=== PATIENT | female | born 1995 | race Caucasian/White ===

== ENCOUNTER 2017-08-23 18:34 | Emergency (ER) | payer MEDICAID ==
[~2017-08-23] VITALS: Ht 165.1 cm; Wt 97.5 kg
[2017-08-23 19:15] LABS: URINE BILIRUBIN - DIPSTICK NEGATIVE (NEG); URINE BLOOD 3+ (NEG)
[2017-08-23 19:43] LABS: HEMOGLOBIN 14.1 g/dL (12.2-16.2)
[2017-08-23 19:44] LABS: LYMPH # 2.6 K/mm3 (0.7-4.5)
--- NOTE | 2017-08-23 20:05 | RADIOLOGY REPORT PS360 ---
CT HEAD W/O CONTRAST INDICATION: Generalized facial tingling, headache Routine axial images for brain followed by additional post-processing axial bone window images. Axial CT scanning from the base of the skull through the vertex to evaluate the brain was performed. Subsequent post processing 2-D CT bone windows were submitted to PACS and are useful to evaluate calvarium, visualize portions of paranasal sinuses, mastoids and base of skull. Multiaxial scans are obtained from the base of the skull to the vertex and performed without contrast. The base of the skull appeared normal except for mild to moderate inflammatory changes of the ethmoid sinuses. The ventricular system was normal. There was no ischemic infarct or bleed and there were no extra-axial fluid collections. The bony calvarium appeared intact. IMPRESSION: Negative noncontrast CT scan of the brain except for mild and likely acute ethmoid sinus disease
--- NOTE | 2017-08-23 20:49 | Emergency Room Report ---
History of Present Illness Time Seen by 2003 Presenting Problem in Triage Pt arrived:Walked Presenting Problem:NUMBNESS/ TINGLING TO BOTH HANDS AND LIPS, BEGAN 153 TODAY, A/O SPEECH CLEAR, AMBULATORY WITHOUT ASSIST Onset of symptoms date/time:/ or onset unknown for:MEDICAL HX UNKNOWN Treatment Prior to Arrival: OPHTHALMIC ASST Provided by: Sepsis Risk Assessment: Temp: 98.4 B/P: 117/69 MAP: 105 Pulse: 58 Resp: 20 Recent fever? N Clinical Suspician of Infection? N Mental Status: 1 - Regular (Normal Baseline) Sepsis Risk:Low Sepsis Risk Have you (or family members/close friends) recently traveled outside the [place]? N If Yes, where/when: Have you had exposure to infectious disease within the past month? N TB? Other? Specify: Source patient, RN notes reviewed, old records Exam Limitations no limitations Comment episode of tingling to perioral and upper ext with some discoloration to fingertips but no neuro sx and no speech or visual sx and at baseline now- Cardiac Chest Pain Chest pain indicative of cardiac No Timing/Duration this evening Severity moderate ALLERGIES Coded Allergies: Penicillins (12/24/16) topiramate (From TOPAMAX) (12/24/16) Home Medications Active Scripts Prednisone (Prednisone 20MG) 20 MG PO BID #10 TAB Prov: 12/24/16 BENZONATATE (Benzonatate) 100 MG PO TID #15 CAP Prov: 12/24/16 Reported Medications Albuterol Sulfate (Ventolin Hfa) 0.09 MG IH Q4HP PRN BREATHING #18 History Medical History General CAD? No Angina: No [place]: No Hypertension? No Hyperlipidemia? No CHF? No DVT? No PE? No COPD? No Asthma? Yes Anemia? No GERD? No Gastric ulcers? No GI Bleed? No Hernia? No Thyroid Problems? No Hypothyroidism? No CVA? No Seizures? No Diabetes? No Renal Insuffiency? No End Stage Renal Disease? No UTI? Yes Stones? No BPH? No GB Disease: No Nephritic Syndrome? No Asplenia? No Hepatitis? No Sickle Cell Disease? No Arthritis? No Migraines? No Cataracts? No Glaucoma? No MRSA? No HIV? No TB? No Anxiety? Yes Depression? No Cancer? No More? 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 Respiratory denies cough, denies shortness of breath, denies wheezing Cardiovascular denies chest pain, denies palpitations, denies syncope Gastrointestinal denies abdominal pain, denies diarrhea, denies vomiting Genitourinary denies: dysuria, frequency, hesitancy, hematuria. Musculoskeletal denies back pain, denies joint pain, denies joint swelling, denies neck pain Skin denies rash Psychiatric/Neurological see HPI, denies headache, denies seizure, tingling Physical Exam Vital Signs Vital Signs Date Time Temp Pulse Resp B/P Pulse O2 O2 Flow FiO2 Ox Delivery Rate 08/23 2015 98.4 58 20 117/69 99 08/23 1838 98.1 76 18 140/88 99 - WBC >12,000 or <4,000 or 10% bands? 2 or more SIRS Criteria Met? B/P:117/69 MAP:105 Creatinine >2.0? UA output<0.5ml/kg/hr for 2 hrs? Platelet count >100,000? Lactate >2.0mmol/1? INR >1.2 or PTT > than 60 sec? Evidence of Organ Dysfunction? Provider documented clinical suspician of infection? N Sepsis Criteria Count: 0 Sepsis Risk: Low Sepsis Risk General Appearance no apparent distress Eye Exam - bilateral eye PERRL, bilateral eye EOMI Ear, Nose, Throat normal ENT inspection Neck supple Respiratory Status No: respiratory distress. Lung Sounds bilateral: lungs clear. 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 No Results/Orders Laboratory Tests 08/23/17 1855: Sodium 140, Potassium 3.9, Chloride 105, Carbon Dioxide 26, BUN 8, Creatinine 0.8, Estimated Creat Clear 171, Estimated GFR (MDRD) 91, Glucose 85, Calcium 9.3 , Total Bilirubin 0.2, AST 12 L, ALT 31, Alkaline Phosphatase 86, Total Protein 8.7 H, Albumin 4.3, Globulin 4.4 H, Albumin/Globulin Ratio 1.0 L, WBC 11.6 H , RBC 4.95, Hgb 14.1, Hct 45.6, MCV 92.1, RDW 13.3, Plt Count 301, MPV 7.6, Gran % 65.7, Gran # 7.6, Lymphocytes % 24.0, Monocytes % 4.7, Eosinophils % 5.2, Basophils % 0.5, Lymphocytes # 2.6, Monocytes # 0.5, Eosinophils # 0.6 H, Basophils # 0.1, PUBS MCHC 31.0 L, MCH 28.5, Urine Color YELLOW, Urine Appearance SL CLOUDY, Urine pH 7.0, Ur Specific [place] 1.020, Urine Protein NEGATIVE, Urine Ketones NEGATIVE, Urine Blood 3+ H, Urine Nitrate NEGATIVE, Urine Bilirubin NEGATIVE, Urine Urobilinogen 0.2, Ur Leukocyte Esterase 2+ H, Urine RBC 50-100, Urine WBC 20-50, Ur Squamous Epith Cells 10-20, Amorphous Sediment 3+, Urine Bacteria 2+, Urine Glucose NEGATIVE Orders Procedure Date/time Status DIET-NOTHING BY MOUTH 08/[address] HEAD REQ 08/23 1932 Complete CBC WITH AUTO DIFF 08/23 1932 Complete CHEM 12 PROFILE 08/23 1932 Complete CULTURE, URINE 08/23 1855 Active URINALYSIS/COMPLETE 08/23 1849 Complete URINE 08/23 1849 Complete Departure Departure Time of Disposition 2046 Disposition DC Home or Self Care(routine) Clinical Impression Primary Impression: Perioral numbness Secondary Impressions: UTI (urinary tract infection) Qualifiers: Urinary tract infection type: acute cystitis Hematuria presence: without hematuria Qualified Code: N30.00 - Acute cystitis without hematuria Condition STABLE Referrals JUAN MANUEL ROB (Family) Patient Instructions DI for Numbness/tingling Additional Instructions use meds and see pcp for follow up and urine culture Discharge Counseling Counseled pt/family regarding diagnosis, test results, medications/RX, follow up needs Prescriptions Current Visit Scripts Ciprofloxacin HCl (Cipro 500MG TAB) 500 MG PO BID #14 TAB ED Critical Care Critical Care No at [id number]
[2017-08-23 21:01] VITALS: BP 120/68
--- OUTSIDE RECORDS SUMMARY | 2017-09-01 10:10 | External Medical Summary Rpt | CCD ---
Author Author , SJ Organization SJ Address Unknown Phone [email or web address] Care Team Providers Care Communication Analyst Name Role Phone [employer] Unavailable Unavailable INC, [employer] AHMED ADN, AHMED ADN Unavailable Unavailable AHMED ADN, AHMED ADN Unavailable Unavailable [facility] Unavailable [facility]available [facility], [facility] ALLRAN JR KASSANDRA, ALLRAN Unavailable Unavailable JR KASSANDRA ENGLISH AMBULETT & Unavailable Unavailable AMBULANC, ENGL[facility] ENGLISH AMBULETT & Unavailable Unavailable AMBULANC, [facility] LUIS FERNANDO LES, LUIS FERNANDO Unavailable Unavailable LES LUIS FERNANDO LES, LUIS FERNANDO Unavailable Unavailable LES [facility] Unavailable Unavailable [place], [facility] Unavailable Unavailable MEDICAL GROUP, [facility] BEINEKE, BEINEKE Unavailable Unavailable BEINEKE NANI, BEINEKE Unavailable Unavailable NANI CURRAN AURORA, CURRAN Unavailable Unavailable AURORA BESSON, MANE A, Unavailable Unavailable BESSON, MANE A [employer] Unavailable Unavailable INC., [employer] LEZAMA, LEZAMA Unavailable Unavailable LEZAMA LASHON, LEZAMA LASHON Unavailable Unavailable [facility] Unavailable Unavailable [facility], [facility] PHYSICIAN Unavailable Unavailable PRACTICE [facility], [facility] [employer] Unavailable Unavailable CORBIN JAM, CORBIN JAM Unavailable Unavailable [facility]-VISE, Unavailable Unavailable [facility] SARAH, Unavailable Unavailable [facility] SARAH BUTROS MARISEL, BUTROS Unavailable Unavailable MARISEL [facility], Unavailable Unavailable [facility] PIERCE MARIANA, PIERCE Unavailable Unavailable MARIANA PIERCE MARIANA, PIERCE Unavailable Unavailable MARIANA [facility] Unavailable Unavailable [facility], [facility] Unavailable Unavailable [facility]OC, [facility] ANNE ALDEN, ANNE Unavailable Unavailable ALDEN CHATTHA SHANNON, CHATTHA Unavailable Unavailable SHANNON [facility] Unavailable Unavailable [facility] WAI BARNETT, WAI Unavailable Unavailable ANIBAL BARNETT, CARRENO Unavailable Unavailable ANIBAL [facility], Unavailable Unavailable [facility] RODAS, RODAS Unavailable Unavailable HERNANDO, HERNANDO Unavailable Unavailable RICHARDSON SERA, Unavailable Unavailable RICHARDSON SERA [facility] Unavailable Unavailable SPECIAL, [facility] FLOMENHOFT MANUEL, Unavailable Unavailable FLOMENHOFT MANUEL FLOMENHOFT MANUEL, Unavailable Unavailable [facility]OMENHO[facility] MANUEL MAGANA SET, MAGANA SET Unavailable Unavailable FLAVIO, FLAVIO Unavailable Unavailable FLAVIO JANA, FLAVIO Unavailable Unavailable JANA FLAVIO JANA, FLAVIO Unavailable Unavailable JANA NONA, NONA Unavailable Unavailable NONA, NONA Unavailable Unavailable GRAEBE, ZEINAB S, Unavailable Unavailable GRAEBE, ZEINAB S GREISNER III, Unavailable Unavailable GREISNER III RUSSEL RHO, RUSSEL Unavailable Unavailable RHO RUSSEL RHO, RUSSEL Unavailable Unavailable RHO HAGENSCHNEIDER LASHON, Unavailable Unavailable HAGENSCHNEIDER LASHON HAGENSCHNEIDER LASHON, Unavailable Unavailable HAGENSCHNEIDER LASHON HAJIBRAHIM DHAVAL, Unavailable Unavailable HAJIBRAHIM DHAVAL ZEPEDA CLEVELAND, Unavailable Unavailable ZEPEDA CLEVELAND ZEPEDA C[place]AND, Unavailable Unavailable ZEPEDA [facility] ROJAS JOSE, ROJAS Unavailable Unavailable JOSE OKEEFE JOSE, OKEEFE Unavailable Unavailable JOSE [facility] Unavailable Unavailable INC, [facility] CHAWLA FERMÍN, CHAWLA Unavailable Unavailable FERMÍN CHAWLA, ZEINAB S, Unavailable Unavailable CHAWLA, ZEINAB S SIENA, DOUGLAS, SIENA, Unavailable Unavailable DOUGLAS HOWARD JANA, HOWARD JANA Unavailable Unavailable HOWARD JANA, HOWARD JANA Unavailable Unavailable HOUSMAN SOY, HOUSMAN Unavailable Unavailable SOY HOUSMAN SOY, HOUSMAN Unavailable Unavailable SOY BHAVIN CEC, BHAVIN Unavailable Unavailable CEC KABA SATYA, KABA SATYA Unavailable Unavailable KABA SATYA, KABA SATYA Unavailable Unavailable ASTRID NAN, ASTRID Unavailable Unavailable NAN ASTRID NAN, ASTRID Unavailable Unavailable NAN [facility] Unavailable [facility]available [facility], [facility] MCINTYRE, MCINTYRE Unavailable Unavailable [facility] Unavailable Unavailable GROUP PS, [facility] Unavailable Unavailable [facility], [facility], Unavailable Unavailable [facility] Unavailable Unavailable HOLDING, [facility] Unavailable Unavailable [facility]INGS, [facility] Unavailable Unavailable HOLDINGS[facility] Unavailable Unavailable HOLDINGS, [facility], Unavailable Unavailable [facility] ADLER TONYA, ADLER Unavailable Unavailable TONYA ADLER TONYA, ADLER Unavailable Unavailable TONYA [facility] Unavailable Unavailable COGOVT, [facility] Unavailable Unavailable COGOVT, [facility] SIENNA ANT, SIENNA ANT Unavailable Unavailable SIENNA ANT, SIENNA ANT Unavailable Unavailable ROSAMARIA DREAD, ROSAMARIA Unavailable Unavailable DREAD ROSAMARIA DREAD, ROSAMARIA Unavailable Unavailable DREAD ROSAMARIA, KRAIG, Unavailable Unavailable ROSAMARIA, KRAIG DREW GRE, Unavailable Unavailable DREW GRE DREW GRE, Unavailable Unavailable DREW GRE INGE CHAD, Unavailable Unavailable INGE CHAD INGE CHAD, Unavailable Unavailable INGE CHAD INGE, CHAD B, Unavailable Unavailable INGE, CHAD B MAUL PRANAV, MAUL PRANAV Unavailable Unavailable [facility] Unavailable Unavailable ASSOCIAT, [facility] MOODY LOPEZ JR Unavailable Unavailable F, JOHN RODRIGUEZ, MOODY F [facility] Unavailable Unavailable CARE [facility], [facility], TELE RN [facility] Unavailable Unavailable [facility] TELE RN [facility] MAYBERRY DARRION, MAYBERRY DARRION Unavailable Unavailable MAYBERRY DARRION, MAYBERRY DARRION Unavailable Unavailable [facility], Unavailable Unavailable [facility] HERBERTH EDW, HERBERTH Unavailable Unavailable EDW HERBERTH EDW, HERBERTH Unavailable Unavailable EDW MD STEPHEN CORTEZ, DIEGO, Unavailable Unavailable MD [facility], Unavailable Unavailable [facility] Unavailable Unavailable AMBULANCE SE, [facility] Unavailable Unavailable AMBULANCE SE, [facility] Unavailable Unavailable URGENT TREAT, [facility], Unavailable Unavailable PLLC, [facility] SCHULTE CHR, SCHULTE CHR Unavailable Unavailable SCHULTE CHR, [facility] Unavailable [facility]available [facility] Unavailable Unavailable LAB[facility] PICKJACIIMER RADAMES, Unavailable Unavailable [facility]ICK[facility]ACIIMER [facility], [facility] PRAKASH MUH, PRAKASH Unavailable Unavailable MUH TEE JAIN, Unavailable Unavailable TEE JAIN JR. JAM, Unavailable Unavailable JR. LOTUS RICHARDS RUSSELL Unavailable Unavailable YESSENIA JEAN, YESSENIA Unavailable Unavailable MIRANDA ENGEL NANI, ENGEL Unavailable Unavailable NANI NILDA MIRANDA, NILDA MIRANDA Unavailable Unavailable SOKAN BAB, SOKAN BAB Unavailable Unavailable [facility], Unavailable Unavailable [facility] Unavailable Unavailable EQUIPME, [facility] Unavailable Unavailable EMERGENCY PHYS, [facility] SPIREK ANI, SPIREK Unavailable Unavailable ANI SPIREK ANI, SPIREK Unavailable Unavailable ANI SPIREK, [place] J, Unavailable Unavailable SPIREK, [facility] Unavailable Unavailable [facility], [facility] EVI MAR, EVI Unavailable Unavailable [facility] Unavailable Unavailable [facility], [facility] BROOKS DIOGENES, BROOKS Unavailable Unavailable DIOGENES SWINEY PAT, SWINEY Unavailable Unavailable PAT SWINEY PAT, SWINEY Unavailable Unavailable PAT TANOUS, JR EDW, Unavailable Unavailable TANOUS, JR EDW TANOUS, JR EDW, Unavailable Unavailable TANOUS, JR EDW ELADIO, ELADIO Unavailable Unavailable MONTILLA MOL, MONTILLA MOL Unavailable Unavailable [facility] Unavailable Unavailable LLC, [facility] MARYANN ALICIA, MARYANN Unavailable Unavailable ALICIA MARYANN ALICIA, MARYANN Unavailable Unavailable [facility], Unavailable Unavailable [facility] Unavailable [facility] VILLAFLOR OSI, Unavailable Unavailable VILLAFLOR OSI VILLAFLOR OSI, Unavailable Unavailable VILLAFLOR OSI VORKPOR EMIGDIO, VORKPOR Unavailable Unavailable EMIGDIO VORKPOR EMIGDIO, VORKPOR Unavailable Unavailable EMIGDIO [facility] Unavailable Unavailable #[id number], [id number] # Unavailable [facility]available [id number], [facility] # [id number] [facility] Unavailable Unavailable DEPT KIERA, [facility] DEPT K[facility] Un[facility], [facility] YONGBANG ALB, Unavailable Unavailable [facility] YOUNG VIRGINIE, YOUNG VIRGINIE Unavailable Unavailable YOUNG JR VIRGINIE, YOUNG Unavailable Unavailable JR VIRGINIE YOUNG JR VIRGINIE, YOUNG Unavailable Unavailable JR VIRGINIE YOUNG, DINAH R, Unavailable Unavailable YOUNG, DINAH R [facility], Unavailable Unavailable [facility] RADHA MAT, RADHA MAT Unavailable Unavailable VALERIE GARCIA, Unavailable Unavailable VALERIE GARCIA Purpose Continuity of Care Document - 02-19-2007 through 2016 Problems Code Diagnosis DOS Provider Status R21 RASH AND 08-01-2017 [facility] NONSPECIFIC ASSOC OF SKIN ERUPTION [id number] ADVERS EFF 08-01-2017 [facility] OTH RX MEDS [facility] BIO ASSOC OF SUBSTANCES INIT ENC [id number] ANAPHYLACTI 08-01-2017 [facility] & C SHOCK [facility] UNSPECIFIED ASSOC OF INITIAL ENCOUNTER J029 ACUTE 06-27-2017 [facility] UNSPECIFIED J4521 MILD 06-27-2017 [facility] INTERMITTEN [facility]INIC T ASTHMA WITH ACUTE EXACERBATIO N R198 OTH SPEC SX 06-13-2017 [facility] IN[facility] THE [place] DIGESTV SYS & ABD H79650 ENCOUNTER 06-07-2017 [facility] JET MAN EXAM DISTRICT GENERAL RTN HLTH DEPT W/O KIERA ABNORMAL FIND Z113 ENCOUNTER 06-07-2017 [facility] SCREEN DISTRICT INFECTIONS HLTH DEPT SEXL MODE KIERA TRANSMISSN Z1239 ENCOUNTER 06-07-2017 [facility] OTHER DISTRICT SCREENING HLTH DEPT MALIG KIERA NEOPLASM BREAST Z3042 ENCOUNTER 06-07-2017 [facility] SURVEILLANC DISTRICT E HLTH DEPT INJECTABLE KIERA CONTRACEPTI VE Z3189 ENCOUNTER 06-07-2017 [facility] FOR OTHER DISTRICT PROCREATIVE HLTH DEPT MANAGEMENT KIERA Z3202 ENCOUNTER 06-07-2017 [facility] FOR DISTRICT HLTH DEPT TEST RESULT KIERA NEGATIVE R5383 OTHER 06-06-2017 [facility] [place] Z0000 ENCOUNTER 06-06-2017 [facility] GEN ADULT [facility] MED EXAM [place] W/O ABNORMAL FIND K5900 CONSTIPATIO 05-16-2017 [facility] [place] [facility] UNSPECIFIED R109 UNSPECIFIED 05-16-2017 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 M4606 SPINAL 02-07-2017 NONA ENTHESOPATH Y LUMBAR REGION M545 LOW BACK 02-07-2017 NONA PAIN K19003 MUSCLE 02-07-2017 NONA SPASM OF BACK M9903 SEGMENTAL & 02-07-2017 NONA SOMATIC DYSFUNCTION OF LUMBAR REGION M9904 SEGMENTAL & 02-07-2017 NONA SOMATIC DYSFUNCTION OF SACRAL REGION R1110 VOMITING 02-07-2017 [facility]O [facility] UNSPECIFIED URBAN COGOVT R410 DISORIENTAT 02-07-2017 [facility] [place]TE ION URBAN UNSPECIFIED COGOVT R4182 ALTERED 02-07-2017 [facility] STATUS ASSOC UNSPECIFIED R51 HEADACHE 02-07-2017 [facility]UN[facility]ETTE URBAN COGOVT R569 UNSPECIFIED 02-07-2017 [facility] CONVULSIONS [place] [id number] STRAIN 02-07-2017 NONA MUSCLE FASCIA & TENDON LOW BACK INITIAL Z833 FAMILY 02-07-2017 [facility] HISTORY OF HEALTH DIABETES [place] MELLITUS Z880 ALLERGY 02-07-2017 [facility] STATUS TO HEALTH PENICILLIN [place] Z888 ALLERGY 02-07-2017 [facility] STATUS OT HEALTH RX MEDS & [place] BIOLOG SUBSTANC STS J101 FLU D/T OTH 01-17-2017 [facility] ID FLU CLINIC VIRUS OTH RESP MANIFESTATI ONS R05 COUGH 01-17-2017 [facility] J209 ACUTE 12-24-2016 [facility] UNSPECIFIED INC J40 BRONCHITIS 12-24-2016 [facility] NOT PHYSICIANS, SPECIFIED PLLC ACUTE OR CHRONIC Z7689 PERSONS 12-15-2016 [facility] CIRCUMSTANC ES J020 STREPTOCOCC 12-10-2016 [facility] AL [facility]INIC PHARYNGITIS O69838 PAIN IN 10-23-2016 [facility] RIGHT N EMERGENCY SHOULDER PHYS T34974 PAIN IN 10-23-2016 [facility] [place] RIGHT ELBOW RADIOLOGY Y03125 PAIN IN 10-23-2016 [facility] [place] RIGHT KNEE RADIOLOGY R0781 PLEURODYNIA 10-23-2016 [facility]0789 OTHER CHEST 10-23-2016 [facility] [place] PAIN RADIOLOGY D24794L ABRASION OF 10-23-2016 [facility] RIGHT N EMERGENCY ELBOW PHYS INITIAL ENCOUNTER V32729F ABRASION 10-23-2016 [facility] RIGHT KNEE N EMERGENCY INITIAL PHYS ENCOUNTER L80887 OTHER LONG 10-23-[address] [place] [facility] CURRENT HOSPITAL DRUG THERAPY L299 PRURITUS 07-01-2016 [facility] UNSPECIFIED CLINIC L309 DERMATITIS 06-30-2016 [facility] UNSPECIFIED N EMERGENCY PHYS Z886 ALLERGY 06-30-2016 [facility] STATUS TO [facility]ITY ANALGESIC HOSPITAL AGENT STATUS L509 URTICARIA 06-28-2016 [facility] UNSPECIFIED N EMERGENCY PHYS Z881 ALLERGY 06-28-2016 [facility] STATUS TO COMMUNITY OTHER HOSPITAL ANTIBIOTIC AGENTS STATUS Z6854 BODY MASS 06-08-2016 [facility] INDEX BMI DISTRICT PED >/EQUAL HLTH DEPT 95TH% FOR KIERA AGE R040 EPISTAXIS 06-07-2016 [facility] [id number] CONTUSION 06-07-2016 [facility] OF NOSE N EMERGENCY INITIAL PHYS ENCOUNTER Z9049 ACQUIRED 06-07-2016 [facility] ABSENCE OTH COMMUNITY SPEC PARTS HOSPITAL DIGESTIVE TRACT K200 EOSINOPHILI 05-12-2016 [facility] C DIGESTIVE ESOPHAGITIS CARE CENTER R112 NAUSEA WITH 05-12-2016 [facility] DIGESTIVE UNSPECIFIED CARE CENTER B372 CANDIDIASIS 05-06-2016 [facility] OF SKIN ELIZABETH AND NAIL HOLDINGS E538 DEFICIENCY 05-06-2016 [facility] OF OTHER [facility]IZ[facility] SPECIFIED B HOLDINGS GROUP VITAMINS M546 PAIN IN 05-06-2016 [facility] THORACIC [facility] SPINE HOLDINGS N62 HYPERTROPHY 05-06-2016 [facility] OF BREAST [facility]IZ[facility] HOLDINGS R12 HEARTBURN 05-06-2016 [facility] ELIZABETH HOLDINGS K219 GASTRO-ESOP 04-28-2016 [facility] REFLUX ANESTHESIA DISEASE GROUP PS WITHOUT ESOPHAGITIS A0839 OTHER VIRAL 01-15-2016 [facility] ENTERITIS [facility] URGENT TREAT J4530 MILD 01-15-2016 [facility] ASTHMA URGENT UNCOMPLICAT TREAT ED W30850 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[facility] 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 KIERA J028 ACUTE 11-24-2015 [facility] PHARYNGITIS [facility] DUE TO URGENT OTHER SPEC TREAT ORGANISMS J4522 MILD 11-24-2015 [facility] T ASTHMA URGENT WITH STATUS TREAT ASTHMATICUS R062 WHEEZING 11-24-2015 [facility] URGENT TREAT R102 PELVIC AND 10-17-2015 VORKPOR EMIGDIO PERINEAL PAIN D529 FOLATE 09-10-2015 [facility] DEFICIENCY DISTRICT ANEMIA HLTH DEPT UNSPECIFIED KIERA Z23 ENCOUNTER 09-10-2015 [facility] FOR DISTRICT IMMUNIZATIO HLTH DEPT N KIERA R1310 DYSPHAGIA 09-05-2015 EAR, NOSE UNSPECIFIED AND THROAT SPECIAL R1313 DYSPHAGIA 09-01-2015 [facility] PHARYNGEAL [facility] PHASE URGENT TREAT 5589 OTH&UNSPEC 06-14-2015 [facility] BEAL NONINFECTIO US GASTROENTER ITIS&COLITI S 31343 NAUSEA WITH 06-14-2015 [facility] [place] VOMITING RADIOLOGY 98182 ABDOMINAL 06-14-2015 [facility] BEAL PAIN RIGHT LOWER QUADRANT V2549 SURVEILLANC 06-10-2015 [facility] E OTH PREV DISTRICT PRSC [facility] DEPT CONTRACEPT KIERA METHOD V2689 OTHER 06-10-2015 [facility] SPECIFIED DISTRICT PROCREATIVE [facility] DEPT MANAGEMENT KIREA 61658 ASTHMA, 05-08-2015 [facility]PECIFIED [facility] , INC UNSPECIFIED STATUS 71092 UNSPECIFIED 05-08-2015 [facility] SITE OF PHYSICIANS, ANKLE PLLC SPRAIN AND STRAIN 2299 BENIGN 05-06-2015 [place] NEOPLASM OF [facility] HOSPITAL UNSPECIFIED SITE 5990 URINARY 05-06-2015 [facility] PAT TRACT INFECTION SITE NOT SPECIFIED 6202 OTHER AND 05-06-2015 [facility] PAT UNSPECIFIED OVARIAN CYST 46486 ABDOMINAL 05-06-2015 [facility] PAIN, COMMUNITY UNSPECIFIED HOSPITAL SITE 7919 OTHER 05-06-2015 [facility] NONSPECIFIC COMMUNITY FINDING HOSPITAL EXAMINATION OF URINE V140 PERSONAL 05-06-2015 [facility] HISTORY OF COMMUNITY ALLERGY TO HOSPITAL PENICILLIN V1582 PERS HX 05-06-2015 [facility] TOBACCO USE COMMUNITY PRESENTING HOSPITAL HAZARDS HEALTH 73246 PAIN IN 02-22-2015 [facility] [place] JOINT RADIOLOGY PELVIC REGION AND THIGH 86113 CHEST PAIN 02-22-2015 [facility] UNSPECIFIED [facility] AMBULANCE SE 8470 NECK SPRAIN 02-22-2015 [facility] EDW AND STRAIN 8472 LUMBAR 02-22-2015 [facility] EDW SPRAIN AND STRAIN 9221 CONTUSION 02-22-2015 [facility] EDW OF CHEST WALL 9222 CONTUSION 02-22-2015 [facility] EDW OF ABDOMINAL WALL 83735 INJURY OF 02-22-2015 [facility] [place] FACE AND RADIOLOGY NECK OTHER AND UNSPECIFIED 57678 OTHER 02-22-2015 [facility] [place] INJURY OF RADIOLOGY OTHER SITES OF TRUNK 3688 OTHER 02-03-2015 [facility] SPECIFIED MEDICAL VISUAL IMAGING ASS DISTURBANCE S 7231 CERVICALGIA 02-03-2015 [facility] 6259 UNSPEC 12-19-2014 [facility] [place] SYMPTOM RADIOLOGY ASSOC W/FEMALE GENITAL ORGANS 93091 ABDOMINAL 12-19-2014 [place] TENDERNESS [facility] RIGHT LOWER HOSPITAL QUADRANT V1329 PERSONAL HX 12-19-2014 [facility]&OBST ETRIC D/O 7804 DIZZINESS 12-11-2014 [facility] AND CLINIC GIDDINESS 53915 ACUTE 12-03-2014 IN[facility] SEROUS CHAD OTITIS MEDIA 4770 ALLERGIC 12-03-2014 INGE RHINITIS CHAD DUE TO POLLEN 4778 ALLERGIC 12-03-2014 INGE RHINITIS CHAD DUE TO OTHER ALLERGEN 07769 EXTRINSIC 12-03-2014 INGE ASTHMA, CHAD WITH EXACERBATIO N 0088 INTESTINAL 11-01-2014 HOUSMAN SOY INFECTION DUE TO OTHER ORGANISM NEC 76632 DIARRHEA 11-01-2014 [facility] SOY 5362 PERSISTENT 10-31-2014 KABA SATYA VOMITING 80839 SHORTNESS 10-27-2014 [place] [facility] MEDICAL IMAGING ASS 77284 ASTHMA 10-24-2014 [facility] UNSPECIFIED CLINIC WITH EXACERBATIO N 56722 UNSPECIFIED 10-23-2014 [facility]ULT SLEEP PRIMARY DISTURBANCE CARE CLI 63541 INSOMNIA 10-23-2014 [facility]ULT UNSPECIFIED PRIMARY CARE CLI 3829 UNSPECIFIED 10-15-2014 [facility] OTITIS [facility] MEDIA HOLDINGS 462 ACUTE 10-15-2014 [facility] PHARYNGITIS [facility] HOLDINGS 76274 GENERALIZED 10-15-2014 [facility] PAIN [facility]IZ[facility] HOLDINGS 0549 HERPES 10-10-[address] [facility] OF WITHOUT [place] [facility] MENTION OF COMPLICATIO N 0340 STREPTOCOCC 10-09-2014 [facility] AL SORE CLINIC THROAT 73805 UNSPECIFIED 09-30-2014 [facility] INFECTIVE CLINIC OTITIS EXTERNA 7862 COUGH 09-30-2014 [facility] 4779 ALLERGIC 08-22-2014 [facility] RHINITIS PRIMARY CAUSE CARE CLI UNSPECIFIED 7245 UNSPECIFIED 08-22-2014 [facility] ADULT BACKACHE PRIMARY CARE CLI 7177 CHONDROMALA 08-14-2014 [facility] ORTHOPAEDIC P[facility]LLA S SPORT 50809 PAIN IN 08-10-2014 [facility] JOINT, [place] AUSTEN 56697 PAIN IN 07-30-2014 [place] JO[facility], MEDICAL SHOULDER IMAGING ASS REGION 8409 SPRAIN&STRA 07-30-2014 FLAVIO JANA IN UNSPEC SITE SHOULDER&UP PER ARM E9288 OTHER 07-30-2014 FLAVIO JANA ACCIDENT 28783 SPRAIN AND 07-12-2014 [facility] STRAIN OF DELTOID OF ANKLE 20558 UNSPECIFIED 06-11-2014 LUIS FERNANDO LES TINNITUS 59405 SUBJECTIVE 06-11-2014 [facility] TINNITUS PHYSICIAN PRACTICE L 3899 UNSPECIFIED 06-11-2014 [facility] HEARING PHYSICIAN LOSS PRACTICE L 91247 UNSPECIFIED 06-06-2014 [place] VAGINITIS CLINIC AND VULVOVAGINI TIS 7821 RASH AND 06-06-2014 [place] OTHER CLINIC NONSPECIFIC SKIN ERUPTION 58878 UNSPECIFIED 05-31-2014 [place] OTALGIA CLINIC 41450 PAIN IN 05-31-2014 [place] JOINT, CLINIC ANKLE AND FOOT 22062 OTHER 02-25-2014 INGE CHRONIC CHAD ALLERGIC CONJUNCTIVI TIS 00082 EXTRINSIC 02-25-2014 INGE ASTHMA, CHAD UNSPECIFIED 7840 HEADACHE 02-13-2014 [facility] [place] 4659 ACUTE URIS 02-01-2014 ASTRID NAN OF UNSPECIFIED SITE V202 ROUTINE 01-14-2014 [facility] OR [place] CHILD HEALTH CHECK 76545 WHEEZING 12-20-2013 [facility] ANIBAL V0481 NEED 12-06-2013 [facility] PROPHYLACT [place] C VACCINATION &INOCULATIO N FLU 21597 UNSPECIFIED 11-08-2013 [facility] ACUTE [place] NONSUPPURAT MORENITA OTITIS MEDIA 4772 ALLERGIC 11-05-2013 [facility] RHINITIS CHAD DUE TO ANIMAL HAIR AND DANDER V727 DIAGNOSTIC 11-05-2013 IN[facility] SKIN AND CHAD SENSITIZATI ON TESTS 7295 PAIN IN 10-30-2013 [facility], SOFT TELE RN TISSUES OF [place] [facility] [facility] 7823 EDEMA 10-30-2013 [facility], TELE RN [place] [facility] 7881 DYSURIA 10-30-2013 [facility] [place] 9599 INJURY 10-30-2013 HAGENSCHNEI OTHER AND CARLOS LASHON UNSPECIFIED UNSPECIFIED SITE 31468 ACUT 10-11-2013 INGE SUPPRATV CHAD OTITIS MEDIA W/O SPONT RUP EARDRUM V720 EXAMINATION 10-11-2013 D[facility] OF EYES GRE AND VISION 89666 DISORDERS 10-09-2013 ASTRID NAN OF SOFT TISSUE UNSPECIFIED 4739 UNSPECIFIED 09-20-2013 [facility] SINUSITIS CHAD 47156 EXTRINSIC 09-20-2013 [facility] ASTHMA WITH CHAD STATUS ASTHMATICUS 41719 OBESITY, 09-07-2013 [facility] 20852 CHRONIC 09-07-2013 JR TANIA CHOLECYSTIT EDW IS 5758 OTHER 09-07-2013 SIENNA ANT SPECIFIED DISORDER OF GALLBLADDER 5759 UNSPECIFIED 09-04-2013 [facility] GALLBLADDER V7284 UNSPECIFIED 09-04-2013 [facility] VE EXAMINATION 88705 ABDOMINAL 08-08-2013 RUSSEL RHO PAIN RIGHT UPPER QUADRANT 41494 VOMITING 07-28-2013 [facility], ALONE TELE RN [facility] HOS 486 PNEUMONIA, 06-20-2013 [facility] ORGANISM CARLOS LASHON UNSPECIFIED 4660 ACUTE 06-18-2013 PIERCE MARIANA BRONCHITIS 2150 OTH HANK 04-10-2013 ADLER TONYA NEOPLSM CNCTV&OTH SFT TISS HEAD FCE&NCK 07200 NEOPLASMS 04-10-2013 HOWARD JANA UNSPECIFIED NATURE OTH SPECIFIED SITES 72929 ESOPHAGEAL 04-10-2013 [facility] 7856 ENLARGEMENT 04-10-2013 [facility] NODES V7263 PRE-PROCEDU 04-02-2013 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, WEIGHT GAIN TELE RN [facility] HOS 7842 SWELLING 02-28-2013 [facility], MASS OR [facility] LUMP IN [facility] HEAD AND HOS NECK V770 SCREENING 02-28-2013 [facility], FOR THYROID TELE RN DISORDER [facility] HOS V771 SCREENING 02-28-2013 [facility], FOR TELE RN DIABETES [facility] MELLITUS HOS 6119 UNSPECIFIED 12-07-2012 MARYANN ALICIA BREAST DISORDER 6262 EXCESSIVE 12-07-2012 MARYANN ALICIA OR FREQUENT MENSTRUATIO N 22409 OTHER 12-07-2012 MARYANN ALICIA MALAISE AND FATIGUE 55365 HEAD 11-08-2012 ENGLISH INJURY, AMBULETT & UNSPECIFIED AMBULANC 7291 UNSPECIFIED 11-01-2012 [facility]MED ADN MYALGIA AND MYOSITIS 28623 ABDOMINAL 11-01-2012 [facility] PAIN OTHER SPECIFIED SITE 49940 EOSINOPHILI 09-19-2012 [facility]UEL ESOPHAGITIS 2883 EOSINOPHILI 08-28-2012 [facility] HOSPI 5368 DYSPEPSIA&O 08-28-2012 [facility] DISORDERS FUNCTION STOMACH 5379 UNSPECIFIED 08-28-2012 [facility] HOSPI AND DUODENUM 5699 UNSPECIFIED 08-28-2012 [facility] INTEST[facility] 88515 NAUSEA 08-28-2012 [facility] 12025 ABDOMINAL 08-28-2012 [place] [facility], LEFT SERVICES LOWER QUADRANT 56353 ABDOMINAL 08-28-2012 [place] [facility] GENERALIZED V643 PROCEDURE 08-27-2012 [facility], NOT CARRIED TELE RN OUT FOR [facility] TELL[facility] OTHER HOS REASONS 35487 SWELLING OF 08-25-2012 [facility], LIMB TELE RN [facility] [place] HOS E8809 ACCIDENTAL 08-25-2012[facility] FALL ON OR RADIOLOGY FROM OTHER ASSOCIAT STAIRS OR STEPS E8889 UNSPECIFIED 08-25-2012 [facility] AD[facility] FALL 4610 ACUTE 08-01-2012 [facility] MAXILLARY SINUSITIS 59573 OPEN WOUND 03-07-2012 [facility] TE[facility] LIP WITHOUT HOSPITAL MENTION COMPLICATIO N E8490 PLACE OF 03-07-2012 [facility] OCCURRENCE, HOSPITAL HOME E8888 OTHER FALL 03-07-2012 [facility] 6200 FOLLICULAR 12-27-2011 [facility] [place] OVARY 3814 NONSUPPRATV 12-10-2011 JEFE DARRION OTITIS MEDIA NOT SPEC ACUT/CHRON V7231 ROUTINE 11-29-2011 PATHOLOGY & GYNECOLOGIC CYTOLOGY AL LAB EXAMINATION 4619 ACUTE 11-25-2011 JEFE DARRION SINUSITIS, UNSPECIFIED 80989 URINARY 11-25-2011 [facility] DARR[facility] FREQUENCY 6260 ABSENCE OF 10-13-2011 [facility] [employer] [facility] [employer] 29650 PAIN IN 10-01-2011 [place] JOINT, RADIOLOGY UPPER ARM ASSOCIAT 71255 CONTUSION 10-01-2011 [facility] OF [facility] 9593 INJURY 10-01-2011 [facility] OTHER&UNSPE RADIOLOGY CIFIED ASSOCIAT [facility] 6252 MITTELSCHME 09-19-2011 [facility] OSI 10408 PAIN IN 06-16-2011 [place] [facility], HAND RADIOLOGY ASSOCIAT 7937 NONSPC ABN 06-16-2011 [facility] [place] FINDNG RAD RADIOLOGY & OTH EXM ASSOCIAT [place] L SYS 05462 CLOS 06-16-2011 [facility] [place] [facility] MID/PROXIMA L PHALANX/PHA LANG HAND 70570 SPRAIN AND 06-16-2011 [facility] STRAIN OF HOSPITAL UNSPECIFIED SITE OF HAND 21776 CONTUSION 06-16-2011 [facility] 9594 INJURY 06-16-2011 [place] [place] OTHER AND RADIOLOGY UNSPECIFIED ASSOCIAT HAND EXCEPT FINGER E9270 OVEREXERTIO 06-16-2011 [facility] N FROM HOSPITAL SUDDEN STRENUOUS MOVEMENT 6253 DYSMENORRHE 10-21-2010 [facility] ANI A 4658 ACUTE URIS 10-13-2010 [facility] [place] OF OTHER MULTIPLE SITES 4871 INFLUENZA 10-13-2010 [facility] WITH OTHER HOSPITAL RESPIRATORY MANIFESTATI ONS 25768 OTHER 10-13-2010 [place] 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 E8496 PLACE OF 04-13-2010 [facility] PUBLIC BUILDING E9175 STRIKE 04-13-2010 [facility] K ACC OTH OBJ SPORTS W/FALL 2564 POLYCYSTIC 02-05-2010 [facility] GUPTA 5950 ACUTE 02-03-2010 [facility] 6268 OTH D/O 12-10-2009 [facility] MENSTRUATIO MEDICAL N&OTH ABN CLINIC BLEED FE GNT TRACT 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 32408 NYSTAGMUS 06-24-2009 CHILDRENS W/DEFIC VISION SMOOTH ANDLEARNING PURSUIT MOVEMENTS 9063 LATE EFFECT 05-26-2009 [facility] OF HOSPITAL CONTUSION 87079 CONTUSION 05-25-2009 [facility] OF [facility] E8499 UNSPECIFIED 05-25-[address] HOSPITAL OCCURRENCE E8859 FALL FROM 05-25-2009 [facility] OTHER HOSPITAL SLIPPING TRIPPING OR STUMBLING 05872 VISUAL 04-01-2009 [facility] 76965 MIGRAINE 04-17-2008 [facility] W/[facility] W/O INTRACT W/O STAT MIGRNOSUS 23637 EFFUSION OF 03-30-2008 [facility] ANKLE AND RADIOLOGY FOOT JOINT ASSOCIATES PSC 7812 ABNORMALITY 03-30-2008 [facility] OF [facility] 845 SPRAINS AND 03-30-2008 [facility] STRAINS OF HOSPITAL ANKLE AND FOOT 9160 HIP THI 03-30-2008 [facility] ABRASION/FR ICION BURN W/O INF 9170 ABRASION/FR 03-30-2008 [facility] ICTION [facility] FOOT&TOE W/O MENTION INF 11300 CONTUSION 03-30-2008 [facility] OF [facility] V642 SURG/OTH 03-30-2008 [facility] PROC NOT HOSPITAL CARRIED OUT BECAUSE PTS DECN 460 ACUTE 12-22-2007 [facility] ITIS INTERNAL MED 4780 HYPERTROPHY 12-18-2007 INGE, OF NASAL CHAD B TURBINATES 9953 ALLERGY 12-08-2007 [facility] UNSPECIFIED VALLEY NOT INTERNAL ELSEWHERE MED CLASSIFIED 5184 UNSPECIFIED 02-22-2007 [facility] EDEMA OF PEDIA LUNG 5839 NEPHRITIS&N 02-22-2007 [place] [facility] NOT AC/CHRN PEDIA W/UNS PATHAL LES Allergies, Adverse Reactions, Alerts Clinical Alert Notifications Alert Asthma: no influenza vaccine in the last 365 days Medications Na ND Rx Da Fi Fi Am Da Di Ph RX Ph St me C No te ll ll ou ys ag ar # ys at rm s nt no ma ic us Or Da si cy ia de te s n re d TR 50 09 10 30 30 00 KE Ac AZ 11 -1 -0 .0 00 NT ti OD 10 0- 6- 00 01 UC ve ON 43 20 20 03 [place] E 30 17 17 49 50 1 15 CV S MG PH AR TA MA BL CY ET LL C, DB A CV S PH AR MA CY #3 01 6 AC 61 09 10 50 10 00 KE Ac YC 44 -1 -0 .0 00 NT ti LO 20 1- 6- 00 01 UC ve 11 20 20 05 [place] R 20 17 17 84 40 1 70 CV 0 S MG PH AR TA MA BL CY ET LL C, DB A CV S PH AR MA CY #3 01 6 BE 67 08 09 21 7 00 KE Ac NZ 87 -2 -2 .0 00 NT ti ON 70 9- 2- 00 01 UC ve AT 10 20 20 05 [place] AT 60 17 17 51 E 5 88 CV 20 S 0 PH MG AR MA CA CY PS UL LL E C, DB A CV S PH AR MA CY #3 01 6 CE 68 08 09 14 7 00 KE Ac PH 18 -2 -2 .0 00 NT ti AL 00 9- 2- 00 01 UC ve EX 12 20 20 05 [place] IN 20 17 17 51 2 84 CV 50 S 0 PH MG AR MA CA CY PS UL LL E C, DB A CV S PH AR MA CY #3 01 6 VE 00 08 09 18 17 00 KE Ac NT 17 -3 -2 .0 00 NT ti OL 30 0- 2- 00 01 UC ve IN 68 20 20 05 [place] 22 17 17 06 HF 0 53 CV A S 90 PH AR MC MA G CY IN NAILS LL LE C, R DB A CV S PH AR MA CY #3 01 6 TR 50 08 09 30 30 00 KE Ac AZ 11 -1 -0 .0 00 NT ti OD 10 1- 8- 00 01 UC ve ON 43 20 20 03 [place] E 30 17 17 49 50 1 15 CV S MG PH AR TA MA BL CY ET LL C, DB A CV S PH AR MA CY #3 01 6 ME 00 08 09 21 6 00 KE Ac TH 60 -0 -0 .0 00 NT ti YL 34 7- 1- 00 01 UC ve NC 59 20 20 04 [place] ED 31 17 17 88 NI 5 23 CV SO S LO PH NE AR 4 MA CY MG LL DO C, SE PK DB A CV S PH AR MA CY #3 01 6 AZ 59 08 09 6. 5 00 KE Ac IT 76 -0 -0 00 00 NT ti HR 23 7- 1- 0 01 UC ve OM 06 20 20 04 [place] YC 00 17 17 88 IN 1 22 CV S 25 PH 0 AR MG MA CY TA BL LL ET C, DB A CV S PH AR MA CY #3 01 6 BU 00 06 07 30 30 00 KE Ac NC 37 -2 -2 .0 00 NT ti OP 83 6- 8- 00 01 UC ve IO 41 20 20 03 [place] N 20 17 17 92 HC 1 56 CV L S SR PH AR 15 MA 0 CY MG LL TA C, BL ET DB A CV S PH AR MA CY #3 01 6 SY 00 06 07 10 30 00 KE Ac MB 18 -2 -2 .1 00 NT ti IC 60 6- 8- 99 01 UC ve OR 37 20 20 03 KY T 02 17 17 92 16 0 58 CV 0- S 4. PH 5 AR MC MA G CY IN NAILS LL LE C, R DB A CV S PH AR MA CY #3 01 6 CI 13 06 07 30 30 00 KE Ac TA 66 -2 -2 .0 00 NT ti LO 80 6- 8- 00 01 UC ve NC 01 20 20 03 [place] AM 00 17 17 92 5 59 CV HB S R PH 20 AR MA MG CY TA LL BL C, ET DB A CV S PH AR MA CY #3 01 6 VE 00 06 07 18 30 00 KE Ac NT 17 -1 -0 .0 00 NT ti OL 30 2- 7- 00 01 UC ve IN 68 20 20 03 [place] 22 17 17 60 HF 0 12 CV A S 90 PH AR MC MA G CY IN NAILS LL LE C, R DB A CV S PH AR MA CY #3 01 6 TR 50 06 06 30 30 00 KE Ac AZ 11 -0 -3 .0 00 NT ti OD 10 7- 0- 00 01 UC ve ON 43 20 20 03 [place] E 30 17 17 49 50 1 15 CV S MG PH AR TA MA BL CY ET LL C, DB A CV S PH AR MA CY #3 01 6 NC 00 05 06 60 30 00 KE Ac OP 11 -2 -1 .0 00 NT ti RA 51 2- 6- 00 01 UC ve NO 66 20 20 03 [place] LO 00 17 17 07 L 3 86 CV 20 S PH MG AR MA TA CY BL ET LL C, DB A CV S PH AR MA CY #3 01 6 CI 13 05 06 30 30 00 KE Ac TA 66 -2 -1 .0 00 NT ti LO 80 2- 6- 00 01 UC ve NC 01 20 20 03 [place] AM 00 17 17 07 5 85 CV HB S R PH 20 AR MA MG CY TA LL BL C, ET DB A CV S PH AR MA CY #3 01 6 AZ 59 05 06 6. 5 00 KE Ac IT 76 -2 -1 00 00 NT ti HR 23 2- 6- 0 01 UC ve OM 06 20 20 03 [place] YC 00 17 17 07 IN 1 84 CV S 25 PH 0 AR MG MA CY TA BL LL ET C, DB A CV S PH AR MA CY #3 01 6 AL 00 05 06 37 30 00 KE Ac BU 37 -1 -0 5. 00 NT ti TE 88 4- 9- 00 01 UC ve RO 27 20 20 0 00 [place] L 05 17 17 83 MARIE 2 84 CV L S 2. PH 5 AR MG MA /3 CY ML LL C, SO LN DB A CV S PH AR MA CY #3 01 6 VE 00 04 05 18 28 00 KE Ac NT 17 -2 -2 .0 00 NT ti OL 30 9- 6- 00 00 UC ve IN 68 20 20 99 [place] 22 17 17 47 HF 0 81 CV A S 90 PH AR MC MA G CY IN NAILS LL LE C, R DB A CV S PH AR MA CY #3 01 6 AC 31 04 05 20 10 00 KE Ac YC 72 -1 -1 .0 00 NT ti LO 20 7- 2- 00 01 UC ve 77 20 20 02 KY R 70 17 17 18 40 1 25 CV 0 S MG PH AR TA MA BL CY ET LL C, DB A CV S PH AR MA CY #3 01 6 GE 24 03 04 5. 7 00 KE Ac NT 20 -3 -2 00 00 NT ti AM 80 1- 8- 0 01 UC ve IC 58 20 20 01 [place] IN 06 17 17 78 0 52 CV 0. S 3% PH AR EY MA E CY DR OP LL S C, DB A CV S PH AR MA CY #3 01 6 TR 50 03 04 30 30 00 KE Ac AZ 11 -3 -2 .0 00 NT ti OD 10 0- 8- 00 01 UC ve ON 43 20 20 01 [place] E 30 17 17 74 50 1 86 CV S MG PH AR TA MA BL CY ET LL C, DB A CV S PH AR MA CY #3 01 6 CI 13 03 04 30 30 00 KE Ac TA 66 -3 -2 .0 00 NT ti LO 80 0- 8- 00 01 UC ve NC 01 20 20 01 [place] AM 00 17 17 74 5 84 CV HB S R PH 20 AR MA MG CY TA LL BL C, ET DB A CV S PH AR MA CY #3 01 6 VE 00 03 04 18 29 00 KE Ac NT 17 -1 -1 .0 00 NT ti OL 30 9- 4- 00 00 UC ve IN 68 20 20 99 [place] 22 17 17 47 HF 0 81 CV A S 90 PH AR MC MA G CY IN NAILS LL LE C, R DB A CV S PH AR MA CY #3 01 6 CY 00 03 04 20 10 00 KE Ac CL 37 -1 -0 .0 00 NT ti OB 80 4- 7- 00 01 UC ve EN 75 20 20 01 KY ZA 11 17 17 27 NC 0 45 CV IN S E PH 10 AR MA MG CY TA LL BL C, ET DB A CV S PH AR MA CY #3 01 6 NA 65 03 04 28 14 00 KE Ac NC 16 -1 -0 .0 00 NT ti OX 20 4- 7- 00 01 UC ve EN 19 20 20 01 [place] 05 17 17 27 50 0 44 CV 0 S MG PH AR TA MA BL CY ET LL C, DB A CV S PH AR MA CY #3 01 6 BE 67 02 03 30 10 00 KE Ac NZ 87 -2 -2 .0 00 NT ti ON 70 8- 4- 00 01 UC ve AT 10 20 20 00 [place] AT 60 17 17 87 E 5 22 CV 20 S 0 PH MG AR MA CA CY PS UL LL E C, DB A CV S PH AR MA CY #3 01 6 AL 00 02 03 37 30 00 KE Ac BU 37 -2 -2 5. 00 NT ti TE 88 7- 4- 00 01 UC ve RO 27 20 20 0 00 KY L 05 17 17 83 MARIE 2 84 CV L S 2. PH 5 AR MG MA /3 CY ML LL C, SO LN DB A CV S PH AR MA CY #3 01 6 OS 47 02 03 10 5 00 KE Ac EL 78 -2 -2 .0 00 NT ti TA 10 7- 4- 00 01 UC ve NM 47 20 20 00 [place] 01 17 17 83 R 3 83 CV PH S OS PH AR 75 MA CY MG LL CA C, PS UL DB E A CV S PH AR MA CY #3 01 6 NC 00 02 03 10 5 00 KE Ac ED 14 -0 -0 .0 00 NT ti NI 39 4- 3- 00 01 UC ve SO 73 20 20 00 [place] NE 80 17 17 20 5 60 CV 20 S PH MG AR MA TA CY BL ET LL C, DB A CV S PH AR MA CY #3 01 6 BE 67 02 03 15 5 00 KE Ac NZ 87 -0 -0 .0 00 NT ti ON 70 4- 3 00 01 UC ve AT 10 20 20 00 KY AT 50 17 17 20 E 5 59 CV 10 S 0 PH MG AR MA CA CY PS UL LL E C, DB A CV S PH AR MA CY #3 01 6 AZ 59 02 03 6. 5 00 KE Ac IT 76 -0 -0 00 00 NT ti HR 23 4- 3- 0 01 UC ve OM 06 20 20 00 [place] YC 00 17 17 20 IN 1 58 CV S 25 PH 0 AR MG MA CY TA BL LL ET C, DB A CV S PH AR MA CY #3 01 6 AC 61 01 02 25 5 00 KE Ac YC 44 -3 -2 .0 00 NT ti LO 20 1- 4- 00 01 UC ve 11 20 20 00 KY R 10 17 17 07 20 1 52 CV 0 S MG PH AR CA MA PS CY UL E LL C, DB A CV S PH AR MA CY #3 01 6 CE 68 01 02 20 10 00 KE Ac PH 18 -2 -1 .0 00 NT ti AL 00 0- 7- 00 00 UC ve EX 12 20 20 99 [place] IN 20 17 17 81 2 13 CV 50 S 0 PH MG AR MA CA CY PS UL LL E C, DB A CV S PH AR MA CY #3 01 6 VE 00 01 02 18 30 00 KE Ac NT 17 -1 -0 .0 00 NT ti OL 30 0- 3- 00 00 UC ve IN 68 20 20 99 [place] 22 17 17 47 HF 0 81 CV A S 90 PH AR MC MA G CY IN NAILS LL LE C, R DB A CV S PH AR MA CY #3 01 6 LI 60 06 06 0 60 1 SO 37 MO Ac ND 43 -1 -1 .0 PE 59 OR ti AN 20 0- 0- 00 RS 19 E ve E 83 20 20 NA 1% 46 11 11 FA TH 0 NM AN SH LY L AM PO DR O UG MA 51 04 04 0 59 1 SO 37 WH Ac LA 67 -1 -1 .0 PE 09 EE ti TH 25 3- 3- 00 RS 00 LE ve IO 27 20 20 R N 70 11 11 FA KR 0. 4 NM IS 5% LY TI E LO DR L TI UG ON AZ 00 04 04 0 6. 5 WA 70 WH Ac IT 78 -0 -0 00 L- 73 EE ti HR 11 4- 4- 0 MA 37 LE ve OM 49 20 20 RT 3 R YC 66 11 11 KR IN 8 PH IS AR TI 25 MA E 0 CY L MG # TA 10 BL 04 ET 93 LI 60 01 01 0 60 7 WA 70 WH Ac ND 43 -0 -0 .0 L- 61 EE ti AN 20 3- 3- 00 MA 17 LE ve E 83 20 20 RT 7 R 1% 46 11 11 KR 0 PH IS SH AR TI AM MA E PO CY L O # 10 04 93 CE 68 11 11 0 28 7 WA 70 LO Ac PH 18 -2 -2 .0 L- 56 RE ti AL 00 4- 4- 00 MA 38 NZ ve EX 12 20 20 RT 8 O IN 20 10 10 VIC 1 PH SE 50 AR T 0 MA MG CY # CA PS 10 UL 04 E 93 NA 53 11 11 0 30 15 WA 70 WH Ac NC 74 -1 -1 .0 L- 55 EE ti OX 60 5- 5- 00 MA 03 LE ve EN 18 20 20 RT 9 R 90 10 10 KR 37 1 PH IS 5 AR TI MG MA E CY L TA # BL ET 10 04 93 PE 00 11 11 1 59 2 SO 35 YO Ac RM 47 -0 -1 .0 PE 68 UN ti ET 25 8- 3- 00 RS 56 G ve HR 24 20 20 JR IN 26 10 10 FA 7 NM CH 1% LY ES TE LO DR R TI UG R ON PE 00 11 11 1 59 2 SO 35 YO Ac RM 47 -0 -0 .0 PE 68 UN ti ET 25 8- 8- 00 RS 56 G ve HR 24 20 20 JR IN 26 10 10 FA 7 NM CH 1% LY ES TE LO DR R TI UG R ON 00 03 05 4 84 84 WA 70 LE Ac 43 -1 -2 .0 L- 34 WE ti 00 8- 1- 00 MA 44 LL ve 53 20 20 RT 6 EN 01 10 10 4 PH JR AR MA TH CY OM # L 10 04 93 AZ 00 01 02 00 6. 5 WA 70 WH Ac IT 78 -2 -1 00 L- 20 EE ti HR 11 5- 1- 0 MA 19 LE ve OM 49 20 20 RT 5 R YC 66 10 10 KR IN 8 PH IS AR TI 25 MA E 0 CY L MG #4 TA 93 BL ET 66 01 02 00 20 10 WA 70 WH Ac 99 -2 -1 .0 L- 20 EE ti 20 5- 1- 00 MA 19 LE ve 23 20 20 RT 6 R 56 10 10 KR 0 PH IS AR TI MA E CY L #4 93 CI 00 03 04 00 7. 7 SO 30 JU Ac NC 06 -3 -0 50 PE 97 DY ti OD 58 0- 9- 0 RS 96 ve EX 53 20 20 NA 30 09 09 FA TA OT 2 NM LI IC LY E E MARIE DR SP UG EN SI ON 59 03 04 00 20 10 SO 30 JU Ac 76 -3 -0 .0 PE 97 DY ti 22 0- 9- 00 RS 95 ve 18 20 20 NA 00 09 09 FA TA 1 NM LI LY E E DR KEN NC 60 03 03 00 12 5 SO 30 HU Ac OM 43 -1 -2 0. PE 86 NT ti ET 20 7- 6- 00 RS 30 ER ve NAILS 60 20 20 0 ZI 41 09 09 FA NA NE 6 NM NC -D LY Y M C SY RU UG P TA 00 03 03 00 10 5 SO 30 HU Ac NM 00 -1 -2 .0 PE 86 NT ti FL 40 7- 6- 00 RS 44 ER ve U 80 20 20 75 08 09 09 FA NA 5 NM NC MG LY Y C CA DR PS UG UL E 60 01 01 00 12 3 SO 30 HU Ac 25 -1 -3 0. PE 32 NT ti 80 3- 0- 00 RS 84 ER ve 23 20 20 0 91 09 09 FA NA 6 NM NC LY Y C DR UG NC 50 01 01 00 60 30 SO 30 HU Ac OP 11 -1 -3 .0 PE 32 NT ti RA 10 3- 0- 00 RS 85 ER ve NO 46 20 20 LO 70 09 09 FA NA L 1 NM NC 10 LY Y C MG DR UG TA BL ET AB 59 01 01 00 45 30 SO 30 HU Ac IL 14 -1 -3 .0 PE 32 NT ti IF 80 3- 0- 00 RS 87 ER ve Y 00 20 20 5 71 09 09 FA NA MG 3 NM NC LY Y TA C BL DR ET UG 17 06 06 00 15 15 SO 28 No Ac 31 -0 -1 .0 PE 58 t ti 45 5- 2- 00 RS 89 Av ve 85 20 20 ai 10 08 08 FA la 2 NM bl LY e DR UG AB 59 06 06 00 15 30 SO 28 No Ac IL 14 -0 -1 .0 PE 58 t ti IF 80 5- 2- 00 RS 88 Av ve Y 00 20 20 ai 5 71 08 08 FA la MG 3 NM bl LY e TA BL ET UG 63 01 03 00 20 10 SO 27 No Ac 30 -2 -2 .0 PE 41 t ti 40 8- 6- 00 RS 14 Av ve 75 20 20 ai 12 08 08 FA la 0 NM bl LY e DR UG 00 03 00 30 30 SO 27 No Ac 09 -2 -2 .0 PE 41 t ti 51 8- 6- 00 RS 15 Av ve 29 20 20 ai 00 08 08 FA la 6 NM bl LY e DR UG NA 00 01 03 00 17 30 SO 27 No Ac SO 08 -2 -2 .0 PE 41 t ti NE 51 8- 6- 00 RS 12 Av ve X 28 20 20 ai 50 80 08 08 FA la 1 NM bl MC LY e G NA DR SA UG L SP RA Y 17 01 03 00 30 30 SO 27 No Ac 31 -2 -2 .0 PE 34 t ti 45 1- 5- 00 RS 51 Av ve 85 20 20 ai 10 08 08 FA la 2 NM bl LY e DR UG AB 59 01 03 00 45 30 SO 27 No Ac IL 14 -2 -2 .0 PE 34 t ti IF 80 1- 5- 00 RS 53 Av ve Y 00 20 20 ai 5 71 08 08 FA la MG 3 NM bl LY e TA BL DR ET UG NC 50 01 03 00 60 30 SO 27 No Ac OP 11 -1 -2 .0 PE 33 t ti RA 10 8- 5- 00 RS 47 Av ve NO 46 20 20 ai LO 70 08 08 FA la L 1 NM bl [address] UG TA BL ET Immunization Name Date Rout CVX Reac Dose Comm Prov Is Faci e tion ent ider Refu lity Give sed n IIV3 11-21 141 HAMI No HAMI 6-20 [place] VACC 14 [place] INE SPLI T VIRU [place] S 0.5 ML DOSA GE IM USE Results Labs Lab Lab Date Result Refere Interp Status Commen Order Detail nces retati t Range on Urinalysis dipstick W Reflex Microscopic panel in Urine (08-23-2017 18:55) Amorpho 3+ NONE complet us 017 ed sedimen 18:55 t [Presen ce] in Urine sedimen t by Light microsc opy Bacteri 2+ O complet a 017 ed [Presen 18:55 ce] in Urine sedimen t by Light microsc opy Erythro 50-100 0 complet cytes 017 ed [Presen 18:55 ce] in Urine sedimen t by Light microsc opy Epithel 10-20 0#/hp complet ial 017 f - ed cells.s 18:55 5#/hp quamous f [Presen ce] in Urine sedimen t by Microsc opy high power field Leukocy 20-50 O complet anshu 017 wbc/hpf ed [#/volu 18:55 me] in Urine Urinalysis dipstick W Reflex Microscopic panel in Urine (08-23-2017 18:55) Appeara SL CLEAR complet nce of 017 CLOUDY ed Urine 18:55 Bilirub NEGATIV NEG complet in 017 E ed [Presen 18:55 ce] in Urine by Test strip Erythro 3+ NEG Abnorma complet cytes 017 l ed [Presen 18:55 ce] in Urine Color YELLOW YELLOW complet of 017 ed Urine 18:55 Ketones NEGATIV NEG complet 017 E ed [Presen 18:55 ce] in Urine by Automat ed test strip Mucus 2+ NEG Abnorma complet [Presen 017 l ed ce] in 18:55 Urine sedimen t by Light microsc opy Nitrite NEGATIV NEG complet 017 E ed [Presen 18:55 ce] in Urine by Test strip Urobili 0.2 NEG complet nogen 017 ed [Presen 18:55 ce] in Urine by Test strip CHLAMYDIA AND GONORRHEA TESTING (06-07-2017 13:00) Chlamyd NEGATIV complet ia 017 E ed trachom 13:00 atis rRNA [Presen ce] in Unspeci fied specime n by Probe & target amplifi cation method Neisser NEGATIV complet ia 017 E ed gonorrh 13:00 oeae rRNA [Presen ce] in Unspeci fied specime n by Probe & target amplifi cation method CHLAMYDIA AND GONORRHEA TESTING (06-07-2017 13:00) COLLECT CARYN complet OR 017 [place] ed 13:00 , RN ETHNICI WHITE, complet TY 017 NON-HIS ed 13:00 PANIC KIT complet EXPIRAT 017 017 ed ION 13:00 DATE SYMPTOM NO complet S 017 ed 13:00 REASON REVISIT complet FOR 017 /ANNUAL ed REQUEST 13:00 FAMILY PLANNIN G VISIT SPECIME URINE complet N 017 ed SOURCE 13:00 PREGNAN NO complet T 017 ed 13:00 CHART [id number] complet NUMBER 017 35 ed 13:00 Chlamyd Pending complet ia 017 ed trachom 13:00 atis rRNA [Presen ce] in Unspeci fied specime n by Probe & target amplifi cation method Neisser Pending complet ia 017 ed gonorrh 13:00 oeae rRNA [Presen ce] in Unspeci fied specime n by Probe & target amplifi cation method Comp Metab 1998 Pnl SerPl (02-08-2017 05:19) Sodium 138 132-146 complet Bld-sCn 017 mmol/L ed c 05:19 Creat 0.70 0.60-1. complet Bld-mCn 017 mg/dL 30 ed c 05:19 BUN 11 9-23 complet Bld-mCn 017 mg/dL ed c 05:19 Anion 7.0 3.0-11. complet Gap3 017 mmol/L 0 ed SerPl-s 05:19 Cnc BUN/Cre 15.7 7.0-25. complet at 017 0 ed SerPl 05:19 Albumin 1.4 1.5-2.5 complet /Glob 017 g/dL ed SerPl 05:19 Globuli 3.0 complet n Ur 017 gm/dL ed Elph-mC 05:19 nc GFR/BSA 107 >60 complet .pred 017 mL/min/ ed SerPl 05:19 1.73 MDRD-Ar VRat Bilirub 0.3 0.3-1.2 complet 017 mg/dL ed SerPl-m 05:19 Cnc ALP 70 U/L 25-100 complet SerPl-c 017 ed Cnc 05:19 AST 17 U/L 0-33 complet SerPl-c 017 ed Cnc 05:19 ALT 13 U/L 7-40 complet SerPl w 017 ed 05:19 P-5'-P- cCnc Albumin 4.30 3.20-4. complet 017 g/dL 80 ed SerPl-m 05:19 Cnc Prot 7.3 5.7-8.2 complet SerPl-m 017 g/dL ed Cnc 05:19 Calcium 9.5 8.7-10. complet 017 mg/dL 4 ed XXX-sCn 05:19 c CO2 23.0 20.0-31 complet SerPl-s 017 mmol/L .0 ed Cnc 05:19 Chlorid 108 99-109 complet e 017 mmol/L ed SerPl-s 05:19 Cnc Potassi 03-21-2 4.1 3.5-5.5 complet um 017 mmol/L ed Bld-sCn 05:19 c Glucose -21-2 160 70-100 complet 017 mg/dL ed Bld-mCn 05:19 c CBC W Diff pnl,unspecified Bld (02-08-2017 05:19) Imm 03-21-2 0.02 0.00-0. complet Granulo 017 10*3/mm 03 ed cytes # 05:19 3 Bld Basophi 03-21-2 0.01 0.00-0. complet ls # 017 10*3/mm 20 ed Bld 05:19 3 Auto Eosinop 03-21-2 0.00 0.10-0. complet hil # 017 10*3/mm 30 ed Bld 05:19 3 Auto Monocyt -21-2 0.43 0.00-1. complet es # 017 10*3/mm 00 ed Bld 05:19 3 Auto Lymphoc -21-2 1.19 0.60-4. complet ytes # 017 10*3/mm 80 ed Bld 05:19 3 Auto Neutrop -21-2 7.52 1.50-8. complet hils # 017 10*3/mm 30 ed Bld 05:19 3 Auto Imm 03-21-2 0.2 % 0.0-0.6 complet Granulo 017 ed cytes 05:19 NFr Bld Basophi -21-2 0.1 % 0.0-1.0 complet ls NFr 017 ed Bld 05:19 Auto Eosinop 03-21-2 0.0 % 0.0-3.0 complet hil NFr 017 ed Bld 05:19 Auto Monocyt 03-21-2 4.7 % 0.0-12. complet es NFr 017 0 ed Bld 05:19 Auto Lymphoc 03-21-2 13.0 % 24.0-44 complet ytes 017 .0 ed NFr Bld 05:19 Auto Neutrop 03-21-2 82.0 % 41.0-71 complet hils 017 .0 ed NFr Bld 05:19 Auto Platele 03-21-2 299 150-450 complet t # Bld 017 10*3/mm ed Auto 05:19 3 PMV Bld 03-21-2 9.2 fL 6.0-12. complet Auto 017 0 ed 05:19 RDW RBC 02-08-2 47.3 fl 37.0-54 complet Auto 017 .0 ed 05:19 RDW RBC -21-2 15.1 % 11.3-14 complet 017 .5 ed Auto-Rt 05:19 o MCHC 02-08-2 31.5 32.0-36 complet RBC 017 g/dL .0 ed Auto-mC 05:19 nc MCH RBC 02-08-2 26.9 pg 27.0-31 complet Qn 017 .0 ed Auto 05:19 MCV RBC 02-08-2 85.2 fL 80.0-99 complet Auto 017 .0 ed 05:19 Hct VFr 02-08-2 36.8 % 34.5-44 complet Bld 017 .0 ed Auto 05:19 Hgb 02-08-2 11.6 11.5-15 complet Bld-mCn 017 g/dL .5 ed c 05:19 RBC # 02-08-2 4.32 3.89-5. complet Bld 017 10*6/mm 14 ed Auto 05:19 3 WBC 02-08-2 9.17 4.50-13 complet nRBC 017 10*3/mm .50 ed cor # 05:19 3 Bld COHgb Bld-mCnc (02-07-2017 17:36) COHgb 20-2 15.3 % 0-1.5 complet MFr 017 ed BldA 17:36 Treponema pallidum IgG Ab [Presence] in Serum by Immunoassay (12-16-2016 16:00) Trepone NON-SHERON complet ma 017 CTIVE ed pallidu 16:00 m IgG Ab [Presen ce] in Serum by Immunoa ssay CHLAMYDIA AND GONORRHEA TESTING (12-16-2016 16:00) Chlamyd NEGATIV complet ia 017 E ed trachom 16:00 atis rRNA [Presen ce] in Unspeci fied specime n by Probe & target amplifi cation method Neisser NEGATIV complet ia 017 E ed gonorrh 16:00 oeae rRNA [Presen ce] in Unspeci fied specime n by Probe & target amplifi cation method CHLAMYDIA AND GONORRHEA TESTING (12-16-2016 16:00) COLLECT S.JOSE complet OR 017 , 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 inspector 16:00 ETHNICI WHITE, complet TY 017 NON-HIS ed 16:00 PANIC KIT complet EXPIRAT 017 ed ION 16:00 DATE SYMPTOM NO complet S 017 ed 16:00 REASON VOLUNTE complet FOR 017 ER/MEDI ed REQUEST 16:00 SUE PROBLEM SPECIME URINE complet N 017 ed SOURCE 16:00 PREGNAN NO complet T 017 ed 16:00 CHART N/A complet NUMBER 017 ed 16:00 Chlamyd Pending complet ia 017 ed trachom 16:00 atis rRNA [Presen ce] in Unspeci fied specime n by Probe & target amplifi cation method Neisser Pending complet ia 017 ed gonorrh 16:00 oeae rRNA [Presen ce] in Unspeci fied specime n by Probe & target amplifi cation method Treponema pallidum IgG Ab [Presence] in Serum by Immunoassay (12-16-2016 16:00) COLLECT S.JOSE complet OR 017 , 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 inspector 16:00 ETHNICI WHITE complet TY 017 NON-HIS ed 16:00 PANIC PURPOSE ROUTINE complet OF 017 ed EXAM 16:00 SPECIME BLOOD complet N 017 ed SOURCE 16:00 CHART N/A complet NUMBER 017 ed 16:00 Trepone Pending complet ma 017 ed pallidu 16:00 m IgG Ab [Presen ce] in Serum by Immunoa ssay CHLAMYDIA AND GONORRHEA TESTING (06-09-2016 10:30) [place] NEGATIV complet ia 016 E ed trachom 10:30 atis rRNA [Presen ce] in Unspeci fied specime n by Probe & target amplifi cation method Neisser NEGATIV complet ia 016 E ed gonorrh 10:30 oeae rRNA [Presen ce] in Unspeci fied specime n by Probe & target amplifi cation method CHLAMYDIA AND GONORRHEA TESTING (06-09-2016 10:30) COLLECT PT/J complet OR 016 WEINER ed 10:30 FIELD REP ETHNICI 06-09-2 WHITE, complet TY 016 NON-HIS ed 10:30 PANIC KIT -20-2 12-21-19 complet EXPIRAT 016 17 ed ION 10:30 DATE SYMPTOM NO complet S 016 ed 10:30 REASON REVISIT complet FOR 016 /ANNUAL ed REQUEST 10:30 FAMILY PLANNIN G VISIT SPECIME URINE complet N 016 ed SOURCE 10:30 PREGNAN NO complet T 016 ed 10:30 CHART NA complet NUMBER 016 ed 10:30 Chlamyd Pending complet ia 016 ed trachom 10:30 atis rRNA [Presen ce] in Unspeci fied specime n by Probe & target amplifi cation method Neisser Pending complet ia 016 ed gonorrh 10:30 oeae rRNA [Presen ce] in Unspeci fied specime n by Probe & target amplifi cation method CHLAMYDIA AND GONORRHEA TESTING (06-10-2015 14:35) [place] NEGATIV complet ia 015 E ed trachom 14:35 atis rRNA [Presen ce] in Unspeci fied specime n by Probe & target amplifi cation method Neisser NEGATIV complet ia 015 E ed gonorrh 14:35 oeae rRNA [Presen ce] in Unspeci fied specime n by Probe & target amplifi cation method CHLAMYDIA AND GONORRHEA TESTING (06-10-2015 14:35) COLLECT PT/M. complet OR 015 MILLS ed 14:35 FIELD REP ETHNICI 06-10-2 WHITE, complet TY 015 NON-HIS ed 14:35 PANIC KIT --2 complet EXPIRAT 015 5 ed ION 14:35 DATE SYMPTOM NO complet S 015 ed 14:35 REASON INITIAL complet FOR 015 FAMILY ed REQUEST 14:35 PLANNIN G VISIT SPECIME URINE complet N 015 ed SOURCE 14:35 PREGNAN 06-10- NO complet T 015 ed 14:35 CHART NA complet NUMBER 015 ed 14:35 Chlamyd Pending complet ia 015 ed trachom 14:35 atis rRNA [Presen ce] in Unspeci fied specime n by Probe & target amplifi cation method Neisser Pending complet ia 015 ed gonorrh 14:35 oeae rRNA [Presen ce] in Unspeci fied specime n by Probe & target amplifi cation method Procedures Procedure DOS Code Location Performer Comment IAADIADOO 55602 VELIA BARCENAS [facility] [place] [address] TENRIISM TENRIISM ABDOMINAL 7 HEALTH HEALTH REAL [facility] TIME W/IMAGE DOCUMENTA TION IADNA 07022 [facility] HL[facility] DEPT GONORRHOE KIERA KIERA AE AMPLIFIED PROBE TQ INJECTION J1050 [facility] MED[facility]XYPR HLTH DEPT HLTH DEPT OGESTERON KIERA KIERA E ACETATE 1 MG IADNA 12239 [facility] CHLAM[facility]DIA [facility] DEPT TRACHOMAT KIERA KIERA IS AMPLIFIED PROBE TQ URINE 87909 [facility] TEST HLTH DEPT HLTH DEPT VISUAL KIERA KIERA COLOR CMPRSN METHS CYANOCOBA 85131 [facility] TENRIISM [address] HEALTH VITAMIN [facility] B-12 HEMOGLOBI 73312 TENRIISM TENRIISM [address] HEALTH GLYCOSYLA [facility] DOROTHY A1C GENERAL [address] [place] [address] HEALTH HEALTH PANEL [facility] LIPID 41546 TENRIISM TENRIISM PANEL [address] [place] [address] CULTURE 02549 [facility] BACTERIAL 7 [facility] HOLDINGS HOLDINGS QUANTTATI VE COLONY COUNT URINE RADEX 94071 [facility] ABDOMEN [address] [place] [address] ANTEROPOS TERIOR VIEW INJECTION J1050 [facility] MED[facility]XYPR HLTH DEPT HLTH DEPT OGESTERON KIERA KIERA E ACETATE 1 MG INITIAL 90507 TENRIISM ADRIEL SEGOVIA 7 HEALTH ON MEDICAL CARE/DAY GROUP 70 MINUTES CHIROPRAC 87866 NONA NONA TIC 7 MANIPULAT [place] SPINAL 1-2 REGIONS AMB A0427 BRUNO BRUNO SERVICE 7 FAYETTE FAYETTE ALS [facility]ERGENCY [place] [address] [facility] [place] HEAD/BRAI 7 RADIOLOGY N W/O ASSOC CONTRAST MATERIAL GROUND A0425 BRUNO BRUNO MILEAGE 7 FAYETTE FAYETTE PER URBAN URBAN STATUTE COGOVT COGOVT MILE APPL 68899 NONA NONA MODALITY 7 1/> AREAS ULTRASOUN D EA 15 MIN [facility] G0378 TENRIISM T[facility]RIISM [facility] 7 [facility] HEALTH ON [facility] SERVICE PER HOUR APPL 77415 NONA NONA MODALITY 7 1/> AREAS ELEC STIMJ UNATTENDE D APPL 10721 NONA NONA MODALITY 7 1/> AREAS ELEC STIMJ UNATTENDE D APPL 32832 NONA NONA MODALITY 7 1/> AREAS ULTRASOUN D EA 15 MIN CHIROPRAC 77205 NONA NONA TIC 7 [place]IP[place]AT [place] SPINAL 1-2 REGIONS CHIROPRAC 44123 NONA NONA TIC 7 MANIPULAT [place] SPINAL 1-2 REGIONS APPL 37455 NONA NONA MODALITY 7 1/> AREAS ULTRASOUN D EA 15 MIN APPL 93241 NONA NONA MODALITY 7 1/> AREAS ELEC STIMJ UNATTENDE D IAADIADOO 56819 VELIA BARNETT [address] [place] [address] MIMI LE STREPTOCO 7 [facility] CCUS INC INC GROUP A IAADI 34708 MIMI LE INFLUENZA 7 [facility] B VIRUS INC INC IAADI 48616 MIMI LE INFFLUENZ 7 [facility] A A VIRUS INC INC RADIOLOGI 07710 [facility] C EXAM 7 MEDICAL CHEST 2 IMAGING VIEWS ASS FRONTAL&L ATERAL CUL BACT 74887 MIMI LE XCPT 7 [facility]OS[facility]OS[facility] URINE INC INC BLOOD/STO OL AEROBIC ISOL IADNA 38423 VANNESSACO VANNESSACO CHLAMYDIA 7 [facility] DISTRICT [facility] DEPT [facility] DEPT TRACHOMAT KIERA KIERA IS AMPLIFIED PROBE TQ INJECTION J1050 [facility] MED[facility]XYPR [facility] DEPT [facility] DEPT OGESTERON KIERA KIERA E ACETATE 1 MG IADNA 94823 BANDAR PORTILLO NEISSERIA 7 [facility] DEPT [facility] DEPT GONORRHOE KIERA KIERA AE AMPLIFIED PROBE TQ ANTIBODY 69332 VANNESSANY VANNESSACO TREPONEMA 7 [facility] PALLIDUM [facility] DEPT [facility] DEPT KIERA KIERA IAADIADOO 16110 VELIA LEZAMA 7 [facility] CCUS GROUP A RADIOLOGI 12037 [facility] C [address] [place] [address] ON KNEE 3 VIEWS RADEX 72519 [facility] RIBS [address] [place] [address] L 2 VIEWS RADEX 63070 [facility] ELBOW [address] [place] [address] MINIMUM 3 VIEWS INJECTION J1050 [facility] 6 [facility] MEDROXYPR [facility] DEPT [facility] DEPT OGESTERON KIREA KIERA E ACETATE 1 MG INJECTION J1050 [facility] 6 [facility] MEDROXYPR [facility] DEPT [facility] DEPT OGESTERON KIERA KIERA E ACETATE 1 MG CONTRACEP A4267 VANNESSANY VANNESSACO TIVE 6 [facility] SUPPLY [facility] DEPT [facility] DEPT CONDOM KIERA KIERA MALE EACH THERAPEUT 33801 VELIA SCHMITZ- IC [facility] PROPHYLAC TIC/DX INJECTION SUBQ/IM INJECTION J1100 VELIA ZARAGOZALER- 6 [facility] DEXAMETHO SONE SODIUM PHOSPHATE 1 MG THER 63679 [facility] PROPH/DX 6 [facility] HOSPITAL PUSH SINGLE/1S T SBST/DRUG THERAPEUT 46469 [facility] IC [address] [place] [address] IV PUSH EACH NEW DRUG INJ J2930 [facility] METHYLPRD [address] [place] [address] SODIUM SUCCNAT TO 125 MG IADNA 49071 [facility] 6 [facility] HLTH DEPT HLTH DEPT GONORRHOE KIERA KIERA AE AMPLIFIED PROBE TQ CONTRACEP A4267 [facility] TIVE 6 [facility] SUPPLY HL DEPT HLTH DEPT CONDOM KIERA KIERA MALE EACH IADNA 74085 [facility] CHLAMYDIA 6 [facility] DEPT TH DEPT TRACHOMAT KIERA KIERA IS AMPLIFIED PROBE TQ INJECTION J[address] [facility] PER 15 MG RADEX 97084 [facility] NASAL [address] [place] [address] COMPLETE MINIMUM 3 VIEWS THERAPEUT 64991 [facility] IC [address] [place] [address] TIC/DX INJECTION SUBQ/IM BLOOD 36885 [facility] COUNT [address] [place] [address] AUTO&AUTO DIFRNTL WBC COLLECTIO 34199 [facility] N VENOUS [address] [place] [address] VENIPUNCT URE COMPREHEN 24321 [facility] SIVE [address] [place] [address] PANEL IAADIADOO 47596 [facility]N [facility] CCUS GROUP A CYANOCOBA 07690 [facility] ALFREDO 6 [facility] ELIZ[facility] VITAMIN HOLDINGS [place] B-12 [place] [address] [facility] F[facility] FOLIC 6 [facility] ELIZAB[facility] ACID HOLDINGS HOLDINGS SERUM BASIC 90452 [facility] METABOLIC 6 [facility] ELIZABETH PANEL HOLDINGS HOLDINGS CALCIUM TOTAL ANES 46899 [facility] N[facility] JEAN [facility]PPER GI 6 ANESTHESI ENDOSCOPY A GROUP PROXIMAL PS TO DUODENUM INJECTION J1050 [facility] 6 [facility] MEDROXYPR TH DEPT HLTH DEPT OGESTERON KIERA KIERA E ACETATE 1 MG HPYLORI 27308 [facility] BREATH 6 [facility] ELIZ[facility] ANAL HOLDINGS HOLDINGS UREASE ACT NON-RADAC T ISTOPE GENERAL 38543 [facility] HEALTH 6 [facility] EL[facility] [place] [address] [facility] AMYLASE 6 [facility] [address] [facility] FREE 6 ELIZABETH ELIZABETH THYROXINE HOLDINGS HOLDINGS URINE 70817 VELIA VELIA 6 CLINIC CLINIC TEST [place] [address] [facility] FOLIC 6 [facility] ELIZABETH [place] [address] LAB F[facility] LIPASE 6 [facility] ELIZ[facility] HOLDINGS HOLDINGS CYANOCOBA 25478 [facility] ALFREDO 6 [facility] ELIZABETH VITAMIN HOLDINGS HOLDINGS B-12 IAADIADOO 29347 HATTIE RESENDIZ 5 [facility] STREPT[facility] URGENT CCUS TREAT GROUP A CONTRACEP A4267 [facility] TIVE 5 [facility] DISTRICT SUPPLY HLTH DEPT HLTH DEPT CONDOM KIERA KIERA MALE EACH INJECTION J1050 [facility] 5 [facility] DISTRICT MEDROXYPR [facility] DEPT TH DEPT OGESTERON KIERA KIERA E ACETATE 1 MG LARYNGOSC 34332 EAR, NOSE SHASHY OPY 5 AND MIRANDA FLEXIBLE THROAT DIAGNOSTI SPECIAL C IAADIADOO 89884 HATTIE RESENDIZ 5 [facility] [place] [address] [facility] [place] CORBIN JAM ABDOMEN & 5 RADIOLOGY PELVIS W/O CONTRAST MATERIAL URINE 52770 [facility] TEST TH DEPT HLTH DEPT VISUAL KIERA KIERA COLOR CMPRSN METHS CONTRACEP A4267 [facility] TIVE 5 [facility] SUPPLY HLTH DEPT HLTH DEPT CONDOM KIERA KIERA MALE EACH INJECTION J1050 [facility] MEDROXYPR HLTH DEPT HLTH DEPT OGESTERON KIERA KIERA E ACETATE 1 MG IADNA 93169 [facility] CHLAM[facility]DIA [facility] HLTH DEPT HLTH DEPT TRACHOMAT KIERA KIERA IS AMPLIFIED PROBE TQ IADNA 56490 [facility] NEISS[facility]IA [facility] HLTH DEPT HLTH DEPT GONORRHOE KIERA KIERA AE AMPLIFIED PROBE TQ RADEX 06171 MIMI MIMI ANKLE 5 [facility] COMPLETE INC INC MINIMUM 3 VIEWS CRTCHS E0114 [facility]VANCED ADVANCED UNDARM 5 TECHNOLOG TECHNOLOG OTH THAN IES INC IES INC WOOD PAIR PAD TIP&HNDGR IP THER 44846 KASI VILLASEÑOR PROPH/DX 5 [facility] PUSH SINGLE/1S T SBST/DRUG INJECTION J2405 KASI [place] 5 [facility] ON HCL PER 1 [place] [address] KASI [place] AMYLASE [address] [place] [address] INJECTION J1885 KASI [place] [address] [place] [address] KETOROLAC [facility] TROMETHAM INE PER 15 MG CULTURE 85687 KASI VILLASEÑOR BACTERIAL [address] [place] [address] QUANTTATI VE COLONY COUNT URINE URINE 61803 KASI VILLASEÑOR [address] [place] [address] [place] [address] [facility] [place] GAUTAM ABDOMEN & 5 RADIOLOGY PELVIS W/O CONTRAST MATERIAL COLLECTIO 23840 KASI VILLASEÑOR N VENOUS [address] [place] [address] VENIPUNCT URE THERAPEUT 30866 KASI VILLASEÑOR IC [address] [place] [address] IV PUSH EACH NEW DRUG URNLS DIP 88296 KASI VILLASEÑOR [address] [place] [address] [facility] HOSPITAL LET REAGENT AUTO MICROSCOP Y COMPREHEN 30764 KASI VILLASEÑOR SIVE [address] [place] [address] HOSPITAL PANEL BLOOD 33993 KASI [place] COUNT [address] [place] [address] AUTO&AUTO DIFRNTL WBC CT ANGIO 10443 [facility] [place] CRYSTAL ABD&PLVIS 5 RADIOLOGY JOSE CNTRST MTRL W/WO CNTRST IMG RADIOLOGI 50109 [facility] [place] CRY[place] C 5 RADIOLOGY JOSE EXAMINATI ON PELVIS 1/[address] LUMBAR 06799 [facility] [place] GAUTAM SPINE 5 RADIOLOGY W/O CONTRAST MATERIAL AMB A0427 HATTIE KUHN SERVICE [address] [place] [address] AMBULANCE AMBULANCE EMERGENCY SE [place] [address] [facility] [place] HAJIBRAHI ANGIOGRAP 5 RADIOLOGY M DHAVAL HY CHEST W/[place] [address] [facility] [place] CORBIN JAM CERVICAL 5 RADIOLOGY SPINE W/O CONTRAST MATERIAL RADIOLOGI 43995 [place] [place] ROJAS C 5 RADIOLOGY JOSE EXAMINATI ON CHEST SINGLE VIEW FRONTAL GROUND A0425 HATTIE KUHN [address] PER AM[place]ULANCE [place] [address] MATILDE GALLEGOINEKE HEAD/BRAI 5 MEDICAL NANI N W/[place] [address] MATILDE BEINEKE CERVICAL 5 MEDICAL NANI SPINE [place] [address] [facility] TRANSVAGI [address] [place] [address] [place] [address] [facility] [facility] LIPASE [address] [place] [address] [place] [address] [facility] AMYL[facility] [address] [place] [address] URINE 66942 [facility] [address] [place] [address] [place] [address] [facility] ABDOMEN & [address] [place] [address] PELVIS [facility] W/O CONTRAST MATERIAL BLOOD 58742 [facility] COUNT [address] [place] [address] AUTO&AUTO DIFRNTL WBC COMPREHEN 54889 [facility] SIVE [address] [place] [address] PANEL URNLS DIP 14476 [place] [facility] [address] [place] [address] [facility] HOSPITAL LET REAGENT AUTO MICROSCOP Y COLLECTIO 45328 [facility] [facility] N VENOUS [address] [place] [address] VENIPUNCT URE PRESSURIZ 61887 INGE INGE ED/NONPRE 5 CHAD BONILLA SSURIZED INHALATIO N TREATMENT BRNCDILAT 65755 INGE INGE RSPSE 5 CHAD BONILLA SPMTRY PRE&POST- BRNCDILAT ADMN NITRIC 98936 INGE INGE OXIDE 5 CHAD BONILLA GAS DETERMINA TION PREPJ& 94334 INGE INGE ALLERGEN 4 CHAD CHAD IMMUNOTHE RAPY 1/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 ANTIGEN INITIAL 07134 RACHEL RAMOS OBSERVATI 4 SOY SOY ON CARE/DAY 50 MINUTES RADIOLOGI 07761 MIMI MIMI Alex EXAM 4 [facility]OS[facility] CHEST 2 INC INC VIEWS FRONTAL&L ATERAL BILIRUBIN 89112 [facility] TOTAL 4 [facility] EL[facility] HOLDINGS HOLDINGS CALCIUM 59810 [facility] TOTAL 4 [facility] EL[facility] HOLDINGS HOLDINGS TRANSFERA 10639 [facility] F[facility] SE 4 ELIZABETH ELIZABETH ASPARTATE [place] [address] [facility] F[facility] UREA 4 [facility]ABETH ELIZABETH NITROGEN HOLDINGS [place] [address] LAB F[facility] PHOSPHATA 4 ELIZABETH ELIZABETH SE HOLDINGS HOLDINGS ALKALINE POTASSIUM 83197 [facility] SERUM 4 ELIZABETH ELIZABETH PLASMA/WH HOLDINGS HOLDINGS OLE BLOOD CHLORIDE 73755 [facility] BLD 4 [facility] EL[facility] HOLDINGS HOLDINGS CREATININ 65939 [facility] E BLOOD 4 [facility] ELIZAB[facility] HOLDINGS HOLDINGS ALBUMIN 04016 [facility] SERUM 4 ELIZABETH ELIZABETH PLASMA/WH HOLDINGS HOLDINGS OLE BLOOD GLUCOSE 23912 [facility] QUANTITAT 4 ELIZABETH ELIZABETH MORENITA BLOOD HOLDINGS HOLDINGS XCPT REAGENT STRIP PROTEIN 10017 [facility] XCPT 4 ELIZABETH ELIZABETH REFRACTOM HOLDINGS HOLDINGS ETRY SERUM PLASMA/WH L BLD SODIUM 74488 [facility] SERUM 4 ELIZABETH ELIZABETH PLASMA OR HOLDINGS HOLDINGS WHOLE BLOOD BLOOD 03140 [facility] COUNT 4 ELIZABETH ELIZABETH COMPLETE HOLDINGS HOLDINGS AUTO&AUTO DIFRNTL WBC COLLECTIO 66708 VELIA Jiménez VENOUS 4 CLINIC BLOOD VENIPUNCT URE IAADIADOO 93338 MEANS BUTROS 4 ADULT MARISEL STREPT[facility] PRIMARY CCUS CARE CLI GROUP A INJECTION J1040 INTEGRITY RICHARDS, 4 JR. JAM METHYLPRE ORTHOPAED DNISOLONE ICS SPORT ACETATE 80 MG ARTHROCEN 15630 INTEGRITY RICHARDS, WHIT 4 JR. JAM ASPIR&/IN ORTHOPAED J MAJOR ICS SPORT JT/BURSA W/O US MRI ANY 43681 [facility] [place] ROJAS JT LOWER 4 RADIOLOGY JOSE EXTREM W/O CONTRAST MATRL RADEX 00611 MATILDE BEINEKE SHOULDER 4 MEDICAL NANI COMPLETE IMAGING MINIMUM 2 ASS VIEWS SLINGS A4565 [facility] INC. BREG INC. 4 DEMO&/KERWIN 98455 VELIA SCHMITZ- L OF PT 4 [facility] UTILIZ AERSL GEN/NEB/I NHLR/IP THERAPEUT 58818 VELIA SCHMITZ- IC 4 [facility] PROPHYLAC TIC/DX INJECTION SUBQ/IM INJECTION J1030 VELIA SCHMITZ- 4 [facility] METHYLPRE DNISOLONE ACETATE 40 MG ALBUTEROL J7609 VELIA SCHMITZ- INHAL CP 4 [facility] PROD THRU DME UNIT DOSE 1 MG IPRATROPI J7644 VELIA SCHMITZ- UM 4 [facility] BROMIDE INHAL NON-CP U DOSE PER MG INJECTION J0696 VELIA SCHMITZ- 4 [facility] CEFTRIAXO NE SODIUM PER 250 MG PRESSURIZ 73010 VELIA SCHMITZ- ED/NONPRE 4 [facility] SSURIZED INHALATIO N TREATMENT MANUAL 06828 SCHULTE CHR SCHULTE CHR THERAPY 4 TQS 1/> REGIONS EACH 15 MINUTES THERAPEUT 15883 SCHULTE CHR SCHULTE CHR IC PX 1/> 4 AREAS EACH 15 MIN EXERCISES THERAPEUT 08881 SCHULTE CHR SCHULTE CHR IC PX 1/> 4 AREAS EACH 15 MIN EXERCISES MANUAL 04475 SCHULTE CHR SCHULTE CHR THERAPY 4 TQS 1/> REGIONS EACH 15 MINUTES MANUAL 45863 SCHULTE CHR SCHULTE CHR THERAPY 4 TQS 1/> REGIONS EACH 15 MINUTES THERAPEUT 31738 SCHULTE CHR SCHULTE CHR IC PX 1/> 4 AREAS EACH 15 MIN EXERCISES THERAPEUT 35246 SCHULTE CHR SCHULTE CHR IC PX 1/> 4 AREAS EACH 15 MIN EXERCISES MANUAL 33595 SCHULTE CHR SCHULTE CHR THERAPY 4 TQS 1/> REGIONS EACH 15 MINUTES MANUAL 76251 SCHULTE CHR SCHULTE CHR THERAPY 4 TQS 1/> REGIONS EACH 15 MINUTES THERAPEUT 49456 SCHULTE CHR SCHULTE CHR IC PX 1/> 4 AREAS EACH 15 MIN EXERCISES MANUAL 48779 SCHULTE CHR SCHULTE CHR THERAPY 4 TQS 1/> REGIONS EACH 15 MINUTES THERAPEUT 75492 SCHULTE CHR SCHULTE CHR IC PX 1/> 4 AREAS EACH 15 MIN EXERCISES PHYSICAL 82543 SCHULTE CHR SCHULTE CHR THERAPY 4 EVALUATIO N RADIOLOGI 32993 MOOKIE VARGASA C 4 SHANNON SHANNON EXAMINATI ON KNEE 1/2 VIEWS RADEX 95814 SAMA SAMA ANKLE 4 SHANNON SHANNON COMPLETE MINIMUM 3 VIEWS ANKLE L1902 [employer] [facility] ORTH 4 BRACING BR[employer]ING ANK[employer] INC. INC. GAUNT/SIM PREFAB OFF-THE-S HELF COMPRE 29770 [facility] MAGANA SET AUDIOMETR 4 PHYSICIAN Y PRACTICE THRESHOLD L EVAL SP RECOGNIJ TYMPANOME 15105 [facility] MAGANA SET TRY 4 PHYSICIAN PRACTICE L CUL BACT 96655 [facility] b-datum, [facility], XCPT 4 TELE RN TELE RN URINE HATTIE HATTIE BLOOD/STO [place] [address] [facility], [facility], SHIGA-LIK 4 TELE RN TELE RN E TOXIN HATTIE HATTIE CO HOS CO HOS CUL BACT 47526 [facility] INC, STOOL 4 TELE RN TELE RN AEROBIC HATTIE HATTIE ISOL CO HOS CO HOS SALMONELL A&SHIGELL CUL BACT 17981 [facility] INC, STOOL 4 TELE RN TELE RN AEROBIC HATTIE HATTIE ADDL CO HOS CO HOS PATHOGENS &ID EA SMR PRIM 57725 [facility] INC, SRC CPLX 4 TELE RN TELE RN SPEC HATTIE HATTIE STAIN CO HOS CO HOS OVA&MARVA ITS BLOOD 66241 [facility] INC, OCCULT 4 TELE RN TELE RN PEROXIDAS HATTIE HATTIE E ACTV CO HOS CO HOS QUAL FECES [address] [facility] b-datum, [facility] b-datum, COUNT 4 TELE RN TELE RN COMPLETE HATTIE HATTIE AUTO&AUTO CO HOS CO HOS DIFRNTL WBC COMPREHEN 77434 [facility] b-datum, [employer], SIVE 4 TELE RN TELE RN METABOLIC HATTIE HATTIE PANEL CO HOS CO HOS LEUKOCYTE 87135 [facility], [employer] (formerly [employer]), ASSMT 4 TELE RN TELE RN FECAL HATTIE HATTIE QUAL/SEMI CO HOS CO HOS QUANTITAT MORENITA OVA&MARVA [address]7728 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 b-datum, [employer] (formerly [employer]), PROPH/DX 4 TELE RN TELE RN NJX IV HATTIE HATTIE PUSH CO HOS CO HOS SINGLE/1S T SBST/DRUG RADIOLOGI 04547 WAI CARRENO C EXAM 4 ANIBAL ANIBAL CHEST 2 VIEWS FRONTAL&L ATERAL BASIC 54267 [facility] b-datum, [employer], METABOLIC 4 TELE RN TELE RN PANEL HATTIE HATTIE CALCIUM CO HOS CO HOS TOTAL PRESSURIZ 16989 [facility] b-datum, [employer] (formerly [employer]), ED/NONPRE 4 TELE RN TELE RN SSURIZED HATTEI HATTIE INHALAT[place] [address] [facility] b-datum, [employer], INFUSION 4 TELE RN TELE RN THERAPY/P HATTIE HATTIE ROPHYLAXI CO HOS CO HOS S /DX 1ST TO [address] [facility] b-datum, [employer] (formerly [employer]), COUNT 4 TELE RN TELE RN COMPLETE HATTIE HATTIE AUTO&AUTO CO HOS CO HOS DIFRNTL WBC IIV3 97099 [facility] VACCINE 4 [place] SPLIT VIRUS 0.5 ML DOSAGE IM USE PROF SVCS 93555 INGE INGE ALLG 4 CHAD CHAD IMMNTX X W/PRV ALLGIC XTRCS NJXS PREPJ& 94661 INGE INGE ALLERGEN 4 CHAD CHAD IMMUNOTHE RAPY 1/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 ANTIGEN SPMTRY 53040 INGE INGE W/VC 3 CHAD CHAD EXPIRATOR Y RADHA W/WO MXML VOL VNTJ INTRACUTA 44976 INGE INGE NEOUS 3 CHAD CHAD TESTS W/ALLERGE KIERA EXTRACTS PERCUTANE 63367 INGE INGE OUS TESTS 3 CHAD CHAD W/ALLERGE KIERA EXTRACTS URNLS DIP 19078 [facility] 3 [place] STICK/TAB LET RGNT AUTO W/O MICROSCOP Y RADEX 57165 [facility] [employer], [facility] [employer], ANKLE 3 TELE RN TELE RN COMPLETE HATTIE HATTIE MINIMUM 3 CO HOS CO HOS VIEWS RADEX 80124 [employer], [employer], FOOT 3 TELE RN TELE RN COMPLETE HATTIE HATTIE MINIMUM 3 CO HOS CO HOS VIEWS OPHTH 28474 [facility] MEDICAL 3 GRE GRE XM&EVAL COMPRE NEW PT 1/> VST SPMTRY 06032 INGE INGE W/VC 3 CHAD CHAD EXPIRATOR Y RADHA W/WO MXML VOL VNTJ DETERMINA 05708 [facility] TION 3 GRE GRE REFRACTIV E STATE RADEX 59463 [employer], [employer], FOOT 3 TELE RN TELE RN COMPLETE HATTIE HATTIE MINIMUM 3 CO HOS CO HOS VIEWS SPACR A4627 MT MED MT MED BAG/RESRV 3 EQUIPMENT EQUIPMENT OR W/WO INC INC MASK W/METRD DOSE INHAL BRNCDILAT 40893 INGE INGE RSPSE 3 CHAD CHAD SPMTRY PRE&POST- BRNCDILAT ADMN ANES 81936 SIENNA ANT SIENNA ANT INTRAPERI 3 TONEAL UPPER ABDOMEN W/LAPS NOS PRESSURIZ 06717 KASI VILLASEÑOR ED/NONPRE 3 [facility] INHALATIO N TREATMENT LEVEL III 38688 TANOUS, TANOUS, SURG 3 JR EDW JR EDW PATHOLOGY GROSS&JANA ROSCOPIC EXAM LAPAROSCO 54093 MAKAYLA BENAVIDES JR PY SURG 3 KASSANDRA KASSANDRA CHOLECYST ECTOMY URINE 90338 [facility] [facility] 3 [facility] VISUAL COLOR CMPRSN METHS COLLECTIO 90516 KASI VILLASEÑOR N VENOUS 3 [facility] VENIP[facility] URE BLOOD 63106 KASI VILLASEÑOR COUNT 3 [facility] AUTO&AUTO DIFRNTL WBC COMPREHEN 24387 KASI VILLASEÑOR SIVE 3 [facility] PANEL HEPATOBIL 99729 RUSSEL RUSSEL SYST 3 RHO RHO IMAG INC GB [place] [address] [employer], [employer], AMYLASE 3 TELE RN TELE RN HATTIE HATTIE CO HOS CO HOS BLOOD 26597 [employer], [employer], COUNT 3 TELE RN TELE RN COMPLETE HATTIE HATTIE AUTO&AUTO CO HOS CO HOS DIFRNTL WBC COMPREHEN 45318 [employer], [employer], SIVE 3 TELE RN TELE RN METABOLIC H[place]IE [place] [address] [facility] INC, [employer], ABDOMINAL 3 TELE RN TELE RN REAL HATTIE HATTIE TIME CO HOS CO HOS W/IMAGE LIMITED ADMN SET A7003 YOUR YOUR SM VOL 3 PHARMACY PHARMACY [facility] PNEUMAT NEBULIZR DISPBL NEBULIZER E0570 DANGELO DANGELO WITH 3 HOME HOME COMPRESSO MEDICAL MEDICAL R EQUIPME EQUIPME RADIOLOGI 64634 NELLIE BALLARD C EXAM 3 EIDER LASHON JET LASHON CHEST 2 VIEWS FRONTAL&L ATERAL RADIOLOGI 33609 NELLIE BALLARD C EXAM 3 EIDER LASHON EIDER LASHON CHEST 2 VIEWS FRONTAL&L ATERAL URINE 49490 [facility] 3 Y Y TEST [facility] VISUAL COLOR CMPRSN METHS BX/EXC 74402 [facility] LYMPH 3 Y Y NODE OPEN [facility] DEEP CERVICAL NODE INJECTION J3010 [facility] FENTANYL 3 Y Y CITRATE [facility] 0.1 MG INFUSION J7030 [facility] NORMAL 3 Y Y SALINE [facility] SOLUTION 1000 CC EXC TUMOR 70910 ADLER ADLER SOFT 3 TONYA TONYA TISS NECK/THOR AX SUBFASCIA L <5CM INJECTION J1100 [facility] 3 Y Y DEXAMETHO [facility] SONE SODIUM PHOSPHATE 1 MG RINGERS J7120 [facility] LACTATE 3 Y Y INFUSION [facility] UP TO 1000 CC INJECTION J2405 [facility] 1 MG ANES 73319 HOWARD JANA HOWARD JANA INTEG 3 MUSC & NRV HEAD NECK&POST ERIOR TRUNK INJECTION J2250 [facility] 3 Y Y [facility]OLAM [facility] [facility] HCL PER 1 [place] [address] MONTILLA MOL MONTILLA MOL SURG 3 PATHOLOGY GROSS&JANA ROSCOPIC EXAM BLOOD 60296 [employer] (formerly [employer]), [employer], COUNT 3 TELE RN TELE RN COMPLETE HATTIE KUHN AUTO&AUTO CO HOS CO HOS DIFRNTL WBC GONADOTRO 82072 [employer] (formerly [employer]), [employer], PIN 3 TELE RN TELE RN CHORIONIC HATTIE KUHN CO HOS CO HOS QUALITATI VE THYROID 16549 [employer] (formerly [employer]), [employer], HORM 3 TELE RN TELE RN UPTK/THYR HATTIE KUHN OID CO HOS CO HOS HORMONE BINDING RATIO BLOOD 47039 [employer], COUNT 3 TELE RN TELE RN COMPLETE HATTIE REILLYS AUTO&AUTO CO HOS CO HOS DIFRNTL WBC HEMOGLOBI 62467 [employer] (formerly [employer]), [employer], N 3 TELE RN TELE RN GLYCOSYLA HATTIE KUHN DOROTHY A1[place] [address] [employer] (formerly [employer]), [employer], THYROID 3 TELE RN TELE RN STIMULATI HATTIE KUHN NG CO HOS CO HOS HORMONE TSH COMPREHEN 29493 [employer] (formerly [employer]), [employer], SIVE 3 TELE RN TELE RN METABOLIC HATTIE HATTIE [place] [address] [employer] (formerly [employer]), [employer], INSULIN 3 TELE RN TELE RN TOTAL [place] [address] [employer] (formerly [employer]), [employer], FREE 3 TELE RN TELE RN THYROXINE [place] [address] [employer] (formerly [employer]), [employer], THYROXINE 3 TELE RN TELE RN TOTAL HATTIE HATTIE CO HOS CO HOS [place] SOFT 39687 HAGENSCHN HAGENSCHN TISSUE 3 EIDER LASHON EIDER LASHON HEAD & [place] [address] [employer] (formerly [employer]), [employer] (formerly [employer]), EXTREMITY 3 TELE RN TELE RN NON-VASC [facility]IE [facility] [place] [address] [facility] CERVICAL 2 ANIBAL SPINE W/O RADIOLOGY CONTRAST ASSOCIAT MATERIAL AMBULANCE A0429 [facility]GLISH ENGLISH SERVICE 2 AMBULETT AMBULETT BLS & & EMERGENCY AMBULANC AMBULANC TRANSPORT GROUND A0425 ENGL[place] ENGLISH MILEAGE 2 AMBULETT AMBULETT PER & & STATUTE AMBULANC AMBULANC MILE EGD 55369 [facility] TRANSORAL 2 Y Y BIOPSY [facility] SINGLE/MU LTIPLE RINGERS J7120 [facility] LACTATE 2 Y Y INFUSION [facility] UP TO 1000 CC COLONOSCO 67836 [facility] PY 2 Y Y W/BIOPSY [facility] SINGLE/MU LTIPLE INJECTION J3010 [facility] FENTANYL 2 Y Y CITRATE [facility] 0.1 MG ANES 72922 [place] [facility] 2 MEDICAL ALB INTESTINE SERVICES ENDOSCOPY DISTAL DUODENUM INJECTION J2250 [facility] 2 Y Y MIDAZOLAM [facility] HCL PER 1 [place] [address] [facility] SURG 2 Y Y PATHOLOGY [facility] GROSS&JANA ROSCOPIC EXAM CUL BACT 77161 [facility] PIPPA 2 Y Y ANAERC [facility] ISOL XCPT UR BLOOD/[place] [address] [employer] (formerly [employer]), [employer] (formerly [employer]), MULT STEP 2 TELE RN TELE RN METHOD HATTIE HATTIE NOS E[place] [address] [facility], CLOSTRIDI 2 TELE RN TELE RN UM HATTIE HATTIE DIFFICILE CO HOS CO HOS TOXIN FAT/LIPID 66826 [facility], S FECES 2 TELE RN TELE RN QUALITATI HATTIE HATTIE VE CO HOS CO HOS RADEX 62929 [facility], FOOT 2 TELE RN TELE RN COMPLETE HATTIE HATTIE MINIMUM 3 CO HOS CO HOS VIEWS IMMUNOASS 39974 [facility] AY 2 Y Y ANALYTE [facility] QUAL/SEMI QUAL MULTIPLE STEP COMPREHEN 30060 [facility] SIVE 2 Y Y METABOLIC [facility] [place] [address] [facility] THYROID 2 Y Y [facility] [place] [address] [facility] GAMMAGLOB 2 Y Y [facility] IGD IGG IGM EACH C-REACTIV 30568 [facility] E PROTEIN 2 Y Y [facility] BLOOD 25963 [facility] COUNT 2 Y Y [facility] AUTOMATED SIMPLE 16783 HATTIE BROOKS REPAIR 2 CO DIOGENES F/E/E/N/L HOSPITAL /M 2.5CM/< SIMPLE 99863 [facility] b-datum, [facility], REPAIR 2 TELE RN TELE RN F/E/E/N/L HATTIE HATTIE /M CO HOS CO HOS 2.5CM/< GONADOTRO 42834 [facility] b-datum, [facility], PIN 2 TELE RN TELE RN CHORIONIC HATTIE HATTIE CO HOS CO HOS QUALITATI VE THERAPEUT 23019 [facility] b-datum, [facility], IC 2 TELE RN TELE RN PROPHYLAC HATTIE HATTIE TIC/DX CO HOS CO HOS INJECTION SUBQ/IM INJECTION J2001 [facility] b-datum, [facility], 2 TELE RN TELE RN LIDOCAINE HATTIE HATTIE HCL CO HOS CO HOS INTRAVENO US INFUS 10 MG INJECTION J1885 [facility], [facility] INC, 2 TELE RN TELE RN KETOROLAC HATTIE HATTIE CO HOS CO HOS TROMETHAM INE [address] [place] [address] [facility] INC, MHC INC, CERVICAL 2 TELE RN TELE RN SPINE W/O HATTIE KUHN CONTRAST CO HOS CO HOS MATERIAL RADEX 22078 [facility] INC, [employer], SPINE 2 TELE RN TELE RN LUMBOSACR HATTIE KUHN AL 2/3 CO HOS CO HOS VIEWS RADEX 98990 [facility] INC, [employer], SPINE 2 TELE RN TELE RN THORACIC HATTIE KUHN 2 [place] [address] MD DIEGO CORTEZ MD TRANSVAGI 2 STEPHEN STEPHEN NAL HEPATOBIL 16378 [facility] [place] SYST 2 [facility] IMAG [facility] HOSPITAL GB W/PHARMA INTERVENJ BASIC 12524 [facility] METABOLIC 2 [facility] [address] [place] [facility] MAT ABDOMEN & 2 RADIOLOGY PELVIS W/O CONTRAST MATERIAL URINE 52120 [facility] [place] 2 [facility] VISUAL COLOR CMPRSN METHS THER 93785 [facility] PROPH[facility]DX 2 [facility] NJX IV [facility] PUSH SINGLE/1S T SBST/DRUG BLOOD 19237 [facility] 2 [facility] AUTO&AUTO DIFRNTL WBC COLLECTIO 78814 [facility] N VENOUS 2 [facility] VENIPUNCT URE URNLS DIP [address] STICK/TAB [facility] HOSPITAL LET REAGENT AUTO MICROSCOP Y CYTP C/V 45360 PATHOLOGY PICKLESIM AUTO THIN 2 & ER JR RADAMES LYR CYTOLOGY PREPJ SCR LAB MNL RESCR PHYS URINLS 87174 JEFE MAYBERRY DARRION DIP 2 STICK/TAB LET REAGNT NON-AUTO MICRSCPY URINLS 36595 JEFE MAYBERRY DARRION DIP 2 STICK/TAB LET REAGNT NON-AUTO MICRSCPY IAADIADOO 34843 JEFE MAYBERRY DARRION 1 STREPTOCO CCUS GROUP A COLLECTIO 46955 JEFE MAYBERRY DARRION N VENOUS 1 BLOOD VENIPUNCT URE GENERAL 85887 [facility] HEALTH 1 AMERIC [place] [address] [facility] THYROXINE 1 AMERIC AMERIC TOTAL HOLDINGS HOLDING THYROID 47989 [facility] HORM 1 AMERIC AMERIC UPTK/THYR HOLDINGS HOLDING OID HORMONE BINDING RATIO RADEX 87198 HATTIE KUHN ELBOW 1 CO CO COMPLETE [facility] MINIMUM 3 [place] [address] MD DIEGO CORTEZ MD TRANSVAGI 1 STEPHEN STEPHEN NAL THER 80444 [facility] PROPH/DX 1 Y Y NJX IV HOSPITAL HOSPITAL PUSH SINGLE/1S T SBST/DRUG BLOOD 24902 [facility] COUNT 1 Y Y COMPLETE [facility] AUTO&AUTO DIFRNTL WBC RINGERS J7120 [facility] LACTATE 1 Y Y INFUSION [facility] UP TO [address] [place] [address] [facility] LIPASE 1 Y Y [facility] DUP-SCAN 36642 [place] [facility] ART[facility] RADHA 1 MEDICAL [place] ABDL/PEL/ SERV SCROT&/RP FOUNDATIO R ORGN COM INJECTION J2405 [facility] 1 [facility] MG HOSPITAL 88889 [facility] DISCHARGE 1 OSI OSI DAY MANAGEMEN T > 30 MIN INFUSION J7030 [facility] NORMAL 1 Y Y SALINE [facility] SOLUTION 1000 CC THERAPEUT 53895 [facility] IC 1 Y Y INJECTION [facility] IV PUSH EACH NEW DRUG US PELVIC 64393 [facility] 1 [facility] NONOBSTET RADIOLOGY FERMÍN ASSOCIAT REAL-TIME IMAGE COMPLETE INJECTION J2270 [facility] MORPHINE 1 Y Y SULFATE [facility] HOSPITAL UP TO 10 MG COMPREHEN 76289 [facility] SIVE 1 Y Y METABOLIC [facility] [place] [address] [facility] INFUSION 1 Y Y HYDRATION [facility] EACH ADDITIONA L HOUR URNLS DIP 46200 [facility] 1 Y Y STICK/TAB [facility] HOSPITAL LET RGNT AUTO W/O MICROSCOP Y URINE 37371 HATTIE KUHN 1 CO CO TEST HOSPITAL HOSPITAL VISUAL COLOR CMPRSN METHS SBSQ 91087 [facility] 1 DREAD DREAD CARE/DAY 25 MINUTES INITIAL 02304 [facility] 1 OSI OSI CARE/DAY 70 MINUTES INJECTION J2550 HATTIE KUHN 1 CO CO [facility] INE HCL UP TO 50 MG BLOOD 70946 HATTIE KUHN COUNT 1 CO CO COMPLETE HOSPITAL HOSPITAL AUTO&AUTO DIFRNTL WBC BASIC 70723 HATTIE KUHN METABOLIC 1 CO CO PANEL HOSPITAL HOSPITAL CALCIUM TOTAL URNLS DIP 33268 HATTIE HATTIE 1 CO CO STICK/TAB HOSPITAL H[place]PITAL [place] [address] HATTIE KUHN INFUSION 1 CO CO THERAPY/P [facility] S /DX 1ST TO 1 HR HOSPITAL G0378 HATTIE KUHN OBSERVATI 1 CO CO ON HOSPITAL HOSPITAL SERVICE PER HOUR COLLECTIO 93728 [facility] VENOUS 1 [facility] BLOOD [facility] HOSPITAL VENIPUNCT URE URNLS DIP 31925 [place] 1 [facility] STICK/TAB HOSPITAL HOSPITAL LET REAGENT AUTO MICROSCOP Y COMPREHEN 49590 [place] SIVE 1 [facility] PANEL URINE 85088 [place] 1 [facility] TEST [facility] HOSPITAL VISUAL COLOR CMPRSN METHS BLOOD 85785 [place] COUNT 1 [facility] COMPLETE [facility] AUTO&AUTO DIFRNTL WBC THER 75322 [place] PROPH/DX 1 [facility] NJX IV HOSPITAL HOSPITAL PUSH SINGLE/1S T SBST/[place] [address] [place] ABDOMEN & 1 [facility] PELVIS [facility] HOSPITAL W/CONTRAS T MATERIAL APPLICATI 84256 HATTIE BLANK ON FINGER 1 CO [facility] STATIC RADEX 81246 [facility] HAND 1 FERMÍN MINIMUM 3 RADIOLOGY VIEWS ASSOCIAT IAADIADOO 52322 REJI MAYBERRY DARRION 1 MEDICAL STREPTOCO CLINIC CCUS GROUP A SMR PRIM [phone] 35109 HATTIE KUHN SRC 0 CO CO GRAM/GIEM [facility] SA STAIN BCT FUNGI/DARELL L PRESSURIZ 52890 HATTIE KUHN ED/NONPRE 0 CO CO SSURIZED [facility] INHALATIO N TREATMENT CUL BACT 28543 HATTIE KUHN XCPT 0 CO CO URINE [facility] BLOOD/STO OL [facility]OSP[facility] 48006 [facility] DISCHARGE 0 DREAD DREAD DAY MANAGEMEN T 30 MIN/< INITIAL 08295 [facility] 0 DREAD DREAD CARE/DAY 50 MINUTES BLOOD 40402 HATTIE KUHN COUNT 0 CO CO SMEAR [facility] MCRSCP W/MNL DIFRNTL WBC COUNT PRESSURIZ 43054 HATTIE KUHN ED/NONPRE 0 CO CO SSURIZED [facility] INHALATIO N TREATMENT COLLECTIO 13869 HATTIE KUHN N VENOUS 0 CO CO BLOOD [facility] G0378 HATTIE KUHN OBSERVATI 0 CO CO ON HOSPITAL HOSPITAL SERVICE PER HOUR ELECTROLY 99668 HATTIE KUHN TE PANEL 0 CO CO [facility] URNLS DIP 10552 HATTIE KUHN 0 CO CO STICK/TAB [facility] LET REAGENT AUTO MICROSCOP Y US PELVIC 83797 [facility] 0 FERMÍN NONOBSTET RADIOLOGY FERMÍN ASSOCIAT REAL-TIME IMAGE COMPLETE URS DIP 54639 HATTIE KUHN 0 CO CO STICK/TAB [facility] LET REAGENT AUTO MICROSCOP Y PRESSURIZ 47134 HATTIE KUHN ED/NONPRE 0 CO CO SSURIZED [facility] HOSPITAL INHALATIO N TREATMENT COLLECTIO 71692 HATTIE KUHN N VENOUS 0 CO CO BLOOD [facility] [place] [address] HATTIE KUHN STREPTOCO 0 CO CO CCUS [facility] [place] [place] [address] HATTIE KUHN INFUSION 0 CO CO THERAPY/P [facility] ROPHYLAXI S /DX 1ST TO 1 HR BLOOD 65334 HATTIE KUHN COUNT 0 CO CO SMEAR [facility] MCRSCP W/MNL DIFRNTL WBC COUNT CUL BACT 87935 HATTIE KUHN XCPT 0 CO CO URINE [facility] BLOOD/STO OL AEROBIC ISOL ANTIBODY 94231 HATTIE KUHN INFLUENZA 0 CO CO VIRUS [facility] BASIC 49219 HATTIE KUHN METABOLIC 0 CO CO [facility] CALCIUM TOTAL RADIOLOGI 06401 [facility] EXAM 0 FERMÍN CHEST 2 RADIOLOGY VIEWS ASSOCIAT FRONTAL&L ATERAL GONADOTRO 13904 HATTIE KUHN PIN 0 CO CO CHORIONIC [facility] QUALITATI VE RADEX 86893 HATTIE KUHN HAND 0 CO CO MINIMUM 3 [facility] VIEWS [facility] PELVIS 19443 [place] [facility], 0 RADIOLOGY VALERIE D W/[place] [address] [place] [facility], ABDOMEN 0 RADIOLOGY VALERIE D W/CONTRAS T MATERIAL BASIC 25174 [facility] [place] METABOLIC 0 [facility] CALCIUM TOTAL URINLS 67886 MIKEY GUAJARDO 0 MEDICAL DINAH R STICK/TAB CLINIC LET REAGNT NON-AUTO MICRSCPY BLOOD 13609 [place] COUNT 0 [facility] AUTO&AUTO DIFRNTL WBC COLLECTIO 91449 [facility] N VENOUS 0 [facility] [place] [address] [facility] PROLACTIN 0 [facility] GLUCOSE 64482 [facility] QUANTITAT 0 [facility] MORENITA BLOOD XCPT REAGENT STRIP DEHYDROEP 05261 [facility] IANDROSTE 0 [facility] [address] [facility] INSULIN 0 [facility] [place] [address] [facility] THYROID 0 [facility] STIMULATI NG [place]ORM[place] TSH URINLS 08378 [facility], DIP 0 MEDICAL DINAH R STICK/TAB CLINIC LET REAGNT NON-AUTO MICRSCPY CULTURE 96262 [facility] BACTERIAL 0 AMERIC AMERIC HOLDING HOLDING QUANTTATI VE COLONY COUNT URINE URINLS 42348 REJI ALBARADO, DIP 0 MEDICAL DINAH R STICK/TAB CLINIC LET REAGNT NON-AUTO MICRSCPY URINE 40128 REJI ALBARADO, 0 MEDICAL DINAH R TEST CLINIC VISUAL COLOR CMPRSN METHS THERAPEUT 24701 [facility], IC PX 1/> 9 VISION ZEINAB S AREAS ANDLEARNI EACH 15 NG MIN EXERCISES ORTHOPTIC 86537 [facility], 9 VISION ZEINAB S &/PLEOPTI ANDLEARNI C NG TRAINING W/[place] [address] [facility], 1/> AREAS 9 VISION ZEINAB S EACH 15 ANDLEARNI [place] [address] [facility], 1/> AREAS 9 VISION ZEINAB S EACH 15 ANDLEARNI MIN NG NEUROMUSC REEDUCA ORTHOPTIC 28365 [facility], 9 VISION ZEINAB S &/PLEOPTI ANDLEARNI C NG TRAINING W/MEDICAL DIRECTJ THERAPEUT 24630 [facility], IC PX 1/> 9 VISION ZEINAB S AREAS ANDLEARNI EACH 15 NG MIN EXERCISES THERAPEUT 21477 [facility], IC PX 1/> 9 VISION ZEINAB S AREAS ANDLEARNI EACH 15 NG MIN EXERCISES ORTHOPTIC 78172 [facility], 9 VISION ZEINAB S &/PLEOPTI ANDLEARNI C NG TRAINING W/[place] [address] [facility], 1/> AREAS 9 VISION ZEINAB S EACH 15 [place] [address] JOLIE GUTHRIE 9 ZEINAB S REAL RADIOLOGY TIME W/IMAGE ASSOCIATE DOCUMENTA S PSC TION URNLS DIP 28092 HATTIE KUHN 9 CO CO STICK/TAB [facility] HOSPITAL LET REAGENT AUTO MICROSCOP Y RADIOLOGI 28600 Alex GUTHRIE 9 ZEINAB S EXAMINATI RADIOLOGY ON PELVIS 1/2 ASSOCIATE VIEWS S PSC RADEX HIP 23055 [place] [facility], 9 ZEINAB S UNILATERA RADIOLOGY L COMPLETE ASSOCIATE MINIMUM 2 S PSC VIEWS RADEX 83242 [place] [facility], SHOULDER 9 ZEINAB S COMPLETE RADIOLOGY MINIMUM 2 VIEWS ASSOCIATE S PSC CULTURE 62373 HATTIE VICKOLAS BACTERIAL 9 [facility] QUANTTATI VE COLONY COUNT URINE RADEX 77710 [place] [facility], ELBOW 9 ZEINAB S COMPLETE RADIOLOGY MINIMUM 3 VIEWS ASSOCIATE S PSC THERAPEUT 66312 [facility], IC PX 1/> 9 VISION ZEINAB S AREAS ANDLEARNI EACH 15 [place] [address] [facility], 1/> AREAS 9 VISION ZEINAB S EACH 15 ANDLEARNI MIN NG NEUROMUSC REEDUCA ORTHOPTIC 78441 [facility], 9 VISION ZEINAB S &/PLEOPTI ANDLEARNI C NG TRAINING W/MEDICAL DIRECTJ ORTHOPTIC 49347 [facility], 9 VISION ZEINAB S &/PLEOPTI ANDLEARNI C NG TRAINING W/[place] [address] [facility], 1/> AREAS 9 VISION ZEINAB S EACH 15 ANDLEARNI MIN NG NEUROMUSC REEDUCA THERAPEUT 31680 [facility], IC PX 1/> 9 VISION ZEINAB S AREAS ANDLEARNI EACH 15 NG MIN EXERCISES THERAPEUT 26397 [facility], IC PX 1/> 9 VISION ZEINAB S AREAS ANDLEARNI EACH 15 [place] [address] [facility], 1/> AREAS 9 VISION ZEINAB S EACH 15 ANDLEARNI MIN NG NEUROMUSC REEDUCA ORTHOPTIC 88872 [facility], 9 VISION ZEINAB S &/PLEOPTI ANDLEARNI C NG TRAINING W/MEDICAL DIRECTJ SENSORMOT 93132 [facility] [place], [place] XM 9 VISION ZEINAB S W/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 ANDLEARNI HILDA NG OCULAR DEVIJ W/I&R SPX FITTING 60903 FAMILY EZKEIEL, SPECTACLE 9 EYECARE ZEINAB S S XCPT ASSOCIATE APHAKIA S MONOFOCAL OPHTH 86629 FAMILY FALCON MEDICAL 9 [facility] ZEINAB S XM&EVAL ASSOCIATE COMPRE S NEW PT 1/> VST FRAMES V2020 FAMILY FALCNO PURCHASES 9 [facility] ZEINAB S ASSOCIATE S 1 VISN V2103 FAMILY FALCON, PLANO 9 [facility] ZEINAB S TO+/-4.00 ASSOCIATE D SPHER S 0.12-2.00 D CYL EA DETERMINA 46060 [facility] TION 9 [facility] ZEINAB S [place] [address] HATTIE KUHN STREPTOCO 9 CO [facility] A CUL BACT 36004 HATTIE KUHN XCPT 9 [facility] URINE [facility] BLOOD/STO OL AEROBIC ISOL ANTIBODY 00316 HATTIE KUHN INFLUENZA 9 [facility] CUL BACT 57988 HATTIE KUHN XCPT 9 [facility] URINE [facility] BLOOD/[place] [address] HATTIE KUHN STREPTOCO 9 [facility] [place] [address] HATTIE KUHN STREPTOCO 9 [facility] CUL BACT 83224 HATTIE KUHN XCPT 9 [facility] URINE [facility] BLOOD/STO OL AEROBIC ISOL THER 74037 HATTIE KUHN PROPH/DX 8 CO [facility] SUBQ/IM RADIOLOGI 88873 Alex GUTHRIE EXAMINATI RADIOLOGY ON FOOT 2 VIEWS ASSOCIATE S [facility] RADIOLOGI 84244 Alex GUTHRIE EXAMINATI RADIOLOGY ON ANKLE 2 VIEWS ASSOCIATE S [facility] RADEX 02302 HATTIE KUHN ANKLE 8 [facility] MINIMUM 3 VIEWS RADIOLOGI 00651 HATTIE Johnson 8 CO [facility] ON KNEE 3 VIEWS RADIOLOGI 14967 Alex GUTHRIE S EXAMINATI RADIOLOGY ON KNEE 1/2 VIEWS ASSOCIATE S PSC RADEX 76457 HATTIE REILLYS FOOT 8 CO CO COMPLETE [facility] HOSPITAL MINIMUM 3 VIEWS DEMO&/KERWIN 65920 INGE ALCAZAR, L OF PT 8 CHAD B CHAD B UTILIZ AERSL GEN/NEB/I NHLR/IP INTRACUTA 19235 INGE ALCAZAR, NEOUS 8 CHAD B CHAD B TESTS W/ALLERGE KIERA EXTRACTS PERCUTANE 95897 INGE ALCAZAR, OUS TESTS 8 CHAD B CHAD B W/ALLERGE KIERA EXTRACTS BRNCDILAT 25486 INGE ALCAZAR, RSPSE 8 CHAD B CHAD B SPMTRY PRE&POST- BRNCDILAT [facility] 94792 [facility] DISCHARGE 7 Y [facility] PEDIA T 30 MIN/< SBSQ 12584 [facility] 7 Y OF [facility] CARE/DAY [place] 25 PEDIA MINUTES SBSQ 24404 [facility] 7 Y OF [facility] CARE/DAY [place] 25 PEDIA MINUTES INITIAL 29532 [facility] 7 Y OF CARE/DAY [place] 70 PEDIA MINUTES ECG 63792 [facility] ROUTINE 7 Y OF ECG [place] W/LEAST PEDIA 12 LDS W/I&R Encounters Encounter Start End Date Code Location Performer Type Date OFFICE 97345 [facility] 7 7 ASTHMA III T NEW 45 ASSOC OF MINUTES TH OFFICE 42885 [facility]ANON OUTPATIEN 7 7 CLINIC SE T VISIT 15 MINUTES [facility] TENRIISM - 7 7 HEALTH OUTPATIEN [place] T PERIODIC 18362 [facility] 7 7 [facility] E MED EST HLTH DEPT HLTH DEPT PATIENT KIERA KIERA 18-40 YRS [facility] T[facility]RIISM - 7 7 [facility] [place] [facility] 7 [facility] T OFFICE 02461 [facility] 7 7 [facility] T VISIT [facility] DEPT [facility] DEPT 10 KIERA KIERA MINUTES OFFICE 52557 TENRIISM [facility] 7 7 HEALTH T NEW 60 MEDICAL MINUTES [facility] TENRIISM - 7 7 [facility] 7 EMERGENCY VISIT PHYS PSC HIGH SEVERITY& THREAT FUNCJ OFFICE 01912 [facility] 7 7 T NEW 20 MINUTES OFFICE 28071 KASI VILLAGOMEZ [facility] 7 7 PHYSICIAN T VISIT PRACTICE 15 L MINUTES OFFICE 52382 VELIA BARNETT [facility] 7 7 CLINIC SE T VISIT 15 MINUTES EMERGENCY 30183 CLEMENT MUNIZ 7 7 PHYSICIAN DEPARTMEN S, PLL T VISIT HIGH/URGE NT SEVERITY EMERGENCY 60919 [facility] 7 7 MEM H[facility] DEPARTMEN INC T VISIT LOW/MODER SEVERITY [facility]OSPITAL [facility] - 7 7 [facility] T OFFICE 76618 [facility] 7 7 [facility] T VISIT [facility] DEPT [facility] DEPT 10 KIERA KIERA MINUTES OFFICE 45090 [facility]ELIA [facility] 7 7 CLINIC T VISIT 15 MINUTES [facility] 74572 [facility] 6 [facility] T VISIT MODERATE SEVERITY EMERGENCY 69395 [facility] 6 6 DARRIN PAT DEPARTMEN EMERGENCY T VISIT PHYS HIGH/URGE NT SEVERITY [facility]OSPITAL [place] - 6 6 [facility] T OFFICE 83490 [facility] 6 6 [facility] T VISIT 5 HLTH DEPT TH DEPT MINUTES KIERA KIERA OFFICE 83990 [facility] 6 [facility] T VISIT HLTH DEPT TH DEPT 10 KIERA KIERA MINUTES OFFICE 50289 VELIA SCHMITZ- OUTPATIEN 6 6 CLINIC SE SARAH T VISIT 15 MINUTES EMERGENCY 89824 [place] 6 6 [facility] T VISIT LOW/MODER SEVERITY [facility] 6 [facility] T EMERGENCY 11318 [facility] 6 6 [facility] EMERGENCY T VISIT PHYS MODERATE SEVERITY EMERGENCY 15311 [facility] 6 6 [facility] EMERGENCY T VISIT PHYS HIGH/URGE NT SEVERITY EMERGENCY 35856 [facility] T VISIT MODERATE [facility]VERITY [facility] 6 [facility] T PERIODIC 18460 [facility] 6 6 [facility] E MED EST [facility] DEPT [facility] DEPT PATIENT KIERA KIERA 18-39 YRS EMERGENCY 27760 [facility] 6 6 [facility] EMERGENC[facility] T VISIT PHYS HIGH/URGE NT SEVERITY EMERGENCY 91359 [facility] 6 6 [facility] T VISIT MODERATE [facility]VERITY [facility] 6 [facility] 6 [facility] T OFFICE 52779 [facility] DEL[facility] 6 6 DIGESTIVE [facility] T VISIT CARE 25 CENTER MINUTES OFFICE 73179 VELIA SCHMITZ- OUTPATIEN 6 6 [facility]IN[facility] T VISIT 25 MINUTES OFFICE 96853 [facility] T VISIT TH DEPT HLTH DEPT 10 KIERA KIERA MINUTES OFFICE 08005 VELIA OATES OUTPATIEN 6 6 CLINIC T VISIT 15 MINUTES OFFICE 35218 BLACK DELCID OUTPATIEN 6 6 [facility] T NEW 45 CARE MINUTES CENTER OFFICE 13805 VEILA BARNETT OUTPATIEN 6 6 [facility]IN[facility] T VISIT 15 MINUTES OFFICE 15805 HATTIE RESENDIZ OUTPATIEN 6 6 [facility] T VISIT URGENT 25 TREAT MINUTES OFFICE 29703 [facility] 6 [facility] T VISIT TH DEPT [facility] DEPT 10 KIERA KIERA MINUTES OFFICE 42295 HATTIE RESENDIZ OUTPATIEN 6 6 [facility] T VISIT URGENT 25 TREAT MINUTES EMERGENCY 50422 [facility]ORKPOR [facility]ORKPOR 5 5 [facility] DEPARTMEN T VISIT HIGH/URGE NT SEVERITY OFFICE 67781 HATTIE RESENDIZ OUTPATIEN 5 5 [facility] T VISIT URGENT 25 TREAT MINUTES OFFICE 30661 [facility] 5 [facility] T VISIT TH DEPT [facility] DEPT 10 KIERA KIERA MINUTES OFFICE 23597 EAR, NOSE SHASHY CONSULTAT 5 5 AND MIRANDA ION THROAT NEW/ESTAB SPECIAL PATIENT 60 MIN OFFICE 03281 HATTIE RESENDIZ OUTPATIEN 5 5 [facility] T VISIT URGENT 25 TREAT MINUTES EMERGENCY 53452 [facility]POR VORKPOR 5 5 [facility] DEPART[facility] T VISIT HIGH/URGE NT SEVERITY INITIAL 02040 [facility] 5 5 [facility] E TH DEPT [facility] DEPT MEDICINE KIERA KIERA NEW PT AGE 18-39YRS EMERGENCY 71180 CLEMENT HERNADEZ 5 5 [facility]PART[facility] T VISIT MODERATE SEVERITY EMERGENCY 14243 MIMI 5 5 [facility] T VISIT LOW/MODER SEVERITY [facility]OSPITAL [facility] - 5 5 [facility] 34515 [place] 5 5 [facility] T VISIT HIGH/URGE NT SEVERITY HOSPITAL [place] - 5 5 [facility] T EMERGENCY 01815 HERBERTH KEVIN DEPT 5 5 EDW EDW VISIT HIGH SEVERITY& THREAT [facility] T OFFICE 05204 VELIABHAVIK SCHMITZ- [facility] 5 5 [facility] T VISIT 15 MINUTES OFFICE 93564 VELIA SCHMITZ- [facility] 5 5 [facility] T VISIT 15 MINUTES EMERGENCY 04636 [place] 5 5 [facility] T VISIT HIGH/URGE NT SEVERITY [facility] T OFFICE 52774 INGE INGE [facility] 5 5 CHAD CHAD T VISIT 25 MINUTES OFFICE 95146 VELIA OATES [facility] 4 4 CLINIC T VISIT 15 MINUTES EMERGENCY 33129 SESAR HERNADEZ DEPT 4 4 VISIT HIGH SEVERITY& THREAT FUN OFFICE 11120 MEANS BUTROS OUTPATIEN 4 4 ADULT MARISEL T VISIT PRIMARY 15 CARE CLI MINUTES HOSPITAL MIMI - 4 4 [facility] 93661 [facility] 4 CLINIC T VISIT 15 MINUTES OFFICE 63497 MEANS BUTROS OUTPATIEN 4 4 ADULT MARISEL T VISIT PRIMARY 15 CARE CLI MINUTES OFFICE 67946 [facility] 4 CLINIC T VISIT 15 MINUTES HOSPITAL MIMI - 4 4 [facility] T EMERGENCY 97535 DEANGELO ESQUIVELEY 4 4 [facility] T VISIT MODERATE SEVERITY OFFICE 93649 MEANS BUTROS OUTPATIEN 4 4 ADULT MARISEL T VISIT PRIMARY 15 CARE CLI MINUTES EMERGENCY 46028 MIMI 4 4 [facility] T VISIT LOW/MODER SEVERITY OFFICE 65814 VELIA SCHMITZ- OUTPATIEN 4 4 [facility] T VISIT 15 MINUTES OFFICE 58356 VELIA SCHMITZ- OUTPATIEN 4 4 [facility] T VISIT 15 MINUTES OFFICE 92686 MEANS BUTROS OUTPATIEN 4 4 ADULT MARISEL T VISIT PRIMARY 15 CARE CLI MINUTES OFFICE 15066 INTEGR[facility] RICHARDS, OUTPATIEN 4 4 JR. GAUTAM T VISIT ORTHOPAED 15 ICS SPORT MINUTES [facility]OSP[facility] - 4 4 [facility] OUTPATIEN AUSTEN T EMERGENCY 97439 FLAVIO FLAVIO 4 4 JANA JANA DEPARTMEN T VISIT MODERATE SEVERITY OFFICE 39945 INTEGRITY CHATTHA OUTPATIEN 4 4 SHANNON T VISIT ORTHOPAED 15 ICS SPORT MINUTES OFFICE 62084 VELIA SCHMITZ- OUTPATIEN 4 4 [facility] T VISIT 15 MINUTES OFFICE 31390 CHATTHA CHATTHA OUTPATIEN 4 4 SHANNON SHANNON T NEW 30 MINUTES OFFICE 40765 LUIS FERNANDO LUIS FERNANDO CONSULTAT 4 4 LES LES ION NEW/ESTAB PATIENT 40 MIN OFFICE 08284 VELIA RICHARDSON OUTPATIEN 4 4 CLINIC SERA T VISIT 25 MINUTES OFFICE 70302 VEILA SCHMITZ- OUTPATIEN 4 4 [facility] T VISIT 15 MINUTES OFFICE 76405 [facility] ZEPEDA OUTPATIEN 4 4 [facility] T VISIT 15 MINUTES OFFICE 27551 [facility] [facility] OUTPATIEN 4 4 [facility] T VISIT [address] [facility] - 4 4 TELE RN OUTPATIEN HATTIE T [facility] HOS [facility], - 4 4 TELE RN OUTPATIEN HATTIE T CO HOS OFFICE 18604 ZEPEDA ZEPEDA OUTPATIEN 4 4 [place] T VISIT 10 MINUTES OFFICE 03425 INGE INGE OUTPATIEN 4 4 CHAD CHAD T VISIT 25 MINUTES OFFICE 98740 [facility] OUTPATI[facility] 4 4 [place] T VISIT 15 MINUTES OFFICE 74754 ASTRID RESENDIZ OUTPATIEN 4 4 KAREN JONES T VISIT 15 MINUTES PERIODIC 65385 [facility] PREVENTIV 4 4 [place] E MED EST PATIENT 12-YRS EMERGENCY [address]21 [facility], 4 4 TELE RN DEPARTMEN HATTIE T VISIT CO HOS HIGH/URGE NT SEVERITY [facility], - 4 4 TELE RN OUTPATIEN HATTIE T CO HOS OFFICE 89328 [facility] OUTPATI[facility] 4 4 [place] T VISIT 10 MINUTES OFFICE 85059 [place] Z[facility] OUTPATIEN 3 3 [place] T VISIT 15 MINUTES OFFICE 09499 INGE INGE OUTPATIEN 3 3 CHAD CHAD T VISIT 25 MINUTES OFFICE 90958 [facility] OUTPATIEN 3 3 [place] T VISIT [address] [facility], - 3 3 TELE RN OUTPATIEN HATTIE T CO HOS OFFICE 01786 INGE INGE OUTPATIEN 3 3 CHAD CHAD T VISIT [address] [facility], - 3 3 TELE RN OUTPATIEN [facility]ATTIE T CO HOS OFFICE 35125 [facility] 3 3 KAREN JONES T VISIT 15 MINUTES OFFICE 92758 INGE ALCAZAR CONSULTAT 3 3 CHAD HUGO NEW/ESTAB PATIENT 80 MIN [facility] [place] - 3 3 [facility] T OFFICE 58862 [facility] 3 3 [place] T VISIT 15 MINUTES [facility] [place] - 3 3 [facility] T OFFICE 33051 ALLRAN JR ALLRAN JR CONSULTAT 3 3 KASSANDRA HUGO NEW/ESTAB PATIENT 40 MIN OFFICE 32355 [facility] 3 3 [place] T VISIT [address] [facility] - 3 3 TELE [facility] OFF[facility] 86352 [facility] 3 3 KAREN JONES T VISIT 15 MINUTES EMERGENCY 63962 KARI PIERCE 3 3 [facility] T VISIT HIGH/URGE NT SEVERITY [facility], - 3 3 TELE RN INPATIENT [facility] HOS HOSPITAL UN[facility]ERSIT - 3 3 [facility], - 3 3 TELE RN OUTPATIEN HATTIE CO HOS OFFICE 90892 AHMED ADN AHMED ADN OUTPATIEN 3 3 T VISIT 15 MINUTES OFFICE 49259 VITOR ADLER OUTPATIEN 3 3 TONYA TONYA T NEW 30 MINUTES OFFICE 98610 VELIA SCHMITZ- OUTPATIEN 3 3 [facility] T VISIT [address] [facility], - 3 3 TELE RN OUTPATIEN HATTIE T CO HOS OFFICE 51513 VELIA SCHMITZ- OUTPATIEN 3 3 [facility] T NEW 30 MINUTES OFFICE 42791 MARYANN MARYANN OUTPATIEN 3 3 ALICIAAlfreda KINCAIDZ T VISIT 40 MINUTES OFFICE 73908 AHMED ADN AHMED ADN OUTPATIEN 2 2 T VISIT 15 MINUTES OFFICE 01944 [facility] OUTPATIEN 2 2 T MANUEL T MANUEL T VISIT 25 MINUTES HOSPITAL UNIVERSIT - 2 2 Y OUTPATIEN HOSPITAL T [facility], - 2 2 TELE RN OUTPATIEN HATTIE T CO HOS EMERGENCY 65959 [facility], 2 2 TELE RN DEPARTMEN HATTIE T VISIT CO HOS LOW/MODER SEVERITY OFFICE 14348 AHMED ADN AHMED ADN OUTPATIEN 2 2 T VISIT 15 MINUTES OFFICE 04989 [facility], OUTPATIEN 2 2 TELE RN T VISIT 5 HATTIE MINUTES [facility] H[facility], - 2 2 TELE RN OUTPATIEN HATTIE T CO HOS OFFICE 59369 AHMED ADN AHMED ADN OUTPATIEN 2 2 T NEW 60 MINUTES OFFICE 49199 [facility] CONSULTAT 2 2 T MANUEL T MANUEL ION NEW/ESTAB PATIENT 40 MIN [facility]OSPITAL [facility] - 2 2 [facility] 26860 [facility], 2 2 TELE RN DEPARTMEN HATTIE T VISIT CO HOS LIMITED/M INOR PROB EMERGENCY 01245 [facility], 2 2 TELE RN DEPARTMEN HATTIE T VISIT CO HOS MODERATE SEVERITY [facility], - 2 2 TELE RN OUTPATIEN HATTIE T CO HOS OFFICE 26300 MD DIEGO CORTEZ MD OUTPATIEN 2 2 STEPHEN STEPHEN T VISIT 15 MINUTES OFFICE 14352 SARY OKEEFE CONSULTAT 2 2 JOSE JOSE ION NEW/ESTAB PATIENT 60 MIN [facility] [place] - 2 2 [facility] T OFFICE 16503 PER ALBARADO JR OUTPATIEN 2 2 VIRGINIE VIRGINIE T VISIT 15 MINUTES [facility] [place] - 2 2 [facility] T EMERGENCY 88304 SESAR HERNADEZ DEPT 2 2 VISIT HIGH SEVERITY& THREAT [facility] EMERGENCY 89519 GORGEON 2 2 [facility] T VISIT HIGH/URGE NT SEVERITY OFFICE 27447 PER ALBARADO JR OUTPATIEN 2 2 VIRGINIE VIRGINIE T VISIT 15 MINUTES OFFICE 37879 MD DIEGO CORTEZ MD OUTPATINANCI 2 2 STEPHEN STEPHEN T VISIT 15 MINUTES OFFICE 37568 JEFE MAYBERRY DARRION OUTPATIEN 2 2 T VISIT 15 MINUTES OFFICE 67196 JEFE MAYBERRY DARRION OUTPATIEN 2 2 T VISIT 25 MINUTES OFFICE 11572 JEFE MAYBERRY DARRION OUTPATIEN 2 2 T VISIT 15 MINUTES OFFICE 20692 JEFE MAYBERRY DARRION OUTPATIEN 1 1 T VISIT 15 MINUTES OFFICE 39200 JEFE MAYBERRY DARRION OUTPATIEN 1 1 T VISIT 15 MINUTES HOSPITAL HATTIE - 1 1 [facility] T EMERGENCY 55773 HATTIE 1 1 [facility] T VISIT LIMITED/M INOR PROB EMERGENCY 54655 HATTIE 1 1 [facility] T VISIT LOW/MODER SEVERITY OFFICE 30776 MD DIEGO CORTEZ MD OUTPATIEN 1 1 STEPHEN MITCHELL T NEW 30 MINUTES EMERGENCY 85929 HIEN STEVE 1 1 MEDICAL [facility] SERV T VISIT FOUNDATIO HIGH/URGE NT SEVERITY EMERGENCY 92782 UNIVERSIT DEPT 1 1 Y VISIT HOSPITAL HIGH SEVERITY& THREAT [facility] - 1 1 Y [facility] HOSPITAL T EMERGENCY 42450 HATTIE 1 1 [facility] T VISIT HIGH/URGE NT SEVERITY HOSPITAL HATTIE - 1 1 [facility] T EMERGENCY 50930 [place] 1 1 [facility] T VISIT HIGH/URGE NT SEVERITY [facility] [place] - 1 1 [facility] T OFFICE 19013 REJI MAYBERRY DARRION OUTPATIEN 1 1 MEDICAL T VISIT CLINIC 25 MINUTES HOSPITAL [facility]ATTIE - 1 1 [facility] EMERGENCY 19615 HATTIE 1 1 [facility] T VISIT LOW/MODER SEVERITY OFFICE 48540 REJI MAIER OUTPATIEN 1 1 MEDICAL T VISIT CLINIC 25 MINUTES OFFICE 24702 SPIREK SPIRSANTOS OUTPATIEN 0 0 ANI ANI T VISIT 15 MINUTES EMERGENCY 50343 HATTIE DEPT 0 0 CO VISIT HOSPITAL HIGH SEVERITY& THREAT [facility] HATTIE - 0 0 [facility] T OFFICE 26794 REJI ALBARADO VIRGINIE OUTPATIEN 0 0 MEDICAL T VISIT CLINIC 15 MINUTES EMERGENCY 32567 HATTIE 0 0 [facility] T VISIT MODERATE SEVERITY HOSPITAL HATTIE - 0 0 [facility] [place] - 0 0 [facility] T OFFICE 79565 REJI ALBARADO OUTPATIEN 0 0 MEDICAL DINAH R T VISIT CLINIC 25 MINUTES OFFICE 27085 SPIREK, SPIREK, OUTPATIEN 0 0 MONROE J MONROE J T NEW 30 MINUTES OFFICE 04724 REJI ALBARADO OUTPATIEN 0 0 MEDICAL DINAH R T VISIT CLINIC 25 MINUTES PERIODIC 70664 REJI ALBARADO, PREVENTIV 0 0 MEDICAL DINAH R E MED EST CLINIC PATIENT 12-17YRS OFFICE 74859 [place] GONZALO OUTPATINANCI 9 9 RICKEY GILLIAM A T VISIT INTERNAL 15 MED MINUTES HOSPITAL HATTIE Gong 9 9 CO [facility] T EMERGENCY 87286 HATTIE 9 9 [facility] T VISIT LOW/MODER SEVERITY EMERGENCY 05971 HATTIE JAIN 9 9 CO , [facility] T VISIT MODERATE SEVERITY HOSPITAL HATTIE Gong 9 9 CO [facility] T OFFICE 67281 [place] GONZALO OUTPATINANCI 9 9 RICKEY Da Silva T VISIT INTERNAL 15 MED MINUTES HOSPITAL HATTIE Gong 9 9 CO [facility] T OFFICE 79398 [place] JOHN OUTPATIEN 9 9 [facility], T VISIT INTERNAL MOODY F 15 MED MINUTES OFFICE 08004 [place] SIENA OUTPATINANCI 9 9 [place] [facility] T VISIT INTERNAL 10 MED MINUTES HOSPITAL HATTIE Gong 9 9 CO [facility] HATTIE Gong 9 9 CO [facility] T EMERGENCY 52231 HATTIE 8 8 [facility] T VISIT LIMITED/M INOR PROB HOSPITAL HATTIE - 8 8 [facility] T EMERGENCY 92837 HATTIE 8 8 [facility] T VISIT LIMITED/M INOR PROB HOSPITAL HATTIE - 8 8 [facility] T EMERGENCY 60100 HATTIE BLANK, 8 8 CO [facility] T VISIT LOW/MODER SEVERITY OFFICE 77700 KRYS UMAÑA 8 8 [facility] VISIT INTERNAL 10 MED MINUTES OFFICE 49831 INGE ALCAZAR, CONSULTAT 8 8 CHAD B CHAD B ION NEW/ESTAB PATIENT 40 MIN OFFICE 97447 KRYS UMAÑA 8 8 [place] [facility] VISIT INTERNAL 15 MED MINUTES
--- OUTSIDE RECORDS SUMMARY | 2017-09-01 10:10 | External Medical Summary Rpt | CCD ---
Author Author , SJ Organization SJ Address Unknown Phone .[facility] Care Team Providers Care Vice President Risk Management Name Role Phone [employer] Unavailable Unavailable INC, [employer] AHMED ADN, AHMED ADN Unavailable Unavailable AHMED ADN, AHMED ADN Unavailable Unavailable [facility] Unavailable [facility]available [facility] ALLRAN JR KASSANDRA, ALLRAN Unavailable Unavailable JR KASSANDRA LA[facility] AM[facility]LETT & Unavailable Unavailable AMBULANC, LA[facility] AM[facility]LE[facility] & AMBULANC LAO AMBULETT & Unavailable Unavailable AMBULANC, [facility] AMBULANC LUIS FERNANDO LES, LUIS FERNANDO Unavailable Unavailable LES LUIS FERNANDO LES, LUIS FERNANDO Unavailable Unavailable LES [facility] Unavailable Unavailable [place], [facility] Unavailable Unavailable MEDICAL GROUP, [facility] BEINEKE, BEINEKE Unavailable Unavailable BEINEKE NANI, BEINEKE Unavailable Unavailable NANI CURRAN AURORA, CURRAN Unavailable Unavailable AURORA BESSON, MANE A, Unavailable Unavailable BESSON, MANE A [employer] Unavailable Unavailable INC., [employer] LEZAMA, LEZAMA Unavailable Unavailable LEZAMA LASHON, LEZAMA LASHON Unavailable Unavailable [facility] Unavailable Unavailable [facility], [facility] PHYSICIAN Unavailable Unavailable PRACTICE L, [facility] [employer] Unavailable Unavailable CORBIN JAM, CORBIN JAM Unavailable Unavailable SCH[facility]-VISE, Unavailable Unavailable [facility] SCHMITZ-VISE SARAH, Unavailable Unavailable [facility] SARAH BUTROS MARISEL, BUTROS Unavailable Unavailable MARISEL [facility], Unavailable Unavailable [facility] PIERCE MARIANA, PIERCE Unavailable Unavailable MARIANA PIERCE MARIANA, PIERCE Unavailable Unavailable MARIANA [facility] Unavailable Unavailable [facility], [facility] Unavailable Unavailable [facility]OC, [facility] ANNE ALDEN, ANNE Unavailable Unavailable ALDEN CHATTHA SHANNON, CHATTHA Unavailable Unavailable [facility]ANN[facility] Unavailable Unavailable [facility], [facility] WAI BARNETT, AWI Unavailable Unavailable ANIBAL BARNETT, CARRENO Unavailable Unavailable [...] [facility] MCINTYRE, MCINTYRE Unavailable Unavailable [facility] Unavailable Unavailable GROUP PS, [facility] Unavailable Unavailable [facility], [facility], Unavailable [facility]available [facility] Unavailable Unavailable HOLD[facility], [facility] Unavailable Unavailable [facility], [facility] Unavailable Unavailable [facility], [facility] Unavailable Unavailable [facility]INGS, [facility], Unavailable Unavailable [facility] ADLER TONYA, ADLER Unavailable Unavailable TONYA [...] B MAUL PRANAV, MAUL PRANAV Unavailable Unavailable [facility] Unavailable Unavailable ASSOCIAT, [facility] MOODY LOPEZ JR Unavailable Unavailable F, JOHN RODRIGUEZ, MOODY F [facility] Unavailable Unavailable [facility]ARE [facility], [facility], MANAGER ROUTE [place] Unavailable Unavailable CO [facility], [facility] MANA[facility] R[facility]TE [place] [facility] MAYBERRY DARRION, MAYBERRY DARRION Unavailable Unavailable MAYBERRY DARRION, MAYBERRY DARRION Unavailable Unavailable [facility], Unavailable Unavailable [facility] HERBERTH EDW, HERBERTH Unavailable Unavailable EDW HERBERTH EDW, HERBERTH Unavailable Unavailable EDW MD STEPHEN CORTEZ, DIEGO, Unavailable Unavailable MD [facility], Unavailable Unavailable [facility] Unavailable Unavailable AMBULANCE SE, [facility] Unavailable Unavailable AMBULANCE SE, [facility] Unavailable Unavailable URGENT TREAT, [facility], Unavailable Unavailable PLLC, [facility] SCHULTE CHR, SCHULTE CHR Unavailable Unavailable SCHUL[facility] CH[facility], [facility] Unavailable Unavailable [facility] Unavailable Unavailable LAB, [facility] PICKJACIIMER RADAMES, Unavailable Unavailable [facility], [facility] PRAKASH MUH, PRAKASH Unavailable Unavailable MUH TEE JAIN, Unavailable Unavailable TEE JAIN JR. JAM, Unavailable Unavailable JR. LOTUS RICHARDS RUSSELL Unavailable Unavailable YESSENIA JEAN, YESSENIA Unavailable Unavailable MIRANDA ENGEL NANI, ENGEL Unavailable Unavailable NANI NILDA MIRANDA, NILDA MIRANDA Unavailable Unavailable SOKAN BAB, SOKAN BAB Unavailable Unavailable [facility], Unavailable Unavailable [facility] Unavailable Unavailable EQUIPME, [facility] Unavailable Unavailable EMERGENCY PHYS, [facility] SPIREK ANI, SPIREK Unavailable Unavailable ANI SPIREK ANI, SPIREK Unavailable Unavailable ANI SPIREK, MONROE J, Unavailable Unavailable SPIREK, [facility] J [facility] Unavailable Unavailable [facility], [facility] EVI MAR, EVI Unavailable Unavailable [facility] Unavailable Unavailable [facility], [facility] BROOKS DIOGENES, BROOKS Unavailable Unavailable DIOGENES SWINEY PAT, SWINEY Unavailable Unavailable PAT SWINEY PAT, SWINEY Unavailable Unavailable PAT TANOUS, JR EDW, Unavailable Unavailable TANOUS, JR EDW TANOUS, JR EDW, Unavailable Unavailable TANOUS, JR EDW ELADIO, ELADIO Unavailable Unavailable MONTILLA MOL, MONTILLA MOL Unavailable Unavailable [facility] Unavailable Unavailable LLC, [facility] MARYANN ALICIA, MARYANN Unavailable Unavailable ALICIA MARYANN ALICIA, MARYANN Unavailable Unavailable [facility], Unavailable Unavailable [facility] Unavailable [facility] [place] [facility], [facility] VILLAFLOR OSI, Unavailable Unavailable VILLAFLOR OSI VILLAFLOR OSI, Unavailable Unavailable VILLAFLOR OSI VORKPOR EMIGDIO, VORKPOR Unavailable Unavailable EMIGDIO VORKPOR EMIGDIO, VORKPOR Unavailable Unavailable EMIGDIO [facility] Unavailable Unavailable #[id number], [id number] # Unavailable Unavailable [id number], [facility] # [id number] [facility] Unavailable [facility]available DEPT KIERA, [facility] DE[facility], [facility] YONGBANG ALB, Unavailable Unavailable [...] OTHER [facility] NONSPECIFIC ASSOC OF SKIN ERUPTION [id number] ADVERS EFF 08-01-2017 [facility] MED[facility] BIO ASSOC OF SUBSTANCES INIT ENC [id number] ANAPHYLACTI 08-01-2017 [facility] C SHOCK AST[facility] UNSPECIFIED ASSOC OF INITIAL ENCOUNTER J029 ACUTE 06-27-2017 [facility] PHARYNGITIS CLINIC UNSPECIFIED J4521 MILD 06-27-2017 [facility] INTERMITTEN CLINIC T ASTHMA WITH ACUTE EXACERBATIO N R198 OTH SPEC SX 06-13-2017 [facility] INVLV THE [place] DIGESTV SYS & ABD B67586 ENCOUNTER 06-07-2017 [facility] SOIL EXPERT EXAM DISTRICT GENERAL RTN HLTH DEPT W/O [...] TEST RESULT KIERA NEGATIVE R5383 OTHER 06-06-2017 [facility] FATIGUE [facility] [place] Z0000 ENCOUNTER 06-06-2017 [facility] GEN ADULT HEALTH MED EXAM [place] W/O ABNORMAL FIND K5900 CONSTIPATIO 05-16-2017 [facility] [place] RADIOLOGY UNSPECIFIED R109 UNSPECIFIED 05-16-2017 [facility] R197 DIARRHEA 05-16-2017 [facility] [place] UNSPECIFIED RADIOLOGY R8290 UNSPECIFIED 05-16-2017 LAB [facility] ABNORMAL ELIZABETH FINDINGS IN HOLDINGS URINE B4179OO TOX EFF 02-08-2017 [facility]B [facility] UNS SOURCE GROUP ACC INITIAL ENC H89856 MIGRAINE 02-07-2017 [facility] UNS NOT EMERGENCY INTRACT W/O PHYS PSC STATUS MIGRAINOSUS K74460 UNSPECIFIED 02-07-2017 [facility] ASTHMA HEALTH UNCOMPLICAT [place] ED K589 IRRITABLE 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 [place] WITHOUT DIARRHEA M4606 SPINAL 02-07-2017 NONA ENTHESOPATH Y LUMBAR REGION M545 LOW BACK 02-07-2017 NONA PAIN C49180 MUSCLE 02-07-2017 NONA SPASM OF BACK M9903 SEGMENTAL & 02-07-2017 NONA SOMATIC DYSFUNCTION OF LUMBAR REGION M9904 SEGMENTAL & 02-07-2017 NONA SOMATIC DYSFUNCTION OF SACRAL REGION R1110 VOMITING 02-07-2017 BRUNO FAYETTE UNSPECIFIED URBAN COGOVT R410 DISORIENTAT 02-07-2017 BRUNO F[place]ETTE ION URBAN UNSPECIFIED COGOVT R4182 ALTERED 02-07-2017 [facility] STATUS ASSOC UNSPECIFIED R51 HEADACHE 02-07-2017 BRUNO FAYETTE URBAN COGOVT R569 UNSPECIFIED 02-07-2017 [facility] CONVULSIONS [place] [id number] STRAIN 02-07-2017 NONA MUSCLE FASCIA & TENDON LOW BACK INITIAL Z833 FAMILY 02-07-2017 [facility] HISTORY OF HEALTH DIABETES [place] MELLITUS Z880 ALLERGY 02-07-2017 [facility] STATUS TO HEALTH PENICILLIN [place] Z888 ALLERGY 02-07-2017 [facility] STATUS OT HEALTH RX MEDS & [place] BIOLOG SUBSTANC STS J101 FLU D/T OTH 01-17-2017 [facility] ID FLU CLINIC VIRUS OTH RESP MANIFESTATI ONS R05 COUGH 01-17-2017 [facility] J209 ACUTE 12-24-2016 [facility] BRONCHITIS [facility] UNSPECIFIED INC J40 BRONCHITIS 12-24-2016 [facility] NOT PHYSICIANS, SPECIFIED PLLC ACUTE OR CHRONIC Z7689 PERSONS 12-15-2016 [facility]TER [facility] DEPT OTH KIERA CIRCUMSTANC ES J020 STREPTOCOCC 12-10-2016 [facility] AL CLINIC PHARYNGITIS U62339 PAIN IN 10-23-2016 [facility] RIGHT N EMERGENCY SHOULDER PHYS Z06967 PAIN IN 10-23-2016 [facility] [place] RIGHT ELBOW RADIOLOGY Y42881 PAIN IN 10-23-2016 [facility] [place] RIGHT KNEE RADIOLOGY R0781 PLEURODYNIA 10-23-2016 [facility]0789 OTHER CHEST 10-23-2016 [facility] [place] PAIN RADIOLOGY V19984H ABRASION OF 10-23-2016 [facility] RIGHT N EMERGENCY ELBOW PHYS INITIAL ENCOUNTER [id number] ABRASION 10-23-2016 [facility] RIGHT KNEE N EMERGENCY INITIAL PHYS ENCOUNTER E83337 OTHER LONG 10-23-2016 [place] CURRENT HOSPITAL DRUG THERAPY L299 PRURITUS 07-01-2016 [...] AGE R040 EPISTAXIS 06-07-2016 [facility] [place] RADIOLOGY E9375EF CONTUSION 06-07-2016 [facility] NOSE N EMERGENCY [...] LAB [facility]ANT[facility]ETH HOLDINGS K219 GASTRO-ESOP 04-28-2016 [facility] REFLUX ANESTHESIA DISEASE GROUP PS WITHOUT ESOPHAGITIS A0839 OTHER VIRAL 01-15-2016 [facility] ENTERITIS [facility] URGENT TREAT J4530 MILD 01-15-2016 [facility] ASTHMA URGENT UNCOMPLICAT TREAT ED 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 KIERA J028 ACUTE 11-24-2015 [facility] PHARYNGITIS [facility] DUE TO URGENT OTHER SPEC TREAT ORGANISMS J4522 MILD 11-24-2015 [facility] T ASTHMA URGENT WITH STATUS TREAT ASTHMATICUS R062 WHEEZING 11-24-2015 [facility] URGENT TREAT R102 PELVIC AND 10-17-2015 VORKPOR EMIGDIO PERINEAL PAIN D529 FOLATE 09-10-2015 [facility] DEFICIENCY DISTRICT ANEMIA HLTH DEPT UNSPECIFIED KIERA Z23 ENCOUNTER 09-10-2015 [facility] FOR DISTRICT IMMUNIZATIO HLTH DEPT N KIERA R1310 DYSPHAGIA 09-05-2015 EAR, NOSE UNSPECIFIED AND THROAT SPECIAL R1313 DYSPHAGIA 09-01-2015 [facility] PHARYNGEAL [facility] PHASE URGENT TREAT 5589 OTH&UNSPEC 06-14-2015 RANI BEAL NONINFECTIO US GASTROENTER ITIS&COLITI S 75863 NAUSEA WITH 06-14-2015 [facility] [place] VOMITING RADIOLOGY 27792 ABDOMINAL 06-14-2015 RANI BEAL PAIN RIGHT LOWER QUADRANT V2549 SURVEILLANC 06-10-2015 [facility] E OTH PREV DISTRICT PRSC [facility] DEPT CONTRACEPT KIERA METHOD V2689 OTHER 06-10-2015 [facility] SPECIFIED DISTRICT PROCREATIVE [facility] DEPT MANAGEMENT KIERA 71275 ASTHMA, 05-08-2015 [facility] UNSPECIFIED [facility] HOS[facility] , INC UNSPECIFIED STATUS 28562 UNSPECIFIED 05-08-2015 [facility] SITE OF PHYSICIANS, ANKLE PLLC SPRAIN AND STRAIN 2299 BENIGN 05-06-2015 [place] NEOPLASM OF [facility] HOSPITAL UNSPECIFIED SITE 5990 URINARY 05-06-2015 SWINEY PAT TRACT INFECTION SITE NOT SPECIFIED 6202 OTHER AND 05-06-2015 SW[facility] PAT UNSPECIFIED OVARIAN CYST 27580 ABDOMINAL 05-06-2015 [place] PAIN, COMMUNITY UNSPECIFIED HOSPITAL SITE 7919 OTHER 05-06-2015 [place] NONSPECIFIC COMMUNITY FINDING HOSPITAL EXAMINATION OF URINE V140 PERSONAL 05-06-2015 [place] HISTORY OF COMMUNITY ALLERGY TO HOSPITAL PENICILLIN V1582 PERS HX 05-06-2015 [place] TOBACCO USE COMMUNITY PRESENTING HOSPITAL HAZARDS HEALTH 58634 PAIN IN 02-22-2015 [facility] [place] JOINT RADIOLOGY PELVIC REGION AND THIGH 37222 CHEST PAIN 02-22-2015 [place] UNSPECIFIED [facility] AMBULANCE SE 8470 NECK SPRAIN 02-22-2015 [facility] EDW AND STRAIN 8472 LUMBAR 02-22-2015 [facility] EDW SPRAIN AND STRAIN 9221 CONTUSION 02-22-2015 [facility] EDW OF CHEST WALL 9222 CONTUSION 02-22-2015 [facility] EDW OF ABDOMINAL WALL 26590 INJURY OF 02-22-2015 [facility] [place] FACE AND RADIOLOGY NECK OTHER AND UNSPECIFIED 18385 OTHER 02-22-2015 [facility] [place] INJURY OF RADIOLOGY OTHER SITES OF TRUNK 3688 OTHER 02-03-2015 [place] SPECIFIED MEDICAL VISUAL IMAGING ASS DISTURBANCE S 7231 CERVICALGIA 02-03-2015 [facility] 6259 UNSPEC 12-19-2014 [facility] [place] SYMPTOM RADIOLOGY ASSOC W/FEMALE GENITAL ORGANS 12130 ABDOMINAL 12-19-2014 [place] TENDERNESS [facility] RIGHT LOWER HOSPITAL QUADRANT V1329 PERSONAL HX 12-19-2014 [facility] SYSTEM&OBST ETRIC D/O 7804 DIZZINESS 12-11-2014 [facility] AND CLINIC GIDDINESS 40448 ACUTE 12-03-2014 IN[facility] SEROUS CHAD OTITIS MEDIA 4770 ALLERGIC 12-03-2014 IN[facility] RHINITIS CHAD DUE TO POLLEN 4778 ALLERGIC 12-03-2014 INGE RHINITIS CHAD DUE TO OTHER ALLERGEN 97102 EXTRINSIC 12-03-2014 INGE ASTHMA, CHAD WITH EXACERBATIO N 0088 INTESTINAL 11-01-2014 HOUSM[facility] SOY INFECTION DUE TO OTHER ORGANISM NEC 73221 DIARRHEA 11-01-2014 [facility] SOY 5362 PERSISTENT 10-31-2014 KABA SATYA VOMITING 95549 SHORTNESS 10-27-2014 [place] [facility] MEDICAL IMAGING ASS 75151 ASTHMA 10-24-2014 [facility] UNSPECIFIED CLINIC WITH EXACERBATIO N 86505 UNSPECIFIED 10-23-2014 [facility] SLEEP PRIMARY DISTURBANCE CARE CLI 64744 INSOMNIA 10-23-2014 [facility] ADULT UNSPECIFIED PRIMARY CARE CLI 3829 UNSPECIFIED 10-15-2014 [facility] OTITIS ELIZABETH MEDIA HOLDINGS 462 ACUTE 10-15-2014 [facility] PHARYNGITIS [facility] HOLDINGS 79251 GENERALIZED 10-15-2014 [facility] PAIN ELIZ[facility] HOLDINGS 0549 HERPES 10-10-2014 [facility] WITHOUT [place] [facility] MENTION OF COMPLICATIO N 0340 STREPTOCOCC 10-09-2014 [facility] AL SORE CLINIC THROAT 23488 UNSPECIFIED 09-30-2014 [facility] INFECTIVE CLINIC OTITIS EXTERNA 7862 COUGH 09-30-2014 [facility] 4779 ALLERGIC 08-22-2014 [facility] RHINITIS PRIMARY CAUSE CARE CLI UNSPECIFIED 7245 UNSPECIFIED 08-22-2014 [facility]ULT BACKACHE PRIMARY CARE CLI 7177 CHONDROMALA 08-14-2014 [facility] S SPORT 57527 PAIN IN 08-10-2014 [facility] JOINT, [place] AUSTEN 72182 PAIN IN 07-30-2014 [place] JOINT, MEDICAL SHOULDER IMAGING ASS REGION 8409 SPRAIN&STRA 07-30-2014 FLAVIO JANA IN UNSPEC SITE SHOULDER&UP PER ARM E9288 OTHER 07-30-2014 FLAVIO JANA ACCIDENT 34272 SPRAIN AND 07-12-2014 SCHULTE CHR STRAIN OF DELTOID OF ANKLE 61067 UNSPECIFIED 06-11-2014 LUIS FERNANDO LES TINNITUS 11168 SUBJECTIVE 06-11-2014 [place] TINNITUS PHYSICIAN PRACTICE L 3899 UNSPECIFIED 06-11-2014 [place] HEARING PHYSICIAN LOSS PRACTICE L 55683 UNSPECIFIED 06-06-2014 [place] VAGINITIS CLINIC AND VULVOVAGINI TIS 7821 RASH AND 06-06-2014 [place] OTHER CLINIC NONSPECIFIC SKIN ERUPTION 51936 UNSPECIFIED 05-31-2014 [facility] OTALGIA CLINIC 85558 PAIN IN 05-31-2014 [place] JOINT, CLINIC ANKLE AND FOOT 50251 OTHER 02-25-2014 INGE CHRONIC CHAD ALLERGIC CONJUNCTIVI TIS 27201 EXTRINSIC 02-25-2014 INGE ASTHMA, CHAD UNSPECIFIED 7840 HEADACHE 02-13-2014 [place] 4659 ACUTE URIS 02-01-2014 ASTRID NAN OF UNSPECIFIED SITE V202 ROUTINE 01-14-2014 [place] CHILD HEALTH CHECK 08634 WHEEZING 12-20-2013 [place] ANIBAL V0481 NEED 12-06-2013 [place] PROPHYLACT [place] C VACCINATION &INOCULATIO N FLU 10522 UNSPECIFIED 11-08-2013 [place] ACUTE [place] NONSUPPURAT MORENITA OTITIS MEDIA 4772 ALLERGIC 11-05-2013 [facility] RHINITIS CHAD DUE TO ANIMAL HAIR AND DANDER V727 DIAGNOSTIC 11-05-2013 IN[facility] SKIN AND CHAD SENSITIZATI ON TESTS 7295 PAIN IN 10-30-2013 [facility], SOFT MANAGER ROUTE TISSUES OF [place] [facility]OS 7823 EDEMA 10-30-2013 [facility], MANAGER ROUTE [place] HOS 7881 DYSURIA 10-30-2013 [place] 9599 INJURY 10-30-2013 HAGENSCHNEI OTHER AND CARLOS LASHON UNSPECIFIED UNSPECIFIED SITE 96887 ACUT 10-11-2013 INGE SUPPRATV CHAD OTITIS MEDIA W/O SPONT RUP EARDRUM V720 EXAMINATION 10-11-2013 DRE[facility] OF EYES GRE AND VISION 75340 DISORDERS 10-09-2013 ASTRID NAN OF SOFT TISSUE UNSPECIFIED 4739 UNSPECIFIED 09-20-2013 [facility] SINUSITIS CHAD 26974 EXTRINSIC 09-20-2013 IN[facility] ASTHMA WITH CHAD STATUS ASTHMATICUS 00847 OBESITY, 09-07-2013 [facility] 32745 CHRONIC 09-07-2013 JR TANIA CHOLECYSTIT EDW IS 5758 OTHER 09-07-2013 [facility] ANT SPECIFIED DISORDER OF GALLBLADDER 5759 UNSPECIFIED 09-04-2013 [place] DISORDER [facility] GALLBLADDER V7284 UNSPECIFIED 09-04-2013 [facility] VE EXAMINATION 19694 ABDOMINAL 08-08-2013 RUSSEL RHO PAIN RIGHT UPPER QUADRANT 84941 VOMITING 07-28-2013 [facility], ALONE MANAGER ROUTE [facility] HOS 486 PNEUMONIA, 06-20-2013 [facility] ORGANISM CARLOS LASHON UNSPECIFIED 4660 ACUTE 06-18-2013 PIERCE MARIANA BRONCHITIS 2150 OTH HANK 04-10-2013 ADLER TONYA NEOPLSM CNCTV&OTH SFT TISS HEAD FCE&NCK 51608 NEOPLASMS 04-10-2013 HOW[facility] JANA UNSPECIFIED NATURE OTH SPECIFIED SITES 78830 ESOPHAGEAL 04-10-2013 [facility] 7856 ENLARGEMENT 04-10-2013 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 7822 LOCALIZED 03-13-2013 [place] [facility] SWELLING MASS OR LUMP 7831 ABNORMAL 02-28-2013 [facility], WEIGHT GAIN MANAGER ROUTE [facility] HOS 7842 SWELLING 02-28-2013 [facility], MASS OR [facility] LUMP IN [facility] HEAD AND HOS NECK V770 SCREENING 02-28-2013 [facility], FOR THYROID MANAGER ROUTE DISORDER [facility] HOS V771 SCREENING 02-28-2013 [facility], FOR MANAGER ROUTE DIABETES [facility] MELLITUS HOS 6119 UNSPECIFIED 12-07-2012 MARYANN ALICIA BREAST DISORDER 6262 EXCESSIVE 12-07-2012 MARYANN ALICIA OR FREQUENT MENSTRUATIO N 38659 OTHER 12-07-2012 MARYANN ALICIA MALAISE AND FATIGUE 66742 HEAD 11-08-2012 LAO INJURY, AMBULETT & UNSPECIFIED AMBULANC 7291 UNSPECIFIED 11-01-2012 AHMED ADN MYALGIA AND MYOSITIS 38035 ABDOMINAL 11-01-2012 AHMED ADN PAIN OTHER SPECIFIED SITE 17909 EOSINOPHILI 09-19-2012 [facility] C MANUEL ESOPHAGITIS 2883 EOSINOPHILI 08-28-2012 [facility] HOSPI 5368 DYSPEPSIA&O 08-28-2012 [facility] DISORDERS FUNCTION STOMACH 5379 UNSPECIFIED 08-28-2012 [facility] AND DUODENUM 5699 UNSPECIFIED 08-28-2012 [facility] INTESTINE 47182 NAUSEA 08-28-2012 [facility] 99767 ABDOMINAL 08-28-2012 [place] [facility], LEFT SERVICES LOWER QUADRANT 65922 ABDOMINAL 08-28-2012 [place] [facility], HOSPITAL GENERALIZED V643 PROCEDURE 08-27-2012 [facility], NOT CARRIED MANAGER ROUTE OUT FOR [place] TELLO OTHER HOS REASONS 70641 SWELLING OF 08-25-2012 [facility], LIMB MANAGER ROUTE [place] HOS E8809 ACCIDENTAL 08-25-[facility] F[facility] OR RADIOLOGY FROM OTHER ASSOCIAT STAIRS OR STEPS E8889 UNSPECIFIED 08-25-2012 AHMED ADN FALL 4610 ACUTE 08-01-2012 [facility] MAXILLARY SINUSITIS 24002 OPEN WOUND 03-07-2012 [place] TELLO LIP WITHOUT HOSPITAL MENTION COMPLICATIO N E8490 PLACE OF 03-07-2012 [place] TELLO OCCURRENCE, HOSPITAL HOME E8888 OTHER FALL 03-07-2012 [place] [facility] 6200 FOLLICULAR 12-27-2011 YOUNG JR CYST OF [place] OVARY 3814 NONSUPPRATV 12-10-2011 JEFE DARRION OTITIS MEDIA NOT SPEC ACUT/CHRON V7231 ROUTINE 11-29-2011 PATHOLOGY & GYNECOLOGIC CYTOLOGY AL LAB EXAMINATION 4619 ACUTE 11-25-2011 JEFE DARRION SINUSITIS, UNSPECIFIED 44065 URINARY 11-25-2011 MAYBERRY DARRION FREQUENCY 6260 ABSENCE OF 10-13-2011 LAB AFNTA MENSTRUATIO AMERIC [facility] [employer] 10619 PAIN IN 10-01-2011 [place] JOINT, RADIOLOGY UPPER ARM ASSOCIAT 88927 CONTUSION 10-01-2011 [facility] OF [facility] 9593 INJURY 10-01-2011 [place] OTHER&UNSPE RADIOLOGY CIFIED ASSOCIAT [facility] [facility] 6252 MITTELSCHME 09-19-2011 [facility] R[facility] OSI 53737 PAIN IN 06-16-2011 [place] JO[facility], HAND RADIOLOGY ASSOCIAT 7937 NONSPC ABN 06-16-2011 [place] FINDNG RAD RADIOLOGY & OTH EXM ASSOCIAT MUSCUL[place]ELT L SYS 76459 CLOS 06-16-2011 [facility] MID/PROXIMA L PHALANX/PHA LANG HAND 36911 SPRAIN AND 06-16-2011 [facility] TELLO STRAIN OF HOSPITAL UNSPECIFIED SITE OF HAND 07545 CONTUSION 06-16-2011 [facility] 9594 INJURY 06-16-2011 [place] OTHER AND RADIOLOGY UNSPECIFIED ASSOCIAT HAND EXCEPT FINGER E9270 OVEREXERTIO 06-16-2011 [facility] TELLO N FROM HOSPITAL SUDDEN STRENUOUS MOVEMENT 6253 DYSMENORRHE 10-21-2010 [facility] ANI A 4658 ACUTE URIS 10-13-2010 ROSAMARIA [place] OF OTHER MULTIPLE SITES 4871 INFLUENZA 10-13-2010 [facility] TELLO WITH OTHER HOSPITAL RESPIRATORY MANIFESTATI ONS 63080 OTHER 10-13-2010 [place] ASCITES RADIOLOGY ASSOCIAT E8496 PLACE OF 04-13-2010 [facility] PUBLIC [facility] E9175 STRIKE 04-13-2010 [facility] K ACC OTH OBJ SPORTS W/FALL 2564 POLYCYSTIC 02-05-2010 [facility] GUPTA 5950 ACUTE 02-03-2010 [facility] 6268 OTH D/O 12-10-2009 [facility]&OTH ABN CLINIC BLEED FE GNT TRACT 93802 UNSPECIFIED 06-24-2009 [facility] BINOC[facility] VISION ANDLEARNING DISORDER 77805 NYSTAGMUS 06-24-2009 [facility] W/DEFIC VISION SMOOTH ANDLEARNING PURSUIT MOVEMENTS 9063 LATE EFFECT 05-26-2009 [facility] TELLO OF HOSPITAL CONTUSION 31906 CONTUSION 05-25-2009 [facility] TELLO OF [facility] E8499 UNSPECIFIED 05-25-[address] HOSP[facility] OCCURRENCE E8859 FALL FROM 05-25-2009 [facility] TELLO OTHER HOSPITAL SLIPPING TRIPPING OR STUMBLING 89474 VISUAL 04-01-2009 [facility] 01143 MIGRAINE 04-17-2008 [facility] TELLO W/O [facility] W/O INTRACT W/O STAT MIGRNOSUS 50874 EFFUSION OF 03-30-2008 [place] ANKLE AND RADIOLOGY FOOT JOINT ASSOCIATES PSC 7812 ABNORMALITY 03-30-2008 H[facility] TELLO OF [facility] 845 SPRAINS AND 03-30-2008 [facility] TELLO STRAINS OF HOSPITAL ANKLE AND FOOT 9160 HIP THI 03-30-2008 [facility] TELLO [facility] ABRASION/FR ICION BURN W/O INF 9170 ABRASION/FR 03-30-2008 [facility] TELLO ICTION [facility] FOOT&TOE W/O MENTION INF 30708 CONTUSION 03-30-2008 [facility] V642 SURG/OTH 03-30-2008 [facility] TELLO PROC NOT HOSPITAL CARRIED OUT BECAUSE PTS DECN 460 ACUTE 12-22-2007 [facility]OP[facility]ARYNG [facility] ITIS INTERNAL MED 4780 HYPERTROPHY 12-18-2007 INGE, OF NASAL CHAD B TURBINATES 9953 ALLERGY 12-08-2007 [facility] UNSPECIFIED VALLEY NOT INTERNAL ELSEWHERE MED CLASSIFIED 5184 UNSPECIFIED 02-22-2007 [facility] EDEMA OF PEDIA LUNG 5839 NEPHRITIS&N 02-22-2007 [facility] NOT AC/CHRN PEDIA W/UNS PATHAL LES Allergies, [...] 34 7- 1- 00 01 UC ve [place] 59 20 20 04 [place] ED 31 [...] 06 07 30 30 00 KE Ac IL 37 -2 -2 .0 00 NT ti [...] 80 6- 8- 00 01 UC ve IL 01 20 20 03 [place] AM 00 [...] PH AR MA CY #3 01 6 IL 00 05 06 60 30 00 KE [...] 80 2- 6- 00 01 UC ve IL 01 20 20 03 [place] AM 00 [...] 80 0- 8- 00 01 UC ve IL 01 20 20 01 [place] AM 00 [...] 01 KY ZA 11 17 17 27 IL 0 45 CV IN S E PH 10 AR MA MG CY TA LL BL C, ET DB A CV S PH AR MA CY #3 01 6 NA 65 03 04 28 14 00 KE Ac IL 16 -1 -0 .0 00 NT ti [...] 10 7- 4- 00 01 UC ve AR 47 20 20 00 [place] 01 17 17 83 R 3 83 CV PH S OS PH AR 75 MA CY MG LL CA C, PS UL DB E A CV S PH AR MA CY #3 01 6 IL 00 02 03 10 5 00 KE [...] 1% 46 11 11 FA TH 0 AR AN SH LY L AM PO DR O UG MA 51 04 04 0 59 1 SO 37 WH Ac LA 67 -1 -1 .0 PE 09 EE ti TH 25 3- 3- 00 RS 00 LE ve IO 27 20 20 R N 70 11 11 FA KR 0. 4 AR IS 5% LY TI E LO DR [...] 0 30 15 WA 70 WH Ac IL 74 -1 -1 .0 L- 55 EE [...] JR IN 26 10 10 FA 7 AR CH 1% LY ES TE LO DR R TI UG R ON PE 00 11 11 1 59 2 SO 35 YO Ac RM 47 -0 -0 .0 PE 68 UN ti ET 25 8- 8- 00 RS 56 G ve HR 24 20 20 JR IN 26 10 10 FA 7 AR CH 1% LY ES TE LO DR [...] 00 7. 7 SO 30 JU Ac IL 06 -3 -0 50 PE 97 DY ti OD 58 0- 9- 0 RS 96 ve EX 53 20 20 NA 30 09 09 FA TA OT 2 AR LI IC LY E E MARIE DR SP UG EN SI ON 59 03 04 00 20 10 SO 30 JU Ac 76 -3 -0 .0 PE 97 DY ti 22 0- 9- 00 RS 95 ve 18 20 20 NA 00 09 09 FA TA 1 AR LI LY E E DR KEN IL 60 03 03 00 12 5 SO 30 HU Ac OM 43 -1 -2 0. PE 86 NT ti ET 20 7- 6- 00 RS 30 ER ve NAILS 60 20 20 0 ZI 41 09 09 FA NA NE 6 AR NC -D LY Y M C SY RU UG P TA 00 03 03 00 10 5 SO 30 HU Ac AR 00 -1 -2 .0 PE 86 NT ti FL 40 7- 6- 00 RS 44 ER ve U 80 20 20 75 08 09 09 FA NA 5 AR NC MG LY Y C CA DR PS UG UL E 60 01 01 00 12 3 SO 30 HU Ac 25 -1 -3 0. PE 32 NT ti 80 3- 0- 00 RS 84 ER ve 23 20 20 0 91 09 09 FA NA 6 AR NC LY Y C DR UG IL 50 01 01 00 60 30 SO 30 HU Ac OP 11 -1 -3 .0 PE 32 NT ti RA 10 3- 0- 00 RS 85 ER ve NO 46 20 20 LO 70 09 09 FA NA L 1 AR NC 10 LY Y C MG DR UG TA BL ET AB 59 01 01 00 45 30 SO 30 HU Ac IL 14 -1 -3 .0 PE 32 NT ti IF 80 3- 0- 00 RS 87 ER ve Y 00 20 20 5 71 09 09 FA NA MG 3 AR NC LY Y TA C BL DR ET UG 17 06 06 00 15 15 SO 28 No Ac 31 -0 -1 .0 PE 58 t ti 45 5- 2- 00 RS 89 Av ve 85 20 20 ai 10 08 08 FA la 2 AR bl LY e DR UG AB 59 06 06 00 15 30 SO 28 No Ac IL 14 -0 -1 .0 PE 58 t ti IF 80 5- 2- 00 RS 88 Av ve Y 00 20 20 ai 5 71 08 08 FA la MG 3 AR bl LY e TA BL ET UG 63 01 03 00 20 10 SO 27 No Ac 30 -2 -2 .0 PE 41 t ti 40 8- 6- 00 RS 14 Av ve 75 20 20 ai 12 08 08 FA la 0 AR bl LY e DR UG 00 03 00 30 30 SO 27 No Ac 09 -2 -2 .0 PE 41 t ti 51 8- 6- 00 RS 15 Av ve 29 20 20 ai 00 08 08 FA la 6 AR bl LY e DR UG NA 00 01 03 00 17 30 SO 27 No Ac SO 08 -2 -2 .0 PE 41 t ti NE 51 8- 6- 00 RS 12 Av ve X 28 20 20 ai 50 80 08 08 FA la 1 AR bl MC LY e G NA DR SA UG L SP RA Y 17 01 03 00 30 30 SO 27 No Ac 31 -2 -2 .0 PE 34 t ti 45 1- 5- 00 RS 51 Av ve 85 20 20 ai 10 08 08 FA la 2 AR bl LY e DR UG AB 59 01 03 00 45 30 SO 27 No Ac IL 14 -2 -2 .0 PE 34 t ti IF 80 1- 5- 00 RS 53 Av ve Y 00 20 20 ai 5 71 08 08 FA la MG 3 AR bl LY e TA BL DR ET UG [place] 50 01 03 00 60 30 SO 27 No Ac OP 11 -1 -2 .0 PE 33 t ti RA 10 8- 5- 00 RS 47 Av ve NO 46 20 20 ai LO 70 08 08 FA la L 1 AR bl [address] UG TA BL ET Immunization Name Date Rout CVX Reac Dose Comm Prov Is Faci e tion ent ider Refu lity Give sed n IIV3 11-21 141 HAMI No HAMI 6-20 LTON LTON VACC 14 [place] INE SPLI T VIRU [place] S 0.5 [...] (06-07-2017 13:00) COLLECT CARYN complet OR 017 BROSELEY ed 13:00 , RN ETHNICI WHITE, complet TY 017 NON-HIS ed 13:00 PANIC KIT complet EXPIRAT 017 017 ed ION 13:00 DATE SYMPTOM NO complet S 017 ed 13:00 REASON REVISIT complet FOR 017 /ANNUAL ed REQUEST 13:00 FAMILY PLANNIN G VISIT SPECIME URINE complet N 017 ed SOURCE 13:00 PREGNAN NO complet T 017 ed 13:00 CHART [id number] complet NUMBER 017 35 ed 13:00 Chlamyd [...] 16:00) COLLECT S.JOSE complet OR 017 , embedded software test engineer 16:00 ETHNICI WHITE, complet TY 017 NON-HIS [...] 16:00) COLLECT S.JOSE complet OR 017 , embedded software test engineer 16:00 ETHNICI WHITE complet TY 017 NON-HIS [...] PT/J complet OR 016 WEINER ed 10:30 BOARD CERTIFIED FAMILY PHYSICIAN ETHNICI 06-09-2 WHITE, complet TY 016 NON-HIS [...] PT/M. complet OR 015 MILLS ed 14:35 BOARD CERTIFIED FAMILY PHYSICIAN ETHNICI 06-10-2 WHITE, complet TY 015 NON-HIS [...] Procedure DOS Code Location Performer Comment IAADIADOO 62790 VELIA BARCENAS [address] [place] [address] ANABAPTISM ANABAPTISM ABDOMINAL 7 HEALTH HEALTH REAL [facility] TIME W/IMAGE DOCUMENTA TION IADNA 35117 [facility] DEPT HLTH DEPT GONORRHOE KIERA KIERA AE AMPLIFIED PROBE TQ INJECTION J1050 [facility] MEDROXYPR HLTH DEPT HLTH DEPT OGESTERON KIERA KIERA E ACETATE 1 MG IADNA 55305 [facility] CHLAMYDIA [facility] DEPT HLTH DEPT TRACHOMAT KIERA KIERA IS AMPLIFIED PROBE TQ URINE 12161 [facility] TEST HLTH DEPT HLTH DEPT VISUAL KIERA KIERA COLOR CMPRSN METHS CYANOCOBA 57256 ANABAPTISM ANABAPTISM [address] HEALTH VITAMIN [facility] B-12 HEMOGLOBI 08538 ANABAPTISM ANABAPTISM [address] HEALTH GLYCOSYLA [facility] DOROTHY A1C GENERAL [address] [place] [address] HEALTH HEALTH PANEL [facility] LIPID 59377 ANABAPTISM ANABAPTISM PANEL [address] [place] [address] CULTURE 85742 [facility] BACTERIAL 7 ELIZABETH ELIZABETH HOLDINGS HOLDINGS QUANTTATI VE COLONY COUNT URINE RADEX 50199 [facility]EN [address] [place] [address] ANTEROPOS TERIOR VIEW INJECTION J1050 [facility] MED[facility]XYPR HLTH DEPT HLTH DEPT OGESTERON KIERA KIERA E ACETATE 1 MG INITIAL 87336 ANABAPTISM ADRIEL SEGOVIA 7 HEALTH ON MEDICAL CARE/DAY GROUP 70 MINUTES CHIROPRAC 10638 NONA NONA TIC 7 MANIPULAT [place] SPINAL 1-2 REGIONS AMB A0427 BRUN[facility] BRUNO SERVICE 7 FAYETTE FAYETTE ALS URBAN URBAN EMERGENCY [place] [address] CENTRAL BROSELEY HEAD/BRAI 7 RADIOLOGY N W/O ASSOC CONTRAST MATERIAL GROUND A0425 BRUNO BRUNO MILEAGE 7 FAYETTE FAYETTE PER URBAN URBAN STATUTE COGOVT COGOVT MILE APPL 20910 NONA NONA MODALITY 7 1/> AREAS ULTRASOUN D EA 15 MIN [facility] G0378 ANABAPTISM [facility] HE[facility] ON [facility] SERVICE PER HOUR APPL 89752 NONA NONA MODALITY 7 1/> AREAS ELEC STIMJ UNATTENDE D APPL 98063 NONA NONA MODALITY 7 1/> AREAS ELEC STIMJ UNATTENDE D APPL 21670 NONA NONA MODALITY 7 1/> AREAS ULTRASOUN D EA 15 MIN CHIROPRAC 10999 NONA NONA TIC 7 MANIP[place]AT [place] SPINAL 1-2 REGIONS CHIROPRAC 87847 NONA NONA TIC 7 MANIPULAT [place] SPINAL 1-2 REGIONS APPL 19450 NONA NONA MODALITY 7 1/> AREAS ULTRASOUN D EA 15 MIN APPL 59175 NONA NONA MODALITY 7 1/> AREAS ELEC STIMJ UNATTENDE D IAADIADOO 30609 VELIA BARNETT [address] [place] [address] MIMI LE STREPTOCO 7 [facility] CCUS INC INC GROUP A IAADI 48836 MIMI LE INFLUENZA 7 [facility] B VIRUS INC INC IAADI 74050 MIMI LE INFFLUENZ 7 [facility] A A VIRUS INC INC RADIOLOGI 21974 [facility] C EXAM 7 MEDICAL CHEST 2 IMAGING VIEWS ASS FRONTAL&L ATERAL CUL BACT 58728 MIMI LE XCPT 7 [facility] URINE INC INC BLOOD/STO OL AEROBIC ISOL IADNA 16040 VANNESSACO VANNESSACO CHLAMYDIA 7 [facility] DEPT [facility] DEPT TRACHOMAT KIERA KIERA IS AMPLIFIED PROBE TQ INJECTION J1050 [facility] MEDROXYPR [facility] DEPT [facility] DEPT OGESTERON KIERA KIERA E ACETATE 1 MG IADNA 06163 BANDAR PORTILLO NEISSERIA 7 [facility] DEPT [facility] DEPT GONORRHOE KIERA KIERA AE AMPLIFIED PROBE TQ ANTIBODY 25899 VANNESSAWI VANNESSACO TREPONEMA 7 [facility] PALLIDUM [facility] DEPT [facility] DEPT KIERA KIERA IAADIADOO 00259 VELIA LEZAMA 7 [facility] CCUS GROUP A RADIOLOGI 01277 [facility] C [address] [place] [address] ON KNEE 3 VIEWS RADEX 79534 [facility] RIBS [address] [place] [address] L 2 VIEWS RADEX 39517 [facility] ELBOW [address] [place] [address] MINIMUM 3 VIEWS INJECTION J1050 [facility]O [facility] 6 [facility] MEDROXYPR [facility] DEPT [facility] DEPT OGESTERON KIERA KIERA E ACETATE 1 MG INJECTION J1050 [facility] 6 [facility] MEDROXYPR [facility] DEPT [facility] DEPT OGESTERON KIERA KIERA E ACETATE 1 MG CONTRACEP A4267 VANNESSAWI VANNESSACO TIVE 6 [facility] SUPPLY [facility] DEPT [facility] DEPT CONDOM KIERA KIERA MALE EACH THERAPEUT 04876 VELIA SCHMITZ- IC 6 [facility] PROPHYLAC TIC/DX INJECTION SUBQ/IM INJECTION J1100 VELIA ZARAGOZALER- 6 [facility] DEXAMETHO SONE SODIUM PHOSPHATE 1 MG THER 87593 [facility] PROPH/DX 6 [facility] H[facility]PITAL PUSH SINGLE/1S T SBST/DRUG THERAPEUT 66217 [facility] IC [address] [place] [address] IV PUSH EACH NEW DRUG INJ J2930 [facility] METHYLPRD [address] [place] [address] SODIUM SUCCNAT TO 125 MG IADNA 05871 [facility] 6 [facility] HLTH DEPT HLTH DEPT GONORRHOE KIERA KIERA AE AMPLIFIED PROBE TQ CONTRACEP A4267 [facility] TIVE 6 [facility] SUPPLY HL DEPT HLTH DEPT CONDOM KIERA KIERA MALE EACH IADNA 47623 [facility] CHLAMYDIA 6 [facility] DEPT TH DEPT TRACHOMAT KIERA KIERA IS AMPLIFIED PROBE TQ INJECTION J[address] [facility] IN[facility] PER 15 MG RADEX 95976 [facility] NASAL [address] [place] [address] COMPLETE MINIMUM 3 VIEWS THERAPEUT 51033 [facility] IC [address] [place] [address] TIC/DX INJECTION SUBQ/IM BLOOD 81689 [facility] COUNT [address] [place] [address] AUTO&AUTO DIFRNTL WBC COLLECTIO 09168 [facility] N VENOUS [address] [place] [address] VENIPUNCT URE COMPREHEN 53975 [facility] SIVE [address] [place] [address] PANEL IAADIADOO 25453 [facility]N [facility] CCUS GROUP A CYANOCOBA 97468 [facility] ALFREDO 6 ELIZABETH ELIZABETH VITAMIN HOLDINGS [place] B-[address] [place] [address] [facility] F[facility] FOLIC 6 ELIZABETH ELIZABETH ACID HOLDINGS HOLDINGS SERUM BASIC 10634 [facility] METABOLIC 6 ELIZABETH ELIZABETH PANEL HOLDINGS HOLDINGS CALCIUM TOTAL ANES 13240 [facility] [place] [place] JEAN UPPER GI 6 ANESTHESI ENDOSCOPY A GROUP PROXIMAL PS TO DUODENUM INJECTION J1050 [facility] 6 [facility] MEDROXYPR TH DEPT HLTH DEPT OGESTERON KIERA KIERA E ACETATE 1 MG HPYLORI 40869 [facility] BREATH 6 ELIZABETH ELIZABETH ANAL HOLDINGS HOLDINGS UREASE ACT NON-RADAC T ISTOPE GENERAL 22384 [facility] HEALTH 6 ELIZABETH ELIZABETH [place] [address] [facility] AMYLASE 6 ELIZABETH [place] [address] [facility] FREE 6 ELIZABETH ELIZABETH THYROXINE HOLDINGS HOLDINGS URINE 47361 VELIA VELIA 6 CLINIC CLINIC TEST V[place] [address] [facility] FOLIC 6 ELIZABETH ELIZABETH [place] [address] [facility] F[facility] LIPASE 6 ELIZABETH ELIZABETH HOLDINGS HOLDINGS CYANOCOBA 27886 [facility] ALFREDO 6 ELIZABETH ELIZABETH VITAMIN HOLDINGS HOLDINGS B-12 IAADIADOO 20761 HATT[facility] RESENDIZ 5 [facility] ST[facility] URGENT CCUS TREAT GROUP A CONTRACEP A4267 [facility] TIVE 5 [facility] DISTRICT SUPPLY HLTH DEPT HLTH DEPT CONDOM KIERA KIERA MALE EACH INJECTION J1050 [facility] 5 [facility] DISTRICT MEDROXYPR [facility] DEPT TH DEPT OGESTERON KIERA KIERA E ACETATE 1 MG LARYNGOSC 45671 EAR, NOSE SHASHY OPY 5 AND MIRANDA FLEXIBLE THROAT DIAGNOSTI SPECIAL C IAADIADOO 57099 [facility] RESENDIZ [facility] [place] [address] [facility] [place] CORBIN JAM ABDOMEN & 5 RADIOLOGY PELVIS W/O CONTRAST MATERIAL URINE 48140 [facility] TEST TH DEPT HLTH DEPT VISUAL KIERA KIERA COLOR CMPRSN METHS CONTRACEP A4267 [facility] TIVE 5 [facility] DISTRICT SUPPLY HLTH DEPT HLTH DEPT CONDOM KIERA KIERA MALE EACH INJECTION J1050 [facility] MEDROXYPR HLTH DEPT HLTH DEPT OGESTERON KIERA KIERA E ACETATE 1 MG IADNA 60880 [facility] CHLAM[facility]DIA 5 [facility] HLTH DEPT HLTH DEPT TRACHOMAT KIERA KIERA IS AMPLIFIED PROBE TQ IADNA 03003 [facility] NEISS[facility]IA [facility] HLTH DEPT HLTH DEPT GONORRHOE KIERA KIERA AE AMPLIFIED PROBE TQ RADEX 94074 MIMI MIMI ANKLE 5 [facility] COMPLETE INC INC MINIMUM 3 VIEWS CRTCHS E0114 [facility]VANCED ADVANCED UNDARM 5 TECHNOLOG TECHNOLOG OTH THAN IES INC IES INC WOOD PAIR PAD TIP&HNDGR IP THER 54164 KASI VILLASEÑOR PROPH/[facility] PUSH SINGLE/1S T SBST/DRUG INJECTION J2405 [facility] [place] 5 [facility] HCL PER 1 [place] [address] [facility] [place] AMYLASE [address] [place] [address] INJECTION J1885 [facility] [place] [address] [place] [address] KETOROLAC [facility] TROMETHAM INE PER 15 MG CULTURE 69323 KASI VILLASEÑOR BACTERIAL [address] [place] [address] QUANTTATI VE COLONY COUNT URINE URINE 45708 KASI VILLASEÑOR [address] [place] [address] [place] [address] [facility] [place] GAUTAM ABDOMEN & 5 RADIOLOGY PELVIS W/O CONTRAST MATERIAL COLLECTIO 51094 KASI VILLASEÑOR N VENOUS [address] [place] [address] VENIPUNCT URE THERAPEUT 25533 KASI VILLASEÑOR IC [address] [place] [address] IV PUSH EACH NEW DRUG URNLS DIP 35799 KASI VILLASEÑOR [address] [place] [address] [facility] HOSPITAL LET REAGENT AUTO MICROSCOP Y COMPREHEN 79943 KASI VILLASEÑOR SIVE [address] [place] [address] HOSPITAL PANEL BLOOD 39731 [facility] [place] COUNT [address] [place] [address] AUTO&AUTO DIFRNTL WBC CT ANGIO 43305 [facility] [place] CRYSTAL ABD&PLVIS 5 RADIOLOGY JOSE CNTRST MTRL W/WO CNTRST IMG RADIOLOGI 37389 [facility] [place] CRYSTAL C 5 RADIOLOGY JOSE EXAMINATI ON PELVIS 1/[address] LUMBAR 60408 [facility] [place] GAUTAM SPINE 5 RADIOLOGY W/O CONTRAST MATERIAL AMB A0427 [facility] KUHN SERVICE [address] [place] [address] AMBULANCE AMBULANCE EMERGENCY SE [place] [address] [place] HAJIBRAHI ANGIOGRAP 5 RADIOLOGY M DHAVAL HY CHEST W/[place] [address] [facility] [place] CORBIN JAM CERVICAL 5 RADIOLOGY SPINE W/O CONTRAST MATERIAL RADIOLOGI 36924 [facility] [place] ROJAS C 5 RADIOLOGY JOSE EXAMINATI ON CHEST SINGLE VIEW FRONTAL GROUND A0425 [facility] KUHN [address] PER AM[place]ULANCE [place] [address] MATILDE GALLEGOINEKE HEAD/BRAI 5 MEDICAL NANI N W/[place] [address] MATILDE BEINEKE CERVICAL 5 MEDICAL NANI SPINE [place] [address] [facility] TRANSVAGI [address] [place] [address] [place] [address] [facility] [facility] LIPASE [address] [place] [address] [place] [address] [facility] AMYL[facility] [address] [place] [address] URINE 13377 [facility] [address] [place] [address] [place] [address] [facility] ABDOMEN & [address] [place] [address] PELVIS [facility] W/O CONTRAST MATERIAL BLOOD 73315 [facility] COUNT [address] [place] [address] AUTO&AUTO DIFRNTL WBC COMPREHEN 10286 [facility] SIVE [address] [place] [address] PANEL URNLS DIP 23679 [place] [facility] [address] [place] [address] [facility] HOSPITAL LET REAGENT AUTO MICROSCOP Y COLLECTIO 13952 [facility] N VENOUS [address] [place] [address] VENIPUNCT URE PRESSURIZ 60320 INGE INGE ED/NONPRE 5 CHAD BONILLA SSURIZED INHALATIO N TREATMENT BRNCDILAT 54300 INGE INGE RSPSE 5 CHAD BONILLA SPMTRY PRE&POST- BRNCDILAT ADMN NITRIC 00863 INGE INGE OXIDE 5 CHAD BONILLA GAS DETERMINA TION PREPJ& 32631 INGE INGE ALLERGEN 4 CHAD CHAD IMMUNOTHE RAPY 1/CONTROLLED ATMOSPHERIC FURNACE BRAZER ANTIGEN INITIAL 51058 RACHEL RAMOS OBSERVATI 4 SOY SOY ON CARE/DAY 50 MINUTES RADIOLOGI 99675 MIMI MIMI Alex EXAM 4 [facility] CHEST 2 INC INC VIEWS FRONTAL&L ATERAL BILIRUBIN 90194 [facility] TOTAL 4 ELIZABETH ELIZABETH HOLDINGS HOLDINGS CALCIUM 20261 [facility] TOTAL 4 ELIZABETH ELIZABETH HOLDINGS HOLDINGS TRANSFERA 88187 [facility] SE 4 ELIZABETH ELIZABETH ASPARTATE [place] [address] [facility] F[facility] UREA 4 ELIZABETH ELIZABETH NITROGEN HOLDINGS [place] [address] LAB F[facility] PHOSPHATA 4 ELIZABETH ELIZABETH SE HOLDINGS HOLDINGS ALKALINE POTASSIUM 09960 [facility] SERUM 4 ELIZABETH ELIZABETH PLASMA/WH HOLDINGS HOLDINGS OLE BLOOD CHLORIDE 53617 [facility] BLD 4 ELIZABETH ELIZABETH HOLDINGS HOLDINGS CREATININ 69722 [facility] E BLOOD 4 ELIZABETH ELIZABETH HOLDINGS HOLDINGS ALBUMIN 94814 [facility] SERUM 4 ELIZABETH ELIZABETH PLASMA/WH HOLDINGS HOLDINGS OLE BLOOD GLUCOSE 64601 [facility] QUANTITAT 4 ELIZABETH ELIZABETH MORENITA BLOOD HOLDINGS HOLDINGS XCPT REAGENT STRIP PROTEIN 91515 [facility] XCPT 4 ELIZABETH ELIZABETH REFRACTOM HOLDINGS HOLDINGS ETRY SERUM PLASMA/WH L BLD SODIUM 29300 [facility] SERUM 4 ELIZABETH ELIZABETH PLASMA OR HOLDINGS HOLDINGS WHOLE BLOOD BLOOD 29439 [facility] COUNT 4 ELIZABETH ELIZABETH COMPLETE HOLDINGS HOLDINGS AUTO&AUTO DIFRNTL WBC COLLECTIO 23573 VELIA Jiménez VENOUS 4 CLINIC BLOOD VENIPUNCT URE IAADIADOO 51683 MEANS BUTROS 4 ADULT MARISEL STREPT[facility] PRIMARY CCUS CARE CLI GROUP A INJECTION J1040 INTEGRITY RICHARDS, 4 JR. JAM METHYLPRE ORTHOPAED DNISOLONE ICS SPORT ACETATE 80 MG ARTHROCEN 63328 INTEGRITY RICHRADS, WHIT 4 JR. JAM ASPIR&/IN ORTHOPAED J MAJOR ICS SPORT JT/BURSA W/[place] ANY [address] [facility] [place] ROJAS JT LOWER 4 RADIOLOGY JOSE EXTREM W/O CONTRAST MATRL RADEX 95819 MATILDE BEINEKE SHOULDER 4 MEDICAL NANI COMPLETE IMAGING MINIMUM 2 ASS VIEWS SLINGS A4565 BREG INC. BREG INC. 4 DEMO&/KERWIN 40308 VELIA SCHMITZ- L OF PT 4 [facility] UTILIZ AERSL GEN/NEB/I NHLR/IP THERAPEUT 67503 VELAI SCHMITZ- IC 4 [facility] PROPHYLAC [...] CEFTRIAXO NE SODIUM PER 250 MG PRESSURIZ 71728 VELIA SCHMITZ- ED/NONPRE 4 [facility] SSURIZED INHALATIO N TREATMENT MANUAL 71684 SCHULTE CHR SCHULTE CHR THERAPY 4 TQS 1/> REGIONS EACH 15 MINUTES THERAPEUT 11734 SCHULTE CHR SCHULTE CHR IC PX 1/> 4 AREAS EACH 15 MIN EXERCISES THERAPEUT 81488 SCHULTE CHR SCHULTE CHR IC PX 1/> 4 AREAS EACH 15 MIN EXERCISES MANUAL 83217 SCHULTE CHR SCHULTE CHR THERAPY 4 TQS 1/> REGIONS EACH 15 MINUTES MANUAL 78943 SCHULTE CHR SCHULTE CHR THERAPY 4 TQS 1/> REGIONS EACH 15 MINUTES THERAPEUT 58453 SCHULTE CHR SCHULTE CHR IC PX 1/> 4 AREAS EACH 15 MIN EXERCISES THERAPEUT 95655 SCHULTE CHR SCHULTE CHR IC PX 1/> 4 AREAS EACH 15 MIN EXERCISES MANUAL 32225 SCHULTE CHR SCHULTE CHR THERAPY 4 TQS 1/> REGIONS EACH 15 MINUTES MANUAL 39078 SCHULTE CHR SCHULTE CHR THERAPY 4 TQS 1/> REGIONS EACH 15 MINUTES THERAPEUT 27323 SCHULTE CHR SCHULTE CHR IC PX 1/> 4 AREAS EACH 15 MIN EXERCISES MANUAL 00980 SCHULTE CHR SCHULTE CHR THERAPY 4 TQS 1/> REGIONS EACH 15 MINUTES THERAPEUT 10369 SCHULTE CHR SCHULTE CHR IC PX 1/> 4 AREAS EACH 15 MIN EXERCISES PHYSICAL 71232 SCHULTE CHR SCHULTE CHR THERAPY 4 EVALUATIO N RADIOLOGI 02033 MOOKIE VARGASA C 4 SHANNON SHANNON EXAMINATI ON KNEE 1/2 VIEWS RADEX 76987 SAMA SAMA ANKLE 4 SHANNON SHANNON COMPLETE MINIMUM 3 VIEWS ANKLE L1902 [employer] 4 [employer] GAUNT/SIM PREFAB OFF-THE-S HELF COMPRE 31027 [facility] SET AUDIOMETR 4 PHYSICIAN Y PRACTICE THRESHOLD L EVAL SP RECOGNIJ TYMPANOME 43710 [facility] SET TRY 4 PHYSICIAN PRACTICE L CUL BACT 85298 [facility] [employer], [facility], XCPT 4 MANAGER ROUTE MANAGER ROUTE URINE HATTIE HATTIE BLOOD/STO [place] [address] [facility], [facility], SHIGA-LIK 4 MANAGER ROUTE MANAGER ROUTE E TOXIN HATTIE HATTIE CO HOS CO HOS CUL BACT 32517 [facility], [facility], STOOL 4 MANAGER ROUTE MANAGER ROUTE AEROBIC HATTIE HATTIE ISOL CO HOS CO HOS SALMONELL A&SHIGELL CUL BACT 69299 [facility], [facility], STOOL 4 MANAGER ROUTE MANAGER ROUTE AEROBIC HATTIE HATTIE ADDL CO HOS CO HOS PATHOGENS &ID EA SMR PRIM 31832 [facility], [facility], SRC CPLX 4 MANAGER ROUTE MANAGER ROUTE SPEC HATTIE HATTIE STAIN CO HOS CO HOS OVA&MARVA ITS BLOOD 70601 [facility], [facility], OCCULT 4 MANAGER ROUTE MANAGER ROUTE PEROXIDAS HATTIE HATTIE E ACTV CO HOS CO HOS QUAL FECES 1 DETER BLOOD 23059 [facility] [employer], [facility] [employer], COUNT 4 MANAGER ROUTE MANAGER ROUTE COMPLETE HATTIE HATTIE AUTO&AUTO CO HOS CO HOS DIFRNTL WBC COMPREHEN 76157 [facility] [employer], [employer], SIVE 4 MANAGER ROUTE MANAGER ROUTE METABOLIC HATTIE HATTIE PANEL CO HOS CO HOS LEUKOCYTE 12911 [facility], [employer], ASSMT 4 MANAGER ROUTE MANAGER ROUTE FECAL HATTIE HATTIE QUAL/SEMI CO HOS CO HOS QUANTITAT MORENITA OVA&MARVA 68576 [facility] [employer], [employer], ITES 4 MANAGER ROUTE MANAGER ROUTE DIRECT HATTIE HATTIE SMEARS CO HOS CO HOS CONCENTRA TION & ID [id number] [facility] 4 [place] STREPT[facility] CCUS GROUP A SPMTRY 87565 INGE INGE W/VC 4 CHAD BONILLA EXPIRATOR Y RADHA W/WO MXML VOL VNTJ IAADIADOO 15623 [facility] 4 NAN NAN STREPTOCO CCUS GROUP A PREPJ& 50929 INGE INGE ALLERGEN 4 CHAD BONILLA IMMUNOTHE RAPY 1/CONTROLLED ATMOSPHERIC FURNACE BRAZER ANTIGEN THER 43981 [facility] [employer], [employer], PROPH/DX 4 MANAGER ROUTE MANAGER ROUTE NJX IV HATTIE HATTIE PUSH CO HOS CO HOS SINGLE/1S T SBST/DRUG RADIOLOGI 09159 [facility]ENO C EXAM 4 ANIBAL ANIBAL CHEST 2 VIEWS FRONTAL&L ATERAL BASIC 67135 [facility] [employer], [employer], METABOLIC 4 MANAGER ROUTE MANAGER ROUTE PANEL HATTIE HATTIE CALCIUM CO HOS CO HOS TOTAL PRESSURIZ 15104 [facility] [employer], [employer], ED/NONPRE 4 MANAGER ROUTE MANAGER ROUTE SSURIZED HATTIE HATTIE INHALAT[place] [address] [facility] [employer], [employer], INFUSION 4 MANAGER ROUTE MANAGER ROUTE THERAPY/P HATTIE HATTIE ROPHYLAXI CO HOS CO HOS S /DX 1ST TO 1 HR BLOOD 43756 [facility] [employer], [employer], COUNT 4 MANAGER ROUTE MANAGER ROUTE COMPLETE HATTIE HATTIE AUTO&AUTO CO HOS CO HOS DIFRNTL WBC IIV3 75498 [facility] VACCINE 4 [place] SPLIT VIRUS 0.5 ML DOSAGE IM USE PROF SVCS 41941 INGE INGE ALLG 4 CHAD CHAD IMMNTX X W/PRV ALLGIC XTRCS NJXS PREPJ& 18010 INGE INGE ALLERGEN 4 CHAD CHAD IMMUNOTHE RAPY 1/CONTROLLED ATMOSPHERIC FURNACE BRAZER ANTIGEN SPMTRY 89228 INGE INGE W/VC 3 CHAD CHAD EXPIRATOR Y RADHA W/WO MXML VOL VNTJ INTRACUTA 77587 INGE INGE NEOUS 3 CHAD CHAD TESTS W/ALLERGE KIERA EXTRACTS PERCUTANE 09920 INGE INGE OUS TESTS 3 CHAD CHAD W/ALLERGE KIERA EXTRACTS URNLS DIP 38191 [facility] 3 [place] STICK/TAB LET RGNT AUTO W/O MICROSCOP Y RADEX 70124 [employer] INC, [employer] INC, ANKLE 3 MANAGER ROUTE MANAGER ROUTE COMPLETE HATTIE HATTIE MINIMUM 3 CO HOS CO HOS VIEWS RADEX 50771 [employer], [employer], FOOT 3 MANAGER ROUTE MANAGER ROUTE COMPLETE HATTIE HATTIE MINIMUM 3 CO HOS CO HOS VIEWS OPHTH 11850 [facility] MEDICAL 3 GRE GRE XM&EVAL COMPRE NEW PT 1/> VST SPMTRY 27602 INGE INGE W/VC 3 CHAD CHAD EXPIRATOR Y RADHA W/WO MXML VOL VNTJ DETERMINA 67434 [facility] TION 3 GRE GRE REFRACTIV E STATE RADEX 16819 [employer], [employer], FOOT 3 MANAGER ROUTE MANAGER ROUTE COMPLETE HATTIE HATTIE MINIMUM 3 CO HOS CO HOS VIEWS SPACR A4627 MT MED MT MED BAG/RESRV 3 EQUIPMENT EQUIPMENT OR W/WO INC INC MASK W/METRD DOSE INHAL BRNCDILAT 19461 INGE INGE RSPSE 3 CHAD CHAD SPMTRY PRE&POST- BRNCDILAT ADMN ANES 29493 SIENNA ANT SIENNA ANT INTRAPERI 3 TONEAL UPPER ABDOMEN W/LAPS NOS PRESSURIZ 22361 KASI VILLASEÑOR ED/NONPRE 3 [facility] INHALATIO N TREATMENT LEVEL III 99506 TANOUS, TANOUS, SURG 3 JR EDW JR EDW PATHOLOGY GROSS&JANA ROSCOPIC EXAM LAPAROSCO 62530 MAKAYLA BENAVIDES JR PY SURG 3 KASSANDRA KASSANDRA CHOLECYST ECTOMY URINE 41177 MARIANNEURBON MARIANNEURBON 3 [facility] VISUAL COLOR CMPRSN METHS COLLECTIO 48261 KASI VILLASEÑOR N VENOUS 3 [facility] VENIPUNCT URE BLOOD 90582 KASI VILLASEÑOR COUNT 3 [facility] AUTO&AUTO DIFRNTL WBC COMPREHEN 91261 KASI VILLASEÑOR SIVE 3 [facility] PANEL HEPATOBIL 71723 RUSSEL RUSSEL SYST 3 RHO RHO IMAG INC GB W/[place] [address] [employer], AMYLASE 3 MANAGER ROUTE MANAGER ROUTE HATTIE HATTIE [facility] CO HOS BLOOD 64425 [employer], COUNT 3 MANAGER ROUTE MANAGER ROUTE COMPLETE HATTIE HATTIE AUTO&AUTO CO HOS CO HOS DIFRNTL WBC COMPREHEN 59406 [employer], [employer], SIVE 3 MANAGER ROUTE MANAGER ROUTE METABOLIC [place]ATT[place] [address] [facility], [employer], ABDOMINAL 3 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 ROUTE 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 ROUTE REAL HATTIE HATTIE TIME CO HOS CO HOS W/IMAGE LIMITED ADMN SET A7003 YOUR YOUR SM VOL 3 PHARMACY PHARMACY [facility] PNEUMAT NEBULIZR DISPBL NEBULIZER E0570 DANGELO DANGELO WITH 3 HOME HOME COMPRESSO MEDICAL MEDICAL R EQUIPME EQUIPME RADIOLOGI 25267 NELLIE BALLARD C EXAM 3 EIDER LASHON JET LASHON CHEST 2 VIEWS FRONTAL&L ATERAL RADIOLOGI 32008 NELLIE BALLARD C EXAM 3 EIDER LASHON EIDER LASHON CHEST 2 VIEWS FRONTAL&L ATERAL URINE 27694 [facility] 3 Y Y TEST [facility] VISUAL COLOR CMPRSN METHS BX/EXC 56181 [facility] LYMPH 3 Y Y NODE OPEN [facility] DEEP CERVICAL NODE INJECTION J3010 [facility] FENTANYL 3 Y Y CITRATE [facility] HOSPITAL 0.1 MG INFUSION J7030 [facility] NORMAL 3 Y Y SALINE [facility] SOLUTION 1000 CC EXC TUMOR 59034 ADLER ADLER SOFT 3 TONYA TONYA TISS NECK/THOR AX SUBFASCIA L <5CM INJECTION J1100 [facility] 3 Y Y DEXAMETHO [facility] SONE SODIUM PHOSPHATE 1 MG RINGERS J7120 [facility] LACTATE 3 Y Y INFUSION [facility] UP TO 1000 CC INJECTION J2405 [facility] 3 [facility] PER 1 MG ANES 99427 HOWARD JANA HOWARD JANA INTEG 3 MUSC & NRV HEAD NECK&POST ERIOR TRUNK INJECTION J2250 [facility] 3 Y Y MIDAZOLAM [facility] HCL PER 1 [place] [address] MONTILLA MOL MONTILLA MOL SURG 3 PATHOLOGY GROSS&JANA ROSCOPIC EXAM BLOOD 60196 [employer], [employer], COUNT 3 MANAGER ROUTE MANAGER ROUTE COMPLETE HATTIE KUHN AUTO&AUTO CO HOS CO HOS DIFRNTL WBC GONADOTRO 89628 [employer], [employer], PIN 3 MANAGER ROUTE MANAGER ROUTE CHORIONIC HATTIE KUHN CO HOS CO HOS QUALITATI VE THYROID 04250 [employer], [employer], HORM 3 MANAGER ROUTE MANAGER ROUTE UPTK/THYR HATTIE KUHN OID CO HOS CO HOS HORMONE BINDING RATIO BLOOD 35223 [employer] INC, COUNT 3 MANAGER ROUTE MANAGER ROUTE COMPLETE HATTIE REILLYS AUTO&AUTO CO HOS CO HOS DIFRNTL WBC HEMOGLOBI 48008 [employer], [employer], N 3 MANAGER ROUTE MANAGER ROUTE GLYCOSYLA HATTIE KUHN DOROTHY A1[place] [address] [employer], [employer], THYROID 3 MANAGER ROUTE MANAGER ROUTE STIMULATI HATTIE KUHN NG CO HOS CO HOS HORMONE TSH COMPREHEN 83908 [employer], [employer], SIVE 3 MANAGER ROUTE MANAGER ROUTE METABOLIC HATTIE HATT[place] [address] [employer], [employer], INSULIN 3 MANAGER ROUTE MANAGER ROUTE TOTAL [place] [address] [employer], [employer], FREE 3 MANAGER ROUTE MANAGER ROUTE THYROXINE [place]ATT[place] [address] [employer], [employer], THYROXINE 3 MANAGER ROUTE MANAGER ROUTE TOTAL HATTIE HATTIE CO HOS CO HOS US SOFT 06330 HAGENSCHN HAGENSCHN TISSUE 3 EIDER LASHON E[facility]ER LASHON HEAD & [place] [address] [employer], [employer], EXTREMITY 3 MANAGER ROUTE MANAGER ROUTE NON-VASC HATTIE HATTIE [place] [address] [facility] CERVICAL 2 ANIBAL SPINE W/O RADIOLOGY CONTRAST ASSOCIAT MATERIAL AMBULANCE A0429 [facility] SERVICE 2 AMBULETT AMBULETT BLS & & EMERGENCY AMBULANC AMBULANC TRANSPORT GROUND A0425 [facility] MILEAGE 2 AMBULETT AMBULETT PER & & STATUTE AMBULANC AMBULANC MILE EGD 77387 [facility] TRANSORAL 2 Y Y BIOPSY [facility] SINGLE/MU LTIPLE RINGERS J7120 [facility] LACTATE 2 Y Y INFUSION [facility] UP TO 1000 CC COLONOSCO 17648 [facility] PY 2 Y Y W/BIOPSY [facility] SINGLE/MU LTIPLE INJECTION J3010 [facility] FENTANYL 2 Y Y CITRATE [facility] 0.1 MG ANES 86027 [place] [facility] 2 MEDICAL ALB INTESTINE SERVICES ENDOSCOPY DISTAL DUODENUM INJECTION J2250 [facility] 2 Y Y MIDAZOLAM [facility] HCL PER 1 [place] [address] [facility] SURG 2 Y Y PATHOLOGY [facility] GROSS&JANA ROSCOPIC EXAM CUL BACT 99663 [facility] PPIPA 2 Y Y ANAERC [facility] ISOL XCPT UR BLOOD/[place] [address] [employer], MULT STEP 2 MANAGER ROUTE MANAGER ROUTE METHOD HATTIE HATTIE NOS [place] [address] [facility], CLOSTRIDI 2 MANAGER ROUTE MANAGER ROUTE UM HATTIE HATTIE DIFFICILE CO HOS CO HOS TOXIN FAT/LIPID 50404 [facility], [facility], S FECES 2 MANAGER ROUTE MANAGER ROUTE QUALITATI HATTIE HATTIE VE CO HOS CO HOS RADEX 67312 [facility], [facility], FOOT 2 MANAGER ROUTE MANAGER ROUTE COMPLETE HATTIE HATTIE MINIMUM 3 CO HOS CO HOS VIEWS IMMUNOASS 86103 [facility] AY 2 Y Y ANALYTE [facility] QUAL/SEMI QUAL MULTIPLE STEP COMPREHEN 83771 [facility] SIVE 2 Y Y METABOLIC [facility] [address] [facility] THYROID 2 Y [facility] [place] [place] [address] [facility] GAMMAGLOB 2 Y Y IN [facility] IGD IGG IGM EACH C-REACTIV 20347 [facility] E PROTEIN 2 Y Y [facility] BLOOD 04706 [facility] COUNT 2 Y Y [facility] AUTOMATED SIMPLE 79538 HATTIE BROOKS REPAIR 2 CO DIOGENES F/E/E/N/L HOSPITAL /M 2.5CM/< SIMPLE 44493 [facility], [facility], REPAIR 2 MANAGER ROUTE MANAGER ROUTE F/E/E/N/L HATTIE HATTIE /M CO HOS CO HOS 2.5CM/< GONADOTRO 59316 [facility], [facility], PIN 2 MANAGER ROUTE MANAGER ROUTE CHORIONIC HATTIE HATTIE CO HOS CO HOS QUALITATI VE THERAPEUT 48829 [facility] [employer], [facility], IC 2 MANAGER ROUTE MANAGER ROUTE PROPHYLAC HATTIE HATTIE TIC/DX CO HOS CO HOS INJECTION SUBQ/IM INJECTION J2001 [facility] [employer], [facility], 2 MANAGER ROUTE MANAGER ROUTE LIDOCAINE HATTIE HATTIE HCL CO HOS CO HOS INTRAVENO US INFUS 10 MG INJECTION J1885 [facility], [facility] INC, 2 MANAGER ROUTE MANAGER ROUTE KETOROLAC HATTIE HATTIE CO HOS CO HOS TROMETHAM INE [place] [address] [place] [address] [facility], [employer], CERVICAL 2 MANAGER ROUTE MANAGER ROUTE SPINE W/O HATTIE KUHN CONTRAST CO HOS CO HOS MATERIAL RADEX 88091 [facility], [employer], SPINE 2 MANAGER ROUTE MANAGER ROUTE LUMBOSACR HATTIE KUHN AL 2/3 CO HOS CO HOS VIEWS RADEX 05707 [facility], [employer], SPINE 2 MANAGER ROUTE MANAGER ROUTE THORACIC HATTIE KUHN 2 [place] [address] MD DIEGO CORTEZ MD TRANSVAGI 2 STEPHEN STEPHEN NAL HEPATOBIL 03611 [facility] [place] SYST 2 [facility] IMAG [facility] GB W/PHARMA INTERVENJ BASIC 95888 [facility] METABOLIC 2 [facility] [place] [address] [place] [facility] MAT ABDOMEN & 2 RADIOLOGY PELVIS W/O CONTRAST MATERIAL URINE 90243 [facility]ASI [place]FF[place] 2 [facility] VISUAL COLOR CMPRSN METHS THER 07483 [facility] PROPH/DX 2 [facility] NJX IV [facility] HOSPITAL PUSH SINGLE/1S T SBST/DRUG BLOOD 46381 [facility] 2 [facility] AUTO&AUTO DIFRNTL WBC COLLECTIO 48982 [facility] N VENOUS 2 [facility] VENIPUNCT URE URNLS DIP [address] STICK/TAB [facility] HOSPITAL LET REAGENT AUTO MICROSCOP Y CYTP C/V 48917 PATHOLOGY PICKLESIM AUTO THIN 2 & ER JR RADAMES LYR CYTOLOGY PREPJ SCR LAB MNL RESCR PHYS URINLS 19446 JEFE MAYBERRY DARRION DIP 2 STICK/TAB LET REAGNT NON-AUTO MICRSCPY URINLS 90048 JEFE MAYBERRY DARRION DIP 2 STICK/TAB LET REAGNT NON-AUTO MICRSCPY IAADIADOO 28038 JEFE MAYBERRY DARRION 1 STREPTOCO CCUS GROUP A COLLECTIO 16233 JEFE MAYBERRY DARRION N VENOUS 1 BLOOD VENIPUNCT URE GENERAL 62975 [facility] 1 AMERIC [place] [address] [facility] THYROXINE 1 AMERIC AMERIC TOTAL HOLDINGS HOLDING THYROID 06975 [facility] HORM 1 AMERIC AMERIC UPTK/THYR HOLDINGS HOLDING OID HORMONE BINDING RATIO RADEX 61983 HATTIE KUHN ELBOW 1 CO CO COMPLETE [facility] MINIMUM 3 [place] [address] MD DIEGO CORTEZ MD TRANSVAGI 1 STEPHEN STEPHEN NAL THER 83794 [facility] PROPH/DX 1 Y Y NJX IV HOSPITAL HOSPITAL PUSH SINGLE/1S T SBST/DRUG BLOOD 12657 [facility] COUNT 1 Y Y COMPLETE [facility] AUTO&AUTO DIFRNTL WBC RINGERS J7120 [facility] LACTATE 1 Y Y INFUSION [facility] UP TO [address] [place] [address] [facility] LIPASE 1 Y Y [facility] DUP-SCAN 94095 [place] AN[place] ART[place] RADHA 1 MEDICAL [place] ABDL/PEL/ SERV SCROT&/RP FOUNDATIO R ORGN COM INJECTION J2405 [facility] 1 [facility] PER [address] [facility] 1 OSI OSI DAY MANAGEMEN T > 30 MIN INFUSION J7030 [facility] NORMAL 1 Y Y SALINE [facility] SOLUTION 1000 CC THERAPEUT 71989 [facility] IC 1 Y Y INJECTION [facility] IV PUSH EACH NEW DRUG US PELVIC 88763 [facility] 1 [facility] NONOBSTET RADIOLOGY FERMÍN ASSOCIAT REAL-TIME IMAGE COMPLETE INJECTION J2270 [facility] MORPHINE 1 Y Y SULFATE [facility] HOSPITAL UP TO 10 MG COMPREHEN 54567 [facility] SIVE 1 Y Y METABOLIC [facility] [place] [address] [facility] INFUSION 1 Y Y HYDRATION [facility] EACH ADDITIONA L HOUR URNLS DIP 31574 [facility] 1 Y Y STICK/TAB [facility] HOSPITAL LET RGNT AUTO W/O MICROSCOP Y URINE 84631 HATTIE KUHN 1 CO CO TEST HOSPITAL HOSPITAL VISUAL COLOR CMPRSN METHS SBSQ 98269 [facility] 1 DREAD DREAD CARE/DAY 25 MINUTES INITIAL 46754 [facility] 1 OSI OSI CARE/DAY 70 MINUTES INJECTION J2550 HATTIE KUHN 1 CO CO [facility] INE HCL UP TO 50 MG BLOOD 86023 HATTIE KUHN COUNT 1 CO CO COMPLETE HOSPITAL HOSPITAL AUTO&AUTO DIFRNTL WBC BASIC 73648 HATTIE KUHN METABOLIC 1 CO CO PANEL HOSPITAL HOSPITAL CALCIUM TOTAL URNLS DIP 63832 HATTIE HATTIE 1 CO CO STICK/TAB HOSPITAL HOSPITAL [place] [address] HATTIE KUHN INFUSION 1 CO CO THERAPY/P HOSPITAL [facility] S /DX 1ST TO 1 HR HOSPITAL G0378 HATTIE KUHN OBSERVATI 1 CO CO ON HOSPITAL HOSPITAL SERVICE PER HOUR COLLECTIO 08873 [facility] N VENOUS 1 [facility] BLOOD [facility] HOSPITAL VENIPUNCT URE URNLS DIP 71870 [facility] 1 [facility] STICK/TAB HOSPITAL HOSPITAL LET REAGENT AUTO MICROSCOP Y COMPREHEN 00428 [facility] SIVE 1 [facility] HOSPITAL PANEL URINE 04863 [facility] 1 [facility] TEST [facility] HOSPITAL VISUAL COLOR CMPRSN METHS BLOOD 79529 [place] COUNT 1 [facility] COMPLETE [facility] HOSPITAL AUTO&AUTO DIFRNTL WBC THER 34706 [facility] PROPH/DX 1 [facility] NJX IV HOSPITAL HOSPITAL PUSH SINGLE/1S T SBST/[place] [address] [facility] ABDOMEN & 1 [facility] PELVIS [facility] HOSPITAL W/CONTRAS T MATERIAL APPLICATI 96866 HATTIE BLANK ON FINGER 1 CO [facility] STATIC RADEX 09073 [facility] HAND 1 FERMÍN MINIMUM 3 RADIOLOGY VIEWS ASSOCIAT IAADIADOO 43184 REJI MAYBERRY DARRION 1 MEDICAL STREPTOCO CLINIC CCUS GROUP A SMR PRIM [phone] 20895 HATTIE KUHN SRC 0 CO CO GRAM/GIEM [facility] SA STAIN BCT FUNGI/DARELL L PRESSURIZ 77521 HATTIE KUHN ED/NONPRE 0 CO CO SSURIZED [facility] INHALATIO N TREATMENT CUL BACT 27333 HATTIE KUHN XCPT 0 CO CO URINE [facility] BLOOD/STO OL AEROBIC ISOL HOSPITAL 63236 [facility] DISCHARGE 0 DREAD DREAD DAY MANAGEMEN T 30 MIN/< INITIAL 87755 [facility] 0 DREAD DREAD CARE/DAY 50 MINUTES BLOOD 14417 HATTIE KUHN COUNT 0 CO CO SMEAR [facility] MCRSCP W/MNL DIFRNTL WBC COUNT PRESSURIZ 46288 HATTIE KUHN ED/NONPRE 0 CO CO SSURIZED [facility] INHALATIO N TREATMENT COLLECTIO 35637 HATTIE KUHN N VENOUS 0 CO CO [facility]LOOD [facility]8 HATTIE KUHN OBSERVATI 0 CO CO ON HOSPITAL HOSPITAL SERVICE PER HOUR ELECTROLY 59228 HATTIE KUHN TE PANEL 0 CO CO [facility] URNLS DIP 82400 HATTIE KUHN 0 CO CO STICK/TAB [facility] LET REAGENT AUTO MICROSCOP Y US PELVIC 67573 [facility] 0 FERMÍN NONOBSTET RADIOLOGY FERMÍN ASSOCIAT REAL-TIME IMAGE COMPLETE URS DIP 31469 HATTIE KUHN 0 CO CO STICK/TAB [facility] LET REAGENT AUTO MICROSCOP Y PRESSURIZ 17432 HATTIE KUHN ED/NONPRE 0 CO CO SSURIZED [facility] HOSPITAL INHALATIO N TREATMENT COLLECTIO 91703 HATTIE KUHN N VENOUS 0 CO CO BLOOD [facility] [place] [address] HATTIE KUHN STREPTOCO 0 CO CO CCUS [facility] [address] HATTIE KUHN INFUSION 0 CO CO THERAPY/P [facility] ROPHYLAXI S /DX 1ST TO 1 HR BLOOD 98564 HATTIE KUHN COUNT 0 CO CO SMEAR [facility] MCRSCP W/MNL DIFRNTL WBC COUNT CUL BACT 09001 HATTIE KUHN XCPT 0 CO CO URINE [facility] BLOOD/STO OL AEROBIC ISOL ANTIBODY 40578 HATTIE KUHN INFLUENZA 0 CO CO VIRUS [facility] BASIC 06825 HATTIE KUHN METABOLIC 0 CO CO [facility] CALCIUM TOTAL RADIOLOGI 22373 [facility] EXAM 0 FERMÍN CHEST 2 RADIOLOGY VIEWS ASSOCIAT FRONTAL&L ATERAL GONADOTRO 37356 HATTIE KUHN PIN 0 CO CO CHORIONIC [facility] QUALITATI VE RADEX 74919 HATTIE KUHN HAND 0 CO CO MINIMUM 3 [facility] VIEWS [place] PELVIS 13152 [place] [facility], 0 RADIOLOGY VALERIE D W/[place] [address] [place] [facility], ABDOMEN 0 RADIOLOGY VALERIE D W/CONTRAS T MATERIAL BASIC 76126 [facility] METABOLIC 0 [facility] CALCIUM TOTAL URINLS 11725 MIKEY GUAJARDO 0 MEDICAL DINAH R STICK/TAB CLINIC LET REAGNT NON-AUTO MICRSCPY BLOOD 04463 [place] COUNT 0 [facility] AUTO&AUTO DIFRNTL WBC COLLECTIO 89447 [facility] N VENOUS 0 [facility] [place] [address] [facility] PROLACTIN 0 [facility] GLUCOSE 63805 [facility] QUANTITAT 0 [facility] MORENITA BLOOD XCPT REAGENT STRIP DEHYDROEP 19379 [facility] IANDROSTE 0 [facility] [address] [facility] INSULIN 0 [facility] [place] [address] [facility] THYROID 0 [facility] STIMULATI NG HORMONE TSH URINLS 31821 [facility], DIP 0 MEDICAL DINAH R STICK/TAB CLINIC LET REAGNT NON-AUTO MICRSCPY CULTURE 12450 [facility] BACTERIAL 0 AMERIC AMERIC HOLDING HOLDING QUANTTATI VE COLONY COUNT URINE URINLS 18996 REJI ALBARADO, DIP 0 MEDICAL DINAH R STICK/TAB CLINIC LET REAGNT NON-AUTO MICRSCPY URINE 97460 REJI ALBARADO, 0 MEDICAL DINAH R TEST CLINIC VISUAL COLOR CMPRSN METHS THERAPEUT 93311 [facility], IC PX 1/> 9 VISION ZEINAB S AREAS ANDLEARNI EACH 15 NG MIN EXERCISES ORTHOPTIC 14588 [facility], 9 VISION ZEINAB S &/PLEOPTI ANDLEARNI C NG TRAINING W/[place] [address] [facility], 1/> AREAS 9 VISION ZEINAB S EACH 15 ANDLEARNI [place] [address] [facility], 1/> AREAS 9 VISION ZEINAB S EACH 15 ANDLEARNI MIN NG NEUROMUSC REEDUCA ORTHOPTIC 87402 [facility], 9 VISION ZEINAB S &/PLEOPTI ANDLEARNI C NG TRAINING W/MEDICAL DIRECTJ THERAPEUT 77299 [facility], IC PX 1/> 9 VISION ZEINAB S AREAS ANDLEARNI EACH 15 NG MIN EXERCISES THERAPEUT 05034 [facility], IC PX 1/> 9 VISION ZEINAB S AREAS ANDLEARNI EACH 15 NG MIN EXERCISES ORTHOPTIC 19348 [facility], 9 VISION ZEINAB S &/PLEOPTI ANDLEARNI C NG TRAINING W/[place] [address] [facility]DR[facility] [place], 1/> AREAS 9 VISION ZEINAB S EACH 15 [place]LEAR[place] [address] JOLIE GUTHRIE 9 ZEINAB S REAL RADIOLOGY TIME W/IMAGE ASSOCIATE DOCUMENTA S PSC TION URNLS DIP 43338 HATTIE KUHN 9 CO CO STICK/TAB [facility] LET REAGENT AUTO MICROSCOP Y RADIOLOGI 57719 Alex GUTHRIE 9 ZEINAB S EXAMINATI RADIOLOGY ON PELVIS 1/2 ASSOCIATE VIEWS S PSC RADEX HIP 96377 [place], 9 ZEINAB S UNILATERA RADIOLOGY L COMPLETE ASSOCIATE MINIMUM 2 S PSC VIEWS RADEX 22967 [place], SHOULDER 9 ZEINAB S COMPLETE RADIOLOGY MINIMUM 2 VIEWS ASSOCIATE S PSC CULTURE 97156 HATTIE VICKOLAS BACTERIAL 9 [facility] QUANTTATI VE COLONY COUNT URINE RADEX 16977 [place], ELBOW 9 ZEINAB S COMPLETE RADIOLOGY MINIMUM 3 VIEWS ASSOCIATE S PSC THERAPEUT 69391 [place], IC PX 1/> 9 VISION ZEINAB S AREAS ANDLEARNI EACH [place] [address] [facility]DRENS [place], 1/> AREAS 9 VISION ZEINAB S EACH 15 ANDLEARNI MIN NG NEUROMUSC REEDUCA ORTHOPTIC 80827 [facility]DR[facility] [place], 9 VISION ZEINAB S &/PLEOPTI ANDLEARNI C NG TRAINING W/MEDICAL DIRECTJ ORTHOPTIC 06086 [facility]DR[facility] [place], 9 VISION ZEINAB S &/PLEOPTI ANDLEARNI C NG TRAINING W/[place] [address] [facility]ILDRENS [place], 1/> AREAS 9 VISION ZEINAB S EACH 15 ANDLEARNI MIN NG NEUROMUSC REEDUCA THERAPEUT 52436 [place]DR[place], IC PX 1/> 9 VISION ZEINAB S AREAS ANDLEARNI EACH 15 NG MIN EXERCISES THERAPEUT 25434 [place], IC PX 1/> 9 VISION ZEINAB S AREAS ANDLEARNI EACH 15 [place] [address] CHILDRENS [place], 1/> AREAS 9 VISION ZEINAB S EACH 15 ANDLEARNI MIN NG NEUROMUSC REEDUCA ORTHOPTIC 02647 [facility] [place], 9 VISION ZEINAB S &/PLEOPTI ANDLEARNI C NG TRAINING W/MEDICAL DIRECTJ SENSORMOT 79266 [place], [place] XM 9 VISION ZEINAB S W/CONTROLLED ATMOSPHERIC FURNACE BRAZER ANDLEARNI HILDA NG OCULAR DEVIJ W/I&R SPX FITTING 50566 FAMILY EZEKIEL, SPECTACLE 9 EYECARE ZEINAB S S XCPT ASSOCIATE APHAKIA S MONOFOCAL OPHTH 01582 FAMILY FALCON MEDICAL 9 EYECARE ZEINAB S XM&EVAL ASSOCIATE COMPRE S NEW PT 1/> VST FRAMES V2020 FAMILY FALCON PURCHASES 9 EYECARE ZEINAB S ASSOCIATE S 1 VISN V2103 FAMILY FALCON, PLANO 9 EYECARE ZEINAB S TO+/-4.00 ASSOCIATE D SPHER S 0.12-2.00 D CYL EA DETERMINA 33834 FAMILY FALCON TION 9 EYECARE ZEINAB S [place] [address] HATTIE KUHN STREPTOCO 9 CO [facility] A CUL BACT 03244 HATTIE KUHN XCPT 9 [facility] URINE [facility] BLOOD/STO OL AEROBIC ISOL ANTIBODY 67283 HATTIE KUHN INFLUENZA 9 [facility] CUL BACT 54759 HATTIE KUHN XCPT 9 [facility] URINE [facility] BLOOD/[place] [address] HATTIE KUHN STREPTOCO 9 [facility] [place] [address] HATTIE KUHN STREPTOCO 9 [facility] CUL BACT 73493 HATTIE KUHN XCPT 9 [facility] URINE [facility] BLOOD/STO OL AEROBIC ISOL THER 85393 HATTIE KUHN PROPH/DX 8 CO [facility] SUBQ/IM RADIOLOGI 29764 Alex GUTHRIE EXAMINATI RADIOLOGY ON FOOT 2 VIEWS ASSOCIATE S PSYCHIATRIC RADIOLOGI 95315 Alex GUTHRIE EXAMINATI RADIOLOGY ON ANKLE 2 VIEWS ASSOCIATE S PSYCHIATRIC RADEX 60256 HATTIE KUHN ANKLE 8 CO [facility] MINIMUM 3 VIEWS RADIOLOGI 79150 HATTIE Johnson 8 CO [facility] ON KNEE 3 VIEWS RADIOLOGI 22035 Alex GUTHRIE S EXAMINATI RADIOLOGY ON KNEE 1/2 VIEWS ASSOCIATE S PSC RADEX 50728 HATTIE REILLYS FOOT 8 CO CO COMPLETE [facility] MINIMUM 3 VIEWS DEMO&/KERWIN 18784 INGE ALCAZAR, L OF PT 8 CHAD B CHAD B UTILIZ AERSL GEN/NEB/I NHLR/IP INTRACUTA 62852 INGE ALCAZAR, NEOUS 8 CHAD B CHAD B TESTS W/ALLERGE KIERA EXTRACTS PERCUTANE 68581 INGE ALCAZAR, OUS TESTS 8 CHAD B CHAD B W/ALLERGE KIERA EXTRACTS BRNCDILAT 04599 INGE ALCAZAR, RSPSE 8 CHAD B CHAD B SPMTRY PRE&POST- BRNCDILAT [facility] 10492 [facility] DISCHARGE 7 Y OF [facility] MANAGEMEN PEDIA T 30 MIN/< SBSQ 42936 [facility] 7 Y OF [facility] CARE/DAY [place] 25 PEDIA MINUTES SBSQ 99223 [facility] 7 Y OF [facility] CARE/DAY [place] 25 PEDIA MINUTES INITIAL 47879 [facility] 7 Y OF CARE/DAY [place] 70 PEDIA MINUTES ECG 66467 [facility] ROUTINE 7 Y OF ECG [place] W/LEAST PEDIA 12 LDS W/I&R Encounters Encounter Start End Date Code Location Performer Type Date OFFICE 78455 [facility] 7 7 ASTHMA III T NEW 45 ASSOC OF MINUTES TH OFFICE 72921 VELIA SCHMITZ-SHANON OUTPATIEN 7 7 CLINIC SE T VISIT 15 MINUTES [facility] ANABAPTISM - 7 7 HEALTH OUTPATIEN [place] T PERIODIC 35666 [facility] 7 7 [facility] E MED EST HLTH DEPT HLTH DEPT PATIENT KIERA KIERA 18-39 YRS [facility] ANABAPTISM [facility] 7 7 [facility] [place] [facility] 7 7 [facility] T OFFICE 67528 [facility] 7 7 [facility] T VISIT [facility] DEPT [facility] DEPT 10 KIERA KIERA MINUTES OFFICE 11828 ANABAPTISM [facility] 7 7 HEALTH T NEW 60 MEDICAL MINUTES [facility] A[facility] - 7 7 [facility] 07404 [facility] 7 7 EMERGENCY VISIT PHYS PSC HIGH SEVERITY& THREAT FUNCJ OFFICE 00188 NONA NONA [facility] 7 7 T NEW 20 MINUTES OFFICE 77159 KASI VILLAGOMEZ [facility] 7 7 PHYSICIAN T VISIT PRACTICE 15 L MINUTES OFFICE 02988 VELIA BARNETT [facility] 7 7 CLINIC SE T VISIT 15 MINUTES EMERGENCY 34145 CLEMENT MUNIZ 7 7 PHYSICIAN DEPARTMEN S, PLL T VISIT HIGH/URGE NT SEVERITY EMERGENCY 51658 MIMI 7 7 [facility] DEPARTMEN INC T VISIT LOW/MODER SEVERITY HOSPITAL [facility]I - 7 7 [facility] 64788 [facility] T VISIT [facility] DEPT [facility] DEPT 10 KIERA KIERA MINUTES OFFICE 61836 VELIA LEZAMA [facility] 7 7 CLINIC T VISIT 15 MINUTES [facility]ENC[facility] 63991 [facility] 6 [facility] T VISIT MODERATE SEVERITY EMERGENCY 25179 [facility] 6 6 DARRIN PAT DEPARTMEN EMERGENCY T VISIT PHYS HIGH/URGE NT SEVERITY [facility]OS[facility] [place] - 6 6 [facility] OFF[facility] 14417 [facility] 6 6 [facility] T VISIT 5 HLTH DEPT TH DEPT MINUTES KIERA KIERA OFFICE 11018 [facility] 6 6 [facility] T VISIT HLTH DEPT TH DEPT 10 KIERA KIERA MINUTES OFFICE 31340 VELIA SCHMITZ- OUTPATIEN 6 6 CLINIC SE SARAH T VISIT 15 MINUTES EMERGENCY 10853 [place] 6 6 [facility] T VISIT LOW/MODER SEVERITY [facility] 6 [facility] T EMERGENCY 67544 [facility] 6 6 DARRIN [facility] EMERGENCY T VISIT PHYS MODERATE SEVERITY EMERGENCY 61258 [facility] [address] [facility] EMERGENCY T VISIT PHYS HIGH/URGE NT SEVERITY EMERGENCY 96280 [facility] 6 [facility] T VISIT MODERATE SEVERITY [facility] 6 [facility] T PERIODIC 93289 [facility] 6 6 [facility] E MED EST [facility] DEPT [facility] DEPT PATIENT KIERA KIERA 18-39 YRS EMERGENCY 32648 [facility] 6 6 DARRIN [facility] EMERGENC[facility] T VISIT PHYS HIGH/URGE NT SEVERITY EMERGENCY 94968 [place] 6 6 [facility] T VISIT MODERATE SEVERITY [facility] 6 [facility] T [facility] 6 [facility] T OFFICE 68947 BLACK DELCID [facility] 6 6 DIGESTIVE CEC T VISIT CARE 25 CENTER MINUTES OFFICE 32052 VELIA SCHMITZ- OUTPATIEN 6 6 CLINIC SE SARAH T VISIT 25 MINUTES OFFICE 44979 [facility] 6 6 [facility] T VISIT TH DEPT HLTH DEPT 10 KIERA KIERA MINUTES OFFICE 86070 VELIA OATES OUTPATIEN 6 6 CLINIC T VISIT 15 MINUTES OFFICE 50219 BLACK DELCID OUTPATIEN 6 6 DIGESTIVE CEC T NEW 45 CARE MINUTES CENTER OFFICE 51214 VELIA BARNETT OUTPATIEN 6 6 CLINIC SE SARAH T VISIT 15 MINUTES OFFICE 50128 HATTIE RESENDIZ OUTPATIEN 6 6 [facility] T VISIT URGENT 25 TREAT MINUTES OFFICE 72661 [facility] 6 6 [facility] T VISIT TH DEPT [facility] DEPT 10 KIERA KIERA MINUTES OFFICE 52853 HATTIE RESENDIZ OUTPATIEN 6 6 [facility] T VISIT URGENT 25 TREAT MINUTES EMERGENCY 60120 VORKPOR VORKPOR 5 5 [facility] DEPARTMEN T VISIT HIGH/URGE NT SEVERITY OFFICE 88837 HATTIE RESENDIZ OUTPATIEN 5 5 [facility] T VISIT URGENT 25 TREAT MINUTES OFFICE 62139 [facility] 5 5 [facility] T VISIT TH DEPT [facility] DEPT 10 KIERA KIERA MINUTES OFFICE 58504 EAR, NOSE SHASHY CONSULTAT 5 5 AND MIRANDA ION THROAT NEW/ESTAB SPECIAL PATIENT 60 MIN OFFICE 95933 HATTIE RESENDIZ OUTPATIEN 5 5 [facility] T VISIT URGENT 25 TREAT MINUTES EMERGENCY 03306 [facility] VORKPOR 5 5 [facility] DEPARTMEN T VISIT HIGH/URGE NT SEVERITY INITIAL 71964 [facility] 5 5 [facility] E TH DEPT [facility] DEPT MEDICINE KIERA KIERA NEW PT AGE 18-39YRS EMERGENCY 70651 CLEMENT HERNADEZ 5 5 PHYSICIAN DEPARTMEN S, PLLC T VISIT MODERATE SEVERITY EMERGENCY 62330 [facility]I 5 5 [facility] DEPARTMEN INC T VISIT LOW/MODER SEVERITY HOSPITAL MIMI - 5 5 [facility] 09861 [place] 5 5 [facility] T VISIT HIGH/URGE NT SEVERITY [facility] [place] - 5 5 [facility] T EMERGENCY 22924 HERBERTH KEVIN DEPT 5 5 EDW EDW VISIT HIGH SEVERITY& THREAT [facility] 5 5 [facility] T OFFICE 19077 VELIABHAVIK SCHMITZ- [facility] 5 5 CLINIC SE SARAH T VISIT 15 MINUTES OFFICE 47861 VELIA SCHMITZ- [facility] 5 5 CLINIC SE SARAH T VISIT 15 MINUTES EMERGENCY 50750 [place] 5 5 [facility] T VISIT HIGH/URGE NT SEVERITY [facility] - 5 5 [facility] OFFICE 63325 INGE INGE [facility] 5 5 CHAD CHAD T VISIT 25 MINUTES OFFICE 12719 VELIA OATES [facility] 4 4 CLINIC T VISIT 15 MINUTES EMERGENCY 46376 SESAR HERNADEZ DEPT 4 4 VISIT HIGH SEVERITY& THREAT FUN OFFICE 58964 MEANS BUTROS OUTPATIEN 4 4 ADULT MARISEL T VISIT PRIMARY 15 CARE CLI MINUTES HOSPITAL MIMI - 4 4 [facility] OFF[facility] 93847 VELIA OATES [facility] 4 4 CLINIC T VISIT 15 MINUTES OFFICE 94493 MEANS BUTROS OUTPATIEN 4 4 ADULT MARISEL T VISIT PRIMARY 15 CARE CLI MINUTES OFFICE 79922 [facility]ELIA [facility]ATES [facility] 4 4 CLINIC T VISIT 15 MINUTES HOSPITAL MIMI - 4 4 [facility] OUTPATIEN INC T EMERGENCY 84114 DEANGELO ESQUIVELEY 4 4 [facility] T VISIT MODERATE SEVERITY OFFICE 40829 MEANS BUTROS OUTPATIEN 4 4 ADULT MARISEL T VISIT PRIMARY 15 CARE CLI MINUTES EMERGENCY 01230 MIMI 4 4 [facility] DEPARTMEN INC T VISIT LOW/MODER SEVERITY OFFICE 41966 VELIA SCHMITZ- OUTPATIEN 4 4 CLINIC [facility] SARAH T VISIT 15 MINUTES OFFICE 43976 VELIA SCHMITZ- OUTPATIEN 4 4 CLINIC SE SARAH T VISIT 15 MINUTES OFFICE 86684 MEANS BUTROS OUTPATIEN 4 4 ADULT MARISEL T VISIT PRIMARY 15 CARE CLI MINUTES OFFICE 25700 INTEGRITY RICHARDS, OUTPATIEN 4 4 JR. GAUTAM T VISIT ORTHOPAED 15 ICS SPORT MINUTES HOSPITAL [facility] - 4 4 [facility] OUTPATIEN AUSTEN T EMERGENCY 63897 FLAVIO FLAVIO 4 4 JANA JANA DEPARTMEN T VISIT MODERATE SEVERITY OFFICE 61954 INTEGRITY CHATTHA OUTPATIEN 4 4 SHANNON T VISIT ORTHOPAED 15 ICS SPORT MINUTES OFFICE 13938 VELIA SCHMITZ- OUTPATIEN 4 4 CLINIC SE SARAH T VISIT 15 MINUTES OFFICE 14777 CHATTHA CHATTHA OUTPATIEN 4 4 SHANNON SHANONN T NEW 30 MINUTES OFFICE 98981 LUIS FERNANDO LUIS FERNANDO CONSULTAT 4 4 LES LES ION NEW/ESTAB PATIENT 40 MIN OFFICE 92168 VELIA RICHARDSON OUTPATIEN 4 4 CLINIC SERA T VISIT 25 MINUTES OFFICE 33241 VELIA SCHMITZ- OUTPATIEN 4 4 CLINIC SE SARAH T VISIT 15 MINUTES OFFICE 64218 [place] [facility]EP[facility] OUTPATIEN 4 4 [place] T VISIT 15 MINUTES OFFICE 89882 [place] [facility] OUTPATIEN 4 4 [place] T VISIT 15 MINUTES HOSPITAL [facility] - 4 4 [address] OUTPATIEN HATTIE T CO HOS HOSPITAL [facility], - 4 4 [address] OUTPATIEN HATTIE T CO HOS OFFICE 02609 ZEPED[facility] ZEPEDA OUTPATIEN 4 4 [place] T VISIT 10 MINUTES OFFICE 47469 INEG INGE OUTPATIEN 4 4 CHAD CHAD T VISIT 25 MINUTES OFFICE 40195 [facility] 4 4 [place] T VISIT 15 MINUTES OFFICE 41759 ASTRID RESENDIZ OUTPATIEN 4 4 KAREN JONES T VISIT 15 MINUTES PERIODIC 18327 [facility] 4 4 [place] E MED EST PATIENT 12-YRS EMERGENCY 28743 [facility], 4 [address] DEPARTMEN HATTIE T VISIT CO HOS HIGH/URGE NT SEVERITY HOSPITAL [facility], - 4 4 MA[address] OUTPATIEN HATTIE T CO HOS OFFICE 31994 [facility] 4 4 [place] T VISIT 10 MINUTES OFFICE 70656 [place] [facility]EP[facility] OUTPATIEN 3 3 [place] T VISIT 15 MINUTES OFFICE 81949 INGE INGE OUTPATIEN 3 3 CHAD CHAD T VISIT 25 MINUTES OFFICE 81917 [facility] 3 3 [place] T VISIT 15 MINUTES HOSPITAL [facility], - 3 3 MA[address] OUTPATIEN HATTIE T CO HOS OFFICE 46957 INGE INGE OUTPATIEN 3 3 CHAD CHAD T VISIT 15 MINUTES HOSPITAL [facility], - 3 3 [address] OUTPATIEN HATTIE T CO HOS OFFICE 38273 [facility] 3 3 KAREN JONES T VISIT 15 MINUTES OFFICE 91017 INGE ALCAZAR CONSULTAT 3 3 CHAD HUGO NEW/ESTAB PATIENT 80 MIN HOSPITAL [place] - 3 3 [facility] T OFFICE 94980 [facility] 3 3 [place] T [facility]IT 15 MINUTES HOSPITAL [place] - 3 3 [facility] T OFFICE 79577 ALLRAN JR ALLRAN JR CONSULTAT 3 3 KASSANDRA HUGO NEW/ESTAB PATIENT 40 MIN OFFICE 57399 [facility] 3 3 [place] T VISIT 15 MINUTES HOSPITAL [facility] - 3 3 [address] HATTIE T CO HOS OFFICE 68823 [facility] 3 3 KAREN JONES T VISIT 15 MINUTES EMERGENCY 07501 KARI PIERCE 3 3 MARIANA MARIANA [facility] T VISIT HIGH/URGE NT SEVERITY HOSPITAL [facility], - 3 3 [address] INPATIENT [facility] HOS HOSPITAL [facility] - 3 3 [facility], - 3 3 [address] OUTPATIEN HATTIE CO HOS OFFICE 79024 AHMED ADN AHMED ADN OUTPATIEN 3 3 T VISIT 15 MINUTES OFFICE 78659 VITOR ADLER OUTPATIEN 3 3 TONYA TONYA T NEW 30 MINUTES OFFICE 87049 VELIA SCHMITZ- OUTPATIEN 3 3 CLINIC [facility] SARAH T VISIT 15 MINUTES HOSPITAL [facility], - 3 3 [address] OUTPATIEN HATTIE T CO HOS OFFICE 66783 VELIA SCHMITZ- OUTPATIEN 3 3 CLINIC SE SARAH T NEW 30 MINUTES OFFICE 17344 MARYANN MARYANN OUTPATIEN 3 3 ALICIAAlfreda KINCAIDZ T VISIT 40 MINUTES OFFICE 81360 AHMED ADN AHMED ADN OUTPATIEN 2 2 T VISIT 15 MINUTES OFFICE 58799 [facility] OUTPATIEN 2 2 T MANUEL T MANUEL T VISIT 25 MINUTES HOSPITAL UNIVERSIT - 2 2 Y OUTPATIEN HOSPITAL T HOSPITAL [facility], - 2 2 [address] R[address]TE OUTPATIEN HATTIE T CO HOS EMERGENCY 36406 [facility], 2 [address] DEPARTMEN HATTIE T VISIT CO HOS LOW/MODER SEVERITY OFFICE 31032 AHMED ADN AHMED ADN OUTPATIEN 2 2 T VISIT 15 MINUTES OFFICE 65915 [facility], OUTPATIEN 2 2 [address] T VISIT 5 HATTIE MINUTES CO HOS HOSPITAL [facility], - 2 2 MA[address] OUTPATIEN HATTIE T CO HOS OFFICE 75641 AHMED ADN AHMED ADN OUTPATIEN 2 2 T NEW 60 MINUTES OFFICE 22785 FL[facility]ENHOF FLOMEN[facility]OF CONSULTAT 2 2 T MANUEL T MANUEL ION NEW/ESTAB PATIENT 40 MIN HOSPITAL [facility]ERS[facility] - 2 2 [facility] T EMERGENCY 24162 [facility], 2 [address] DEPARTMEN HATTIE T VISIT CO HOS LIMITED/M INOR PROB EMERGENCY 28852 [facility], 2 2 [address] DEPARTMEN HATTIE T VISIT CO HOS MODERATE SEVERITY HOSPITAL [facility], - 2 2 [facility] OUTPATIEN HATTIE T CO HOS OFFICE 60421 MD DIEGO CORTEZ MD OUTPATIEN 2 2 STEPHEN STEPHEN T VISIT 15 MINUTES OFFICE 46701 SARY OKEEFE CONSULTAT 2 2 JOSE JOSE ION NEW/ESTAB PATIENT 60 MIN HOSPITAL [place] [facility] 2 2 [facility] OFFICE 97584 PER ALBARADO JR OUTPATIEN 2 2 VIRGINIE VIRGINIE T VISIT 15 MINUTES HOSPITAL [place] - 2 2 [facility] T EMERGENCY 58149 SESAR HERNADEZ DEPT 2 2 VISIT HIGH SEVERITY& THREAT FUNCJ EMERGENCY 24784 GORGEON 2 2 [facility] T VISIT HIGH/URGE NT SEVERITY OFFICE 00582 PER ALBARADO JR OUTPATIEN 2 2 VIRGINIE VIRGINIE T VISIT 15 MINUTES OFFICE 09808 MD DIEGO CORTEZ MD OUTPATINANCI 2 2 STEPHEN STEPHEN T VISIT 15 MINUTES OFFICE 96011 JEFE MAYBERRY DARRION OUTPATIEN 2 2 T VISIT 15 MINUTES OFFICE 44673 JEFE MAYBERRY DARRION OUTPATIEN 2 2 T VISIT 25 MINUTES OFFICE 64302 JEFE MAYBERRY DARRION OUTPATIEN 2 2 T VISIT 15 MINUTES OFFICE 14311 JEFE MAYBERRY DARRION OUTPATIEN 1 1 T VISIT 15 MINUTES OFFICE 37190 JEFE MAYBERRY DARRION OUTPATIEN 1 1 T VISIT 15 MINUTES HOSPITAL HATTIE - 1 1 [facility] T EMERGENCY 11587 HATTIE 1 1 [facility] T VISIT LIMITED/M INOR PROB EMERGENCY 18180 HATTIE 1 1 [facility] T VISIT LOW/MODER SEVERITY OFFICE 48959 MD DIEGO CORTEZ MD OUTPATIEN 1 1 STEPHEN MITCHELL T NEW 30 MINUTES EMERGENCY 50737 HIEN STEVE 1 1 [facility] T VISIT FOUNDATIO HIGH/URGE NT SEVERITY EMERGENCY 95778 UNIVERSIT DEPT 1 1 Y VISIT HOSPITAL HIGH SEVERITY& THREAT [facility] UNIVERSIT - 1 1 Y [facility] T EMERGENCY 11986 HATTIE 1 1 CO [facility] T VISIT HIGH/URGE NT SEVERITY HOSPITAL HATTIE - 1 1 [facility] T EMERGENCY 68016 [place] 1 1 [facility] T VISIT HIGH/URGE NT SEVERITY [facility]OSPITAL [place] - 1 1 [facility] OFFICE 41267 REJI MAYBERRY DARRION OUTPATIEN 1 1 MEDICAL T VISIT CLINIC 25 MINUTES HOSPITAL HATTIE - 1 1 [facility] EMERGENCY 59954 HATTIE 1 1 [facility] T VISIT LOW/MODER SEVERITY OFFICE 43499 REJI MAIER OUTPATIEN 1 1 MEDICAL T VISIT CLINIC 25 MINUTES OFFICE 41608 SPIREK SPIRSANTOS OUTPATIEN 0 0 ANI ANI T VISIT 15 MINUTES EMERGENCY 32164 HATTIE DEPT 0 0 CO VISIT HOSPITAL HIGH SEVERITY& THREAT [facility] HATTIE - 0 0 [facility] T OFFICE 12963 REJI ALBARADO VIRGINIE OUTPATIEN 0 0 MEDICAL T VISIT CLINIC 15 MINUTES EMERGENCY 32877 HATTIE 0 0 CO [facility] T VISIT MODERATE SEVERITY HOSPITAL HATTIE - 0 0 [facility]PITAL [place] - 0 0 [facility] T OFFICE 88693 REJI ALBARADO OUTPATIEN 0 0 MEDICAL DINAH R T VISIT CLINIC 25 MINUTES OFFICE 07826 SPIREK, SPIREK, OUTPATIEN 0 0 MONROE J MONROE J T NEW 30 MINUTES OFFICE 96426 REJI ALBARADO OUTPATIEN 0 0 MEDICAL DINAH R T VISIT CLINIC 25 MINUTES PERIODIC 01032 REJI ALBARADO, PREVENTIV 0 0 MEDICAL DINAH R E MED EST CLINIC PATIENT 12-17YRS OFFICE 07383 [place] GONZALO OUTPATINANCI 9 9 RICKEY GILLIAM A T VISIT INTERNAL 15 MED MINUTES HOSPITAL HATTIE Gong 9 9 CO [facility] T EMERGENCY 85466 HATTIE 9 9 CO [facility] T VISIT LOW/MODER SEVERITY EMERGENCY 30463 HATTIE JAIN 9 9 CO , [facility] T VISIT MODERATE SEVERITY HOSPITAL HATTIE Gong 9 9 CO [facility] T OFFICE 32694 [place] GONZALO OUTPATINANCI 9 9 RICKEY Da Silva T VISIT INTERNAL 15 MED MINUTES HOSPITAL HATTIE Gong 9 9 CO [facility] T OFFICE 24073 [place] JOHN OUTPATIEN 9 9 [facility], T VISIT INTERNAL MOODY F 15 MED MINUTES OFFICE 03327 [place] SIENA OUTPATINANCI 9 9 [place] [facility] T VISIT INTERNAL 10 MED MINUTES HOSPITAL HATTIE Gong 9 9 CO [facility] HATTIE Gong 9 9 CO [facility] T EMERGENCY 17875 HATTIE 8 8 CO [facility] T VISIT LIMITED/M INOR PROB HOSPITAL HATTIE - 8 8 CO [facility] T EMERGENCY 58174 HATTIE 8 8 CO [facility] T VISIT LIMITED/M INOR PROB HOSPITAL HATTIE - 8 8 [facility] T EMERGENCY 11921 HATTIE BLANK, 8 8 CO [facility] T VISIT LOW/MODER SEVERITY OFFICE 97772 KRYS UMAÑA 8 8 [facility] VISIT INTERNAL 10 MED MINUTES OFFICE 60532 INGE ALCAZAR, CONSULTAT 8 8 CHAD B CHAD B ION NEW/ESTAB PATIENT 40 MIN OFFICE 03228 KRYS UMAÑA 8 8 [place] [facility] VISIT INTERNAL 15 MED MINUTES
--- OUTSIDE RECORDS SUMMARY | 2017-09-01 10:22 | External Medical Summary Rpt | CCD ---
Author Author , SJ Hunter SJ Address Unknown Phone [email or web address] Care Team Providers Care Nurse Chemical Dependency Name Role Phone [employer] Unavailable Unavailable INC, [employer] AHMED ADN, AHMED ADN Unavailable Unavailable AHMED ADN, AHMED ADN Unavailable Unavailable [facility]available [facility]available [facility] ALLRAN JR KASSANDRA, ALLRAN Unavailable Unavailable JR KASSANDRA BANGLADESHI AMBULETT & Unavailable Unavailable AMBULANC, BANGLADESHI AMBULETT & AMBULANC BANGLADESHI AMBULETT & Unavailable Unavailable AMBULANC, BANGLADESHI AMBULETT & AMBULANC LUIS FERNANDO LES, LUIS FERNANDO Unavailable Unavailable LES LUIS FERNANDO LES, LUIS FERNANDO Unavailable Unavailable LES [facility] Unavailable Unavailable [place], [facility] Unavailable Unavailable [facility], [facility] BEINEKE NANI, BEINEKE Unavailable Unavailable NANI CURRAN AURORA, CURRAN Unavailable Unavailable AURORA BESSON, MANE A, Unavailable Unavailable BESSON, MANE A [employer] Unavailable Unavailable INC., [employer] LEZAMA, LEZAMA Unavailable Unavailable LEZAMA LASHON, LEZAMA LASHON Unavailable Unavailable [facility] Unavailable Unavailable HOSPITAL, [facility] Unavailable Unavailable PRACTICE L, [facility] [employer] Unavailable Unavailable CORBIN JAM, CORBIN JAM Unavailable Unavailable [facility], Unavailable Unavailable [facility] SARAH, Unavailable Unavailable [facility] SARAH BUTROS MARISEL, BUTROS Unavailable Unavailable MARISEL [facility], Unavailable Unavailable [facility] PIERCE MARIANA, PIERCE Unavailable Unavailable MARIANA PIERCE MARIANA, PIERCE Unavailable Unavailable MARIANA [facility] Unavailable Unavailable [facility], [facility] Unavailable Unavailable [facility]OC, [facility] ANNE ALDEN, ANNE Unavailable Unavailable ALDEN CHATTHA SHANNON, CHATTHA Unavailable Unavailable SHANNON [facility] Unavailable Unavailable [place] ANIBAL, CARRENO Unavailable Unavailable ANIBAL CARRENO ANIBAL, CARRENO Unavailable Unavailable ANIBAL [facility], [...] [facility] MCINTYRE, MCINTYRE Unavailable Unavailable [facility] Unavailable Unavailable GROUP PS, [facility] Unavailable Unavailable [facility], [facility], Unavailable Unavailable [facility] Unavailable Unavailable HOLDING, [facility] Unavailable Unavailable [facility]INGS, [facility] Unavailable Unavailable [facility], [facility] Unavailable Unavailable HOLDINGS, [facility] [employer] [facility], Unavailable Unavailable [facility] [employer] [facility] ADLER TONYA, ADLER Unavailable Unavailable TONYA [...] B MAUL PRANAV, MAUL PRANAV Unavailable Unavailable [facility] Unavailable Unavailable ASSOCIAT, [facility] MOODY LOPEZ JR Unavailable Unavailable F, JOHN RODRIGUEZ, MOODY F [facility] Unavailable Unavailable [facility], [facility], PRIMARY CARE NURSE PRACTITIONER [place] Unavailable Unavailable [facility], [facility] NURSE PRACTITION[facility] MAYBERRY DARRION, MAYBERRY DARRION Unavailable Unavailable MAYBERRY DARRION, MAYBERRY DARRION Unavailable Unavailable [facility], Unavailable Unavailable [facility] HERBERTH EDW, HERBERTH Unavailable Unavailable EDW HERBERTH EDW, HERBERTH Unavailable Unavailable EDW MD STEPHEN CORTEZ, DIEGO, Unavailable Unavailable MD MITCHELL ROBERTS [place], Unavailable Unavailable [facility] Unavailable Unavailable AMBULANCE SE, [facility] Unavailable Unavailable AMBULANCE SE, [facility] Unavailable Unavailable URGENT TREAT, [facility], Unavailable Unavailable PLLC, [facility] SCHULTE CHR, SCHULTE CHR Unavailable Unavailable SCHUL[facility] CH[facility], [facility] Unavailable [facility]available [facility] Unavailable Unavailable LAB, [facility] PICKLESIMER JR RADAMES, Unavailable Unavailable PICKLESIMER JR RADAMES [facility], [facility] PRAKASH MUH, PRAKASH Unavailable Unavailable MUH TEE JAIN, Unavailable Unavailable TEE JAIN JR. JAM, Unavailable Unavailable JR. LOTUS RICHARDS RUSSELL Unavailable Unavailable SCALF, SCALF Unavailable Unavailable SCALF FERMÍN, SCALF FERMÍN Unavailable Unavailable SHASHY MIRANDA, SHASHY Unavailable Unavailable MIRANDA ENGEL NANI, ENGEL Unavailable Unavailable NANI NILDA MIRANDA, NILDA MIRANDA Unavailable Unavailable SOKAN BAB, SOKAN BAB Unavailable Unavailable [facility], Unavailable Unavailable [facility] Unavailable Unavailable EQUIPME, [facility] Unavailable Unavailable EMERGENCY PHYS, [facility] SPIREK ANI, SPIREK Unavailable Unavailable ANI SPIREK ANI, SPIREK Unavailable Unavailable ANI SPIREK, MONROE J, Unavailable Unavailable SPIREK, MONROE J [facility] Unavailable Unavailable [facility], [facility] EVI MAR, EVI Unavailable Unavailable MAR [facility] Un[facility] Unavailable [facility], [facility] BROOKS DIOGENES, BROOKS Unavailable Unavailable DIOGENES SWINEY PAT, SWINEY Unavailable Unavailable PAT SWINEY PAT, SWINEY Unavailable Unavailable PAT TANOUS, JR EDW, Unavailable Unavailable TANOUS, JR EDW TANOUS, JR EDW, Unavailable Unavailable TANOUS, JR EDW ELADIO, ELADIO Unavailable Unavailable MONTILLA MOL, MONTILLA MOL Unavailable Unavailable [facility] Un[facility] Unavailable LLC, [facility] MARYANN ALICIA, MARYANN Unavailable Unavailable ALICIA MARYANN ALICIA, MARYANN Unavailable Unavailable [facility], Unavailable Unavailable [facility] VILLAFLOR OSI, Unavailable Unavailable VILLAFLOR OSI VILLAFLOR OSI, Unavailable Unavailable VILLAFLOR OSI VORKPOR EMIGDIO, VORKPOR Unavailable Unavailable EMIGDIO VORKPOR EMIGDIO, VORKPOR Unavailable Unavailable EMIGDIO [facility] Unavailable Unavailable #[id number], [id number] # Unavailable Unavailable [id number], [facility] # [id number] [facility] Unavailable [facility]available DEPT KIERA, [facility] DE[facility] KIER[facility] Unavailable Unavailable DEPT KIERA, [facility] DE[facility] KIERA YONGBANG ALB, Unavailable Unavailable [facility] YOUNG VIRGINIE, YOUNG VIRGINIE Unavailable Unavailable YOUNG JR VIRGINIE, YOUNG Unavailable Unavailable JR VIRGINIE YOUNG JR VIRGINIE, YOUNG Unavailable Unavailable JR VIRGINIE YOUNG, DINAH R, Unavailable Unavailable YOUNG, DINAH R [facility], Unavailable [facility]available [facility] RADHA, RADHA Unavailable Unavailable RADHA MAT, RADHA MAT Unavailable Unavailable VALERIE GARCIA, Unavailable Unavailable VALERIE GARCIA Purpose Continuity of Care Document - 02-19-2007 through 2016 Problems Code Diagnosis DOS Provider Status R21 RASH AND 08-01-2017 [facility] NONSPECIFIC ASSOC OF TH SKIN ERUPTION [id number] ADVERS EFF 08-01-2017 [facility] OTH RX MEDS [facility] BIO ASSOC OF SUBSTANCES INIT ENC [id number] ANAPHYLACTI 08-01-2017 [facility] C SHOCK AST[facility] UNSPECIFIED ASSOC OF TH INITIAL ENCOUNTER J029 ACUTE 06-27-2017 [facility]IS [facility] UNSPECIFIED J4521 MILD 06-27-2017 [facility] INTERMITTEN CLINIC T ASTHMA WITH ACUTE EXACERBATIO N R198 OTH SPEC SX 06-13-2017 [facility] IN[facility] THE [place] DIGESTV SYS & ABD [id number] ENCOUNTER 06-07-2017 [facility] NUT FEEDER EXAM DISTRICT GENERAL RTN HLTH DEPT W/O [...] TEST RESULT KIERA NEGATIVE R5383 OTHER 06-06-2017 [facility]UE [facility] [place] Z0000 ENCOUNTER 06-06-2017 [facility] GEN ADULT [facility] MED EXAM [place] W/O ABNORMAL FIND K5900 CONSTIPATIO 05-16-2017 [facility] [place] [facility] UNSPECIFIED R109 UNSPECIFIED 05-16-2017 [facility] R197 DIARRHEA 05-16-2017 [facility] [place] UNSPECIFIED RADIOLOGY R8290 UNSPECIFIED 05-16-2017 [facility] ABNORMAL ELIZABETH FINDINGS IN HOLDINGS URINE [id number] TOX EFF 02-08-2017 [facility]B [facility] UNS SOURCE GROUP ACC INITIAL ENC R49281 MIGRAINE 02-07-2017 [facility] UNS NOT EMERGENCY INTRACT W/O PHYS PSC STATUS MIGRAINOSUS V66021 UNSPECIFIED 02-07-2017 [facility] ASTHMA HEALTH UNCOMPLICAT [place] ED 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 M4606 SPINAL 02-07-2017 NONA ENTHESOPATH Y LUMBAR REGION M545 LOW BACK 02-07-2017 NONA PAIN R47773 MUSCLE 02-07-2017 NONA SPASM OF BACK M9903 SEGMENTAL & 02-07-2017 NONA SOMATIC DYSFUNCTION OF LUMBAR REGION M9904 SEGMENTAL & 02-07-2017 NONA SOMATIC DYSFUNCTION OF SACRAL REGION R1110 VOMITING 02-07-2017 [facility]UNO [place]ETTE UNSPECIFIED URBAN COGOVT R410 DISORIENTAT 02-07-2017 [facility] [place] ION URBAN UNSPECIFIED COGOVT R4182 ALTERED 02-07-2017 [facility] STATUS ASSOC UNSPECIFIED R51 HEADACHE 02-07-2017 BRUNO [place] URBAN COGOVT R569 UNSPECIFIED 02-07-2017 [facility] CONVULSIONS [place] [id number] STRAIN 02-07-2017 NONA MUSCLE FASCIA & TENDON LOW BACK INITIAL Z833 FAMILY 02-07-2017 [facility] HISTORY OF HEALTH DIABETES [place] MELLITUS Z880 ALLERGY 02-07-2017 [facility] STATUS TO HEALTH PENICILLIN [place] Z888 ALLERGY 02-07-2017 [facility] STATUS OT HEALTH RX MEDS & [place] BIOLOG SUBSTANC STS J101 FLU D/T OTH 01-17-2017 [facility] ID FLU CLINIC VIRUS OTH RESP MANIFESTATI ONS R05 COUGH 01-17-2017 [facility] J209 ACUTE 12-24-2016 [facility]ON[facility]IS [facility] UNSPECIFIED INC J40 BRONCHITIS 12-24-2016 [facility], SPECIFIED PLLC ACUTE OR CHRONIC Z7689 PERSONS 12-15-2016 [facility] ENCOUNTER [facility] SR[facility] TH DEPT OTH KIERA CIRCUMSTANC ES J020 STREPTOCOCC 12-10-2016 [facility] AL [facility]INIC PHARYNGITIS S10352 PAIN IN 10-23-2016 [facility] RIGHT N EMERGENCY SHOULDER PHYS S75922 PAIN IN 10-23-2016 [facility] [place] RIGHT ELBOW RADIOLOGY N82711 PAIN IN 10-23-2016 [facility] [place] RIGHT KNEE RADIOLOGY R0781 PLEURODYNIA 10-23-2016 [facility] N EMERGENCY PHYS R0789 OTHER CHEST 10-23-2016 [facility] [place] PAIN RADIOLOGY W63271S ABRASION OF 10-23-2016 [facility] RIGHT N EMERGENCY ELBOW PHYS INITIAL ENCOUNTER E85939T ABRASION 10-23-2016 [facility] RIGHT KNEE N EMERGENCY INITIAL PHYS ENCOUNTER J95465 OTHER LONG 10-23-2016 [facility] DRUG THERAPY L299 PRURITUS 07-01-2016 [...] AGE R040 EPISTAXIS 06-07-2016 [facility] [place] [facility] R5020BZ CONTUSION 06-07-2016 [facility] NOSE N EMERGENCY [...] [facility] HOLDINGS N62 HYPERTROPHY 05-06-2016 LAB [facility] OF BREAST [facility] HOLDINGS R12 HEARTBURN 05-06-2016 [facility] HOLDINGS K219 GASTRO-ESOP 04-28-2016 [facility] REFLUX ANESTHESIA DISEASE GROUP PS WITHOUT ESOPHAGITIS A0839 OTHER VIRAL 01-15-2016 [facility] ENTERITIS [facility] URGENT TREAT J4530 MILD 01-15-2016 [facility] ASTHMA URGENT UNCOMPLICAT TREAT ED 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 KIERA J028 ACUTE 11-24-2015 [facility] PHARYNGITIS [facility] DUE TO URGENT OTHER SPEC TREAT ORGANISMS J4522 MILD 11-24-2015 [facility] T ASTHMA URGENT WITH STATUS TREAT ASTHMATICUS R062 WHEEZING 11-24-2015 [facility] URGENT TREAT R102 PELVIC AND 10-17-2015 VORKPOR EMIGDIO PERINEAL PAIN D529 FOLATE 09-10-2015 [facility] DEFICIENCY DISTRICT ANEMIA HLTH DEPT UNSPECIFIED KIERA Z23 ENCOUNTER 09-10-2015 [facility] FOR DISTRICT IMMUNIZATIO HLTH DEPT N KIERA R1310 DYSPHAGIA 09-05-2015 EAR, NOSE UNSPECIFIED AND THROAT SPECIAL R1313 DYSPHAGIA 09-01-2015 [facility] PHASE URGENT TREAT 5589 OTH&UNSPEC 06-14-2015 [facility] [facility] NONINFECTIO US GASTROENTER ITIS&COLITI S 16477 NAUSEA WITH 06-14-2015 [facility] [place] VOMITING RADIOLOGY 52129 ABDOMINAL 06-14-2015 RANI BEAL PAIN RIGHT LOWER QUADRANT V2549 SURVEILLANC 06-10-2015 [facility] E OTH PREV [facility] DE[facility] CONTRACEPT KIERA METHOD V2689 OTHER 06-10-2015 [facility] SPECIFIED DISTRICT PROCREATIVE [facility] DEPT MANAGEMENT KIERA 10613 ASTHMA, 05-08-2015 [facility] UNSPECIFIED [facility] UNSPECIFIED STATUS 34499 UNSPECIFIED 05-08-2015 [facility] SITE OF PHYSICIANS, ANKLE PLLC SPRAIN AND STRAIN 2299 BENIGN 05-06-2015 [facility] NEOPLASM OF [facility] UNSPECIFIED SITE 5990 URINARY 05-06-2015 SWINEY PAT TRACT INFECTION SITE NOT SPECIFIED 6202 OTHER AND 05-06-2015 SWINE[facility] PAT UNSPECIFIED OVARIAN CYST 51258 ABDOMINAL 05-06-2015 [facility] PAIN, [facility] SITE 7919 OTHER 05-06-2015 [facility] NONSPECIFIC [facility] FINDING [facility] EXAMINATION OF URINE V140 PERSONAL 05-06-2015 [place] HISTORY OF COMMUNITY ALLERGY TO HOSPITAL PENICILLIN V1582 PERS HX 05-06-2015 [place] TOBACCO USE [facility] PRESENTING [facility] HAZARDS HEALTH 04122 PAIN IN 02-22-2015 [facility] [place] JOINT RADIOLOGY PELVIC REGION AND THIGH 70058 CHEST PAIN 02-22-2015 [facility] UNSPECIFIED [facility] AMBULANCE SE 8470 NECK SPRAIN 02-22-2015 [facility] EDW AND STRAIN 8472 LUMBAR 02-22-2015 [facility] EDW SPRAIN AND STRAIN 9221 CONTUSION 02-22-2015 [facility] EDW OF CHEST WALL 9222 CONTUSION 02-22-2015 [facility] EDW OF ABDOMINAL WALL 50914 INJURY OF 02-22-2015 [facility] [place] FACE AND RADIOLOGY NECK OTHER AND UNSPECIFIED 92498 OTHER 02-22-2015 [facility] [place] INJURY OF RADIOLOGY OTHER SITES OF TRUNK 3688 OTHER 02-03-2015 [place] SPECIFIED MEDICAL VISUAL IMAGING ASS DISTURBANCE S 7231 CERVICALGIA 02-03-2015 [facility] 6259 UNSPEC 12-19-2014 [facility] [place] SYMPTOM RADIOLOGY ASSOC W/FEMALE GENITAL ORGANS 26553 ABDOMINAL 12-19-2014 [place] TENDERNESS [facility] RIGHT LOWER [facility]OSPITAL QUADRANT V1329 PERSONAL HX 12-19-2014 [facility]&OBST ETRIC D/O 7804 DIZZINESS 12-11-2014 [facility] AND CLINIC GIDDINESS 92156 ACUTE 12-03-2014 IN[facility] SEROUS CHAD OTITIS MEDIA 4770 ALLERGIC 12-03-2014 IN[facility] RHINITIS CHAD DUE TO POLLEN 4778 ALLERGIC 12-03-2014 INGE RHINITIS CHAD DUE TO OTHER ALLERGEN 23253 EXTRINSIC 12-03-2014 INGE ASTHMA, CHAD WITH EXACERBATIO N 0088 INTESTINAL 11-01-2014 RACHEL OLIVIER INFECTION DUE TO OTHER ORGANISM NEC 94267 DIARRHEA 11-01-2014 RACHEL SOY 5362 PERSISTENT 10-31-2014 KABA SATYA VOMITING 43551 SHORTNESS 10-27-2014 [place] [facility] 56154 ASTHMA 10-24-2014 [facility] UNSPECIFIED CLINIC WITH EXACERBATIO N 39445 UNSPECIFIED 10-23-2014 [facility] SLEEP PRIMARY DISTURBANCE CARE CLI 38281 INSOMNIA 10-23-2014 [facility]ULT UNSPECIFIED PRIMARY CARE CLI 3829 UNSPECIFIED 10-15-2014 [facility] OTITIS [facility] MEDIA HOLDINGS 462 ACUTE 10-15-2014 [facility] PHARYNGITIS [facility]INGS 08297 GENERALIZED 10-15-2014 [facility] PAIN [facility] HOLDINGS 0549 HERPES 10-10-2014 [facility] MENTION OF COMPLICATIO N 0340 STREPTOCOCC 10-09-2014 [facility] AL SORE CLINIC THROAT 91237 UNSPECIFIED 09-30-2014 [facility] INFECTIVE CLINIC OTITIS EXTERNA 7862 COUGH 09-30-2014 [facility] 4779 ALLERGIC 08-22-2014 [facility] RHINITIS PRIMARY CAUSE CARE CLI UNSPECIFIED 7245 UNSPECIFIED 08-22-2014 [facility]ULT BACKACHE PRIMARY CARE CLI 7177 CHONDROMALA 08-14-2014 [facility] S SPORT 31312 PAIN IN 08-10-2014 [facility] JOINT, [place] AUSTEN 71406 PAIN IN 07-30-2014 [place] JOINT, MEDICAL SHOULDER IMAGING ASS REGION 8409 SPRAIN&STRA 07-30-2014 FLAVIO JANA IN UNSPEC SITE SHOULDER&UP PER ARM E9288 OTHER 07-30-2014 FLAVIO JANA ACCIDENT 66290 SPRAIN AND 07-12-2014 SCHULTE CHR STRAIN OF DELTOID OF ANKLE 06800 UNSPECIFIED 06-11-2014 LUIS FERNANDO LES TINNITUS 80734 SUBJECTIVE 06-11-2014 [place] TINNITUS [facility]ICIAN PRACTICE L 3899 UNSPECIFIED 06-11-2014 [place] HEARING PHYSICIAN LOSS PRACTICE L 46428 UNSPECIFIED 06-06-2014 [facility] VAGINITIS CLINIC AND VULVOVAGINI TIS 7821 RASH AND 06-06-2014 [facility] OTHER CLINIC NONSPECIFIC SKIN ERUPTION 60997 UNSPECIFIED 05-31-2014 [facility] OTALGIA CLINIC 21494 PAIN IN 05-31-2014 [facility] JOINT, CLINIC ANKLE AND FOOT 09967 OTHER 02-25-2014 INGE CHRONIC CHAD ALLERGIC CONJUNCTIVI TIS 15399 EXTRINSIC 02-25-2014 INGE ASTHMA, CHAD UNSPECIFIED 7840 HEADACHE 02-13-2014 [facility] [place] 4659 ACUTE URIS 02-01-2014 ASTRID JONES OF UNSPECIFIED SITE V202 ROUTINE 01-14-2014 [facility] INFANT OR [place] CHILD HEALTH CHECK 80985 WHEEZING 12-20-2013 [facility] ANIBAL V0481 NEED 12-06-2013 [facility] PROPHYLACT [place] C VACCINATION &INOCULATIO N FLU 07375 UNSPECIFIED 11-08-2013 [facility] ACUTE [place] NONSUPPURAT MORENITA OTITIS MEDIA 4772 ALLERGIC 11-05-2013 [facility] RHINITIS CHAD DUE TO ANIMAL HAIR AND DANDER V727 DIAGNOSTIC 11-05-2013 IN[facility] SKIN AND CHAD SENSITIZATI ON TESTS 7295 PAIN IN 10-30-2013 [facility], SOFT PRIMARY CARE NURSE PRACTITIONER TISSUES OF [place] LIMB [facility]OS 7823 EDEMA 10-30-2013 [facility], PRIMARY CARE NURSE PRACTITIONER [place] [facility] 7881 DYSURIA 10-30-2013 [facility] [place] 9599 INJURY 10-30-2013 HAGENSCHNEI OTHER AND CARLOS LASHON UNSPECIFIED UNSPECIFIED SITE 88508 ACUT 10-11-2013 INGE SUPPRATV CHAD OTITIS MEDIA W/O SPONT RUP EARDRUM V720 EXAMINATION 10-11-2013 DREW OF EYES GRE AND VISION 20313 DISORDERS 10-09-2013 ASTRID NAN OF SOFT TISSUE UNSPECIFIED 4739 UNSPECIFIED 09-20-2013 [facility] SINUSITIS CHAD 38343 EXTRINSIC 09-20-2013 IN[facility] ASTHMA WITH CHAD STATUS ASTHMATICUS 16207 OBESITY, 09-07-2013 [facility] UNSPECIFIED [facility] 64116 CHRONIC 09-07-2013 JR TANIA CHOLECYSTIT EDW IS 5758 OTHER 09-07-2013 SIENNA ANT SPECIFIED DISORDER OF GALLBLADDER 5759 UNSPECIFIED 09-04-2013 [facility] [facility]ORDER [facility] GALLBLADDER V7284 UNSPECIFIED 09-04-2013 [facility] PRE-OPERATI HOSPITAL VE EXAMINATION 56655 ABDOMINAL 08-08-2013 RUSSEL RHO PAIN RIGHT UPPER QUADRANT 32862 VOMITING 07-28-2013 [facility], ALONE PRIMARY CARE NURSE PRACTITIONER [place] [facility] 486 PNEUMONIA, 06-20-2013 HAGENSCHNEI ORGANISM CARLOS LASHON UNSPECIFIED 4660 ACUTE 06-18-2013 PIERCE MARIANA BRONCHITIS 2150 OTH HANK 04-10-2013 ADLER TONYA NEOPLSM CNCTV&OTH SFT TISS HEAD FCE&NCK 78675 NEOPLASMS 04-10-2013 HOWARD JANA UNSPECIFIED NATURE OTH SPECIFIED SITES 65909 ESOPHAGEAL 04-10-2013 [facility] 7856 ENLARGEMENT 04-10-2013 [facility] NODES V7263 PRE-PROCEDU 04-02-2013 [facility], RAL PRIMARY CARE NURSE PRACTITIONER LABORATORY [place] EXAMINATION HOS 2893 LYMPHADENIT 03-26-2013 VITOR TONYA IS UNSPECIFIED EXCEPT MESENTERIC 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 7822 LOCALIZED 03-13-2013 [facility] SWELLING MASS OR LUMP 7831 ABNORMAL 02-28-2013 [facility], WEIGHT GAIN PRIMARY CARE NURSE PRACTITIONER [place] [facility] 7842 SWELLING 02-28-2013 [facility], MASS OR [facility] LUMP IN [place] HEAD AND HOS NECK V770 SCREENING 02-28-2013 [facility], FOR THYROID PRIMARY CARE NURSE PRACTITIONER DISORDER [facility] HOS V771 SCREENING 02-28-2013 [facility], FOR PRIMARY CARE NURSE PRACTITIONER DIABETES [facility] MELLITUS HOS 6119 UNSPECIFIED 12-07-2012 MARYANN ALICIA BREAST DISORDER 6262 EXCESSIVE 12-07-2012 MARYANN ALICIA OR FREQUENT MENSTRUATIO N 27955 OTHER 12-07-2012 MARYANN ALICIA MALAISE AND FATIGUE 55096 HEAD 11-08-2012 BANGLADESHI INJURY, AMBULETT & UNSPECIFIED AMBULANC 7291 UNSPECIFIED 11-01-2012 AHMED ADN MYALGIA AND MYOSITIS 65128 ABDOMINAL 11-01-2012 AHMED ADN PAIN OTHER SPECIFIED SITE 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 [facility] C MANUEL ESOPHAGITIS 2883 EOSINOPHILI 08-28-2012 [facility] 5368 DYSPEPSIA&O 08-28-2012 [facility] DISORDERS FUNCTION STOMACH 5379 UNSPECIFIED 08-28-2012 [facility] STOMACH HOSPI AND DUODENUM 5699 UNSPECIFIED 08-28-2012 [facility] INTESTINE 12527 NAUSEA 08-28-2012 [facility] 47207 ABDOMINAL 08-28-2012 [place] [facility], LEFT SERVICES LOWER QUADRANT 57397 ABDOMINAL 08-28-2012 [place] PA[facility], HOSPITAL GENERALIZED V643 PROCEDURE 08-27-2012 [facility], NOT CARRIED PRIMARY CARE NURSE PRACTITIONER OUT FOR [place] TELLO OTHER HOS REASONS 78661 SWELLING OF 08-25-2012 [facility], LIMB PRIMARY CARE NURSE PRACTITIONER [place] [facility]ER [facility]OS E8809 ACCIDENTAL 08-25-[facility] OR [facility] FROM OTHER ASSOCIAT STAIRS OR STEPS E8889 UNSPECIFIED 08-25-2012 AHMED ADN FALL 4610 ACUTE 08-01-2012 [facility] SINUS[facility] 65798 OPEN WOUND 03-07-2012 [place] TELLO LIP WITHOUT HOSPITAL MENTION COMPLICATIO N E8490 PLACE OF 03-07-2012 [place] TELL[facility] OCCURRENCE, HOSPITAL HOME E8888 OTHER FALL 03-07-2012 [facility] 6200 FOLLICULAR 12-27-2011 PER JR CYST OF [place] OVARY 3814 NONSUPPRATV 12-10-2011 JEFE DARRION OTITIS MEDIA NOT SPEC ACUT/CHRON V7231 ROUTINE 11-29-2011 PATHOLOGY & GYNECOLOGIC CYTOLOGY AL LAB EXAMINATION 4619 ACUTE 11-25-2011 JEFE DARRION SINUSITIS, UNSPECIFIED 83012 URINARY 11-25-2011 [facility] DARRION FREQUENCY 6260 ABSENCE OF 10-13-2011 [facility] 18354 PAIN IN 10-01-2011 [facility] JOINT, RADIOLOGY UPPER ARM ASSOCIAT 77157 CONTUSION 10-01-2011 [facility] TELLO OF [facility] 9593 INJURY 10-01-2011 [facility] OTHER&UNSPE RADIOLOGY CIFIED ASSOCIAT [facility]RI [address] 6252 MITTELSCHME 09-19-2011 [facility] OSI 69834 PAIN IN 06-16-2011 [facility] JOINT, HAND RADIOLOGY ASSOCIAT 7937 NONSPC ABN 06-16-2011 [facility] FINDNG RAD RADIOLOGY & OTH EXM ASSOCIAT [place] S[place] 25382 CLOS 06-16-2011 [facility] FRACTURE HOSPITAL MID/PROXIMA L PHALANX/PHA LANG HAND 29788 SPRAIN AND 06-16-2011 [facility] STRAIN OF HOSPITAL UNSPECIFIED SITE OF HAND 34216 CONTUSION 06-16-2011 [facility] OF HAND HOSPITAL 9594 INJURY 06-16-2011 [facility] OTHER AND RADIOLOGY UNSPECIFIED ASSOCIAT HAND EXCEPT FINGER E9270 OVEREXERTIO 06-16-2011 [facility] TE[facility] N FROM HOSPITAL SUDDEN STRENUOUS MOVEMENT 6253 DYSMENORRHE 10-21-2010 [facility] ANI A 4658 ACUTE URIS 10-13-2010 [facility] [place] OF OTHER MULTIPLE SITES 4871 INFLUENZA 10-13-2010 [facility] WITH OTHER HOSPITAL RESPIRATORY MANIFESTATI ONS 23796 OTHER 10-13-2010 [facility] ASCITES RADIOLOGY ASSOCIAT E8496 PLACE OF 04-13-2010 [facility] OCCURRENCE [facility]OSPITAL PUBLIC BUILDING E9175 STRIKE 04-13-2010 [facility] AGN/STR HOSPITAL K ACC OTH OBJ SPORTS W/FALL 2564 POLYCYSTIC 02-05-2010 [facility] GUPT[facility] 5950 ACUTE 02-03-2010 [facility] 6268 OTH D/O 12-10-2009 [facility]OTH ABN CLINIC BLEED FE GNT TRACT 29166 UNSPECIFIED 06-24-2009 [facility] BINOCULAR VISION VISION ANDLEARNING DISORDER 25625 NYSTAGMUS 06-24-2009 [facility] W/DEFIC VISION SMOOTH ANDLEARNING PURSUIT MOVEMENTS 9063 LATE EFFECT 05-26-2009 [facility] TE[facility] OF HOSPITAL CONTUSION 03791 CONTUSION 05-25-2009 [facility] TELLO OF [facility] E8499 UNSPECIFIED 05-25-[address] HOSP[facility] OCCURRENCE E8859 FALL FROM 05-25-2009 [facility] TELLO OTHER HOSPITAL SLIPPING TRIPPING OR STUMBLING 41195 VISUAL 04-01-2009 [facility] 78933 MIGRAINE 04-17-2008 HATTIE TELLO W/O [facility] W/O INTRACT W/O STAT MIGRNOSUS 35125 EFFUSION OF 03-30-2008 [facility] PSC 7812 ABNORMALITY 03-30-2008 HATTIE TELLO OF [facility] 845 SPRAINS AND 03-30-2008 HATT[facility] TELLO STRAINS OF HOSPITAL ANKLE AND FOOT 9160 HIP THI 03-30-2008 [facility] TELLO [facility] ABRASION/FR ICION BURN W/O INF 9170 ABRASION/FR 03-30-2008 [facility] ICTION [facility] FOOT&TOE W/O MENTION INF 75071 CONTUSION 03-30-2008 [facility] TELL[facility] OF [facility] V642 SURG/OTH 03-30-2008 HATTIE TELLO PROC NOT HOSPITAL CARRIED OUT BECAUSE PTS DECN 460 ACUTE 12-22-2007 [facility] IT[facility] INTERNAL MED 4780 HYPERTROPHY 12-18-2007 IN[facility], OF NASAL CHAD B TURBINATES 9953 ALLERGY 12-08-2007 [facility] UNSPECIFIED [facility] NOT INTERNAL ELSEWHERE MED CLASSIFIED 5184 UNSPECIFIED 02-22-2007 [facility] EDEMA OF PEDIA LUNG 5839 NEPHRITIS&N 02-22-2007 [facility] NOT AC/CHRN PED[facility] W/UNS PATHAL LES Medications Na ND Rx Da Fi Fi Am Da Di Ph RX Ph St me C No te ll ll ou ys ag ar # ys at rm s nt no ma ic us Or Da si cy ia de te s n re d AC 61 09 10 50 10 00 [...] MA CY #3 01 6 TR 50 09 10 30 30 00 [...] 34 7- 1- 00 01 UC ve [place] 59 20 20 04 [place] ED 31 [...] 06 07 30 30 00 KE Ac KY 37 -2 -2 .0 00 NT ti [...] 80 6- 8- 00 01 UC ve [place] 01 20 20 03 [place] AM 00 [...] 80 2- 6- 00 01 UC ve [place] 01 20 20 03 [place] AM 00 17 17 07 5 85 CV HB S R PH 20 AR MA MG CY TA LL BL C, ET DB A CV S PH AR MA CY #3 01 6 [place] 00 05 06 60 30 00 KE [...] 80 0- 8- 00 01 UC ve [place] 01 20 20 01 [place] AM 00 [...] 03 04 28 14 00 KE Ac KY 16 -1 -0 .0 00 NT ti [...] 01 KY ZA 11 17 17 27 [place] 0 45 CV IN S E PH [...] 10 7- 4- 00 01 UC ve IL 47 20 20 00 KY 01 17 [...] .0 00 NT ti ON 70 4- 3- 00 01 UC ve AT 10 20 20 00 KY AT 50 17 17 20 E 5 59 CV 10 S 0 PH MG AR MA CA CY PS UL LL E C, DB A CV S PH AR MA CY #3 01 6 [place] 00 02 03 10 5 00 KE [...] 1% 46 11 11 FA TH 0 IL AN SH LY L AM PO DR O UG MA 51 04 04 0 59 1 SO 37 WH Ac LA 67 -1 -1 .0 PE 09 EE ti TH 25 3- 3- 00 RS 00 LE ve IO 27 20 20 R N 70 11 11 FA KR 0. 4 IL IS 5% LY TI E LO DR [...] 0 30 15 WA 70 WH Ac KY 74 -1 -1 .0 L- 55 EE [...] JR IN 26 10 10 FA 7 IL CH 1% LY ES TE LO DR R TI UG R ON PE 00 11 11 1 59 2 SO 35 YO Ac RM 47 -0 -0 .0 PE 68 UN ti ET 25 8- 8- 00 RS 56 G ve HR 24 20 20 JR IN 26 10 10 FA 7 IL CH 1% LY ES TE LO DR [...] TI MA E CY L #4 93 59 03 04 00 20 10 SO 30 JU Ac 76 -3 -0 .0 PE 97 DY ti 22 0- 9- 00 RS 95 ve 18 20 20 NA 00 09 09 FA TA 1 IL LI LY E E DR UG CI 00 03 04 00 7. 7 SO 30 JU Ac KY 06 -3 -0 50 PE 97 DY ti OD 58 0- 9- 0 RS 96 ve EX 53 20 20 NA 30 09 09 FA TA OT 2 IL LI IC LY E E MARIE SP UG EN SI ON [place] 60 03 03 00 12 5 SO 30 HU Ac OM 43 -1 -2 0. PE 86 NT ti ET 20 7- 6- 00 RS 30 ER ve NAILS 60 20 20 0 ZI 41 09 09 FA NA NE 6 IL NC -D LY Y M C SY DR TRAN UG P TA 00 03 03 00 10 5 SO 30 HU Ac IL 00 -1 -2 .0 PE 86 NT ti FL 40 7- 6- 00 RS 44 ER ve U 80 20 20 75 08 09 09 FA NA 5 IL NC MG LY Y C CA DR PS UG UL E 60 01 01 00 12 3 SO 30 HU Ac 25 -1 -3 0. PE 32 NT ti 80 3- 0- 00 RS 84 ER ve 23 20 20 0 91 09 09 FA NA 6 IL NC LY Y C DR UG [place] 50 01 01 00 60 30 SO 30 HU Ac OP 11 -1 -3 .0 PE 32 NT ti RA 10 3- 0- 00 RS 85 ER ve NO 46 20 20 LO 70 09 09 FA NA L 1 IL NC 10 LY Y C MG DR UG TA BL ET AB 59 01 01 00 45 30 SO 30 HU Ac IL 14 -1 -3 .0 PE 32 NT ti IF 80 3- 0- 00 RS 87 ER ve Y 00 20 20 5 71 09 09 FA NA MG 3 IL NC LY Y TA C BL ET UG 17 06 06 00 15 15 SO 28 No Ac 31 -0 -1 .0 PE 58 t ti 45 5- 2- 00 RS 89 Av ve 85 20 20 ai 10 08 08 FA la 2 IL bl LY e DR ROGERS AB 59 06 06 00 15 30 SO 28 No Ac IL 14 -0 -1 .0 PE 58 t ti IF 80 5- 2- 00 RS 88 Av ve Y 00 20 20 ai 5 71 08 08 FA la MG 3 IL bl LY e TA BL ET UG 00 01 03 00 30 30 SO 27 No Ac 09 -2 -2 .0 PE 41 t ti 51 8- 6- 00 RS 15 Av ve 29 20 20 ai 00 08 08 FA la 6 IL bl LY e DR UG NA 00 01 03 00 17 30 SO 27 No Ac SO 08 -2 -2 .0 PE 41 t ti NE 51 8- 6- 00 RS 12 Av ve X 28 20 20 ai 50 80 08 08 FA la 1 IL bl MC LY e G NA DR TUCKER UG L SP RA Y 63 01 03 00 20 10 SO 27 No Ac 30 -2 -2 .0 PE 41 t ti 40 8- 6- 00 RS 14 Av ve 75 20 20 ai 12 08 08 FA la 0 IL bl LY e UG 17 03 00 30 30 SO 27 No Ac 31 -2 -2 .0 PE 34 t ti 45 1- 5- 00 RS 51 Av ve 85 20 20 ai 10 08 08 FA la 2 IL bl LY e DR ROGERS AB 59 01 03 00 45 30 SO 27 No Ac IL 14 -2 -2 .0 PE 34 t ti IF 80 1- 5- 00 RS 53 Av ve Y 00 20 20 ai 5 71 08 08 FA la MG 3 IL bl LY e TA BL DR ET UG [place] 50 01 03 00 60 30 SO 27 No Ac OP 11 -1 -2 .0 PE 33 t ti RA 10 8- 5- 00 RS 47 Av ve NO 46 20 20 ai LO 70 08 08 FA la L 1 IL bl [address] UG TA BL ET Immunization Name Date Rout CVX Reac Dose Comm Prov Is Faci e tion ent ider Refu lity Give sed n IIV3 - 141 HAMI No HAMI 6-20 [place] VACC 14 [place] INE SPLI T VIRU [place] S 0.5 ML DOSA GE IM USE Procedures Procedure DOS Code Location Performer Comment IAADIADOO 73687 VELIA BARNETT [address] [place] [address] EVANGELICAL EVANGELICAL ABDOMINAL 7 [facility] TIME W/IMAGE DOCUMENTA TION IADNA 02563 [facility]AM[facility] 7 [facility] TRACHOMAT KIERA KIERA IS AMPLIFIED PROBE TQ IADNA 80358 [facility] NEISSERIA [address] [facility] DE[facility] GONORRHOE KIERA KIERA AE AMPLIFIED PROBE TQ INJECTION J1050 [facility] DE[facility] OGESTERON KIERA KIERA E ACETATE 1 MG URINE 83928 [facility] DE[facility] VISUAL KIERA KIERA COLOR CMPRSN METHS GENERAL [address] [place] [address] [facility]ALTH [facility] PANEL [facility] HEMOGLOBI 03133 EVANGELICAL EVANGELICAL N 7 [facility] GLYCOSYLA [facility] DOROTHY A1C LIPID 39788 [facility] [address] [facility] CYANOCOBA 48658 EVANGELICAL EVANGELICAL ALFREDO 7 HEALTH HEALTH VITAMIN [facility] B-12 RADEX 96681 [facility] [place] SCALF ABDOMEN 1 7 RADIOLOGY ANTEROPOS TERIOR VIEW CULTURE 18255 [facility] BACTERIAL 7 ELIZABETH ELIZABETH HOLDINGS HOLDINGS QUANTTATI VE COLONY COUNT URINE INJECTION J1050 [facility] MEDROXYPR HLTH DEPT HLTH DEPT OGESTERON KIERA KIERA E ACETATE 1 MG CHIROPRAC 59770 NONA NONA TIC 7 [place] SPINAL 1-2 REGIONS INITIAL 94297 [facility] 7 HEALTH ON MEDICAL CARE/DAY GROUP 70 MINUTES HOSPITAL [id number] [facility] BEHAVIORAL [facility] SERVICES 7 [facility] ON [facility] SERVICE PER HOUR APPL 08151 NONA NONA MODALITY 7 1/> AREAS ELEC STIMJ UNATTENDE D APPL 93566 NONA NONA MODALITY 7 1/> AREAS ULTRASOUN [place] [address] [place] [address] [facility] HEAD/BRAI 7 RADIOLOGY N W/O ASSOC CONTRAST MATERIAL AMB A0427 [facility] SERVICE 7 FAY[facility] FAYET[facility] ALS URBAN URBAN EMERGENCY COGOVT COGOVT TRANSPORT LEVEL 1 GROUND A0425 [facility] MILEAGE 7 FAYETTE FAYETTE PER URBAN URBAN STATUTE COGOVT COGOVT MILE APPL 72618 NONA NONA MODALITY 7 1/> AREAS ULTRASOUN D EA 15 MIN APPL 77081 NONA NONA MODALITY 7 1/> AREAS ELEC STIMJ UNATTENDE D CHIROPRAC 19915 NONA NONA TIC 7 [place]IP[place]AT [place] SPINAL 1-2 REGIONS CHIROPRAC 66319 NONA NONA TIC 7 [place]AT [place] SPINAL 1-2 REGIONS APPL 03166 NONA NONA MODALITY 7 1/> AREAS ULTRASOUN D EA 15 MIN APPL 86195 NONA NONA MODALITY 7 1/> AREAS ELEC STIMJ UNATTENDE D IAADIADOO 74127 VELIA BARNETT [address] [place] [address] MIMI LE STREPTOCO 7 [facility] CCUS INC INC GROUP A RADIOLOGI 26626 MIMI MIMI C EXAM 7 [facility] CHEST 2 INC INC VIEWS FRONTAL&L ATERAL CUL BACT 51188 MIMI LE XCPT 7 [facility] URINE INC INC BLOOD/STO OL AEROBIC ISOL IAADI 32476 MIMI LE INFLUENZA 7 [facility] B VIRUS INC INC IAADI 57798 MIMI LE INFFLUENZ 7 [facility] A VIRUS INC INC IADNA 00380 [facility] [address] [facility] DE[facility] TRACHOMAT KIERA KIERA IS AMPLIFIED PROBE TQ ANTIBODY 78024 [facility] TREPONEMA 7 [facility] DE[facility] KIERA KIERA IADNA 36491 [facility] NEISSERIA [address] [facility] DEPT GONORRHOE KIERA KIERA AE AMPLIFIED PROBE TQ INJECTION J1050 [facility] 7 [facility] MED[facility]XYPR [facility] DEPT OGESTERON KIERA KIERA E ACETATE 1 MG IAADIADOO 48722 VELIA LEZAMA 7 CLINIC STREPTOCO CCUS GROUP A RADIOLOGI 07225 [place] [place] C 6 RADIOLOGY RADIOLOGY EXAMINATI ON KNEE 3 VIEWS RADEX 24807 [facility] RIBS 6 DARRIN PAT UNILATERA EMERGENCY L 2 VIEWS PHYS RADEX 27991 [facility] [place] RADHA ELBOW 6 RADIOLOGY COMPLETE MINIMUM 3 VIEWS INJECTION J1050 [facility] 6 [facility] MED[facility]XYPR [facility] DEPT OGESTERON KIERA KIERA E ACETATE 1 MG CONTRACEP A4267 [facility] TIVE 6 [facility] SU[facility]Y [facility] DEPT CONDOM KIERA KIERA MALE EACH INJECTION J1050 [facility] 6 [facility] DEPT OGESTERON KIERA KIERA E ACETATE 1 MG THERAPEUT 49450 VELIA BARNETT IC 6 [facility] PROPHYLAC TIC/DX INJECTION SUBQ/IM INJECTION J1100 VELIA BARNETT 6 [facility] DEXAMETHO SONE SODIUM PHOSPHATE 1 MG INJ J2930 KASI VILLASEÑOR METHYLPRD 6 [facility] SODIUM SUCCNAT TO 125 MG THERAPEUT 53154 KASI VILLASEÑOR IC [address] [place] [address] INJECTION [facility] HOSPITAL IV PUSH EACH NEW DRUG THER 47751 KASI VILLASEÑOR PROPH/DX [address] [place] [address] HOSPITAL PUSH SINGLE/1S T SBST/DRUG CONTRACEP A4267 [facility] TIVE 6 [facility] SUPPLY [facility] CONDOM KIERA KIERA MALE EACH IADNA 14099 [facility] CHLAMYDIA [address] [facility] DEPT TRACHOMAT KIERA KIERA IS AMPLIFIED PROBE TQ IADNA 18400 [facility] NEISSERIA [address] [place] [address] [facility]PT [facility] DEPT GONORRHOE KIERA KIERA AE AMPLIFIED PROBE TQ INJECTION J1885 [facility] [address] [place] [address] [facility] TR[facility] INE PER 15 MG RADEX 54786 [facility] [place] SCALF FERMÍN NASAL 6 RADIOLOGY BONES COMPLETE MINIMUM 3 VIEWS THERAPEUT 77586 KASI VILLASEÑOR IC [address] [place] [address] [facility] TIC/DX INJECTION SUBQ/IM BLOOD 61473 KASI VILLASEÑOR COUNT [address] [place] [address] AUTO&AUTO DIFRNTL WBC COLLECTIO 92113 KASI VILLASEÑOR N VENOUS [address] [place] [address] VENIPUNCT URE COMPREHEN 12027 KASI VLILASEÑOR SIVE [address] [place] [address] [place] [address] [facility] FOLIC 6 ELIZABETH ELIZABETH ACID HOLDINGS HOLDINGS SERUM BASIC 63772 [facility] METABOLIC 6 ELIZABETH ELIZABETH PANEL HOLDINGS HOLDINGS CALCIUM TOTAL IAADIADOO 42211 VELIA VELIA [address] [place] [address] STREPTOCO CCUS GROUP A CYANOCOBA 12341 [facility] ALFREDO 6 ELIZABETH ELIZABETH VITAMIN HOLDINGS HOLDINGS B-12 ANES 27282 MATILDE JEAN UPPER GI 6 ANESTHESI ENDOSCOPY A GROUP PROXIMAL PS TO DUODENUM INJECTION J1050 [facility] [address] [place] [address] MEDROXYPR HLTH DEPT HLTH DEPT OGESTERON IKERA KIERA E ACETATE 1 MG GENERAL 93757 [facility] HEALTH 6 ELIZABETH ELIZABETH [place] [address] LAB F[facility] FOLIC 6 ELIZABETH ELIZABETH [place] [address] [facility] FREE 6 ELIZABETH ELIZABETH [place] [address] LAB F[facility] AMYLASE 6 ELIZABETH ELIZABETH HOLDINGS HOLDINGS URINE 56324 VELIA VELIA 6 CLINIC CLINIC TEST VISUAL COLOR CMPRSN METHS CYANOCOBA 01217 [facility] ALFREDO 6 ELIZABETH ELIZABETH VITAMIN HOLDINGS HOLDINGS B-12 [place] [address] LAB F[facility] LIPASE 6 ELIZABETH ELIZABETH HOLDINGS HOLDINGS HPYLORI 94797 [facility] BREATH 6 ELIZABETH ELIZABETH ANAL HOLDINGS HOLDINGS UREASE ACT NON-RADAC T ISTOPE IAADIADOO 85867 HATTIE RESENDIZ [address] [place] [address] STREPTOCO URGENT CCUS TREAT GROUP A CONTRACEP A4267 [facility] T[facility] 5 [facility] SU[facility]PLY [facility] DEPT CONDOM KIERA KIERA MALE EACH INJECTION J1050 [facility] [address] [place] [address] [facility] DEPT OGESTERON KIERA KIERA E ACETATE 1 MG LARYNGOSC 65110 EAR, NOSE SHASHY OPY 5 AND MIRANDA FLEXIBLE THROAT DIAGNOSTI SPECIAL C IAADIADOO [address] [place] [address] [facility] [place] CORBIN JAM ABDOMEN & 5 RADIOLOGY PELVIS W/O CONTRAST MATERIAL CONTRACEP A4267 [facility] TIVE 5 [facility] SUPPLY HLTH DEPT HLTH DEPT CONDOM KIERA KIERA MALE EACH INJECTION J1050 [facility] 5 [facility] MEDROXYPR HLTH DEPT HLTH DEPT OGESTERON KIREA KIERA E ACETATE 1 MG IADNA 37536 [facility] CHLAMYDIA 5 [facility] HLTH DEPT HLTH DEPT TRACHOMAT KIERA KIERA IS AMPLIFIED PROBE TQ URINE 94978 [facility] 5 [facility] TEST TH DEPT TH DEPT VISUAL KIERA KIERA COLOR CMPRSN METHS IADNA 59898 [facility] [place] [address] [facility] DEPT TH DEPT GONORRHOE KIERA KIERA AE AMPLIFIED PROBE TQ CRTCHS E0114 [facility]ED ADVANCED UNDARM 5 TECHNOLOG TECHNOLOG OTH THAN IES INC IES INC WOOD PAIR PAD TIP&HNDGR IP RADEX 57560 MIMI LE ANKLE 5 [facility] COMPLETE INC INC MINIMUM 3 VIEWS THER 59989 [facility] PROPH/DX 5 [facility] PUSH SINGLE/1S T SBST/DRUG THERAPEUT 60232 [facility] IC 5 [facility] [place] [address] [facility] [place] CORBIN JAM ABDOMEN & 5 RADIOLOGY PELVIS W/O CONTRAST MATERIAL URNLS DIP 85728 [facility] 5 [facility] HOSPITAL LET REAGENT AUTO MICROSCOP Y BLOOD 49813 [facility] COUNT 5 [facility] AUTO&AUTO DIFRNTL WBC CULTURE 97947 [facility] BACTERIAL [address] [place] [address] QUANTTATI VE COLONY COUNT URINE COLLECTIO 54345 [facility] [place] N VENOUS [address] [place] [address] [place] [address] [place] AMYLASE [address] [place] [address] INJECTION J1885 [facility] [address] [place] [address] KETOROLAC [facility] HOSPITAL TROMETHAM INE PER 15 MG INJECTION J2405 [place] [address] [place] [address] ONDANSETR [facility] HOSPITAL ON HCL PER 1 MG COMPREHEN 96287 [place] SIVE [address] [place] [address] [facility] PANEL URINE 17400 [facility] 5 [facility] VISUAL COLOR CMPRSN METHS RADIOLOGI 42226 [facility] [place] ROJAS C 5 RADIOLOGY JOSE EXAMINATI ON CHEST SINGLE VIEW FRONTAL AMB A0427 HATTIE GARCIA 5 [facility] ALS AMBULANCE AMBULANCE EMERGENCY SE SE TRANSPORT LEVEL 1 RADIOLOGI 39553 [facility] [place] ROJAS C 5 RADIOLOGY JOSE EXAMINATI ON PELVIS 1/[address] LUMBAR 11724 [facility] [place] CORBIN JAM SPINE 5 RADIOLOGY W/O CONTRAST MATERIAL CT ANGIO 84426 [facility] [place] RO[place]AS ABD&PLVIS 5 RADIOLOGY JOSE [facility] MTRL W/WO [facility] IMG GROUND A0425 HATTIE KUHN MILEAGE [address] [place] [address] PER AMBULANCE [place] [address] [facility] [place] HAJIBRAHI ANGIOGRAP 5 RADIOLOGY M DHAVAL HY CHEST W/CONTRAS T/[place] [address] [facility] [place] CORBIN JAM CERVICAL 5 RADIOLOGY SPINE [place] [address] [facility] CERVICAL 5 MEDICAL NANI SPINE W/[place] [address] [place] [facility] HEAD/BRAI 5 MEDICAL NANI N W/[place] [address] [facility] [place] RUSSEL TRANSVAGI 5 [place] [address] [place] LIPASE [address] [place] [address] [place] [address] [facility] & [address] [place] [address] W/O CONTRAST MATERIAL URNLS DIP 26626 [place] [address] [place] [address] [facility] HOSPITAL LET REAGENT AUTO MICROSCOP Y BLOOD 21079 [place] COUNT [address] [place] [address] AUTO&AUTO DIFRNTL WBC COMPREHEN 09449 [place] SIVE [address] [place] [address] PANEL URINE 17768 [place] [address] [place] [address] [place] [address] [place] AMYLASE [address] [place] [address] COLLECTIO 75838 [place] N VENOUS [address] [place] [address] VENIPUNCT URE NITRIC 18892 INGE INGE OXIDE 5 CHAD CHAD GAS DETERMINA TION BRNCDILAT 98382 INGE INGE RSPSE 5 CHAD BONILLA SPMTRY PRE&POST- BRNCDILAT ADMN PRESSURIZ 62526 INGE INGE ED/NONPRE 5 CHAD BON[place] SSURIZED INHALATIO N TREATMENT PREPJ& 85876 INGE INGE ALLERGEN 4 CHAD BONILLA IMMUNOTHE RAPY 1/DIRECTOR OF ANCILLARY SERVICES ANTIGEN INITIAL 03252 RACHEL RAMOS OBSERVATI 4 SOY SOY ON CARE/DAY 50 MINUTES RADIOLOGI 07205 MIMI LE C EXAM 4 [facility] CHEST 2 INC INC VIEWS FRONTAL&L ATERAL BLOOD 60151 [facility] COUNT 4 ELIZABETH ELIZABETH COMPLETE HOLDINGS HOLDINGS AUTO&AUTO DIFRNTL WBC ALBUMIN 32496 [facility] SERUM 4 ELIZABETH ELIZABETH PLASMA/WH HOLDINGS HOLDINGS OLE BLOOD GLUCOSE 14905 [facility] QUANTITAT 4 ELIZABETH ELIZABETH MORENITA BLOOD HOLDINGS HOLDINGS XCPT REAGENT STRIP PROTEIN 85926 LAB [facility] XCPT 4 ELIZABETH ELIZABETH REFRACTOM HOLDINGS HOLDINGS ETRY SERUM PLASMA/WH L BLD SODIUM 68872 LAB [facility] SERUM 4 ELIZABETH ELIZABETH PLASMA OR HOLDINGS HOLDINGS WHOLE BLOOD CHLORIDE 77052 [facility] BLD 4 ELIZABETH ELIZABETH HOLDINGS HOLDINGS CREATININ 92420 [facility] E BLOOD 4 ELIZABETH [place] [address] LAB [facility] LAB [facility] PHOSPHATA 4 ELIZABETH ELIZABETH SE HOLDINGS HOLDINGS ALKALINE POTASSIUM 57377 LAB [facility] SERUM 4 [facility] PLASMA/WH HOLDINGS HOLDINGS OLE BLOOD COLLECTIO 25950 VELIA LEZAMA LASHON N VENOUS 4 CLINIC BLOOD VENIPUNCT URE BILIRUBIN 79791 LAB [facility] TOTAL 4 ELIZABETH ELIZABETH HOLDINGS HOLDINGS CALCIUM 54111 LAB FANAT LAB FANT[facility] TOTAL 4 ELIZABETH ELIZABETH HOLDINGS HOLDINGS TRANSFERA 52468 LAB F[facility] SE 4 ELIZABETH ELIZABETH ASPARTATE [place] [address] LAB F[facility] UREA 4 ELIZABETH ELIZABETH NITROGEN HOLDINGS HOLDINGS QUANTITAT M[place]ENITA IAADIADOO 63232 MEANS BUTROS 4 ADULT MARISEL STREPT[facility]O PRIMARY CCUS CARE CLI GROUP A INJECTION J1040 [facility]TEGR[facility] RICHAR[facility], 4 JR. JAM METHYLPRE ORTHOPAED DNISOLONE ICS SPORT ACETATE 80 MG ARTHROCEN 72718 INTEGRITY RICHARDS, TESIS 4 JR. JAM ASPIR&/IN ORTHOPAED J MAJOR ICS SPORT JT/BURSA W/O [place] ANY [address] [facility] [place] ROJAS JT LOWER 4 RADIOLOGY JOSE EXTREM W/O CONTRAST MATRL SLINGS A4565 BREG INC. BREG INC. 4 RADEX 27481 [facility] SHOULDER 4 MEDICAL NANI COMPLETE IMAGING MINIMUM 2 ASS VIEWS INJECTION J1030 VELIA SCHMITZ- 4 [facility] METHYLPRE DNISOLONE ACETATE 40 MG INJECTION J0696 VELIA SCHMITZ- 4 [facility] CEFTRIAXO NE SODIUM PER 250 MG ALBUTEROL J7609 VELIA SCHMITZ- INHAL CP 4 [facility] PROD THRU DME UNIT DOSE 1 MG IPRATROPI J7644 VELIA SCHMITZ- UM 4 [facility] BROMIDE INHAL NON-CP U DOSE PER MG PRESSURIZ 69457 VELIA SCHMITZ- ED/NONPRE 4 [facility] SSURIZED INHALATIO N TREATMENT THERAPEUT 21182 VELIA SCHMITZ- IC 4 [facility] PROPHYLAC TIC/DX INJECTION SUBQ/IM DEMO&/KERWIN 17200 VELIA SCHMITZ- L OF PT 4 [facility] UTILIZ AERSL GEN/NEB/I NHLR/IP THERAPEUT 42393 SCHULTE CHR SCHULTE CHR IC PX 1/> 4 AREAS EACH 15 MIN EXERCISES MANUAL 83024 SCHULTE CHR SCHULTE CHR THERAPY 4 TQS 1/> REGIONS EACH 15 MINUTES MANUAL 34555 SCHULTE CHR SCHULTE CHR THERAPY 4 TQS 1/> REGIONS EACH 15 MINUTES THERAPEUT 47986 SCHULTE CHR SCHULTE CHR IC PX 1/> 4 AREAS EACH 15 MIN EXERCISES THERAPEUT 85336 SCHULTE CHR SCHULTE CHR IC PX 1/> 4 AREAS EACH 15 MIN EXERCISES MANUAL 58812 SCHULTE CHR SCHULTE CHR THERAPY 4 TQS 1/> REGIONS EACH 15 MINUTES MANUAL 74069 SCHULTE CHR SCHULTE CHR THERAPY 4 TQS 1/> REGIONS EACH 15 MINUTES THERAPEUT 71267 SCHULTE CHR SCHULTE CHR IC PX 1/> 4 AREAS EACH 15 MIN EXERCISES THERAPEUT 74885 SCHULTE CHR SCHULTE CHR IC PX 1/> 4 AREAS EACH 15 MIN EXERCISES MANUAL 49396 SCHULTE CHR SCHULTE CHR THERAPY 4 TQS 1/> REGIONS EACH 15 MINUTES MANUAL 92723 SCHULTE CHR SCHULTE CHR THERAPY 4 TQS 1/> REGIONS EACH 15 MINUTES THERAPEUT 49221 SCHULTE CHR SCHULTE CHR IC PX 1/> 4 AREAS EACH 15 MIN EXERCISES PHYSICAL 23042 SCHULTE CHR SCHULTE CHR THERAPY 4 EVALUATIO N RADEX 17142 CHATTHA CHATTHA ANKLE 4 SHANNON SHANNON COMPLETE MINIMUM 3 VIEWS ANKLE L1902 [facility] ORTH 4 [employer]ACING [employer]. INC. GAUNT/SIM PREFAB OFF-THE-S HELF RADIOLOGI 75785 CHATTHA KALTHA C 4 SHANNON SHANNON EXAMINATI ON KNEE 1/2 VIEWS COMPRE 79895 [facility] SET AUDIOMETR 4 PHYSICIAN Y PRACTICE THRESHOLD L EVAL SP RECOGNIJ TYMPANOME 06395 [facility] SET TRY 4 PHYSICIAN PRACTICE L CUL BACT 05726 [employer], XCPT 4 PRIMARY CARE NURSE PRACTITIONER PRIMARY CARE NURSE PRACTITIONER URINE HATTIE KUHN BLOOD/STO [place] [address] [employer], [employer], SHIGA-LIK 4 PRIMARY CARE NURSE PRACTITIONER PRIMARY CARE NURSE PRACTITIONER E TOXIN HATTIE HATTIE CO HOS CO HOS OVA&MARVA 36200 [employer], [employer], ITES 4 PRIMARY CARE NURSE PRACTITIONER PRIMARY CARE NURSE PRACTITIONER DIRECT HATTIE KUHN SMEARS CO HOS CO HOS CONCENTRA TION & ID BLOOD 16385 [facility], [facility], COUNT 4 PRIMARY CARE NURSE PRACTITIONER PRIMARY CARE NURSE PRACTITIONER COMPLETE HATTIE HATTIE AUTO&AUTO CO HOS CO HOS DIFRNTL WBC BLOOD [address] [facility], [facility], OCCULT 4 PRIMARY CARE NURSE PRACTITIONER PRIMARY CARE NURSE PRACTITIONER PEROXIDAS HATTIE HATTIE E ACTV CO HOS CO HOS QUAL FECES 1 DETER LEUKOCYTE [address] [facility], [facility], ASSMT 4 PRIMARY CARE NURSE PRACTITIONER PRIMARY CARE NURSE PRACTITIONER FECAL HATTIE HATTIE QUAL/SEMI CO HOS CO HOS QUANTITAT MORENITA CUL BACT 73895 [facility], [facility], STOOL 4 PRIMARY CARE NURSE PRACTITIONER PRIMARY CARE NURSE PRACTITIONER AEROBIC HATTIE HATTIE ISOL CO HOS CO HOS SALMONELL A&SHIGELL CUL BACT [address] [facility], [facility], STOOL 4 PRIMARY CARE NURSE PRACTITIONER PRIMARY CARE NURSE PRACTITIONER AEROBIC HATTIE HATTIE ADDL CO HOS CO HOS PATHOGENS &ID EA SMR PRIM 95123 [facility], [facility], SRC CPLX 4 PRIMARY CARE NURSE PRACTITIONER PRIMARY CARE NURSE PRACTITIONER SPEC HATTIE HATTIE STAIN CO HOS CO HOS OVA&MARVA ITS COMPREHEN 09411 [facility], [facility], SIVE 4 PRIMARY CARE NURSE PRACTITIONER PRIMARY CARE NURSE PRACTITIONER METABOLIC HATTIE HATTIE PANEL CO HOS CO HOS IAADIADOO [address] [facility] 4 [place] [facility] [employer] A SPMTRY 61820 INGE INGE W/VC 4 CHAD CHAD EXPIRATOR Y RADHA W/WO MXML VOL VNTJ IAADIADOO 61846 ASTRID RESENDIZ 4 NAN NAN [facility] [employer] A PREPJ& 11287 INGE INGE ALLERGEN 4 CHAD CHAD IMMUNOTHE RAPY 1/DIRECTOR OF ANCILLARY SERVICES ANTIGEN BASIC 95156 [facility], [employer], METABOLIC 4 PRIMARY CARE NURSE PRACTITIONER PRIMARY CARE NURSE PRACTITIONER PANEL HATTIE HATTIE CALCIUM CO HOS CO HOS TOTAL BLOOD 04800 [facility], [employer], COUNT 4 PRIMARY CARE NURSE PRACTITIONER PRIMARY CARE NURSE PRACTITIONER COMPLETE HATTIE HATTIE AUTO&AUTO CO HOS CO HOS DIFRNTL WBC RADIOLOGI 05850 [facility], [facility], C EXAM 4 PRIMARY CARE NURSE PRACTITIONER PRIMARY CARE NURSE PRACTITIONER CHEST 2 HATTIE HATTIE VIEWS CO HOS CO HOS FRONTAL&L ATERAL THER 99451 [facility], [facility], PROPH/DX 4 PRIMARY CARE NURSE PRACTITIONER PRIMARY CARE NURSE PRACTITIONER NJX IV HATTIE HATTIE PUSH CO HOS CO HOS SINGLE/1S T SBST/DRUG PRESSURIZ 62694 [facility] [employer], ED/NONPRE 4 PRIMARY CARE NURSE PRACTITIONER PRIMARY CARE NURSE PRACTITIONER SSURIZED HATTIE KUHN [place]HAL[place] [address] [facility] [employer], INFUSION 4 PRIMARY CARE NURSE PRACTITIONER PRIMARY CARE NURSE PRACTITIONER THERAPY/P HATTIE KUHN ROPHYLAXI CO HOS CO HOS S /DX 1ST TO [address] [facility] VACCINE 4 [place] SPLIT VIRUS 0.5 ML DOSAGE IM USE PROF SVCS 58839 INGE INGE ALLG 4 CHAD CHAD IMMNTX X W/PRV ALLGIC XTRCS NJXS PREPJ& 92518 INGE INGE ALLERGEN 4 CHAD CHAD IMMUNOTHE RAPY 1/DIRECTOR OF ANCILLARY SERVICES ANTIGEN PERCUTANE 50166 INGE INGE OUS TESTS 3 CHAD CHAD W/ALLERGE KIERA EXTRACTS INTRACUTA 83901 INGE INGE NEOUS 3 CHAD CHAD TESTS W/ALLERGE KIERA EXTRACTS SPMTRY 55723 INGE INGE W/VC 3 CHAD CHAD EXPIRATOR Y RADHA W/WO MXML VOL VNTJ RADEX 16230 NETTACHJessy NOGUEIRAENSCHN ANKLE 3 EIDER L[facility]ON [facility] COMPLETE MINIMUM 3 VIEWS RADEX 35241 HAGENSCHJessy NOGUEIRAENSCHN FOOT 3 E[place] [place] E[facility] COMPLETE MINIMUM [address] D[address] [facility] 3 [place] STICK/TAB LET RGNT AUTO W/O MICROSCOP Y DETERMINA 99469 DREW RUSSELL TION 3 GRE GRE REFRACTIV E STATE SPMTRY 73131 INGE INGE W/VC 3 CHAD CHAD EXPIRATOR Y RADHA W/WO MXML VOL VNTJ OPHTH 49582 DREW RUSSELL MEDICAL 3 GRE GRE XM&EVAL COMPRE NEW PT 1/> VST RADEX 30888 [facility], FOOT 3 PRIMARY CARE NURSE PRACTITIONER PRIMARY CARE NURSE PRACTITIONER COMPLETE HATTIE KUHN MINIMUM 3 CO HOS CO HOS VIEWS BRNCDILAT 30249 INGE INGE RSPSE 3 CHAD BONILLA SPMTRY PRE&POST- BRNCDILAT ADMN SPACR A4627 MT MED MT MED BAG/RESRV 3 EQUIPMENT EQUIPMENT OR W/WO INC INC MASK W/METRD DOSE INHAL URINE 64308 [facility] 3 [facility] VISUAL COLOR CMPRSN METHS LEVEL III 63433 TANOUS, TANOUS, SURG 3 JR EDW JR EDW PATHOLOGY GROSS&JANA ROSCOPIC EXAM ANES 99869 SIENNA ANT SIENNA ANT INTRAPERI 3 TONEAL UPPER ABDOMEN W/LAPS NOS PRESSURIZ 28227 [facility] ED/NONPRE 3 [facility] INHALATIO N TREATMENT LAPAROSCO 43950 MAKAYLA JR MAKAYLA JR PY SURG 3 KASSANDRA KASSANDRA CHOLECYST ECTOMY BLOOD 72689 [facility] 3 [facility] AUTO&AUTO DIFRNTL WBC COLLECTIO 84724 [facility] [place] N VENOUS 3 [facility] VENIPUNCT URE COMPREHEN 02571 [facility] SIVE 3 [facility] PANEL HEPATOBIL 49744 RUSSEL RUSSEL SYST 3 RHO RHO IMAG INC GB W/[place] [address] [facility] [employer] [employer], AMYLASE 3 PRIMARY CARE NURSE PRACTITIONER PRIMARY CARE NURSE PRACTITIONER HATTIE HATTIE CO HOS CO HOS COMPREHEN 25272 [facility] [employer] [employer], SIVE 3 PRIMARY CARE NURSE PRACTITIONER PRIMARY CARE NURSE PRACTITIONER METABOLIC HATTIE HATTIE PANEL CO HOS CO HOS BLOOD 21570 [facility] [employer] [employer], COUNT 3 PRIMARY CARE NURSE PRACTITIONER PRIMARY CARE NURSE PRACTITIONER COMPLETE HATTIE HATTIE AUTO&[place] [address] CHAW[facility] CHAWLA ABDOMINAL 3 FERMÍN FERMÍN REAL TIME W/IMAGE LIMITED ADMN SET A7003 YOUR YOUR SM VOL 3 PHARMACY [facility] PNEUMAT NEBULIZR DISPBL NEBULIZER E0570 DANGELO PIERSON WITH 3 HOME HOME COMPRESSO MEDICAL MEDICAL R EQUIPME EQUIPME RADIOLOGI 75850 NELLIE BALLARD C EXAM 3 EIGARCES CHEST 2 VIEWS FRONTAL&L ATERAL RADIOLOGI 06956 NELLIE BALLARD C EXAM 3 EIDER LASHON OATES CHEST 2 VIEWS FRONTAL&L ATERAL INJECTION J1100 [facility] 3 Y Y DEXAMETHO [facility]ALTH SYSTEM SONE SODIUM PHOSPHATE 1 MG RINGERS J7120 [facility] LACTATE 3 Y Y INFUSION [facility] UP TO 1000 CC EXC TUMOR 02473 ADLER ADLER SOFT 3 TONYA TONYA TISS NECK/THOR AX SUBFASCIA L <5CM ANES 84500 HOWARD JANA HOWARD JANA INTEG 3 MUSC & NRV HEAD NECK&POST ERIOR TRUNK BX/EXC 56550 [facility] LYMPH 3 Y Y NODE [facility] DEEP CERVICAL NODE INJECTION J2250 [facility] 3 Y Y [facility] HCL PER 1 MG INJECTION J2405 [facility] 3 [facility] ON [place]CL PER 1 [place] [address] MONTILLA MOL MONTILLA MOL SURG 3 PATHOLOGY GROSS&JANA ROSCOPIC EXAM URINE 10444 [facility] 3 Y Y TEST HEALTH SYSTEM VISUAL COLOR CMPRSN METHS INJECTION J3010 [facility] FENTANYL 3 Y Y [facility] 0.1 MG INFUSION J7030 [facility] NORMAL 3 Y Y SALINE [facility] SOLUTION 1000 CC BLOOD 93199 [facility], [facility], COUNT 3 PRIMARY CARE NURSE PRACTITIONER PRIMARY CARE NURSE PRACTITIONER COMPLETE HATTIE KUHN AUTO&AUTO CO HOS CO HOS DIFRNTL WBC GONADOTRO 28243 [facility], PIN 3 PRIMARY CARE NURSE PRACTITIONER PRIMARY CARE NURSE PRACTITIONER CHORIONIC HATTIE KUHN CO HOS CO HOS QUALITATI VE THYROID 26974 [facility], [facility], HORM 3 PRIMARY CARE NURSE PRACTITIONER PRIMARY CARE NURSE PRACTITIONER UPTK/THYR HATTIE KUHN OID CO HOS CO HOS HORMONE BINDING RATIO HEMOGLOBI 58311 [facility], [facility], N 3 PRIMARY CARE NURSE PRACTITIONER PRIMARY CARE NURSE PRACTITIONER GLYCOSYLA HATTIE KUHN DOROTHY A1C CO HOS CO HOS BLOOD 00748 [facility], [facility], COUNT 3 PRIMARY CARE NURSE PRACTITIONER PRIMARY CARE NURSE PRACTITIONER COMPLETE HATTIE HATTIE AUTO&AUTO [place] [address] [facility] [employer], THYROXINE 3 PRIMARY CARE NURSE PRACTITIONER PRIMARY CARE NURSE PRACTITIONER TOTAL HATTIE HATTIE CO HOS CO HOS US SOFT 73923 HAGENSCHN HAGENSCHN TISSUE 3 EIGARCES HEAD & [place] [address] [facility], EXTREMITY 3 PRIMARY CARE NURSE PRACTITIONER PRIMARY CARE NURSE PRACTITIONER NON-VASC HTATIE HATTIE CO HOS [place] [address] [employer], THYROID 3 PRIMARY CARE NURSE PRACTITIONER PRIMARY CARE NURSE PRACTITIONER STIMULATI HATTIE HATTIE NG [place] [address] [facility], INSULIN 3 PRIMARY CARE NURSE PRACTITIONER PRIMARY CARE NURSE PRACTITIONER TOTAL [place] [address] [facility] [employer], FREE 3 PRIMARY CARE NURSE PRACTITIONER PRIMARY CARE NURSE PRACTITIONER THYROXINE HATTIE HATTIE CO HOS CO HOS COMPREHEN 59051 [facility], [facility], SIVE 3 PRIMARY CARE NURSE PRACTITIONER PRIMARY CARE NURSE PRACTITIONER METABOLIC HATTIE [place] [address] [facility] CERVICAL 2 ANIBAL SPINE W/O RADIOLOGY CONTRAST ASSOCIAT MATERIAL GROUND A0425 BANGLADESHI BANGLADESHI MILEAGE 2 AMBULETT AMBULETT PER & & STATUTE AMBULANC AMBULANC MILE AMBULANCE A0429 BANGLADESHI BANGLADESHI SERVICE 2 AMBULETT AMBULETT BLS & & EMERGENCY AMBULANC AMBULANC TRANSPORT COLONOSCO 27735 [facility] PY 2 Y Y W/[facility] SINGLE/MU LTIPLE EGD 53288 [facility] TRANSORAL 2 Y Y [facility] SINGLE/MU LTIPLE CUL BACT 99374 [facility] PIPPA 2 [facility] ISOL XCPT UR BLOOD/STO OL INJECTION J2250 [facility] 2 Y Y [facility] HCL PER 1 MG RINGERS J7120 [facility] LACTATE 2 Y Y INFUSION HEALTH SYSTEM UP TO [address] [place] [address] [facility] SURG 2 Y Y PATHOLOGY HEALTH SYSTEM GROSS&JANA ROSCOPIC EXAM INJECTION J3010 [facility] FENTANYL 2 Y Y [facility] 0.1 MG ANES 51711 [place] [facility] 2 MEDICAL [facility] INTESTINE SERVICES [place] [address] [facility], [facility], MULT STEP 2 PRIMARY CARE NURSE PRACTITIONER PRIMARY CARE NURSE PRACTITIONER METHOD HATTIE KUHN NOS EACH CO HOS CO HOS ORGANISM FAT/LIPID 60965 [facility], [facility], S FECES 2 PRIMARY CARE NURSE PRACTITIONER PRIMARY CARE NURSE PRACTITIONER QUALITATI HATTIE [place] [address] [facility], [facility], CLOSTRIDI 2 PRIMARY CARE NURSE PRACTITIONER PRIMARY CARE NURSE PRACTITIONER UM HATTIE HATTIE DIFFICILE CO HOS CO HOS TOXIN RADEX 92358 [facility] FOOT 2 EIDER LASHON COMPLETE RADIOLOGY MINIMUM 3 ASSOCIAT VIEWS C-REACTIV 46086 [facility] E PROTEIN 2 Y Y HEALTH SYSTEM IMMUNOASS 34759 [facility] AY 2 Y Y [facility] QUAL/SEMI QUAL MULTIPLE STEP BLOOD 89279 [facility] COUNT 2 Y Y [place] [address] [facility] GAMMAGLOB 2 Y Y [facility] [place] [address] [facility] THYROID 2 Y [facility] HORMONE TSH COMPREHEN 07404 [facility] SIVE 2 Y Y [facility] PANEL SIMPLE 08672 HATTIE BROOKS REPAIR 2 CO DIOGENES F/E/E/N/L HOSPITAL /M 2.5CM/< SIMPLE 88056 [facility], [facility], REPAIR 2 PRIMARY CARE NURSE PRACTITIONER PRIMARY CARE NURSE PRACTITIONER F/E/E/N/L HATTIE HATTIE /M CO HOS CO HOS 2.5CM/< GONADOTRO 54563 [facility], [facility], PIN 2 PRIMARY CARE NURSE PRACTITIONER PRIMARY CARE NURSE PRACTITIONER CHORIONIC HATTIE HATTIE CO HOS CO HOS QUALITATI VE RADEX 56132 [facility] SPINE 2 EIDER LASHON THORACIC RADIOLOGY 2 VIEWS ASSOCIAT INJECTION J2001 [facility], [facility], 2 PRIMARY CARE NURSE PRACTITIONER PRIMARY CARE NURSE PRACTITIONER LIDOCAINE HATTIE HATTIE HCL CO HOS CO HOS INTRAV[place] [address] [place] [address] [facility] CERVICAL 2 ANIBAL SPINE W/O RADIOLOGY CONTRAST ASSOCIAT MATERIAL RADEX 35432 [facility] SPINE 2 EIDER LASHON LUMBOSACR RADIOLOGY AL 2/3 ASSOCIAT VIEWS THERAPEUT 36325 [facility], [facility], IC 2 PRIMARY CARE NURSE PRACTITIONER PRIMARY CARE NURSE PRACTITIONER PROPHYLAC HATTIE HATTIE TIC/DX CO HOS CO HOS INJECTION SUBQ/IM INJECTION J[address] [facility] 2 PRIMARY CARE NURSE PRACTITIONER PRIMARY CARE NURSE PRACTITIONER KETOROLAC HATTIE HATTIE CO HOS CO HOS TROMETHAM INE [place] 15 [place] [address] MD DIEGO CORTEZ MD TRANSVAGI 2 STEPHEN STEPHEN NAL HEPATOBIL 30192 [facility] SYST 2 [facility] GB W/PHARMA INTERVENJ BASIC 11675 [facility] METABOLIC 2 [facility] CALCIUM TOTAL COLLECTIO 17382 [facility] N VENOUS 2 [facility] VENIPUNCT URE URINE 55499 [facility] 2 [facility] VISUAL COLOR CMPRSN METHS URNLS DIP [address] STICK/TAB [facility] LET REAGENT AUTO MICROSCOP Y THER 60607 [facility] PROPH/DX 2 [facility] NJX IV [facility] PUSH SINGLE/1S T SBST/[place] [address] [facility] [place] RADHA MAT ABDOMEN & 2 RADIOLOGY PELVIS W/O CONTRAST MATERIAL BLOOD 82611 [facility] 2 [facility] AUTO&AUTO DIFRNTL WBC CYTP C/V 45085 PATHOLOGY PICKLESIM AUTO THIN 2 & ER JR RADAMES LYR CYTOLOGY PREPJ SCR LAB MNL RESCR PHYS URINLS 64183 JEFE MAYBERRY DARRION DIP 2 STICK/TAB LET REAGNT NON-AUTO MICRSCPY URINLS 70949 JEFE MAYBERRY DARRION DIP 2 STICK/TAB LET REAGNT NON-AUTO MICRSCPY IAADIADOO 23531 JFEE MAYBERRY DARRION 1 STREPTOCO CCUS GROUP A THYROID 11-23-201 14280 [facility] HORM 1 AMERIC AMERIC UPTK/THYR HOLDINGS HOLDING [place] [address] [facility] THYROXINE 1 AMERIC AMERIC TOTAL HOLDINGS HOLDING GENERAL 42920 [facility] HEALTH 1 AMERIC AMERIC PANEL HOLDINGS HOLDING COLLECTIO 20909 JEFE MAYBERRY DARRION N VENOUS 1 BLOOD VENIPUNCT URE RADEX 96833 HATTIE KUHN ELBOW 1 CO CO [facility]TE [facility] MINIMUM 3 [place] [address] MD DIEGO CORTEZ MD TRANSVAGI 1 STEPHEN STEPHEN NAL RINGERS J7120 [facility] LACTATE 1 Y Y INFUSION HEALTH SYSTEM UP TO [address] [place] [address] [facility] LIPASE 1 Y Y HEALTH SYSTEM US PELVIC 15300 [facility] [address] [facility] NONOBSTET RADIOLOGY FERMÍN ASSOCIAT REAL-TIME IMAGE COMPLETE INJECTION J2270 [facility] MORPHINE 1 Y Y SULFATE [facility] UP TO 10 MG THER 39408 [facility] PROPH/DX 1 Y Y NJX IV HEALTH SYSTEM PUSH SINGLE/1S T SBST/DRUG THERAPEUT 41782 [facility] IC 1 Y Y INJECTION HEALTH SYSTEM IV PUSH EACH NEW DRUG [facility] 25547 [facility] DISCHARGE 1 OSI OSI DAY MANAGEMEN T > 30 MIN BLOOD 11558 [facility] COUNT 1 Y Y COMPLETE HEALTH SYSTEM AUTO&AUTO DIFRNTL WBC INFUSION J7030 [facility] NORMAL 1 Y Y SALINE [facility] SOLUTION 1000 CC INJECTION J2405 [facility] 1 [facility] PER 1 MG COMPREHEN 97777 [facility] SIVE 1 Y Y METABOLIC HEALTH SYSTEM PANEL URNLS DIP 50487 [facility] 1 Y Y STICK/TAB HEALTH SYSTEM LET RG[place] [address] [facility] INFUSION 1 Y Y HYDRATION HEALTH SYSTEM EACH ADDITIONA L HOUR DUP-SCAN 99331 [place] ART[facility] RADHA 1 MEDICAL [place] ABDL/PEL/ SERV SCROT&/RP FOUNDATIO R ORGN COM URINE 61646 HATTIE KUHN 1 CO CO TEST [facility] HOSPITAL VISUAL COLOR CMPRSN METHS SBSQ 22612 [facility] 1 DREAD DREAD CARE/DAY 25 MINUTES INITIAL 46214 [facility] 1 OSI OSI CARE/DAY 70 MINUTES URNLS DIP 24360 HATTIE KUHN 1 CO CO STICK/TAB HOSPITAL HOSPITAL [place] [address] HATTIE KUHN INFUSION 1 CO CO THERAPY/P HOSPITAL HOSPITAL ROPHYLAXI S /DX 1ST TO 1 HR BLOOD 86808 HATTIE KUHN COUNT 1 CO CO COMPLETE [facility] AUTO&AUTO DIFRNTL WBC BASIC 57300 HATTIE KUHN METABOLIC 1 CO [facility] G[facility]8 HATTIE KUHN OBSERVATI 1 CO [facility] ON [facility]OSPITAL HOSPITAL SERVICE PER HOUR INJECTION J2550 HATTIE KUHN 1 [facility] INE HCL UP TO 50 MG COMPREHEN 46564 [facility] SIVE 1 [facility] PANEL URINE 40860 [facility] 1 [facility] VISUAL COLOR CMPRSN METHS COLLECTIO 36404 [facility] N VENOUS 1 [facility] VENIPUNCT URE BLOOD 93431 [facility] COUNT 1 [facility] AUTO&[place] [address] [facility] ABDOMEN & 1 [facility] PELVIS [facility] W/CONTRAS T MATERIAL THER 68048 [facility] PROPH/DX 1 [facility] NJX IV [facility] PUSH SINGLE/1S T SBST/DRUG URNLS DIP 55772 [facility] 1 [facility] STICK/TAB [facility] HOSP[facility] LET REAGENT AUTO MICROSCOP Y RADEX 01562 [facility] HAND 1 FERMÍN MINIMUM 3 RADIOLOGY VIEWS ASSOCIAT APPLICATI 27140 HATTIE BLANK ON FINGER 1 CO [facility] STATIC IAADIADOO 28830 REJI MAYBERRY DARRION 1 [facility]ICAL [facility]IN[facility] CCUS GROUP A SMR PRIM 09046 HATTIE KUHN SRC 0 CO CO GRAM/GIEM HEALTH SYSTEM SA STAIN BCT FUNGI/DARELL L CUL BACT 89160 HATTIE KUHN XCPT 0 CO CO URINE [facility] BLOOD/STO OL AEROBIC ISOL PRESSURIZ 49280 HATTIE KUHN ED/NONPRE 0 CO CO SSURIZED [facility]OSPITAL INHALATIO N TREATMENT HOSPITAL 44280 [facility] DISCHARGE 0 DREAD DREAD DAY MANAGEMEN T 30 MIN/< ELECTROLY 84791 HATTIE KUHN TE PANEL 0 CO [facility] URNLS DIP 62626 HATTIE KUHN 0 CO CO STICK/TAB [facility] HOSPITAL LET REAGENT AUTO MICROSCOP Y US PELVIC 48680 HATTIE KUHN 0 CO CO NONOBSTET HEALTH SYSTEM FERMÍN REAL-TIME IMAGE COMPLETE PRESSURIZ 12488 HATTIE KUHN ED/NONPRE 0 CO CO SSURIZED HEALTH SYSTEM INHALATIO N TREATMENT BLOOD 96084 HATTIE KUHN COUNT 0 CO CO SMEAR [facility] W/MNL DIFRNTL WBC COUNT INITIAL 62084 [facility] 0 DREAD DREAD CARE/DAY 50 MINUTES COLLECTIO 35069 HATTIE KUHN N VENOUS 0 CO CO BLOOD HEALTH SYSTEM VENIPUNCT [facility] G0378 HATTIE KUHN OBSERVATI 0 CO CO ON HOSPITAL HOSPITAL SERVICE PER HOUR COLLECTIO 74434 HATTIE Jiménez VENOUS 0 CO CO [facility]LOOD [facility] BASIC 74764 HATTIE KUHN METABOLIC 0 CO CO PANEL [facility]ALTH SYSTEM CALCIUM TOTAL GONADOTRO 77688 HATTIE KUHN PIN 0 CO CO CHORIONIC HEALTH SYSTEM QUALITATI VE BLOOD 00174 HATTIE KUHN COUNT 0 [facility]ITAL MCRSCP W/MNL DIFRNTL WBC COUNT CUL BACT 16422 HATTIE HATTIE XCPT 0 CO CO URINE HEALTH SYSTEM BLOOD/STO OL AEROBIC ISOL ANTIBODY 39047 HATTIE KUHN INFLUENZA 0 CO CO VIRUS HEALTH SYSTEM RADIOLOGI 39968 HATTIE KUHN C EXAM 0 CO CO CHEST 2 HEALTH SYSTEM VIEWS FRONTAL&[place] [address] HATTIE KUHN INFUSION 0 CO CO THERAPY/P HEALTH SYSTEM ROPHYLAXI S /DX 1ST TO 1 [place] [address] HATTIE KUHN STREPTOCO 0 CO CO CCUS HEALTH SYSTEM GROUP A URNLS DIP 64280 HATTIE KUHN 0 CO CO STICK/TAB HEALTH SYSTEM LET REAGENT AUTO MICROSCOP Y PRESSURIZ 72617 HATTIE KUHN ED/NONPRE 0 CO CO SSURIZED HEALTH SYSTEM INHALATIO N TREATMENT RADEX 84822 HATTIE KUHN HAND 0 CO CO MINIMUM 3 [facility] VIEWS CT PELVIS 00981 [facility] [place] RADHA, 0 RADIOLOGY VALERIE D W/CONTRAS T MATERIAL BLOOD 45482 [facility] COUNT 0 [facility] AUTO&[place] [address] [facility] RAD[facility], ABDOMEN 0 RADIOLOGY VALERIE D W/CONTRAS T MATERIAL BASIC 47380 [facility] METABOLIC 0 [facility] CALCIUM TOTAL URINLS 84129 [facility] YOU[facility], DIP 0 MEDICAL DINAH R STICK/TAB CLINIC LET REAGNT NON-AUTO MICRSCPY COLLECTIO 99346 [facility] N VENOUS 0 [facility] [place] [address] [facility] THYROID 0 [facility] [place] [address] [facility] INSULIN 0 [facility] [place] [address] [facility] PROLACTIN 0 [facility] GLUCOSE 68251 [facility] QUANTITAT 0 [facility] MORENITA BLOOD XCPT REAGENT STRIP DEHYDROEP 72016 [facility] IANDROSTE 0 [facility] JEWEL-SULF ATE CULTURE 35190 [facility] BACTERIAL 0 AMERIC [employer] HOLDING HOLDING QUANTTATI VE COLONY COUNT URINE URINLS 48823 [facility] YOUNG, DIP 0 MEDICAL DINAH R STICK/TAB CLINIC LET REAGNT NON-AUTO MICRSCPY URINLS 23718 [facility] YOUNG, DIP 0 MEDICAL DINAH R STICK/TAB CLINIC LET REAGNT NON-AUTO MICRSCPY URINE 12189 [facility] YOUNG, 0 MEDICAL DINAH R TEST CLINIC VISUAL COLOR CMPRSN METHS ORTHOPTIC 13041 [facility], 9 VISION ZEINAB S &/PLEOPTI ANDLEARNI C NG TRAINING W/[place] [address] [facility], 1/> AREAS 9 VISION ZEINAB S EACH 15 ANDLEARNI MIN NG NEUROMUSC REEDUCA THERAPEUT 94410 [facility], IC PX 1/> 9 VISION ZEINAB S AREAS ANDLEARNI EACH 15 NG MIN EXERCISES THERAPEUT 59827 [facility], IC PX 1/> 9 VISION ZEINAB S AREAS ANDLEARNI EACH 15 [place] [address] [facility], 1/> AREAS 9 VISION ZEINAB S EACH 15 ANDLEARNI MIN NG NEUROMUSC REEDUCA ORTHOPTIC 00852 [facility], 9 VISION ZEINAB S &/PLEOPTI ANDLEARNI C NG TRAINING W/MEDICAL DIRECTJ ORTHOPTIC 07697 [facility], 9 VISION ZEINAB S &/PLEOPTI ANDLEARNI C NG TRAINING W/MEDICAL DIRECTJ THERAPEUT 39802 [facility], IC PX 1/> 9 VISION ZEINAB S AREAS ANDLEARNI EACH 15 [place] [address] [facility], 1/> AREAS 9 VISION ZEINAB S EACH 15 [place] [address] [place], ABDOMINAL 9 ZEINAB S REAL RADIOLOGY TIME W/IMAGE ASSOCIATE DOCUMENTA S PSC TION URNLS DIP 62538 HATTIE VICKOLAS 9 CO CO STICK/TAB [facility] LET REAGENT AUTO MICROSCOP Y RADEX 94647 [facility] [place], ELBOW 9 ZEINAB S COMPLETE RADIOLOGY MINIMUM 3 VIEWS ASSOCIATE S PSC CULTURE 32487 HATTIE KUHN BACTERIAL 9 CO [facility] QUANTTATI VE COLONY COUNT URINE RADIOLOGI 11507 [facility] C 9 ZEINAB S EXAMINATI RADIOLOGY ON PELVIS 1/2 ASSOCIATE VIEWS S PSC RADEX 04663 [facility], SHOULDER 9 ZEINAB S COMPLETE RADIOLOGY MINIMUM 2 VIEWS ASSOCIATE S PSC RADEX HIP 46277 [facility] [place], Tonya ZEINAB S UNILATERA RADIOLOGY L COMPLETE ASSOCIATE MINIMUM 2 S PSC VIEWS THERAPEUT 02363 [facility] [place], IC PX 1/> 9 VISION ZEINAB S AREAS ANDLEARNI EACH 15 [place] [address] [facility]ILDRENS [facility]RAE[facility], 1/> AREAS 9 VISION ZEINAB S EACH 15 ANDLEARNI MIN NG NEUROMUSC REEDUCA ORTHOPTIC 37867 [facility], 9 VISION ZEINAB S &/PLEOPTI ANDLEARNI C NG TRAINING W/MEDICAL DIRECTJ ORTHOPTIC 22315 [facility], 9 VISION ZEINAB S &/PLEOPTI ANDLEARNI C NG TRAINING W/[place] [address] [facility]DR[facility]RA[facility], 1/> AREAS 9 VISION ZEINAB S EACH 15 ANDLEARNI MIN NG NEUROMUSC REEDUCA THERAPEUT 17847 [facility] [place], IC PX 1/> 9 VISION ZEINAB S AREAS ANDLEARNI EACH 15 NG MIN EXERCISES THERAPEUT 33445 [facility] [place], IC PX 1/> 9 VISION ZEINAB S AREAS ANDLEARNI EACH 15 [place] [address] [facility]ILDRENS [facility]RAE[facility], 1/> AREAS 9 VISION ZEINAB S EACH 15 ANDLEARNI MIN NG NEUROMUSC REEDUCA ORTHOPTIC 01769 [facility], 9 VISION ZEINAB S &/PLEOPTI ANDLEARNI C NG TRAINING W/MEDICAL DIRECTJ SENSORMOT 74759 [place], [place] XM 9 VISION ZEINAB S W/DIRECTOR OF ANCILLARY SERVICES ANDLEARNI HILDA NG OCULAR DEVIJ W/I&R SPX FITTING 54961 [facility] SPECTACLE 9 [facility] ZEINAB [place] S XCPT ASSOCIATE APHAKIA S MONOFOCAL DETERMINA 02945 FAMILY F[facility]CON TION 9 [facility] ZEINAB S REFRACTIV ASSOCIATE E STATE S OPHTH 47571 FAMILY F[facility]CON, MEDICAL 9 [facility] ZEINAB S XM&EVAL ASSOCIATE COMPRE S NEW PT 1/> VST FRAMES V2020 [facility] PURCHASES 9 [facility] ZEINAB S ASSOCIATE S 1 VISN V2103 [facility] PLANO 9 [facility] ZEINAB S TO+/-4.00 ASSOCIATE D SPHER S 0.12-2.00 D CYL EA CUL BACT 20126 HATTIE KUHN XCPT 9 CO CO URINE [facility] BLOOD/STO OL AEROBIC ISOL ANTIBODY 71655 HATTIE KUHN INFLUENZA 9 CO CO VIRUS [facility] [place] [address] HATTIE KUHN STREPTOCO 9 CO CO [facility] GROUP A CUL BACT 94700 HATTIE KUHN XCPT 9 CO CO URINE [facility] BLOOD/[place] [address] HATTIE KUHN STREPTOCO 9 CO [facility] [place] [address] HATTIE KUHN STREPTOCO 9 CO CO [facility] GROUP A CUL BACT 16922 HATTIE KUHN XCPT 9 CO CO URINE [facility] BLOOD/STO OL AEROBIC ISOL THER 42948 HATTIE KUHN PROPH/DX 8 CO CO [facility] SUBQ/IM RADEX 46356 HATTIE KUHN FOOT 8 CO CO COMPLETE [facility] MINIMUM 3 VIEWS RADEX 05345 HATTIE KUHN ANKLE 8 CO CO COMPLETE [facility] MINIMUM 3 VIEWS RADIOLOGI 67669 HATTIE KUHN C 8 CO CO [facility] ON KNEE 3 VIEWS RADIOLOGI 17799 AMBERSONAlex IVEY 8 ZEINAB S EXAMINATI RADIOLOGY ON KNEE 1/2 VIEWS ASSOCIATE S [facility] RADIOLOGI 02689 AMBERSONAlex IVEY 8 ZEINAB S EXAMINATI RADIOLOGY ON FOOT 2 VIEWS ASSOCIATE S [facility] RADIOLOGI 54834 AMBERSONAlex IVEY 8 ZEINAB S EXAMINATI RADIOLOGY ON ANKLE 2 VIEWS ASSOCIATE S [facility] DEMO&/KERWIN 82187 INGE ALCAZAR, L OF PT 8 CHAD B CHAD B UTILIZ AERSL GEN/NEB/I NHLR/IP INTRACUTA 45129 INGE, INGE, NEOUS 8 CHAD B CHAD B TESTS W/ALLERGE KIERA EXTRACTS PERCUTANE 59767 INGEINGE PICHARDO, OUS TESTS 8 CHAD B CHAD B W/ALLERGE KIERA EXTRACTS BRNCDILAT 16873 INGE ALCAZAR, RSPSE 8 CHAD B CHAD B [facility] 26101 [facility] DISCHARGE 7 Y OF [facility] DAY [place] MANAGEMEN PEDIA T 30 MIN/< SBSQ 17366 [facility] 7 [facility] [place] 25 PEDIA MINUTES SBSQ 88193 [facility] 7 Y OF [facility] CARE/DAY [place] 25 PEDIA MINUTES ECG 81122 [facility] ROUTINE 7 Y OF ECG [place] W/LEAST PEDIA 12 LDS W/I&R INITIAL 06468 [facility] 7 Y OF CARE/DAY [place] 70 PEDIA MINUTES Encounters Encounter Start End Date Code Location Performer Type Date OFFICE 65638 [facility] 7 7 ASTHMA III T NEW 45 ASSOC OF MINUTES TH OFFICE 43711 VELIA SCHMITZ- OUTPATIEN 7 7 CLINIC SE T VISIT 15 MINUTES [facility] EVANGELICAL - 7 7 HEALTH OUTPATIEN [place] T PERIODIC 03020 [facility] 7 7 [facility] E MED EST [facility] DE[facility] PATIENT KIERA KIERA 18-39 YRS [facility] 7 7 [facility] 7 7 [facility] T OFFICE 30207 [facility] 7 7 [facility] T VISIT [facility] 10 KIERA KIERA MINUTES OFFICE 91538 [facility] 7 7 HEALTH T NEW 60 MEDICAL MINUTES [facility] 88684 [facility] 7 EMERGENCY VISIT PHYS PSC HIGH SEVERITY& THREAT [facility] - 7 7 [facility] OFFICE 65268 NONA NONA [facility] 7 7 T NEW 20 MINUTES OFFICE 62114 KASI VILLAGOMEZ [facility] 7 7 PHYSICIAN T VISIT PRACTICE 15 L MINUTES OFFICE 67937 VELIA BARNETT [facility] 7 7 CLINIC SE T VISIT 15 MINUTES HOSPITAL [facility] - 7 7 [facility] OUTPATIEN INC T EMERGENCY 14330 [facility] 7 7 [facility] DEPARTMEN INC T VISIT LOW/MODER SEVERITY EMERGENCY 70095 CLEMENT MUNIZ 7 7 PHYSICIAN DEPARTMEN S, [facility] T VISIT HIGH/URGE NT SEVERITY OFFICE 32733 [facility] 7 7 [facility] T [facility] 10 KIERA KIERA MINUTES OFFICE 44496 VELIA LEZAMA [facility] 7 7 CLINIC T VISIT 15 MINUTES EMERGENCY 14954 [facility] 6 6 DARRIN PAT DEPARTMEN EMERGENCY T VISIT PHYS HIGH/URGE NT SEVERITY [facility] 6 6 [facility] T EMERGENCY 46666 [place] 6 6 [facility] T VISIT MODERATE SEVERITY OFFICE 09367 [facility] 6 [facility] T VISIT 5 HLTH DEPT HLTH DEPT MINUTES KIERA KIERA OFFICE 34165 [facility] 6 [facility] T VISIT HL[facility] DEPT HLTH DEPT 10 KIERA KIERA MINUTES OFFICE 77768 VELAI BARNETT [facility] 6 6 [facility] T VISIT 15 MINUTES EMERGENCY 37356 [place] 6 6 [facility] T VISIT LOW/MODER SEVERITY [facility]OSPITAL [place] - 6 6 [facility] T EMERGENCY 70703 [facility] 6 6 [facility] EMERGENC[facility] T VISIT PHYS MODERATE SEVERITY EMERGENCY 13953 [facility] 6 6 [facility] EMERGENCY T VISIT PHYS HIGH/URGE NT SEVERITY EMERGENCY 17598 [place] 6 6 [facility] T VISIT MODERATE SEVERITY [facility]OSP[facility] [place] - 6 6 [facility] T PERIODIC 09019 [facility] 6 6 [facility] E MED EST TH DEPT TH DEPT PATIENT KIERA KIERA 18-39 YRS HOSPITAL [place] - 6 6 [facility] T EMERGENCY 36711 [place] 6 6 [facility] T VISIT MODERATE SEVERITY EMERGENCY 15778 [facility] 6 6 [facility] T VISIT PHYS HIGH/URGE NT SEVERITY [facility]OS[facility] [place] - 6 6 [facility] T OFFICE 63540 BLACK DELCID [facility] 6 6 DIGESTIVE CEC T VISIT CARE 25 CENTER MINUTES OFFICE 54304 VELIA SCHMITZ- OUTPATIEN 6 6 CLINIC SE SARAH T VISIT 25 MINUTES OFFICE 00491 [facility] 6 [facility] T [facility]ISIT HLTH [facility] DE[facility] 10 KIERA KIERA MINUTES OFFICE 88388 VELIA OATES OUTPATIEN 6 6 CLINIC T VISIT 15 MINUTES OFFICE 22586 BL[facility]CID OUTPATIEN 6 6 [facility] T NEW 45 CARE MINUTES CENTER OFFICE 46722 VELIA SCHMITZ-SHANON OUTPATIEN 6 6 [facility]INIC [facility] T VISIT 15 MINUTES OFFICE 26446 HATTIE RESENDIZ OUTPATIEN 6 6 [facility] T VISIT URGENT 25 TREAT MINUTES OFFICE 72132 [facility] 6 [facility]ISIT HL DEPT [facility] 10 KIERA KIERA MINUTES OFFICE 98455 HATTIE RESENDIZ OUTPATIEN 6 6 [facility] T VISIT URGENT 25 TREAT MINUTES EMERGENCY 59495 VORKPOR VORKPOR 5 5 EMIGDIO BEAL DEPARTMEN T VISIT HIGH/URGE NT SEVERITY OFFICE 16918 HATTIE HUNTER OUTPATIEN 5 5 [facility] T VISIT URGENT 25 TREAT MINUTES OFFICE 73538 [facility] 5 5 [facility] T VISIT HLTH DEPT [facility] DEPT 10 KIERA KIERA MINUTES OFFICE 51448 EAR, NOSE SHASHY CONSULTAT 5 5 AND MIRANDA ION THROAT NEW/ESTAB SPECIAL PATIENT 60 MIN OFFICE 99410 HATTIE RESENDIZ OUTPATIEN 5 5 [facility] T VISIT URGENT 25 TREAT MINUTES EMERGENCY 64446 VORKPOR VORKPOR 5 5 EMIGDIO BEAL DEPARTMEN T VISIT HIGH/URGE NT SEVERITY INITIAL 72320 [facility] 5 5 [facility] TH [facility]PT [facility] DEPT MEDICINE KIERA KIERA NEW PT AGE 18-39YRS [facility] MIMI - 5 5 [facility] 63616 MIMI 5 5 [facility] T VISIT LOW/MODER SEVERITY EMERGENCY 97783 CLEMENT HERNADEZ 5 5 [facility] T VISIT MODERATE SEVERITY [facility] 5 5 [facility] T EMERGENCY 77403 [facility] 5 5 [facility] T VISIT HIGH/URGE NT SEVERITY EMERGENCY 53632 [facility] 5 5 EDW EDW VISIT HIGH SEVERITY& THREAT [facility] 5 5 [facility] T OFFICE 17284 VELIA SCHMITZ-SHANON [facility] 5 5 CLINIC [facility] T VISIT 15 MINUTES EMERGENCY 97144 KASI 5 5 [facility] T VISIT HIGH/URGE NT SEVERITY OFFICE 25178 VELIA SCHMITZ-SHANON OUTPATI 5 5 CLINIC [facility] T VISIT 15 MINUTES [facility] 5 5 [facility] T OFFICE 55490 INGE ALCAZAR [facility] 5 5 CHAD CHAD T VISIT 25 MINUTES EMERGENCY 62867 SESAR HERNADEZ DEPT 4 4 VISIT HIGH SEVERITY& THREAT [facility] OFFICE 43428 VELIA OATES [facility] 4 4 CLINIC T VISIT 15 MINUTES OFFICE 85352 MEANS BUTROS OUTPATIEN 4 4 ADULT MARISEL T VISIT PRIMARY 15 CARE CLI MINUTES HOSPITAL MIMI - 4 4 [facility] T OFFICE 56743 VELIA OATES OUTPATIEN 4 4 CLINIC T VISIT 15 MINUTES OFFICE 04909 MEANS BUTROS OUTPATIEN 4 4 ADULT MARISEL T VISIT PRIMARY 15 CARE CLI MINUTES OFFICE 66046 VELIA OATES OUTPATIEN 4 4 CLINIC T VISIT 15 MINUTES OFFICE 43322 MEANS BUTROS OUTPATIEN 4 4 ADULT MARISEL T VISIT PRIMARY 15 CARE CLI MINUTES EMERGENCY 41130 MIMI 4 4 [facility] DEPARTMEN INC T VISIT LOW/MODER SEVERITY HOSPITAL MIM[facility] - 4 4 [facility] OUTPATIEN INC T EMERGENCY 63636 DEANGELO MUNIZ 4 4 [facility] T VISIT MODERATE SEVERITY OFFICE 70632 VELIA SCHMITZ-SHANON OUTPATIEN 4 4 [facility] T VISIT 15 MINUTES OFFICE 48928 VELIA SCHMITZ-SHANON OUTPATIEN 4 4 CLINIC [facility] T VISIT 15 MINUTES OFFICE 98423 MEANS BUTROS OUTPATIEN 4 4 ADULT MARISEL T VISIT PRIMARY 15 CARE CLI MINUTES OFFICE 16328 INTEGRITY RICHARDS, OUTPATIEN 4 4 JR. LOTUS T VISIT ORTHOPAED 15 ICS SPORT MINUTES [facility] 4 4 [facility] OUTPATIEN AUSTEN T EMERGENCY 73882 FLAVIO MUNIZ 4 4 JANA JANA DEPARTMEN T VISIT MODERATE SEVERITY OFFICE 35890 INTEGRITY CHATFREDIA OUTPATIEN 4 4 SHANNON T VISIT ORTHOPAED 15 ICS SPORT MINUTES OFFICE 02556 VELIA SCHMITZ- OUTPATIEN 4 4 [facility] T VISIT 15 MINUTES OFFICE 94034 CHATKELBY DAMICO OUTPATIEN 4 4 SHANNON SHANNON T NEW 30 MINUTES OFFICE 43489 LUIS FERNANDO LUIS FERNANDO CONSULTAT 4 4 LES LES ION NEW/ESTAB PATIENT 40 MIN OFFICE 49329 VELIA RICHARDSON OUTPATIEN 4 4 CLINIC SERA T VISIT 25 MINUTES OFFICE 87364 VELIA SCHMITZ- OUTPATIEN 4 4 CLINIC SE SMITH T VISIT [address]ES [address] [facility] 4 4 [facility] T VISIT [address]ES [address] [facility] 4 4 [place] T VISIT 15 MINUTES [facility]OSPITAL [facility] - 4 4 PRIMARY CARE NURSE PRACTITIONER OUTPATIEN HATTIE T CO HOS [facility] - 4 4 PRIMARY CARE NURSE PRACTITIONER OUTPATIEN HATTIE T [facility]OS OFFICE 70664 [facility] OUT[facility] 4 4 [place] T VISIT 10 MINUTES OFFICE 02647 INGE ALCAZAR OUTPATIEN 4 4 CHAD CHAD T VISIT [address] [facility] 4 4 [place] T VISIT 15 MINUTES OFFICE 26710 ASTRID RESENDIZ OUTPATIEN 4 4 KAREN JONES T VISIT [address] [facility] PREVENTIV 4 4 [place] E MED EST PATIENT 12-17YRS EMERGENCY 36971 [facility], 4 4 PRIMARY CARE NURSE PRACTITIONER DEPARTMEN HATTIE T VISIT CO HOS HIGH/URGE NT SEVERITY [facility]OSPITAL [facility] - 4 4 PRIMARY CARE NURSE PRACTITIONER OUTPATIEN HATTIE T [facility] OFFICE 44571 [facility] 4 4 [place] T VISIT [address] [address] [facility] OUT[facility] 3 3 [place] T VISIT 15 MINUTES OFFICE 49319 INGE BANKSHBURN OUTPATIEN 3 3 CHAD BONILLA T VISIT [address]ES [address] [facility] 3 3 [place] T VISIT 15 MINUTES HOSPITAL [facility] - 3 3 PRIMARY CARE NURSE PRACTITIONER OUTPATIEN HATTIE T CO HOS OFFICE 59338 INGE INGE OUTPATIEN 3 3 CHAD BONILLA T VISIT 15 MINUTES OFFICE 97450 ASTRID RESENDIZ [facility] 3 3 KAREN JONES T VISIT 15 MINUTES HOSPITAL [facility] - 3 3 PRIMARY CARE NURSE PRACTITIONER [facility]ATTIE T CO HOS OFFICE 35984 INGE INGE CONSULTAT 3 3 CHAD BONILLA ION NEW/ESTAB PATIENT 80 MIN HOSPITAL [place] - 3 3 [facility] T OFFICE 12235 [facility] 3 3 [place] T V[facility]IT 15 MINUTES [facility] - 3 3 [facility] T OFFICE 95231 ALLRAN JR ALLRAN JR CONSULTAT 3 3 KASSANDRA HUGO NEW/ESTAB PATIENT 40 MIN OFFICE 39853 [facility] 3 3 [place] T VISIT 15 MINUTES HOSPITAL [facility] - 3 3 PRIMARY CARE NURSE PRACTITIONER [facility] HATTIE T CO HOS OFFICE 15607 ASTRID RESENDIZ [facility] 3 3 KAREN JONES T VISIT 15 MINUTES HOSPITAL [facility] - 3 3 PRIMARY CARE NURSE PRACTITIONER INPATIENT HATTIE CO HOS EMERGENCY 91440 KARI PIERCE 3 3 MARIANA PEÑA [facility] T VISIT HIGH/URGE NT [facility] UNIVERSIT - 3 3 Y [facility] - 3 3 PRIMARY CARE NURSE PRACTITIONER OUTPATIEN HATTIE T CO HOS OFFICE 74531 AHMED ADN AHMED ADN OUTPATIEN 3 3 T VISIT 15 MINUTES OFFICE 39275 VITOR ADLER OUTPATIEN 3 3 TONYA TONYA T NEW 30 MINUTES OFFICE 51218 VELIA BARNETT OUTPATIEN 3 3 [facility] T VISIT 15 MINUTES HOSPITAL [facility], - 3 3 PRIMARY CARE NURSE PRACTITIONER OUTPATIEN HATTIE T CO HOS OFFICE 77753 VELIA SCHMITZ- OUTPATIEN 3 3 [facility]IN[facility] T NEW 30 MINUTES OFFICE 86309 MARYANN MARYANN OUTPATIEN 3 3 ALICIA ALICIA T VISIT 40 MINUTES OFFICE 52708 AHMED ADN AHMED ADN OUTPATIEN 2 2 T VISIT 15 MINUTES OFFICE 96610 [facility] OUTPATI[facility] 2 2 T MANUEL T MANUEL T VISIT 25 MINUTES HOSPITAL UNIVERSIT - 2 2 Y [facility], - 2 2 PRIMARY CARE NURSE PRACTITIONER OUTPATIEN HATTIE T CO HOS OFFICE 64043 [facility], OUTPATIEN 2 2 PRIMARY CARE NURSE PRACTITIONER T VISIT 5 HATTIE MINUTES CO HOS OFFICE 08233 AHMED ADN AHMED ADN OUTPATIEN 2 2 T VISIT 15 MINUTES EMERGENCY 01856 [facility], 2 2 PRIMARY CARE NURSE PRACTITIONER DEPARTMEN HATTIE T VISIT CO HOS LOW/MODER SEVERITY [facility]ITAL [facility] - 2 2 PRIMARY CARE NURSE PRACTITIONER OUTPATIEN HATTIE T CO HOS OFFICE 81337 AHMED ADN AHMED ADN OUTPATIEN 2 2 T NEW 60 MINUTES OFFICE 63301 [facility] CONSULTAT 2 2 T MANUEL T MANUEL ION NEW/ESTAB PATIENT 40 MIN HOSPITAL [facility] - 2 [facility] 88914 [facility], 2 2 PRIMARY CARE NURSE PRACTITIONER DEPARTMEN HATTIE T VISIT CO HOS MODERATE SEVERITY HOSPITAL [facility], - 2 2 PRIMARY CARE NURSE PRACTITIONER OUTPATIEN HATTIE T CO HOS EMERGENCY 67867 [facility], 2 2 PRIMARY CARE NURSE PRACTITIONER DEPARTMEN HATTIE T VISIT CO HOS LIMITED/M INOR PROB OFFICE 72043 MD DIEGO CORTEZ MD OUTPATINANCI 2 2 STEPHEN MITCHELL T VISIT 15 MINUTES OFFICE 23877 SARY OKEEFE CONSULTAT 2 2 JOSE GARCIA ION NEW/ESTAB PATIENT 60 MIN [facility] 2 2 [facility] T OFFICE 13860 PER JR PER RODRIGUEZ OUTPATIEN 2 2 VIRGINIE VIRGINIE T VISIT 15 MINUTES [facility]ERGENCY 85211 [facility] 2 2 [facility] T VISIT HIGH/URGE NT SEVERITY OFFICE 13430 PER JR PER RODRIGUEZ OUTPATIEN 2 2 VIRGINIE VIRGINIE T VISIT 15 MINUTES EMERGENCY 62229 SESAR HERNADEZ DEPT 2 2 VISIT HIGH SEVERITY& THREAT [facility] - 2 2 [facility] T OFFICE 41195 MD DIEGO CORTEZ MD OUTPATINANCI 2 2 STEPHEN MITCHELL T VISIT 15 MINUTES OFFICE 92838 JEFE MAYBERRY DARRION OUTPATIEN 2 2 T VISIT 15 MINUTES OFFICE 80245 MAYBERRY DARRION MAYBERRY DARRION OUTPATIEN 2 2 T VISIT 25 MINUTES OFFICE 90396 JEFE MAYBERRY [facility]ARRION OUTPATIEN 2 2 T VISIT 15 MINUTES OFFICE 34113 JEFE MAYBERRY DARRION OUTPATIEN 1 1 T VISIT 15 MINUTES OFFICE 06311 MAYBERRY DARRION MAYBERRY DARRION OUTPATIEN 1 1 T VISIT 15 MINUTES EMERGENCY 00182 HATTIE 1 1 [facility] T VISIT LIMITED/M INOR PROB EMERGENCY 46801 HATTIE 1 1 [facility] T VISIT LOW/MODER SEVERITY HOSPITAL HATTIE - 1 1 [facility] T OFFICE 37181 MD DIEGO CORTEZ MD OUTPATIEN 1 1 STEPHEN MITCHELL T NEW 30 MINUTES EMERGENCY 14960 HIEN EVI 1 1 [facility] SERV T VISIT FOUNDATIO HIGH/URGE NT SEVERITY HOSPITAL UNIVERSIT - 1 1 Y [facility] HOSPITAL T EMERGENCY 12224 UNIVERSIT DEPT 1 1 Y VISIT HOSPITAL HIGH SEVERITY& THREAT FUNCJ EMERGENCY 43534 HATTIE 1 1 [facility] T VISIT HIGH/URGE NT SEVERITY HOSPITAL HATTIE - 1 1 [facility] 1 1 [facility] T EMERGENCY 41870 [facility] 1 1 [facility] T VISIT HIGH/URGE NT SEVERITY OFFICE 72996 REJI MAYBERRY DARRION OUTPATIEN 1 1 MEDICAL T VISIT CLINIC 25 MINUTES EMERGENCY 33069 HATTIE 1 1 [facility] T VISIT LOW/MODER SEVERITY HOSPITAL HATTIE - 1 1 [facility] T OFFICE 17789 REJI MAYBERRY DARRION OUTPATIEN 1 1 MEDICAL T VISIT CLINIC 25 MINUTES OFFICE 83127 SPIREK SPIREK OUTPATIEN 0 0 ANI ANI T VISIT 15 MINUTES HOSPITAL HATTIE - 0 0 [facility] T EMERGENCY 03770 HATTIE DEPT 0 0 CO VISIT HOSPITAL HIGH SEVERITY& THREAT FUNCJ OFFICE 21236 REJI ALBARADO CHE OUTPATIEN 0 0 MEDICAL T VISIT CLINIC 15 MINUTES HOSPITAL HATTIE - 0 0 [facility] T EMERGENCY 93915 HATTIE 0 0 [facility] T VISIT MODERATE SEVERITY [facility]OSPITAL [place] - 0 0 [facility] T OFFICE 22395 REJI ALBARADO OUTPATIEN 0 0 MEDICAL DINAH R T VISIT CLINIC 25 MINUTES OFFICE 80721 SPIREKMIRYAM OUTPATIEN 0 0 MONROE J MONROE J T NEW 30 MINUTES OFFICE 01904 REJI ALBARADO OUTPATIEN 0 0 MEDICAL IDNAH R T VISIT CLINIC 25 MINUTES PERIODIC 21969 REJI ALBARADO, PREVENTIV 0 0 MEDICAL DINAH R E MED EST CLINIC PATIENT 12-17YRS OFFICE 08884 [facility] GONZALO OUTPATIEN 9 9 ZAMORA MANE A T VISIT INTERNAL 15 MED MINUTES HOSPITAL HATTIE Gong 9 9 [facility] EMERGENC[facility] 57884 HATTIE JAIN 9 9 [facility] SE[facility] H[facility] HATTIE Castaneda 9 [facility] EMERGENCY 93343 HATTIE 9 9 [facility] T VISIT LOW/MODER SEVERITY OFFICE 37561 [facility] GONZALO OUTPATIEN 9 9 ZAMORA MANE A T VISIT INTERNAL 15 MED MINUTES OFFICE 07727 [facility] 9 [facility] T VISIT INTERNAL MOODY F 15 MED MINUTES HOSPITAL HATTIE Gong 9 9 CO [facility] T OFFICE 32814 [facility] SIENA OUTPATIEN 9 9 ZAMORA DOUGLAS T VISIT INTERNAL 10 MED MINUTES HOSPITAL HATTIE Gong 9 9 [facility] H[facility]PITAL HATTIE Gong 9 9 [facility] EMERGENCY 97449 HATTIE BLANK, 8 8 [facility] T VISIT LIMITED/M INOR [facility] HATTIE Ortega 8 CO [facility] T HOSPITAL HATTIE - 8 8 [facility] T EMERGENCY 12652 HATTIE 8 8 [facility] T VISIT LIMITED/M INOR PROB EMERGENCY 13462 HATTIE BLANK, 8 8 CO [facility] T VISIT LOW/MODER SEVERITY OFFICE 26927 KRYS UMAÑA 8 8 ZAMORA DOUGLAS T VISIT INTERNAL 10 MED MINUTES OFFICE 50353 INGE ALCAZAR, CONSULTAT 8 8 CHAD B CHAD B ION NEW/ESTAB PATIENT 40 MIN OFFICE 16632 KRYS UMAÑA 8 8 ZAMORA DOUGLAS VISIT INTERNAL 15 MED MINUTES
--- OUTSIDE RECORDS SUMMARY | 2017-09-01 10:22 | External Medical Summary Rpt | CCD ---
Author Author , SJ Hunter SJ Address Unknown Phone [email or web address] Care Team Providers Care Senior Engineering Associate Name Role Phone [employer] Unavailable Unavailable INC, [employer] AHMED ADN, AHMED ADN Unavailable Unavailable AHMED ADN, AHMED ADN Unavailable Unavailable [facility] Unavailable [facility]available [facility] ALLRAN JR KASSANDRA, ALLRAN Unavailable Unavailable JR KASSANDRA SWISS AMBULETT & Unavailable Unavailable AMBULANC, SWISS AMBULETT & AMBULANC SWISS AMBULETT & Unavailable Unavailable AMBULANC, SWISS AMBULETT & AMBULANC LUIS FERNANDO LES, LUIS FERNANDO Unavailable Unavailable LES LUIS FERNANDO LES, LUIS FERNANDO Unavailable Unavailable LES [facility] Unavailable Unavailable [place], [facility] Unavailable Unavailable MEDICAL GROUP, [facility] BEINEKE NANI, BEINEKE Unavailable Unavailable NANI CURRAN AURORA, CURRAN Unavailable Unavailable AURORA BESSON, MANE A, Unavailable Unavailable BESSON, MANE A [employer] Unavailable Unavailable INC., [employer] LEZAMA, LEZAMA Unavailable Unavailable LEZAMA LASHON, LEZAMA LASHON Unavailable Unavailable [facility] Unavailable Unavailable HOSPITAL, [facility] PH[facility]ICIAN Unavailable Unavailable PRACTICE L, [facility] [employer] Unavailable Unavailable CORBIN JAM, CORBIN JAM Unavailable Unavailable [facility], Unavailable Unavailable [facility] SARAH, Unavailable Unavailable [facility] SARAH BUTROS MARISEL, BUTROS Unavailable Unavailable MARISEL [facility], Unavailable Unavailable [facility] PIERCE MARIANA, PIERCE Unavailable Unavailable MARIANA PIERCE MARIANA, PIERCE Unavailable Unavailable MARIANA [facility] Unavailable Unavailable [facility], [facility] Unavailable Unavailable [facility]OC, [facility] ANNE ALDEN, ANNE Unavailable Unavailable ALDEN CHATTHA SHANNON, CHATTHA Unavailable Unavailable SHANNON [facility] Unavailable Unavailable [place] WAI ANIBAL, CARRENO [...] [facility] MCINTYRE, MCINTYRE Unavailable Unavailable [facility] Unavailable Unavailable GROUP PS, [facility] Unavailable Unavailable [facility], [facility], Unavailable Unavailable [facility] Unavailable Unavailable [facility], [facility] Unavailable Unavailable [facility], [facility] Unavailable Unavailable [facility], [facility] Unavailable Unavailable HOLDINGS, [facility] [employer], Unavailable Unavailable [facility] [employer] [facility] ADLER TONYA, ADLER Unavailable Unavailable TONYA [...] B MAUL PRANAV, MAUL PRANAV Unavailable Unavailable [facility] Unavailable Unavailable ASSOCIAT, [facility] MOODY LOPEZ JR Unavailable Unavailable F, JOHN RODRIGUEZ, MOODY F [facility] Unavailable Unavailable CARE [facility], [facility] Unavailable Unavailable [facility], [facility] MAYBERRY DARRION, MAYBERRY DARRION Unavailable Unavailable MAYBERRY DARRION, MAYBERRY DARRION Unavailable Unavailable [facility], Unavailable Unavailable [facility] HERBERTH EDW, HERBERTH Unavailable Unavailable EDW HERBERTH EDW, HERBERTH Unavailable Unavailable EDW MD STEPHEN CORTEZ, DIEGO, Unavailable Unavailable MD [facility], Unavailable Unavailable [facility] Unavailable Unavailable AMBULANCE SE, [facility] Unavailable Unavailable AMBULANCE SE, [facility] SE [facility] Unavailable Unavailable URGENT TREAT, [facility]ENT [facility]RE[facility], Unavailable Unavailable [...] Unavailable Unavailable EQUIPME, [facility] Unavailable Unavailable EMERGENCY PHYS, [facility] EMERGENCY PHYS SPIREK ANI, SPIREK Unavailable Unavailable ANI SPIREK ANI, SPIREK Unavailable Unavailable ANI SPIREK, MONROE J, Unavailable Unavailable SPIREK, MONROE J [facility] Unavailable Unavailable [facility], [facility] EVI MAR, EVI Unavailable Unavailable [facility] Unavailable Unavailable SOLUTIONS IN, [facility] BROOKS DIOGENES, BROOKS Unavailable Unavailable DIOGENES SWINEY PAT, SWINEY Unavailable Unavailable PAT SWINEY PAT, SWINEY Unavailable Unavailable PAT TANOUS, JR EDW, Unavailable Unavailable TANOUS, JR EDW TANOUS, JR EDW, Unavailable Unavailable TANOUS, JR EDW ELADIO, ELADIO Unavailable Unavailable MONTILLA MOL, MONTILLA MOL Unavailable Unavailable [facility] Unavailable Unavailable LLC, [facility] MARYANN ALICIA, MARYANN Unavailable Unavailable ALICIA MARYANN ALICIA, MARYANN Unavailable Unavailable [facility], Unavailable Unavailable [facility] Unavailable [facility] VILLAFLOR OSI, Unavailable Unavailable VILLAFLOR OSI VILLAFLOR OSI, Unavailable Unavailable VILLAFLOR OSI VORKPOR EMIGDIO, VORKPOR Unavailable Unavailable EMIGDIO VORKPOR EMIGDIO, VORKPOR Unavailable Unavailable EMIGDIO [facility] Unavailable Unavailable #493, [id number] # Unavailable Unavailable [id number], [facility] # [id number] [facility] Unavailable Unavailable DEPT KIERA, [facility] DE[facility] K[facility] Unavailable Unavailable DEPT KIERA, [facility] DEPT KIERA YON[facility] ALB, Unavailable Unavailable [facility] YOUNG VIRGINIE, YOUNG VIRGINIE Unavailable Unavailable YOUNG JR VIRGINIE, YOUNG Unavailable Unavailable JR VIRGINIE YOUNG JR VIRGINIE, YOUNG Unavailable Unavailable JR VIRGINIE YOUNG, DINAH R, Unavailable Unavailable YOUNG, DINAH R [facility], Unavailable [facility]available [facility] RADHA, RADHA Unavailable Unavailable RADHA MAT, RADHA MAT Unavailable Unavailable VALERIE GARCIA, Unavailable Unavailable VALERIE GRACIA Purpose Continuity of Care Document - 02-19-2007 through 2016 Problems Code Diagnosis DOS Provider Status R21 RASH AND 08-01-2017 [facility] NONSPECIFIC ASSOC OF TH SKIN ERUPTION [id number] ADVERS EFF 08-01-2017 [facility] OTH RX MEDS [facility] BIO ASSOC OF SUBSTANCES INIT ENC [id number] ANAPHYLACTI 08-01-2017 [facility] & C SHOCK ASTHMA UNSPECIFIED ASSOC OF TH INITIAL ENCOUNTER J029 ACUTE 06-27-2017 [facility] PHARYNGITIS [facility]INIC UNSPECIFIED J4521 MILD 06-27-2017 [facility] INTERMITTEN CLINIC T ASTHMA WITH ACUTE EXACERBATIO N R198 OTH SPEC SX 06-13-2017 [facility] IN[facility]LV THE [place] DIGESTV SYS & ABD C56589 ENCOUNTER 06-07-2017 [facility] 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 GENERAL RTN HLTH DEPT W/O [...] TEST RESULT KIERA NEGATIVE R5383 OTHER 06-06-2017 [facility]UE [facility] [place] Z0000 ENCOUNTER 06-06-2017 [facility] GEN ADULT HEALTH MED EXAM [place] W/O ABNORMAL FIND K5900 CONSTIPATIO 05-16-2017 [facility] [place] RADIOLOGY UNSPECIFIED R109 UNSPECIFIED 05-16-2017 [facility] R197 DIARRHEA 05-16-2017 [facility] [place] UNSPECIFIED RADIOLOGY R8290 UNSPECIFIED 05-16-2017 [facility] ABNORMAL ELIZ[facility]ETH FINDINGS IN HOLDINGS URINE O0575CE TOX EFF 02-08-2017 [facility] ACC INITIAL ENC I42187 MIGRAINE 02-07-2017 [facility] UNS NOT EMERGENCY INTRACT W/O PHYS PSC STATUS MIGRAINOSUS E15901 UNSPECIFIED 02-07-2017 [facility] ASTHMA HEALTH UNCOMPLICAT [place] ED 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 M4606 SPINAL 02-07-2017 NONA ENTHESOPATH Y LUMBAR REGION M545 LOW BACK 02-07-2017 NONA PAIN O79273 MUSCLE 02-07-2017 NONA SPASM OF BACK M9903 SEGMENTAL & 02-07-2017 NONA SOMATIC DYSFUNCTION OF LUMBAR REGION M9904 SEGMENTAL & 02-07-2017 NONA SOMATIC DYSFUNCTION OF SACRAL REGION R1110 VOMITING 02-07-2017 BRUNO FAYETTE UNSPECIFIED URBAN COGOVT R410 DISORIENTAT 02-07-2017 BRUNO FAYETTE ION URBAN UNSPECIFIED COGOVT R4182 ALTERED 02-07-2017 [facility] STATUS ASSOC UNSPECIFIED R51 HEADACHE 02-07-2017 BRUNO FAYETTE URBAN COGOVT R569 UNSPECIFIED 02-07-2017 [facility] CONVULSIONS [place] [id number] STRAIN 02-07-2017 NONA MUSCLE FASCIA & TENDON LOW BACK INITIAL Z833 FAMILY 02-07-2017 [facility] HISTORY OF HEALTH DIABETES [place] MELLITUS Z880 ALLERGY 02-07-2017 [facility] STATUS TO HEALTH PENICILLIN [place] Z888 ALLERGY 02-07-2017 [facility] STATUS OT HEALTH RX MEDS & [place] BIOLOG SUBSTANC STS J101 FLU D/T OTH 01-17-2017 [facility] ID FLU CLINIC VIRUS OTH RESP MANIFESTATI ONS R05 COUGH 01-17-2017 [facility] J209 ACUTE 12-24-2016 [facility]ONCHITIS [facility] UNSPECIFIED INC J40 BRONCHITIS 12-24-2016 [facility] PHYS[facility]IANS, SPECIFIED PLLC ACUTE OR CHRONIC Z7689 PERSONS 12-15-2016 [facility] ENCOUNTER [facility] SR[facility] TH DEPT OTH KIERA CIRCUMSTANC ES J020 STREPTOCOCC 12-10-2016 [facility] AL CLINIC PHARYNGITIS E04853 PAIN IN 10-23-2016 [facility] RIGHT N EMERGENCY SHOULDER PHYS B20564 PAIN IN 10-23-2016 [facility] [place] RIGHT ELBOW RADIOLOGY S68669 PAIN IN 10-23-2016 [facility] [place] RIGHT KNEE RADIOLOGY R0781 PLEURODYNIA 10-23-2016 [facility] N EMERGENCY PHYS R0789 OTHER CHEST 10-23-2016 [facility] [place] PAIN RADIOLOGY I61954P ABRASION OF 10-23-2016 [facility] RIGHT N EMERGENCY ELBOW PHYS INITIAL ENCOUNTER E81499K ABRASION 10-23-2016 [facility] RIGHT KNEE N EMERGENCY INITIAL PHYS ENCOUNTER U41650 OTHER LONG 10-23-2016 [place] TERM COMMUNITY CURRENT [...] AGE R040 EPISTAXIS 06-07-2016 [facility] [place] RADIOLOGY [id number] CONTUSION 06-07-2016 [facility] NOSE N EMERGENCY [...] PS WITHOUT ESOPHAGITIS A0839 OTHER VIRAL 01-15-2016 [facility] ENTERITIS [facility] URGENT TREAT J4530 MILD 01-15-2016 [facility] ASTHMA URGENT UNCOMPLICAT TREAT ED 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 URGENT TREAT R102 PELVIC AND 10-17-2015 VORKPOR EMIGDIO PERINEAL PAIN D529 FOLATE 09-10-2015 [facility] DEFICIENCY DISTRICT ANEMIA HLTH DEPT UNSPECIFIED KIERA Z23 ENCOUNTER 09-10-2015 [facility] FOR DISTRICT IMMUNIZATIO HLTH DEPT N KIERA R1310 DYSPHAGIA 09-05-2015 EAR, NOSE UNSPECIFIED AND THROAT SPECIAL R1313 DYSPHAGIA 09-01-2015 [facility] PHASE URGENT TREAT 5589 OTH&UNSPEC 06-14-2015 [facility] NONINFECTIO US GASTROENTER ITIS&COLITI S 13953 NAUSEA WITH 06-14-2015 [facility] [place] VOMITING RADIOLOGY 85422 ABDOMINAL 06-14-2015 RANI BEAL PAIN RIGHT LOWER QUADRANT V2549 SURVEILLANC 06-10-2015 [facility] E OTH PREV DISTRICT PRSC [facility] DEPT CONTRACEPT KIERA METHOD V2689 OTHER 06-10-2015 [facility] SPECIFIED DISTRICT PROCREATIVE [facility] DEPT MANAGEMENT KIERA 63585 ASTHMA, 05-08-2015 [facility] UNSPECIFIED [facility] , INC UNSPECIFIED STATUS 53179 UNSPECIFIED 05-08-2015 [facility] SITE OF PHYSICIANS, ANKLE PLLC SPRAIN AND STRAIN 2299 BENIGN 05-06-2015 [place] NEOPLASM OF [facility] HOSPITAL UNSPECIFIED SITE 5990 URINARY 05-06-2015 SWINE[facility] PAT TRACT INFECTION SITE NOT SPECIFIED 6202 OTHER AND 05-06-2015 [facility] PAT UNSPECIFIED OVARIAN CYST 53708 ABDOMINAL 05-06-2015 [place] PAIN, [facility] UNSPECIFIED HOSPITAL SITE 7919 OTHER 05-06-2015 [place] NONSPECIFIC COMMUNITY FINDING HOSPITAL EXAMINATION OF URINE V140 PERSONAL 05-06-2015 [place] HISTORY OF COMMUNITY ALLERGY TO HOSPITAL PENICILLIN V1582 PERS HX 05-06-2015 [place] TOBACCO USE COMMUNITY PRESENTING HOSPITAL HAZARDS HEALTH 55340 PAIN IN 02-22-2015 [facility] [place] JOINT RADIOLOGY PELVIC REGION AND THIGH 88970 CHEST PAIN 02-22-2015 [facility] UNSPECIFIED [facility] AMBULANCE SE 8470 NECK SPRAIN 02-22-2015 [facility] EDW AND STRAIN 8472 LUMBAR 02-22-2015 [facility] EDW SPRAIN AND STRAIN 9221 CONTUSION 02-22-2015 [facility] EDW OF CHEST WALL 9222 CONTUSION 02-22-2015 [facility] EDW OF ABDOMINAL WALL 99184 INJURY OF 02-22-2015 [facility] [place] FACE AND RADIOLOGY NECK OTHER AND UNSPECIFIED 44531 OTHER 02-22-2015 [facility] [place] INJURY OF RADIOLOGY OTHER SITES OF TRUNK 3688 OTHER 02-03-2015 [facility] SPECIFIED [facility]ICAL VISUAL IMAGING ASS DISTURBANCE S 7231 CERVICALGIA 02-03-2015 [facility] 6259 UNSPEC 12-19-2014 [facility] [place] SYMPTOM RADIOLOGY ASSOC W/FEMALE GENITAL ORGANS 08938 ABDOMINAL 12-19-2014 [place] TENDERNESS COMMUNITY RIGHT LOWER HOSPITAL QUADRANT V1329 PERSONAL HX 12-19-2014 [facility]&OBST ETRIC D/O 7804 DIZZINESS 12-11-2014 [facility] AND CLINIC GIDDINESS 96748 ACUTE 12-03-2014 IN[facility] SEROUS CHAD OTITIS MEDIA 4770 ALLERGIC 12-03-2014 IN[facility] RHINITIS CHAD DUE TO POLLEN 4778 ALLERGIC 12-03-2014 IN[facility] RHINITIS CHAD DUE TO OTHER ALLERGEN 81174 EXTRINSIC 12-03-2014 INGE ASTHMA, CHAD WITH EXACERBATIO N 0088 INTESTINAL 11-01-2014 RACHEL OLIVIER INFECTION DUE TO OTHER ORGANISM NEC 09480 DIARRHEA 11-01-2014 RACHEL SOY 5362 PERSISTENT 10-31-2014 KABA SATYA VOMITING 80346 SHORTNESS 10-27-2014 [place] OF [facility] 87084 ASTHMA 10-24-2014 [facility] UNSPECIFIED CLINIC WITH EXACERBATIO N 37146 UNSPECIFIED 10-23-2014 [facility] SLEEP PRIMARY DISTURBANCE CARE CLI 63867 INSOMNIA 10-23-2014 [facility]ULT UNSPECIFIED PRIMARY CARE CLI 3829 UNSPECIFIED 10-15-2014 [facility] OTITIS [facility] MEDIA HOLDINGS 462 ACUTE 10-15-2014 [facility] PHARYNGITIS [facility] HOLDINGS 19534 GENERALIZED 10-15-2014 [facility] PAIN [facility]IZ[facility] HOLDINGS 0549 HERPES 10-10-2014 [facility] WITHOUT [place] [facility] MENTION OF COMPLICATIO N 0340 STREPTOCOCC 10-09-2014 [facility] AL SORE CLINIC THROAT 08349 UNSPECIFIED 09-30-2014 [facility] INFECTIVE CLINIC OTITIS EXTERNA 7862 COUGH 09-30-2014 [facility] CL[facility] 4779 ALLERGIC 08-22-2014 [facility] RHINITIS PRIMARY CAUSE CARE CLI UNSPECIFIED 7245 UNSPECIFIED 08-22-2014 [facility] BACKACHE PRIMARY CARE CLI 7177 CHONDROMALA 08-14-2014 [facility] S SPORT 48547 PAIN IN 08-10-2014 [facility] JOINT, [place] LEG AUSTEN 07868 PAIN IN 07-30-2014 [place] JOINT, MEDICAL SHOULDER IMAGING ASS REGION 8409 SPRAIN&STRA 07-30-2014 FLAVIO JANA IN UNSPEC SITE SHOULDER&UP PER ARM E9288 OTHER 07-30-2014 FLA[facility] JANA ACCIDENT 50355 SPRAIN AND 07-12-2014 [facility] STRAIN OF DELTOID OF ANKLE 69471 UNSPECIFIED 06-11-2014 LUIS FERNANDO LES TINNITUS 16820 SUBJECTIVE 06-11-2014 [facility] TINNITUS PHYSICIAN PRACTICE L 3899 UNSPECIFIED 06-11-2014 [facility] HEARING PHYSICIAN LOSS PRACTICE L 40005 UNSPECIFIED 06-06-2014 [facility] VAGINITIS CLINIC AND VULVOVAGINI TIS 7821 RASH AND 06-06-2014 [facility] OTHER CLINIC NONSPECIFIC SKIN ERUPTION 33208 UNSPECIFIED 05-31-2014 [facility] OTALGIA CLINIC 82701 PAIN IN 05-31-2014 [facility] JOINT, CLINIC ANKLE AND FOOT 99881 OTHER 02-25-2014 INGE CHRONIC CHAD ALLERGIC CONJUNCTIVI TIS 98192 EXTRINSIC 02-25-2014 INGE ASTHMA, CHAD UNSPECIFIED 7840 HEADACHE 02-13-2014 [facility] [place] 4659 ACUTE URIS 02-01-2014 ASTRID JONES OF UNSPECIFIED SITE V202 ROUTINE 01-14-2014 [facility] INFANT OR [place] CHILD HEALTH CHECK 30343 WHEEZING 12-20-2013 [facility] ANIBAL V0481 NEED 12-06-2013 [facility] PROPHYLACT [place] C VACCINATION &INOCULATIO N FLU 62769 UNSPECIFIED 11-08-2013 [facility] ACUTE [place] NONSUPPURAT MORENITA OTITIS MEDIA 4772 ALLERGIC 11-05-2013 [facility] RHINITIS CHAD DUE TO ANIMAL HAIR AND DANDER V727 DIAGNOSTIC 11-05-2013 [facility] SKIN AND CHAD SENSITIZATI ON TESTS 7295 PAIN IN 10-30-2013 [facility], SOFT CIRCULAR [facility] TISSUES OF [place] LIMB HOS 7823 EDEMA 10-30-2013 [facility], CIRCULAR [facility] [place] [facility]OS 7881 DYSURIA 10-30-2013 [facility] [place] 9599 INJURY 10-30-2013 HAGENSCHNEI OTHER AND CARLOS LASHON UNSPECIFIED UNSPECIFIED SITE 34210 ACUT 10-11-2013 INGE SUPPRATV CHAD OTITIS MEDIA W/O SPONT RUP EARDRUM V720 EXAMINATION 10-11-2013 DREW OF EYES GRE AND VISION 86400 DISORDERS 10-09-2013 ASTRID NAN OF SOFT TISSUE UNSPECIFIED 4739 UNSPECIFIED 09-20-2013 [facility] SINUSITIS CHAD 18222 EXTRINSIC 09-20-2013 IN[facility] ASTHMA WITH CHAD STATUS ASTHMATICUS 94311 OBESITY, 09-07-2013 [facility] UNSPECIFIED [facility] 83911 CHRONIC 09-07-2013 JR TANIA CHOLECYSTIT EDW IS 5758 OTHER 09-07-2013 SIENNA ANT SPECIFIED DISORDER OF GALLBLADDER 5759 UNSPECIFIED 09-04-2013 [place] DISORDER [facility] GALLBLADDER V7284 UNSPECIFIED 09-04-2013 [facility] PRE-OPERATI HOSPITAL VE EXAMINATION 34766 ABDOMINAL 08-08-2013 RUSSEL RHO PAIN RIGHT UPPER QUADRANT 32949 VOMITING 07-28-2013 [facility], ALONE CIRCULAR [facility] [place] [facility] 486 PNEUMONIA, 06-20-2013 HAGENSCHNEI ORGANISM CARLOS LASHON UNSPECIFIED 4660 ACUTE 06-18-2013 PIERCE MARIANA BRONCHITIS 2150 OTH HANK 04-10-2013 ADLER TONYA NEOPLSM CNCTV&OTH SFT TISS HEAD FCE&NCK 19105 NEOPLASMS 04-10-2013 HOWARD JANA UNSPECIFIED NATURE OTH SPECIFIED SITES 60281 ESOPHAGEAL 04-10-2013 [facility] 7856 ENLARGEMENT 04-10-2013 [facility] NODES V7263 PRE-PROCEDU 04-02-2013 [facility] INC, RAL CIRCULAR [facility] LABORATORY [place] EXAMINATION HOS 2893 LYMPHADENIT 03-26-2013 VITOR TONYA IS UNSPECIFIED EXCEPT MESENTERIC 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 7822 LOCALIZED 03-13-2013 [facility]IN[facility] SWELLING MASS OR LUMP 7831 ABNORMAL 02-28-2013 [facility] INC, WEIGHT GAIN CIRCULAR [facility] [place] [facility] 7842 SWELLING 02-28-2013 [facility] INC, MASS OR [facility] LUMP IN [place] HEAD AND HOS NECK V770 SCREENING 02-28-2013 [facility] INC, FOR THYROID CIRCULAR [facility] DISORDER [facility] HOS V771 SCREENING 02-28-2013 [facility] INC, FOR CIRCULAR [facility] DIABETES [facility] MELLITUS HOS 6119 UNSPECIFIED 12-07-2012 MARYANN ALICIA BREAST DISORDER 6262 EXCESSIVE 12-07-2012 MARYANN ALICIA OR FREQUENT MENSTRUATIO N 52796 OTHER 12-07-2012 MARYANN ALICIA MALAISE AND FATIGUE 67377 HEAD 11-08-2012 [facility] INJURY, AMBULETT & UNSPECIFIED AMBULANC 7291 UNSPECIFIED 11-01-2012 AHMED ADN MYALGIA AND MYOSITIS 06130 ABDOMINAL 11-01-2012 AHMED ADN PAIN OTHER SPECIFIED SITE 35638 EOSINOPHILI 09-19-2012 FL[facility] C MANUEL ESOPHAGITIS 2883 EOSINOPHILI 08-28-2012 [facility] HOS[facility] 5368 DYSPEPSIA&O 08-28-2012 [facility] DISORDERS FUNCTION STOMACH 5379 UNSPECIFIED 08-28-2012 [facility]OS[facility] AND DUODENUM 5699 UNSPECIFIED 08-28-2012 [facility] HOSPI INTESTINE 00632 NAUSEA 08-28-2012 [facility] 34382 ABDOMINAL 08-28-2012 [facility], LEFT SERVICES LOWER QUADRANT 47436 ABDOMINAL 08-28-2012 [facility] [facility], HOSPITAL GENERALIZED V643 PROCEDURE 08-27-2012 [facility], NOT CARRIED CIRCULAR [facility] OUT FOR [place] [facility] OTHER HOS REASONS 08797 SWELLING OF 08-25-2012 [facility], LIMB CIRCULAR [facility] [place] [facility]ER [facility]OS E8809 ACCIDENTAL 08-25-[facility] OR RADIOLOGY FROM OTHER ASSOCIAT STAIRS OR STEPS E8889 UNSPECIFIED 08-25-2012 AHMED ADN FALL 4610 ACUTE 08-01-2012 [facility] 09634 OPEN WOUND 03-07-2012 [place] [facility] LIP WITHOUT HOSPITAL MENTION COMPLICATIO N E8490 PLACE OF 03-07-2012 [place] [facility] OCCURRENCE, HOSPITAL HOME E8888 OTHER FALL 03-07-2012 [facility] 6200 FOLLICULAR 12-27-2011 PER JR CYST OF [place] OVARY 3814 NONSUPPRATV 12-10-2011 JEFE DARRION OTITIS MEDIA NOT SPEC ACUT/CHRON V7231 ROUTINE 11-29-2011 PATHOLOGY & GYNECOLOGIC CYTOLOGY AL LAB EXAMINATION 4619 ACUTE 11-25-2011 JEFE DARRION SINUSITIS, UNSPECIFIED 82199 URINARY 11-25-2011 MAYBERRY DARRION FREQUENCY 6260 ABSENCE OF 10-13-2011 [facility] MENSTRUATIO AMERIC N HOLDINGS 46651 PAIN IN 10-01-2011 [place] JOINT, RADIOLOGY UPPER ARM ASSOCIAT 75692 CONTUSION 10-01-2011 [place] [facility] OF [facility] HOSPITAL 9593 INJURY 10-01-2011 [facility] OTHER&UNSPE RADIOLOGY CIFIED ASSOCIAT ELBOW FOREARM&WRI ST 6252 MITTELSCHME 09-19-2011 [facility] RZ OSI 04100 PAIN IN 06-16-2011 [place] JOINT, HAND RADIOLOGY ASSOCIAT 7937 NONSPC ABN 06-16-2011 [facility] FINDNG RAD RADIOLOGY & OTH EXM ASSOCIAT MUSCULSKELT L SYS 53011 CLOS 06-16-2011 [place] [facility] FRACTURE HOSPITAL MID/PROXIMA L PHALANX/PHA LANG HAND 55069 SPRAIN AND 06-16-2011 [place] [facility] STRAIN OF HOSPITAL UNSPECIFIED SITE OF HAND 52840 CONTUSION 06-16-2011 [facility] 9594 INJURY 06-16-2011 [facility] OTHER AND RADIOLOGY UNSPECIFIED ASSOCIAT HAND EXCEPT FINGER E9270 OVEREXERTIO 06-16-2011 [facility] N FROM [facility]OSPITAL SUDDEN STRENUOUS MOVEMENT 6253 DYSMENORRHE 10-21-2010 [facility] A 4658 ACUTE URIS 10-13-2010 [facility] [place] OF OTHER MULTIPLE SITES 4871 INFLUENZA 10-13-2010 [facility] WITH OTHER HOSPITAL RESPIRATORY MANIFESTATI ONS 82374 OTHER 10-13-2010 [facility] E8496 PLACE OF 04-13-2010 [facility] PUBLIC BUILDING E9175 STRIKE 04-13-2010 [facility] K ACC OTH OBJ SPORTS W/FALL 2564 POLYCYSTIC 02-05-2010 [facility] 5950 ACUTE 02-03-2010 [facility] 6268 OTH D/O 12-10-2009 [facility] M[facility] N&OTH ABN CLINIC BLEED FE GNT TRACT 32048 UNSPECIFIED 06-24-2009 [facility] VISION ANDLEARNING DISORDER 56525 NYSTAGMUS 06-24-2009 [facility] W/DEFIC VISION SMOOTH ANDLEARNING PURSUIT MOVEMENTS 9063 LATE EFFECT 05-26-2009 [facility] OF [facility] CONTUSION 92632 CONTUSION 05-25-2009 [facility] OF [facility] E8499 UNSPECIFIED 05-25-[address] [facility] OCCURRENCE E8859 FALL FROM 05-25-2009 [facility] OTHER HOSPITAL SLIPPING TRIPPING OR STUMBLING 75312 VISUAL 04-01-2009 [facility] 99664 MIGRAINE 04-17-2008 [facility] W/O [facility] W/O INTRACT W/O STAT MIGRNOSUS 37886 EFFUSION OF 03-30-2008 [facility] PSC 7812 ABNORMALITY 03-30-2008 [facility] OF [facility] 845 SPRAINS AND 03-30-2008 [facility] STRAINS OF HOSPITAL ANKLE AND FOOT 9160 HIP THI 03-30-2008 [facility] ABRASION/FR ICION BURN W/O INF 9170 ABRASION/FR 03-30-2008 [facility] ICTION [facility]URN [facility]PITAL FOOT&TOE W/O MENTION INF 25335 CONTUSION 03-30-2008 [facility] OF [facility] V642 SURG/OTH 03-30-2008 [facility] PROC NOT HOSPITAL CARRIED OUT BECAUSE PTS DECN 460 ACUTE 12-22-2007 [facility] INTERNAL MED 4780 HYPERTROPHY 12-18-2007 [facility], OF NASAL CHAD B TURBINATES 9953 ALLERGY 12-08-2007 [facility] UNSPECIFIED [facility] NOT INTERNAL ELSEWHERE MED CLASSIFIED 5184 UNSPECIFIED 02-22-2007 [facility] EDEMA OF PEDIA LUNG 5839 NEPHRITIS&N 02-22-2007 [facility] NOT AC/CHRN PEDIA W/UNS PATHAL LES Medications [...] 34 7- 1- 00 01 [facility] [place] 59 20 20 04 [place] ED 31 [...] 06 07 30 30 00 KE Ac NM 37 -2 -2 .0 00 NT ti [...] 80 6- 8- 00 01 UC ve NM 01 20 20 03 [place] AM 00 [...] 80 2- 6- 00 01 UC ve NM 01 20 20 03 [place] AM 00 17 17 07 5 85 CV HB S R PH 20 AR MA MG CY TA LL BL C, ET DB A CV S PH AR MA CY #3 01 6 NM 00 05 06 60 30 00 KE [...] 80 0- 8- 00 01 UC ve NM 01 20 20 01 [place] AM 00 [...] 03 04 28 14 00 KE Ac NM 16 -1 -0 .0 00 NT ti [...] 01 KY ZA 11 17 17 27 NM 0 45 CV IN S E PH [...] 10 7- 4- 00 01 UC ve SC 47 20 20 00 [place] 01 17 [...] PH AR MA CY #3 01 6 NM 00 02 03 10 5 00 KE [...] 1% 46 11 11 FA TH 0 SC AN SH LY L AM PO DR O UG MA 51 04 04 0 59 1 SO 37 WH Ac LA 67 -1 -1 .0 PE 09 EE ti TH 25 3- 3- 00 RS 00 LE ve IO 27 20 20 R N 70 11 11 FA KR 0. 4 SC IS 5% LY TI E LO DR [...] 0 30 15 WA 70 WH Ac NM 74 -1 -1 .0 L- 55 EE [...] JR IN 26 10 10 FA 7 SC CH 1% LY ES TE LO DR R TI UG R ON PE 00 11 11 1 59 2 SO 35 YO Ac RM 47 -0 -0 .0 PE 68 UN ti ET 25 8- 8- 00 RS 56 G ve HR 24 20 20 JR IN 26 10 10 FA 7 SC CH 1% LY ES TE LO DR [...] NA 00 09 09 FA TA 1 SC LI LY E E DR UG CI 00 03 04 00 7. 7 SO 30 JU Ac NM 06 -3 -0 50 PE 97 DY ti OD 58 0- 9- 0 RS 96 ve EX 53 20 20 NA 30 09 09 FA TA OT 2 SC LI IC LY E E MARIE SP UG EN SI ON NM 60 03 03 00 12 5 SO 30 HU Ac OM 43 -1 -2 0. PE 86 NT ti ET 20 7- 6- 00 RS 30 ER ve NAILS 60 20 20 0 ZI 41 09 09 FA NA NE 6 SC NC -D LY Y M C SY DR TRAN UG P TA 00 03 03 00 10 5 SO 30 HU Ac SC 00 -1 -2 .0 PE 86 NT ti FL 40 7- 6- 00 RS 44 ER ve U 80 20 20 75 08 09 09 FA NA 5 SC NC MG LY Y C CA DR PS UG UL E 60 01 01 00 12 3 SO 30 HU Ac 25 -1 -3 0. PE 32 NT ti 80 3- 0- 00 RS 84 ER ve 23 20 20 0 91 09 09 FA NA 6 SC NC LY Y C DR UG NM 50 01 01 00 60 30 SO 30 HU Ac OP 11 -1 -3 .0 PE 32 NT ti RA 10 3- 0- 00 RS 85 ER ve NO 46 20 20 LO 70 09 09 FA NA L 1 SC NC 10 LY Y C MG DR UG TA BL ET AB 59 01 01 00 45 30 SO 30 HU Ac IL 14 -1 -3 .0 PE 32 NT ti IF 80 3- 0- 00 RS 87 ER ve Y 00 20 20 5 71 09 09 FA NA MG 3 SC NC LY Y TA C BL ET UG 17 06 06 00 15 15 SO 28 No Ac 31 -0 -1 .0 PE 58 t ti 45 5- 2- 00 RS 89 Av ve 85 20 20 ai 10 08 08 FA la 2 SC bl LY e DR ROGERS AB 59 06 06 00 15 30 SO 28 No Ac IL 14 -0 -1 .0 PE 58 t ti IF 80 5- 2- 00 RS 88 Av ve Y 00 20 20 ai 5 71 08 08 FA la MG 3 SC bl LY e TA BL ET UG 00 01 03 00 30 30 SO 27 No Ac 09 -2 -2 .0 PE 41 t ti 51 8- 6- 00 RS 15 Av ve 29 20 20 ai 00 08 08 FA la 6 SC bl LY e DR UG NA 00 01 03 00 17 30 SO 27 No Ac SO 08 -2 -2 .0 PE 41 t ti NE 51 8- 6- 00 RS 12 Av ve X 28 20 20 ai 50 80 08 08 FA la 1 SC bl MC LY e G NA DR TUCKER UG L SP RA Y 63 01 03 00 20 10 SO 27 No Ac 30 -2 -2 .0 PE 41 t ti 40 8- 6- 00 RS 14 Av ve 75 20 20 ai 12 08 08 FA la 0 SC bl LY e UG 17 03 00 30 30 SO 27 No Ac 31 -2 -2 .0 PE 34 t ti 45 1- 5- 00 RS 51 Av ve 85 20 20 ai 10 08 08 FA la 2 SC bl LY e DR ROGERS AB 59 01 03 00 45 30 SO 27 No Ac IL 14 -2 -2 .0 PE 34 t ti IF 80 1- 5- 00 RS 53 Av ve Y 00 20 20 ai 5 71 08 08 FA la MG 3 SC bl LY e TA BL DR ET UG NM 50 01 03 00 60 30 SO 27 No Ac OP 11 -1 -2 .0 PE 33 t ti RA 10 8- 5- 00 RS 47 Av ve NO 46 20 20 ai LO 70 08 08 FA la L 1 SC bl [address] UG TA BL ET Immunization Name Date Rout CVX Reac Dose Comm Prov Is Faci e tion ent ider Refu lity Give sed n IIV3 - 141 HAMI No HAMI 6-20 [place] VACC 14 [place] INE SPLI T VIRU [place] S 0.5 ML DOSA GE IM USE Procedures Procedure DOS Code Location Performer Comment IAADIADOO 66673 VELIA BARNETT [address] [place] [address] VOODOO VOODOO ABDOMINAL 7 [facility] REAL [facility] TIME W/IMAGE DOCUMENTA TION IADNA 79308 [facility] CHLAM[facility] 7 [facility] TRACHOMAT KIERA KIERA IS AMPLIFIED PROBE TQ IADNA 35414 [facility] NEISSERIA 7 DEPT [facility] GONORRHOE KIERA KIERA AE AMPLIFIED PROBE TQ INJECTION J1050 [facility] 7 [facility] MEDROXYPR [facility] OGESTERON KIERA KIERA E ACETATE 1 MG URINE 07241 [facility] 7 [facility] TEST [facility] VISUAL KIERA KIERA COLOR CMPRSN METHS GENERAL [address] [place] [address] HEALTH HEALTH PANEL [facility] HEMOGLOBI 36324 VOODOO VOODOO N 7 [facility] GLYCOSYLA [facility] DOROTHY A1C LIPID 09897 [facility], ELIZABETHTONTIST [address] HEALTH [facility] CYANOCOBA 39695 VOODOO VOODOO ALFREDO 7 HEALTH HEALTH VITAMIN [facility] B-12 RADEX 46634 [facility] [place] SCALF ABDOMEN 1 7 RADIOLOGY ANTEROPOS TERIOR VIEW CULTURE 81936 [facility] BACTERIAL 7 ELIZABETH ELIZABETH HOLDINGS HOLDINGS QUANTTATI VE COLONY COUNT URINE INJECTION J1050 [facility] 7 DISTRICT DISTRICT MEDROXYPR HLTH DEPT HLTH DEPT OGESTERON KIERA KIERA E ACETATE 1 MG CHIROPRAC 62412 NONA NONA TIC 7 [place] SPINAL 1-2 REGIONS INITIAL 45341 [facility] 7 HEALTH ON MEDICAL CARE/DAY GROUP 70 MINUTES HOSPITAL G0378 [facility] 7 [facility] ON [facility] SERVICE PER HOUR APPL 65676 NONA NONA MODALITY 7 1/> AREAS ELEC STIMJ UNATTENDE D APPL 48883 NONA NONA MODALITY 7 1/> AREAS ULTRASOUN D [place] [address] [place] [address] [facility]/BRAI 7 RADIOLOGY N W/O ASSOC CONTRAST MATERIAL AMB A0427 [facility] SERVICE 7 FAYETTE FAYET[facility] ALS [facility]AN URBAN EMERGENCY COGOVT COGOVT TRANSPORT LEVEL 1 GROUND A0425 [facility] MILEAGE 7 FAYETTE FAYETTE PER URBAN URBAN STATUTE COGOVT COGOVT MILE APPL 42490 NONA NONA MODALITY 7 1/> AREAS ULTRASOUN D EA 15 MIN APPL 29637 NONA NONA MODALITY 7 1/> AREAS ELEC STIMJ UNATTENDE D CHIROPRAC 36631 NONA NONA TIC 7 MANIP[place]AT [place] SPINAL 1-2 REGIONS CHIROPRAC 20961 NONA NONA TIC 7 MANIP[place]AT [place] SPINAL 1-2 REGIONS APPL 94781 NONA NONA MODALITY 7 1/> AREAS ULTRASOUN D EA 15 MIN APPL 78414 NONA NONA MODALITY 7 1/> AREAS ELEC STIMJ UNATTENDE D IAADIADOO 60132 VELIA BARNETT 7 [place] [address] MIMI LE STREPTOCO 7 [facility] CCUS INC INC GROUP A RADIOLOGI 87382 MIMI MIMI C EXAM 7 [facility] CHEST 2 INC INC VIEWS FRONTAL&L ATERAL CUL BACT 72077 MIMI LE XCPT 7 [facility] URINE INC INC BLOOD/STO OL AEROBIC ISOL IAADI 05294 MIMI LE INFLUENZA 7 [facility] B VIRUS INC INC IAADI 08973 MIMI LE INFFLUENZ 7 [facility] A A VIRUS INC INC IADNA 01633 [facility]IA 7 [facility] TRACH[facility]AT KIERA KIERA IS AMPLIFIED PROBE TQ ANTIBODY 14466 [facility] TREPONEMA 7 [facility] KIERA KIERA IADNA 34564 [facility] NEISSERIA 7 [facility] GONORRHOE KIERA KIERA AE AMPLIFIED PROBE TQ INJECTION J1050 [facility] 7 [facility] OGESTERON KIERA KIERA E ACETATE 1 MG IAADIADOO 95443 VELIA LEZAMA 7 CLINIC STREPTOCO CCUS GROUP A RADIOLOGI 20032 [place] C 6 RADIOLOGY RADIOLOGY EXAMINATI ON KNEE 3 VIEWS RADEX 82853 [facility] RIBS 6 DARRIN PAT UNILATERA EMERGENCY L 2 VIEWS PHYS RADEX 28806 [facility] [place] RADHA ELBOW 6 RADIOLOGY COMPLETE MINIMUM 3 VIEWS INJECTION J1050 [facility] 6 [facility] OGESTERON KIERA KIERA E ACETATE 1 MG CONTRACEP A4267 [facility] TIVE 6 [facility] DE[facility] CONDOM KIERA KIERA MALE EACH INJECTION J1050 [facility] 6 [facility] OGESTERON KIERA KIERA E ACETATE 1 MG THERAPEUT 94032 VELIA BARNETT IC 6 [facility] PROPHYLAC TIC/DX INJECTION SUBQ/IM INJECTION J1100 VELIA BARNETT 6 [facility] DEXAMETHO SONE SODIUM PHOSPHATE 1 MG INJ J2930 KASI VILLASEÑOR METHYLPRD 6 [place] SODIUM SUCCNAT TO 125 MG THERAPEUT 03900 KASI VILLASEÑOR IC [address] [place] [address] INJECTION [facility] HOSPITAL IV PUSH EACH NEW DRUG THER 05693 KASI VILLASEÑOR PROPH/DX [address] [place] [address] HOSPITAL PUSH SINGLE/1S T SBST/DRUG CONTRACEP A4267 [facility] TIVE 6 [facility] SUPPLY [facility] CONDOM KIERA KIERA MALE EACH IADNA 14725 [facility] CHLAMYDIA 6 DEPT [facility] DEPT TRACHOMAT KIERA KIERA IS AMPLIFIED PROBE TQ IADNA 86174 [facility] NEISSERIA [address] [place] [address] DEPT [facility] DEPT GONORRHOE KIERA KIERA AE AMPLIFIED PROBE TQ INJECTION J1885 [facility] [address] [place] [address] [facility] TROM[facility] INE PER 15 MG RADEX 52262 [facility] [place] SCALF FERMÍN NASAL 6 RADIOLOGY BONES COMPLETE MINIMUM 3 VIEWS THERAPEUT 90072 KASI VILLASEÑOR IC [address] [place] [address] [facility] TIC/DX INJECTION SUBQ/IM BLOOD 65253 KASI VILLASEÑOR COUNT [address] [place] [address] AUTO&AUTO DIFRNTL WBC COLLECTIO 44511 KASI VILLASEÑOR N VENOUS [address] [place] [address] VENIPUNCT URE COMPREHEN 82163 KASI VILLASEÑOR SIVE [address] [place] [address] [place] [address] LAB [facility] FOLIC 6 ELIZABETH ELIZABETH ACID HOLDINGS HOLDINGS SERUM BASIC 54908 [facility] METABOLIC 6 ELIZABETH ELIZABETH PANEL HOLDINGS HOLDINGS CALCIUM TOTAL IAADIADOO 434[address] EVLIA VELIA [address] [place] [address] STREPTOCO CCUS GROUP A CYANOCOBA 95361 LAB [facility] ALFREDO 6 ELIZABETH ELIZABETH VITAMIN HOLDINGS HOLDINGS B-12 ANES 20249 MATILDE JEAN UPPER GI 6 ANESTHESI ENDOSCOPY A GROUP PROXIMAL PS TO DUODENUM INJECTION J1050 [facility] [address] [place] [address] MEDROXYPR HLTH DEPT HLTH DEPT OGESTERON KIERA KIERA E ACETATE 1 MG GENERAL 99545 LAB [facility] HEALTH 6 ELIZABETH ELIZABETH [place] [address] LAB F[facility] FOLIC 6 ELIZABETH ELIZABETH [place] [address] LAB [facility] FREE 6 ELIZABETH ELIZABETH [place]RO[place] [address] LAB FANTA LAB [facility] AMYLASE 6 ELIZABETH ELIZABETH HOLDINGS HOLDINGS URINE 06108 VELIA VELIA 6 CLINIC CLINIC TEST VISUAL COLOR CMPRSN METHS CYANOCOBA 80812 LAB [facility] ALFREDO 6 ELIZABETH ELIZABETH VITAMIN HOLDINGS HOLDINGS B-12 [place] [address] LAB FANTA [facility] LIPASE 6 ELIZABETH ELIZABETH HOLDINGS HOLDINGS HPYLORI 92758 LAB [facility] BREATH 6 ELIZABETH ELIZABETH ANAL HOLDINGS HOLDINGS UREASE ACT NON-RADAC T ISTOPE IAADIADOO 12045 HATTIE RESENDIZ [address] [place] [address] STREPTOCO URGENT CCUS TREAT GROUP A CONTRACEP A4267 [facility] T[facility] 5 [facility] SUPPLY [facility] DE[facility] CONDOM KIERA KIERA MALE EACH INJECTION J1050 [facility] [address] [place] [address] DEPT [facility] DEPT OGESTERON KIERA KIERA E ACETATE 1 MG LARYNGOSC 58499 EAR, NOSE SHASHY OPY 5 AND MIRANDA FLEXIBLE THROAT DIAGNOSTI SPECIAL C IAADIADOO [address] [place] [address] [facility] [place] CORBIN JAM ABDOMEN & 5 RADIOLOGY PELVIS W/O CONTRAST MATERIAL CONTRACEP A4267 [facility] TIVE 5 [facility] SUPPLY HLTH DEPT HLTH DEPT CONDOM KIERA KIERA MALE EACH INJECTION J1050 [facility] 5 [facility] MEDROXYPR HLTH DEPT HLTH DEPT OGESTERON KIERA KIERA E ACETATE 1 MG IADNA 84573 [facility] CHLAMYDIA 5 [facility] HLTH DEPT HLTH DEPT TRACHOMAT KIERA KIERA IS AMPLIFIED PROBE TQ URINE 38849 [facility] 5 [facility] TEST TH DEPT TH DEPT VISUAL KIERA KIERA COLOR CMPRSN METHS IADNA 36457 [facility] NEISSERIA 5 DEPT TH DEPT GONORRHOE KIERA KIERA AE AMPLIFIED PROBE TQ CRTCHS E0114 [facility]VANCED UNDARM 5 TECHNOLOG TECHNOLOG OTH THAN IES INC IES INC WOOD PAIR PAD TIP&HNDGR IP RADEX 73695 MIMI LE ANKLE 5 [facility] COMPLETE INC INC MINIMUM 3 VIEWS THER 02737 [facility] [facility] PROPH/DX 5 [facility] HOSPITAL PUSH SINGLE/1S T SBST/DRUG THERAPEUT 28735 [facility] [facility] IC 5 [facility] [place] [address] [place] CORBIN JAM ABDOMEN & 5 RADIOLOGY PELVIS W/O CONTRAST MATERIAL URNLS DIP 59337 [place] 5 [facility] HOSPITAL LET REAGENT AUTO MICROSCOP Y BLOOD 03716 [facility] [facility] COUNT 5 [facility] AUTO&AUTO DIFRNTL WBC CULTURE 60443 [place] BACTERIAL [address] [place] [address] QUANTTATI VE COLONY COUNT URINE COLLECTIO 58092 [facility] N VENOUS [address] [place] [address] [place] [address] [place] AMYLASE [address] [place] [address] INJECTION J1885 [facility] [address] [place] [address] KETOROLAC [facility] HOSPITAL TROMETHAM INE PER 15 MG INJECTION J2405 [place] [address] [place] [address] ONDANSETR [facility] HOSPITAL ON HCL PER 1 MG COMPREHEN 81790 [place] SIVE [address] [place] [address] METABOLIC [facility] PANEL URINE 45827 [facility] 5 [facility] VISUAL COLOR CMPRSN METHS RADIOLOGI 44127 [place] ROJAS C 5 RADIOLOGY JOSE EXAMINATI ON CHEST SINGLE VIEW FRONTAL AMB A0427 HATTIE GARCIA 5 [facility] ALS AMBULANCE AMBULANCE EMERGENCY SE SE TRANSPORT LEVEL 1 RADIOLOGI 08114 [place] ROJAS C 5 RADIOLOGY JOSE EXAMINATI ON PELVIS 1/[address] LUMBAR 49393 [facility] [place] CORBIN JAM SPINE 5 RADIOLOGY W/O CONTRAST MATERIAL CT ANGIO 44852 [facility] [place] ROJAS ABD&PLVIS 5 RADIOLOGY JOSE CNTRST MTRL W/WO CNTRST IMG GROUND A0425 HATTIE KUHN MILEAGE [address] [place] [address] PER AMBULANCE [place] [address] [facility] HAJIBRAHI ANGIOGRAP 5 RADIOLOGY M DHAVAL HY CHEST W/CONTRAS T/[place] [address] [facility] [place] CORBIN JAM CERVICAL 5 RADIOLOGY SPINE W/[place] [address] [facility] CERVICAL 5 MEDICAL NANI SPINE W/[place] [address] [place] [facility] HEAD/BRAI 5 MEDICAL NANI N W/[place] [address] [place] RUSSEL TRANSVAGI 5 [place] [address] [place] LIPASE [address] [place] [address] [place] [address] [facility] ABDOMEN & [address] [place] [address] W/O CONTRAST MATERIAL URNLS DIP 81863 [place] [address] [place] [address] [facility] HOSPITAL LET REAGENT AUTO MICROSCOP Y BLOOD 14460 [place] COUNT [address] [place] [address] AUTO&AUTO DIFRNTL WBC COMPREHEN 49189 [place] SIVE [address] [place] [address] PANEL URINE 31953 [place] [address] [place] [address] [place] [address] [place] AMYLASE [address] [place] [address] COLLECTIO 91813 [place] N VENOUS [address] [place] [address] VENIPUNCT URE NITRIC 50252 INGE INGE OXIDE 5 CHAD CHAD GAS DETERMINA TION BRNCDILAT 27196 INGE INGE RSPSE 5 CHAD BON[place]A SPMTRY PRE&POST- BRNCDILAT ADMN PRESSURIZ 87358 INGE INGE ED/NONPRE 5 CHAD BON[place] SSURIZED INHALATIO N TREATMENT PREPJ& 65151 INGE INGE ALLERGEN 4 CHAD [place] IMMUNOTHE RAPY 1/AUTOMATIC SPINNING LATHE SETTER ANTIGEN INITIAL 84382 RACHEL RAMOS OBSERVATI 4 SOY SOY ON CARE/DAY 50 MINUTES RADIOLOGI 78416 MIMI LE C EXAM 4 [facility] CHEST 2 INC INC VIEWS FRONTAL&L ATERAL BLOOD 61635 [facility] COUNT 4 ELIZABETH ELIZABETH COMPLETE HOLDINGS HOLDINGS AUTO&AUTO DIFRNTL WBC ALBUMIN 99200 [facility] SERUM 4 ELIZABETH ELIZABETH PLASMA/WH HOLDINGS HOLDINGS OLE BLOOD GLUCOSE 27936 LAB [facility] QUANTITAT 4 ELIZABETH ELIZABETH MORENITA BLOOD HOLDINGS HOLDINGS XCPT REAGENT STRIP PROTEIN 05219 LAB [facility] LAB [facility]ANT[facility] XCPT 4 ELIZABETH ELIZABETH REFRACTOM HOLDINGS HOLDINGS ETRY SERUM PLASMA/WH L BLD SODIUM 40647 LAB [facility] SERUM 4 ELIZABETH ELIZABETH PLASMA OR HOLDINGS HOLDINGS WHOLE BLOOD CHLORIDE 41283 [facility] BLD 4 ELIZABETH ELIZABETH HOLDINGS HOLDINGS CREATININ 00272 [facility] E BLOOD 4 [facility]ABETH [place] [address] LAB FANT[facility] LAB FANT[facility] PHOSPHATA 4 ELIZABETH ELIZABETH SE HOLDINGS HOLDINGS ALKALINE POTASSIUM 02348 LAB [facility] SERUM 4 [facility] PLASMA/WH HOLDINGS HOLDINGS OLE BLOOD COLLECTIO 03195 VELIA LEZAMA LASHON N VENOUS 4 CLINIC BLOOD VENIPUNCT URE BILIRUBIN 32144 LAB [facility] LAB [facility]ANT[facility] TOTAL 4 ELIZABETH ELIZABETH HOLDINGS HOLDINGS CALCIUM 43768 [facility] TOTAL 4 ELIZABETH ELIZABETH HOLDINGS HOLDINGS TRANSFERA 01844 LAB F[facility] SE 4 ELIZABETH ELIZABETH ASPARTATE HOLD[place] [address] LAB F[facility] UREA 4 ELIZABETH ELIZABETH NITROGEN HOLDINGS HOLDINGS QUANTITAT MORENITA IAADIADOO 69091 MEANS BUTROS 4 ADULT MARISEL STREPTOCO PRIMARY CCUS CARE CLI GROUP A INJECTION J1040 INTEGRITY RICHARDS, 4 JR. JAM METHYLPRE ORTHOPAED DNISOLONE ICS SPORT ACETATE 80 MG ARTHROCEN 24175 INTEGRITY RICHARDS, TESIS 4 JR. JAM ASPIR&/IN ORTHOPAED J MAJOR ICS SPORT JT/BURSA W/O US MRI ANY [address] [place] ROJAS JT LOWER 4 RADIOLOGY JOSE EXTREM W/O CONTRAST MATRL SLINGS A4565 BREG INC. BREG INC. 4 RADEX 12380 [facility] SHOULDER 4 MEDICAL NANI COMPLETE IMAGING [...] INHAL NON-CP U DOSE PER MG PRESSURIZ 18961 VELIA SCHMITZ- ED/NONPRE 4 [facility] SSURIZED INHALATIO N TREATMENT THERAPEUT 84757 VELIA SCHMITZ- IC 4 [facility] PROPHYLAC TIC/DX INJECTION SUBQ/IM DEMO&/KERWIN 62338 VELIA SCHMITZ- L OF PT 4 [facility] UTILIZ AERSL GEN/NEB/I NHLR/IP THERAPEUT 23189 SCHULTE CHR SCHULTE CHR IC PX 1/> 4 AREAS EACH 15 MIN EXERCISES MANUAL 43239 SCHULTE CHR SCHULTE CHR THERAPY 4 TQS 1/> REGIONS EACH 15 MINUTES MANUAL 27810 SCHULTE CHR SCHULTE CHR THERAPY 4 TQS 1/> REGIONS EACH 15 MINUTES THERAPEUT 71973 SCHULTE CHR SCHULTE CHR IC PX 1/> 4 AREAS EACH 15 MIN EXERCISES THERAPEUT 83325 SCHULTE CHR SCHULTE CHR IC PX 1/> 4 AREAS EACH 15 MIN EXERCISES MANUAL 32486 SCHULTE CHR SCHULTE CHR THERAPY 4 TQS 1/> REGIONS EACH 15 MINUTES MANUAL 64011 SCHULTE CHR SCHULTE CHR THERAPY 4 TQS 1/> REGIONS EACH 15 MINUTES THERAPEUT 67228 SCHULTE CHR SCHULTE CHR IC PX 1/> 4 AREAS EACH 15 MIN EXERCISES THERAPEUT 90212 SCHULTE CHR SCHULTE CHR IC PX 1/> 4 AREAS EACH 15 MIN EXERCISES MANUAL 58006 SCHULTE CHR SCHULTE CHR THERAPY 4 TQS 1/> REGIONS EACH 15 MINUTES MANUAL 41000 SCHULTE CHR SCHULTE CHR THERAPY 4 TQS 1/> REGIONS EACH 15 MINUTES THERAPEUT 55493 SCHULTE CHR SCHULTE CHR IC PX 1/> 4 AREAS EACH 15 MIN EXERCISES PHYSICAL 24910 SCHULTE CHR SCHULTE CHR THERAPY 4 EVALUATIO N RADEX 39975 CHATTHA CHATTHA ANKLE 4 SHANNON SHANNON COMPLETE MINIMUM 3 VIEWS ANKLE L1902 [employer] BL[employer]ASS ORTH 4 BRACING BRACING ANKLE INC. INC. GAUNT/SIM PREFAB OFF-THE-S HELF RADIOLOGI 31299 CHATTHA KALTHA C 4 SHANNON SHANNON EXAMINATI ON KNEE 1/2 VIEWS COMPRE 90743 [facility] SET AUDIOMETR 4 PHYSICIAN Y PRACTICE THRESHOLD L EVAL SP RECOGNIJ TYMPANOME 24873 [place] [facility] SET TRY 4 PHYSICIAN PRACTICE L CUL BACT 35889 [employer], XCPT 4 CIRCULAR SAWYER STONE CIRCULAR SAW[employer]ER STONE URINE HATTIE KUHN BLOOD/STO [place] [address] [employer], [employer], SHIGA-LIK 4 CIRCULAR SAWYER STONE CIRCULAR SAW[employer]ER STONE E TOXIN HATTIE HATTIE CO HOS CO HOS OVA&MARVA 38825 [employer], ITES 4 CIRCULAR SAWYER STONE CIRCULAR SAWYER STONE DIRECT HATTIE KUHN SMEARS CO HOS CO HOS CONCENTRA TION & ID BLOOD 15716 [facility], [facility], COUNT 4 CIRCULAR SAWYER STONE CIRCULAR [employer] STONE COMPLETE HATTIE HATTIE AUTO&AUTO CO HOS CO HOS DIFRNTL WBC BLOOD 21380 [facility], [facility], OCCULT 4 CIRCULAR SAWYER STONE CIRCULAR [facility] [employer]ONE PEROXIDAS HATTIE HATTIE E ACTV CO HOS CO HOS QUAL FECES 1 DETER LEUKOCYTE 37205 [facility], [facility], ASSMT 4 CIRCULAR SAWYER STONE CIRCULAR [facility] STONE FECAL HATTIE HATTIE QUAL/SEMI CO HOS CO HOS QUANTITAT MORENITA CUL BACT 18415 [facility], [facility], STOOL 4 CIRCULAR SAW[facility]ER STONE CIRCULAR [facility] STONE AEROBIC HATTIE HATTIE ISOL CO HOS CO HOS SALMONELL A&SHIGELL CUL BACT 50358 [facility], [facility], STOOL 4 CIRCULAR SAWYER STONE CIRCULAR [facility] STONE AEROBIC HATTIE HATTIE ADDL CO HOS CO HOS PATHOGENS &ID EA SMR PRIM 87298 [facility], [facility], SRC CPLX 4 CIRCULAR SAWYER STONE CIRCULAR SAW[facility]ER STONE SPEC HATTIE HATTIE STAIN CO HOS CO HOS OVA&MARVA ITS COMPREHEN 17980 [facility], [facility], SIVE 4 CIRCULAR SAWYER STONE CIRCULAR [facility] STONE METABOLIC AHTTIE HATTIE PANEL CO HOS CO HOS IAADIADOO 62439 [facility] 4 [place] STREPTOCO CCUS GROUP A SPMTRY 81601 INGE INGE W/VC 4 CHAD CHAD EXPIRATOR Y RADHA W/WO MXML VOL VNTJ IAADIADOO 03379 ASTRID RESENDIZ 4 NAN NAN STREPT[place] CCUS GROUP A PREPJ& 71801 INGE INGE ALLERGEN 4 CHAD CHAD IMMUNOTHE RAPY 1/AUTOMATIC SPINNING LATHE SETTER ANTIGEN BASIC 27981 [facility], [employer], METABOLIC 4 CIRCULAR [facility] STONE CIRCULAR [facility]ONE PANEL HATTIE HATTIE CALCIUM CO HOS CO HOS TOTAL BLOOD 30487 [facility], [employer], COUNT 4 CIRCULAR SAW[facility] STONE CIRCULAR [facility]ONE COMPLETE HATTIE HATTIE AUTO&AUTO CO HOS CO HOS DIFRNTL WBC RADIOLOGI 58273 [facility], [facility], C EXAM 4 CIRCULAR SAW[facility] STONE CIRCULAR [facility] STONE CHEST 2 HATTIE HATTIE VIEWS CO HOS CO HOS FRONTAL&L ATERAL THER 98866 [facility], [facility], PROPH/DX 4 CIRCULAR [facility] STONE CIRCULAR [facility] STONE NJX IV HATTIE HATTIE PUSH CO HOS CO HOS SINGLE/1S T SBST/DRUG PRESSURIZ 72175 [employer], [employer], ED/NONPRE 4 CIRCULAR SAW[facility]ER STONE CIRCULAR [facility] STONE SSURIZED HATTIE KUHN [place] [address] [employer], [employer], INFUSION 4 CIRCULAR [facility]ONE CIRCULAR [facility]ONE THERAPY/P HATTIE KUHN ROPHYLAXI CO HOS CO HOS S /DX 1ST TO 1 HR IIV3 10129 [facility] VACCINE 4 [place] SPLIT VIRUS 0.5 ML DOSAGE IM USE PROF SVCS 89183 INGE INGE ALLG 4 CHAD CHAD IMMNTX X W/PRV ALLGIC XTRCS NJXS PREPJ& 79154 INGE INGE ALLERGEN 4 CHAD CHAD IMMUNOTHE RAPY 1/AUTOMATIC SPINNING LATHE SETTER ANTIGEN PERCUTANE 18742 INGE INGE OUS TESTS 3 CHAD CHAD W/ALLERGE KIERA EXTRACTS INTRACUTA 66784 INGE INGE NEOUS 3 CHAD CHAD TESTS W/ALLERGE KIERA EXTRACTS SPMTRY 43797 INGE INGE W/VC 3 CHAD CHAD EXPIRATOR Y RADHA W/WO MXML VOL VNTJ RADEX 56281 NETTACHJessy NOGUEIRAENSCHN ANKLE 3 EIDER LASHON EIDER LASHON COMPLETE MINIMUM 3 VIEWS RADEX 36232 HAGENSCHJessy NOGUEIRAENSCHN FOOT 3 EIDER LASHON EIDER LASHON COMPLETE MINIMUM 3 VIEWS URNLS DIP 36596 [facility] 3 [place] STICK/TAB LET RGNT AUTO W/O MICROSCOP Y DETERMINA 58201 DREW RUSSELL TION 3 GRE GRE REFRACTIV E STATE SPMTRY 10933 INGE INGE W/VC 3 CHAD CHAD EXPIRATOR Y RADHA W/WO MXML VOL VNTJ OPHTH 73603 DREW RUSSELL MEDICAL 3 GRE GRE XM&EVAL COMPRE NEW PT 1/> VST RADEX 74130 [employer] [employer], FOOT 3 CIRCULAR SAW[facility]ER STONE CIRCULAR SAW[facility] STONE COMPLETE HATTIE KUHN MINIMUM 3 CO HOS CO HOS VIEWS BRNCDILAT 95470 INGE INGE RSPSE 3 CHAD BONILLA SPMTRY PRE&POST- BRNCDILAT ADMN SPACR A4627 MT MED MT MED BAG/RESRV 3 EQUIPMENT EQUIPMENT OR W/WO INC INC MASK W/METRD DOSE INHAL URINE 51545 [place] 3 [facility] VISUAL COLOR CMPRSN METHS LEVEL III 56863 TANOUS, TANOUS, SURG 3 JR EDW [facility] GROSS&JANA ROSCOPIC EXAM ANES 91542 SIENNA ANT SIENNA ANT INTRAPERI 3 TONEAL UPPER ABDOMEN W/LAPS NOS PRESSURIZ 79414 [facility] ED/NONPRE 3 [facility] INHALATIO N TREATMENT LAPAROSCO 20232 MAKAYLA JR MAKAYLA JR PY SURG 3 KASSANDRA KASSANDRA CHOLECYST ECTOMY BLOOD 33209 [facility] 3 [facility] AUTO&AUTO DIFRNTL WBC COLLECTIO 46789 KASI [place] N VENOUS 3 [facility] VENIPUNCT URE COMPREHEN 54465 [facility] SIVE 3 [facility] PANEL HEPATOBIL 51459 RUSSEL RUSSEL SYST 3 RHO RHO IMAG INC GB W/[place] [address] [employer], AMYLASE 3 CIRCULAR [facility] CIRCULAR [facility]ONE HATTIE HATTIE CO HOS CO HOS COMPREHEN 72338 [employer], SIVE 3 CIRCULAR [facility] CIRCULAR [facility] METABOLIC HATTIE HATTIE PANEL CO HOS CO HOS BLOOD 86423 [employer], COUNT 3 CIRCULAR [facility] CIRCULAR [facility] COMPLETE HATTIE HATTIE AUTO&AUT[place] [address] CHAWLA CHAWLA ABDOMINAL 3 FERMÍN FERMÍN REAL TIME W/IMAGE LIMITED ADMN SET [id number] YOUR YOUR SM VOL 3 PHARMACY PHARMACY [facility] PNEUMAT NEBULIZR DISPBL NEBULIZER E0570 DANGELO PIERSON WITH 3 HOME HOME COMPRESSO MEDICAL MEDICAL R EQUIPME EQUIPME RADIOLOGI 92774 NELLIE BALLARD C EXAM 3 EIGARCES CHEST 2 VIEWS FRONTAL&L ATERAL RADIOLOGI 05730 NELLIE BALLARD C EXAM 3 EIDER LASHON OATES CHEST 2 VIEWS FRONTAL&L ATERAL INJECTION J1100 [facility] 3 Y Y DEXAMETHO [facility] SONE SODIUM PHOSPHATE [address] [facility] LACTATE 3 Y Y INFUSION [facility] UP TO 1000 CC EXC TUMOR 88637 ADLER ADLER SOFT 3 TONYA TONYA TISS NECK/THOR AX SUBFASCIA L <5CM ANES 92190 HOWARD JANA HOWARD JANA INTEG 3 MUSC & NRV HEAD NECK&POST ERIOR TRUNK BX/EXC 64103 [facility] LYMPH 3 Y Y NODE OPEN [facility] DEEP CERVICAL NODE INJECTION J2250 [facility] 3 Y Y MIDAZOLAM [facility] HCL PER [address] IN[address] [facility] 3 Y Y [facility] [place] ON HCL PER 1 [place] [address] MONTILLA MOL MONTILLA MOL SURG 3 PATHOLOGY GROSS&JANA ROSCOPIC EXAM URINE 05872 [facility] 3 Y Y TEST [facility] VISUAL COLOR CMPRSN METHS INJECTION J3010 [facility] FENTANYL 3 Y Y CITRATE [facility] 0.[address] [facility] NORMAL 3 Y Y SALINE [facility] SOLUTION 1000 CC BLOOD 35890 [facility] [employer], [facility] INC, COUNT 3 CIRCULAR [facility] CIRCULAR [facility] COMPLETE HATTIE KUHN AUTO&AUTO CO HOS CO HOS DIFRNTL WBC GONADOTRO 18379 [employer], PIN 3 CIRCULAR [facility]ONE CIRCULAR [facility] CHORIONIC HATTIE KUHN CO HOS CO HOS QUALITATI VE THYROID 42164 [facility] INC, [facility] INC, HORM 3 CIRCULAR [facility] CIRCULAR [facility] UPTK/THYR HATTIE KUHN OID CO HOS CO HOS HORMONE BINDING RATIO HEMOGLOBI 26333 [facility] INC, [facility] INC, N 3 CIRCULAR [facility]ONE CIRCULAR [facility] GLYCOSYLA HATTIE KUHN DOROTHY A1C CO HOS CO HOS BLOOD 86256 [facility] [employer], [employer], COUNT 3 CIRCULAR [facility]ER STONE CIRCULAR [facility] COMPLETE HATTIE HATTIE AUTO&AUTO [place] [address] [employer], [employer], THYROXINE 3 CIRCULAR [facility]ONE CIRCULAR [facility] TOTAL HATTIE HATTIE CO HOS CO HOS US SOFT 01970 HAGENSCHN HAGENSCHN TISSUE 3 EIGARCES HEAD & [place] [address] [employer], [employer], EXTREMITY 3 CIRCULAR [facility] CIRCULAR [facility] NON-VASC HATTIE HATTIE CO HOS [place] [address] [employer], THYROID 3 CIRCULAR [facility] CIRCULAR [facility] STIMULATI HATTIE HATTIE NG [place] [address] [employer], [employer], INSULIN 3 CIRCULAR [facility]ONE CIRCULAR [facility] TOTAL [place] [address] [employer], [employer], FREE 3 CIRCULAR [facility] STONE CIRCULAR [facility] THYROXINE HATTIE HATTIE CO HOS CO HOS COMPREHEN 12532 [employer], [employer], SIVE 3 CIRCULAR [facility]ONE CIRCULAR [facility] METABOLIC HATTIE [place] [address] [facility] CERVICAL 2 ANIBAL SPINE W/O RADIOLOGY CONTRAST ASSOCIAT MATERIAL GROUND A0425 SWISS SWISS MILEAGE 2 AMBULETT AMBULETT PER & & STATUTE AMBULANC AMBULANC MILE AMBULANCE A0429 SWISS SWISS SERVICE 2 AMBULETT AMBULETT BLS & & EMERGENCY AMBULANC AMBULANC TRANSPORT COLONOSCO 21388 [facility] PY 2 Y Y W/BIOPSY [facility] SINGLE/MU LTIPLE EGD 69416 [facility] TRANSORAL 2 Y Y BIOPSY [facility] SINGLE/MU LTIPLE CUL BACT 53401 [facility] PIPPA 2 [facility] IS[facility] XCPT UR BLOOD/STO OL INJECTION J2250 [facility] 2 Y Y MIDAZOLAM [facility] HCL PER [address] [facility] LACTATE 2 Y Y INFUSION [facility] UP TO [address] [place] [address] [facility] SURG 2 Y Y PATHOLOGY [facility] GROSS&JANA ROSCOPIC EXAM INJECTION J3010 [facility] FENTANYL 2 Y Y CITRATE [facility] 0.1 MG ANES 15548 [place] HOANGLORENASELECT MEDICAL [facility] INTESTINE SERVICES [place] [address] [facility] INC, [facility] INC, MULT STEP 2 CIRCULAR [facility]ONE CIRCULAR [facility]ER STONE METHOD HATTIE KUHN NOS EACH CO HOS CO HOS ORGANISM FAT/LIPID 01205 [facility] INC, [facility] INC, S FECES 2 CIRCULAR [facility] CIRCULAR [facility] QUALITATI HATTIE [place] [address] [facility] INC, [facility] INC, CLOSTRIDI 2 CIRCULAR [facility] CIRCULAR [facility] STONE UM HATTIE HATTIE DIFFICILE CO HOS CO HOS TOXIN RADEX 12694 [facility] FOOT 2 E[facility]ER LASHON COMPLETE RADIOLOGY MINIMUM 3 ASSOCIAT VIEWS C-REACTIV 74649 [facility] E PROTEIN 2 Y Y [facility] IMMUNOASS 67670 [facility] AY 2 Y Y ANALYTE [facility] QUAL/SEMI QUAL MULTIPLE STEP BLOOD 52793 [facility] COUNT 2 Y Y COMPLETE [facility] [place] [address] [facility] GAMMAGLOB 2 Y Y S[facility]PS [facility] [place] [address] [facility] THYROID 2 Y [facility] HORMONE TSH COMPREHEN 62869 [facility] SIVE 2 Y Y METABOLIC [facility] PANEL SIMPLE 99301 HATTIE BROOKS REPAIR 2 CO DIOGENES F/E/E/N/L HOSPITAL /M 2.5CM/< SIMPLE 50205 [facility] INC, [facility] INC, REPAIR 2 CIRCULAR [facility] CIRCULAR SAWYER STONE F/E/E/N/L HATTIE HATTIE /M CO HOS CO HOS 2.5CM/< GONADOTRO 53621 [facility] INC, [facility] INC, PIN 2 CIRCULAR SA[facility] STONE CIRCULAR [facility] CHORIONIC HATTIE HATTIE CO HOS CO HOS QUALITATI VE RADEX 25896 [facility] SPINE 2 EIDER LASHON THORACIC RADIOLOGY 2 VIEWS ASSOCIAT INJECTION J2001 [facility] INC, [facility] INC, 2 CIRCULAR [facility] STONE CIRCULAR [facility] LIDOCAINE HATTIE HATTIE HCL CO HOS CO HOS INTRAV[place] [address] [place] [address] [facility] CERVICAL 2 ANIBAL SPINE W/O RADIOLOGY CONTRAST ASSOCIAT MATERIAL RADEX 11694 [facility] SPINE 2 EIDER LASHON LUMBOSACR RADIOLOGY AL 2/3 ASSOCIAT VIEWS THERAPEUT 46762 [facility] [employer], [employer], IC 2 CIRCULAR SAWYER STONE CIRCULAR [facility]ONE PROPHYLAC HATTIE HATTIE TIC/DX CO HOS CO HOS INJECTION SUBQ/IM INJECTION J1885 [facility], 2 CIRCULAR [facility]ER STONE CIRCULAR [facility] KETOROLAC HATTIE HATTIE CO HOS CO HOS TROMETHAM INE [place] 15 [place] [address] MD DIEGO CORTEZ MD TRANSVAGI 2 STEPHEN STEPHEN NAL HEPATOBIL 09387 [facility] SYST 2 [facility] GB W/PHARMA INTERVENJ BASIC 12925 [facility] METABOLIC 2 [facility] CALCIUM TOTAL COLLECTIO 88993 [facility] N VENOUS 2 [facility] VENIPUNCT URE URINE 57113 [facility] 2 [facility] VISUAL COLOR CMPRSN METHS URNLS DIP [address] STICK/TAB [facility] LET REAGENT AUTO MICROSCOP Y THER 52245 [facility] PROPH/DX 2 [facility] NJX IV [facility] PUSH SINGLE/1S T SBST/[place] [address] [place] RADHA MAT ABDOMEN & 2 RADIOLOGY PELVIS W/O CONTRAST MATERIAL BLOOD 67083 [facility] 2 [facility] AUTO&AUTO DIFRNTL WBC CYTP C/V 68616 PATHOLOGY PICKLESIM AUTO THIN 2 & ER JR RADAMES LYR CYTOLOGY PREPJ SCR LAB MNL RESCR PHYS URINLS 48182 JEFE MAYBERRY DARRION DIP 2 STICK/TAB LET REAGNT NON-AUTO MICRSCPY URINLS 33895 JEFE MAYBERRY DARRION DIP 2 STICK/TAB LET REAGNT NON-AUTO MICRSCPY IAADIADOO 71282 JEFE MAYBERRY DARRION 1 STREPTOCO CCUS GROUP A THYROID 11-23-201 10014 [facility] HORM 1 AMERIC AMERIC UPTK/THYR HOLDINGS HOLDING [place] [address] [facility] THYROXINE 1 AMERIC AMERIC TOTAL HOLDINGS HOLDING GENERAL 49599 [facility] HEALTH 1 AMERIC AMERIC PANEL HOLDINGS HOLDING COLLECTIO 78302 JEFE MAYBERRY DARRION N VENOUS 1 BLOOD VENIPUNCT URE RADEX 60582 HATTIE KUHN ELBOW 1 CO CO COMPLETE [facility] MINIMUM 3 [place] [address] MD DIEGO CORTEZ MD TRANSVAGI 1 STEPHEN STEPHEN NAL RINGERS J7120 [facility] LACTATE 1 Y Y INFUSION [facility] UP TO [address] [place] [address] [facility] LIPASE 1 Y Y [facility] US PELVIC 31802 [facility] 1 [facility] NONOBSTET RADIOLOGY FERMÍN ASSOCIAT REAL-TIME IMAGE COMPLETE INJECTION J2270 [facility] MORPHINE 1 Y Y SULFATE [facility] UP TO [address] [facility] PROPH/DX 1 Y Y NJX IV [facility] PUSH SINGLE/1S T SBST/DRUG THERAPEUT 19896 [facility] IC 1 Y Y INJECTION [facility] IV PUSH EACH NEW DRUG [facility] 82487 [facility] DISCHARGE 1 OSI OSI DAY MANAGEMEN T > [address] B[address] [facility] COUNT 1 Y Y COMPLETE [facility] AUTO&AUTO DIFRNTL WBC INFUSION J7030 [facility] NORMAL 1 Y Y SALINE [facility] SOLUTION [address] IN[address] [facility] 1 Y Y [facility] [place] ON HCL PER [address] [facility] SIVE 1 Y Y METABOLIC [facility] PANEL URNLS DIP 17200 [facility] 1 Y Y STICK/TAB [facility] LET RGNT AUTO [place] [address] [facility] INFUSION 1 Y Y HYDRATION [facility] EACH ADDITIONA L HOUR DUP-SCAN 66621 [place] ARTL RADHA 1 MEDICAL [place] ABDL/PEL/ SERV SCROT&/RP FOUNDATIO R ORGN COM URINE 67521 HATTIE KUHN 1 CO CO TEST [facility]OSP[facility] VISUAL COLOR CMPRSN METHS SBSQ 09868 [facility] 1 DREAD DREAD CARE/DAY 25 MINUTES INITIAL 05441 [facility] 1 OSI OSI CARE/DAY 70 MINUTES URNLS DIP 26824 HATTIE KUHN 1 CO CO STICK/TAB HOSPITAL HOSPITAL [place] [address] HATTIE KUHN INFUSION 1 CO CO THERAPY/P HOSPITAL HOSPITAL ROPHYLAXI S /DX 1ST TO 1 HR BLOOD 52952 HATTIE KUHN COUNT 1 CO CO COMPLETE [facility] AUTO&AUTO DIFRNTL WBC BASIC 08989 HATTIE KUHN METABOLIC 1 CO CO PANEL [facility] G0378 HATTIE KUHN OBSERVATI 1 CO CO ON HOSPITAL HOSPITAL SERVICE PER HOUR INJECTION J2550 HATTIE KUHN 1 CO CO [facility] INE HCL UP TO 50 MG COMPREHEN 92718 [facility] SIVE 1 [facility] PANEL URINE 08123 [place] 1 [facility] VISUAL COLOR CMPRSN METHS COLLECTIO 40969 [place] [facility] N VENOUS 1 [facility] VENIPUNCT URE BLOOD 37592 [place] COUNT 1 [facility] AUTO&[place] [address] [place] ABDOMEN & 1 [facility] PELVIS [facility] W/CONTRAS T MATERIAL THER 71228 [place] PROPH/DX 1 [facility] NJX IV [facility] PUSH SINGLE/1S T SBST/DRUG URNLS DIP 68950 [place] 1 [facility] STICK/TAB [facility] LET REAGENT AUTO MICROSCOP Y RADEX 53986 [facility] HAND 1 FERMÍN MINIMUM 3 RADIOLOGY VIEWS ASSOCIAT APPLICATI 70099 HATTIE BLANK ON FINGER [address] [facility] STATIC IAADIADOO 29685 REJI MAYBERRY DARRION 1 MEDICAL STREPTOCO CLINIC CCUS GROUP A SMR PRIM 99179 HATTIE KUHN SRC 0 CO CO GRAM/GIEM [facility] SA STAIN BCT FUNGI/DARELL L CUL BACT 17905 HATTIE KUHN XCPT 0 CO CO URINE [facility] BLOOD/STO OL AEROBIC ISOL PRESSURIZ 73008 HATTIE KUHN ED/NONPRE 0 CO CO SSURIZED [facility]OSP[facility] INHALATIO N TREATMENT HOSPITAL 19443 [facility] DISCHARGE 0 DREAD DREAD DAY MANAGEMEN T 30 MIN/< ELECTROLY 75676 HATTIE KUHN TE PANEL 0 CO [facility] URNLS DIP 39930 HATTIE KUHN 0 CO CO STICK/TAB [facility]OSP[facility] LET REAGENT AUTO MICROSCOP Y US PELVIC 19383 HATTIE KUHN 0 CO CO NONOBSTET [facility] FERMÍN REAL-TIME IMAGE COMPLETE PRESSURIZ 94907 HATTIE KUHN ED/NONPRE 0 CO CO SSURIZED [facility] INHALATIO N TREATMENT BLOOD 14263 HATTIE KUHN COUNT 0 CO CO SMEAR [facility] W/MNL DIFRNTL WBC COUNT INITIAL 41036 [facility] 0 DREAD DREAD CARE/DAY 50 MINUTES COLLECTIO 60730 HATTIE KUHN N VENOUS 0 CO CO BLOOD [facility] VENIPUNCT [facility] G0378 HATTIE KUHN OBSERVATI 0 CO [facility]ITAL HOSPITAL SERVICE PER HOUR COLLECTIO 55456 HATTIE Jiménez VENOUS 0 CO CO BLOOD [facility] 52348 HATTIE KUHN METABOLIC 0 CO CO PANEL [facility] CALCIUM TOTAL GONADOTRO 79258 HATTIE KUHN PIN 0 CO CO CHORIONIC [facility] QUALITATI VE BLOOD 55220 HATTIE KUHN COUNT 0 [facility] MCRSCP W/MNL DIFRNTL WBC COUNT CUL BACT 83816 HATTIE HATTIE XCPT 0 CO CO URINE [facility] BLOOD/STO OL AEROBIC ISOL ANTIBODY 32325 HATTIE KUHN INFLUENZA 0 CO CO VIRUS [facility] RADIOLOGI 10461 HATTIE KUHN C EXAM 0 CO CO CHEST 2 [facility] VIEWS FRONTAL&[place] [address] HATTIE KUHN INFUSION 0 CO CO THERAPY/P [facility] ROPHYLAXI S /DX 1ST TO 1 [place] [address] HATTIE KUHN STREPTOCO 0 CO CO CCUS [facility] GROUP A URNLS DIP 16035 HATTIE KUHN 0 CO CO STICK/TAB [facility] LET REAGENT AUTO MICROSCOP Y PRESSURIZ 42715 HATTIE KUHN ED/NONPRE 0 CO CO SSURIZED [facility] INHALATIO N TREATMENT RADEX 68365 HATTIE KUHN HAND 0 CO CO MINIMUM 3 [facility] VIEWS CT PELVIS 97005 [place] [facility]HA, 0 RADIOLOGY VALERIE D W/CONTRAS T MATERIAL BLOOD 12502 [facility] COUNT 0 [facility] AUTO&[place] [address] [place] RADHA, ABDOMEN 0 RADIOLOGY VALERIE D W/CONTRAS T MATERIAL BASIC 75644 [facility] MET[facility]OLIC 0 [facility] CALCIUM TOTAL URINLS 62680 [facility], DIP 0 MEDICAL DINAH R STICK/TAB CLINIC LET REAGNT NON-AUTO MICRSCPY COLLECTIO 96316 [facility] N VENOUS 0 [facility] [place] [address] LAB[facility] OF [facility]ONE OF THYROID 0 [facility] [place] [address] [facility] INSULIN 0 [facility] [address] [facility] PROLACTIN 0 [facility] GLUCOSE 44038 [facility] QUANTITAT 0 [facility] MORENITA BLOOD XCPT REAGENT STRIP DEHYDROEP 56738 [facility] IANDROSTE 0 [facility] JEWEL-SULF ATE CULTURE 68275 [facility] BACTERIAL 0 AMERIC [employer] HOLDING HOLDING QUANTTATI VE COLONY COUNT URINE URINLS 89215 [facility] YOUNG, DIP 0 MEDICAL DINAH R STICK/TAB CLINIC LET REAGNT NON-AUTO MICRSCPY URINLS 80572 [facility] YOUNG, DIP 0 MEDICAL DINAH R STICK/TAB CLINIC LET REAGNT NON-AUTO MICRSCPY URINE 62749 [facility] YOUNG, 0 MEDICAL DINAH R TEST CLINIC VISUAL COLOR CMPRSN METHS ORTHOPTIC 25972 [facility], 9 VISION ZEINAB S &/PLEOPTI ANDLEARNI C NG TRAINING W/[place] [address] [facility], 1/> AREAS 9 VISION ZEINAB S EACH 15 ANDLEARNI MIN NG NEUROMUSC REEDUCA THERAPEUT 56575 [facility], IC PX 1/> 9 VISION ZEINAB S AREAS ANDLEARNI EACH 15 NG MIN EXERCISES THERAPEUT 11450 [facility], IC PX 1/> 9 VISION ZEINAB S AREAS ANDLEARNI EACH 15 [place] [address] [facility], 1/> AREAS 9 VISION ZEINAB S EACH 15 ANDLEARNI MIN NG NEUROMUSC REEDUCA ORTHOPTIC 73086 [facility], 9 VISION ZEINAB S &/PLEOPTI ANDLEARNI C NG TRAINING W/MEDICAL DIRECTJ ORTHOPTIC 12466 [facility], 9 VISION ZEINAB S &/PLEOPTI ANDLEARNI C NG TRAINING W/MEDICAL DIRECTJ THERAPEUT 40352 [facility], IC PX 1/> 9 VISION ZEINAB S AREAS ANDLEARNI EACH 15 [place] [address] [facility], 1/> AREAS 9 VISION ZEINAB S EACH 15 [place] [address] [place], ABDOMINAL 9 ZEINAB S REAL RADIOLOGY TIME W/IMAGE ASSOCIATE DOCUMENTA S PSC TION URNLS DIP 04682 HATTIE VICKOLAS 9 CO CO STICK/TAB [facility] LET REAGENT AUTO MICROSCOP Y RADEX 10508 [place], ELBOW 9 ZEINAB S COMPLETE RADIOLOGY MINIMUM 3 VIEWS ASSOCIATE S PSC CULTURE 26250 HATTIE KUHN BACTERIAL 9 CO [facility] QUANTTATI VE COLONY COUNT URINE RADIOLOGI 04346 [place] C 9 ZEINAB S EXAMINATI RADIOLOGY ON PELVIS 1/2 ASSOCIATE VIEWS S PSC RADEX 48516 [facility], SHOULDER 9 ZEINAB S COMPLETE RADIOLOGY MINIMUM 2 VIEWS ASSOCIATE S PSC RADEX HIP 03877 [place], Tonya ZEINAB S UNILATERA RADIOLOGY L COMPLETE ASSOCIATE MINIMUM 2 S PSC VIEWS THERAPEUT 61536 [facility], IC PX 1/> 9 VISION ZEINAB S AREAS ANDLEARNI EACH 15 [place] [address] [facility], 1/> AREAS 9 VISION ZEINAB S EACH 15 ANDLEARNI MIN NG NEUROMUSC REEDUCA ORTHOPTIC 50029 [facility], 9 VISION ZEINAB S &/PLEOPTI ANDLEARNI C NG TRAINING W/MEDICAL DIRECTJ ORTHOPTIC 83548 [facility], 9 VISION ZEINAB S &/PLEOPTI ANDLEARNI C NG TRAINING W/[place] [address] CHILDRENS GRAEBE, 1/> AREAS 9 VISION ZEINAB S EACH 15 ANDLEARNI MIN NG NEUROMUSC REEDUCA THERAPEUT 48330 CHILDRENS GRAEBE, IC PX 1/> 9 VISION ZEINAB S AREAS ANDLEARNI EACH 15 NG MIN EXERCISES THERAPEUT 05110 CHILDRENS [place]RAEBE, IC PX 1/> 9 VISION ZEINAB S AREAS ANDLEARNI EACH 15 [place] [address] CHILDRENS GRAEBE, 1/> AREAS 9 VISION ZEINAB S EACH 15 ANDLEARNI MIN NG NEUROMUSC REEDUCA ORTHOPTIC 53362 CHILDRENS GRAEBE, 9 VISION ZEINAB S &/PLEOPTI ANDLEARNI C NG TRAINING W/MEDICAL DIRECTJ SENSORMOT 50292 [place]DRENS [place], [place] XM 9 VISION ZEINAB S W/AUTOMATIC SPINNING LATHE SETTER ANDLEARNI HILDA NG OCULAR DEVIJ W/I&R SPX FITTING 07760 FAMILY FALCON SPECTACLE 9 [facility] ZEINAB [place] S XCPT ASSOCIATE APHAKIA S MONOFOCAL DETERMINA 16542 FAMILY FALCON TION 9 [facility] ZEINAB S REFRACTIV ASSOCIATE E STATE S OPHTH 37466 FAMILY FALCON, MEDICAL 9 [facility] ZEINAB S XM&EVAL ASSOCIATE COMPRE S NEW PT 1/> VST FRAMES V2020 FAMILY FALCON PURCHASES 9 [facility] ZEINAB S ASSOCIATE S 1 VISN V2103 FAMILY FALCON PLANO 9 [facility] ZEINAB S TO+/-4.00 ASSOCIATE D SPHER S 0.12-2.00 D CYL EA CUL BACT 04996 HATTIE KUHN XCPT 9 CO CO URINE [facility] BLOOD/STO OL AEROBIC ISOL ANTIBODY 24730 HATTIE KUHN INFLUENZA 9 CO CO VIRUS [facility] [place] [address] HATTIE KUHN STREPTOCO 9 CO CO [facility] GROUP A CUL BACT 71088 HATTIE KUHN XCPT 9 CO CO URINE [facility] BLOOD/[place] [address] HATTIE KUHN STREPTOCO 9 CO CO [facility] [place] [address] HATTIE KUHN STREPTOCO 9 CO CO [facility] GROUP A CUL BACT 06746 HATTIE KUHN XCPT 9 CO CO URINE [facility] BLOOD/STO OL AEROBIC ISOL THER 32964 HATTIE KUHN PROPH/DX 8 CO CO SDX [facility] SUBQ/IM RADEX 79793 HATTIE KUHN FOOT 8 CO CO COMPLETE [facility] MINIMUM 3 VIEWS RADEX 46293 HATTIE KUHN ANKLE 8 CO CO COMPLETE [facility] MINIMUM 3 VIEWS RADIOLOGI 31981 HATTIE KUHN C 8 CO CO [facility] ON KNEE 3 VIEWS RADIOLOGI 25413 [facility] IVEY 8 ZEINAB S EXAMINATI RADIOLOGY ON KNEE 1/2 VIEWS ASSOCIATE S [facility] RADIOLOGI 71590 PORTLANDAlex IVEY 8 ZEINAB S EXAMINATI RADIOLOGY ON FOOT 2 VIEWS ASSOCIATE S [facility] RADIOLOGI 64404 PORTLANDAlex IVEY 8 ZEINAB S EXAMINATI RADIOLOGY ON ANKLE 2 VIEWS ASSOCIATE S [facility] DEMO&/KERWIN 11943 INGE ALCAZAR, L OF PT 8 CHAD B CHAD B UTILIZ AERSL GEN/NEB/I NHLR/IP INTRACUTA 28141 INGE, INGE, NEOUS 8 CHAD B CHAD B TESTS W/ALLERGE KIERA EXTRACTS PERCUTANE 17955 INGEINGE PICHARDO, OUS TESTS 8 CHAD B CHAD B W/ALLERGE KIERA EXTRACTS BRNCDILAT 62283 INGE ALCAZAR, RSPSE 8 CHAD B CHAD B SPMTRY PRE&POST- BRNCDILAT [facility] [address] [facility] DISCHARGE 7 Y OF [facility] DAY [place] MANAGEMEN PEDIA T 30 MIN/< SBSQ 45164 [facility] [place] [facility]ES SBSQ 87789 [facility] 7 Y OF [facility] CARE/DAY [place] 25 PEDIA MINUTES ECG 89691 [facility] ROUTINE 7 Y OF ECG [place] W/LEAST PEDIA 12 LDS W/I&R INITIAL 47955 [facility] 7 Y OF CARE/DAY [place] 70 PEDIA MINUTES Encounters Encounter Start End Date Code Location Performer Type Date OFFICE 07483 [facility] 7 7 ASTHMA III T [place] 45 ASSOC OF MINUTES TH OFFICE 46070 VELIA SCHMITZ- OUTPATIEN 7 7 CLINIC SE T VISIT 15 MINUTES [facility] VOODOO - 7 7 HEALTH OUTPATIEN [place] T PERIODIC 40873 [facility] 7 7 [facility] E MED EST [facility] KIERA KIERA [facility] VOODOO - 7 7 [facility] 7 [facility] T OFFICE 28973 [facility] 7 7 [facility] T V[facility]IT [facility] 10 KIERA KIERA MINUTES OFFICE 33483 VOODOO [facility] 7 7 HEALTH T NEW 60 MEDICAL MINUTES GROUP EMERGENCY 90784 [facility] 7 EMERGENCY VISIT PHYS PSC HIGH SEVERITY& THREAT [facility] VOODOO - 7 7 [facility] 49002 NONA NONA [facility] 7 7 T NEW 20 MINUTES OFFICE 46558 KASI VILLAGOMEZ [facility] 7 7 PHYSICIAN T VISIT PRACTICE 15 L MINUTES OFFICE 33218 VELIA BARNETT [facility] 7 7 CLINIC SE T VISIT 15 MINUTES HOSPITAL MIMI - 7 7 [facility] OUT[facility]EN INC T EMERGENCY 36278 MIMI 7 7 [facility] DEPARTMEN INC T VISIT LOW/MODER SEVERITY EMERGENCY 94025 CLEMENT MUNIZ 7 7 PHYSICIAN DEPARTMEN S, [facility] T VISIT HIGH/URGE NT SEVERITY OFFICE 97972 [facility] 7 [facility] T [facility]IT [facility] 10 KIERA KIERA MINUTES OFFICE 53659 VELIA LEZAMA [facility] 7 7 CLINIC T VISIT 15 MINUTES EMERGENCY 71386 [facility] 6 6 DARRIN PAT DEPARTMEN EMERGENCY T VISIT PHYS HIGH/URGE NT SEVERITY [facility] EMERGENC[facility] 96505 [place] 6 6 [facility] T VISIT MODERATE SEVERITY OFFICE 60204 [facility] 6 [facility] T VISIT 5 HLTH DEPT HLTH DEPT MINUTES KIERA KIERA OFFICE 95986 [facility] T VISIT HLTH DEPT HLTH DEPT 10 KIERA KIERA MINUTES OFFICE 16800 [facility]ELIA BARNETT [facility] 6 6 [facility] T VISIT 15 MINUTES EMERGENCY 03487 [place] 6 6 [facility] T VISIT LOW/MODER SEVERITY [facility]OSP[facility] [place] - 6 6 [facility] T EMERGENCY 66236 [facility] 6 6 DARRIN [facility] EMERGENCY T VISIT PHYS MODERATE SEVERITY EMERGENCY 92422 [facility] 6 6 [facility] T VISIT PHYS HIGH/URGE NT SEVERITY EMERGENCY 28519 [place] 6 6 [facility] T VISIT MODERATE SEVERITY [facility] [place] [facility] 6 6 [facility] T PERIODIC 24164 [facility] 6 6 [facility] E MED EST TH DEPT TH DEPT PATIENT KIERA KIERA 18-39 YRS HOSPITAL [place] - 6 6 [facility] T EMERGENCY 20609 [place] 6 6 [facility] T VISIT MODERATE SEVERITY EMERGENCY 76343 [facility] 6 6 [facility] T VISIT PHYS HIGH/URGE NT SEVERITY [facility] [place] [facility] T OFFICE 11810 BLACK DELCID [facility] 6 6 DIGESTIVE CEC T VISIT CARE 25 CENTER MINUTES OFFICE 58944 VELIA SCHMITZ- OUTPATIEN 6 6 CLINIC SE [facility] T VISIT 25 MINUTES OFFICE 50945 [facility] T VISIT HLTH DEPT [facility] 10 KIERA KIERA MINUTES OFFICE 64766 VELIA OATES OUTPATIEN 6 6 CLINIC T VISIT 15 MINUTES OFFICE 44104 [facility] OUTPATIEN 6 6 DIGESTIVE CEC T NEW 45 CARE MINUTES CENTER OFFICE 04790 VELIA SCHMITZ-SHANON OUTPATIEN 6 6 [facility]IN[facility] T VISIT 15 MINUTES OFFICE 76348 HATTIE RESENDIZ OUTPATIEN 6 6 [facility] T VISIT URGENT 25 TREAT MINUTES OFFICE 96368 [facility] 6 [facility] T VISIT HL DEPT [facility] 10 KIERA KIERA MINUTES OFFICE 93199 HATTIE RESENDIZ OUTPATIEN 6 6 [facility] T VISIT URGENT 25 TREAT MINUTES EMERGENCY 64574 VORKPOR VORKPOR 5 5 EMIGDIO BEAL DEPARTMEN T VISIT HIGH/URGE NT SEVERITY OFFICE 91809 HATTIE HUNTER OUTPATIEN 5 5 [facility] T VISIT URGENT 25 TREAT MINUTES OFFICE 03550 [facility] 5 5 [facility] T VISIT HLTH DEPT [facility] 10 KIERA KIERA MINUTES OFFICE 47825 EAR, NOSE SHASHY CONSULTAT 5 5 AND MIRANDA ION THROAT NEW/ESTAB SPECIAL PATIENT 60 MIN OFFICE 38859 HATTIE RESENDIZ OUTPATIEN 5 5 [facility] T VISIT URGENT 25 TREAT MINUTES EMERGENCY 56687 VORKPOR VORKPOR 5 5 EMIGDIO BEAL DEPARTMEN T VISIT HIGH/URGE NT SEVERITY INITIAL 62878 [facility] 5 5 [facility] E TH DEPT [facility] MEDICINE KIERA KIERA NEW PT AGE 18-39YRS [facility] MIMI - [address] [facility] 08783 MIMI 5 5 [facility] T VISIT LOW/MODER SEVERITY EMERGENCY 29689 CLEMENT HERNADEZ 5 5 [facility] T VISIT MODERATE SEVERITY [facility] 5 5 [facility] T EMERGENCY 03282 [facility] 5 5 [facility] T VISIT HIGH/URGE NT SEVERITY EMERGENCY 09328 [facility] DE[facility] 5 5 EDW EDW VISIT HIGH SEVERITY& THREAT [facility] 5 [facility] T OFFICE 04119 VELIA SCHMITZ-SHANON [facility] 5 5 [facility] T VISIT 15 MINUTES EMERGENCY 37947 KASI 5 5 [facility] T VISIT HIGH/URGE NT SEVERITY OFFICE 12025 VELIA SCHMITZ-SHANON OUTPATI 5 5 CLIN[facility] T VISIT 15 MINUTES [facility] 5 [facility] T OFFICE 17151 INGE ALCAZAR [facility] 5 5 CHAD CHAD T VISIT 25 MINUTES EMERGENCY 84513 SESAR HERNADEZ DEPT 4 4 VISIT HIGH SEVERITY& THREAT [facility] OFFICE 47935 VELIA OATES [facility] 4 4 CLINIC T VISIT 15 MINUTES OFFICE 05124 [facility] OUTPATIEN 4 4 ADULT MARISEL T VISIT PRIMARY 15 CARE CLI MINUTES HOSPITAL MIMI - 4 4 [facility] OUTPATIEN INC T OFFICE 94002 VELIA OATES OUTPATIEN 4 4 CLINIC T VISIT 15 MINUTES OFFICE 12860 [facility] OUTPATIEN 4 4 ADULT MARISEL T VISIT PRIMARY 15 CARE CLI MINUTES OFFICE 63361 VELIA OATES OUTPATIEN 4 4 CLINIC T VISIT 15 MINUTES OFFICE 73550 [facility] OUTPATIEN 4 4 ADULT MARISEL T VISIT PRIMARY 15 CARE CLI MINUTES EMERGENCY 18085 MIMI 4 4 [facility] DEPARTMEN INC T VISIT LOW/MODER SEVERITY HOSPITAL MIMI - 4 4 [facility] OUT[facility] INC T EMERGENCY 92481 DEANGELO UMNIZ 4 4 [facility] T VISIT MODERATE SEVERITY OFFICE 94291 VELIA SCHMITZ-SHANON OUTPATIEN 4 4 [facility] T VISIT 15 MINUTES OFFICE 21082 VELIA SCHMITZ-SHANON OUTPATIEN 4 4 [facility] T VISIT 15 MINUTES OFFICE 97551 [facility]OS OUTPATIEN 4 4 ADULT MARISEL T VISIT PRIMARY 15 CARE CLI MINUTES OFFICE 99613 [facility]TE[facility] RICHARDS, OUTPATIEN 4 4 JR. LOTUS T VISIT ORTHOPAED 15 ICS SPORT MINUTES HOSPITAL [facility] - 4 4 [facility] OUT[facility] T EMERGENCY 79886 FLAVIO MUNIZ 4 4 JANA JANA DEPARTMEN T VISIT MODERATE SEVERITY OFFICE 24446 [facility] CHATFREDIA OUTPATIEN 4 4 SHANNON T VISIT ORTHOPAED 15 ICS SPORT MINUTES OFFICE 34157 VELIA SCHMITZ- OUTPATIEN 4 4 [facility] T VISIT 15 MINUTES OFFICE 99324 CHATKELBY DAMICO OUTPATIEN 4 4 SHANNON SHANNON T NEW 30 MINUTES OFFICE 45467 LUIS FERNANDO LUIS FERNANDO CONSULTAT 4 4 LES LES ION NEW/ESTAB PATIENT 40 MIN OFFICE 36223 VELIA RICHARDSON OUTPATIEN 4 4 CLINIC SERA T VISIT 25 MINUTES OFFICE 03928 VELIA SCHMITZ- OUTPATIEN 4 4 CLINIC SE SMITH T VISIT 15 MINUTES OFFICE 37654 [facility] 4 4 [place] T VISIT 15 MINUTES OFFICE 79553 [facility] OUT[facility] 4 4 [place] T VISIT 15 MINUTES HOSPITAL [facility], - 4 4 [facility] OUTPATIEN HATTIE T CO HOS [facility]OSPITAL [facility], - 4 4 [facility] OUTPATIEN HATTIE T CO HOS OFFICE 52865 [facility] OUT[facility] 4 4 [place] T VISIT 10 MINUTES OFFICE 88539 INGE ALCAZAR OUTPATIEN 4 4 CHAD CHAD T VISIT 25 MINUTES OFFICE 56379 [facility] OUT[facility] 4 4 [place] T VISIT 15 MINUTES OFFICE 53391 ASTRID RESENDIZ OUTPATIEN 4 4 KAREN JONES T VISIT 15 MINUTES PERIODIC 40212 [facility] PREVENTIV 4 4 [place] E MED EST PATIENT 12-17YRS EMERGENCY 61249 [facility], 4 4 [facility] DEPARTMEN HATTIE T VISIT CO HOS HIGH/URGE NT SEVERITY HOSPITAL [facility] - 4 4 [facility] OUTPATIEN [facility]ATTIE T CO HOS OFFICE 00385 [facility] OUT[facility] 4 4 [place] T VISIT 10 MINUTES OFFICE 87203 [facility] OUTPATI[facility] 3 3 [place] T VISIT 15 MINUTES OFFICE 98115 INGE BANKSHBURN OUTPATIEN 3 3 CHAD BONILLA T VISIT 25 MINUTES OFFICE 41762 [facility] OUTPATIEN 3 3 [place] T VISIT 15 MINUTES HOSPITAL [facility], - 3 3 [facility] OUTPATIEN [facility]ATT[facility] T CO HOS OFFICE 48766 INGE INGE OUTPATIEN 3 3 CHAD BONILLA T VISIT 15 MINUTES OFFICE 84013 ASTRID RESENDIZ [facility] 3 3 KAREN JONES T VISIT 15 MINUTES HOSPITAL [facility], - 3 3 [facility] T CO HOS OFFICE 76126 INGE INGE CONSULTAT 3 3 CHAD BONILLA ION NEW/ESTAB PATIENT 80 MIN HOSPITAL [place] - 3 3 [facility] T OFFICE 59015 [facility] 3 3 [place] T VISIT 15 MINUTES [facility] SHAFER - 3 3 [facility] T OFFICE 95442 ALLRAN JR ALLRAN JR CONSULTAT 3 3 KASSANDRA HUGO NEW/ESTAB PATIENT 40 MIN OFFICE 32124 [facility] 3 3 [place] T VISIT 15 MINUTES HOSPITAL [facility] - 3 3 CIRC[facility] HATT[facility] T CO HOS OFFICE 42892 ASTRID RESENDIZ [facility] 3 3 KAREN JONES T VISIT 15 MINUTES HOSPITAL [facility] - 3 3 [facility] INPATIENT HATTIE CO HOS EMERGENCY 93464 KARI PIERCE 3 3 MARIANA PEÑA [facility] T VISIT HIGH/URGE NT [facility]PITAL UNIVERSIT - 3 3 [facility], - 3 3 [facility] OUTPATIEN HATTIE T CO HOS OFFICE 26344 AHMED ADN AHMED ADN OUTPATIEN 3 3 T VISIT 15 MINUTES OFFICE 02076 VITOR ADLER OUTPATIEN 3 3 TONYA TONYA T NEW 30 MINUTES OFFICE 07447 VELIA BARNETT OUTPATIEN 3 3 [facility] T VISIT 15 MINUTES HOSPITAL [facility], - 3 3 [facility] OUTPATIEN HATTIE T CO HOS OFFICE 56332 VELIA SCHMITZ- OUTPATIEN 3 3 [facility]IN[facility] T NEW 30 MINUTES OFFICE 21339 MARYANN MARYANN OUTPATIEN 3 3 ALICIA ALICIA T VISIT 40 MINUTES OFFICE 97219 AHMED ADN AHMED ADN OUTPATIEN 2 2 T VISIT 15 MINUTES OFFICE 73452 FL[facility] FLOMEN[facility]OF OUTPATIEN 2 2 T MANUEL T MANUEL T VISIT 25 MINUTES HOSPITAL UNIVERSIT - 2 2 [facility], - 2 2 [facility] OUTPATIEN HATTIE T CO HOS OFFICE 69318 [facility], OUTPATIEN 2 2 [facility] T VISIT 5 HATTIE MINUTES CO HOS OFFICE 67395 AHMED ADN AHMED ADN OUTPATIEN 2 2 T VISIT 15 MINUTES EMERGENCY 68371 [facility], 2 2 [facility] DEPARTMEN HATTIE T VISIT CO HOS LOW/MODER SEVERITY [facility]OSPITAL [facility], - 2 2 [facility] OUTPATIEN HATTIE T CO HOS OFFICE 21509 AHMED ADN AHMED ADN OUTPATIEN 2 2 T NEW 60 MINUTES OFFICE 71233 FLOMENHOF FLOMENHOF CONSULTAT 2 2 T MANUEL T MANUEL ION NEW/ESTAB PATIENT 40 MIN HOSPITAL [facility]ERSIT - 2 2 [facility] 71882 [facility], 2 2 [facility] DEPARTMEN HATTIE T VISIT CO HOS MODERATE SEVERITY HOSPITAL [facility], - 2 2 [facility] OUTPATIEN HATTIE T CO HOS EMERGENCY 33405 [facility], 2 2 [facility] DEPARTMEN HATTIE T VISIT CO HOS LIMITED/M INOR PROB OFFICE 43161 MD DIEGO CORTEZ MD OUTPATINANCI 2 2 STEPHEN MITCHELL T VISIT 15 MINUTES OFFICE 12584 SARY OKEEFE CONSULTAT 2 2 JOSE GARCIA ION NEW/ESTAB PATIENT 60 MIN [facility] T OFFICE 39576 PER JR PER RODRIGUEZ OUTPATIEN 2 2 VIRGINIE VIRGINIE T VISIT 15 MINUTES [facility]ERGENCY 60304 [facility] T VISIT HIGH/URGE NT SEVERITY OFFICE 96886 PER JR PER RODRIGUEZ OUTPATIEN 2 2 VIRGINIE VIRGINIE T VISIT 15 MINUTES EMERGENCY 57622 SESAR HERNADEZ DEPT 2 2 VISIT HIGH SEVERITY& THREAT [facility] SHAFER - 2 2 [facility] T OFFICE 82493 MD DIEGO CORTEZ MD OUTPATINANCI 2 2 STEPHEN MITCHELL T VISIT 15 MINUTES OFFICE 56384 JEFE MAYBERRY DARRION OUTPATIEN 2 2 T VISIT 15 MINUTES OFFICE 76541 MAYBERRY DARRION MAYBERRY DARRION OUTPATIEN 2 2 T VISIT 25 MINUTES OFFICE 81318 JEFE MAYBERRY DARRION OUTPATIEN 2 2 T VISIT 15 MINUTES OFFICE 20453 JEFE MAYBERRY DARRION OUTPATIEN 1 1 T VISIT 15 MINUTES OFFICE 08675 MAYBERRY DARRION MAYBERRY DARRION OUTPATIEN 1 1 T VISIT 15 MINUTES EMERGENCY 09320 HATTIE 1 1 [facility] T VISIT LIMITED/M INOR PROB EMERGENCY 17938 HATTIE 1 1 [facility] T VISIT LOW/MODER SEVERITY HOSPITAL HATTIE - 1 1 [facility] T OFFICE 57182 MD DIEGO CORTEZ MD OUTPATIEN 1 1 STEPHEN MITCHELL T NEW 30 MINUTES EMERGENCY 51709 HIEN EVI 1 1 MEDICAL [facility] SERV T VISIT FOUNDATIO HIGH/URGE NT SEVERITY HOSPITAL UNIVERSIT - 1 1 Y [facility] HOSPITAL T EMERGENCY 67229 UNIVERSIT DEPT 1 1 Y VISIT HOSPITAL HIGH SEVERITY& THREAT FUNCJ EMERGENCY 40827 HATTIE 1 1 CO [facility]PITAL T VISIT HIGH/URGE NT SEVERITY HOSPITAL [facility]ITE - 1 1 [facility] 1 [facility] T EMERGENCY 27776 [facility] 1 1 [facility] T VISIT HIGH/URGE NT SEVERITY OFFICE 22597 REJI MAYBERRY DARRION OUTPATIEN 1 1 MEDICAL T VISIT CLINIC 25 MINUTES EMERGENCY 54443 HATTIE 1 1 CO [facility]OSPITAL T VISIT LOW/MODER SEVERITY HOSPITAL HATTIE - 1 1 [facility] T OFFICE 07447 REJI MAYBERRY DARRION OUTPATIEN 1 1 MEDICAL T VISIT CLINIC 25 MINUTES OFFICE 76089 SPIREK SPIREK OUTPATIEN 0 0 ANI ANI T VISIT 15 MINUTES HOSPITAL HATTIE - 0 0 [facility] T EMERGENCY 70041 HATTIE DEPT 0 0 CO VISIT HOSPITAL HIGH SEVERITY& THREAT FUNCJ OFFICE 64778 REJI ALBARADO CHE OUTPATIEN 0 0 MEDICAL T VISIT CLINIC 15 MINUTES HOSPITAL HATTIE - 0 0 [facility] T EMERGENCY 88318 HATTIE 0 0 [facility] HOSPITAL T VISIT MODERATE SEVERITY [facility]OSPITAL [place] - 0 0 [facility] T OFFICE 05026 REJI ALBARADO OUTPATIEN 0 0 MEDICAL DINAH R T VISIT CLINIC 25 MINUTES OFFICE 52042 SPIREKMIRYAM OUTPATIEN 0 0 MONROE J MONROE J T NEW 30 MINUTES OFFICE 28353 REJI ALBARADO OUTPATIEN 0 0 MEDICAL DINAH R T VISIT CLINIC 25 MINUTES PERIODIC 65688 REJI ALBARADO, PREVENTIV 0 0 MEDICAL DINAH R E MED EST CLINIC PATIENT 12-17YRS OFFICE 92301 [place] GONZALO OUTPATIEN 9 9 [place] [facility] T VISIT INTERNAL 15 MED MINUTES HOSPITAL HATTIE Gong 9 9 [facility] 52209 HATTIE JAIN 9 9 CO , [facility] SE[facility] HATTIE Castaneda 9 [facility] 09342 HATTIE 9 9 CO [facility] T VISIT LOW/MODER SEVERITY OFFICE 24027 [place] GONZALO OUTPATIEN 9 9 [place] [facility] A T VISIT INTERNAL 15 MED MINUTES OFFICE 15901 [facility] [facility] 9 [facility] T VISIT INTERNAL MOODY F 15 MED MINUTES HOSPITAL HATTIE Gong 9 9 CO [facility] T OFFICE 15327 [place] SIENA OUTPATIEN 9 9 [place] T VISIT INTERNAL 10 MED MINUTES HOSPITAL HATTIE Gong 9 9 [facility] HATTIE Gong 9 9 [facility] EMERGENC[facility] 69197 HATTIE BLANK, 8 8 CO [facility] T VISIT LIMITED/M INOR [facility] HATTIE Ortega 8 CO [facility] T HOSPITAL [facility]ATTIE - 8 8 CO [facility] T EMERGENCY 25861 HATTIE 8 8 CO [facility] T VISIT LIMITED/M INOR PROB EMERGENCY 18412 HATTIE BLANK, 8 8 CO [facility] T VISIT LOW/MODER SEVERITY OFFICE 18265 KRYS UMAÑA 8 8 [place] T VISIT INTERNAL 10 MED MINUTES OFFICE 21927 INGE ALCAZAR, CONSULTAT 8 8 CHAD B CHAD B ION NEW/ESTAB PATIENT 40 MIN OFFICE 46506 KRYS UMAÑA 8 8 [place] VISIT INTERNAL 15 MED MINUTES
--- OUTSIDE RECORDS SUMMARY | 2017-09-01 10:25 | External Medical Summary Rpt | CCD ---
Author Author , SJ GUSTAFSON Address Unknown Phone [email or web address] Immunization Name Date Rout CVX Reac Dose Comm Prov Is Faci e tion ent ider Refu lity Give sed n Vari 03-1 21 0.50 Hist SWIT No H191 cell 5-20 mL oric ZER a 16 al TAMM Info Y rmat ion - Sour ce Unsp ecif ied Tdap 10-2 115 999 Hist [place] No [place] , 1-20 oric Adso 15 al rbed Info rmat ion - Sour ce Unsp ecif ied HPV4 10-2 62 999 Hist H191 No H191 4-20 oric (Gar 07 al dasi Info l) rmat ion - Sour ce Unsp ecif ied HPV4 08-0 62 999 Hist H191 No H191 7-20 oric (Gar 07 al dasi Info l) rmat ion - Sour ce Unsp ecif ied Td 11-2 9 999 Hist H191 No H191 (romaine 2-20 oric lt), 05 al Info adso rmat rbed ion - Sour ce Unsp ecif ied Josh 08-2 10 999 Hist H191 No H191 o-IP 3-20 oric V 01 al Info rmat ion - Sour ce Unsp ecif ied MMR 08-2 3 999 Hist H191 No H191 3-20 oric 01 al Info rmat ion - Sour ce Unsp ecif ied DTaP 12-0 107 999 Hist H191 No H191 , UF 5-19 oric 97 al Info rmat ion - Sour ce Unsp ecif ied MMR 09-0 3 999 Hist H191 No H191 3-19 oric 97 al Info rmat ion - Sour ce Unsp ecif ied Hib, 09-0 17 999 Hist H191 No H191 UF 3-19 oric 97 al Info rmat ion - Sour ce Unsp ecif ied Hep 09-0 8 999 Hist H191 No H191 B, 3-19 oric ped/ 97 al adol Info rmat ion - Sour ce Unsp ecif ied Vari 09-0 21 999 Hist H191 No H191 cell 3-19 oric a 97 al Info rmat ion - Sour ce Unsp ecif ied Josh 09-0 2 999 Hist H191 No H191 o-OP 3-19 oric V 97 al Info rmat ion - Sour ce Unsp ecif ied DTP- 03-1 22 999 Hist H191 No H191 Hib 1-19 oric 97 al Info rmat ion - Sour ce Unsp ecif ied Josh 03-1 2 999 Hist H191 No H191 o-OP 1-19 oric V 97 al Info rmat ion - Sour ce Unsp ecif ied Josh 01-0 2 999 Hist H191 No H191 o-OP 6-19 oric V 97 al Info rmat ion - Sour ce Unsp ecif ied DTP- 01-0 22 999 Hist H191 No H191 Hib 6-19 oric 97 al Info rmat ion - Sour ce Unsp ecif ied DTP- 11-0 22 999 Hist H191 No H191 Hib 4-19 oric 96 al Info rmat ion - Sour ce Unsp ecif ied Josh 11-0 2 999 Hist H191 No H191 o-OP 4-19 oric V 96 al Info rmat ion - Sour ce Unsp ecif ied Hep 10-0 8 999 Hist H191 No H191 B, 2-19 oric ped/ 96 al adol Info rmat ion - Sour ce Unsp ecif ied Hep 08-1 Subc 8 999 Hist [place] No [place] B, 6-19 utan oric ped/ 96 eous al adol Info rmat ion - Sour ce Unsp ecif ied
--- OUTSIDE RECORDS SUMMARY | 2017-09-01 10:25 | External Medical Summary Rpt | CCD ---
Author Author , SJ GUSTAFSON Address Unknown Phone [email or web address] Immunization Name Date Rout CVX Reac Dose Comm Prov Is Faci e tion ent ider Refu lity Give sed n Vari 03-1 21 0.50 Hist SWIT No H191 cell 5-20 mL oric ZER a 16 al TAMM Info Y rmat ion - Sour ce Unsp ecif ied Tdap 10-2 115 999 Hist [place] No [place] , 1-20 oric Adso 15 al rbed [...] ied Hep 08-1 Subc 8 999 Hist [place] No [place] B, 6-19 utan oric ped/ 96 eous al adol Info rmat ion - Sour ce Unsp ecif ied
--- OUTSIDE RECORDS SUMMARY | 2017-09-01 10:25 | External Medical Summary Rpt ---
Author Author [facility], [facility] [employer] Organization [facility] [employer] Address Unknown Phone Unavailable Results Comprehensive metabolic 2000 panel in Serum or Plasma Observa Value Referen Units Interpr Notes Date tion ce etation Range Albumin/G 1.1 - 1.8 No Low No Oct 3 lobulin informati informati 2017 6:55 [Mass on in on in PM ratio] in source source Serum or data data Plasma Albumin 3.4 - 5.0 gm/dL Normal No Oct 3 [Mass/vol informati 2017 6:55 ume] in on in PM Serum or source Plasma data Alkaline 46 - 116 U/L Normal No Oct 3 phosphata informati 2017 6:55 se on in PM [Enzymati source c data activity/ volume] in Serum or Plasma Bilirubin 0.2 - 1.0 mg/dL Normal No Oct 3 .total informati 2017 6:55 [Mass/vol on in PM ume] in source Serum or data Plasma Urea 7 - 18 mg/dL Normal No Oct 3 nitrogen informati 2017 6:55 [Mass/vol on in PM ume] in source Serum or data Plasma Calcium 8.5 - mg/dL Normal No Oct 3 [Mass/vol 10.1 informati 2017 6:55 ume] in on in PM Serum or source Plasma data Chloride 98 - 107 mmoL/L Normal No Oct 3 [Moles/vo informati 2017 6:55 lume] in on in PM Serum or source Plasma data Carbon 21.0 - mmoL/L Normal No Oct 3 dioxide, 32.0 informati 2017 6:55 total on in PM [Moles/vo source lume] in data Serum or Plasma Creatinin 0.55 - mg/dL Normal No Oct 3 e 1.02 informati 2017 6:55 [Mass/vol on in PM ume] in source Serum or data Plasma Creatinin 50 - 200 ML/MIN Normal No Oct 3 e renal informati 2017 6:55 clearance on in PM source predicted data by Cockcroft -Gault formula Estimated 59- ML/MIN No REFERENCE Oct 3 informati RANGE: 2017 6:55 glomerula on in >60 PM r source ML/MIN/1. filtratio data 73 SQUARE n rate METERSIf (GF this patient is -A merican, then multiply theresult by 1.210. Globulin 1.3 - 3.2 gm/dL High No Aug 23 [Mass/vol informati 2016 6:55 ume] in on in PM Serum source data Glucose 74 - 106 mg/dL Normal No Aug 23 [Mass/vol informati 2016 6:55 ume] in on in PM Serum or source Plasma data Potassium 3.5 - 5.1 mmoL/L Normal No Aug 23 informati 2016 6:55 [Moles/vo on in PM lume] in source Serum or data Plasma Sodium 136 - 145 mmoL/L Normal No Aug 23 [Moles/vo informati 2016 6:55 lume] in on in PM Serum or source Plasma data Aspartate 15 - 37 U/L Low No Aug 23 informati 2016 6:55 aminotran on in PM sferase source [Enzymati data c activity/ volume] in Serum or Plasma Alanine 12 - 78 U/L Normal No Aug 23 aminotran informati 2016 6:55 sferase on in PM [Enzymati source c data activity/ volume] in Serum or Plasma Protein 6.4 - 8.2 gm/dL High No Aug 23 [Mass/vol informati 2016 6:55 ume] in on in PM Serum or source Plasma data CBC W Auto Differential panel in Blood Observa Value Referen Units Interpr Notes Date tion ce etation Range Basophils 0 - 0.2 K/MM3 Normal No Aug 23 inform2016 6:55 [#/volume on in PM ] in source Blood by data Automated count Basophils 0.1 - 2.0 % Normal No Aug 23 informati 2016 6:55 leukocyte on in PM s in source Blood by data Automated count Eosinophi 0.0 - 0.4 K/mm3 High No Aug 23 ls informati 2016 6:55 [#/volume on in PM ] in source Blood by data Automated count Eosinophi 0.1 - % Normal No Aug 23 ls/100 12.0 informati 2016 6:55 leukocyte on in PM s in source Blood by data Automated count Granulocy 1.8 - 7.8 K/mm3 Normal No Aug 23 anshu informati 2017 6:55 [#/volume on in PM ] in source Blood by data Automated count Granulocy 37.0 - % Normal No Aug 23 anshu/100 80.0 informati 2017 6:55 leukocyte on in PM s in source Blood by data Automated count Hematocri 37.0 - % Normal No Aug 23 t [Volume 47.0 informati 2016 6:55 on in PM Fraction] source of Blood data Hemoglobi 12.2 - g/dL Normal No Aug 23 n 16.2 informati 2016 6:55 [Mass/vol on in PM ume] in source Blood data Lymphocyt 0.7 - 4.5 K/mm3 Normal No Aug 23 es informati 2017 6:55 [#/volume on in PM ] in source Unspecifi data ed specimen by Automated count Lymphocyt 10 - 50.0 % Normal No Aug 23 es informati 2016 6:55 [#/volume on in PM ] in source Unspecifi data ed specimen by Automated count Erythrocy 27 - 31.2 pg Normal No Aug 23 te mean informati 2016 6:55 corpuscul on in PM ar source hemoglobi data n [Entitic mass] Erythrocy 31.8 - g/dl Low No Aug 23 te mean 35.4 informati 2017 6:55 corpuscul on in PM ar source hemoglobi data n concentra tion [Mass/vol ume] by Automated count Erythrocy 82.2 - fl Normal No Aug 23 te mean 97.8 informati 2016 6:55 corpuscul on in PM ar volume source [Entitic data volume] by Automated count Monocytes 0.1 - 1.0 K/mm3 Normal No Aug 23 informati 2016 6:55 [#/volume on in PM ] in source Blood by data Automated count Monocytes 1.7 - 9.3 % Normal No Aug 23 / informati 2017 6:55 leukocyte on in PM s in source Blood by data Automated count Platelet 7.4 - fl Normal No Aug 23 mean 10.4 informati 2017 6:55 volume on in PM [Entitic source volume] data in Blood by Automated count Platelets 142 - 424 K/mm3 Normal No Aug 23 informati 2016 6:55 [#/volume on in PM ] in source Blood data Erythrocy 4.2 - 5.4 M/mm3 Normal No Aug 23 anshu informati 2016 6:55 [#/volume on in PM ] in source Amniotic data fluid Erythrocy 11.5 - % Normal No Aug 3 te 17.5 informati 2017 6:55 distribut on in PM ion width source [Entitic data volume] by Automated count Leukocyte 4.8 - K/MM3 High No Oct 3 s 10.8 informati 2017 6:55 [#/volume on in PM ] in source Blood data Urinalysis dipstick W Reflex Microscopic panel in Urine Observa Value Referen Units Interpr Notes Date tion ce etation Range Appeara SL CLEAR No No No Aug 23 nce of CLOUDY informa informa informa 2017 Urine tion in tion in tion in 6:55 PM source source source data data data Amorpho 3+ NONE No No No Aug 23 us informa informa informa 2017 sedimen tion in tion in tion in 6:55 PM t source source source [Presen data data data ce] in Urine sedimen t by Light microsc opy Bacteri 2+ O No No No Aug 23 a informa informa informa 2016 [Presen tion in tion in tion in 6:55 PM ce] in source source source Urine data data data sedimen t by Light microsc opy Bilirub NEGATIV NEG No No No Aug 23 in E informa informa informa 2016 [Presen tion in tion in tion in 6:55 PM ce] in source source source Urine data data data by Test strip Erythro 3+ NEG No Abnorma No Aug 23 cytes informa l informa 2016 [Presen tion in tion in 6:55 PM ce] in source source Urine data data Color YELLOW YELLOW No No No Aug 23 of informa informa informa 2017 Urine tion in tion in tion in 6:55 PM source source source data data data Glucose NEG No No No Aug 23 [Mass/vol informati informati informati 2016 6:55 ume] in on in on in on in PM Urine by source source source Test data data data strip Ketones NEGATIV NEG mg/dL No No Aug 23 E informa informa 2016 [Presen tion in tion in 6:55 PM ce] in source source Urine data data by Automat ed test strip Mucus 2+ NEG No Abnorma No Aug 3 [Presen informa l informa 2016 ce] in tion in tion in 6:55 PM Urine source source sedimen data data t by Light microsc opy Nitrite NEGATIV NEG No No No Aug 23 E informa informa informa 2016 [Presen tion in tion in tion in 6:55 PM ce] in source source source Urine data data data by Test strip pH of 5.0 - 8.5 No Normal No Oct 3 Urine informati informati 2017 6:55 on in on in PM source source data data Protein NEG mg/dL No No Aug 23 [Mass/vol informati informati 2017 6:55 ume] in on in on in PM Urine by source source Automated data data test strip Erythro 50-100 0 rbc/hpf No No Aug 23 cytes informa informa 2016 [Presen tion in tion in 6:55 PM ce] in source source Urine data data sedimen t by Light microsc opy Specific 1.005 - No Normal No Aug 23 gravity 1.030 informati informati 2016 6:55 of Urine on in on in PM source source data data Epithel 10-20 0 - 5 #/hpf No No Aug 23 ial informa informa 2017 cells.s tion in tion in 6:55 PM quamous source source data data [Presen ce] in Urine sedimen t by Microsc opy high power field Urobili 0.2 NEG E.U./dL No No Aug 23 nogen informa informa 2016 [Presen tion in tion in 6:55 PM ce] in source source Urine data data by Test strip Leukocy [20 O wbc/hpf No No Aug 3 anshu wbc/hpf informa informa 2016 [#/volu ; 50 tion in tion in 6:55 PM me] in wbc/hpf source source Urine ] data data Choriogonadotropin.beta subunit [Units] in 24 hour Urine Observa Value Referen Units Interpr Notes Date tion ce etation Range Choriogon NEG No No No Aug 23 adotropin informati informati informati 2016 6:55 .beta on in on in on in PM subunit source source source [Units] data data data in 24 hour Urine Urinalysis dipstick W Reflex Microscopic panel in Urine Observa Value Referen Units Interpr Notes Date tion ce etation Range Appeara SL CLEAR No No No Aug 23 nce of CLOUDY informa informa informa 2017 Urine tion in tion in tion in 6:55 PM source source source data data data Bilirub NEGATIV NEG No No No Aug 23 in E informa informa informa 2016 [Presen tion in tion in tion in 6:55 PM ce] in source source source Urine data data data by Test strip Erythro 3+ NEG No Abnorma No Aug 3 cytes informa l informa 2016 [Presen tion in tion in 6:55 PM ce] in source source Urine data data Color YELLOW YELLOW No No No Aug 23 of informa informa informa 2016 Urine tion in tion in tion in 6:55 PM source source source data data data Glucose NEG No No No Aug 23 [Mass/vol informati informati informati 2016 6:55 ume] in on in on in on in PM Urine by source source source Test data data data strip Ketones NEGATIV NEG mg/dL No No Aug 23 E informa informa 2016 [Presen tion in tion in 6:55 PM ce] in source source Urine data data by Automat ed test strip Mucus 2+ NEG No Abnorma No Aug 23 [Presen informa l informa 2016 ce] in tion in tion in 6:55 PM Urine source source sedimen data data t by Light microsc opy Nitrite NEGATIV NEG No No No Aug 23 E informa informa informa 2016 [Presen tion in tion in tion in 6:55 PM ce] in source source source Urine data data data by Test strip pH of 5.0 - 8.5 No Normal No Aug 23 Urine informati informati 2016 6:55 on in on in PM source source data data Protein NEG mg/dL No No Aug 23 [Mass/vol informati informati 2016 6:55 ume] in on in on in PM Urine by source source Automated data data test strip Specific 1.005 - No Normal No Aug 23 gravity 1.030 informati informati 2016 6:55 of Urine on in on in PM source source data data Urobili 0.2 NEG E.U./dL No No Aug 3 nogen informa informa 2016 [Presen tion in tion in 6:55 PM ce] in source source Urine data data by Test strip CHLAMYDIA AND GONORRHEA TESTING Observa Value Referen Units Interpr Notes Date tion ce etation Range COLLECT CARYN No No No No Jun 07 OR MCINTYRE informa informa informa informa 2017 , RN tion in tion in tion in tion in 1:00 PM source source source source data data data data ETHNICI WHITE, No No No No Jun 07 TY NON-HIS informa informa informa informa 2017 PANIC tion in tion in tion in tion in 1:00 PM source source source source data data data data KIT No No No No Jun 07 EXPIRAT 017 informa informa informa informa 2017 ION tion in tion in tion in tion in 1:00 PM DATE source source source source data data data data SYMPTOM NO No No No No Jun 07 S informa informa informa informa 2017 tion in tion in tion in tion in 1:00 PM source source source source data data data data REASON REVISIT No No No No Jun 07 FOR /ANNUAL informa informa informa informa 2017 REQUEST FAMILY tion in tion in tion in tion in 1:00 PM source source source source PLANNIN data data data data G VISIT SPECIME URINE No No No No Jun 07 N informa informa informa informa 2017 SOURCE tion in tion in tion in tion in 1:00 PM source source source source data data data data PREGNAN NO No No No No Jun 07 T informa informa informa informa 2017 tion in tion in tion in tion in 1:00 PM source source source source data data data data CHART [id number] No No No No Jun 07 NUMBER 35 informa informa informa informa 2017 tion in tion in tion in tion in 1:00 PM source source source source data data data data Chlamyd NEGATIV No No No NEGATIV Jun 07 ia E informa informa informa E 2017 trachom tion in tion in tion in RESULT= 1:00 PM atis source source source WITHIN rRNA data data data NORMAL [Presen ce] in LIMITSP Unspeci OSITIVE fied specime RESULT= n by Probe & ABNORMA target LEQUIVO SUE amplifi RESULT= cation method INDETER MINATEU NSATISF ACTORY RESULT= INVALID Neisser NEGATIV No No No NEGATIV Jun 07 ia E informa informa informa E 2017 gonorrh tion in tion in tion in RESULT= 1:00 PM oeae source source source WITHIN rRNA data data data NORMAL [Presen ce] in LIMITSP Unspeci OSITIVE fied specime RESULT= n by Probe & ABNORMA target LEQUIVO SUE amplifi RESULT= cation method INDETER MINATEU NSATISF ACTORY RESULT= INVALID THE APTIMA COMBO 2 ASSAY IS NOT INTENDE D FOR THE EVALUAT ION OF SUSPECT EDSEXUA L ABUSE OR FOR OTHER MEDICO- LEGAL INDICAT IONS. FOR THOSE PATIENT S FORWHOM A FALSE POSITIV E RESULT MAY HAVE ADVERSE PSYCHO- SOCIAL IMPACT, [facility] MMENDS RETESTI NG.\.br \This report contain s patient informa tion that must be protect ed in accorda nce with the Health Insuran ce Portabi lity and Account ability Act. CHLAMYDIA AND GONORRHEA TESTING Observa Value Referen Units Interpr Notes Date tion ce etation Range COLLECT CARYN No No No No Jun 07 OR MIGUELINA informa informa informa informa 2017 , RN tion in tion in tion in tion in 1:00 PM source source source source data data data data ETHNICI WHITE, No No No No Jun 07 TY NON-HIS informa informa informa informa 2017 PANIC tion in tion in tion in tion in 1:00 PM source source source source data data data data KIT No No No No Jun 07 EXPIRAT 017 informa informa informa informa 2017 ION tion in tion in tion in tion in 1:00 PM DATE source source source source data data data data SYMPTOM NO No No No No Jun 07 S informa informa informa informa 2017 tion in tion in tion in tion in 1:00 PM source source source source data data data data REASON REVISIT No No No No Jun 07 FOR /ANNUAL informa informa informa informa 2017 REQUEST FAMILY tion in tion in tion in tion in 1:00 PM source source source source PLANNIN data data data data G VISIT SPECIME URINE No No No No Jun 07 N informa informa informa informa 2017 SOURCE tion in tion in tion in tion in 1:00 PM source source source source data data data data PREGNAN NO No No No No Jun 07 T informa informa informa informa 2017 tion in tion in tion in tion in 1:00 PM source source source source data data data data CHART [id number] No No No No Jun 07 NUMBER 35 informa informa informa informa 2017 tion in tion in tion in tion in 1:00 PM source source source source data data data data Chlamyd Pending No No No No Jun 07 ia informa informa informa informa 2017 trachom tion in tion in tion in tion in 1:00 PM atis source source source source rRNA data data data data [Presen ce] in Unspeci fied specime n by Probe & target amplifi cation method Neisser Pending No No No \.br\Th Jun 07 ia informa informa informa is 2017 gonorrh tion in tion in tion in report 1:00 PM oeae source source source contain rRNA data data data s [Presen patient ce] in Unspeci informa fied tion specime that n by must be Probe & target protect ed in amplifi accorda cation nce method with the Health Insuran ce Portabi lity and Account ability Act. Treponema pallidum IgG Ab [Presence] in Serum by Immunoassay Observa Value Referen Units Interpr Notes Date tion ce etation Range COLLECT S.JOSE No No No No Dec 16 OR , RN informa informa informa informa 2017 tion in tion in tion in tion in 4:00 PM source source source source data data data data ETHNICI WHITE No No No No Dec 16 TY NON-HIS informa informa informa informa 2017 PANIC tion in tion in tion in tion in 4:00 PM source source source source data data data data PURPOSE ROUTINE No No No No Dec 16 OF informa informa informa informa 2017 EXAM tion in tion in tion in tion in 4:00 PM source source source source data data data data SPECIME BLOOD No No No No Dec 16 N informa informa informa informa 2017 SOURCE tion in tion in tion in tion in 4:00 PM source source source source data data data data CHART N/A No No No No Dec 16 NUMBER informa informa informa informa 2017 tion in tion in tion in tion in 4:00 PM source source source source data data data data Trepone NON-SHERON No No No METHOD Dec [address] informa informa informa OF 2017 pallidu tion in tion in tion in ANALYSI 4:00 PM m IgG source source source S: Ab data data data EIANORM [Presen AL ce] in RANGE: Serum NON-SHERON by CTIVE\. Immunoa br\This ssay report contain s patient informa tion that must be protect ed in accorda nce with the Health Insuran ce Portabi lity and Account ability Act. CHLAMYDIA AND GONORRHEA TESTING Observa Value Referen Units Interpr Notes Date tion ce etation Range COLLECT S.JOSE No No No No Dec 16 OR , RN informa informa informa informa 2017 tion in tion in tion in tion in 4:00 PM source source source source data data data data ETHNICI WHITE, No No No No Dec 16 TY NON-HIS informa informa informa informa 2017 PANIC tion in tion in tion in tion in 4:00 PM source source source source data data data data KIT No No No No Dec 16 EXPIRAT informa informa informa informa 2017 ION tion in tion in tion in tion in 4:00 PM DATE source source source source data data data data SYMPTOM NO No No No No Dec 16 S informa informa informa informa 2017 tion in tion in tion in tion in 4:00 PM source source source source data data data data REASON VOLUNTE No No No No Dec 16 FOR ER/MEDI informa informa informa informa 2017 REQUEST SUE tion in tion in tion in tion in 4:00 PM PROBLEM source source source source data data data data SPECIME URINE No No No No Dec 16 N informa informa informa informa 2017 SOURCE tion in tion in tion in tion in 4:00 PM source source source source data data data data PREGNAN NO No No No No Dec 16 T informa informa informa informa 2017 tion in tion in tion in tion in 4:00 PM source source source source data data data data CHART N/A No No No No Dec 16 NUMBER informa informa informa informa 2017 tion in tion in tion in tion in 4:00 PM source source source source data data data data Chlamyd NEGATIV No No No NEGATIV Dec 16 ia E informa informa informa E 2017 trachom tion in tion in tion in RESULT= 4:00 PM atis source source source WITHIN rRNA data data data NORMAL [Presen ce] in LIMITSP Unspeci OSITIVE fied specime RESULT= n by Probe & ABNORMA target LEQUIVO SUE amplifi RESULT= cation method INDETER MINATEU NSATISF ACTORY RESULT= INVALID Neisser NEGATIV No No No NEGATIV Dec 16 ia E informa informa informa E 2017 gonorrh tion in tion in tion in RESULT= 4:00 PM oeae source source source WITHIN rRNA data data data NORMAL [Presen ce] in LIMITSP Unspeci OSITIVE fied specime RESULT= n by Probe & ABNORMA target LEQUIVO SUE amplifi RESULT= cation method INDETER MINATEU NSATISF ACTORY RESULT= INVALID THE APTIMA COMBO 2 ASSAY IS NOT INTENDE D FOR THE EVALUAT ION OF SUSPECT EDSEXUA L ABUSE OR FOR OTHER MEDICO- LEGAL INDICAT IONS. FOR THOSE PATIENT S FORWHOM A FALSE POSITIV E RESULT MAY HAVE ADVERSE PSYCHO- SOCIAL IMPACT, [facility] MMENDS RETESTI NG.\.br \This report contain s patient informa tion that must be protect ed in accorda nce with the Health Insuran ce Portabi lity and Account ability Act. CHLAMYDIA AND GONORRHEA TESTING Observa Value Referen Units Interpr Notes Date tion ce etation Range COLLECT S.JOSE No No No No Dec 16 OR , RN informa informa informa informa 2017 tion in tion in tion in tion in 4:00 PM source source source source data data data data ETHNICI WHITE, No No No No Dec 16 TY NON-HIS informa informa informa informa 2017 PANIC tion in tion in tion in tion in 4:00 PM source source source source data data data data KIT No No No No Dec 16 EXPIRAT informa informa informa informa 2017 ION tion in tion in tion in tion in 4:00 PM DATE source source source source data data data data SYMPTOM NO No No No No Dec 16 S informa informa informa informa 2017 tion in tion in tion in tion in 4:00 PM source source source source data data data data REASON VOLUNTE No No No No Dec 16 FOR ER/MEDI informa informa informa informa 2017 REQUEST SUE tion in tion in tion in tion in 4:00 PM PROBLEM source source source source data data data data SPECIME URINE No No No No Dec 16 N informa informa informa informa 2017 SOURCE tion in tion in tion in tion in 4:00 PM source source source source data data data data PREGNAN NO No No No No Dec 16 T informa informa informa informa 2017 tion in tion in tion in tion in 4:00 PM source source source source data data data data CHART N/A No No No No Dec 16 NUMBER informa informa informa informa 2017 tion in tion in tion in tion in 4:00 PM source source source source data data data data Chlamyd Pending No No No No Dec 16 ia informa informa informa informa 2017 trachom tion in tion in tion in tion in 4:00 PM atis source source source source rRNA data data data data [Presen ce] in Unspeci fied specime n by Probe & target amplifi cation method Neisser Pending No No No \.br\Th Dec 16 ia informa informa informa is 2017 gonorrh tion in tion in tion in report 4:00 PM oeae source source source contain rRNA data data data s [Presen patient ce] in Unspeci informa fied tion specime that n by must be Probe & target protect ed in amplifi accorda cation nce method with the Health Insuran ce Portabi lity and Account ability Act. Treponema pallidum IgG Ab [Presence] in Serum by Immunoassay Observa Value Referen Units Interpr Notes Date tion ce etation Range COLLECT S.JOSE No No No No Dec 16 OR , RN informa informa informa informa 2017 tion in tion in tion in tion in 4:00 PM source source source source data data data data ETHNICI WHITE No No No No Dec 16 TY NON-HIS informa informa informa informa 2017 PANIC tion in tion in tion in tion in 4:00 PM source source source source data data data data PURPOSE ROUTINE No No No No Dec 16 OF informa informa informa informa 2017 EXAM tion in tion in tion in tion in 4:00 PM source source source source data data data data SPECIME BLOOD No No No No Dec 16 N informa informa informa informa 2017 SOURCE tion in tion in tion in tion in 4:00 PM source source source source data data data data CHART N/A No No No No Dec 16 NUMBER informa informa informa informa 2017 tion in tion in tion in tion in 4:00 PM source source source source data data data data Trepone Pending No No No \.br\Dec 16 ma informa informa informa is 2017 pallidu tion in tion in tion in report 4:00 PM m IgG source source source contain Ab data data data s [Presen patient ce] in Serum informa by michell Immunoa that ssay must be protect ed in accorda nce with the Health Insuran ce Portabi lity and Account ability Act. 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 tion in tion in tion in tion in 10:30 source source source source AM data data data data ETHNICI WHITE, No No No No Jun 09 TY NON-HIS informa informa informa informa 2016 PANIC tion in tion in tion in tion in 10:30 source source source source AM data data data data KIT 1-31-20 No No No No Jun 09 EXPIRAT 17 informa informa informa informa 2016 ION tion in tion in tion in tion in 10:30 DATE source source source source AM data data data data SYMPTOM NO No No No No Jun 09 S informa informa informa informa 2016 tion in tion in tion in tion in 10:30 source source source source AM data data data data REASON REVISIT No No No No Jun 09 FOR /ANNUAL informa informa informa informa 2016 REQUEST FAMILY tion in tion in tion in tion in 10:30 source source source source AM PLANNIN data data data data G VISIT SPECIME URINE No No No No Jun 09 N informa informa informa informa 2016 SOURCE tion in tion in tion in tion in 10:30 source source source source AM data data data data PREGNAN NO No No No No Jun 09 T informa informa informa informa 2016 tion in tion in tion in tion in 10:30 source source source source AM data data data data CHART NA No No No No Jun 09 NUMBER informa informa informa informa 2016 tion in tion in tion in tion in 10:30 source source source source AM data data data data Chlamyd NEGATIV No No No NEGATIV Jun 09 ia E informa informa informa E 2016 trachom tion in tion in tion in RESULT= 10:30 atis source source source WITHIN AM rRNA data data data NORMAL [Presen ce] in LIMITSP Unspeci OSITIVE fied specime RESULT= n by Probe & ABNORMA target LEQUIVO SUE amplifi RESULT= cation method INDETER MINATEU NSATISF ACTORY RESULT= INVALID Neisser NEGATIV No No No NEGATIV Jun 09 ia E informa informa informa E 2016 gonorrh tion in tion in tion in RESULT= 10:30 oeae source source source WITHIN AM rRNA data data data NORMAL [Presen ce] in LIMITSP Unspeci OSITIVE fied specime RESULT= n by Probe & ABNORMA target LEQUIVO SUE amplifi RESULT= cation method INDETER MINATEU NSATISF ACTORY RESULT= INVALID THE APTIMA COMBO 2 ASSAY IS NOT INTENDE D FOR THE EVALUAT ION OF SUSPECT EDSEXUA L ABUSE OR FOR OTHER MEDICO- LEGAL INDICAT IONS. FOR THOSE PATIENT S FORWHOM A FALSE POSITIV E RESULT MAY HAVE ADVERSE PSYCHO- SOCIAL IMPACT, [facility] MMENDS RETESTI NG.\.br \This report contain s patient informa tion that must be protect ed in accorda nce with the Health Insuran ce Portabi lity and Account ability Act. 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 tion in tion in tion in tion in 10:30 source source source source AM data data data data ETHNICI WHITE, No No No No Jun 09 TY NON-HIS informa informa informa informa 2016 PANIC tion in tion in tion in tion in 10:30 source source source source AM data data data data KIT 1--20 No No No No Jun 09 EXPIRAT 17 informa informa informa informa 2016 ION tion in tion in tion in tion in 10:30 DATE source source source source AM data data data data SYMPTOM NO No No No No Jun 09 S informa informa informa informa 2016 tion in tion in tion in tion in 10:30 source source source source AM data data data data REASON REVISIT No No No No Jun 09 FOR /ANNUAL informa informa informa informa 2016 REQUEST FAMILY tion in tion in tion in tion in 10:30 source source source source AM PLANNIN data data data data G VISIT SPECIME URINE No No No No Jun 09 N informa informa informa informa 2016 SOURCE tion in tion in tion in tion in 10:30 source source source source AM data data data data PREGNAN NO No No No No Jun 09 T informa informa informa informa 2016 tion in tion in tion in tion in 10:30 source source source source AM data data data data CHART NA No No No No Jun 09 NUMBER informa informa informa informa 2016 tion in tion in tion in tion in 10:30 source source source source AM data data data data Chlamyd Pending No No No No Jun 09 ia informa informa informa informa 2016 trachom tion in tion in tion in tion in 10:30 atis source source source source AM rRNA data data data data [Presen ce] in Unspeci fied specime n by Probe & target amplifi cation method Neisser Pending No No No \.br\Jun 09 ia informa informa informa is 2016 gonorrh tion in tion in tion in report 10:30 oeae source source source contain AM rRNA data data data s [Presen patient ce] in Unspeci informa fied tion specime that n by must be Probe & target protect ed in amplifi accorda cation nce method with the Health Insuran ce Portabi lity and Account ability Act. CHLAMYDIA AND GONORRHEA TESTING Observa Value Referen Units Interpr Notes Date tion ce etation Range COLLECT PT/M. No No No No Jun 10 OR MILLS informa informa informa informa 2015 DIDACTIC INSTRUCTOR tion in tion in tion in tion in 2:35 PM source source source source data data data data ETHNICI WHITE, No No No No Jun 10 TY NON-HIS informa informa informa informa 2015 PANIC tion in tion in tion in tion in 2:35 PM source source source source data data data data KIT 10-31-1 No No No No Jun 10 EXPIRAT 5 informa informa informa informa 2015 ION tion in tion in tion in tion in 2:35 PM DATE source source source source data data data data SYMPTOM NO No No No No Jun 10 S informa informa informa informa 2015 tion in tion in tion in tion in 2:35 PM source source source source data data data data REASON INITIAL No No No No Jun 10 FOR FAMILY informa informa informa informa 2015 REQUEST tion in tion in tion in tion in 2:35 PM PLANNIN source source source source G VISIT data data data data SPECIME URINE No No No No Jun 10 N informa informa informa informa 2015 SOURCE tion in tion in tion in tion in 2:35 PM source source source source data data data data PREGNAN NO No No No No Jun 10 T informa informa informa informa 2015 tion in tion in tion in tion in 2:35 PM source source source source data data data data CHART NA No No No No Jun 10 NUMBER informa informa informa informa 2015 tion in tion in tion in tion in 2:35 PM source source source source data data data data Chlamyd NEGATIV No No No NEGATIV Jun 10 ia E informa informa informa E 2015 trachom tion in tion in tion in RESULT= 2:35 PM atis source source source WITHIN rRNA data data data NORMAL [Presen ce] in LIMITSP Unspeci OSITIVE fied specime RESULT= n by Probe & ABNORMA target LEQUIVO SUE amplifi RESULT= cation method INDETER MINATEU NSATISF ACTORY RESULT= INVALID Neisser NEGATIV No No No NEGATIV Jun 10 ia E informa informa informa E 2015 gonorrh tion in tion in tion in RESULT= 2:35 PM oeae source source source WITHIN rRNA data data data NORMAL [Presen ce] in LIMITSP Unspeci OSITIVE fied specime RESULT= n by Probe & ABNORMA target LEQUIVO SUE amplifi RESULT= cation method INDETER MINATEU NSATISF ACTORY RESULT= INVALID THE APTIMA COMBO 2 ASSAY IS NOT INTENDE D FOR THE EVALUAT ION OF SUSPECT EDSEXUA L ABUSE OR FOR OTHER MEDICO- LEGAL INDICAT IONS. FOR THOSE PATIENT S FORWHOM A FALSE POSITIV E RESULT MAY HAVE ADVERSE PSYCHO- SOCIAL IMPACT, [facility] MMENDS RETESTI NG.\.br \This report contain s patient informa tion that must be protect ed in accorda nce with the Health Insuran ce Portabi lity and Account ability Act. CHLAMYDIA AND GONORRHEA TESTING Observa Value Referen Units Interpr Notes Date tion ce etation Range COLLECT PT/M. No No No No Jun 10 OR MILLS informa informa informa informa 2014 DIDACTIC INSTRUCTOR tion in tion in tion in tion in 2:35 PM source source source source data data data data ETHNICI WHITE, No No No No Jun 10 TY NON-HIS informa informa informa informa 2014 PANIC tion in tion in tion in tion in 2:35 PM source source source source data data data data KIT 10-31-1 No No No No Jun 10 EXPIRAT 5 informa informa informa informa 2015 ION tion in tion in tion in tion in 2:35 PM DATE source source source source data data data data SYMPTOM NO No No No No Jun 10 S informa informa informa informa 2015 tion in tion in tion in tion in 2:35 PM source source source source data data data data REASON INITIAL No No No No Jun 10 FOR FAMILY informa informa informa informa 2015 REQUEST tion in tion in tion in tion in 2:35 PM PLANNIN source source source source G VISIT data data data data SPECIME URINE No No No No Jun 10 N informa informa informa informa 2015 SOURCE tion in tion in tion in tion in 2:35 PM source source source source data data data data PREGNAN NO No No No No Jun 10 T informa informa informa informa 2015 tion in tion in tion in tion in 2:35 PM source source source source data data data data CHART NA No No No No Jun 10 NUMBER informa informa informa informa 2015 tion in tion in tion in tion in 2:35 PM source source source source data data data data Chlamyd Pending No No No No Jun 10 ia informa informa informa informa 2015 trachom tion in tion in tion in tion in 2:35 PM atis source source source source rRNA data data data data [Presen ce] in Unspeci fied specime n by Probe & target amplifi cation method Neisser Pending No No No \.br\Jun 10 ia informa informa informa is 2015 gonorrh tion in tion in tion in report 2:35 PM oeae source source source contain rRNA data data data s [Presen patient ce] in Unspeci informa fied tion specime that n by must be Probe & target protect ed in amplifi accorda cation nce method with the Health Insuran ce Portabi lity and Account ability Act.
--- OUTSIDE RECORDS SUMMARY | 2017-09-01 10:25 | External Medical Summary Rpt ---
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 CHLAMYDIA AND GONORRHEA TESTING Observa Value Referen Units Interpr Notes Date tion ce etation Range COLLECT PT/J No No No No Jun 09 OR WEINER informa informa informa informa 2016 LINE ORDERING CLINICIAN tion in tion in tion in tion [...] OR MILLS informa informa informa informa 2015 LINE ORDERING CLINICIAN tion in tion in tion in tion [...] MAY HAVE ADVERSE PSYCHO- SOCIAL IMPACT, [facility] NG.\.br \This report contain s patient informa tion that must be protect ed in accorda nce with the Health Insuran ce Portabi lity and Account ability Act. CHLAMYDIA AND GONORRHEA TESTING Observa Value Referen Units Interpr Notes Date tion ce etation Range COLLECT PT/M. No No No No Jun 10 OR MILLS informa informa informa informa 2014 LINE ORDERING CLINICIAN tion in tion in tion in tion [...]
== END 2017-08-23 21:02 | disposition home or self-care (01) ==
LOC: ER 18:34
PROVIDERS: General Practice
DX: N30.00 Acute cystitis without hematuria (principal); R20.2 Paresthesia of skin; J45.909 Unspecified asthma, uncomplicated; F41.9 Anxiety disorder, unspecified; Z88.0 Allergy status to penicillin; Z88.8 Allergy status to other drugs, medicaments and biological substances

== ENCOUNTER → 2017-08-28 | Day surgery (SDC) | payer MEDICAID ==
[~2017-08-28] VITALS: Ht 165.1 cm; Wt 104.3 kg
[~2017-08-28] MED LIST: ACYCLOVIR 400M400 MG PO; AZITHROMYCIN250 MG PO; BACITRACIN TP; BENZONATATE200 MG PO; CEPHALEXIN500 M1 PO; CIPRO 500MG TA500 MG PO; CIPROFLOXACIN500 M2 PO; CLARITIN 10MG T10 MG PO; DULERA1 ARO IH; EPIPEN 2-PAK1 MG/ML MR; FLUOXETINE20 MG PO; FLUTICASONE PROP 50 IH; MONTELUKAST SOD10 MG PO; OMEPRAZOLE20 MG PO; OMEPRAZOLE40 MG PO; PREDNISONE 20MG20 MG PO; SINGULAIR5 MG PO; TESSALON PERLE100 MG PO; TRAZODONE 50MG50 MG PO; VENTOLIN H0.09 MG/Ac IH; VOLTAREN75 MG PO; ZITHROMAX Z PA250 MG PO
--- NOTE | 2017-08-28 12:21 | Emergency Room Report ---
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 N Clinical Suspician of Infection? Y Mental Status: 1 - Regular (Normal Baseline) Sepsis Risk:Low Sepsis Risk Have you (or family members/close friends) recently traveled outside the [place]? N If Yes, where/when: Have you had exposure to infectious disease within the past month? N TB? Other? Specify: 22 years old white female who believes that the piece of hot dog stuck in the back of her throat she has unable to swallow water and she is spitting up her saliva. She is in no respiratory distress she has no wheezing. Source patient, RN notes reviewed Exam Limitations no limitations ALLERGIES Coded Allergies: Penicillins (12/24/16) topiramate (From TOPAMAX) (12/24/16) Home Medications Active Scripts Prednisone (Prednisone 20MG) 20 MG PO BID #10 TAB Prov: 12/24/16 BENZONATATE (Benzonatate) 100 MG PO TID #15 CAP Prov: 12/24/16 Ciprofloxacin HCl (Cipro 500MG TAB) 500 MG PO BID #14 TAB Prov: 08/23/17 Reported Medications Albuterol Sulfate (Ventolin Hfa) 0.09 MG IH Q4HP PRN BREATHING #18 History Medical History General CAD? No Angina: No [place]: No Hypertension? No Hyperlipidemia? No CHF? No DVT? No PE? No COPD? No Asthma? Yes Anemia? No GERD? No Gastric ulcers? No GI Bleed? No Hernia? No Thyroid Problems? No Hypothyroidism? No CVA? No Seizures? No Diabetes? No Renal Insuffiency? No End Stage Renal Disease? No UTI? Yes Stones? No BPH? No GB Disease: No Nephritic Syndrome? No Asplenia? No Hepatitis? No Sickle Cell Disease? No Arthritis? No Migraines? No Cataracts? No Glaucoma? No MRSA? No HIV? No TB? No Anxiety? Yes Depression? No Cancer? No More? 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 Respiratory no symptoms reported Cardiovascular no symptoms reported Gastrointestinal see HPI (dysphagia) Genitourinary no symptoms reported. Musculoskeletal no symptoms reported Skin no symptoms reported Psychiatric/Neurological no symptoms reported Physical Exam Vital Signs Vital Signs Date Time Temp Pulse Resp B/P Pulse O2 O2 Flow FiO2 Ox Delivery Rate 08/28 1247 97.2 90 18 114/60 98 08/28 1150 97.2 90 18 115/62 98 - WBC >12,000 or <4,000 or 10% bands? 2 or more SIRS Criteria Met? B/P:115/62 MAP:79 Creatinine >2.0? UA output<0.5ml/kg/hr for 2 hrs? Platelet count >100,000? Lactate >2.0mmol/1? INR >1.2 or PTT > than 60 sec? Evidence of Organ Dysfunction? Provider documented clinical suspician of infection? Y Sepsis Criteria Count: 1 Sepsis Risk: Low Sepsis Risk General Appearance normal appearance, WD/WN Eye Exam - bilateral eye normal exam, bilateral eye PERRL, bilateral eye EOMI Ear, Nose, Throat hearing grossly normal, normal ENT inspection Neck normal inspection, non-tender, supple, full range of motion Respiratory Status Yes: trachea midline, chest symmetrical, non tender chest. No: respiratory distress. Lung Sounds bilateral: normal breath sounds, lungs clear. 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 No Results/Orders Current Medication Orders Sig/Sandra Start time Last Medication Dose Route Stop Time Status Admin Glucagon 1 MG ONCE ONE 08/28 1230 DC 08/28 IM 08/28 1231 1232 Orders Procedure Date/time Status NECK SOFT TISSUE 08/28 1156 Active XRAY/CT/US XRAY/CT/US XRAY chest, x-ray of the soft tissue neck and chest x-ray revealed no radiopaque foreign body visible. Departure Departure Time of Disposition 1238 Disposition Still a Patient Clinical Impression Primary Impression: Dysphagia Condition STABLE Referrals EMIR KOLB Additional Instructions After giving her glucagon and cxr she was not better. I called and spoke with Dr waller who will come and assess in the ED for a possible EGD. Dr Waller and anesthesia presented to the ED and took patient to the OR, Discharge Counseling Counseled pt/family regarding diagnosis, test results, follow up needs ED Critical Care Critical Care No If Critical Care minutes are documented, the time involved in the performance of seperately reportable procedures was not counted toward critical care time documented. I directly delivered medical care to this critically ill and/or injured patient. Timely evaluation and treatment was necessary to address the significant organ system(s) dysfunction present in this patient. at [id number]
--- NOTE | 2017-08-28 14:01 | RADIOLOGY REPORT PS360 ---
CHEST(2 VIEWS-NOT PORTABLE) INDICATION: Possible food bolus caught in throat COMPARISON: PA and lateral chest 12/24/2016 FINDINGS: The lung elaine are well expanded and appear clear of infiltrate. The cardiomediastinal silhouette and vascularity are normal. The costophrenic angles are clear. The bony thorax is normal. IMPRESSION: Normal chest.
--- NOTE | 2017-08-28 14:22 | RADIOLOGY REPORT PS360 ---
NECK SOFT TISSUE COMPARISON: CT scan cervical spine 02/03/2015 HISTORY: Possible food bolus caught in throat TECHNIQUE: AP and lateral soft tissue views of the neck FINDINGS: There is some straightening of the cervical spine with C1-C7 appear intact. The oral pharyngeal airway and upper trachea appear normal. The prevertebral soft tissues are normal. There Is no definite foreign body seen in the airway. IMPRESSION: Normal soft tissue views of the neck
[2017-08-28 15:32] VITALS: BP 121/74
--- OUTSIDE RECORDS SUMMARY | 2017-09-02 18:55 | External Medical Summary Rpt | CCD ---
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 Name Role Phone [employer] Unavailable Unavailable INC, [employer] AHMED ADN, AHMED ADN Unavailable Unavailable AHMED ADN, AHMED ADN Unavailable Unavailable [facility] Unavailable Unavailable [facility], [facility] ALLRAN JR KASSANDRA, ALLRAN Unavailable Unavailable JR KASSANDRA ANGOLAN AMBULETT & Unavailable Unavailable AMBULANC, ANGOLAN AMBULETT & AMBULANC ANGOLAN AMBULETT & Unavailable Unavailable AMBULANC, ANGOLAN AMBULETT & AMBULANC LUIS FERNANDO LES, LUIS FERNANDO Unavailable Unavailable LES LUIS FERNANDO LES, LUIS FERNANDO Unavailable Unavailable LES [facility] Unavailable Unavailable [facility], [facility] Unavailable Unavailable MEDICAL GROUP, [facility] BEINEKE NANI, BEINEKE Unavailable Unavailable NANI CURRAN AURORA, CURRAN Unavailable Unavailable AURORA BESSON, MANE A, Unavailable Unavailable BESSON, MANE A [employer] Unavailable Unavailable INC., [employer] LEZAMA, LEZAMA Unavailable Unavailable LEZAMA LASHON, LEAZMA LASHON Unavailable Unavailable [facility] Unavailable Unavailable [facility], [facility] PH[facility]ICIAN Unavailable Unavailable PRACTICE L, [facility] [employer] Unavailable Unavailable CORBIN JAM, CORBIN JAM Unavailable Unavailable [facility], Unavailable Unavailable [facility] SARAH, Unavailable Unavailable [facility] SARAH BUTROS MARISEL, BUTROS Unavailable Unavailable MARISEL [facility], Unavailable Unavailable [facility] PIERCE MARIANA, PIERCE Unavailable Unavailable MARIANA PIERCE MARIANA, PIERCE Unavailable Unavailable MARIANA [facility] Unavailable Unavailable [facility], [facility] Unavailable Unavailable ASSOC, [facility] ANNE ALDEN, ANNE Unavailable Unavailable ALDEN CHATTHA SHANNON, CHATTHA Unavailable Unavailable SHANNON [facility] Unavailable Unavailable [place] WAI BARNETT, WAI Unavailable [...] [facility] MCINTYRE, MCINTYRE Unavailable Unavailable [facility] Unavailable Unavailable GROUP PS, [facility] Unavailable Unavailable [facility], [facility], Unavailable Unavailable [facility] Unavailable Unavailable [facility], [facility] Unavailable Unavailable [facility], [facility] Unavailable Unavailable [facility] Unavailable Unavailable [facility]INGS, [facility], Unavailable Unavailable [facility] ADLER TONYA, ADLER Unavailable Unavailable TONYA [...] B MAUL PRANAV, MAUL PRANAV Unavailable Unavailable [facility] Unavailable Unavailable ASSOCIAT, [facility] MOODY LOPEZ JR Unavailable Unavailable F, JOHN RODRIGUEZ, MOODY F [facility] Unavailable Unavailable CARE [facility], [facility], HIGH SPEED OPERATOR [facility] Unavailable Unavailable CO [facility], [facility] MAYBERRY DARRION, MAYBERRY DARRION Unavailable Unavailable MAYBERRY DARRION, MAYBERRY DARRION Unavailable Unavailable [facility], Unavailable Unavailable [facility] HERBERTH EDW, HERBERTH Unavailable Unavailable EDW [facility]BERTH EDW, HERBERTH Unavailable Unavailable EDW MD TSEPHEN CORTEZ, DIEGO, Unavailable Unavailable MD [facility], Unavailable Unavailable [facility] Unavailable Unavailable AMBULANCE SE, [facility] SE [facility] Unavailable Unavailable AMBULANCE SE, [facility] SE [facility] Unavailable Unavailable URGENT TREAT, [facility], Unavailable Unavailable PLLC, [facility] SCHULTE CHR, SCHULTE CHR Unavailable Unavailable SCHULTE CHR, [facility] Unavailable Unavailable [facility] Unavailable Unavailable LAB, [facility] PICKLESIMER JR RADAMES, Unavailable Unavailable PICKLESIMER JR RADAMES [facility] Unavailable Unavailable [facility], [facility] PRAKASH MUH, PRAKASH Unavailable Unavailable MUH [...] [facility], Unavailable Unavailable [facility] Unavailable Unavailable EQUIPME, [facility] Unavailable Unavailable EMERGENCY PHYS, [facility] SPIREK ANI, SPIREK Unavailable Unavailable ANI SPIREK ANI, SPIREK Unavailable Unavailable ANI SPIREK, MONROE J, Unavailable Unavailable SPIREK, MONROE J [facility] Unavailable Unavailable [facility], [facility] EVI MAR, EVI Unavailable Unavailable [facility] Unavailable Unavailable [facility], [facility] BROOKS DIOGENES, BROOKS Unavailable Unavailable DIOGENES SWINEY PAT, SWINEY Unavailable Unavailable PAT SWINEY PAT, SWINEY Unavailable Unavailable PAT TANOUS, JR EDW, Unavailable Unavailable TANOUS, JR EDW TANOUS, JR EDW, Unavailable Unavailable TANOUS, JR EDW ELADIO, ELADIO Unavailable Unavailable MONTILLA MOL, MONTILLA MOL Unavailable Unavailable [facility] Unavailable Unavailable LLC, [facility] MARYANN ALICIA, MARYANN Unavailable Unavailable ALICIA MARYANN ALICIA, MARYANN Unavailable Unavailable [facility], Unavailable Unavailable [facility] Unavailable [facility] VILLAFLOR OSI, Unavailable Unavailable VILLAFLOR OSI VILLAFLOR OSI, Unavailable Unavailable VILLAFLOR OSI VORKPOR EMIGDIO, VORKPOR Unavailable Unavailable EMIGDIO VORKPOR EMIGDIO, VORKPOR Unavailable Unavailable EMIGDIO [facility] Unavailable Unavailable #[id number], [id number] # Unavailable Unavailable [id number], [facility] # [id number] [facility] Unavailable Unavailable DEPT KIERA, [facility] Un[facility] DEPT KIERA, [facility] DE[facility] KIERA YONGBANG ALB, [...] ASTHMA NONSPECIFIC ASSOC OF TH SKIN ERUPTION [id number] ADVERS EFF 08-01-2017 [facility] BIO ASSOC OF SUBSTANCES INIT ENC [id number] ANAPHYLACTI 08-01-2017 [facility] C SHOCK ASTHMA UNSPECIFIED ASSOC OF TH INITIAL ENCOUNTER J029 ACUTE 06-27-2017 [facility] PHARYNGITIS CLINIC UNSPECIFIED J4521 MILD 06-27-2017 [facility] INTERMITTEN CLINIC T ASTHMA WITH ACUTE EXACERBATIO N R198 OTH SPEC SX 06-13-2017 [facility] SIGNS [facility] INVLV THE TONEY DIGESTV SYS & ABD [id number] ENCOUNTER 06-07-2017 [facility] C[facility] 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 GENERAL RTN HLTH DEPT W/O [...] TEST RESULT KIERA NEGATIVE R5383 OTHER 06-06-2017 [facility] FATIGUE [facility] TONEY Z0000 ENCOUNTER 06-06-2017 [facility] GEN ADULT HEALTH MED EXAM TONEY W/O ABNORMAL FIND K5900 CONSTIPATIO 05-16-2017 [facility] [place] RADIOLOGY UNSPECIFIED R109 UNSPECIFIED 05-16-2017 [facility] R197 DIARRHEA 05-16-2017 [facility] [place] UNSPECIFIED RADIOLOGY R8290 UNSPECIFIED 05-16-2017 LAB [facility] ABNORMAL ELIZABETH FINDINGS IN HOLDINGS URINE [id number] TOX EFF 02-08-2017 [facility] UNS SOURCE GROUP ACC INITIAL ENC V04125 MIGRAINE 02-07-2017 [facility] UNS NOT EMERGENCY INTRACT W/O PHYS PSC STATUS MIGRAINOSUS N21800 UNSPECIFIED 02-07-2017 [facility] ASTHMA HEALTH UNCOMPLICAT TONEY ED K589 IRRITABLE 02-07-2017 [facility] BOWEL [facility]ALTH SYNDROME TONEY WITHOUT DIARRHEA M4606 SPINAL 02-07-2017 NONA ENTHESOPATH Y LUMBAR REGION M545 LOW BACK 02-07-2017 NONA PAIN [id number] MUSCLE 02-07-2017 NONA SPASM OF BACK M9903 SEGMENTAL & 02-07-2017 NONA SOMATIC DYSFUNCTION OF LUMBAR REGION M9904 SEGMENTAL & 02-07-2017 NONA SOMATIC DYSFUNCTION OF SACRAL REGION R1110 VOMITING 02-07-2017 BRUNO FAYETTE UNSPECIFIED URBAN COGOVT R410 DISORIENTAT 02-07-2017 BRUNO FAYETTE ION URBAN UNSPECIFIED COGOVT R4182 ALTERED 02-07-2017 [facility] STATUS ASSOC UNSPECIFIED R51 HEADACHE 02-07-2017 BRUNO FAYETTE URBAN COGOVT R569 UNSPECIFIED 02-07-2017 [facility] HEALTH CONVULSIONS TONEY [id number] STRAIN 02-07-2017 NONA MUSCLE FASCIA & TENDON LOW BACK INITIAL Z833 FAMILY 02-07-2017 [facility] HISTORY OF HEALTH DIABETES TONEY MELLITUS Z880 ALLERGY 02-07-2017 [facility] STATUS TO HEALTH PENICILLIN TONEY Z888 ALLERGY 02-07-2017 [facility] STATUS OT HEALTH RX MEDS & TONEY BIOLOG SUBSTANC STS J101 FLU D/T OTH 01-17-2017 [facility] ID FLU CLINIC VIRUS OTH RESP MANIFESTATI ONS R05 COUGH 01-17-2017 [facility] J209 ACUTE 12-24-2016 [facility] BRONCHITIS [facility] UNSPECIFIED INC J40 BRONCHITIS 12-24-2016 [facility], SPECIFIED PLLC ACUTE OR CHRONIC Z7689 PERSONS 12-15-2016 [facility] ENCOUNTER [facility] SR[facility] HLTH DEPT OTH KIERA CIRCUMSTANC ES J020 STREPTOCOCC 12-10-2016 [facility] AL CLINIC PHARYNGITIS G76958 PAIN IN 10-23-2016 [facility] N EMERGENCY SHOULDER PHYS X31428 PAIN IN 10-23-2016 [facility] [place] RIGHT ELBOW RADIOLOGY A11829 PAIN IN 10-23-2016 [facility] [place] RIGHT KNEE RADIOLOGY R0781 PLEURODYNIA 10-23-2016 [facility] R0789 OTHER CHEST 10-23-2016 [facility] [place] PAIN RADIOLOGY Q72416B ABRASION OF 10-23-2016 [facility] N EMERGENCY ELBOW PHYS INITIAL ENCOUNTER [id number] ABRASION 10-23-2016 [facility] KNEE N EMERGENCY INITIAL PHYS ENCOUNTER G25281 OTHER LONG 10-23-2016 [place] TERM COMMUNITY CURRENT [...] AGE R040 EPISTAXIS 06-07-2016 [facility] [place] RADIOLOGY [id number] CONTUSION 06-07-2016 [facility] N EMERGENCY [...] LAB [facility] ELIZABETH HOLDINGS K219 GASTRO-ESOP 04-28-2016 [facility] REFLUX ANESTHESIA DISEASE GROUP PS WITHOUT ESOPHAGITIS A0839 OTHER VIRAL 01-15-2016 [facility] ENTERITIS [facility] URGENT TREAT J4530 MILD 01-15-2016 [facility] ASTHMA URGENT UNCOMPLICAT TREAT ED R87034 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[facility] NICOTINE HLTH DEPT DEPENDENCE KIERA J028 ACUTE 11-24-2015 [facility] PHARYNGITIS [facility] DUE TO URGENT OTHER SPEC TREAT ORGANISMS J4522 MILD 11-24-2015 [facility] T ASTHMA URGENT WITH STATUS TREAT ASTHMATICUS R062 WHEEZING 11-24-2015 [facility] URGENT TREAT R102 PELVIC AND 10-17-2015 VORKPOR EMIGDIO PERINEAL PAIN D529 FOLATE 09-10-2015 [facility] ANEMIA HLTH DEPT UNSPECIFIED KIERA Z23 ENCOUNTER 09-10-2015 [facility] FOR DISTRICT IMMUNIZATIO HLTH DEPT N KIERA R1310 DYSPHAGIA 09-05-2015 EAR, NOSE UNSPECIFIED AND THROAT SPECIAL R1313 DYSPHAGIA 09-01-2015 [facility] PHASE URGENT TREAT 5589 OTH&UNSPEC 06-14-2015 RANI BEAL NONINFECTIO US GASTROENTER ITIS&COLITI S 00666 NAUSEA WITH 06-14-2015 [facility] [place] VOMITING RADIOLOGY 14464 ABDOMINAL 06-14-2015 RANI BEAL PAIN RIGHT LOWER QUADRANT V2549 SURVEILLANC 06-10-2015 [facility] E OTH PREV DISTRICT PRSC [facility] DEPT CONTRACEPT KIERA METHOD V2689 OTHER 06-10-2015 [facility] SPECIFIED DISTRICT PROCREATIVE [facility] DEPT MANAGEMENT KIERA 38977 ASTHMA, 05-08-2015 [facility] UNSPECIFIED [facility] UNSPECIFIED STATUS 76614 UNSPECIFIED 05-08-2015 [facility] SITE OF PHYSICIANS, ANKLE PLLC SPRAIN AND STRAIN 2299 BENIGN 05-06-2015 [place] NEOPLASM OF [facility] HOSPITAL UNSPECIFIED SITE 5990 URINARY 05-06-2015 SWINEY PAT TRACT INFECTION SITE NOT SPECIFIED 6202 OTHER AND 05-06-2015 SW[facility] PAT UNSPECIFIED OVARIAN CYST 41698 ABDOMINAL 05-06-2015 [place] PAIN, [facility] UNSPECIFIED HOSPITAL SITE 7919 OTHER 05-06-2015 [place] NONSPECIFIC COMMUNITY FINDING HOSPITAL EXAMINATION OF URINE V140 PERSONAL 05-06-2015 [place] HISTORY OF COMMUNITY ALLERGY TO HOSPITAL PENICILLIN V1582 PERS HX 05-06-2015 [place] TOBACCO USE [facility]ITY PRESENTING [facility]OSPITAL HAZARDS HEALTH 77236 PAIN IN 02-22-2015 [facility] [place] JOINT RADIOLOGY PELVIC REGION AND THIGH 72521 CHEST PAIN 02-22-2015 [facility] UNSPECIFIED [facility] AMBULANCE SE 8470 NECK SPRAIN 02-22-2015 [facility] EDW AND STRAIN 8472 LUMBAR 02-22-2015 [facility] EDW SPRAIN AND STRAIN 9221 CONTUSION 02-22-2015 [facility] EDW OF CHEST WALL 9222 CONTUSION 02-22-2015 [facility] EDW OF ABDOMINAL WALL 86991 INJURY OF 02-22-2015 [facility] [place] FACE AND RADIOLOGY NECK OTHER AND UNSPECIFIED 57004 OTHER 02-22-2015 [facility] [place] INJURY OF RADIOLOGY OTHER SITES OF TRUNK 3688 OTHER 02-03-2015 [facility] SPECIFIED MEDICAL VISUAL IMAGING ASS DISTURBANCE S 7231 CERVICALGIA 02-03-2015 [facility] 6259 UNSPEC 12-19-2014 [facility] [place] SYMPTOM RADIOLOGY ASSOC W/FEMALE GENITAL ORGANS 02440 ABDOMINAL 12-19-2014 [place] TENDERNESS [facility] RIGHT LOWER HOSPITAL QUADRANT V1329 PERSONAL HX 12-19-2014 [facility]&OBST ETRIC D/O 7804 DIZZINESS 12-11-2014 [facility] AND CLINIC GIDDINESS 36376 ACUTE 12-03-2014 IN[facility] SEROUS CHAD OTITIS MEDIA 4770 ALLERGIC 12-03-2014 INGE RHINITIS CHAD DUE TO POLLEN 4778 ALLERGIC 12-03-2014 INGE RHINITIS CHAD DUE TO OTHER ALLERGEN 63198 EXTRINSIC 12-03-2014 INGE ASTHMA, CHAD WITH EXACERBATIO N 0088 INTESTINAL 11-01-2014 HOUSVINH OLIVIER INFECTION DUE TO OTHER ORGANISM NEC 10215 DIARRHEA 11-01-2014 RACHEL SOY 5362 PERSISTENT 10-31-2014 KABA SATYA VOMITING 14366 SHORTNESS 10-27-2014 [place] OF BREATH [facility]ICAL IMAGING ASS 23053 ASTHMA 10-24-2014 [facility] UNSPECIFIED CLINIC WITH EXACERBATIO N 31451 UNSPECIFIED 10-23-2014 [facility] ADULT SLEEP PRIMARY DISTURBANCE CARE CLI 02039 INSOMNIA 10-23-2014 MEANS ADULT UNSPECIFIED PRIMARY CARE CLI 3829 UNSPECIFIED 10-15-2014 [facility] OTITIS ELIZABETH MEDIA HOLDINGS 462 ACUTE 10-15-2014 [facility] PHARYNGITIS [facility] HOLDINGS 92845 GENERALIZED 10-15-2014 [facility] PAIN [facility]IZ[facility] HOLDINGS 0549 HERPES 10-10-2014 [facility] [place] [facility] MENTION OF COMPLICATIO N 0340 STREPTOCOCC 10-09-2014 [facility] AL SORE CLINIC THROAT 66165 UNSPECIFIED 09-30-2014 [facility] INFECTIVE CLINIC OTITIS EXTERNA 7862 COUGH 09-30-2014 [facility] CL[facility] 4779 ALLERGIC 08-22-2014 [facility] ADULT RHINITIS PRIMARY CAUSE CARE CLI UNSPECIFIED 7245 UNSPECIFIED 08-22-2014 MEANS ADULT BACKACHE PRIMARY CARE CLI 7177 CHONDROMALA 08-14-2014 [facility] S SPORT 28154 PAIN IN 08-10-2014 [facility], [place] AUSTEN 38040 PAIN IN 07-30-2014 [place] JOINT, MEDICAL SHOULDER IMAGING ASS REGION 8409 SPRAIN&STRA 07-30-2014 FLAVIO JANA IN UNSPEC SITE SHOULDER&UP PER ARM E9288 OTHER 07-30-2014 FLAVIO JANA ACCIDENT 24106 SPRAIN AND 07-12-2014 SCHULTE CHR STRAIN OF DELTOID OF ANKLE 67676 UNSPECIFIED 06-11-2014 LUIS FERNANDO LES TINNITUS 87657 SUBJECTIVE 06-11-2014 [place] TINNITUS PHYSICIAN PRACTICE L 3899 UNSPECIFIED 06-11-2014 [facility] HEARING PHYSICIAN LOSS PRACTICE L 34286 UNSPECIFIED 06-06-2014 [place] VAGINITIS CLINIC AND VULVOVAGINI TIS 7821 RASH AND 06-06-2014 [place] OTHER CLINIC NONSPECIFIC SKIN ERUPTION 02156 UNSPECIFIED 05-31-2014 [place] OTALGIA CLINIC 10616 PAIN IN 05-31-2014 [place] JOINT, CLINIC ANKLE AND FOOT 54881 OTHER 02-25-2014 INGE CHRONIC CHAD ALLERGIC CONJUNCTIVI TIS 86511 EXTRINSIC 02-25-2014 INGE ASTHMA, CHAD UNSPECIFIED 7840 HEADACHE 02-13-2014 [facility] [place] 4659 ACUTE URIS 02-01-2014 ASTRID JONES OF UNSPECIFIED SITE V202 ROUTINE 01-14-2014 [place] INFANT OR [place] CHILD HEALTH CHECK 18604 WHEEZING 12-20-2013 C[facility] ANIBAL V0481 NEED 12-06-2013 [place] PROPHYLACT [place] C VACCINATION &INOCULATIO N FLU 28178 UNSPECIFIED 11-08-2013 [facility] ACUTE [place] NONSUPPURAT MORENITA OTITIS MEDIA 4772 ALLERGIC 11-05-2013 [facility] RHINITIS CHAD DUE TO ANIMAL HAIR AND DANDER V727 DIAGNOSTIC 11-05-2013 IN[facility] SKIN AND CHAD SENSITIZATI ON TESTS 7295 PAIN IN 10-30-2013 [facility], SOFT HIGH SPEED OPERATOR TISSUES OF [place] [facility] 7823 EDEMA 10-30-2013 [facility], HIGH SPEED OPERATOR [place] [facility] 7881 DYSURIA 10-30-2013 [facility] [place] [place] 9599 INJURY 10-30-2013 HAGENSCHNEI OTHER AND CARLOS LASHON UNSPECIFIED UNSPECIFIED SITE 90599 ACUT 10-11-2013 INEG SUPPRATV CHAD OTITIS MEDIA W/O SPONT RUP EARDRUM V720 EXAMINATION 10-11-2013 DREW OF EYES GRE AND VISION 71502 DISORDERS 10-09-2013 ASTRID NAN OF SOFT TISSUE UNSPECIFIED 4739 UNSPECIFIED 09-20-2013 [facility] SINUSITIS CHAD 12417 EXTRINSIC 09-20-2013 INGE ASTHMA WITH CHAD STATUS ASTHMATICUS 83991 OBESITY, 09-07-2013 [facility] 07685 CHRONIC 09-07-2013 JR TANIA CHOLECYSTIT EDW IS 5758 OTHER 09-07-2013 SIENNA ANT SPECIFIED DISORDER OF GALLBLADDER 5759 UNSPECIFIED 09-04-2013 [place] DISORDER [facility] GALLBLADDER V7284 UNSPECIFIED 09-04-2013 [facility] PRE-OPERATI HOSPITAL VE EXAMINATION 10471 ABDOMINAL 08-08-2013 RUSSEL RHO PAIN RIGHT UPPER QUADRANT 35956 VOMITING 07-28-2013 [facility], ALONE [facility]OS 486 PNEUMONIA, 06-20-2013 HAGENSCHNEI ORGANISM CARLOS LASHON UNSPECIFIED 4660 ACUTE 06-18-2013 PIERCE MARIANA BRONCHITIS 2150 OTH HANK 04-10-2013 ADLER TONYA NEOPLSM CNCTV&OTH SFT TISS HEAD FCE&NCK 00394 NEOPLASMS 04-10-2013 HOWARD JANA UNSPECIFIED NATURE OTH SPECIFIED SITES 06145 ESOPHAGEAL 04-10-2013 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 7822 LOCALIZED 03-13-2013 [facility] SWELLING MASS OR LUMP 7831 ABNORMAL 02-28-2013 [facility] INC, WEIGHT GAIN HIGH SPEED OPERATOR [facility] HOS 7842 SWELLING 02-28-2013 [facility], MASS OR [facility] LUMP IN [facility] HEAD AND HOS NECK V770 SCREENING 02-28-2013 [facility] INC, FOR THYROID HIGH SPEED OPERATOR DISORDER [facility] HOS V771 SCREENING 02-28-2013 [facility] INC, FOR HIGH SPEED OPERATOR DIABETES [facility] MELLITUS HOS 6119 UNSPECIFIED 12-07-2012 MARYANN ALICIA BREAST DISORDER 6262 EXCESSIVE 12-07-2012 MARYANN ALICIA OR FREQUENT MENSTRUATIO N 50724 OTHER 12-07-2012 MARYANN ALICIA MALAISE AND FATIGUE 17011 HEAD 11-08-2012 ANGOLAN INJURY, AMBULETT & UNSPECIFIED AMBULANC 7291 UNSPECIFIED 11-01-2012 AHMED ADN MYALGIA AND MYOSITIS 60738 ABDOMINAL 11-01-2012 AHMED ADN PAIN OTHER SPECIFIED SITE 77468 EOSINOPHILI 09-19-2012 FLOMEN[facility]FT C MANUEL ESOPHAGITIS 2883 EOSINOPHILI 08-28-2012 [facility] HOS[facility] 5368 DYSPEPSIA&O 08-28-2012 [facility] DISORDERS FUNCTION STOMACH 5379 UNSPECIFIED 08-28-2012 [facility] ST[facility] HOSPI AND DUODENUM 5699 UNSPECIFIED 08-28-2012 [facility] DISORDER [facility] OF HOSPI INTESTINE 25709 NAUSEA 08-28-2012 [facility] 77997 ABDOMINAL 08-28-2012 [place] [facility], LEFT SERVICES LOWER QUADRANT 22071 ABDOMINAL 08-28-2012 [facility] HOSPITAL GENERALIZED V643 PROCEDURE 08-27-2012 [facility], NOT CARRIED HIGH SPEED OPERATOR OUT FOR [place] TELLO OTHER HOS REASONS 41815 SWELLING OF 08-25-2012 [facility], LIMB HIGH SPEED OPERATOR [place] [facility] HOS E8809 ACCIDENTAL 08-25-[facility] F[facility] OR RADIOLOGY FROM OTHER ASSOCIAT STAIRS OR STEPS E8889 UNSPECIFIED 08-25-2012 AHMED ADN FALL 4610 ACUTE 08-01-2012 [facility] 60836 OPEN WOUND 03-07-2012 [facility] TELLO LIP WITHOUT HOSPITAL MENTION COMPLICATIO N E8490 PLACE OF 03-07-2012 [place] TELL[facility] OCCURRENCE, HOSPITAL HOME E8888 OTHER FALL 03-07-2012 [facility] 6200 FOLLICULAR 12-27-2011 PER JR CYST OF [place] OVARY 3814 NONSUPPRATV 12-10-2011 JEFE DARRION OTITIS MEDIA NOT SPEC ACUT/CHRON V7231 ROUTINE 11-29-2011 PATHOLOGY & GYNECOLOGIC CYTOLOGY AL LAB EXAMINATION 4619 ACUTE 11-25-2011 JEFE DARRION SINUSITIS, UNSPECIFIED 24866 URINARY 11-25-2011 MAYBERRY DARRION FREQUENCY 6260 ABSENCE OF 10-13-2011 [facility] MENSTRUATIO AMERIC N HOLDINGS 36313 PAIN IN 10-01-2011 JENNERS JOINT, RADIOLOGY UPPER ARM ASSOCIAT 37960 CONTUSION 10-01-2011 [place] TELLO OF [facility]OSPITAL 9593 INJURY 10-01-2011 JENNERS OTHER&UNSPE RADIOLOGY CIFIED ASSOCIAT [facility] 6252 MITTELSCHME 09-19-2011 [facility] OSI 19436 PAIN IN 06-16-2011 JENNERS JOINT, HAND RADIOLOGY ASSOCIAT 7937 NONSPC ABN 06-16-2011 JENNERS FINDNG RAD RADIOLOGY & OTH EXM ASSOCIAT [facility] [facility] 48508 CLOS 06-16-2011 HATTIE TELLO [facility] MID/PROXIMA L PHALANX/PHA LANG HAND 27867 SPRAIN AND 06-16-2011 HATTIE TELLO STRAIN OF HOSPITAL UNSPECIFIED SITE OF HAND 14633 CONTUSION 06-16-2011 HATTIE TELLO OF HAND HOSPITAL 9594 INJURY 06-16-2011 JENNERS OTHER AND RADIOLOGY UNSPECIFIED ASSOCIAT HAND EXCEPT FINGER E9270 OVEREXERTIO 06-16-2011 HATTIE TELLO N FROM HOSPITAL SUDDEN STRENUOUS MOVEMENT 6253 DYSMENORRHE 10-21-2010 [facility] ANI A 4658 ACUTE URIS 10-13-2010 ROSAM[facility]IA [place] OF OTHER MULTIPLE SITES 4871 INFLUENZA 10-13-2010 HATTIE TELLO WITH OTHER HOSPITAL RESPIRATORY MANIFESTATI ONS 93741 OTHER 10-13-2010 JENN[facility] ASCITES RADIOLOGY ASSOCIAT E8496 PLACE OF 04-13-2010 [facility] TELLO [facility] PUBLIC BUILDING E9175 STRIKE 04-13-2010 HATTIE TELLO [facility] K ACC OTH OBJ SPORTS W/FALL 2564 POLYCYSTIC 02-05-2010 [facility] GUPTA 5950 ACUTE 02-03-2010 [facility] 6268 OTH D/O 12-10-2009 [facility] MEN[facility] N&OTH ABN CLINIC BLEED FE GNT TRACT 16660 UNSPECIFIED 06-24-2009 [facility] BINOCULAR VISION VISION ANDLEARNING DISORDER 67955 NYSTAGMUS 06-24-2009 [facility] W/DEFIC VISION SMOOTH ANDLEARNING PURSUIT MOVEMENTS 9063 LATE EFFECT 05-26-2009 HATTIE TELLO OF HOSPITAL CONTUSION 75434 CONTUSION 05-25-2009 HATTIE TELLO OF [facility] E8499 UNSPECIFIED 05-25-[address] HOSPITAL OCCURRENCE E8859 FALL FROM 05-25-2009 HATTIE TELLO OTHER HOSPITAL SLIPPING TRIPPING OR STUMBLING 34784 VISUAL 04-01-2009 [facility] 79476 MIGRAINE 04-17-2008 HATT[facility] TELLO W/O [facility] W/O INTRACT W/O STAT MIGRNOSUS 16284 EFFUSION OF 03-30-2008 [facility] ANKLE AND RADIOLOGY FOOT JOINT ASSOCIATES PSC 7812 ABNORMALITY 03-30-2008 HATTIE TELLO OF [facility] 845 SPRAINS AND 03-30-2008 HATTIE TELLO STRAINS OF HOSPITAL ANKLE AND FOOT 9160 HIP THI 03-30-2008 HATTIE TELLO LEG[facility] ABRASION/FR ICION BURN W/O INF 9170 ABRASION/FR 03-30-2008 HATTIE TELLO ICTION BURN HOSPITAL FOOT&TOE W/O MENTION INF 70999 CONTUSION 03-30-2008 HATTIE TELLO OF [facility] V642 SURG/OTH 03-30-2008 HTATIE TELLO PROC NOT HOSPITAL CARRIED OUT BECAUSE PTS DECN 460 ACUTE 12-22-2007 [facility] ITIS INTERNAL MED 4780 HYPERTROPHY 12-18-2007 INGE, OF NASAL CHAD B TURBINATES 9953 ALLERGY 12-08-2007 [facility] UNSPECIFIED VALLEY NOT INTERNAL ELSEWHERE MED CLASSIFIED 5184 UNSPECIFIED 02-22-2007 [facility] OF PEDIA LUNG 5839 NEPHRITIS&N 02-22-2007 [facility] NOT AC/CHRN PEDIA W/UNS PATHAL LES G43.009 Migraine without aura, not intractable , without status migrainosus J40 BRONCHITIS, NOT SPECIFIED ACUTE OR CHRONIC N39.0 URINARY TRACT INFECTION, SITE NOT SPECIFIED R19.8 Other specified symptoms and signs involving the digestive system and abdomen R20.0 ANESTHESIA OF SKIN R56.9 Unspecified convulsions S01.81XA LACERATION W/O FOREIGN BODY OF OTH PART OF HEAD, INIT ENCNTR S06.0X9A CONCUSSION W LOSS OF CONSCIOUSNE SS OF UNSP DURATION, INIT S43.409A UNSP SPRAIN OF UNSPECIFIED SHOULDER JOINT, INIT ENCNTR S93.402A SPRAIN OF UNSPECIFIED LIGAMENT OF LEFT ANKLE, INIT ENCNTR T58.91XA Toxic effect of carbon monoxide from unspecified source, accidental (unintentio nal), initial encounter Allergies, Adverse Reactions, Alerts Clinical Alert Notifications [...] 34 7- 1- 00 01 UC ve PA 59 20 20 04 [place] ED 31 [...] 06 07 30 30 00 KE Ac PA 37 -2 -2 .0 00 NT ti [...] 80 6- 8- 00 01 UC ve PA 01 20 20 03 [place] AM 00 [...] 80 2- 6- 00 01 UC ve PA 01 20 20 03 [place] AM 00 17 17 07 5 85 CV HB S R PH 20 AR MA MG CY TA LL BL C, ET DB A CV S PH AR MA CY #3 01 6 PA 00 05 06 60 30 00 KE [...] 80 0- 8- 00 01 UC ve PA 01 20 20 01 KY AM 00 [...] 03 04 28 14 00 KE Ac PA 16 -1 -0 .0 00 NT ti [...] 01 KY ZA 11 17 17 27 PA 0 45 CV IN S E PH 10 AR MA MG CY TA LL BL C, ET DB A CV S PH AR MA CY #3 01 6 OS 47 02 03 10 5 00 KE Ac EL 78 -2 -2 .0 00 NT ti TA 10 7- 4- 00 01 UC ve NC 47 20 20 00 [place] 01 17 [...] PH AR MA CY #3 01 6 PA 00 02 03 10 5 00 KE [...] 1% 46 11 11 FA TH 0 NC AN SH LY L AM PO DR O UG MA 51 04 04 0 59 1 SO 37 WH Ac LA 67 -1 -1 .0 PE 09 EE ti TH 25 3- 3- 00 RS 00 LE ve IO 27 20 20 R N 70 11 11 FA KR 0. 4 NC IS 5% LY TI E LO DR [...] 0 30 15 WA 70 WH Ac PA 74 -1 -1 .0 L- 55 EE [...] JR IN 26 10 10 FA 7 NC CH 1% LY ES TE LO DR R TI UG R ON PE 00 11 11 1 59 2 SO 35 YO Ac RM 47 -0 -0 .0 PE 68 UN ti ET 25 8- 8- 00 RS 56 G ve HR 24 20 20 JR IN 26 10 10 FA 7 NC CH 1% LY ES TE LO DR R TI UG R ON 00 03 05 4 84 84 WA 70 LE Ac 43 -1 -2 .0 L- 34 WE ti 00 8- 1- 00 MA 44 LL ve 53 20 20 RT 6 EN 01 10 10 4 PH JR AR MA TH CY OM # L 10 04 93 66 01 02 00 20 10 WA 70 WH Ac 99 -2 -1 .0 L- 20 EE ti 20 5- 1- 00 MA 19 LE ve 23 20 20 RT 6 R 56 10 10 KR 0 PH IS AR TI MA E CY L #4 93 AZ 00 01 02 00 6. 5 WA 70 WH Ac IT 78 -2 -1 00 L- 20 EE ti HR 11 5- 1- 0 MA 19 LE ve OM 49 20 20 RT 5 R YC 66 10 10 KR IN 8 PH IS AR TI 25 MA E 0 CY L MG #4 TA 93 BL ET CI 00 03 04 00 7. 7 SO 30 JU Ac PA 06 -3 -0 50 PE 97 DY ti OD 58 0- 9- 0 RS 96 ve EX 53 20 20 NA 30 09 09 FA TA OT 2 NC LI IC LY E E MARIE DR SP UG EN SI ON 59 03 04 00 20 10 SO 30 JU Ac 76 -3 -0 .0 PE 97 DY ti 22 0- 9- 00 RS 95 ve 18 20 20 NA 00 09 09 FA TA 1 NC LI LY E E DR ROGERS TA 00 03 03 00 10 5 SO 30 HU Ac NC 00 -1 -2 .0 PE 86 NT ti FL 40 7- 6- 00 RS 44 ER ve U 80 20 20 75 08 09 09 FA NA 5 NC NC MG LY Y C CA DR PS UG UL E PA 60 03 03 00 12 5 SO 30 HU Ac OM 43 -1 -2 0. PE 86 NT ti ET 20 7- 6- 00 RS 30 ER ve NAILS 60 20 20 0 ZI 41 09 09 FA NA NE 6 NC NC -D LY Y M C SY RU UG P PA 50 01 01 00 60 30 SO 30 HU Ac OP 11 -1 -3 .0 PE 32 NT ti RA 10 3- 0- 00 RS 85 ER ve NO 46 20 20 LO 70 09 09 FA NA L 1 NC NC 10 LY Y C MG DR UG TA BL ET 60 01 01 00 12 3 SO 30 HU Ac 25 -1 -3 0. PE 32 NT ti 80 3- 0- 00 RS 84 ER ve 23 20 20 0 91 09 09 FA NA 6 NC NC LY Y C DR UG AB 59 01 01 00 45 30 SO 30 HU Ac IL 14 -1 -3 .0 PE 32 NT ti IF 80 3- 0- 00 RS 87 ER ve Y 00 20 20 5 71 09 09 FA NA MG 3 NC NC LY Y TA C BL ET UG 17 06 06 00 15 15 SO 28 No Ac 31 -0 -1 .0 PE 58 t ti 45 5- 2- 00 RS 89 Av ve 85 20 20 ai 10 08 08 FA la 2 NC bl LY e DR UG AB 59 06 06 00 15 30 SO 28 No Ac IL 14 -0 -1 .0 PE 58 t ti IF 80 5- 2- 00 RS 88 Av ve Y 00 20 20 ai 5 71 08 08 FA la MG 3 NC bl LY e TA BL ET UG NA 00 01 03 00 17 30 SO 27 No Ac SO 08 -2 -2 .0 PE 41 t ti NE 51 8- 6- 00 RS 12 Av ve X 28 20 20 ai 50 80 08 08 FA la 1 NC bl MC LY e G NA DR SA UG L SP RA Y 63 01 03 00 20 10 SO 27 No Ac 30 -2 -2 .0 PE 41 t ti 40 8- 6- 00 RS 14 Av ve 75 20 20 ai 12 08 08 FA la 0 NC bl LY e DR UG 00 01 03 00 30 30 SO 27 No Ac 09 -2 -2 .0 PE 41 t ti 51 8- 6- 00 RS 15 Av ve 29 20 20 ai 00 08 08 FA la 6 NC bl LY e DR UG AB 59 01 03 00 45 30 SO 27 No Ac IL 14 -2 -2 .0 PE 34 t ti IF 80 1- 5- 00 RS 53 Av ve Y 00 20 20 ai 5 71 08 08 FA la MG 3 NC bl LY e TA BL DR ET UG 17 01 03 00 30 30 SO 27 No Ac 31 -2 -2 .0 PE 34 t ti 45 1- 5- 00 RS 51 Av ve 85 20 20 ai 10 08 08 FA la 2 NC bl LY e DR UG PA 50 01 03 00 60 30 SO 27 No Ac OP 11 -1 -2 .0 PE 33 t ti RA 10 8- 5- 00 RS 47 Av ve NO 46 20 20 ai LO 70 08 08 FA la L 1 NC bl [address] UG TA BL ET Immunization Name Date Rout CVX Reac Dose Comm Prov Is Faci e tion ent ider Refu lity Give sed n IIV3 01- 141 HAMI No HAMI 6-20 LTON LTON [...] (06-07-2017 13:00) COLLECT CARYN complet OR 017 MCINTYRE ed 13:00 , RN ETHNICI WHITE, complet TY 017 NON-HIS ed 13:00 PANIC KIT complet EXPIRAT 017 017 ed ION 13:00 DATE SYMPTOM NO complet S 017 ed 13:00 REASON REVISIT complet FOR 017 /ANNUAL ed REQUEST 13:00 FAMILY PLANNIN G VISIT SPECIME URINE complet N 017 ed SOURCE 13:00 PREGNAN NO complet T 017 ed 13:00 CHART [id number] complet NUMBER 017 35 ed 13:00 Chlamyd Pending complet ia 017 ed trachom 13:00 atis rRNA [Presen ce] in Unspeci fied specime n by Probe & target amplifi cation method Neisser Pending complet ia 017 ed gonorrh 13:00 oeae rRNA [Presen ce] in Unspeci fied specime n by Probe & target amplifi cation method CBC W Diff pnl,unspecified Bld (02-08-2017 05:19) WBC --2 9.17 4.50-13 complet nRBC 017 10*3/mm .50 ed cor # 05:19 3 Bld RBC # 03-21-2 4.32 3.89-5. complet Bld 017 10*6/mm 14 ed Auto 05:19 3 Hgb -21-2 11.6 11.5-15 complet Bld-mCn 017 g/dL .5 ed c 05:19 Hct VFr -21-2 36.8 % 34.5-44 complet Bld 017 .0 ed Auto 05:19 MCV RBC 21-2 85.2 fL 80.0-99 complet Auto 017 .0 ed 05:19 MCH RBC 03-21-2 26.9 pg 27.0-31 complet Qn 017 .0 ed Auto 05:19 MCHC 03-21-2 31.5 32.0-36 complet RBC 017 g/dL .0 ed Auto-mC 05:19 nc RDW RBC -21-2 15.1 % 11.3-14 complet 017 .5 ed Auto-Rt 05:19 o RDW RBC -21-2 47.3 fl 37.0-54 complet Auto 017 .0 ed 05:19 PMV Bld 21-2 9.2 fL 6.0-12. complet Auto 017 0 ed 05:19 Platele -21-2 299 150-450 complet t # Bld 017 10*3/mm ed Auto 05:19 3 Neutrop -21-2 82.0 % 41.0-71 complet hils 017 .0 ed NFr Bld 05:19 Auto Lymphoc 03-21-2 13.0 % 24.0-44 complet ytes 017 .0 ed NFr Bld 05:19 Auto Monocyt 03-21-2 4.7 % 0.0-12. complet es NFr 017 0 ed Bld 05:19 Auto Eosinop 03-21-2 0.0 % 0.0-3.0 complet hil NFr 017 ed Bld 05:19 Auto Basophi -21-2 0.1 % 0.0-1.0 complet ls NFr 017 ed Bld 05:19 Auto Imm -21-2 0.2 % 0.0-0.6 complet Granulo 017 ed cytes 05:19 NFr Bld Neutrop 21-2 7.52 1.50-8. complet hils # 017 10*3/mm 30 ed Bld 05:19 3 Auto Lymphoc -21-2 1.19 0.60-4. complet ytes # 017 10*3/mm 80 ed Bld 05:19 3 Auto Monocyt 21-2 0.43 0.00-1. complet es # 017 10*3/mm 00 ed Bld 05:19 3 Auto Eosinop -21-2 0.00 0.10-0. complet hil # 017 10*3/mm 30 ed Bld 05:19 3 Auto Basophi -21-2 0.01 0.00-0. complet ls # 017 10*3/mm 20 ed Bld 05:19 3 Auto Imm -21-2 0.02 0.00-0. complet Granulo 017 10*3/mm 03 ed cytes # 05:19 3 Bld Comp Metab 1998 Pnl SerPl (02-08-2017 05:19) Glucose 02-08-2 160 70-100 complet 017 mg/dL ed Bld-mCn 05:19 c Potassi 02-08-2 4.1 3.5-5.5 complet um 017 mmol/L ed Bld-sCn 05:19 c Chlorid 02-08-2 108 99-109 complet e 017 mmol/L ed SerPl-s 05:19 Cnc CO2 23.0 20.0-31 complet SerPl-s 017 mmol/L .0 ed Cnc 05:19 Calcium 9.5 8.7-10. complet 017 mg/dL 4 ed XXX-sCn 05:19 c Prot 7.3 5.7-8.2 complet SerPl-m 017 g/dL ed Cnc 05:19 Albumin 4.30 3.20-4. complet 017 g/dL 80 ed SerPl-m 05:19 Cnc ALT 13 U/L 7-40 complet SerPl w 017 ed 05:19 P-5'-P- cCnc AST 17 U/L 0-33 complet SerPl-c 017 ed Cnc 05:19 ALP 70 U/L 25-100 complet SerPl-c 017 ed Cnc 05:19 Bilirub 0.3 0.3-1.2 complet 017 mg/dL ed SerPl-m 05:19 Cnc GFR/BSA 107 >60 complet .pred 017 mL/min/ ed SerPl 05:19 1.73 MDRD-Ar VRat Globuli 3.0 complet n Ur 017 gm/dL ed Elph-mC 05:19 nc Albumin 1.4 1.5-2.5 complet /Glob 017 g/dL ed SerPl 05:19 BUN/Cre 15.7 7.0-25. complet at 017 0 ed SerPl 05:19 Anion 7.0 3.0-11. complet Gap3 017 mmol/L 0 ed SerPl-s 05:19 Cnc BUN 11 9-23 complet Bld-mCn 017 mg/dL ed c 05:19 Creat 0.70 0.60-1. 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 MEDROXYPR [facility] DEPT [facility] DEPT OGESTERON KIERA KIERA E ACETATE 1 MG IADNA 31740 [facility] CHLAMYDIA 7 [facility] DEPT TH DEPT TRACHOMAT KIERA KIERA IS AMPLIFIED PROBE TQ URINE [address] [address] [facility] TEST [facility] DEPT [facility] DEPT VISUAL KIERA KIERA COLOR CMPRSN METHS IADNA 87969 [facility] NEISSERIA 7 [facility] DEPT HL DEPT GONORRHOE KIERA KIERA AE AMPLIFIED PROBE TQ GENERAL [address] [place] [address] HEALTH HEALTH PANEL [facility] CYANOCOBA 65461 [facility] ORTHODOXY ALFREDO 7 HEALTH HEALTH VITAMIN [facility] B-12 LIPID 93906 [facility] ORTHODOXY PANEL 7 HEALTH HEALTH [facility] HEMOGLOBI 52932 [facility] ORTHODOXY N 7 HEALTH HEALTH GLYCOSYLA [facility] DOROTHY A1C RADEX 80304 [facility] [place] SCALF ABDOMEN 1 7 RADIOLOGY ANTEROPOS TERIOR VIEW CULTURE 99075 [facility] BACTERIAL 7 ELIZABETH ELIZABETH HOLDINGS HOLDINGS QUANTTATI VE COLONY COUNT URINE INJECTION J1050 [facility] MEDROXYPR HLTH DEPT HLTH DEPT OGESTERON KIERA KIER[place] [address] [place] [address] [facility] HEAD/BRAI 7 RADIOLOGY N W/O ASSOC CONTRAST MATERIAL APPL 59910 NONA NONA MODALITY 7 1/> AREAS ELEC STIMJ [facility] G0378 ORTHODOXY ORTHODOXY OBSERVATI 7 HEALTH HEALTH ON [facility] SERVICE PER HOUR INITIAL 75167 ORTHODOXY [facility] 7 HEALTH ON MEDICAL CARE/DAY GROUP 70 MINUTES GROUND A0425 BRUN[facility] BRUNO MILEAGE 7 FAYETTE FAYETTE PER URBAN URBAN STATUTE COGOVT COGOVT MILE CHIROPRAC 91249 NONA NONA TIC 7 MANIPULAT [place] SPINAL 1-2 REGIONS APPL 94958 NONA NONA MODALITY 7 1/> AREAS ULTRASOUN D EA 15 MIN AMB A0427 BRUNO BRUNO SERVICE 7 FAYETTE FAYETTE ALS URBAN URBAN EMERGENCY COGOVT COGOVT TRANSPORT LEVEL 1 APPL 28914 NONA NONA MODALITY 7 1/> AREAS ULTRASOUN D EA 15 MIN CHIROPRAC 01520 NONA NONA TIC 7 MANIPULAT [place] SPINAL 1-2 REGIONS APPL 78686 NONA NONA MODALITY 7 1/> AREAS ELEC STIMJ UNATTENDE D APPL 46646 NONA NONA MODALITY 7 1/> AREAS ULTRASOUN D EA 15 MIN CHIROPRAC 90297 NONA NONA TIC 7 MANIPULAT [place] SPINAL 1-2 REGIONS APPL 72778 NONA NONA MODALITY 7 1/> AREAS ELEC STIMJ UNATTENDE D IAADIADOO 20333 VELIA ANIBAL 7 CLINIC SE INFLUENZA RADIOLOGI 06566 MIMI LE Alex EXAM 7 [facility] CHEST 2 INC INC VIEWS FRONTAL&L ATERAL CUL BACT 03624 MIMI LE XCPT 7 [facility] URINE INC INC BLOOD/[place] [address] MIMI LE STREPTOCO 7 [facility] CCUS INC INC GROUP A IAADI 88400 MIMI LE INFLUENZA 7 [facility] B VIRUS INC INC IAADI 84996 MIMI LE INFFLUENZ 7 [facility] A A VIRUS INC INC ANTIBODY 16333 [facility] TRE[facility] DEPT [facility] DEPT KIERA KIERA INJECTION J1050 [facility] MEDROXYPR [facility] DEPT [facility] DEPT OGESTERON KIERA KIERA E ACETATE 1 MG IADNA 81591 [facility] CHLAMYDIA 7 [facility] DISTRICT [facility] DEPT TH DEPT TRACHOMAT KIERA KIERA IS AMPLIFIED PROBE TQ IADNA 53932 [facility] NE[facility] DISTRICT [facility] DEPT [facility] DEPT GONORRHOE KIERA KIERA AE AMPLIFIED PROBE TQ IAADIADOO 21491 VELIA LEZAMA 7 CLINIC STREPTOCO CCUS GROUP A RADIOLOGI 38874 [facility] [address] [place] [address] ON KNEE 3 VIEWS RADEX 62254 [facility] ELBOW [address] [place] [address] MINIMUM 3 VIEWS RADEX 26513 [facility] [place] RIBS [address] [place] [address] L 2 VIEWS INJECTION J1050 [facility] [address] [facility] MEDROXYPR [facility] DEPT [facility] DEPT OGESTERON KIERA KIERA E ACETATE 1 MG INJECTION J1050 [facility] MEDROXYPR [facility] DEPT HLTH DEPT OGESTERON KIERA KIERA E ACETATE 1 MG CONTRACEP A4267 [facility] TIVE 6 [facility] DISTRICT SUPPLY [facility] DEPT HL DEPT CONDOM KIERA KIERA MALE EACH INJECTION J1100 VELIA SCHMITZ- 6 [facility] DEXAMETHO SONE SODIUM PHOSPHATE 1 MG THERAPEUT 72605 EVLIA SCHMITZ- IC 6 CLIN[facility] PROPHYLAC TIC/DX INJECTION SUBQ/IM THERAPEUT 13506 KASI VILLASEÑOR [address] IV PUSH EACH NEW DRUG INJ J2930 [facility] METHYLPRD [address] [place] [address] SODIUM SUCCNAT TO 125 MG THER 92804 [facility] VILLASEÑOR PROPH/DX [address] [place] [address] HOSPITAL PUSH SINGLE/1S T SBST/DRUG IADNA 35918 [facility] CHLAMYDIA 6 [facility] DEPT [facility] DEPT TRACHOMAT KIERA KIERA IS AMPLIFIED PROBE TQ CONTRACEP A4267 [facility] TIVE 6 [facility] DISTRICT SUPPLY [facility] DEPT HLTH DEPT CONDOM KIERA KIERA MALE EACH IADNA 33957 [facility] NEISSERIA [address] [place] [address] DEPT [facility] DEPT GONORRHOE KIERA KIERA AE AMPLIFIED PROBE TQ THERAPEUT 36357 KASI VILLASEÑOR [address] PROPHYLBOSTON SANATORIUM TIC/DX INJECTION SUBQ/IM RADEX 03155 [facility] [place] SCALF FERMÍN NASAL 6 RADIOLOGY BONES COMPLETE MINIMUM 3 VIEWS INJECTION J1885 [place] [address] KETOROLAC [facility] TROMETHAM INE PER 15 MG COLLECTIO 44503 [place] [facility] N VENOUS [address] [place] [address] VENIPUNCT URE COMPREHEN 05678 [facility] VILLASEÑOR SIVE [address] [place] [address] PANEL BLOOD 48930 [place] KASI COUNT [address] [place] [address] AUTO&[place] [address] [facility] FOLIC 6 ELIZABETH ELIZABETH ACID HOLDINGS HOLDINGS SERUM CYANOCOBA 85911 [facility] F[facility] ALFREDO 6 ELIZABETH ELIZABETH VITAMIN HOLDINGS HOLDINGS B-12 BASIC 66974 [facility] METABOLIC 6 ELIZABETH ELIZABETH PANEL HOLDINGS HOLDINGS CALCIUM TOTAL IAADIADOO 32172 VELIA MARTINLE 6 CLINIC CLINIC STREPTOCO CCUS GROUP A ANES 36115 MATILDE JEAN UPPER GI 6 ANESTHESI ENDOSCOPY A GROUP PROXIMAL PS TO DUODENUM INJECTION J1050 [facility] MEDROXYPR TH DEPT HLTH DEPT OGESTERON KIERA KIERA E ACETATE 1 [place] [address] [facility] FREE 6 ELIZABETH ELIZABETH [place] [address] [facility] FOLIC 6 ELIZABETH ELIZABETH [place] [address] [facility] AMYLASE 6 [facility] ELIZAB[facility] HOLD[facility] CYANOCOBA 87520 [facility] ALFREDO 6 ELIZABETH ELIZABETH VITAMIN HOLDINGS [place]INGS B-12 [place] [address] LAB F[facility] LIPASE 6 [facility] ELIZ[facility]ETH [facility] HOLDINGS URINE 41085 VELIA GUNN 6 CLINIC CLINIC TEST VISUAL COLOR CMPRSN METHS GENERAL 17687 [facility] HEALTH 6 ELIZABETH ELIZABETH PANEL HOLDINGS HOLDINGS HPYLORI 00184 [facility] BREATH 6 ELIZABETH ELIZABETH ANAL HOLDINGS HOLDINGS UREASE ACT NON-RADAC T ISTOPE IAADIADOO 45150 HATTIE RESENDIZ 5 [facility] STREPTOCO URGENT CCUS TREAT GROUP A CONTRACEP A4267 [facility] T[facility] 5 [facility] DISTRICT SUPPLY [facility] DEPT [facility] DEPT CONDOM KIERA KIERA MALE EACH INJECTION J1050 [facility] MEDROXYPR [facility] DEPT TH DEPT OGESTERON KIERA KIERA E ACETATE 1 MG LARYNGOSC 30453 EAR, NOSE SHASHY OPY 5 AND MIRANDA FLEXIBLE THROAT DIAGNOSTI SPECIAL C IAADIADOO 77513 HATTIE RESENDIZ 5 [facility] [place]OC[place] [address] [facility] [place] CORBIN JAM ABDOMEN & 5 RADIOLOGY PELVIS W/O CONTRAST MATERIAL IADNA 37181 [facility] DEPT [facility] DEPT GONORRHOE KIERA KIERA AE AMPLIFIED PROBE TQ CONTRACEP A4267 [facility] TIVE 5 DISTRICT DISTRICT SUPPLY [facility] DEPT [facility] DEPT CONDOM KIERA KIERA MALE EACH URINE 58446 [facility] TEST [facility] DEPT [facility] DEPT VISUAL KIERA KIERA COLOR CMPRSN METHS IADNA 85134 [facility] CHLAMYDIA 5 [facility] DISTRICT [facility] DEPT [facility] DEPT TRACHOMAT KIERA KIERA IS AMPLIFIED PROBE TQ INJECTION J1050 [facility] MEDROXYPR [facility] DEPT [facility] DEPT OGESTERON KIERA KIERA E ACETATE 1 MG RADEX 71158 MIMI MIMI ANKLE 5 MEM HOS[facility] MEM HOSP COMPLETE INC INC MINIMUM 3 VIEWS CRTCHS E0114 [facility]VANCED UNDARM 5 TECHNOLOG TECHNOLOG OTH THAN IES INC IES INC WOOD PAIR PAD TIP&HNDGR IP CULTURE 92469 [place] BACTERIAL 5 [facility] QUANTTATI VE COLONY COUNT URINE URINE 48751 [facility] [facility] 5 [facility] VISUAL COLOR CMPRSN METHS INJECTION J1885 [place] [address] [place] [address] [facility] TROMETHAM INE [place] [address] [place] [address] [place] ABDOMEN & 5 [facility] W/O CONTRAST MATERIAL THER 65718 [place] PROPH/DX 5 [facility] HOSPITAL PUSH SINGLE/1S T SBST/DRUG BLOOD 18709 [facility] COUNT 5 [facility] AUTO&AUTO DIFRNTL WBC URNLS DIP 49969 [place] [address] [place] [address] [facility] HOSPITAL LET REAGENT AUTO MICROSCOP Y THERAPEUT 25176 [place] IC [address] [place] [address] INJECTION [facility] IV PUSH EACH NEW DRUG COLLECTIO 92992 [facility] N VENOUS 5 [facility] VENIPUNCT URE COMPREHEN 56788 [place] SIVE [address] [place] [address] [place] [address] [place]I [place] AMYLASE [address] [place] [address] INJECTION J2405 K[facility] [place] [address] [place] [address] ON HCL PER [address] LUMBAR [address] [facility] [place] CORBIN JAM SPINE 5 RADIOLOGY W/O CONTRAST MATERIAL RADIOLOGI 81865 [facility] [place] ROJAS C 5 RADIOLOGY JOSE EXAMINATI ON PELVIS 1/2 VIEWS GROUND A0425 HATTIE KUHN MILEAGE [address] [place] [address] PER AMBULANCE AMBULANCE STATUTE SE SE MILE CT ANGIO 34020 [facility] [place] ROJAS ABD&PLVIS 5 RADIOLOGY JOSE CNTRST MTRL W/[place] [address] [facility] [place] HAJIBRAHI ANGIOGRAP 5 RADIOLOGY M DHAVAL HY CHEST W/[place] [address] [facility] [place] CORBIN JAM CERVICAL 5 RADIOLOGY SPINE W/O CONTRAST MATERIAL RADIOLOGI 30988 [facility] [place] ROJAS C 5 RADIOLOGY JOSE EXAMINATI ON CHEST SINGLE VIEW FRONTAL AMB A0427 HATTIE KUHN SERVICE [address] [place] [address] ALS AMBULANCE AMBULANCE EMERGENCY SE [place] [address] [place] [facility] HEAD/BRAI 5 MEDICAL NANI N W/[place] [address] [facility] CERVICAL 5 MEDICAL NANI SPINE W/[place] [address] [facility] [place] RUSSEL TRANSVAGI [place] [address] K[facility]I [place] LIPASE [address] [place] [address] [place] [address] KASI VILLASEÑOR ABDOMEN & 5 [facility] HOSPITAL W/O CONTRAST MATERIAL URINE 26435 KASI VILLASEÑOR [address] [place] [address] VISUAL COLOR CMPRSN METHS BLOOD 75423 KASI [place] COUNT [address] [place] [address] AUTO&AUTO DIFRNTL WBC URNLS DIP 52080 [facility]ASI [place] [address] [place] [address] [facility]PITAL LET REAGENT AUTO MICROSCOP Y COLLECTIO 24778 KASI VILLASEÑOR N VENOUS 5 [facility] VENIPUNCT URE COMPREHEN 45938 KASI VILLASEÑOR SIVE 5 [facility] [place] [address] KASI VILLASEÑOR AMYLASE 5 [facility] BRNCDILAT 78047 INGE INGE RSPSE 5 CHAD CHAD SPMTRY PRE&POST- BRNCDILAT ADMN PRESSURIZ 51815 INGE INGE ED/NONPRE 5 CHAD CHAD SSURIZED INHALATIO N TREATMENT NITRIC 96173 INGE INGE OXIDE 5 CHAD CHAD GAS DETERMINA TION PREPJ& 67150 INGE INGE ALLERGEN 4 CHAD BONILLA IMMUNOTHE RAPY 1/COORDINATE 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 ANTIGEN INITIAL 29591 RACHEL RAMOS OBSERVATI 4 SOY SOY ON CARE/DAY 50 MINUTES RADIOLOGI 76726 MIMI Johnson EXAM 4 [facility] CHEST 2 INC INC VIEWS FRONTAL&L ATERAL COLLECTIO 83040 VELIA LEZAMA LASHON N VENOUS 4 CLINIC BLOOD VENIPUNCT URE BLOOD 00663 [facility] COUNT 4 ELIZABETH ELIZABETH COMPLETE HOLDINGS HOLDINGS AUTO&AUTO DIFRNTL WBC ALBUMIN 25268 [facility] SERUM 4 [facility] ELIZABETH PLASMA/WH HOLDINGS HOLDINGS OLE BLOOD GLUCOSE 40026 [facility] QUANTITAT 4 [facility] ELIZABETH MORENITA BLOOD HOLDINGS HOLDINGS XCPT REAGENT STRIP PROTEIN 98320 [facility] XCPT 4 [facility] ELIZABETH REFRACTOM HOLDINGS HOLDINGS ETRY SERUM PLASMA/WH L BLD SODIUM 65935 [facility] SERUM 4 EL[facility]ETH ELIZABETH PLASMA OR HOLDINGS HOLDINGS WHOLE BLOOD BILIRUBIN 54865 [facility] TOTAL 4 EL[facility]ETH ELIZABETH HOLDINGS HOLDINGS CALCIUM 76093 [facility] TOTAL 4 EL[facility]ABETH ELIZABETH HOLDINGS HOLDINGS TRANSFERA 96611 [facility] SE 4 EL[facility]ABETH ELIZABETH ASPARTATE [place] [address] [facility] UREA 4 [facility] ELIZABETH NITROGEN HOLDINGS HOLDINGS QUANTITAT MORENITA CHLORIDE 48983 [facility] BLD 4 ELIZABETH ELIZABETH HOLDINGS HOLDINGS CREATININ 83207 [facility] E BLOOD 4 [facility] [place] [address] [facility] PHOSPHATA 4 ELIZABETH ELIZABETH SE HOLDINGS HOLDINGS ALKALINE POTASSIUM 51412 [facility] SERUM 4 ELIZABETH ELIZABETH PLASMA/WH HOLDINGS HOLDINGS OLE BLOOD IAADIADOO 04207 MEANS BUTROS 4 ADULT MARISEL STREPTOCO PRIMARY CCUS CARE CLI GROUP A INJECTION J1040 INTEGRITY RICHARDS, 4 JR. JAM METHYLPRE ORTHOPAED DNISOLONE ICS SPORT ACETATE 80 MG ARTHROCEN 03078 INTEGRITY RICHARDS, TESIS 4 JR. JAM ASPIR&/IN ORTHOPAED J MAJOR ICS SPORT JT/BUR[place] [address] [facility] [place] ROJAS JT LOWER 4 RADIOLOGY JOSE EXTREM W/O CONTRAST MATRL SLINGS A4565 BREG INC. BREG INC. 4 RADEX 29479 [facility] SHOULDER 4 MEDICAL NANI COMPLETE IMAGING MINIMUM 2 ASS VIEWS INJECTION J0696 VELIA SCHMITZ- [facility] CEFTRIAXO NE SODIUM PER 250 MG IPRATROPI J7644 VELIA SCHMITZ- UM 4 [facility] BROMIDE INHAL NON-CP U DOSE PER MG ALBUTEROL J7609 VELIA SCHMITZ- INHAL CP 4 [facility] PROD THRU DME UNIT DOSE 1 MG PRESSURIZ 36869 VELIA SCHMITZ- ED/NONPRE 4 [facility] SSURIZED INHALATIO N TREATMENT THERAPEUT 66876 VELIA SCHMITZ- IC 4 [facility] PROPHYLAC TIC/DX INJECTION SUBQ/IM DEMO&/KERWIN 98955 VELIA SCHMITZ- L OF PT 4 [facility] UTILIZ AERSL GEN/NEB/I NHLR/IP INJECTION J1030 VELIA SCHMITZ- [facility] METHYLPRE DNISOLONE ACETATE 40 MG MANUAL 75419 SCHULTE CHR SCHULTE CHR THERAPY 4 TQS 1/> REGIONS EACH 15 MINUTES THERAPEUT 74821 SCHULTE CHR SCHULTE CHR IC PX 1/> 4 AREAS EACH 15 MIN EXERCISES THERAPEUT 07688 SCHULTE CHR SCHULTE CHR IC PX 1/> 4 AREAS EACH 15 MIN EXERCISES MANUAL 00008 SCHULTE CHR SCHULTE CHR THERAPY 4 TQS 1/> REGIONS EACH 15 MINUTES MANUAL 78997 SCHULTE CHR SCHULTE CHR THERAPY 4 TQS 1/> REGIONS EACH 15 MINUTES THERAPEUT 09827 SCHULTE CHR SCHULTE CHR IC PX 1/> 4 AREAS EACH 15 MIN EXERCISES THERAPEUT 82573 SCHULTE CHR SCHULTE CHR IC PX 1/> 4 AREAS EACH 15 MIN EXERCISES MANUAL 17618 SCHULTE CHR SCHULTE CHR THERAPY 4 TQS 1/> REGIONS EACH 15 MINUTES THERAPEUT 91166 SCHULTE CHR SCHULTE CHR IC PX 1/> 4 AREAS EACH 15 MIN EXERCISES MANUAL 13860 SCHULTE CHR SCHULTE CHR THERAPY 4 TQS 1/> REGIONS EACH 15 MINUTES MANUAL 50018 SCHULTE CHR SCHULTE CHR THERAPY 4 TQS 1/> REGIONS EACH 15 MINUTES THERAPEUT 86796 SCHULTE CHR SCHULTE CHR IC PX 1/> 4 AREAS EACH 15 MIN EXERCISES PHYSICAL 59656 SCHULTE CHR SCHULTE CHR THERAPY 4 EVALUATIO N RADEX 93649 MOOKIE DAMICO ANKLE 4 SHANNON SHANNON COMPLETE MINIMUM 3 VIEWS ANKLE L1902 [employer] ORTH 4 BRACING BR[employer] INC. INC. GAUNT/SIM PREFAB OFF-THE-S HELF RADIOLOGI 16751 MOOKIE DAMICO C 4 SHANNON SHANNON EXAMINATI ON KNEE 1/2 VIEWS COMPRE 55575 [place] [facility] SET AUDIOMETR 4 PHYSICIAN Y PRACTICE THRESHOLD L EVAL SP RECOGNIJ TYMPANOME 09370 [place] [facility] SET TRY 4 PHYSICIAN PRACTICE L CUL BACT 04450 [facility] INC, [employer], XCPT 4 HIGH SPEED OPERATOR HIGH SPEED OPERATOR URINE HATTIE HATTIE BLOOD/STO [place] [address] [facility], [facility], SHIGA-LIK 4 HIGH SPEED OPERATOR HIGH SPEED OPERATOR E TOXIN HATTIE HATTIE CO [facility] HOS SMR PRIM 51894 [facility] INC, [facility] INC, SRC CPLX 4 HIGH SPEED OPERATOR HIGH SPEED OPERATOR SPEC HATTIE HATTIE STAIN CO HOS CO HOS OVA&MARVA ITS CUL BACT 00695 [facility], [facility] INC, STOOL 4 HIGH SPEED OPERATOR HIGH SPEED OPERATOR AEROBIC HATTIE HATTIE ADDL CO HOS CO HOS PATHOGENS &ID EA CUL BACT 73731 [facility], [facility] INC, STOOL 4 HIGH SPEED OPERATOR HIGH SPEED OPERATOR AEROBIC HATTIE HATTIE ISOL CO HOS CO HOS SALMONELL A&SHIGELL COMPREHEN 69556 [facility] INC, [facility] INC, SIVE 4 HIGH SPEED OPERATOR HIGH SPEED OPERATOR METABOLIC HATTIE HATTIE PANEL CO HOS CO HOS OVA&MARVA 11000 [facility] INC, [facility] INC, ITES 4 HIGH SPEED OPERATOR HIGH SPEED OPERATOR DIRECT HATTIE HATTIE SMEARS CO HOS CO HOS CONCENTRA TION & ID BLOOD 10194 [facility], [facility] INC, COUNT 4 HIGH SPEED OPERATOR HIGH SPEED OPERATOR COMPLETE HATTIE HATTIE AUTO&AUTO CO HOS CO HOS DIFRNTL WBC LEUKOCYTE 42668 [facility], [facility] INC, ASSMT 4 HIGH SPEED OPERATOR HIGH SPEED OPERATOR FECAL HATTIE HATTIE QUAL/SEMI CO HOS CO HOS QUANTITAT MORENITA BLOOD 41042 [facility], [facility] INC, OCCULT 4 HIGH SPEED OPERATOR HIGH SPEED OPERATOR PEROXIDAS HATTIE HATTIE E ACTV CO HOS CO HOS QUAL FECES 1 DETER IAADIADOO 52455 [facility] [place] STREPTOCO CCUS GROUP A SPMTRY 22297 INGE INGE W/VC 4 CHAD CHAD EXPIRATOR Y RADHA W/WO MXML VOL VNTJ IAADIADOO 67132 ASTRID RESENDIZ 4 NAN NAN STREPTOCO CCUS GROUP A PREPJ& 91765 INGE INGE ALLERGEN 4 HCAD CHAD IMMUNOTHE RAPY 1/COORDINATE 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 ANTIGEN BASIC 79400 [facility], [facility] INC, METABOLIC 4 HIGH SPEED OPERATOR HIGH SPEED OPERATOR PANEL HATTIE HATT[place] [address] [facility] [employer], [employer], INFUSION 4 HIGH SPEED OPERATOR HIGH SPEED OPERATOR THERAPY/P HATTIE KUHN ROPHYLAXI CO HOS CO HOS S /DX 1ST TO 1 HR BLOOD 63763 [employer], [employer], COUNT 4 HIGH SPEED OPERATOR HIGH SPEED OPERATOR COMPLETE HATTIE KUHN AUTO&AUTO CO HOS CO HOS DIFRNTL WBC RADIOLOGI 26291 [facility] [employer], [employer] [facility], C EXAM 4 HIGH SPEED OPERATOR HIGH SPEED OPERATOR CHEST 2 HATTIE KUHN VIEWS CO HOS CO HOS FRONTAL&L ATERAL PRESSURIZ 20663 [employer], [employer], ED/NONPRE 4 HIGH SPEED OPERATOR HIGH SPEED OPERATOR SSURIZED HATTIE KUHN INHALATIO CO HOS CO HOS N TREATMENT THER 22118 [employer], [employer], PROPH/DX 4 HIGH SPEED OPERATOR HIGH SPEED OPERATOR NJX IV HATTIE KUHN PUSH CO HOS CO HOS SINGLE/1S T SBST/DRUG IIV3 61419 [facility] VACCINE 4 [place] SPLIT VIRUS 0.5 ML DOSAGE IM USE PROF SVCS 18356 INGE INGE ALLG 4 CHAD CHAD IMMNTX X W/PRV ALLGIC XTRCS NJXS PREPJ& 91932 INGE INGE ALLERGEN 4 CHAD CHAD IMMUNOTHE RAPY 1/COORDINATE 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 ANTIGEN SPMTRY 49834 INGE INGE W/VC 3 CHAD CHAD EXPIRATOR Y RADHA W/WO MXML VOL VNTJ PERCUTANE 09757 INGE INGE OUS TESTS 3 CHAD CHAD W/ALLERGE KIERA EXTRACTS INTRACUTA 09548 INGE INGE NEOUS 3 CHAD CHAD TESTS W/ALLERGE KIERA EXTRACTS URNLS DIP 01790 [facility] 3 [place] STICK/TAB LET RGNT AUTO W/O MICROSCOP Y RADEX 24749 NELLIE BALLARD FOOT 3 EIDER LASHON [facility] COMPLETE MINIMUM 3 VIEWS RADEX 07807 NELLIE WORLEYN ANKLE 3 E[place]ASH[place] [facility] COMPLETE MINIMUM 3 VIEWS OPHTH 75439 [facility] 3 GRE GRE XM&EVAL COMPRE NEW PT 1/> VST SPMTRY 53681 INGE INGE W/VC 3 CHAD CHAD EXPIRATOR Y RADHA W/WO MXML VOL VNTJ DETERMINA 98807 DREW RUSSELL TIEVGENY 3 GRE GRE REFRACTIV E STATE RADEX 45470 [facility] CAINMAN FOOT 3 FERMÍN FERMÍN COMPLETE MINIMUM 3 VIEWS SPACR A4627 MT MED MT MED BAG/RESRV 3 EQUIPMENT EQUIPMENT OR W/WO INC INC MASK W/METRD DOSE INHAL BRNCDILAT 42411 INGE INGE RSPSE 3 CHAD CHAD SPMTRY PRE&POST- BRNCDILAT ADMN LAPAROSCO 55757 [facility] PY SURG 3 [facility] ECTOMY PRESSURIZ 21617 [facility] ED/NONPRE 3 [facility] INHALATIO N TREATMENT ANES 08365 SIENNA ANT SIENNA ANT INTRAPERI 3 TONEAL UPPER ABDOMEN W/LAPS NOS URINE 16898 [facility] VISUAL COLOR CMPRSN METHS LEVEL III 33904 TANOUS, TANOUS, SURG 3 JR EDW JR EDW PATHOLOGY GROSS&JANA ROSCOPIC EXAM COLLECTIO 98873 KASI JESSICAON N VENOUS [address] [place] [address] VENIPUNCT URE COMPREHEN 54626 [facility] SIVE 3 [facility] PANEL BLOOD 46225 [facility] COUNT 3 [facility] AUTO&AUTO DIFRNTL WBC HEPATOBIL 09022 RUSSEL RUSSEL SYST 3 RHO RHO IMAG INC GB W/PHARMA INTERVENJ BLOOD 80914 [employer], [employer], COUNT 3 HIGH SPEED OPERATOR HIGH SPEED OPERATOR COMPLETE HATTIE KUHN AUTO&[place] [address] [facility] CH[facility]LA ABDOMINAL 3 FERMÍN FERMÍN REAL TIME W/IMAGE LIMITED COMPREHEN 35232 [employer], [employer], SIVE 3 HIGH SPEED OPERATOR HIGH SPEED OPERATOR METABOLIC HATTIE KUH[place] [address] [employer], AMYLASE 3 HIGH SPEED OPERATOR HIGH SPEED OPERATOR HATTIE KUHN CO HOS CO HOS NEBULIZER E0570 DANGELO PIERSON WITH 3 HOME HOME COMPRESSO MEDICAL MEDICAL R EQUIPME EQUIPME ADMN SET A7003 YOUR YOUR SM VOL 3 PHARMACY PHARMACY [facility] PNEUMAT NEBULIZR DISPBL RADIOLOGI 69809 NELLIE BALLARD C EXAM 3 EIDER LASHON EIDER LASHON CHEST 2 VIEWS FRONTAL&L ATERAL RADIOLOGI 50353 HAGENSCHN HAGENSCHN C EXAM 3 E[place]ER LASHON E[facility]ER LASHON CHEST 2 VIEWS FRONTAL&L ATERAL EXC TUMOR 55267 ADLER ADLER SOFT 3 TONYA TONYA TISS NECK/THOR AX SUBFASCIA L <5CM URINE 08247 [facility] 3 Y Y TEST [facility] VISUAL COLOR CMPRSN METHS INJECTION J3010 [facility] FENTANYL 3 Y Y CITRATE [facility] 0.1 MG INFUSION J7030 [facility] NORMAL 3 Y Y SALINE [facility] SOLUTION 1000 CC BX/EXC 08835 [facility] LYMPH 3 Y Y NODE OPEN [facility] DEEP CERVICAL NODE INJECTION J1100 [facility] 3 Y Y DEXAMETHO [facility] SONE SODIUM PHOSPHATE 1 MG RINGERS J7120 [facility] LACTATE 3 Y Y INFUSION [facility] UP TO 1000 CC INJECTION J2405 [facility] 3 [facility] ON HCL PER 1 [place] [address] MONTILLA MOL MONTILLA MOL SURG 3 PATHOLOGY GROSS&JANA ROSCOPIC EXAM ANES 09862 HOWARD JANA HOWARD JANA INTEG 3 MUSC & NRV HEAD NECK&POST ERIOR TRUNK INJECTION J2250 [facility] 3 Y Y MIDAZOLAM [facility] HCL PER 1 MG BLOOD 88374 [employer], COUNT 3 HIGH SPEED OPERATOR HIGH SPEED OPERATOR COMPLETE HATTIE KUHN AUTO&AUTO CO HOS CO HOS DIFRNTL WBC GONADOTRO 59430 [employer], PIN 3 HIGH SPEED OPERATOR HIGH SPEED OPERATOR CHORIONIC [place]ATTIE [place] [address] [employer], EXTREMITY 3 HIGH SPEED OPERATOR HIGH SPEED OPERATOR NON-VASC HATTIE HATTIE CO HOS CO HOS REAL-TIME IMG COMPL BLOOD 18976 [employer], COUNT 3 HIGH SPEED OPERATOR HIGH SPEED OPERATOR COMPLETE HATTIE HATTIE AUTO&AUTO CO HOS CO HOS DIFRNTL WBC THYROID 14086 [employer], HORM 3 HIGH SPEED OPERATOR HIGH SPEED OPERATOR UPTK/THYR HATTIE HATTIE OID CO HOS CO HOS HORMONE BINDING RATIO HEMOGLOBI 38282 [employer], N 3 HIGH SPEED OPERATOR HIGH SPEED OPERATOR GLYCOSYLA HATTIE HATTIE DOROTHY A1[place] [address] [employer], THYROID 3 HIGH SPEED OPERATOR HIGH SPEED OPERATOR STIMULATI HATTIE HATTIE NG [place] [address] [employer], INSULIN 3 HIGH SPEED OPERATOR HIGH SPEED OPERATOR TOTAL [place] [address] [employer], FREE 3 HIGH SPEED OPERATOR HIGH SPEED OPERATOR THYROXINE HATTIE HATTIE CO HOS CO HOS COMPREHEN 64867 [employer], SIVE 3 HIGH SPEED OPERATOR HIGH SPEED OPERATOR METABOLIC HATTIE HATT[place] [address] [employer], THYROXINE 3 HIGH SPEED OPERATOR HIGH SPEED OPERATOR TOTAL HATTIE HATTIE CO HOS CO HOS US SOFT 71073 HAGENSCHN HAGENSCHN TISSUE 3 EIDER LASHON EICARLOS LASHON HEAD & [place] [address] [facility] CERVICAL 2 ANIBAL SPINE W/O RADIOLOGY CONTRAST ASSOCIAT MATERIAL GROUND A0425 [facility]GOLAN ANGOLAN MILEAGE 2 AMBULETT AMBULETT PER & & STATUTE AMBULANC AMBULANC MILE AMBULANCE A0429 [facility] ANGOL[facility] SERVICE 2 AMBULETT AMBULETT BLS & & EMERGENCY AMBULANC AMBULANC TRANSPORT ANES [address] [place] [facility] LOWER 2 MEDICAL ALB INTESTINE SERVICES ENDOSCOPY DISTAL DUODENUM EGD 37530 [facility] TRANSBELFORD 2 Y Y [facility] SINGLE/MU LTIPLE INJECTION J2250 [facility] 2 Y Y [facility] HCL PER 1 MG COLONOSCO 98531 [facility] PY 2 Y Y [facility] SINGLE/MU LTIPLE RINGERS J7120 [facility] LACTATE 2 Y Y INFUSION [facility] UP TO 1000 CC CUL BACT 67950 [facility] PIPPA 2 Y Y ANAERC [facility] ISOL XCPT UR BLOOD/[place] [address] [facility] SURG 2 Y Y PATHOLOGY [facility] GROSS&JANA ROSCOPIC EXAM INJECTION J3010 [facility] FENTANYL 2 Y Y CITRATE [facility] 0.1 MG FAT/LIPID 32216 [employer], S FECES 2 HIGH SPEED OPERATOR HIGH SPEED OPERATOR QUALITATI HATTIE [place] [address] [employer], CLOSTRIDI 2 HIGH SPEED OPERATOR HIGH SPEED OPERATOR UM HATTIE KUHN DIFFICILE [place] [address] [employer], MULT STEP 2 HIGH SPEED OPERATOR HIGH SPEED OPERATOR METHOD HATTIE KUHN NOS EACH CO HOS CO HOS ORGANISM RADEX 54296 [employer], [employer], FOOT 2 HIGH SPEED OPERATOR HIGH SPEED OPERATOR COMPLETE HATTIE KUHN MINIMUM 3 [place] [address] [facility] GAMMAGLOB 2 Y Y [facility] IGD IGG IGM EACH BLOOD 12371 [facility] COUNT 2 Y Y COMPLETE [facility] AUTOMATED C-REACTIV 30254 [facility] E PROTEIN 2 [place] [address] [facility] THYROID 2 Y Y STIMULATI [facility] NG HORMONE TSH COMPREHEN 53477 [facility] SIVE 2 Y Y METABOLIC [facility] PANEL IMMUNOASS 89771 [facility] AY 2 Y Y ANALYTE [facility] QUAL/SEMI QUAL MULTIPLE STEP SIMPLE 03801 HATTIE BROOKS REPAIR 2 CO DIOGENES F/E/E/N/L HOSPITAL /M 2.5CM/< SIMPLE 15651 [employer], REPAIR 2 HIGH SPEED OPERATOR HIGH SPEED OPERATOR F/E/E/N/L HATTIE KUHN /M CO HOS CO HOS 2.5CM/< GONADOTRO 65461 [facility] [employer], [facility] INC, PIN 2 HIGH SPEED OPERATOR HIGH SPEED OPERATOR CHORIONIC HATTIE HATTIE CO HOS CO HOS QUALITATI VE INJECTION J2001 [facility] [employer], [facility] INC, 2 HIGH SPEED OPERATOR HIGH SPEED OPERATOR LIDOCAINE HATTIE HATTIE HCL CO HOS CO HOS INTRAVENO US INFUS 10 MG RADEX 76423 [facility] [employer], [facility], SPINE 2 HIGH SPEED OPERATOR HIGH SPEED OPERATOR THORACIC HATTIE HATTIE 2 VIEWS CO HOS CO HOS THERAPEUT 59744 [facility] [employer], [facility], IC 2 HIGH SPEED OPERATOR HIGH SPEED OPERATOR PROPHYLAC HATTIE HATTIE TIC/DX CO HOS CO HOS INJECTION SUBQ/[place] [address] [facility] [employer] [facility], CERVICAL 2 HIGH SPEED OPERATOR HIGH SPEED OPERATOR SPINE W/O HATTIE HATTIE CONTRAST CO HOS CO HOS MATERIAL RADEX 48730 [facility] [employer], [employer] [facility], SPINE 2 HIGH SPEED OPERATOR HIGH SPEED OPERATOR LUMBOSACR HATTIE HATTIE AL 2/3 CO HOS CO HOS VIEWS INJECTION J1885 [facility] [employer], [employer] [facility], 2 HIGH SPEED OPERATOR HIGH SPEED OPERATOR KETOROLAC HATTIE HATTIE CO HOS CO HOS TROMETHAM INE [place] 15 [place] [address] MD DIEGO CORTEZ MD TRANSVAGI 2 STEPHEN STEPHEN NAL HEPATOBIL 59272 [place] SYST 2 [facility] GB W/[place] [address] [place] RADHA MAT ABDOMEN & 2 RADIOLOGY PELVIS W/O CONTRAST MATERIAL URINE 16546 [place] 2 [facility] VISUAL COLOR CMPRSN METHS BASIC 41277 [place] METABOLIC 2 [facility] CALCIUM TOTAL COLLECTIO 11294 [place] N VENOUS 2 [facility] VENIPUNCT URE THER 89669 [place] PROPH/DX 2 [facility] NJX IV [facility] PUSH SINGLE/1S T SBST/DRUG URNLS DIP 38362 [place] 2 [facility] STICK/TAB [facility] LET REAGENT AUTO MICROSCOP Y BLOOD 15587 [place] COUNT 2 [facility] AUTO&AUTO DIFRNTL WBC URINLS 68260 JEFE MAYBERRY DARRION DIP 2 STICK/TAB LET REAGNT NON-AUTO MICRSCPY CYTP C/V 49371 PATHOLOGY PICKLESIM AUTO THIN 2 & ER JR RADAMES LYR CYTOLOGY PREPJ SCR LAB MNL RESCR PHYS URINLS 24431 [facility] MAYBERRY [facility]ION DIP 2 STICK/TAB LET REAGNT NON-AUTO MICRSCPY IAADIADOO 82531 [facility] MAYBERRY DARRION 1 STREPTOCO CCUS GROUP A COLLECTIO 88585 JEFE MAYBERRY DARRION N VENOUS 1 B[place] [address] [facility] THYROXINE 1 AMERIC AMERIC TOTAL [facility] GENERAL 81500 [facility] HEALTH 1 AMERIC AMERIC PANEL [facility] HOLDING THYROID 71337 [facility] HORM 1 AMERIC AMERIC UPTK/THYR [facility] HOLD[facility] OID HORMONE BINDING RATIO RADEX 05546 HATTIE KUHN ELBOW 1 CO CO [facility] MINIMUM 3 [place] [address] MD DIEGO CORTEZ MD TRANSVAGI 1 [facility] [address] [facility] DISCHARGE 1 OSI OSI DAY MANAGEMEN T > 30 MIN INJECTION J2405 [facility] 1 Y [facility] PER 1 MG URNLS DIP 08759 [facility] 1 Y Y STICK/TAB [facility] LET RGNT AUTO W/O MICROSCOP Y COMPREHEN 44150 [facility] SIVE 1 Y Y METABOLIC [facility] [place] [address] [facility] INFUSION 1 Y Y HYDRATION [facility] EACH ADDITIONA L HOUR RINGERS J7120 [facility] LACTATE 1 Y Y INFUSION [facility] UP TO 1000 CC THER 13060 [facility] PROPH/DX 1 Y Y NJX IV [facility] PUSH SINGLE/1S T SBST/[place] [address] [facility] LIPASE 1 Y Y [facility] INJECTION J2270 [facility] MORPHINE 1 Y Y SULFATE [facility] UP TO 10 MG THERAPEUT 25604 [facility] IC 1 Y Y INJECTION HOSPITAL [facility] IV PUSH EACH NEW DRUG BLOOD 63973 [facility] COUNT 1 Y Y COMPLETE [facility] AUTO&AUTO DIFRNTL WBC INFUSION J7030 [facility] NORMAL 1 Y Y SALINE HOSPITAL [facility] SOLUTION 1000 CC DUP-SCAN 90018 HIEN RODRÍGUEZ ARTL RADHA 1 [facility] [place] ABDL/PEL/ SERV SCROT&/RP FOUNDATIO R ORGN COM US PELVIC 16314 [facility] NONOBSTET RADIOLOGY FERMÍN ASSOCIAT REAL-TIME IMAGE COMPLETE URINE 38107 HATTIE KUHN 1 CO CO [facility] VISUAL COLOR CMPRSN METHS SBSQ 62126 [place] [address] DREAD DREAD CARE/DAY 25 MINUTES INITIAL [address] [place] [address] OSI OSI CARE/DAY 70 MINUTES HOSPITAL G0378 HATTIE KUHN OBSERVATI 1 CO [facility] HOSPITAL SERVICE PER HOUR INJECTION J2550 HATTIE KUHN 1 CO CO [facility] INE HCL UP TO 50 MG BASIC 89512 HATTIE KUHN METABOLIC 1 CO CO PANEL [facility] CALCIUM TOTAL URNLS DIP 10388 HATTIE KUHN 1 CO CO STICK/TAB [facility] LET REAGENT AUTO MICROSCOP Y BLOOD 24621 HATTIE KUHN COUNT 1 CO CO COMPLETE [facility] AUTO&[place] [address] HATTIE KUHN INFUSION 1 CO CO THERAPY/P [facility] S /[place] [address] [place] [address] [place] [address] [place] ABDOMEN & 1 [facility] PELVIS [facility] W/CONTRAS T MATERIAL URNLS DIP 91128 [place] 1 [facility] STICK/TAB [facility] LET REAGENT AUTO MICROSCOP Y BLOOD 83232 [place] COUNT 1 [facility] AUTO&AUTO DIFRNTL WBC URINE 60639 [place] 1 [facility] VISUAL COLOR CMPRSN METHS COMPREHEN 93299 [facility] KASI SIVE 1 [facility] PANEL COLLECTIO 40541 [facility] N VENOUS 1 [facility] VENIPUNCT URE THER 33107 [facility] PROPH/DX 1 [facility] PUSH SINGLE/1S T SBST/DRUG RADEX 47214 [facility] HAND 1 FERMÍN MINIMUM 3 RADIOLOGY VIEWS ASSOCIAT APPLICATI 65221 HATTIE BLANK ON FINGER 1 CO [facility] STATIC IAADIADOO 24370 [facility] DARRION 1 [facility] CCUS GROUP A PRESSURIZ 74959 [facility] ED/NONPRE 0 CO CO SSURIZED [facility] INHALATIO N TREATMENT SMR PRIM 40704 [facility] SRC 0 CO CO GRAM/GIEM [facility] SA STAIN BCT FUNGI/DARELL L [facility] 49770 ROSAMARIA BLANK DISCHARGE 0 MANAGEMEN T 30 MIN/< CUL BACT 49770 [facility] XCPT 0 CO CO URINE [facility] BLOOD/STO OL AEROBIC ISOL URNLS DIP 17525 [facility] 0 CO CO STICK/TAB [facility] LET REAGENT AUTO MICROSCOP Y ELECTROLY 16056 [facility] TE PANEL 0 CO [facility] PRESSURIZ 55167 H[facility] ED/NONPRE 0 CO CO SSURIZED [facility] INHALATIO N TREATMENT US PELVIC 42717 [facility]IE [facility] 0 CO CO NONOBSTET [facility] FERMÍN REAL-TIME IMAGE COMPLETE BLOOD 84550 [facility] COUNT 0 CO CO SMEAR [facility] MCRSCP W/MNL DIFRNTL WBC COUNT [facility] [id number] [facility] OBSERVATI 0 CO [facility] ON HOSPITAL HOSPITAL SERVICE PER HOUR COLLECTIO 48488 HATTEI Jiménez VENOUS 0 CO CO BLOOD [facility] VENIPUNCT URE INITIAL 20908 [facility] 0 DREAD DREAD CARE/DAY 50 MINUTES COLLECTIO 42322 HATTIE Jiménez VENOUS 0 CO CO BLOOD [facility] [place] [address] H[facility] STREPTOCO 0 CO CO CCUS [facility] GROUP A PRESSURIZ 75085 [facility] ED/NONPRE 0 CO CO SSURIZED [facility] INHALATIO N TREATMENT BLOOD 07190 [facility] COUNT 0 CO CO SMEAR [facility] MCRSCP W/MNL DIFRNTL WBC COUNT RADIOLOGI 26967 [facility] C EXAM 0 CO CO CHEST 2 [facility] VIEWS FRONTAL&L ATERAL GONADOTRO 16747 [facility] PIN 0 CO CO CHORIONIC [facility] [place] [address] [facility] INFUSION 0 CO CO THERAPY/P [facility] ROPHYLAXI S /DX 1ST TO 1 HR URNLS DIP 37179 [facility] 0 CO CO STICK/TAB [facility] LET REAGENT AUTO MICROSCOP Y CUL BACT 42264 [facility] XCPT 0 CO CO URINE [facility] BLOOD/STO OL AEROBIC ISOL BASIC 85641 [facility] METABOLIC 0 CO CO PANEL [facility] CALCIUM TOTAL ANTIBODY 13891 [facility] INFLUENZA 0 CO CO VIRUS [facility] RADEX 00968 [facility] HAND 0 CO CO MINIMUM 3 [facility] VIEWS [facility] PELVIS [address] [facility] [place] [facility], 0 RADIOLOGY VALERIE D W/CONTRAS T MATERIAL URINLS 45204 [facility], DIP 0 MEDICAL DINAH R STICK/TAB [place] [address] [facility] [place] [facility], ABDOMEN 0 RADIOLOGY VALERIE D W/CONTRAS T MATERIAL BASIC 36166 [facility] METABOLIC 0 [facility] CALCIUM TOTAL BLOOD 72416 [facility] COUNT 0 [facility] AUTO&AUTO DIFRNTL WBC COLLECTIO 88357 KAS[facility] VILLASEÑOR N VENOUS 0 [facility] [place] [address] [facility] INSULIN 0 [facility] TOTAL DEHYDROEP 19230 [facility] IANDROSTE 0 [facility] JEWEL-SULF ATE GLUCOSE 39890 [facility] QUANTITAT 0 [facility] MORENITA [place] [address] [facility] PROLACTIN 0 [facility] [place] [address] [facility] THYROID 0 [facility] STIMULATI NG HORMONE TSH CULTURE 54862 [facility] BACTERIAL 0 [employer] [employer] QUANTTATI VE COLONY COUNT URINE URINLS 82217 [facility], DIP 0 MEDICAL DINAH R STICK/TAB CLINIC LET REAGNT NON-AUTO MICRSCPY URINE 52531 [facility] YOUNG, 0 MEDICAL DINAH R TEST CLINIC VISUAL COLOR CMPRSN METHS URINLS 84528 BLUEGRASS YOUNG, DIP 0 MEDICAL DINAH R STICK/TAB CLINIC LET REAGNT NON-AUTO MICRSCPY ORTHOPTIC 56234 CHILDRENS GRAEBE, 9 VISION ZEINAB S &/PLEOPTI ANDLEARNI C NG TRAINING W/MEDICAL DIRECTJ THERAPEUT 53467 CHILDRENS SYLVIEEBE, IC PX 1/> 9 VISION ZEINAB S AREAS ANDLEARNI EACH 15 [place] [address] CHILDRENS GRAEBE, 1/> AREAS 9 VISION ZEINAB S EACH 15 [place]LEARNI [place] [address] CHILDRENS GRAEBE, 1/> AREAS 9 VISION ZEINAB S EACH 15 ANDLEARNI MIN NG NEUROMUSC REEDUCA THERAPEUT 23375 CHILDRENS GRAEBE, IC PX 1/> 9 VISION ZEINAB S AREAS ANDLEARNI EACH 15 NG MIN EXERCISES ORTHOPTIC 35855 CHILDRENS GRAEBE, 9 VISION ZEINAB S &/PLEOPTI ANDLEARNI C NG TRAINING W/MEDICAL DIRECTJ ORTHOPTIC 52557 CHILDRENS GRAEBE, 9 VISION ZEINAB S &/PLEOPTI ANDLEARNI C NG TRAINING W/[place] [address] CHILDRENS GRAEBE, 1/> AREAS 9 VISION ZEINAB S EACH 15 ANDLEARNI MIN NG NEUROMUSC REEDUCA THERAPEUT 99956 CHILDRENS GRAEBE, IC PX 1/> 9 VISION ZEINAB S AREAS ANDLEARNI EACH 15 [place] [address] HATTIE KUHN ABDOMINAL 9 CO CO REAL [facility] TIME W/IMAGE DOCUMENTA TION RADIOLOGI 75963 HATTIE KUHN C 9 [facility]2 VIEWS URNLS DIP 76297 HATTIE KUHN 9 CO CO STICK/TAB [facility] LET REAGENT AUTO MICROSCOP Y RADEX HIP 59666 VJ CHAWLA, 9 ZEINAB S UNILATERA RADIOLOGY L COMPLETE ASSOCIATE MINIMUM 2 S PSC VIEWS RADEX 77409 HATTIE KUHN SHOULDER 9 CO CO [facility] MINIMUM 2 VIEWS CULTURE 90195 HATTIE KUHN BACTERIAL 9 CO [facility] QUANTTATI VE COLONY COUNT URINE RADEX 22183 HATTIE KUHN ELBOW [facility] MINIMUM 3 VIEWS THERAPEUT 58275 CHILDRENS JAHE, IC PX 1/> 9 VISION ZEINAB S AREAS ANDLEARNI EACH 15 NG MIN EXERCISES ORTHOPTIC 20570 SAMMIES SYLVIEEBE, 9 VISION ZEINAB S &/PLEOPTI ANDLEARNI C NG TRAINING W/[place] [address] CHILDRENS GRAEBE, 1/> AREAS 9 VISION ZEINAB S EACH 15 ANDLEARNI [place] [address] CHILDRENS GRAEBE, 1/> AREAS 9 VISION ZEINAB S EACH 15 ANDLEARNI MIN NG NEUROMUSC REEDUCA THERAPEUT 20489 CHILDRENS GRAEBE, IC PX 1/> 9 VISION ZEINAB S AREAS ANDLEARNI EACH 15 NG MIN EXERCISES ORTHOPTIC 29833 CHILDRENS SYLVIEEBE, 9 VISION ZEINAB S &/PLEOPTI ANDLEARNI C NG TRAINING W/MEDICAL DIRECTJ ORTHOPTIC 14797 JACKIE FALCON, 9 VISION ZEINAB S &/PLEOPTI ANDLEARNI C NG TRAINING W/MEDICAL DIRECTJ THERAPEUT 04823 JACKIE FALCON, IC PX 1/> 9 VISION ZEINAB S AREAS ANDLEARNI EACH [place] [address] JACKIE FALCON, 1/> AREAS 9 VISION ZEINAB S EACH 15 ANDLEARNI MIN NG NEUROMUSC REEDUCA SENSORMOT 02444 JACKIE FALCON, OR XM 9 VISION ZEINAB S W/COORDINATE 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 ANDLEARNI HILDA NG OCULAR DEVIJ W/I&R SPX FITTING 79376 [facility] SPECTACLE 9 [facility] ZEINAB Burroughs S XCPT ASSOCIATE APHAKIA S MONOFOCAL 1 VISN V2103 [facility] PLANO 9 [facility] ZEINAB S TO+/-4.00 ASSOCIATE D SPHER S 0.12-2.00 D CYL EA DETERMINA 64993 [facility] TION 9 [facility] ZEINAB S REFRACTIV ASSOCIATE E STATE S FRAMES V2020 [facility] PURCHASES 9 [facility] ZEINAB S ASSOCIATE S OPHTH 04477 FAMILY FALCON, MEDICAL 9 [facility] ZEINAB S XM&EVAL ASSOCIATE COMPRE S NEW PT 1/> [place] [address] HATTIE KUHN STREPTOCO 9 CO CO [facility] CUL BACT 62744 HATTIE KUHN XCPT 9 CO CO URINE [facility] BLOOD/STO OL AEROBIC ISOL ANTIBODY 13873 HATTIE KUHN INFLUENZA 9 [facility] CUL BACT 48115 HATTIE KUHN XCPT 9 CO CO URINE [facility] BLOOD/[place] [address] HATTIE KUHN STREPTOCO 9 CO CO [facility] [place] [address] HATTIE KUHN STREPTOCO 9 CO CO [facility] CUL BACT 51349 HATTIE KUHN XCPT 9 CO CO URINE [facility] BLOOD/STO OL AEROBIC ISOL THER 81903 HATTIE KUHN PROPH/DX 8 CO CO [facility] SUBQ/IM RADIOLOGI 69786 VALERIEAlex IVEY 8 ZEINAB S EXAMINATI RADIOLOGY ON ANKLE 2 VIEWS ASSOCIATE S [facility] RADIOLOGI 88876 JENNERS Alex CHAWLA 8 ZEINAB S EXAMINATI RADIOLOGY ON FOOT 2 VIEWS ASSOCIATE S [facility] RADIOLOGI 78859 Alex GUTHRIE 8 ZEINAB S EXAMINATI RADIOLOGY ON KNEE 1/2 VIEWS ASSOCIATE S [facility] RADEX 63731 HATTIE KUHN FOOT 8 CO CO [facility] MINIMUM 3 VIEWS RADIOLOGI 34082 HATTIE KUHN C 8 [facility] ON KNEE 3 VIEWS RADEX 95064 HATTIE KUHN ANKLE 8 CO CO [facility] MINIMUM 3 VIEWS DEMO&/KERWIN 25321 INGE ALCAZAR, L OF PT 8 CHAD B CHAD B UTILIZ AERSL GEN/NEB/I NHLR/IP BRNCDILAT 50931 INGE, INGE, RSPSE 8 CHAD B CHAD B SPMTRY PRE&POST- BRNCDILAT ADMN INTRACUTA 35604 INGE, INGE, NEOUS 8 CHAD B CHAD B TESTS W/ALLERGE KIERA EXTRACTS [facility] 70595 INGE, INGE, OUS TESTS 8 CHAD B CHAD B W/ALLERGE KIERA EXTRACTS [facility] 61981 [facility] DISCHARGE 7 Y OF [place] DAY [place] MANAGEMEN PEDIA T 30 MIN/< SBSQ 11531 [facility] 7 Y OF [facility] CARE/DAY [place] 25 PEDIA MINUTES SBSQ 47002 [facility] 7 Y OF [facility] CARE/DAY [place] 25 PEDIA MINUTES INITIAL 67473 [facility] 7 Y OF CARE/DAY [place] 70 PEDIA MINUTES ECG 55216 [facility] ROUTINE 7 Y OF ECG [place] W/LEAST PEDIA 12 LDS W/I&R Encounters Encounter Start End Date Code Location Performer Type Date OFFICE 65490 [facility] OUTPATIEN 7 7 ASTHMA III T NEW 45 ASSOC OF MINUTES TH OFFICE 04490 VELIA ZARAGOZALER- OUTPATIEN 7 7 CLINIC SE T VISIT 15 MINUTES [facility] 01901 [facility] 7 7 [facility] E MED EST [facility] DEPT [facility] DEPT PATIENT KIERA KIERA 18-39 YRS HOSPITAL [facility]TH[facility]OX[facility] - 7 7 [facility] [place] [facility] 7 7 [facility] 28439 [facility] 7 7 [facility] T VISIT TH DEPT [facility] DEPT 10 KIERA KIERA MINUTES OFFICE 41069 ORTHODOXY [facility] OUTPATIEN 7 7 HEALTH T NEW 60 MEDICAL MINUTES [facility] 45897 [facility] DE[facility] 7 7 EMERGENCY VISIT PHYS PSC HIGH SEVERITY& THREAT FUNCJ OFFICE 79875 NONA NONA OUTPATIEN 7 7 T NEW 20 MINUTES OFFICE 37265 KASI VILLAGOMEZ OUTPATIEN 7 7 PHYSICIAN T VISIT PRACTICE 15 L MINUTES OFFICE 40624 VELIA SCHMITZ- OUTPATIEN 7 7 CLINIC SE T VISIT 15 MINUTES EMERGENCY 50536 MIMI 7 7 [facility] DEPARTMEN INC T VISIT LOW/MODER SEVERITY EMERGENCY 72136 CLEMENT MUNIZ 7 7 PHYSICIAN DEPARTMEN S, PLLC T VISIT HIGH/URGE NT SEVERITY HOSPITAL MIMI - 7 7 [facility] OUTPATIEN INC T OFFICE 67855 [facility] 7 7 [facility] T VISIT HLTH DEPT HLTH DEPT 10 KIERA KIERA MINUTES OFFICE 77248 [facility]IN[facility] T VISIT 15 MINUTES EMERGENCY 62499 [facility] 6 6 DARRIN PAT DEPARTREGENCY [facility] T VISIT PHYS HIGH/URGE NT SEVERITY [facility]OSP[facility] [place] - 6 6 [facility] T EMERGENCY 33165 [place] 6 6 [facility] T VISIT MODERATE SEVERITY OFFICE 35874 [facility] 6 6 [facility] T VISIT 5 HLTH DEPT HLTH DEPT MINUTES KIERA KIERA OFFICE 16378 [facility] 6 6 [facility] T VISIT HLTH DEPT HLTH DEPT 10 KIERA KIERA MINUTES OFFICE 99942 VELIA BARNETT OUTPATIEN 6 6 CLINIC SE SARAH T VISIT 15 MINUTES EMERGENCY 03393 [place] 6 6 [facility] T VISIT LOW/MODER SEVERITY [facility]OSPITAL [place] - 6 6 [facility] T EMERGENCY 32251 [facility] 6 6 DARRIN [facility] EMERGENCY T VISIT PHYS MODERATE SEVERITY HOSPITAL [place] - 6 6 [facility] T EMERGENCY 43511 [facility] 6 6 DARRIN NANI DEPARTMEN EMERGENCY T VISIT PHYS HIGH/URGE NT SEVERITY EMERGENCY 17716 [place] 6 6 [facility] T VISIT MODERATE SEVERITY PERIODIC 56356 [facility] 6 6 [facility] E MED EST HLTH DEPT HLTH DEPT PATIENT KIERA KIERA 18-39 YRS EMERGENCY 96656 [place] 6 6 [facility] T VISIT MODERATE SEVERITY HOSPITAL [place] - 6 6 [facility] T EMERGENCY 59472 [facility] 6 6 DARRIN [facility] DEPART[facility]ENCY [facility] EMERGENC[facility] T VISIT PHYS HIGH/URGE NT SEVERITY OFFICE 36448 BLACK BHAVIN OUTPATIEN 6 6 DIGESTIVE [facility] T VISIT CARE 25 [facility] - 6 6 [facility] T OFFICE 87022 VELIA SCHMITZ-SHANON OUTPATIEN 6 6 CLINIC SE SARAH T VISIT 25 MINUTES OFFICE 60219 VANNESSACO VANNESSACO OUTPATIEN 6 6 DISTRICT DISTRICT T VISIT HLTH DEPT HLTH DEPT 10 KIERA KIERA MINUTES OFFICE 53030 VELIA LEZAMA [facility] 6 6 CLINIC T VISIT 15 MINUTES OFFICE 44692 BLACK DELCID OUTPATIEN 6 6 DIGESTIVE CEC T NEW 45 CARE MINUTES CENTER OFFICE 66878 VELIA SCHMITZ-SHANON OUTPATIEN 6 6 [facility]IN[facility] T VISIT 15 MINUTES OFFICE 83881 HATTIE RESENDIZ OUTPATIEN 6 6 [facility] T VISIT URGENT 25 TREAT MINUTES OFFICE 43415 [facility] [address] [facility] T VISIT HLTH DEPT TH DEPT 10 KIERA KIERA MINUTES OFFICE 95024 HATTIE RESENDIZ OUTPATIEN 6 6 [facility] T VISIT URGENT 25 TREAT MINUTES EMERGENCY 49029 VORCASEYOR VORKPOR 5 5 [facility] T VISIT HIGH/URGE NT SEVERITY OFFICE 56572 HATTIE ASTRID OUTPATIEN 5 5 [facility] T VISIT URGENT 25 TREAT MINUTES OFFICE 75368 [facility]ACO [facility] [address] [facility] T VISIT HLTH DEPT TH DEPT 10 KIERA KIERA MINUTES OFFICE 90865 EAR, NOSE SHASHY CONSULTAT 5 5 AND MIRANDA ION THROAT NEW/ESTAB SPECIAL PATIENT 60 MIN OFFICE 04844 HATTIE RESENDIZ OUTPATIEN 5 5 [facility] T VISIT URGENT 25 TREAT MINUTES EMERGENCY 56818 [facility] 5 5 [facility] T VISIT HIGH/URGE NT SEVERITY INITIAL 82846 [facility] 5 5 [facility] E TH DEPT [facility] DEPT MEDICINE KIERA KIERA NEW PT AGE 18-39YRS EMERGENCY 84493 MIMI 5 5 [facility] T VISIT LOW/MODER SEVERITY EMERGENCY 76143 CLEMENT HERNADEZ 5 5 PHYSICIAN [facility] T VISIT MODERATE SEVERITY HOSPITAL MIMI - 5 5 [facility] 5 [facility] T EMERGENCY 02916 [facility] 5 5 [facility] T VISIT HIGH/URGE NT SEVERITY EMERGENCY 96163 HERBERTH KEVIN DEPT 5 5 EDW EDW VISIT HIGH SEVERITY& THREAT [facility] 5 5 [facility] T OFFICE 21583 VELIA SCHMITZSHANON [facility] 5 5 CLIN[facility] T VISIT 15 MINUTES HOSPITAL [facility] 5 [facility] T OFFICE 24554 VELIA SCHMITZSHANON [facility] 5 5 CLINIC [facility] T VISIT 15 MINUTES EMERGENCY 77305 GORGEON 5 5 [facility] T VISIT HIGH/URGE NT SEVERITY OFFICE 67625 INGE ALCAZAR [facility] 5 5 CHAD CHAD T VISIT 25 MINUTES OFFICE 06752 VELIA OATES [facility] 4 4 CLINIC T VISIT 15 MINUTES EMERGENCY 62470 SESAR HERNADEZ DEPT 4 4 VISIT HIGH SEVERITY& THREAT FUNCJ OFFICE 56824 MEANS BUTROS OUTPATIEN 4 4 ADULT MARISEL T VISIT PRIMARY 15 CARE CLI MINUTES HOSPITAL MIMI - 4 4 MEM [facility] OUTPATIEN INC T OFFICE 04857 VELIA OATES OUTPATIEN 4 4 CLINIC T VISIT 15 MINUTES OFFICE 47918 MEANS BUTROS OUTPATIEN 4 4 ADULT MARISEL T VISIT PRIMARY 15 CARE CLI MINUTES OFFICE 73822 VELIA OATES OUTPATIEN 4 4 CLINIC T VISIT 15 MINUTES OFFICE 60413 MEANS BUTROS OUTPATIEN 4 4 ADULT MARISEL T VISIT PRIMARY 15 CARE CLI MINUTES EMERGENCY 94124 MIMI 4 4 [facility] DEPARTMEN INC T VISIT LOW/MODER SEVERITY HOSPITAL MIMI - 4 4 [facility] OUTPATIEN INC T EMERGENCY 12150 DEANGELO MUNIZ 4 4 MEDICAL [facility] T VISIT MODERATE SEVERITY OFFICE 07016 VELIA SCHMITZ- OUTPATIEN 4 4 CLINIC [facility] T VISIT 15 MINUTES OFFICE 76780 VELIA SCHMITZ- OUTPATIEN 4 4 CLINIC [facility] T VISIT 15 MINUTES OFFICE 27958 MEANS BUTROS OUTPATIEN 4 4 ADULT MARISEL T VISIT PRIMARY 15 CARE CLI MINUTES OFFICE 72501 INTEGRITY RICHARDS, OUTPATIEN 4 4 JR. JAM T VISIT ORTHOPAED 15 ICS SPORT MINUTES [facility] VIKY - 4 4 [facility] OUTPATIEN AUSTEN T EMERGENCY 26557 FLAVIO MUNIZ 4 4 JANA JANA DEPARTMEN T VISIT MODERATE SEVERITY OFFICE 29558 INTEGRITY CHATTHA OUTPATIEN 4 4 SHANNON T VISIT ORTHOPAED 15 ICS SPORT MINUTES OFFICE 33492 VELIA SCHMITZ- OUTPATIEN 4 4 CLINIC [facility] T VISIT 15 MINUTES OFFICE 62229 MOOKIE DAMICO OUTPATIEN 4 4 SHANNON SHANNON T NEW 30 MINUTES OFFICE 07843 LUIS FERNANDO LUIS FERNANDO CONSULTAT 4 4 LES LES ION NEW/ESTAB PATIENT 40 MIN OFFICE 66295 VELIA RICHARDSON OUTPATIEN 4 4 CLINIC SERA T VISIT 25 MINUTES OFFICE 02594 VELIA SCHMITZ- OUTPATIEN 4 4 CLINIC [facility]AH T VISIT 15 MINUTES OFFICE 49989 [facility] 4 4 [place] T [facility]IS[facility]ES [facility], - 4 4 HIGH SPEED OPERATOR OUTPATIEN HATTIE T CO HOS OFFICE 52374 [facility] 4 4 [place] T VISIT 15 MINUTES HOSPITAL [facility], - 4 4 HIGH SPEED OPERATOR OUTPATIEN HATTIE T CO HOS OFFICE 21735 [facility] 4 4 [place] T VISIT 10 MINUTES OFFICE 91955 INGE ALCAZAR OUTPATIEN 4 4 CHAD CHAD T VISIT 25 MINUTES OFFICE 93961 [facility] 4 4 [place] T VISIT 15 MINUTES OFFICE 50483 ASTRID RESENDIZ OUTPATIEN 4 4 KAREN KAREN T VISIT 15 MINUTES PERIODIC 65753 [facility] PREVENTIV 4 4 [place] E MED EST PATIENT 11-06YRS HOSPITAL [facility], - 4 4 HIGH SPEED OPERATOR OUTPATIEN HATTIE T CO HOS EMERGENCY 71692 [facility], 4 4 HIGH SPEED OPERATOR DEPARTMEN HATTIE T VISIT CO HOS HIGH/URGE NT SEVERITY OFFICE 53370 [facility] OUT[facility] 4 4 [place] T VISIT 10 MINUTES OFFICE 62807 [facility] 3 3 [place] T VISIT 15 MINUTES OFFICE 00705 INGE INGE OUTPATIEN 3 3 CHAD BONILLA T VISIT 25 MINUTES HOSPITAL [facility], - 3 3 HIGH SPEED OPERATOR [facility] 44141 [facility] 3 3 [place] T VISIT 15 MINUTES OFFICE 69154 INGE INGE OUTPATIEN 3 3 CHAD BONILLA T VISIT 15 MINUTES OFFICE 08010 ASTRID RESENDIZ [facility] 3 3 KAREN JONES T VISIT 15 MINUTES HOSPITAL [facility], - 3 3 HIGH SPEED OPERATOR [facility] HOS OFFICE 99886 INGE INGE CONSULTAT 3 3 CHAD CHAD ION NEW/ESTAB PATIENT 80 MIN HOSPITAL [place] - 3 3 [facility] T OFFICE 92889 [facility] 3 3 [place] T VISIT 15 MINUTES HOSPITAL [place] - 3 3 [facility] T OFFICE 88451 ALLRAN JR ALLRAN JR CONSULTAT 3 3 KASSANDRA KASSANDRA ION NEW/ESTAB PATIENT 40 MIN OFFICE 45616 [facility] 3 3 [place] T VISIT 15 MINUTES HOSPITAL [facility], - 3 3 HIGH SPEED OPERATOR [facility] OFF[facility] 37555 ASTRID RESENDIZ [facility] 3 3 KAREN JONES T VISIT 15 MINUTES EMERGENCY 43517 KARI PIERCE 3 3 MARIANA PUTNAMREGENCY [facility] T VISIT HIGH/URGE NT SEVERITY HOSPITAL [facility], - 3 3 HIGH SPEED OPERATOR INPATIENT [facility] UNIVERS[facility] - 3 3 [facility] INC, - 3 3 HIGH SPEED OPERATOR OUTPATIEN HATTIE T CO HOS OFFICE 08086 AHMED ADN AHMED ADN OUTPATIEN 3 3 T VISIT 15 MINUTES OFFICE 84911 VITOR ADLER OUTPATIEN 3 3 TONYA TONYA T NEW 30 MINUTES OFFICE 84134 VELIA SCHMITZ- OUTPATIEN 3 3 [facility] T VISIT 15 MINUTES HOSPITAL [facility], - 3 3 HIGH SPEED OPERATOR OUTPATIEN HATTIE T CO HOS OFFICE 13250 VELIA SCHMITZ- OUTPATIEN 3 3 [facility] T NEW 30 MINUTES OFFICE 64269 MARYANN MARYANN OUTPATIEN 3 3 ALICIA ALICIA T VISIT 40 MINUTES OFFICE 18185 AHMED ADN AHMED ADN OUTPATIEN 2 2 T VISIT 15 MINUTES OFFICE 83299 [facility] OUTPATIEN 2 2 T MANUEL T MANUEL T VISIT 25 MINUTES HOSPITAL UNIVERSIT - 2 2 Y OUTPATIEN [facility], - 2 2 HIGH SPEED OPERATOR OUTPATIEN HATTIE T CO HOS OFFICE 10697 [facility], OUTPATIEN 2 2 HIGH SPEED OPERATOR T VISIT 5 HATTIE MINUTES CO HOS HOSPITAL [facility], - 2 2 HIGH SPEED OPERATOR OUTPATIEN HATTIE T CO HOS EMERGENCY 19029 [facility], 2 2 HIGH SPEED OPERATOR DEPARTMEN HATTIE T VISIT CO HOS LOW/MODER SEVERITY OFFICE 72277 AHMED ADN AHMED ADN OUTPATIEN 2 2 T VISIT 15 MINUTES OFFICE 29474 AHMED ADN AHMED ADN OUTPATIEN 2 2 T NEW 60 MINUTES OFFICE 86248 FLOMENHOF FLOMENHOF CONSULTAT 2 2 T MANUEL T MANUEL ION NEW/ESTAB PATIENT 40 MIN HOSPITAL [facility] - 2 2 [facility] T EMERGENCY 34457 [facility], 2 2 HIGH SPEED OPERATOR DEPARTMEN HATTIE T VISIT CO HOS LIMITED/M INOR PROB EMERGENCY 99627 [facility], 2 2 HIGH SPEED OPERATOR [facility] HATTIE T VISIT CO HOS MODERATE SEVERITY HOSPITAL [facility], - 2 2 HIGH SPEED OPERATOR [facility] HATTIE T CO HOS OFFICE 20712 MD DIEGO CORTEZ MD OUTPATIEN 2 2 STEPHEN STEPHEN T VISIT 15 MINUTES OFFICE 93047 SARY OKEEFE CONSULTAT 2 2 JOSE JOSE ION NEW/ESTAB PATIENT 60 MIN HOSPITAL [facility] T OFFICE 22775 PER ALBARADO JR OUTPATIEN 2 2 VIRGINIE VIRGINIE T VISIT 15 MINUTES EMERGENCY 80032 [facility] 2 2 [facility] T VISIT HIGH/URGE NT SEVERITY EMERGENCY 92636 SESAR HERNADEZ DEPT 2 2 VISIT HIGH SEVERITY& THREAT FUNCJ OFFICE 17537 PER ALBARADO JR OUTPATIEN 2 2 VIRGINIE VIRGINIE T VISIT 15 MINUTES HOSPITAL [facility] 2 [facility] T OFFICE 72938 MD DIEGO CORTEZ MD OUTPATIEN 2 2 STEPHEN STEPHEN T VISIT 15 MINUTES OFFICE 35048 JEFE MAYBERRY DARRION OUTPATIEN 2 2 T VISIT 15 MINUTES OFFICE 11441 JEFE MAYBERRY DARRION OUTPATIEN 2 2 T VISIT 25 MINUTES OFFICE 19391 JEFE MAYBERRY DARRION OUTPATIEN 2 2 T VISIT 15 MINUTES OFFICE 33028 JEFE MAYBERRY DARRION OUTPATIEN 1 1 T VISIT 15 MINUTES OFFICE 43844 JEFE MAYBERRY DARRION OUTPATIEN 1 1 T VISIT 15 MINUTES EMERGENCY 15956 HATTIE 1 1 [facility] T V[facility]IT LIMITED/M INOR [facility] HATTIE - 1 1 [facility] T EMERGENCY 27878 HATTIE 1 1 [facility] T VISIT LOW/MODER SEVERITY OFFICE 26706 MD DIEGO CORTEZ MD OUTPATIEN 1 1 STEPHEN MITCHELL T NEW 30 MINUTES EMERGENCY 41678 HIEN EVI 1 1 MEDICAL [facility] SERV T VISIT FOUNDATIO HIGH/URGE NT SEVERITY EMERGENCY 50083 UNIVERSIT DEPT 1 1 Y VISIT HOSPITAL HIGH SEVERITY& THREAT [facility] UN[facility]ERS[facility] - 1 1 Y [facility] HOSPITAL [facility]IE - 1 1 [facility] T EMERGENCY 08059 [facility]IE 1 1 [facility] T VISIT HIGH/URGE NT SEVERITY [facility] T EMERG[facility]Y 23596 [facility] 1 [facility] T VISIT HIGH/URGE NT SEVERITY OFFICE 83719 REJI MAYBERRY DARRION OUTPATIEN 1 1 MEDICAL T VISIT CLINIC 25 MINUTES EMERGENCY 80617 HATTIE 1 1 [facility] T VISIT LOW/MODER SEVERITY HOSPITAL [facility] - 1 1 [facility] T OFFICE 66320 REJI MAIER OUTPATIEN 1 1 MEDICAL T VISIT CLINIC 25 MINUTES OFFICE 76448 [facility]I ANI T VISIT 15 MINUTES EMERGENCY 92238 [facility] DEPT 0 0 CO VISIT HOSPITAL HIGH SEVERITY& THREAT [facility] HATTIE - 0 0 [facility] T OFFICE 15858 REJI ALBARADO CHE OUTPATIEN 0 0 MEDICAL T VISIT CLINIC 15 MINUTES EMERGENCY 38052 [facility]IE 0 0 [facility] T VISIT MODERATE SEVERITY HOSPITAL [facility] - 0 0 [facility] T OFFICE 89101 REJI ALBARADO OUTPATIEN 0 0 MEDICAL DINAH R T VISIT CLINIC 25 MINUTES HOSPITAL [facility] - 0 0 [facility] T OFFICE 53190 SPIREK, NU WITTPATIEN 0 0 [facility] J MONROE J T NEW 30 MINUTES OFFICE 17161 NU GUAJARDOPATIEN 0 0 MEDICAL DINAH R T VISIT CLINIC 25 MINUTES PERIODIC 38648 REJI ALBARADO PREVENTIV 0 0 MEDICAL DINAH R E MED EST CLINIC PATIENT OFFICE 26870 [facility] GONZALO OUTPATIEN 9 9 [facility] MAN[facility] A T VISIT INTERNAL 15 MED MINUTES HOSPITAL [facility] - 9 9 [facility] T EMERGENCY 95927 [facility] JAIN 9 9 [place] , [facility] T VISIT MODERATE SEVERITY HOSPITAL [facility] - 9 9 [facility] T EMERGENCY 21006 [facility]IE 9 9 [facility] T VISIT LOW/MODER SEVERITY OFFICE 41760 [facility] GONZALO OUTPATIEN 9 9 [facility] T VISIT INTERNAL 15 MED MINUTES OFFICE 47963 [place] JOHN OUTPATIEN 9 9 [facility], T VISIT INTERNAL MOODY F 15 MED MINUTES HOSPITAL [facility]IE Gong 9 9 [facility] T HOSPITAL [facility] Castaneda 9 [facility] T OFFICE 30332 LICKRYS PROCTOR 9 9 [facility] D[facility]GLAS T VISIT INTERNAL 10 MED MINUTES HOSPITAL [facility]IE - 9 9 [facility] T EMERGENCY 41497 [facility]IE 8 8 [facility] T VISIT LIMITED/M INOR PROB HOSPITAL [facility]ATTIE - 8 8 [facility] T EMERGENCY 60911 [facility]IE BLANK, 8 8 [facility] T VISIT LOW/MODER SEVERITY HOSPITAL [facility]IE Gong 8 8 [facility] T EMERGENCY 43744 [facility]IE 8 8 [facility] T VISIT LIMITED/M INOR PROB OFFICE 54990 [place] KRYS WREN 8 8 [facility] DOU[facility] T VISIT INTERNAL 10 MED MINUTES OFFICE 74618 INGE ALCAZAR, CONSULTAT 8 8 CHAD B CHAD B ION NEW/ESTAB PATIENT 40 MIN OFFICE 35624 LICKRYS PROCTOR 8 8 [facility] DOU[facility] T VISIT INTERNAL 15 MED MINUTES
--- OUTSIDE RECORDS SUMMARY | 2017-09-02 18:55 | External Medical Summary Rpt | CCD ---
Author Author , SJ Organization SJ Address Unknown Phone .Intrinsic-ID Care Team Providers Care Account Coordinator Name Role Phone [employer] Unavailable Unavailable [...] FERNANDO LES, LUIS FERNANDO Unavailable Unavailable LES [facility] Unavailable Unavailable [facility], [facility] Unavailable Unavailable MEDICAL GROUP, [facility] BEINEKE NANI, BEINEKE Unavailable Unavailable NANI CURRAN AURORA, CURRAN Unavailable Unavailable AURORA BESSON, MANE A, Unavailable Unavailable BESSON, MANE A [employer] Unavailable Unavailable INC., [employer] LEZAMA, LEZAMA Unavailable Unavailable LEZAMA LASHON, LEZAMA LASHON Unavailable Unavailable [facility] Unavailable Unavailable [facility], [facility] PHYSICIAN Unavailable Unavailable PRACTICE L, [facility] [employer] [employer] Unavailable Unavailable CORBIN JAM, CORBIN JAM Unavailable Unavailable [facility], Unavailable Unavailable [facility] SARAH, Unavailable Unavailable [facility] SARAH BUTROS MARISEL, BUTROS Unavailable Unavailable MARISEL [facility], Unavailable Unavailable [facility] PIERCE MARIANA, PIERCE Unavailable Unavailable MARIANA PIERCE MARIANA, PIERCE Unavailable Unavailable MARIANA [facility] Unavailable Unavailable [facility], [facility] Unavailable Unavailable [facility], [facility] ANNE ALDEN, ANNE Unavailable Unavailable ALDEN CHATTHA SHANNON, CHATTHA Unavailable Unavailable SHANNON [facility] Unavailable Unavailable [facility], [facility] WAI BARNETT, WAI [...] [facility] MCINTYRE, MCINTYRE Unavailable Unavailable [facility] Unavailable Unavailable GROUP PS, [facility] Unavailable Unavailable [facility], [facility], Unavailable Unavailable [facility] Unavailable Unavailable [facility], [facility] Unavailable Unavailable [facility], [facility] Unavailable Unavailable [facility] Unavailable Unavailable HOLDINGS, [facility] [facility], Unavailable Unavailable [facility] ADLER TONYA, ADLER Unavailable Unavailable TONYA [...] B MAUL PRANAV, MAUL PRANAV Unavailable Unavailable [facility] Unavailable Unavailable ASSOCIAT, [facility] MOODY LOPEZ JR Unavailable Unavailable F, JHON RODRIGUEZ, MOODY F [facility]available Unavailable CARE [facility], [facility] Unavailable Unavailable CO [facility], [facility] MAYBERRY DARRION, MAYBERRY DARRION Unavailable Unavailable MAY[facility] DARRION, MAYBERRY DARRION Unavailable Unavailable [facility], Unavailable Unavailable [facility] HERBERTH EDW, HERBERTH Unavailable Unavailable EDW HERBERTH EDW, HERBERTH Unavailable Unavailable EDW MD STEPHEN CORTEZ, DIEGO, Unavailable Unavailable MD [facility], Unavailable Unavailable [facility] Unavailable Unavailable AMBULANCE SE, [facility] AMBULANCE SE [facility] Unavailable Unavailable AMBULANCE SE, [facility] AMBULANCE SE [facility] Unavailable Unavailable URGENT TREAT, [facility]RGENT TREAT [facility], Unavailable Unavailable PLLC, [facility] SCHULTE CHR, SCHULTE CHR Unavailable Unavailable SCHUL[facility] CH[facility], [facility] Unavailable Unavailable [facility] Unavailable Unavailable LAB, [facility] PICKLESIMER JR RADAMES, Unavailable Unavailable [facility] Unavailable Unavailable [facility], [facility] PRAKASH MUH, PRAKASH Unavailable Unavailable [...] [facility], Unavailable Unavailable [facility] Unavailable Unavailable EQUIPME, [facility] Unavailable Unavailable EMERGENCY PHYS, [facility] SPIREK ANI, SPIREK Unavailable Unavailable ANI [facility] ANI, SPIREK Unavailable Unavailable ANI [facility], [facility] J, Unavailable Unavailable SPIREK, [facility] Unavailable Unavailable [facility], [facility] EVI MAR, EVI Unavailable Unavailable [facility] Unavailable Unavailable [facility], [facility] BROOKS DIOGENES, BROOKS Unavailable Unavailable DIOGENES SWINEY PAT, SWINEY Unavailable Unavailable PAT SWINEY PAT, SWINEY Unavailable Unavailable PAT TANOUS, JR EDW, Unavailable Unavailable TANOUS, JR EDW TANOUS, JR EDW, Unavailable Unavailable TANOUS, JR EDW ELADIO, ELADIO Unavailable Unavailable MONTILLA MOL, MONTILLA MOL Unavailable Unavailable [facility] Unavailable Unavailable LLC, [facility] MARYANN ALICIA, MARYANN Unavailable Unavailable ALICIA MARYANN ALICIA, MARYANN Unavailable Unavailable [facility], Unavailable Unavailable [facility] Unavailable [facility] VILLAFLOR OSI, Unavailable Unavailable [facility] OSI VILLAFLOR OSI, Unavailable Unavailable VILL[facility]FLOR OSI VORKPOR EMIGDIO, VORKPOR Unavailable Unavailable EMIGDIO VORKPOR EMIGDIO, VORKPOR Unavailable Unavailable EMIGDIO [facility] Unavailable Unavailable #[id number], [id number] # Unavailable Unavailable [id number], [facility] # [id number] [facility] Unavailable Unavailable DEPT KIERA, [facility] Un[facility] DEPT K[facility]A, [facility] DE[facility] K[facility]A YONGBANG ALB, Unavailable [...] ASTHMA NONSPECIFIC ASSOC OF TH SKIN ERUPTION [id number] ADVERS EFF 08-01-2017 [facility] RX MEDS [facility] BIO ASSOC OF SUBSTANCES INIT ENC [id number] ANAPHYLACTI 08-01-2017 [facility] & C SHOCK ASTHMA UNSPECIFIED ASSOC OF TH INITIAL ENCOUNTER J029 ACUTE 06-27-2017 [facility] PHARYNGITIS [facility]IC UNSPECIFIED J4521 MILD 06-27-2017 [facility] INTERMITTEN CLINIC T ASTHMA WITH ACUTE EXACERBATIO N R198 OTH SPEC SX 06-13-2017 [facility] INVLV THE L[facility]SIE DIGESTV SYS & ABD E27543 ENCOUNTER 06-07-2017 [facility] 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 DISTRICT GENERAL RTN HLTH DEPT [...] TEST RESULT KIERA NEGATIVE R5383 OTHER 06-06-2017 [facility] FATIGUE [facility]ALTH L[facility] Z0000 ENCOUNTER 06-06-2017 [facility] GEN ADULT HEALTH MED EXAM LISSIE W/O ABNORMAL FIND K5900 CONSTIPATIO 05-16-2017 [facility] [place] RADIOLOGY UNSPECIFIED R109 UNSPECIFIED 05-16-2017 [facility] R197 DIARRHEA 05-16-2017 [facility] [place] UNSPECIFIED RADIOLOGY R8290 UNSPECIFIED 05-16-2017 [facility] ABNORMAL ELIZABETH FINDINGS IN HOLDINGS URINE Q3261JR TOX EFF 02-08-2017 [facility] SOURCE GROUP ACC INITIAL ENC E78027 MIGRAINE 02-07-2017 [facility] UNS NOT EMERGENCY INTRACT W/O PHYS PSC STATUS MIGRAINOSUS R12755 UNSPECIFIED 02-07-2017 [facility] ASTHMA HEALTH UNCOMPLICAT LISSIE ED K589 IRRITABLE 02-07-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[facility] BOWEL HEALTH SYNDROME LISSIE WITHOUT DIARRHEA M4606 SPINAL 02-07-2017 NONA ENTHESOPATH Y LUMBAR REGION M545 LOW BACK 02-07-2017 NONA PAIN J28470 MUSCLE 02-07-2017 NONA SPASM OF BACK M9903 SEGMENTAL & 02-07-2017 NONA SOMATIC DYSFUNCTION OF LUMBAR REGION M9904 SEGMENTAL & 02-07-2017 NONA SOMATIC DYSFUNCTION OF SACRAL REGION R1110 VOMITING 02-07-2017 BRUNO FAYETTE UNSPECIFIED URBAN COGOVT R410 DISORIENTAT 02-07-2017 BRUNO FAYETTE ION URBAN UNSPECIFIED COGOVT R4182 ALTERED 02-07-2017 [facility] STATUS ASSOC UNSPECIFIED R51 HEADACHE 02-07-2017 BRUNO FAYETTE URBAN COGOVT R569 UNSPECIFIED 02-07-2017 [facility] CONVULSIONS LISSIE [id number] STRAIN 02-07-2017 NONA MUSCLE FASCIA & TENDON LOW BACK INITIAL Z833 FAMILY 02-07-2017 [facility] HISTORY OF HEALTH DIABETES LISSIE MELLITUS Z880 ALLERGY 02-07-2017 [facility] STATUS TO HEALTH PENICILLIN LIS[facility]E Z888 ALLERGY 02-07-2017 [facility] STATUS OT HEALTH RX MEDS & LISSIE BIOLOG SUBSTANC STS J101 FLU D/T OTH 01-17-2017 [facility] ID FLU CLINIC VIRUS OTH RESP MANIFESTATI ONS R05 COUGH 01-17-2017 [facility] J209 ACUTE 12-24-2016 [facility] UNSPECIFIED INC J40 BRONCHITIS 12-24-2016 [facility], SPECIFIED PLLC ACUTE OR CHRONIC Z7689 PERSONS 12-15-2016 [facility]NCOUNTER [facility] HLTH DEPT OTH KIERA CIRCUMSTANC ES J020 STREPTOCOCC 12-10-2016 [facility] AL CLINIC PHARYNGITIS V34543 PAIN IN 10-23-2016 [facility] RIGHT N EMERGENCY SHOULDER PHYS N43571 PAIN IN 10-23-2016 [facility] [place] RIGHT ELBOW RADIOLOGY Z36288 PAIN IN 10-23-2016 [facility] [place] RIGHT KNEE RADIOLOGY R0781 PLEURODYNIA 10-23-2016 [facility]0789 OTHER CHEST 10-23-2016 [facility] [place] PAIN RADIOLOGY F41806U ABRASION OF 10-23-2016 [facility] RIGHT N EMERGENCY ELBOW PHYS INITIAL ENCOUNTER Q76248L ABRASION 10-23-2016 [facility] RIGHT KNEE N EMERGENCY INITIAL PHYS ENCOUNTER Y77798 OTHER LONG 10-23-2016 [place] TERM COMMUNITY CURRENT [...] AGE R040 EPISTAXIS 06-07-2016 [facility] [place] RADIOLOGY U5091HB CONTUSION 06-07-2016 [facility] NOSE N EMERGENCY INITIAL PHYS ENCOUNTER Z9049 ACQUIRED 06-07-2016 [place] ABSENCE OTH COMMUNITY SPEC PARTS HOSPITAL DIGESTIVE TRACT K200 EOSINOPHILI 05-12-2016 BL[facility] C DIGESTIVE ESOPHAGITIS CARE CENTER R112 NAUSEA WITH 05-12-2016 [facility] DIGESTIVE UNSPECIFIED CARE CENTER B372 CANDIDIASIS 05-06-2016 [facility] OF SKIN ELIZABETH AND NAIL HOLDINGS E538 DEFICIENCY 05-06-2016 [facility] OF OTHER ELIZABETH SPECIFIED B HOLDINGS GROUP VITAMINS M546 PAIN IN 05-06-2016 [facility] THORACIC ELIZABETH SPINE HOLDINGS N62 HYPERTROPHY 05-06-2016 [facility] OF BREAST ELIZABETH HOLDINGS R12 HEARTBURN 05-06-2016 [facility] ELIZABETH HOLDINGS K219 GASTRO-ESOP 04-28-2016 [facility] REFLUX ANESTHESIA DISEASE GROUP PS WITHOUT ESOPHAGITIS A0839 OTHER VIRAL 01-15-2016 [facility] ENTERITIS [facility] URGENT TREAT J4530 MILD 01-15-2016 [facility] ASTHMA URGENT UNCOMPLICAT TREAT ED U51145 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[facility] HL[facility] DEPT DEPENDENCE KIERA J028 ACUTE 11-24-2015 [facility] PHARYNGITIS [facility] DUE TO URGENT OTHER SPEC TREAT ORGANISMS J4522 MILD 11-24-2015 [facility] T ASTHMA URGENT WITH STATUS TREAT ASTHMATICUS R062 WHEEZING 11-24-2015 [facility] URGENT TREAT R102 PELVIC AND 10-17-2015 VORKPOR EMIGDIO PERINEAL PAIN D529 FOLATE 09-10-2015 [facility] DEFICIENCY DISTRICT ANEMIA HLTH DEPT UNSPECIFIED KIERA Z23 ENCOUNTER 09-10-2015 [facility] FOR DISTRICT IMMUNIZATIO HLTH DEPT N KIERA R1310 DYSPHAGIA 09-05-2015 EAR, NOSE UNSPECIFIED AND THROAT SPECIAL R1313 DYSPHAGIA 09-01-2015 [facility] PHASE URGENT TREAT 5589 OTH&UNSPEC 06-14-2015 RANI BEAL NONINFECTIO US GASTROENTER ITIS&COLITI S 33097 NAUSEA WITH 06-14-2015 [facility] [place] RADIOLOGY 01414 ABDOMINAL 06-14-2015 RANI BEAL PAIN RIGHT LOWER QUADRANT V2549 SURVEILLANC 06-10-2015 [facility] E OTH PREV DISTRICT PRSC [facility] DEPT CONTRACEPT KIERA METHOD V2689 OTHER 06-10-2015 [facility] SPECIFIED DISTRICT PROCREATIVE [facility] DEPT MANAGEMENT KIERA 84752 ASTHMA, 05-08-2015 [facility] UNSPECIFIED [facility] , INC UNSPECIFIED STATUS 01007 UNSPECIFIED 05-08-2015 [facility] SITE OF PHYSICIANS, ANKLE PLLC SPRAIN AND STRAIN 2299 BENIGN 05-06-2015 [place] NEOPLASM OF [facility] UNSPECIFIED SITE 5990 URINARY 05-06-2015 SWINEY PAT TRACT INFECTION SITE NOT SPECIFIED 6202 OTHER AND 05-06-2015 SWINE[facility] PAT UNSPECIFIED OVARIAN CYST 96953 ABDOMINAL 05-06-2015 [place] PAIN, [facility] UNSPECIFIED HOSPITAL SITE 7919 OTHER 05-06-2015 [place] NONSPECIFIC COMMUNITY FINDING HOSPITAL EXAMINATION OF URINE V140 PERSONAL 05-06-2015 [place] HISTORY OF COMMUNITY ALLERGY TO HOSPITAL PENICILLIN V1582 PERS HX 05-06-2015 [place] TOBACCO USE COMMUNITY PRESENTING HOSPITAL HAZARDS HEALTH 14695 PAIN IN 02-22-2015 [facility] [place] JOINT RADIOLOGY PELVIC REGION AND THIGH 39537 CHEST PAIN 02-22-2015 [facility] UNSPECIFIED [facility] AMBULANCE SE 8470 NECK SPRAIN 02-22-2015 [facility] EDW AND STRAIN 8472 LUMBAR 02-22-2015 [facility] EDW SPRAIN AND STRAIN 9221 CONTUSION 02-22-2015 [facility] EDW OF CHEST WALL 9222 CONTUSION 02-22-2015 [facility] EDW OF ABDOMINAL WALL 70797 INJURY OF 02-22-2015 [facility] [place] FACE AND RADIOLOGY NECK OTHER AND UNSPECIFIED 76368 OTHER 02-22-2015 [facility] [place] INJURY OF RADIOLOGY OTHER SITES OF TRUNK 3688 OTHER 02-03-2015 [facility] SPECIFIED MEDICAL VISUAL IMAGING ASS DISTURBANCE S 7231 CERVICALGIA 02-03-2015 [facility] 6259 UNSPEC 12-19-2014 [facility] [place] SYMPTOM RADIOLOGY ASSOC W/FEMALE GENITAL ORGANS 36872 ABDOMINAL 12-19-2014 [place] TENDERNESS [facility] RIGHT LOWER HOSPITAL QUADRANT V1329 PERSONAL HX 12-19-2014 [facility] SYSTEM&OBST ETRIC D/O 7804 DIZZINESS 12-11-2014 [facility] AND CLINIC GIDDINESS 02651 ACUTE 12-03-2014 IN[facility] SEROUS CHAD OTITIS MEDIA 4770 ALLERGIC 12-03-2014 INGE RHINITIS CHAD DUE TO POLLEN 4778 ALLERGIC 12-03-2014 INGE RHINITIS CHAD DUE TO OTHER ALLERGEN 68194 EXTRINSIC 12-03-2014 INGE ASTHMA, CHAD WITH EXACERBATIO N 0088 INTESTINAL 11-01-2014 HOUSVINH OLIVIER INFECTION DUE TO OTHER ORGANISM NEC 93511 DIARRHEA 11-01-2014 RACHEL SOY 5362 PERSISTENT 10-31-2014 KABA SATYA VOMITING 06105 SHORTNESS 10-27-2014 [facility] 38330 ASTHMA 10-24-2014 [facility] UNSPECIFIED CLINIC WITH EXACERBATIO N 29595 UNSPECIFIED 10-23-2014 [facility] SLEEP PRIMARY DISTURBANCE CARE CLI 02635 INSOMNIA 10-23-2014 [facility] ADULT UNSPECIFIED PRIMARY CARE CLI 3829 UNSPECIFIED 10-15-2014 [facility] OTITIS ELIZABETH MEDIA HOLDINGS 462 ACUTE 10-15-2014 [facility] PHARYNGITIS ELIZ[facility]ETH HOLDINGS 72285 GENERALIZED 10-15-2014 [facility] PAIN ELIZABETH HOLDINGS 0549 HERPES 10-10-[address] [facility] WITHOUT [facility] MENTION OF COMPLICATIO N 0340 STREPTOCOCC 10-09-2014 [facility] AL SORE CLINIC THROAT 06557 UNSPECIFIED 09-30-2014 [facility] INFECTIVE CLINIC OTITIS EXTERNA 7862 COUGH 09-30-2014 [facility] 4779 ALLERGIC 08-22-2014 [facility] RHINITIS PRIMARY CAUSE CARE CLI UNSPECIFIED 7245 UNSPECIFIED 08-22-2014 [facility]ULT BACKACHE PRIMARY CARE CLI 7177 CHONDROMALA 08-14-2014 [facility] S SPORT 01315 PAIN IN 08-10-2014 [facility] JOINT, [place] LEG AUSTEN 53130 PAIN IN 07-30-2014 [facility] JOINT, MEDICAL SHOULDER IMAGING ASS REGION 8409 SPRAIN&STRA 07-30-2014 FLAVIO JANA IN UNSPEC SITE SHOULDER&UP PER ARM E9288 OTHER 07-30-2014 FLAVIO JANA ACCIDENT 95411 SPRAIN AND 07-12-2014 SCHULTE CHR STRAIN OF DELTOID OF ANKLE 76290 UNSPECIFIED 06-11-2014 LUIS FERNANDO LES TINNITUS 99531 SUBJECTIVE 06-11-2014 [place] TINNITUS PHYSICIAN PRACTICE L 3899 UNSPECIFIED 06-11-2014 [facility] HEARING PHYSICIAN LOSS PRACTICE L 39509 UNSPECIFIED 06-06-2014 [facility] VAGINITIS CLINIC AND VULVOVAGINI TIS 7821 RASH AND 06-06-2014 [facility] OTHER CLINIC NONSPECIFIC SKIN ERUPTION 98832 UNSPECIFIED 05-31-2014 [facility] OTALGIA CLINIC 70024 PAIN IN 05-31-2014 [facility] JOINT, CLINIC ANKLE AND FOOT 98973 OTHER 02-25-2014 INGE CHRONIC CHAD ALLERGIC CONJUNCTIVI TIS 82517 EXTRINSIC 02-25-2014 INGE ASTHMA, CHAD UNSPECIFIED 7840 HEADACHE 02-13-2014 [facility] [place] 4659 ACUTE URIS 02-01-2014 ASTRID JONES OF UNSPECIFIED SITE V202 ROUTINE 01-14-2014 [place] INFANT OR [place] CHILD HEALTH CHECK 84712 WHEEZING 12-20-2013 [facility] ANIBAL V0481 NEED 12-06-2013 [facility] PROPHYLACT [place] C VACCINATION &INOCULATIO N FLU 80406 UNSPECIFIED 11-08-2013 [facility] ACUTE [place] NONSUPPURAT MORENITA OTITIS MEDIA 4772 ALLERGIC 11-05-2013 [facility] RHINITIS CHAD DUE TO ANIMAL HAIR AND DANDER V727 DIAGNOSTIC 11-05-2013 [facility] SKIN AND CHAD SENSITIZATI ON TESTS 7295 PAIN IN 10-30-2013 [facility], SOFT STICK INSERTER TISSUES OF [place] 7823 EDEMA 10-30-2013 [facility], STICK INSERTER [place] [facility] 7881 DYSURIA 10-30-2013 [facility] [place] 9599 INJURY 10-30-2013 HAGENSCHNEI OTHER AND CARLOS LASHON UNSPECIFIED UNSPECIFIED SITE 39421 ACUT 10-11-2013 IN[facility] SUPPRATV CHAD OTITIS MEDIA W/O SPONT RUP EARDRUM V720 EXAMINATION 10-11-2013 DREW OF EYES GRE AND VISION 08791 DISORDERS 10-09-2013 ASTRID NAN OF SOFT TISSUE UNSPECIFIED 4739 UNSPECIFIED 09-20-2013 [facility] SINUSITIS CHAD 17959 EXTRINSIC 09-20-2013 [facility] ASTHMA WITH CHAD STATUS ASTHMATICUS 37374 OBESITY, 09-07-[address] [facility] [address] [facility] 87352 CHRONIC 09-07-2013 JR TANIA CHOLECYSTIT EDW IS 5758 OTHER 09-07-2013 SIEN[facility] ANT SPECIFIED DISORDER OF GALLBLADDER 5759 UNSPECIFIED 09-04-2013 [place] DISORDER [facility] GALLBLADDER V7284 UNSPECIFIED 09-04-2013 [facility] PRE-OPERATI HOSPITAL VE EXAMINATION 30701 ABDOMINAL 08-08-2013 RUSSEL RHO PAIN RIGHT UPPER QUADRANT 91162 VOMITING 07-28-2013 [facility], ALONE [facility] 486 PNEUMONIA, 06-20-2013 HAGENSCHNEI ORGANISM CARLOS LASHON UNSPECIFIED 4660 ACUTE 06-18-2013 PIERCE MARIANA BRONCHITIS 2150 OTH HANK 04-10-2013 ADLER TONYA NEOPLSM CNCTV&OTH SFT TISS HEAD FCE&NCK 89596 NEOPLASMS 04-10-2013 HOWARD JANA UNSPECIFIED NATURE OTH SPECIFIED SITES 90683 ESOPHAGEAL 04-10-2013 [facility] 7856 ENLARGEMENT 04-10-2013 [facility] NODES V7263 PRE-PROCEDU 04-02-2013 [facility], RAL STICK INSERTER LABORATORY [place] EXAMINATION HOS 2893 LYMPHADENIT 03-26-2013 VITOR TONYA IS UNSPECIFIED EXCEPT MESENTERIC 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 7822 LOCALIZED 03-13-2013 [facility] SUPERFICIAL CLINIC SWELLING MASS OR LUMP 7831 ABNORMAL 02-28-2013 [facility], WEIGHT GAIN STICK INSERTER [facility] HOS 7842 SWELLING 02-28-2013 [facility], MASS OR [facility] IN [facility] HEAD AND HOS NECK V770 SCREENING 02-28-2013 [facility], FOR THYROID STICK INSERTER DISORDER [facility] HOS V771 SCREENING 02-28-2013 [facility], FOR STICK INSERTER DIABETES [facility] MELLITUS HOS 6119 UNSPECIFIED 12-07-2012 MARYANN ALICIA BREAST DISORDER 6262 EXCESSIVE 12-07-2012 MARYANN ALICIA OR FREQUENT MENSTRUATIO N 79666 OTHER 12-07-2012 MARYANN ALICIA MALAISE AND FATIGUE 58230 HEAD 11-08-2012 ENGLISH INJURY, AMBULETT & UNSPECIFIED AMBULANC 7291 UNSPECIFIED 11-01-2012 AHMED ADN MYALGIA AND MYOSITIS 05285 ABDOMINAL 11-01-2012 AHMED ADN PAIN OTHER SPECIFIED SITE 66066 EOSINOPHILI 09-19-2012 FLOMENHOFT C MANUEL ESOPHAGITIS 2883 EOSINOPHILI 08-28-2012 [facility] H[facility] 5368 DYSPEPSIA&O 08-28-2012 [facility] DISORDERS FUNCTION STOMACH 5379 UNSPECIFIED 08-28-2012 [facility] STOMACH HOSPI AND DUODENUM 5699 UNSPECIFIED 08-28-2012 [facility] DISORDER [facility] OF HOSPI INTESTINE 86153 NAUSEA 08-28-2012 [facility] 59512 ABDOMINAL 08-28-2012 [place] [facility], LEFT SERVICES LOWER QUADRANT 96390 ABDOMINAL 08-28-2012 [facility], HOSPITAL GENERALIZED V643 PROCEDURE 08-27-2012 [facility], NOT CARRIED STICK INSERTER OUT FOR [place] TELLO OTHER HOS REASONS 49329 SWELLING OF 08-25-2012 [facility], LIMB STICK INSERTER [place] [facility] HOS E8809 ACCIDENTAL 08-25-[facility] F[facility] ON OR RADIOLOGY FROM OTHER ASSOCIAT STAIRS OR STEPS E8889 UNSPECIFIED 08-25-2012 AHMED ADN FALL 4610 ACUTE 08-01-2012 [facility] 90483 OPEN WOUND 03-07-2012 [facility] TELL[facility] LIP WITHOUT HOSPITAL MENTION COMPLICATIO N E8490 PLACE OF 03-07-2012 [facility] TELL[facility] OCCURRENCE, HOSPITAL HOME E8888 OTHER FALL 03-07-2012 [facility] 6200 FOLLICULAR 12-27-2011 PER JR CYST OF [place] OVARY 3814 NONSUPPRATV 12-10-2011 JEFE DARRION OTITIS MEDIA NOT SPEC ACUT/CHRON V7231 ROUTINE 11-29-2011 PATHOLOGY & GYNECOLOGIC CYTOLOGY AL LAB EXAMINATION 4619 ACUTE 11-25-2011 JEFE DARRION SINUSITIS, UNSPECIFIED 53773 URINARY 11-25-2011 MAYBERRY DARRION FREQUENCY 6260 ABSENCE OF 10-13-2011 [facility] MENSTRUATIO AMERIC N HOLDINGS 38525 PAIN IN 10-01-2011 [facility] JOINT, RADIOLOGY UPPER ARM ASSOCIAT 83403 CONTUSION 10-01-2011 [facility] TELLO OF [facility] HOSPITAL 9593 INJURY 10-01-2011 [facility] OTHER&UNSPE RADIOLOGY CIFIED ASSOCIAT [facility]&WRI ST 6252 MITTELSCHME 09-19-2011 VILLAFLOR RZ OSI 29774 PAIN IN 06-16-2011 [facility] JOINT, HAND RADIOLOGY ASSOCIAT 7937 NONSPC ABN 06-16-2011 [facility] FINDNG RAD RADIOLOGY & OTH EXM ASSOCIAT [place] L SYS 76307 CLOS 06-16-2011 [facility] TE[facility]O [facility] MID/PROXIMA L PHALANX/PHA LANG HAND 74320 SPRAIN AND 06-16-2011 HATTIE TELLO STRAIN OF HOSPITAL UNSPECIFIED SITE OF HAND 16740 CONTUSION 06-16-2011 [facility] TELL[facility] OF HAND HOSPITAL 9594 INJURY 06-16-2011 [facility] OTHER AND RADIOLOGY UNSPECIFIED ASSOCIAT HAND EXCEPT FINGER E9270 OVEREXERTIO 06-16-2011 HATTIE TELLO N FROM HOSPITAL SUDDEN STRENUOUS MOVEMENT 6253 DYSMENORRHE 10-21-2010 [facility] ANI A 4658 ACUTE URIS 10-13-2010 [facility] [place] OF OTHER MULTIPLE SITES 4871 INFLUENZA 10-13-2010 HATTIE TELLO WITH OTHER HOSPITAL RESPIRATORY MANIFESTATI ONS 38226 OTHER 10-13-2010 [facility] ASCITES RADIOLOGY ASSOCIAT E8496 PLACE OF 04-13-2010 [facility] PUBLIC BUILDING E9175 STRIKE 04-13-2010 [facility] TELLO [facility] K ACC OTH OBJ SPORTS W/FALL 2564 POLYCYSTIC 02-05-2010 [facility] GUPTA 5950 ACUTE 02-03-2010 [facility] 6268 OTH D/O 12-10-2009 [facility]&OTH ABN CLINIC BLEED FE GNT TRACT 54867 UNSPECIFIED 06-24-2009 [facility] BINOCULAR [facility]ISION VISION ANDLEARNING DISORDER 52769 NYSTAGMUS 06-24-2009 [facility] W/DEFIC VISION SMOOTH ANDLEARNING PURSUIT MOVEMENTS 9063 LATE EFFECT 05-26-2009 H[facility] TELLO OF HOSPITAL CONTUSION 62371 CONTUSION 05-25-2009 HATTIE TELLO OF [facility] E8499 UNSPECIFIED 05-25-[address] HOSPITAL OCCURRENCE E8859 FALL FROM 05-25-2009 H[facility] TELLO OTHER HOSPITAL SLIPPING TRIPPING OR STUMBLING 11067 VISUAL 04-01-2009 [facility] 34939 MIGRAINE 04-17-2008 [facility] TELLO W/[facility] W/O INTRACT W/O STAT MIGRNOSUS 69823 EFFUSION OF 03-30-2008 [facility] FO[facility]INT [facility] PSC 7812 ABNORMALITY 03-30-2008 HATTIE TELLO OF [facility] 845 SPRAINS AND 03-30-2008 HATTIE TELLO STRAINS OF HOSPITAL ANKLE AND FOOT 9160 HIP THI 03-30-2008 [facility] TELLO LEG[facility]ANK [facility] ABRASION/FR ICION BURN W/O INF 9170 ABRASION/FR 03-30-2008 [facility] TELLO ICTION BURN HOSPITAL FOOT&TOE W/O MENTION INF 90657 CONTUSION 03-30-2008 [facility] TELLO OF [facility] V642 SURG/OTH 03-30-2008 HATTIE TELLO PROC NOT HOSPITAL CARRIED OUT BECAUSE PTS DECN 460 ACUTE 12-22-2007 [facility] ITIS INTERNAL MED 4780 HYPERTROPHY 12-18-2007 IN[facility], OF NASAL CHAD B TURBINATES 9953 ALLERGY 12-08-2007 [facility] UNSPECIFIED [facility] NOT INTERNAL ELSEWHERE MED CLASSIFIED 5184 UNSPECIFIED 02-22-2007 [facility] EDEMA OF PEDIA LUNG 5839 NEPHRITIS&N 02-22-2007 [facility] [facility] NOT AC/CHRN PEDIA W/UNS PATHAL LES [...] 34 7- 1- 00 01 UC ve SC 59 20 20 04 [place] ED 31 [...] 06 07 30 30 00 KE Ac SC 37 -2 -2 .0 00 NT ti [...] 80 6- 8- 00 01 UC ve SC 01 20 20 03 [place] AM 00 [...] 80 2- 6- 00 01 UC ve SC 01 20 20 03 [place] AM 00 17 17 07 5 85 CV HB S R PH 20 AR MA MG CY TA LL BL C, ET DB A CV S PH AR MA CY #3 01 6 SC 00 05 06 60 30 00 KE [...] 80 0- 8- 00 01 UC ve SC 01 20 20 01 [place] AM 00 [...] 03 04 28 14 00 KE Ac SC 16 -1 -0 .0 00 NT ti [...] 01 KY ZA 11 17 17 27 SC 0 45 CV IN S E PH 10 AR MA MG CY TA LL BL C, ET DB A CV S PH AR MA CY #3 01 6 OS 47 02 03 10 5 00 KE Ac EL 78 -2 -2 .0 00 NT ti TA 10 7- 4- 00 01 UC ve WV 47 20 20 00 [place] 01 17 [...] PH AR MA CY #3 01 6 SC 00 02 03 10 5 00 KE [...] 1% 46 11 11 FA TH 0 WV AN SH LY L AM PO DR O UG MA 51 04 04 0 59 1 SO 37 WH Ac LA 67 -1 -1 .0 PE 09 EE ti TH 25 3- 3- 00 RS 00 LE ve IO 27 20 20 R N 70 11 11 FA KR 0. 4 WV IS 5% LY TI E LO DR [...] 0 30 15 WA 70 WH Ac SC 74 -1 -1 .0 L- 55 EE [...] JR IN 26 10 10 FA 7 WV CH 1% LY ES TE LO DR R TI UG R ON PE 00 11 11 1 59 2 SO 35 YO Ac RM 47 -0 -0 .0 PE 68 UN ti ET 25 8- 8- 00 RS 56 G ve HR 24 20 20 JR IN 26 10 10 FA 7 WV CH 1% LY ES TE LO DR [...] 00 7. 7 SO 30 JU Ac SC 06 -3 -0 50 PE 97 DY ti OD 58 0- 9- 0 RS 96 ve EX 53 20 20 NA 30 09 09 FA TA OT 2 WV LI IC LY E E MARIE DR SP UG EN SI ON 59 03 04 00 20 10 SO 30 JU Ac 76 -3 -0 .0 PE 97 DY ti 22 0- 9- 00 RS 95 ve 18 20 20 NA 00 09 09 FA TA 1 WV LI LY E E DR ROGERS TA 00 03 03 00 10 5 SO 30 HU Ac WV 00 -1 -2 .0 PE 86 NT ti FL 40 7- 6- 00 RS 44 ER ve U 80 20 20 75 08 09 09 FA NA 5 WV NC MG LY Y C CA DR PS UG UL E SC 60 03 03 00 12 5 SO 30 HU Ac OM 43 -1 -2 0. PE 86 NT ti ET 20 7- 6- 00 RS 30 ER ve NAILS 60 20 20 0 ZI 41 09 09 FA NA NE 6 WV NC -D LY Y M C SY RU UG P SC 50 01 01 00 60 30 SO 30 HU Ac OP 11 -1 -3 .0 PE 32 NT ti RA 10 3- 0- 00 RS 85 ER ve NO 46 20 20 LO 70 09 09 FA NA L 1 WV NC 10 LY Y C MG [address] UG TA BL ET 60 01 01 00 12 3 SO 30 HU Ac 25 -1 -3 0. PE 32 NT ti 80 3- 0- 00 RS 84 ER ve 23 20 20 0 91 09 09 FA NA 6 WV NC LY Y C DR UG AB 59 01 01 00 45 30 SO 30 HU Ac IL 14 -1 -3 .0 PE 32 NT ti IF 80 3- 0- 00 RS 87 ER ve Y 00 20 20 5 71 09 09 FA NA MG 3 WV NC LY Y TA C BL ET UG 17 06 06 00 15 15 SO 28 No Ac 31 -0 -1 .0 PE 58 t ti 45 5- 2- 00 RS 89 Av ve 85 20 20 ai 10 08 08 FA la 2 WV bl LY e DR UG AB 59 06 06 00 15 30 SO 28 No Ac IL 14 -0 -1 .0 PE 58 t ti IF 80 5- 2- 00 RS 88 Av ve Y 00 20 20 ai 5 71 08 08 FA la MG 3 WV bl LY e TA BL ET UG NA 00 01 03 00 17 30 SO 27 No Ac SO 08 -2 -2 .0 PE 41 t ti NE 51 8- 6- 00 RS 12 Av ve X 28 20 20 ai 50 80 08 08 FA la 1 WV bl MC LY e G NA DR SA UG L SP RA Y 63 01 03 00 20 10 SO 27 No Ac 30 -2 -2 .0 PE 41 t ti 40 8- 6- 00 RS 14 Av ve 75 20 20 ai 12 08 08 FA la 0 WV bl LY e DR UG 00 01 03 00 30 30 SO 27 No Ac 09 -2 -2 .0 PE 41 t ti 51 8- 6- 00 RS 15 Av ve 29 20 20 ai 00 08 08 FA la 6 WV bl LY e DR UG AB 59 01 03 00 45 30 SO 27 No Ac IL 14 -2 -2 .0 PE 34 t ti IF 80 1- 5- 00 RS 53 Av ve Y 00 20 20 ai 5 71 08 08 FA la MG 3 WV bl LY e TA BL DR ET UG 17 01 03 00 30 30 SO 27 No Ac 31 -2 -2 .0 PE 34 t ti 45 1- 5- 00 RS 51 Av ve 85 20 20 ai 10 08 08 FA la 2 WV bl LY e DR UG SC 50 01 03 00 60 30 SO 27 No Ac OP 11 -1 -2 .0 PE 33 t ti RA 10 8- 5- 00 RS 47 Av ve NO 46 20 20 ai LO 70 08 08 FA la L 1 WV bl [address] UG [...] NO complet T 017 ed 13:00 CHART [id number] complet NUMBER 017 35 ed 13:00 Chlamyd [...] 16:00) COLLECT S.JOSE complet OR 017 , driver medic 16:00 ETHNICI WHITE, complet TY 017 NON-HIS [...] 16:00) COLLECT S.JOSE complet OR 017 , driver medic 16:00 ETHNICI WHITE complet TY 017 NON-HIS [...] PT/J complet OR 016 WEINER ed 10:30 STAFF NURSE ETHNICI WHITE, complet TY 016 NON-HIS ed [...] PT/M. complet OR 015 MILLS ed 14:35 STAFF NURSE ETHNICI WHITE, complet TY 015 NON-HIS ed [...] Procedure DOS Code Location Performer Comment IAADIADOO 80499 VELIA BARNETT 7 [facility]INIC SE STREPT[facility] CCUS GROUP A [address] [place] [address] HEALTH HEALTH REAL [facility] TIME W/IMAGE DOCUMENTA TION INJECTION J1050 [facility] MEDROXYPR [facility] DE[facility] DEPT OGESTERON KIERA KIERA E ACETATE 1 MG IADNA 12649 [facility] CHLAMYDIA 7 [facility] DEPT TH DEPT TRACHOMAT KIERA KIERA IS AMPLIFIED PROBE TQ URINE 76217 [facility] 7 [facility] TEST [facility] DE[facility] VISUAL KIERA KIEAR COLOR CMPRSN METHS IADNA 74558 [facility] NEISSERIA 7 [facility] DEPT HL DEPT GONORRHOE KIERA KIERA AE AMPLIFIED PROBE TQ GENERAL 10411 [place] [address] HEALTH HEALTH PANEL [facility] CYANOCOBA 26881 [facility] PENTECOSTALISM ALFREDO 7 HEALTH HEALTH VITAMIN [facility] B-12 LIPID 14200 [facility]ECOSTALISM PENTECOSTALISM PANEL 7 HEALTH HEALTH [facility] HEMOGLOBI 72616 PENTECOSTALISM PENTECOSTALISM N 7 HEALTH HEALTH GLYCOSYLA [facility] DOROTHY A1C RADEX 75186 [facility] [place] SCALF ABDOMEN 1 7 RADIOLOGY ANTEROPOS TERIOR VIEW CULTURE 95924 [facility] BACTERIAL 7 ELIZABETH ELIZABETH HOLDINGS HOLDINGS QUANTTATI VE COLONY COUNT URINE INJECTION J1050 [facility] MED[facility] HLTH DEPT HLTH DEPT OGESTERON KIERA [place] [address] [place] [address] [facility] HEAD/BRAI 7 RADIOLOGY N W/O ASSOC CONTRAST MATERIAL APPL 29296 NONA NONA MODALITY 7 1/> AREAS ELEC STIMJ [facility] G0378 PENTECOSTALISM PENTECOSTALISM OBSERVATI 7 HEALTH HEALTH ON [facility] SERVICE PER HOUR INITIAL 66234 PENTECOSTALISM [facility] 7 HEALTH ON MEDICAL CARE/DAY GROUP 70 MINUTES GROUND A0425 BRUN[facility] BRUNO MILEAGE 7 [place] PER URBAN URBAN STATUTE COGOVT [place]GOVT MILE CHIROPRAC 20549 NONA NONA TIC 7 [place]AT [place] SPINAL 1-2 REGIONS APPL 66511 NONA NONA MODALITY 7 1/> AREAS ULTRASOUN D EA 15 MIN AMB A0427 BRUNO BRUNO SERVICE 7 [place] ALS URBAN URBAN EMERGENCY COGOVT COGOVT TRANSPORT LEVEL 1 APPL 07251 NONA NONA MODALITY 7 1/> AREAS ULTRASOUN D EA 15 MIN CHIROPRAC 64774 NONA NONA TIC 7 [place]AT [place] SPINAL 1-2 REGIONS APPL 68769 NONA NONA MODALITY 7 1/> AREAS ELEC STIMJ UNATTENDE D APPL 96151 NONA NONA MODALITY 7 1/> AREAS ULTRASOUN D EA 15 MIN CHIROPRAC 64510 NONA NONA TIC 7 MANIP[place]AT [place] SPINAL 1-2 REGIONS APPL 07238 NONA NONA MODALITY 7 1/> AREAS ELEC STIMJ UNATTENDE D IAADIADOO 68665 VELIA ANIBAL 7 CLINIC SE INFLUENZA RADIOLOGI 74894 MIMI LE Alex EXAM 7 [facility] CHEST 2 INC INC VIEWS FRONTAL&L ATERAL CUL BACT 67325 MIMI LE XCPT 7 [facility] URINE INC INC BLOOD/[place] [address] MIMI LE STREPTOCO 7 [facility] CCUS INC INC GROUP A IAADI 56038 MIMI LE INFLUENZA 7 [facility] B VIRUS INC INC IAADI 95533 MIMI LE INFFLUENZ 7 [facility] A A VIRUS INC INC ANTIBODY 19564 [facility] DE[facility] KIERA KIERA INJECTION J1050 [facility] MEDROXYPR [facility] DEPT OGESTERON KIERA KIERA E ACETATE 1 MG IADNA 11380 [facility] CHLAMYDIA 7 [facility] DE[facility] TH DEPT TRACHOMAT KIERA KIERA IS AMPLIFIED PROBE TQ IADNA 05416 [facility] NEISSERIA 7 [facility] DE[facility] DEPT GONORRHOE KIERA KIERA AE AMPLIFIED PROBE TQ IAADIADOO 21108 VELIA LEZAMA 7 CLINIC STREPT[facility]O CCUS GROUP A RADIOLOGI 81463 [facility] C [address] [place] [address] ON KNEE 3 VIEWS RADEX 21589 [facility] ELBOW [address] [place] [address] MINIMUM 3 VIEWS RADEX [address] [facility] LOR[place] RIBS [address] [place] [address] L 2 VIEWS INJECTION J1050 [facility] 6 [facility] MEDROXYPR [facility] DEPT [facility] DEPT OGESTERON KIERA KIERA E ACETATE 1 MG INJECTION J1050 [facility] 6 [facility] MEDROXYPR [facility] DE[facility] HLTH DEPT OGESTERON KIERA KIERA E ACETATE 1 MG CONTRACEP A4267 [facility] TIVE 6 [facility] DISTRICT SUPPLY [facility] DE[facility] HL DEPT CONDOM KIERA KIERA MALE EACH INJECTION J1100 VELIA SCHMITZ- 6 [facility] [place] DEXAMETHO SONE SODIUM PHOSPHATE 1 MG THERAPEUT 11466 VELIA SCHMITZ- IC 6 [facility] PROPHYLAC TIC/DX INJECTION SUBQ/IM THERAPEUT 92940 KASI VILLASEÑOR [address] IV PUSH EACH NEW DRUG INJ J2930 [facility] METHYLPRD [address] [place] [address] SODIUM SUCCNAT TO 125 [place] THER [address] [facility] VILLASEÑOR PROPH/DX [address] [place] [address] HOSPITAL PUSH SINGLE/1S T SBST/DRUG IADNA 08759 [facility] DEPT [facility] DEPT TRACHOMAT KIERA KIERA IS AMPLIFIED PROBE TQ CONTRACEP A4267 [facility] TIVE 6 [facility] SUPPLY [facility] DE[facility] HLTH DEPT CONDOM KIERA KIERA MALE EACH IADNA 80518 [facility] NEISS[facility]IA [address] [place] [address] DEPT [facility] DEPT GONORRHOE KIERA KIERA AE AMPLIFIED PROBE TQ THERAPEUT 01226 KASI VILLASEÑOR [address] [facility] TIC/DX INJECTION SUBQ/IM RADEX 65025 [facility] [place] SCALF FERMÍN NASAL 6 RADIOLOGY BONES COMPLETE MINIMUM 3 VIEWS INJECTION J1885 [address] KETOROLAC [facility] TROMETHAM INE PER 15 MG COLLECTIO 12800 [facility] N VENOUS [address] [place] [address] VENIPUNCT URE COMPREHEN [address] [facility] VILLASEÑOR SIVE [address] [place] [address] PANEL BLOOD 42215 LORETTO KASI COUNT [address] [place] [address] AUTO&[place] [address] [facility] FOLIC 6 ELIZABETH ELIZABETH ACID HOLDINGS HOLDINGS SERUM CYANOCOBA 12184 [facility] F[facility] ALFREDO 6 ELIZABETH ELIZABETH VITAMIN HOLDINGS HOLDINGS B-12 BASIC 97359 [facility] METABOLIC 6 ELIZABETH ELIZABETH PANEL HOLDINGS HOLDINGS CALCIUM TOTAL IAADIADOO 32960 VELIA MARTINLE 6 [facility]INIC CLINIC STREPTOCO CCUS GROUP A ANES 78821 MATILDE JEAN UPPER GI 6 ANESTHESI ENDOSCOPY A GROUP PROXIMAL PS TO DUODENUM INJECTION J1050 [facility] 6 [facility] MEDROXYPR TH DEPT HLTH DEPT OGESTERON KIERA KIERA E ACETATE 1 [place] [address] [facility] FREE 6 ELIZABETH ELIZABETH [place] [address] LAB F[facility] FOLIC 6 ELIZABETH ELIZABETH [place] [address] [facility] AMYLASE 6 ELIZABETH ELIZABETH HOLDINGS HOLDINGS CYANOCOBA 95744 [facility] F[facility] ALFREDO 6 ELIZABETH ELIZABETH VITAMIN HOLDINGS HOLDINGS B-12 [place] [address] LAB FANT[facility] LIPASE 6 ELIZABETH ELIZABETH HOLDINGS HOLDINGS URINE 64356 VELIA GUNN 6 CLINIC CLINIC TEST VISUAL COLOR CMPRSN METHS GENERAL 29028 [facility] HEALTH 6 ELIZABETH ELIZABETH PANEL HOLDINGS HOLDINGS HPYLORI 31069 [facility] BREATH 6 ELIZABETH ELIZABETH ANAL HOLDINGS HOLDINGS UREASE ACT NON-RADAC T ISTOPE IAADIADOO 30074 HATTIE RESENDIZ 5 [facility] STREPTOCO URGENT CCUS TREAT GROUP A CONTRACEP A4267 [facility] T[facility] 5 [facility] SUP[facility]Y [facility] DEPT [facility] DEPT CONDOM KIERA KIERA MALE EACH INJECTION J1050 [facility] 5 [facility] MEDROXYPR [facility] DEPT TH DEPT OGESTERON KIERA KIERA E ACETATE 1 MG LARYNGOSC 30694 EAR, NOSE SHASHY OPY 5 AND MIRANDA FLEXIBLE THROAT DIAGNOSTI SPECIAL C IAADIADOO 82355 HATTIE RESENDIZ 5 [facility] [place] [address] [facility] [place] CORBIN JAM ABDOMEN & 5 RADIOLOGY PELVIS W/O CONTRAST MATERIAL IADNA 97091 [facility] NEISS[facility] 5 [facility] DEPT [facility] DEPT GONORRHOE KIERA KIERA AE AMPLIFIED PROBE TQ CONTRACEP A4267 [facility] TIVE 5 [facility] DISTRICT SUPPLY [facility] DEPT [facility] DEPT CONDOM KIERA KIERA MALE EACH URINE 65776 [facility] 5 [facility] TEST [facility] VISUAL KIERA KIERA COLOR CMPRSN METHS IADNA 57746 [facility]LAMYDIA 5 [facility] DEPT [facility] DEPT TRACHOMAT KIERA KIERA IS AMPLIFIED PROBE TQ INJECTION J1050 [facility] 5 [facility] MEDROXYPR [facility] DEPT [facility] DEPT OGESTERON KIERA KIERA E ACETATE 1 MG RADEX 99024 MIMI MIMI ANKLE 5 [facility] COMPLETE INC INC MINIMUM 3 VIEWS CRTCHS E0114 ADVANCED ADVANCED UNDARM 5 TECHNOLOG TECHNOLOG OTH THAN IES INC IES INC WOOD PAIR PAD TIP&HNDGR IP CULTURE 97783 [facility] BACTERIAL 5 [facility] QUANTTATI VE COLONY COUNT URINE URINE 94417 [facility] 5 [facility] VISUAL COLOR CMPRSN METHS INJECTION J1885 [facility] [place] [address] [place] [address] [facility] TR[place]ETH[place] IN[place] [address] [place] [address] [facility] ABDOMEN & 5 [facility] PELVIS [facility] HOSPITAL W/O CONTRAST MATERIAL THER 60850 [facility] PROPH/DX 5 [facility] NJX IV HOSPITAL HOSPITAL PUSH SINGLE/1S T SBST/DRUG BLOOD 49239 [facility] COUNT 5 [facility] AUTO&AUTO DIFRNTL WBC URNLS DIP 48951 [place] [address] [place] [address] [facility] HOSPITAL LET REAGENT AUTO MICROSCOP Y THERAPEUT 89370 [facility] IC [address] [place] [address] INJECTION [facility] IV PUSH EACH NEW DRUG COLLECTIO 33996 [facility] N VENOUS 5 [facility] VENIPUNCT URE COMPREHEN 39488 [place] SIVE [address] [place] [address] [place] [address] KASI [place] AMYLASE [address] [address] INJECTION J2405 KASI [place] [address] [place] [address] ON HCL PER [address] LUMBAR 207[address] [facility] [place] CORBIN JAM SPINE 5 RADIOLOGY W/O CONTRAST MATERIAL RADIOLOGI 59651 [facility] [place] ROJAS C 5 RADIOLOGY JOSE EXAMINATI ON PELVIS 1/2 VIEWS GROUND A0425 HATTIE KUHN MILEAGE [address] [place] [address] PER AMBULANCE AMBULANCE STATUTE SE SE MILE CT ANGIO 42238 [facility] [place] ABD&PLVIS 5 RADIOLOGY JOSE CNTRST MTRL W/[place] [address] [facility] [place] HAJIBRAHI ANGIOGRAP 5 RADIOLOGY M DHAVAL HY CHEST W/CONTRAS [place] [address] [facility] [place] CORBIN JAM CERVICAL 5 RADIOLOGY SPINE W/O CONTRAST MATERIAL RADIOLOGI 63148 [facility] [place] ROJAS C 5 RADIOLOGY JOSE EXAMINATI ON CHEST SINGLE VIEW FRONTAL AMB A0427 HATTIE KUHN SERVICE [address] [place] [address] ALS AMBULANCE AMBULANCE EMERGENCY [place] [address] [facility] HEAD/BRAI 5 MEDICAL NANI N W/[place] [address] [facility] CERVICAL 5 MEDICAL NANI SPINE W/[place] [address] [facility] [place] RUSSEL TRANSVAGI 5 [place] [address] KASI [place] LIPASE [address] [place] [address] [place] [address] KASI VILLASEÑOR ABDOMEN & 5 [facility] W/O CONTRAST MATERIAL URINE 52923 KASI VILLASEÑOR [address] [place] [address] VISUAL COLOR CMPRSN METHS BLOOD 47622 KASI [place] COUNT [address] [place] [address] AUTO&AUTO DIFRNTL WBC URNLS DIP 22129 KAIS [place] [address] [place] [address] [facility] HOSPITAL LET REAGENT AUTO MICROSCOP Y COLLECTIO 06331 KASI VILLASEÑOR N VENOUS 5 [facility] BLOOD [facility] VENIPUNCT URE COMPREHEN 66552 KASI VILLASEÑOR SIVE 5 [facility] [place] [address] KASI VILLASEÑOR AMYLASE 5 [facility] BRNCDILAT 15969 INGE INGE RSPSE 5 CHAD CHAD SPMTRY PRE&POST- BRNCDILAT ADMN PRESSURIZ 53097 INGE INGE ED/NONPRE 5 CHAD CHAD SSURIZED INHALATIO N TREATMENT NITRIC 60083 INGE INGE OXIDE 5 CHAD CHAD GAS DETERMINA TION PREPJ& 07883 INGE INGE ALLERGEN 4 CHAD BONILLA IMMUNOTHE RAPY 1/KNIFE CHANGER ANTIGEN INITIAL 73394 RACHEL RAMOS OBSERVATI 4 SOY SOY ON CARE/DAY 50 MINUTES RADIOLOGI 72806 MIMI Johnosn EXAM 4 [facility] CHEST 2 INC INC VIEWS FRONTAL&L ATERAL COLLECTIO 19511 VELIA LEZAMA LASHON N VENOUS 4 CLINIC BLOOD VENIPUNCT URE BLOOD 14162 [facility] COUNT 4 ELIZABETH ELIZABETH COMPLETE HOLDINGS HOLDINGS AUTO&AUTO DIFRNTL WBC ALBUMIN 21532 [facility] SERUM 4 ELIZABETH ELIZABETH PLASMA/WH HOLDINGS HOLDINGS OLE BLOOD GLUCOSE 75368 [facility] QUANTITAT 4 ELIZABETH ELIZABETH MORENITA BLOOD HOLDINGS HOLDINGS XCPT REAGENT STRIP PROTEIN 47486 LAB [facility] XCPT 4 ELIZABETH ELIZABETH REFRACTOM HOLDINGS HOLDINGS ETRY SERUM PLASMA/WH L BLD SODIUM 50835 [facility] SERUM 4 ELIZABETH ELIZABETH PLASMA OR HOLDINGS HOLDINGS WHOLE BLOOD BILIRUBIN 65495 [facility] TOTAL 4 ELIZABETH ELIZABETH HOLDINGS HOLDINGS CALCIUM 44965 [facility] TOTAL 4 ELIZABETH ELIZABETH HOLDINGS HOLDINGS TRANSFERA 47570 [facility] F[facility] SE 4 ELIZABETH ELIZABETH ASPARTATE HOLD[place] [address] LAB F[facility] UREA 4 ELIZABETH ELIZABETH NITROGEN HOLDINGS HOLDINGS QUANTITAT MORENITA CHLORIDE 14040 [facility] BLD 4 ELIZABETH ELIZABETH HOLDINGS HOLDINGS CREATININ 91049 [facility] E BLOOD 4 ELIZABETH [place] [address] LAB [facility] PHOSPHATA 4 ELIZABETH ELIZABETH SE HOLDINGS HOLDINGS ALKALINE POTASSIUM 19661 [facility] SERUM 4 ELIZABETH ELIZABETH PLASMA/WH HOLDINGS HOLDINGS OLE BLOOD IAADIADOO 46665 MEANS BUTROS 4 ADULT MARISEL STREPTOCO PRIMARY CCUS CARE CLI GROUP A INJECTION J1040 INTEGRITY RICHARDS, 4 JR. JAM METHYLPRE ORTHOPAED DNISOLONE ICS SPORT ACETATE 80 MG ARTHROCEN 36963 INTEGRITY RICHARDS, TESIS 4 JR. JAM ASPIR&/IN ORTHOPAED J MAJOR ICS SPORT JT/BURSA W/O [place] MRI ANY 13592 [facility] [place] JT LOWER 4 RADIOLOGY JOSE EXTREM W/O CONTRAST MATRL SLINGS A4565 BREG INC. BREG INC. 4 RADEX 70482 [facility] SHOULDER 4 MEDICAL NANI COMPLETE IMAGING MINIMUM 2 ASS VIEWS INJECTION J0696 VELIA SCHMITZ- 4 [facility] CEFTRIAXO NE SODIUM PER 250 MG IPRATROPI J7644 VELIA SCHMITZ- UM 4 [facility] BROMIDE INHAL NON-CP U DOSE PER MG ALBUTEROL J7609 VELIA SCHMITZ- INHAL CP 4 [facility] PROD THRU DME UNIT DOSE 1 MG PRESSURIZ 68927 VELIA SCHMITZ- ED/NONPRE 4 [facility] SSURIZED INHALATIO N TREATMENT THERAPEUT 52228 VELIA SCHMITZ- IC 4 [facility] PROPHYLAC TIC/DX INJECTION SUBQ/IM DEMO&/KERWIN 14227 VELIA SCHMITZ- L OF PT 4 [facility] UTILIZ AERSL GEN/NEB/I NHLR/IP INJECTION J1030 VELIA SCHMITZ- 4 [facility] METHYLPRE DNISOLONE ACETATE 40 MG MANUAL 28644 SCHULTE CHR SCHULTE CHR THERAPY 4 TQS 1/> REGIONS EACH 15 MINUTES THERAPEUT 81535 SCHULTE CHR SCHULTE CHR IC PX 1/> 4 AREAS EACH 15 MIN EXERCISES THERAPEUT 21116 SCHULTE CHR SCHULTE CHR IC PX 1/> 4 AREAS EACH 15 MIN EXERCISES MANUAL 67881 SCHULTE CHR SCHULTE CHR THERAPY 4 TQS 1/> REGIONS EACH 15 MINUTES MANUAL 86498 SCHULTE CHR SCHULTE CHR THERAPY 4 TQS 1/> REGIONS EACH 15 MINUTES THERAPEUT 24844 SCHULTE CHR SCHULTE CHR IC PX 1/> 4 AREAS EACH 15 MIN EXERCISES THERAPEUT 11257 SCHULTE CHR SCHULTE CHR IC PX 1/> 4 AREAS EACH 15 MIN EXERCISES MANUAL 18580 SCHULTE CHR SCHULTE CHR THERAPY 4 TQS 1/> REGIONS EACH 15 MINUTES THERAPEUT 78415 SCHULTE CHR SCHULTE CHR IC PX 1/> 4 AREAS EACH 15 MIN EXERCISES MANUAL 59810 SCHULTE CHR SCHULTE CHR THERAPY 4 TQS 1/> REGIONS EACH 15 MINUTES MANUAL 80871 SCHULTE CHR SCHULTE CHR THERAPY 4 TQS 1/> REGIONS EACH 15 MINUTES THERAPEUT 34733 SCHULTE CHR SCHULTE CHR IC PX 1/> 4 AREAS EACH 15 MIN EXERCISES PHYSICAL 82412 SCHULTE CHR SCHULTE CHR THERAPY 4 EVALUATIO N RADEX 24634 MOOKIE DAMICO ANKLE 4 SHANNON SHANNON COMPLETE MINIMUM 3 VIEWS ANKLE L1902 [employer] ORTH 4 [employer]ING [employer]. INC. GAUNT/SIM PREFAB OFF-THE-S HELF RADIOLOGI 67970 MOOKIE DAMICO C 4 SHANNON SHANNON EXAMINATI ON KNEE 1/2 VIEWS COMPRE 51487 [facility] [facility] SET AUDIOMETR 4 PHYSICIAN Y PRACTICE THRESHOLD L EVAL SP RECOGNIJ TYMPANOME 54504 [facility] [facility] SET TRY 4 PHYSICIAN PRACTICE L CUL BACT 71908 [facility], [employer], XCPT 4 STICK 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 INSERTER URINE HATTIE HATTIE BLOOD/STO [facility] [place] [address] [facility], [facility], SHIGA-LIK 4 STICK 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 INSERTER E TOXIN HATTIE HATTIE CO [facility] SMR PRIM 98993 [facility], [facility], SRC CPLX 4 STICK 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 INSERTER SPEC HATTIE HATTIE STAIN CO HOS CO HOS OVA&MARVA ITS CUL BACT 86845 [facility], [facility], STOOL 4 STICK 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 INSERTER AEROBIC HATTIE HATTIE ADDL CO HOS CO HOS PATHOGENS &ID EA CUL BACT 94494 [facility], [facility], STOOL 4 STICK 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 INSERTER AEROBIC HATTIE HATTIE ISOL CO HOS CO HOS SALMONELL A&SHIGELL COMPREHEN 16334 [facility], [facility], SIVE 4 STICK 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 INSERTER METABOLIC HATTIE HATTIE PANEL CO HOS CO HOS OVA&MARVA 88476 [facility], [facility], ITES 4 STICK 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 INSERTER DIRECT HATTIE HATTIE SMEARS CO HOS CO HOS CONCENTRA TION & ID BLOOD 18251 [facility], [facility], COUNT 4 STICK 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 INSERTER COMPLETE HATTIE HATTIE AUTO&AUTO CO HOS CO HOS DIFRNTL WBC LEUKOCYTE 50679 [facility], [facility], ASSMT 4 STICK 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 INSERTER FECAL HATTIE HATTIE QUAL/SEMI CO HOS CO HOS QUANTITAT MORENITA BLOOD 84956 [facility], [facility], OCCULT 4 STICK 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 INSERTER PEROXIDAS HATTIE HATTIE E ACTV CO HOS CO HOS QUAL FECES 1 DETER IAADIADOO 92410 [facility] 4 [place] STREPTOCO CCUS GROUP A SPMTRY 10882 INGE INGE W/VC 4 CHAD CHAD EXPIRATOR Y RADHA W/WO MXML VOL VNTJ IAADIADOO 52625 ASTRID RESENDIZ 4 NAN NAN STREPTOCO CCUS GROUP A PREPJ& 25554 INGE INGE ALLERGEN 4 CHAD CHAD IMMUNOTHE RAPY 1/KNIFE CHANGER ANTIGEN BASIC 49753 [facility], [facility], METABOLIC 4 STICK 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 INSERTER PANEL HATTIE HATTIE [place] [address] [facility] [employer], [employer], INFUSION 4 STICK 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 INSERTER THERAPY/P HATTIE KUHN ROPHYLAXI CO HOS CO HOS S /DX 1ST TO 1 HR BLOOD 79454 [employer], [employer], COUNT 4 STICK 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 INSERTER COMPLETE HATTIE KUHN AUTO&AUTO CO HOS CO HOS DIFRNTL WBC RADIOLOGI 28804 [facility] [employer], [employer] [facility], C EXAM 4 STICK 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 INSERTER CHEST 2 HATTIE KUHN VIEWS CO HOS CO HOS FRONTAL&L ATERAL PRESSURIZ 74656 [employer], [employer], ED/NONPRE 4 STICK 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 INSERTER SSURIZED HATTIE KUHN INHALATIO CO HOS CO HOS N TREATMENT THER 56948 [employer], [employer], PROPH/DX 4 STICK 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 INSERTER NJX IV HATTIE KUHN PUSH CO HOS CO HOS SINGLE/1S T SBST/DRUG IIV3 14501 [facility] VACCINE 4 [place] SPLIT VIRUS 0.5 ML DOSAGE IM USE PROF SVCS 42996 INGE INGE ALLG 4 CHAD CHAD IMMNTX X W/PRV ALLGIC XTRCS NJXS PREPJ& 82982 INGE INGE ALLERGEN 4 CHAD CHAD IMMUNOTHE RAPY 1/KNIFE CHANGER ANTIGEN SPMTRY 12073 INGE INGE W/VC 3 CHAD CHAD EXPIRATOR Y RADHA W/WO MXML VOL VNTJ PERCUTANE 68717 INGE INGE OUS TESTS 3 CHAD CHAD W/ALLERGE KIERA EXTRACTS INTRACUTA 02632 INGE INGE NEOUS 3 CHAD CHAD TESTS W/ALLERGE KIERA EXTRACTS URNLS DIP 89329 [facility] 3 [place] STICK/TAB LET RGNT AUTO W/O MICROSCOP Y RADEX 47787 NELLIE BALLARD FOOT 3 EIDER LASHON EIDER LASHON COMPLETE MINIMUM 3 VIEWS RADEX 97231 NELLIE WORLEYN ANKLE 3 EIDER LASHON EIDER LASHON COMPLETE MINIMUM 3 VIEWS OPHTH 70797 [facility] 3 GRE GRE XM&EVAL COMPRE NEW PT 1/> VST SPMTRY 74678 INGE INGE W/VC 3 CHAD CHAD EXPIRATOR Y RADHA W/WO MXML VOL VNTJ DETERMINA 70925 DREW RUSSELL TIEVGENY 3 GRE GRE REFRACTIV E STATE RADEX 78947 [facility] CAINMAN FOOT 3 FERMÍN FERMÍN COMPLETE MINIMUM 3 VIEWS SPACR A4627 MT MED MT MED BAG/RESRV 3 EQUIPMENT EQUIPMENT OR W/WO INC INC MASK W/METRD DOSE INHAL BRNCDILAT 45692 INGE INGE RSPSE 3 CHAD CHAD SPMTRY PRE&POST- BRNCDILAT ADMN LAPAROSCO 37956 [facility] PY SURG 3 [facility] ECTOMY PRESSURIZ 68387 [facility] ED/NONPRE 3 [facility] INHALATIO N TREATMENT ANES 24560 SIENNA ANT SIENNA ANT INTRAPERI 3 TONEAL UPPER ABDOMEN W/LAPS NOS URINE 27400 [facility] VISUAL COLOR CMPRSN METHS LEVEL III 62486 TANOUS, TANOUS, SURG 3 JR EDW JR EDW PATHOLOGY GROSS&JANA ROSCOPIC EXAM COLLECTIO 29282 KASI JESSICAON N VENOUS [address] [place] [address] VENIPUNCT URE COMPREHEN 58271 [facility] SIVE 3 [facility] PANEL BLOOD 42441 [facility] COUNT 3 [facility] AUTO&AUTO DIFRNTL WBC HEPATOBIL 50090 RUSSEL RUSSEL SYST 3 RHO RHO IMAG INC GB W/PHARMA INTERVENJ BLOOD 17692 [employer], COUNT 3 STICK 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 INSERTER COMPLETE HATTIE KUHN AUTO&[place] [address] DENTON CHAWLA ABDOMINAL 3 FERMÍN FERMÍN REAL TIME W/IMAGE LIMITED COMPREHEN 82014 [employer], SIVE 3 STICK 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 INSERTER METABOLIC HATTIE KUH[place] [address] [employer], AMYLASE 3 STICK 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 INSERTER HATTIE KUHN CO HOS CO HOS NEBULIZER E0570 DANGELO PIERSON WITH 3 HOME HOME COMPRESSO MEDICAL MEDICAL R EQUIPME EQUIPME ADMN SET A7003 YOUR YOUR SM VOL 3 PHARMACY PHARMACY [facility] PNEUMAT NEBULIZR DISPBL RADIOLOGI 62558 NELLIE BALLARD C EXAM 3 EIDER LASHON EIDER LASHON CHEST 2 VIEWS FRONTAL&L ATERAL RADIOLOGI 64547 HAGENSCHN HAGENSCHN C EXAM 3 EIDER LASHON EIDER LASHON CHEST 2 VIEWS FRONTAL&L ATERAL EXC TUMOR 66407 ADLER ALDER SOFT 3 TONYA TONYA TISS NECK/THOR AX SUBFASCIA L <5CM URINE 76272 [facility] 3 Y Y TEST [facility] VISUAL COLOR CMPRSN METHS INJECTION J3010 [facility] FENTANYL 3 Y Y CITRATE [facility] 0.1 MG INFUSION J7030 [facility] NORMAL 3 Y Y SALINE [facility] SOLUTION 1000 CC BX/EXC 49251 [facility] LYMPH 3 Y Y NODE OPEN [facility] DEEP CERVICAL NODE INJECTION J1100 [facility] 3 Y Y DEXAMETHO [facility] SONE SODIUM PHOSPHATE 1 MG RINGERS J7120 [facility] LACTATE 3 Y Y INFUSION [facility] UP TO 1000 CC INJECTION J2405 [facility] 3 [facility] HCL PER 1 [place] [address] MONTILLA MOL MONTILLA MOL SURG 3 PATHOLOGY GROSS&JANA ROSCOPIC EXAM ANES 90941 HOWARD JANA HOWARD JANA INTEG 3 MUSC & NRV HEAD NECK&POST ERIOR TRUNK INJECTION J2250 [facility] 3 Y Y MIDAZOLAM [facility] HCL PER 1 MG BLOOD 65634 [employer], COUNT 3 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 COMPLETE HATTIE KUHN AUTO&AUTO CO HOS CO HOS DIFRNTL WBC GONADOTRO 07834 [employer], PIN 3 STICK 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 INSERTER CHORIONIC HATTIE [place] [address] [employer], EXTREMITY 3 STICK 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 INSERTER NON-VASC HATTIE HATTIE CO HOS CO HOS REAL-TIME IMG COMPL BLOOD 38712 [employer], [employer], COUNT 3 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 COMPLETE HATTIE HATTIE AUTO&AUTO CO HOS CO HOS DIFRNTL WBC THYROID 88966 [employer], [employer], HORM 3 STICK 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 INSERTER UPTK/THYR HATTIE HATTIE OID CO HOS CO HOS HORMONE BINDING RATIO HEMOGLOBI 96891 [employer], [employer], N 3 STICK 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 INSERTER GLYCOSYLA HATTIE HATTIE DOROTHY A1[place] [address] [employer], THYROID 3 STICK 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 INSERTER STIMULATI HATTIE HATTIE NG [place] [address] [employer], INSULIN 3 STICK 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 INSERTER TOTAL [place] [address] [employer], FREE 3 STICK 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 INSERTER THYROXINE HATTIE HATTIE CO HOS CO HOS COMPREHEN 31721 [employer], [employer], SIVE 3 STICK 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 INSERTER METABOLIC HATTIE HATTIE [place] [address] [employer], [employer], THYROXINE 3 STICK 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 INSERTER TOTAL HATTIE HATTIE CO HOS CO HOS US SOFT 64103 HAGENSCHN HAGENSCHN TISSUE 3 EIDER LASHON EICARLOS LASHON HEAD & [place] [address] [facility] CERVICAL 2 ANIBAL SPINE W/O RADIOLOGY CONTRAST ASSOCIAT MATERIAL GROUND A0425 ENGLISH ENGLISH MILEAGE 2 AMBULETT AMBULETT PER & & STATUTE AMBULANC AMBULANC MILE AMBULANCE A0429 [facility] EN[facility]ISH SERVICE 2 AMBULETT AMBULETT BLS & & EMERGENCY AMBULANC AMBULANC TRANSPORT ANES 43389 [facility] LOWER 2 MEDICAL ALB INTESTINE SERVICES ENDOSCOPY DISTAL DUODENUM EGD 26634 [facility] TRANSTUPELO 2 Y Y [facility] SINGLE/MU LTIPLE INJECTION J2250 [facility] 2 [facility] H[facility] PER 1 MG COLONOSCO 56233 [facility] PY 2 Y Y [facility] SINGLE/MU LTIPLE RINGERS J7120 [facility] LACTATE 2 Y Y INFUSION [facility] UP TO 1000 CC CUL BACT 40226 [facility] PIPPA 2 Y Y ANAERC [facility] ISOL XCPT UR BLOOD/[place] [address] [facility] SURG 2 Y Y PATHOLOGY [facility] GROSS&JANA ROSCOPIC EXAM INJECTION J3010 [facility] FENTANYL 2 Y Y CITRATE [facility] 0.1 MG FAT/LIPID 64513 [employer], S FECES 2 STICK 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 INSERTER QUALITATI HATTIE [place] [address] [employer], CLOSTRIDI 2 STICK 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 INSERTER UM HATTIE KUHN DIFFIC[place] [address] [employer], MULT STEP 2 STICK 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 INSERTER METHOD HATTIE KUHN NOS EACH CO HOS CO HOS ORGANISM RADEX 39476 [employer], FOOT 2 STICK 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 INSERTER COMPLETE HATTIE KUHN MINIMUM 3 [place] [address] [facility] GAMMAGLOB 2 Y Y [place] IGD IGG IGM EACH BLOOD 58598 [facility] COUNT 2 Y Y COMPLETE [facility] AUTOMATED C-REACTIV 57109 [facility] E PROTEIN 2 [place] [address] [facility] THYROID 2 Y Y STIMULATI [facility] NG HORMONE TSH COMPREHEN 22911 [facility] SIVE 2 Y Y METABOLIC [facility] PANEL IMMUNOASS 01364 [facility] AY 2 Y Y ANALYTE [facility] QUAL/SEMI QUAL MULTIPLE STEP SIMPLE 95718 HATTIE BROOKS REPAIR 2 CO DIOGENES F/E/E/N/L HOSPITAL /M 2.5CM/< SIMPLE 55873 [employer], REPAIR 2 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 INSERTER F/E/E/N/L HATTIE KUHN /M CO HOS CO HOS 2.5CM/< GONADOTRO 97378 [facility] [employer], [facility] INC, PIN 2 STICK 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 INSERTER CHORIONIC HATTIE HATTIE CO HOS CO HOS QUALITATI VE INJECTION J2001 [facility] [employer], [facility] INC, 2 STICK 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 INSERTER LIDOCAINE HATTIE HATTIE HCL CO HOS CO HOS INTRAVENO US INFUS 10 MG RADEX 07026 [facility] [employer], [facility], SPINE 2 STICK 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 INSERTER THORACIC HATTIE HATTIE 2 VIEWS CO HOS CO HOS THERAPEUT 97055 [facility] [employer], [facility], IC 2 STICK 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 INSERTER PROPHYLAC HATTIE HATTIE TIC/DX CO HOS CO HOS INJECTION SUBQ/[place] [address] [facility] [employer] [facility], CERVICAL 2 STICK 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 INSERTER SPINE W/O HATTIE HATTIE CONTRAST CO HOS CO HOS MATERIAL RADEX 13385 [facility] [employer], [employer] [facility], SPINE 2 STICK 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 INSERTER LUMBOSACR HATTIE HATTIE AL 2/3 CO HOS CO HOS VIEWS INJECTION J1885 [facility] [employer], [employer] [facility], 2 STICK 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 INSERTER KETOROLAC HATTIE HATTIE CO HOS CO HOS TROMETHAM INE [place] 15 [place] [address] MD DIEGO CORTEZ MD TRANSVAGI 2 STEPHEN STEPHEN NAL HEPATOBIL 67106 [facility] SYST 2 [facility] W/[place] [address] [place] [facility] MAT ABDOMEN & 2 RADIOLOGY PELVIS W/O CONTRAST MATERIAL URINE 21661 [facility] VISUAL COLOR CMPRSN METHS BASIC 31162 [facility] METABOLIC 2 [facility] CALCIUM TOTAL COLLECTIO 48799 [facility] [facility] N VENOUS 2 [facility] VENIPUNCT URE THER 34900 [facility] [facility] PROPH/DX 2 [facility] NJX IV [facility] PUSH SINGLE/1S T SBST/DRUG URNLS DIP 81962 [facility] [facility] 2 [facility] STICK/TAB [facility] HOSPITAL LET REAGENT AUTO MICROSCOP Y BLOOD 86404 [facility] COUNT 2 [facility] AUTO&AUTO DIFRNTL WBC URINLS 19433 JEFE MAYBERRY DARRION DIP 2 STICK/TAB LET REAGNT NON-AUTO MICRSCPY CYTP C/V 26212 PATHOLOGY PICKLESIM AUTO THIN 2 & ER JR RADAMES LYR CYTOLOGY PREPJ SCR LAB MNL RESCR PHYS URINLS 89033 [facility]ERRY DARRION DIP 2 STICK/TAB LET REAGNT NON-AUTO MICRSCPY IAADIADOO 61399 JEFE MAY[facility]ERR[facility] DARRION 1 STREPTOCO CCUS GROUP A COLLECTIO 86583 JEFE MAYBERRY DARRION N VENOUS 1 [place] [address] [facility] THYROXINE 1 AMERIC AMERIC TOTAL HOLDINGS HOLDING GENERAL 49580 [facility] HEALTH 1 AMERIC AMERIC PANEL HOLDINGS HOLDING THYROID 59445 [facility] HORM 1 AMERIC AMERIC UPTK/THYR HOLDINGS HOLDING OID HORMONE BINDING RATIO RADEX 14662 HATTIE KUHN ELBOW 1 CO CO [facility] MINIMUM 3 [place] [address] MD DIEGO CORTEZ MD TRANSVAGI 1 [facility] 66464 [facility] DISCHARGE 1 OSI OSI DAY MANAGEMEN T > 30 MIN INJECTION J2405 [facility] 1 [facility] PER 1 MG URNLS DIP 57520 [facility] 1 Y Y STICK/TAB [facility] LET RGNT AUTO W/O MICROSCOP Y COMPREHEN 27321 [facility] SIVE 1 Y Y METABOLIC [facility] [place] [address] [facility] INFUSION 1 Y Y HYDRATION [facility] EACH ADDITIONA L HOUR RINGERS J7120 [facility] LACTATE 1 Y Y INFUSION [facility] UP TO 1000 CC THER 82781 [facility] PROPH/DX 1 Y Y NJX IV [facility] PUSH SINGLE/1S T SBST/[place] [address] [facility] LIPASE 1 Y Y [facility] INJECTION J2270 [facility] MORPHINE 1 Y Y SULFATE [facility] UP TO 10 MG THERAPEUT 30164 [facility] IC 1 Y Y INJECTION HOSPITAL [facility] IV PUSH EACH NEW DRUG BLOOD 48001 [facility] COUNT 1 Y Y COMPLETE [facility] AUTO&AUTO DIFRNTL WBC INFUSION J7030 [facility] NORMAL 1 Y Y SALINE HOSPITAL [facility] SOLUTION 1000 CC DUP-SCAN 87523 HIEN RODRÍGUEZ ARTL RADHA 1 MEDICAL [place] ABDL/PEL/ SERV SCROT&/RP FOUNDATIO R ORGN COM US PELVIC 55464 [facility] NONOBSTET RADIOLOGY FERMÍN ASSOCIAT REAL-TIME IMAGE COMPLETE URINE 97515 HATTIE KUHN 1 CO CO [facility] VISUAL COLOR CMPRSN METHS SBSQ 05891 [place] [address] DREAD DREAD CARE/DAY 25 MINUTES INITIAL 26905 [place] [address] OSI OSI CARE/DAY 70 MINUTES HOSPITAL G0378 HATTIE KUHN OBSERVATI 1 CO [facility] HOSPITAL HOSPITAL SERVICE PER HOUR INJECTION J2550 HATTIE KUHN 1 CO CO [facility] INE HCL UP TO 50 MG BASIC 37672 HATTIE KUHN METABOLIC 1 CO CO PANEL [facility] CALCIUM TOTAL URNLS DIP 26936 HATTIE KUHN 1 CO CO STICK/TAB [facility] LET REAGENT AUTO MICROSCOP Y BLOOD 42303 HATTIE KUHN COUNT 1 CO CO COMPLETE [facility] AUTO&[place] [address] HATTIE KUHN INFUSION 1 CO CO THERAPY/P [facility] S /DX [address] [place] [address] [place] [address] [facility] ABDOMEN & 1 [facility] PELVIS [facility] HOSPITAL W/CONTRAS T MATERIAL URNLS DIP 97328 [place] 1 [facility] STICK/TAB [facility] HOSPITAL LET REAGENT AUTO MICROSCOP Y BLOOD 78009 [facility] [facility] COUNT 1 [facility] AUTO&AUTO DIFRNTL WBC URINE 96156 [facility] VISUAL COLOR CMPRSN METHS COMPREHEN 66811 [facility] KASI SIVE 1 [facility] PANEL COLLECTIO 01995 [facility] N [facility]ENOUS 1 [facility] VENIPUNCT URE THER [address] [facility] V[facility] PROPH/DX 1 [facility] PUSH SINGLE/1S T SBST/DRUG RADEX 79684 [facility] HAND 1 FERMÍN MINIMUM 3 RADIOLOGY VIEWS ASSOCIAT APPLICATI 25657 HATTIE BLANK ON FINGER 1 CO [facility] STATIC IAADIADOO 82709 [facility] DARRION 1 [facility] CCUS GROUP A PRESSURIZ 81569 HATTIE KUHN ED/NONPRE 0 CO CO SSURIZED [facility] INHALATIO N TREATMENT SMR PRIM 41545 HATTIE KUHN SRC 0 CO CO GRAM/GIEM [facility] SA STAIN BCT FUNGI/DARELL L [facility] 56061 ROSAMARIA BLANK DISCHARGE 0 MANAGEMEN T 30 MIN/< CUL BACT 44434 HATTIE KUHN XCPT 0 CO CO URINE [facility] BLOOD/STO OL AEROBIC ISOL URNLS DIP 34864 HATTIE KUHN 0 CO CO STICK/TAB [facility] LET REAGENT AUTO MICROSCOP Y ELECTROLY 44240 HATTIE KUHN TE PANEL 0 CO [facility] PRESSURIZ 85907 HATTIE KUHN ED/NONPRE 0 CO CO SSURIZED [facility] INHALATIO N TREATMENT US PELVIC 25120 HATTIE KUHN 0 CO CO NONOBSTET [facility] FERMÍN REAL-TIME IMAGE COMPLETE BLOOD 23590 HATTIE KUHN COUNT 0 CO CO SMEAR [facility] MCRSCP W/MNL DIFRNTL WBC COUNT [facility] G0378 HATTIE KUHN OBSERVATI 0 CO CO ON HOSPITAL HOSPITAL SERVICE PER HOUR COLLECTIO 45867 HATTIE Jiménez VENOUS 0 CO CO BLOOD [facility] VENIPUNCT URE INITIAL 75594 [facility] 0 DREAD DREAD CARE/DAY 50 MINUTES COLLECTIO 01011 HATTIE Jiménez VENOUS 0 CO CO BLOOD [facility] [place] [address] HATTIE KUHN STREPTOCO 0 CO CO CCUS [facility] GROUP A PRESSURIZ 74523 HATTIE KUHN ED/NONPRE 0 CO CO SSURIZED [facility] HOSPITAL INHALATIO N TREATMENT BLOOD 02802 HATTIE KUHN COUNT 0 CO CO SMEAR [facility] MCRSCP W/MNL DIFRNTL WBC COUNT RADIOLOGI 83950 HATTIE KUHN C EXAM 0 CO CO CHEST 2 [facility] HOSPITAL VIEWS FRONTAL&L ATERAL GONADOTRO 89408 HATTIE KUHN PIN 0 CO CO CHORIONIC [facility] [place] [address] HATTIE KUHN INFUSION 0 CO CO THERAPY/P [facility] ROPHYLAXI S /DX 1ST TO 1 HR URNLS DIP 74617 HATTIE KUHN 0 CO CO STICK/TAB [facility] LET REAGENT AUTO MICROSCOP Y CUL BACT 24350 HATTIE KUHN XCPT 0 CO CO URINE [facility] BLOOD/STO OL AEROBIC ISOL BASIC 97492 HATTIE KUHN METABOLIC 0 CO CO PANEL [facility] CALCIUM TOTAL ANTIBODY 29164 HATTIE KUHN INFLUENZA 0 CO CO VIRUS [facility] RADEX 35967 HATTIE KUHN HAND 0 CO CO MINIMUM 3 [facility] VIEWS [place] PELVIS [address] [place] RAD[facility], 0 RADIOLOGY VALERIE D W/CONTRAS T MATERIAL URINLS 17748 [facility], DIP 0 MEDICAL DINAH R STICK/TAB [place]IN[place] [address] [place] [facility], ABDOMEN 0 RADIOLOGY VALERIE D W/CONTRAS T MATERIAL BASIC 46529 [facility] METABOLIC 0 [facility] CALCIUM TOTAL BLOOD 36703 [facility] [facility] COUNT 0 [facility] AUTO&AUTO DIFRNTL WBC COLLECTIO 99080 KASI VILLASEÑOR N VENOUS 0 [facility] [place] [address] [facility] INSULIN 0 [facility] TOTAL DEHYDROEP 30594 [facility] IANDROSTE 0 [facility] JEWEL-SULF ATE GLUCOSE 50940 [facility] QUANTITAT 0 [facility] MORENITA [place] [address] [facility] PROLACTIN 0 [facility] [place] [address] [facility] THYROID 0 [facility] STIMULATI NG HORMONE TSH CULTURE 03677 [facility] BACTERIAL 0 [employer] HOLDING QUANTTATI VE COLONY COUNT URINE URINLS 32982 [facility], DIP 0 MEDICAL DINAH R STICK/TAB CLINIC LET REAGNT NON-AUTO MICRSCPY URINE 14338 [facility] YOU[facility], 0 MEDICAL DINAH R TEST CLINIC VISUAL COLOR CMPRSN METHS URINLS 42519 [facility] YOU[facility], DIP 0 MEDICAL DINAH R STICK/TAB CLINIC LET REAGNT NON-AUTO MICRSCPY ORTHOPTIC 68414 [facility] GRAEBE, 9 VISION ZEINAB S &/PLEOPTI ANDLEARNI C NG TRAINING W/MEDICAL DIRECTJ THERAPEUT 88359 [facility] SYLVIEEBE, IC PX 1/> 9 VISION ZEINAB S AREAS ANDLEARNI EACH 15 [place] [address] [facility], 1/> AREAS 9 VISION ZEINAB S EACH 15 ANDLEARNI [place] [address] [facility], 1/> AREAS 9 VISION ZEINAB S EACH 15 ANDLEARNI MIN NG NEUROMUSC REEDUCA THERAPEUT 38769 [facility] GRA[facility], IC PX 1/> 9 VISION ZEINAB S AREAS ANDLEARNI EACH 15 NG MIN EXERCISES ORTHOPTIC 89660 [facility], 9 VISION ZEINAB S &/PLEOPTI ANDLEARNI C NG TRAINING W/MEDICAL DIRECTJ ORTHOPTIC 20527 [facility], 9 VISION ZEINAB S &/PLEOPTI ANDLEARNI C NG TRAINING W/[place] [address] [facility] GRA[facility], 1/> AREAS 9 VISION ZEINAB S EACH 15 ANDLEARNI MIN NG NEUROMUSC REEDUCA THERAPEUT 78019 CHILDRENS [place], IC PX 1/> 9 VISION ZEINAB S AREAS ANDLEARNI EACH 15 [place] [address] HATTIE KUHN ABDOMINAL 9 CO CO REAL [facility] TIME W/IMAGE DOCUMENTA TION RADIOLOGI 55326 HATTIE KUHN C 9 CO [facility]2 VIEWS URNLS DIP 52490 HATTIE KUHN 9 CO CO STICK/TAB [facility] LET REAGENT AUTO MICROSCOP Y RADEX HIP 59204 VJ CHAWLA, 9 ZEINAB S [place] RADIOLOGY L COMPLETE ASSOCIATE MINIMUM 2 S PSC VIEWS RADEX 67144 HATTIE KUHN SHOULDER 9 CO CO [facility] MINIMUM 2 VIEWS CULTURE 92721 HATTIE KUHN BACTERIAL 9 CO [facility] QUANTTATI VE COLONY COUNT URINE RADEX 56132 HATTIE KUHN ELBOW 9 CO [facility] MINIMUM 3 VIEWS THERAPEUT 94183 CHILDRENS JAHE, IC PX 1/> 9 VISION ZEINAB S AREAS ANDLEARNI EACH 15 NG MIN EXERCISES ORTHOPTIC 80726 SAMMIES SYLVIEEBE, 9 VISION ZEINAB S &/PLEOPTI ANDLEARNI C NG TRAINING W/[place] [address] CHILDRENS GRAEBE, 1/> AREAS 9 VISION ZEINAB S EACH 15 ANDLEARNI [place] [address] CHILDRENS GRAEBE, 1/> AREAS 9 VISION ZEINAB S EACH 15 ANDLEARNI MIN NG NEUROMUSC REEDUCA THERAPEUT 36504 CHILDRENS GRAEBE, IC PX 1/> 9 VISION ZEINAB S AREAS ANDLEARNI EACH 15 NG MIN EXERCISES ORTHOPTIC 62892 CHILDRENS SYLVIEEBE, 9 VISION ZEINAB S &/PLEOPTI ANDLEARNI C NG TRAINING W/MEDICAL DIRECTJ ORTHOPTIC 95341 JACKIE FALCON, 9 VISION ZEINAB S &/PLEOPTI ANDLEARNI C NG TRAINING W/MEDICAL DIRECTJ THERAPEUT 74377 JACKIE FALCON, IC PX 1/> 9 VISION ZEINAB S AREAS ANDLEARNI EACH 15 [place] [address] JACKIE FALCON, 1/> AREAS 9 VISION ZEINAB S EACH 15 ANDLEARNI MIN NG NEUROMUSC REEDUCA SENSORMOT 38363 JACKIE FALCON, OR XM 9 VISION ZEINAB S W/KNIFE CHANGER ANDLEARNI HILDA NG OCULAR DEVIJ W/I&R SPX FITTING 18137 FAMILY F[facility]CON SPECTACLE 9 [facility] ZEINAB [place] S XCPT ASSOCIATE APHAKIA S MONOFOCAL 1 VISN V2103 [facility] PLANO 9 [facility] ZEINAB S TO+/-4.00 ASSOCIATE D SPHER S 0.12-2.00 D CYL EA DETERMINA 72067 [facility]CON TION 9 [facility] Z[facility] S REFRACTIV ASSOCIATE E STATE S FRAMES V2020 [facility] PURCHASES 9 [facility] Z[facility] S ASSOCIATE S OPHTH 91897 FAMILY FALCON, MEDICAL 9 [facility] ZEINAB S XM&EVAL ASSOCIATE COMPRE S NEW PT 1/> [place] [address] HATTIE KUHN STREPTOCO 9 CO CO [facility] CUL BACT 79242 HATTIE KUHN XCPT 9 CO CO URINE [facility] BLOOD/STO OL AEROBIC ISOL ANTIBODY 80047 HATTIE KUHN INFLUENZA 9 [facility] CUL BACT 30676 HATTIE KUHN XCPT 9 CO CO URINE [facility] BLOOD/[place] [address] HATTIE KUHN STREPTOCO 9 CO CO [facility] [place] [address] HATTIE KUHN STREPTOCO 9 CO CO [facility] CUL BACT 01537 HATTIE KUHN XCPT 9 CO CO URINE [facility] BLOOD/STO OL AEROBIC ISOL THER 57359 HATTIE KUHN PROPH/DX 8 CO CO [facility] SUBQ/IM RADIOLOGI 15886 VALERIEAlex IVEY 8 ZEINAB S EXAMINATI RADIOLOGY ON ANKLE 2 VIEWS ASSOCIATE S [facility] RADIOLOGI 30862 FLOYDADA Alex CHAWLA 8 ZEINAB S EXAMINATI RADIOLOGY ON FOOT 2 VIEWS ASSOCIATE S [facility] RADIOLOGI 99302 Alex GUTHRIE 8 ZEINAB S EXAMINATI RADIOLOGY ON KNEE 1/2 VIEWS ASSOCIATE S [facility] RADEX 47400 HATTIE KUHN FOOT 8 CO CO [facility] MINIMUM 3 VIEWS RADIOLOGI 17943 HATTIE KUHN C 8 CO [facility] KNEE 3 VIEWS RADEX 65954 HATTIE KUHN ANKLE 8 CO CO [facility] MINIMUM 3 VIEWS DEMO&/KERWIN 17914 INGE ALCAZAR, L OF PT 8 CHAD B CHAD B UTILIZ AERSL GEN/NEB/I NHLR/IP BRNCDILAT 21941 INGE, INGE, RSPSE 8 CHAD B CHAD B SPMTRY PRE&POST- BRNCDILAT ADMN INTRACUTA 40484 INGE, INGE, NEOUS 8 CHAD B CHAD B TESTS W/ALLERGE KIERA EXTRACTS [facility] 94425 INGE, INGE, OUS TESTS 8 CHAD B CHAD B W/ALLERGE KIERA EXTRACTS [facility] [address] [facility] DISCHARGE 7 Y OF [place] DAY MAINE MANAGEMEN PEDIA T 30 MIN/< SBSQ 86865 [facility] 7 Y OF [facility] CARE/DAY MAINE 25 PEDIA MINUTES SBSQ 28602 [facility] 7 [facility] CARE/DAY MAINE 25 PEDIA MINUTES INITIAL 72146 [facility] 7 Y OF CARE/DAY MAINE 70 PEDIA MINUTES ECG 41547 [facility] ROUTINE 7 Y OF ECG MAINE W/LEAST PEDIA 12 LDS W/I&R Encounters Encounter Start End Date Code Location Performer Type Date OFFICE 84863 [facility] OUTPAT[facility]EN 7 7 ASTHMA III T NEW 45 ASSOC OF MINUTES TH OFFICE 66904 VELIA ZARAGOZALER- OUTPATIEN 7 7 CLINIC SE T VISIT 15 MINUTES HOSPITAL [facility]ALISM - 7 [facility] 68738 [facility] 7 7 [facility] E MED EST [facility] PATIENT KIERA KIERA 18-39 YRS HOSPITAL [facility]ENT[facility] 7 [facility] [place] [facility] 33793 [facility] 7 7 [facility] T VISIT TH DEPT [facility] 10 KIERA KIERA MINUTES OFFICE 94019 PENTECOSTALISM [facility] OUT[facility] 7 7 HEALTH T NEW 60 MEDICAL MINUTES [facility] PENTECOSTALISM - 7 7 [facility] EM[facility]ENC[facility] 97024 [facility] DEPT 7 7 EMERGENCY VISIT PHYS PSC HIGH SEVERITY& THREAT FUNCJ OFFICE 51325 NONA NONA OUTPATIEN 7 7 T NEW 20 MINUTES OFFICE 32239 KASI VILLAGOMEZ OUTPATIEN 7 7 PHYSICIAN T VISIT PRACTICE 15 L MINUTES OFFICE 71499 VELIA SCHMITZ- OUTPATIEN 7 7 CLINIC SE T VISIT 15 MINUTES EMERGENCY 44256 MIMI 7 7 [facility] DEPARTMEN INC T VISIT LOW/MODER SEVERITY EMERGENCY 29153 CLEMENT MUNIZ 7 7 PHYSICIAN DEPARTMEN S, PLLC T VISIT HIGH/URGE NT SEVERITY HOSPITAL MIMI - 7 7 [facility] OUTPATIEN INC T OFFICE 43700 [facility] 7 7 [facility] T VISIT HLTH DEPT HLTH DEPT 10 KIERA KIERA MINUTES OFFICE 57248 [facility]IA [facility] 7 7 CLINIC T VISIT 15 MINUTES EMERGENCY 88968 [facility] 6 6 [facility] T VISIT PHYS HIGH/URGE NT SEVERITY [facility]OSP[facility] [place] - 6 6 [facility] T EMERGENCY 72790 [place] 6 6 [facility] T VISIT MODERATE SEVERITY OFFICE 97570 [facility] 6 6 [facility] T VISIT 5 HLTH DEPT HLTH DEPT MINUTES KIERA KIERA OFFICE 31830 [facility] 6 6 [facility] T VISIT HLTH DEPT HLTH DEPT 10 KIERA KIERA MINUTES OFFICE 43961 VELIA BARNETT OUTPATIEN 6 6 CLINIC SE SARAH T VISIT 15 MINUTES EMERGENCY 24406 [place] 6 6 [facility] T VISIT LOW/MODER SEVERITY [facility] [place] - 6 6 [facility] T EMERGENCY 39374 [facility] 6 6 D[facility] EMERGENCY T VISIT PHYS MODERATE SEVERITY [facility]OSP[facility] [place] - 6 6 [facility] T EMERGENCY 41773 [facility] 6 6 DARRIN NANI DEPARTMEN EMERGENCY T VISIT PHYS HIGH/URGE NT SEVERITY EMERGENCY 98874 [place] 6 6 [facility] T VISIT MODERATE SEVERITY PERIODIC 15000 [facility] 6 6 [facility] E MED EST HLTH DEPT HLTH DEPT PATIENT KIERA KIERA 18-39 YRS EMERGENCY 43355 [place] 6 6 [facility] T VISIT MODERATE SEVERITY [facility]OSP[facility] [place] - 6 6 [facility] T EMERGENCY 23770 [facility] 6 6 DARRIN [facility] T VISIT PHYS HIGH/URGE NT SEVERITY OFFICE 51055 BLACK BHAVIN OUTPATIEN 6 6 DIGESTIVE [facility] T VISIT CARE 25 CENTER [facility] [place] - 6 6 [facility] T OFFICE 65719 VELIA SCHMITZ-SHANON OUTPATIEN 6 6 CLINIC SE SARAH T VISIT 25 MINUTES OFFICE 17023 VANNESSACO VANNESSACO OUTPATIEN 6 6 [facility] T VISIT HLTH DEPT HLTH DEPT 10 KIERA KIERA MINUTES OFFICE 82082 [facility] 6 6 CLINIC T VISIT 15 MINUTES OFFICE 90731 BLACK DELCID OUTPATIEN 6 6 DIGESTIVE CEC T NEW 45 CARE MINUTES CENTER OFFICE 52465 VELIA SCHMITZ-SHANON OUTPATIEN 6 6 [facility] T VISIT 15 MINUTES OFFICE 98474 HATTIE RESENDIZ OUTPATIEN 6 6 [facility] T VISIT URGENT 25 TREAT MINUTES OFFICE 15448 VANNESSACO [facility] 6 6 [facility] T VISIT HLTH DEPT TH DEPT 10 KIERA KIERA MINUTES OFFICE 20751 HATTIE RESENDIZ OUTPATIEN 6 6 [facility] T VISIT URGENT 25 TREAT MINUTES EMERGENCY 88902 VORCASEYOR VORKPOR 5 5 [facility] T VISIT HIGH/URGE NT SEVERITY OFFICE 90568 HATTIE ASTRID OUTPATIEN 5 5 [facility] T VISIT URGENT 25 TREAT MINUTES OFFICE 83820 VANNESSACO [facility] OUTPATIEN 5 5 [facility] T VISIT HLTH DEPT TH DEPT 10 KIERA KIERA MINUTES OFFICE 15621 EAR, NOSE SHASHY CONSULTAT 5 5 AND MIRANDA ION THROAT NEW/ESTAB SPECIAL PATIENT 60 MIN OFFICE 23229 HATTIE RESENDIZ OUTPATIEN 5 5 [facility] T VISIT URGENT 25 TREAT MINUTES EMERGENCY 13174 [facility] 5 5 [facility] T VISIT HIGH/URGE NT SEVERITY INITIAL 23573 [facility] 5 5 [facility] E TH DEPT [facility] MEDICINE KIERA KIERA NEW PT AGE 18-39YRS EMERGENCY 80822 MIMI 5 5 [facility] T VISIT LOW/MODER SEVERITY EMERGENCY 85963 CLEMENT HERNADEZ 5 5 PHYSICIAN [facility] T VISIT MODERATE SEVERITY HOSPITAL MIMI - 5 5 [facility] - 5 5 [facility] T EMERGENCY 99712 [facility] 5 5 [facility] T VISIT HIGH/URGE NT SEVERITY EMERGENCY 85126 HERBERTH KEVIN DEPT 5 5 EDW EDW VISIT HIGH SEVERITY& THREAT [facility] - 5 5 [facility] T OFFICE [address] 5 5 CLIN[facility] T VISIT [address] [facility] - 5 5 [facility] T OFFICE [address] 5 5 CLIN[facility] T VISIT 15 MINUTES EMERGENCY 87944 GORGEON 5 5 [facility] T VISIT HIGH/URGE NT SEVERITY OFFICE [address] [facility] 5 5 CHAD CHAD T VISIT 25 MINUTES OFFICE [address] [facility] 4 4 CLINIC T VISIT 15 MINUTES EMERGENCY 75847 SESAR HERNADEZ DEPT 4 4 VISIT HIGH SEVERITY& THREAT FUNCJ OFFICE 32078 MEANS BUTROS OUTPATIEN 4 4 ADULT MARISEL T VISIT PRIMARY 15 CARE CLI MINUTES HOSPITAL MIMI - 4 4 [facility] OUTPATIEN INC T OFFICE 01222 VELIA OATES OUTPATIEN 4 4 CLINIC T VISIT 15 MINUTES OFFICE 86219 MEANS BUTROS OUTPATIEN 4 4 ADULT MARISEL T VISIT PRIMARY 15 CARE CLI MINUTES OFFICE 78953 VELIA OATES OUTPATIEN 4 4 CLINIC T VISIT 15 MINUTES OFFICE 16560 MEANS BUTROS OUTPATIEN 4 4 ADULT MARISEL T VISIT PRIMARY 15 CARE CLI MINUTES EMERGENCY 35431 MIMI 4 4 [facility] DEPARTMEN INC T VISIT LOW/MODER SEVERITY HOSPITAL MIMI - 4 4 [facility] OUTPATIEN INC T EMERGENCY 74744 DEANGELO MUNIZ 4 4 MEDICAL [facility] T VISIT MODERATE SEVERITY OFFICE 62441 VELIA SCHMITZ- OUTPATIEN 4 4 [facility]IN[facility] T VISIT 15 MINUTES OFFICE 34318 VELIA SCHMITZ- OUTPATIEN 4 4 CLINIC [facility] T VISIT 15 MINUTES OFFICE 05820 MEANS BUTROS OUTPATIEN 4 4 ADULT MARISEL T VISIT PRIMARY 15 CARE CLI MINUTES OFFICE 27593 INTEGRITY RICHARDS, OUTPATIEN 4 4 JR. JAM T VISIT ORTHOPAED 15 ICS SPORT MINUTES [facility] VIKY - 4 4 [facility] OUTPATIEN [facility]UST[facility] T EMERGENCY 37179 FLAVIO MUNIZ 4 4 JANA JANA DEPARTMEN T VISIT MODERATE SEVERITY OFFICE 62840 INTEGRITY CHATTHA OUTPATIEN 4 4 SHANNON T VISIT ORTHOPAED 15 ICS SPORT MINUTES OFFICE 06701 VELIA SCHMITZ- OUTPATIEN 4 4 CLINIC [facility] T VISIT 15 MINUTES OFFICE 10298 MOOKIE DAMICO OUTPATIEN 4 4 SHANNON SHANNON T NEW 30 MINUTES OFFICE 96732 LUIS FERNANDO LUIS FERNANDO CONSULTAT 4 4 LES LES ION NEW/ESTAB PATIENT 40 MIN OFFICE 11449 VELIA RICHARDSON OUTPATIEN 4 4 CLINIC SERA T VISIT 25 MINUTES OFFICE 44691 VELIA SCHMITZ- OUTPATIEN 4 4 [facility] T VISIT 15 MINUTES OFFICE 98031 [facility] OUTPATIEN 4 4 [place] T VISIT 15 [facility]ES [facility] - 4 4 [facility] OUTPATIEN HATTIE T CO HOS OFFICE 28290 [facility] 4 4 [place] [facility] T VISIT 15 MINUTES [facility] - 4 4 [facility] OUTPATIEN [facility]ATTIE T CO HOS OFFICE 04189 [facility] OUTPATIEN 4 4 [place] T VISIT 10 MINUTES OFFICE 63516 INGE ALCAZAR OUTPATIEN 4 4 CHAD CHAD T VISIT 25 MINUTES OFFICE 02510 [facility] OUTPATIEN 4 4 [place] T VISIT 15 MINUTES OFFICE 35490 ASTRID RESENDIZ OUTPATIEN 4 4 KAREN KAREN T VISIT 15 MINUTES PERIODIC 16995 [facility] PREVENTIV 4 4 [place] E MED EST PATIENT 11-06YRS [facility] - 4 4 [facility] OUTPATIEN HATTIE T CO HOS EMERGENCY 46893 [facility], 4 4 [facility] DEPARTMEN HATTIE T VISIT CO HOS HIGH/URGE NT SEVERITY OFFICE 65905 [facility] OUTPATIEN 4 4 [place] T VISIT 10 MINUTES OFFICE 01154 [facility] 3 3 [place] T VISIT 15 MINUTES OFFICE 83778 INGE INGE OUTPATIEN 3 3 CHAD BONILLA T VISIT 25 MINUTES HOSPITAL [facility] - 3 3 [facility] 38267 [facility] 3 3 [place] T VISIT 15 MINUTES OFFICE 27431 INGE INGE OUTPATIEN 3 3 CHAD BONILLA T VISIT 15 MINUTES OFFICE [address] [facility] 3 3 KAREN JONES T VISIT 15 MINUTES HOSPITAL [facility] - 3 3 [facility]ER[facility] HOS OFFICE 37694 INGE INGE CONSULTAT 3 3 CHAD CHAD ION NEW/ESTAB PATIENT 80 MIN [facility]OSP[facility] [place] - 3 3 [facility] T OFFICE 02181 [facility] 3 3 [place] T VISIT 15 MINUTES [facility] [place] - 3 3 [facility] T OFFICE 14734 ALLRAN JR ALLRAN JR CONSULTAT 3 3 KASSANDRA KASSANDRA ION NEW/ESTAB PATIENT 40 MIN OFFICE 30086 [facility] 3 3 [place] T VISIT 15 MINUTES [facility] - 3 3 [facility] [address] [facility] 3 3 KAREN JONES T VISIT 15 MINUTES EMERGENCY 39423 KARI PIERCE 3 3 [facility] HIGH/URGE NT SEVERITY [facility]OS[facility] - 3 3 [facility] INPATIENT [facility] UNIVERS[facility] - 3 3 [facility], - 3 3 [facility] OUTPATIEN HATTIE T CO HOS OFFICE 52706 AHMED ADN AHMED ADN OUTPATIEN 3 3 T VISIT 15 MINUTES OFFICE 61333 VITOR ADLER OUTPATIEN 3 3 TONYA TONYA T NEW 30 MINUTES OFFICE 49212 VELIA SCHMITZ- OUTPATIEN 3 3 [facility] T VISIT 15 MINUTES HOSPITAL [facility], - 3 3 [facility] OUTPATIEN HATTIE T CO HOS OFFICE 15293 VELIA SCHMITZ- OUTPATIEN 3 3 [facility] T NEW 30 MINUTES OFFICE 89421 MARYANN MARYANN OUTPATIEN 3 3 ALICIA ALICIA T VISIT 40 MINUTES OFFICE 01129 AHMED ADN AHMED ADN OUTPATIEN 2 2 T VISIT 15 MINUTES OFFICE 00929 [facility] OUTPATIEN 2 2 T MANUEL T MANUEL T VISIT 25 MINUTES HOSPITAL UNIVERSIT - 2 2 Y OUTPATIEN [facility] - 2 2 [facility] OUTPATIEN [facility]ATTIE T CO HOS OFFICE 84678 [facility], OUTPATIEN 2 2 ST[facility] INSERTER T VISIT 5 HATTIE MINUTES CO HOS [facility] - 2 2 [facility] OUTPATIEN HATTIE T CO HOS EMERGENCY 37705 [facility], 2 2 [facility] DEPARTMEN HATTIE T VISIT CO HOS LOW/MODER SEVERITY OFFICE 51541 AHMED ADN AHMED ADN OUTPATIEN 2 2 T VISIT 15 MINUTES OFFICE 68831 AHMED ADN AHMED ADN OUTPATIEN 2 2 T NEW 60 MINUTES OFFICE 73124 FL[facility] FL[facility] CONSULTAT 2 2 T MANUEL T MANUEL ION NEW/ESTAB PATIENT 40 MIN HOSPITAL UNIVERSIT - 2 2 [facility] T EMERGENCY 31678 [facility] INC, 2 2 [facility] DEPARTMEN HATTIE T VISIT CO HOS LIMITED/M INOR PROB EMERGENCY 32486 [facility], 2 2 STICK INSERTER [facility] HATTIE T VISIT CO HOS MODERATE SEVERITY HOSPITAL [facility], - [address] [facility] HATTIE T CO HOS OFFICE 36507 MD DIEGO CORTEZ MD OUTPATIEN 2 2 STEPHEN STEPHEN T VISIT 15 MINUTES OFFICE 38195 SARY OKEEFE CONSULTAT 2 2 JOSE JOSE ION NEW/ESTAB PATIENT [address] [facility] - 2 2 [facility] T OFFICE 72945 PER ALBARADO JR OUTPATIEN 2 2 VIRGINIE VIRGINIE T VISIT 15 MINUTES EMERGENCY [address] [facility] 2 2 [facility] T VISIT HIGH/URGE NT SEVERITY EMERGENCY 33980 SESAR HERNADEZ DEPT 2 2 VISIT HIGH SEVERITY& THREAT FUNCJ OFFICE 43981 PER ALBARADO JR OUTPATIEN 2 2 VIRGINIE VIRGINIE T VISIT [address] [facility] - 2 2 [facility] T OFFICE 01132 MD DIEGO CORTEZ MD OUTPATIEN 2 2 STEPHEN STEPHEN T VISIT 15 MINUTES OFFICE 84084 JEFE MAYBRERY DARRION OUTPATIEN 2 2 T VISIT 15 MINUTES OFFICE 09066 JEFE MAYBERRY DARRION OUTPATIEN 2 2 T VISIT 25 MINUTES OFFICE 21061 JEFE MAYBERRY DARRION OUTPATIEN 2 2 T VISIT 15 MINUTES OFFICE 26150 JEFE MAYBERRY DARRION OUTPATIEN 1 1 T VISIT 15 MINUTES OFFICE 85425 JEFE MAYBERRY DARRION OUTPATIEN 1 1 T VISIT 15 MINUTES EMERGENCY 99499 HATTIE 1 1 [facility] T V[facility]IT LIMITED/M INOR [facility] HATTIE - 1 1 [facility] T EMERGENCY 97416 HATTIE 1 1 [facility] T VISIT LOW/MODER SEVERITY OFFICE 63278 MD DIEGO CORTEZ MD OUTPATIEN 1 1 STEPHEN MITCHELL T NEW 30 MINUTES EMERGENCY 19481 HIEN EVI 1 1 [facility] SERV T VISIT FOUNDATIO HIGH/URGE NT SEVERITY EMERGENCY 20314 UNIVERSIT DEPT 1 1 Y VISIT HOSPITAL HIGH SEVERITY& THREAT [facility] UNIVERSIT [facility] 1 1 Y [facility] HATTIE - 1 1 [facility] T EMERGENCY 05938 HATTIE 1 1 [facility] T VISIT HIGH/URGE NT SEVERITY [facility] - 1 1 [facility] T EMERGENCY [address] [facility] 1 1 [facility] T VISIT HIGH/URGE NT SEVERITY OFFICE 25965 REJI MAYBERRY DARRION OUTPATIEN 1 1 MEDICAL T VISIT CLINIC 25 MINUTES EMERGENCY 62026 HATTIE 1 1 [facility] T VISIT LOW/MODER SEVERITY HOSPITAL HATTIE - 1 1 [facility] T OFFICE 69693 REJI MAIER OUTPATIEN 1 1 MEDICAL T VISIT CLINIC 25 MINUTES OFFICE 49849 [facility] WITT [facility] 0 ANI ANI T VISIT 15 MINUTES EMERGENCY 64785 HATTIE DEPT 0 0 CO VISIT HOSPITAL HIGH SEVERITY& THREAT [facility] HATTIE - 0 0 [facility] T OFFICE 82465 REJI ALBARADO CHE OUTPATIEN 0 0 MEDICAL T VISIT CLINIC 15 MINUTES EMERGENCY 69305 HATTIE 0 0 [facility] T VISIT MODERATE SEVERITY HOSPITAL HATTIE - 0 0 [facility] T OFFICE 33727 REJI ALBARADO OUTPATIEN 0 0 MEDICAL DINAH R T VISIT CLINIC 25 MINUTES [facility]OSP[facility] [place] [facility] 0 0 [facility] T OFFICE 19363 SPIREK, NU WITTPATIEN 0 0 MONROE J MONROE J T NEW 30 MINUTES OFFICE 63798 NU GUAJARDOPATIEN 0 0 MEDICAL DINAH R T VISIT CLINIC 25 MINUTES PERIODIC 24430 REJI ALBARADO PREVENTIV 0 0 MEDICAL DINAH R E MED EST CLINIC PATIENT OFFICE 70227 [facility] GONZALO OUTPATIEN 9 9 [facility] A T VISIT INTERNAL 15 MED MINUTES HOSPITAL HATTIE - 9 9 [facility] T EMERGENCY 56487 HATTIE JAIN 9 9 [facility] , [facility] VISIT MODERATE SEVERITY HOSPITAL HATTIE - 9 9 [facility] T EMERGENCY 89650 HATTIE 9 9 [facility] T VISIT LOW/MODER SEVERITY OFFICE 49018 [facility] GONZALO OUTPATIEN 9 9 [facility] T VISIT INTERNAL 15 MED MINUTES OFFICE 81997 [facility] JOHN OUTPATIEN 9 9 [facility], T VISIT INTERNAL MOODY F 15 MED MINUTES HOSPITAL HATTIE Gong 9 9 [facility] T HOSPITAL HATTIE Castaneda 9 [facility] T OFFICE 20465 LICKRYS PROCTOR 9 9 [facility] [facility] T VISIT INTERNAL 10 MED MINUTES HOSPITAL HATTIE - 9 9 [facility] T EMERGENCY 24262 HATTIE 8 8 [facility] T VISIT LIMITED/M INOR PROB HOSPITAL HATTIE - 8 8 [facility] T EMERGENCY 75492 HATTIE BLANK, 8 8 [facility] T VISIT LOW/MODER SEVERITY HOSPITAL HATTIE Gong 8 8 [facility] T EMERGENCY 38039 HATTIE 8 8 [facility] T VISIT LIMITED/M INOR PROB OFFICE 42162 [place] KRYS WREN 8 8 [place] [facility] T VISIT INTERNAL 10 MED MINUTES OFFICE 40261 INGE ALCAZAR, CONSULTAT 8 8 CHAD B CHAD B ION NEW/ESTAB PATIENT 40 MIN OFFICE 55024 LICKRYS PROCTOR 8 8 [place] T VISIT INTERNAL 15 MED MINUTES
--- OUTSIDE RECORDS SUMMARY | 2017-09-02 19:07 | External Medical Summary Rpt | CCD ---
Author Author , SJ Hunter SJ Address Unknown Phone Care Team Providers Care Chain Sales Consultant Name Role Phone [employer] Unavailable Unavailable INC, [employer] AHMED ADN, AHMED ADN Unavailable Unavailable AHMED ADN, AHMED ADN Unavailable Unavailable [facility] Unavailable [facility]available [facility] ALLRAN JR KASSANDRA, ALLRAN Unavailable Unavailable JR KASSANDRA PALAUAN AMBULETT & Unavailable Unavailable AMBULANC, PALAUAN AMBULETT & AMBULANC PALAUAN AMBULETT & Unavailable Unavailable AMBULANC, PALAUAN AMBULETT & AMBULANC LUIS FERNANDO LES, LUIS FERNANDO Unavailable Unavailable LES LUIS FERNANDO LES, LUIS FERNANDO Unavailable Unavailable LES [facility] Unavailable Unavailable [facility], [facility] Unavailable Unavailable MEDICAL GROUP, [facility] BEINEKE NANI, BEINEKE Unavailable Unavailable NANI CURRAN AURORA, CURRAN Unavailable Unavailable AURORA BESSON, MANE A, Unavailable Unavailable BESSON, MANE A [employer] Unavailable Unavailable INC., [employer] LEZAMA, LEZAMA Unavailable Unavailable LEZAMA LASHON, LEZAMA LASHON Unavailable Unavailable [facility] Unavailable Unavailable [facility]PITAL, [facility] Unavailable Unavailable PRACTICE L, [facility] [employer] Unavailable Unavailable CORBIN JAM, CORBIN JAM Unavailable Unavailable [facility], Unavailable Unavailable [facility] SARAH, Unavailable Unavailable [facility] SARAH BUTROS MARISEL, BUTROS Unavailable Unavailable MARISEL [facility], Unavailable Unavailable [facility] PIERCE MARIANA, PIERCE Unavailable Unavailable MARIANA PIERCE MARIANA, PIERCE Unavailable Unavailable MARIANA [facility] Unavailable Unavailable [facility], [facility] Unavailable Unavailable [facility], [facility] ANNE ALDEN, ANNE Unavailable Unavailable ALDEN CHATTHA SHANNON, CHATTHA Unavailable Unavailable [facility] Unavailable Unavailable [place] WAI ANIBAL, CARRENO [...] [facility] MCINTYRE, MCINTYRE Unavailable Unavailable [facility] Unavailable Unavailable GROUP PS, [facility] Unavailable Unavailable [facility], [facility], Unavailable Unavailable [facility] Unavailable Unavailable [facility], [facility] Unavailable Unavailable [facility], [facility] Unavailable Unavailable [facility], [facility] Unavailable Unavailable [facility]INGS, [facility], Unavailable Unavailable [facility] ADLER TONYA, ADLER Unavailable Unavailable TONYA [...] B MAUL PRANAV, MAUL PRANAV Unavailable Unavailable [facility] Unavailable Unavailable ASSOCIAT, [facility] MOODY LOPEZ JR Unavailable Unavailable F, JOHN RODRIGUEZ, MOODY F [facility] Unavailable Unavailable [facility]ARE [facility], [facility], [employer] HATTIE Unavailable Unavailable [facility], [facility], [employer] [facility] MAYBERRY DARRION, MAYBERRY DARRION Unavailable Unavailable MAYBERRY DARRION, MAYBERRY DARRION Unavailable Unavailable [facility], Unavailable Unavailable [facility] HERBERTH EDW, HERBERTH Unavailable Unavailable EDW HERBERTH EDW, HERBERTH Unavailable Unavailable EDW MD STEPHEN CORTEZ, DIEGO, Unavailable Unavailable MD [facility], Unavailable Unavailable [facility] Unavailable Unavailable AMBULANCE SE, [facility] Unavailable Unavailable AMBULANCE SE, [facility] Unavailable Unavailable URGENT TREAT, [facility], Unavailable Unavailable PLLC, [facility] SCHULTE CHR, SCHULTE CHR Unavailable Unavailable SCHULTE CHR, [facility] Unavailable Unavailable [facility] Unavailable Unavailable LAB, [facility] PICKLESIMER JR RADAMES, Unavailable Unavailable PICKLESIMER JR RADAMES [facility], [facility] PRAKASH MUH, PRAKASH Unavailable Unavailable MUH WAI C, WAI C Unavailable Unavailable TEE JAIN, Unavailable Unavailable TEE JAIN JR. [...] Unavailable Unavailable EQUIPME, [facility] Unavailable Unavailable EMERGENCY PHYS, [facility] SPIREK ANI, SPIREK Unavailable Unavailable ANI SPIREK ANI, SPIREK Unavailable Unavailable ANI SPIREK, MONROE J, Unavailable Unavailable SPIREK, MONROE J [facility] Unavailable Unavailable AUSTEN, [facility] EVI MAR, EVI Unavailable Unavailable [facility] Unavailable Unavailable [facility], [place] [facility] HOFFMAN ANIBAL, Unavailable Unavailable [facility] AN[facility]AL BROOKS DIOGENES, BROOKS Unavailable Unavailable DIOGENES SWINEY PAT, SWINEY Unavailable Unavailable PAT SWINEY PAT, SWINEY Unavailable Unavailable PAT TANOUS, JR EDW, Unavailable Unavailable TANOUS, JR EDW TANOUS, JR EDW, Unavailable Unavailable TANOUS, JR EDW ELADIO, ELADIO Unavailable Unavailable [facility] Unavailable Unavailable LLC, [facility] MARYANN ALICIA, MARYANN Unavailable Unavailable ALICIA MARYANN ALICIA, MARYANN Unavailable Unavailable [facility], Unavailable [facility]available [facility] Unavailable [facility] VILLAFLOR OSI, Unavailable Unavailable VILLAFLOR OSI VILLAFLOR OSI, Unavailable Unavailable VILLAFLOR OSI VORKPOR EMIGDIO, VORKPOR Unavailable Unavailable EMIGDIO VORKPOR EMIGDIO, VORKPOR Unavailable Unavailable EMIGDIO [facility] Unavailable Unavailable #[id number], [id number] # Unavailable Unavailable [id number], [facility] # [id number] [facility] Unavailable Unavailable DEPT KIERA, [facility] DE[facility] KIER[facility] Unavailable [facility]available [facility], [facility] YON[facility]ANG AL[facility], Unavailable Unavailable [facility] YOUNG VIRGINIE, YOUNG VIRGINIE Unavailable Unavailable YOUNG JR VIRGINIE, YOUNG Unavailable Unavailable JR VIRGINIE YOUNG JR VIRGINIE, YOUNG Unavailable Unavailable JR VIRGINIE YOUNG, DINAH R, Unavailable Unavailable YOUNG, DINAH R [facility], Unavailable Unavailable [facility] RADHA, RADHA Unavailable Unavailable RADHA MAT, RADHA MAT Unavailable Unavailable Purpose Continuity of Care Document - 02-19-2007 through 2016 Problems Code Diagnosis DOS Provider Status R21 RASH AND 08-01-2017 [facility] NONSPECIFIC ASSOC OF SKIN ERUPTION [id number] ADVERS EFF 08-01-2017 [facility] OTH RX MEDS [facility] BIO ASSOC OF SUBSTANCES INIT ENC J639HPE ANAPHYLACTI 08-01-2017 [facility] C SHOCK AST[facility] UNSPECIFIED ASSOC OF TH INITIAL ENCOUNTER J029 ACUTE 06-27-2017 [facility] PHARYNGITIS [facility]IC UNSPECIFIED J4521 MILD 06-27-2017 [facility] INTERMITTEN CLINIC T ASTHMA WITH ACUTE EXACERBATIO N R198 OTH SPEC SX 06-13-2017 [facility] SIGNS HEALTH INVLV THE CORYDON DIGESTV SYS & ABD V77995 ENCOUNTER 06-07-2017 [facility] FIELD RESEARCH ASSOCIATE EXAM DISTRICT GENERAL RTN HLTH DEPT W/O [...] TEST RESULT KIERA NEGATIVE R5383 OTHER 06-06-2017 [facility] FATIGUE [facility] CORY[facility] Z0000 ENCOUNTER 06-06-2017 [facility] GEN ADULT [facility]ALTH MED EXAM CORYDON W/O ABNORMAL FIND K5900 CONSTIPATIO 05-16-2017 [facility] [place] RADIOLOGY UNSPECIFIED R109 UNSPECIFIED 05-16-2017 [facility] R197 DIARRHEA 05-16-2017 [facility] [place] UNSPECIFIED RADIOLOGY R8290 UNSPECIFIED 05-16-2017 [facility] ABNORMAL ELIZ[facility]ETH FINDINGS IN HOLDINGS URINE S2793FF TOX EFF 02-08-2017 [facility] SOURCE GROUP ACC INITIAL ENC T81380 MIGRAINE 02-07-2017 [facility] UNS NOT EMERGENCY INTRACT W/O PHYS PSC STATUS MIGRAINOSUS W57009 UNSPECIFIED 02-07-2017 [facility] ASTHMA HEALTH UNCOMPLICAT CORYDON ED K589 IRRITABLE 02-07-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[facility] SYNDROME C[facility] WITHOUT DIARRHEA M4606 SPINAL 02-07-2017 NONA ENTHESOPATH Y LUMBAR REGION M545 LOW BACK 02-07-2017 NONA PAIN G37605 MUSCLE 02-07-2017 NONA SPASM OF BACK M9903 SEGMENTAL & 02-07-2017 NONA SOMATIC DYSFUNCTION OF LUMBAR REGION M9904 SEGMENTAL & 02-07-2017 NONA SOMATIC DYSFUNCTION OF SACRAL REGION R1110 VOMITING 02-07-2017 BRUNO FAYETTE UNSPECIFIED URBAN COGOVT R410 DISORIENTAT 02-07-2017 BRUNO FAYETTE ION URBAN UNSPECIFIED COGOVT R4182 ALTERED 02-07-2017 [facility] STATUS ASSOC UNSPECIFIED R51 HEADACHE 02-07-2017 BRUNO FAYETTE URBAN COGOVT R569 UNSPECIFIED 02-07-2017 [facility] CONVULSIONS CORYDON K71962M STRAIN 02-07-2017 NONA MUSCLE FASCIA & TENDON LOW BACK INITIAL Z833 FAMILY 02-07-2017 [facility] HISTORY OF HEALTH DIABETES CORY[facility] MELLITUS Z880 ALLERGY 02-07-2017 [facility] STATUS TO HEALTH PENICILLIN CORYDON Z888 ALLERGY 02-07-2017 [facility] STATUS OT HEALTH RX MEDS & CORYDON BIOLOG SUBSTANC STS J101 FLU D/T OTH 01-17-2017 [facility] ID FLU CLINIC VIRUS OTH RESP MANIFESTATI ONS R05 COUGH 01-17-2017 [facility] J209 ACUTE 12-24-2016 [facility] BRONCHITIS [facility] UNSPECIFIED INC J40 BRONCHITIS 12-24-2016 [facility] NOT PHYSICIANS, SPECIFIED PLLC ACUTE OR CHRONIC Z7689 PERSONS 12-15-2016 [facility]TH KIERA CIRCUMSTANC ES J020 STREPTOCOCC 12-10-2016 [facility] AL [facility]INIC PHARYNGITIS G38691 PAIN IN 10-23-2016 [facility] RIGHT N EMERGENCY SHOULDER PHYS D91051 PAIN IN 10-23-2016 [facility] [place] RIGHT ELBOW RADIOLOGY X41369 PAIN IN 10-23-2016 [facility] [place] RIGHT KNEE RADIOLOGY R0781 PLEURODYNIA 10-23-2016 [facility] PH[facility] R0789 OTHER CHEST 10-23-2016 [facility] [place] PAIN RADIOLOGY V47102M ABRASION OF 10-23-2016 [facility] ELBOW PHYS INITIAL ENCOUNTER K09523Y ABRASION 10-23-2016 [facility] RIGHT KNEE N EMERGENCY INITIAL PHYS ENCOUNTER X83781 OTHER LONG 10-23-2016 [place] TERM COMMUNITY CURRENT [...] AGE R040 EPISTAXIS 06-07-2016 [facility] [place] RADIOLOGY A0782JN CONTUSION 06-07-2016 [facility] NOSE N EMERGENCY [...] [facility] HOLDINGS K219 GASTRO-ESOP 04-28-2016 [facility] REFLUX ANESTHESIA DISEASE GROUP PS WITHOUT ESOPHAGITIS A0839 OTHER VIRAL 01-15-2016 [facility] ENTERITIS [facility] URGENT TREAT J4530 MILD 01-15-2016 [facility] ASTHMA URGENT UNCOMPLICAT TREAT ED 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 KIERA J028 ACUTE 11-24-2015 [facility] PHARYNGITIS [facility] DUE TO URGENT OTHER SPEC TREAT ORGANISMS J4522 MILD 11-24-2015 [facility] T ASTHMA URGENT WITH STATUS TREAT ASTHMATICUS R062 WHEEZING 11-24-2015 [facility] URGENT TREAT R102 PELVIC AND 10-17-2015 VORKPOR EMIGDIO PERINEAL PAIN D529 FOLATE 09-10-2015 [facility] DEFICIENCY DISTRICT ANEMIA HLTH DEPT UNSPECIFIED KIERA Z23 ENCOUNTER 09-10-2015 [facility] FOR DISTRICT IMMUNIZATIO HLTH DEPT N KIERA R1310 DYSPHAGIA 09-05-2015 EAR, NOSE UNSPECIFIED AND THROAT SPECIAL R1313 DYSPHAGIA 09-01-2015 [facility] PHARYNGEAL [facility] PHASE URGENT TREAT 5589 OTH&UNSPEC 06-14-2015 RANI BEAL NONINFECTIO US GASTROENTER ITIS&COLITI S 16911 NAUSEA WITH 06-14-2015 [facility] [place] VOMITING RADIOLOGY 19699 ABDOMINAL 06-14-2015 RANI BEAL PAIN RIGHT LOWER QUADRANT V2549 SURVEILLANC 06-10-2015 [facility] E OTH PREV DISTRICT PRSC [facility] DEPT CONTRACEPT KIERA METHOD V2689 OTHER 06-10-2015 [facility] SPECIFIED DISTRICT PROCREATIVE [facility] DEPT MANAGEMENT KIERA 10474 ASTHMA, 05-08-2015 [facility] UNSPECIFIED [facility] , INC UNSPECIFIED STATUS 99688 UNSPECIFIED 05-08-2015 [facility] SITE OF PHYSICIANS, ANKLE PLLC SPRAIN AND STRAIN 2299 BENIGN 05-06-2015 [place] NEOPLASM OF [facility] HOSPITAL UNSPECIFIED SITE 5990 URINARY 05-06-2015 SW[facility] PAT TRACT INFECTION SITE NOT SPECIFIED 6202 OTHER AND 05-06-2015 SW[facility] PAT UNSPECIFIED OVARIAN CYST 18610 ABDOMINAL 05-06-2015 [place] PAIN, [facility] UNSPECIFIED HOSPITAL SITE 7919 OTHER 05-06-2015 [facility] NONSPECIFIC COMMUNITY FINDING HOSPITAL EXAMINATION OF URINE V140 PERSONAL 05-06-2015 [place] HISTORY OF COMMUNITY ALLERGY TO HOSPITAL PENICILLIN V1582 PERS HX 05-06-2015 [facility] TOBACCO USE COMMUNITY PRESENTING HOSPITAL HAZARDS HEALTH 33973 PAIN IN 02-22-2015 [facility] [place] JOINT RADIOLOGY PELVIC REGION AND THIGH 49093 CHEST PAIN 02-22-2015 [facility] UNSPECIFIED [facility] AMBULANCE SE 8470 NECK SPRAIN 02-22-2015 [facility] EDW AND STRAIN 8472 LUMBAR 02-22-2015 [facility] EDW SPRAIN AND STRAIN 9221 CONTUSION 02-22-2015 [facility] EDW OF CHEST WALL 9222 CONTUSION 02-22-2015 [facility] EDW OF ABDOMINAL WALL 04566 INJURY OF 02-22-2015 [facility] [place] FACE AND RADIOLOGY NECK OTHER AND UNSPECIFIED 06256 OTHER 02-22-2015 [facility] [place] INJURY OF RADIOLOGY OTHER SITES OF TRUNK 3688 OTHER 02-03-2015 [facility] SPECIFIED MEDICAL VISUAL IMAGING ASS DISTURBANCE S 7231 CERVICALGIA 02-03-2015 [facility] 6259 UNSPEC 12-19-2014 [facility] [place] SYMPTOM RADIOLOGY ASSOC W/FEMALE GENITAL ORGANS 89118 ABDOMINAL 12-19-2014 [place] TENDERNESS [facility] RIGHT LOWER HOSPITAL QUADRANT V1329 PERSONAL HX 12-19-2014 [facility]&OBST ETRIC D/O 7804 DIZZINESS 12-11-2014 [facility] AND CLINIC GIDDINESS 08902 ACUTE 12-03-2014 IN[facility] SEROUS CHAD OTITIS MEDIA 4770 ALLERGIC 12-03-2014 INGE RHINITIS CHAD DUE TO POLLEN 4778 ALLERGIC 12-03-2014 IN[facility] RHINITIS CHAD DUE TO OTHER ALLERGEN 73581 EXTRINSIC 12-03-2014 INGE ASTHMA, CHAD WITH EXACERBATIO N 0088 INTESTINAL 11-01-2014 HOUSVINH SOY INFECTION DUE TO OTHER ORGANISM NEC 84764 DIARRHEA 11-01-2014 RACHEL SOY 5362 PERSISTENT 10-31-2014 KABA SATYA VOMITING 44822 SHORTNESS 10-27-2014 [facility] [facility] 61062 ASTHMA 10-24-2014 [facility] UNSPECIFIED CLINIC WITH EXACERBATIO N 82749 UNSPECIFIED 10-23-2014 [facility] SLEEP PRIMARY DISTURBANCE CARE CLI 11404 INSOMNIA 10-23-2014 [facility]ULT UNSPECIFIED PRIMARY CARE CLI 3829 UNSPECIFIED 10-15-2014 [facility] OTITIS [facility] MEDIA HOLDINGS 462 ACUTE 10-15-2014 [facility] PHARYNGITIS [facility] HOLDINGS 39423 GENERALIZED 10-15-2014 [facility] PAIN [facility] HOLDINGS 0549 HERPES 10-10-2014 [facility] MENTION OF COMPLICATIO N 0340 STREPTOCOCC 10-09-2014 [facility] AL SORE CLINIC THROAT 36584 UNSPECIFIED 09-30-2014 [facility] INFECTIVE CLINIC OTITIS EXTERNA 7862 COUGH 09-30-2014 [facility] 4779 ALLERGIC 08-22-2014 [facility] RHINITIS PRIMARY CAUSE CARE CLI UNSPECIFIED 7245 UNSPECIFIED 08-22-2014 [facility]ULT BACKACHE PRIMARY CARE CLI 7177 CHONDROMALA 08-14-2014 [facility] S SPORT 38625 PAIN IN 08-10-2014 [facility] JOINT, [place] AUSTEN 27063 PAIN IN 07-30-2014 [place] JOINT, MEDICAL SHOULDER IMAGING ASS REGION 8409 SPRAIN&STRA 07-30-2014 FLAVIO JANA IN UNSPEC SITE SHOULDER&UP PER ARM E9288 OTHER 07-30-2014 FLAVIO JANA ACCIDENT 88067 SPRAIN AND 07-12-2014 SCHULTE CHR STRAIN OF DELTOID OF ANKLE 95813 UNSPECIFIED 06-11-2014 LUIS FERNANDO LES TINNITUS 02444 SUBJECTIVE 06-11-2014 [facility] TINNITUS PHYSICIAN PRACTICE L 3899 UNSPECIFIED 06-11-2014 [facility] HEARING PHYSICIAN LOSS PRACTICE L 66220 UNSPECIFIED 06-06-2014 [facility] VAGINITIS CLINIC AND VULVOVAGINI TIS 7821 RASH AND 06-06-2014 [facility] OTHER CLINIC NONSPECIFIC SKIN ERUPTION 91884 UNSPECIFIED 05-31-2014 [facility] OTALGIA CLINIC 16920 PAIN IN 05-31-2014 [facility] JOINT, CLINIC ANKLE AND FOOT 57554 OTHER 02-25-2014 INGE CHRONIC CHAD ALLERGIC CONJUNCTIVI TIS 25832 EXTRINSIC 02-25-2014 INGE ASTHMA, CHAD UNSPECIFIED 7840 HEADACHE 02-13-2014 [facility] [place] 4659 ACUTE URIS 02-01-2014 ASTRID JONES OF UNSPECIFIED SITE V202 ROUTINE 01-14-2014 [facility] CHILD HEALTH CHECK 07056 WHEEZING 12-20-2013 [place] ANIBAL V0481 NEED 12-06-2013 [facility] PROPHYLACTI [place] C VACCINATION &INOCULATIO N FLU 65109 UNSPECIFIED 11-08-2013 [facility] ACUTE [place] NONSUPPURAT MORENITA OTITIS MEDIA 4772 ALLERGIC 11-05-2013 [facility] RHINITIS CHAD DUE TO ANIMAL HAIR AND DANDER V727 DIAGNOSTIC 11-05-2013 INGE SKIN AND CHAD SENSITIZATI ON TESTS 7295 PAIN IN 10-30-[address] 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 [facility] H[facility] 7881 DYSURIA 10-30-2013 [facility] [place] 9599 INJURY 10-30-2013 HAGENSCHNEI OTHER AND CARLOS LASHON UNSPECIFIED UNSPECIFIED SITE 01689 ACUT 10-11-2013 INGE SUPPRATV CHAD OTITIS MEDIA W/O SPONT RUP EARDRUM V720 EXAMINATION 10-11-2013 DREW OF EYES GRE AND VISION 93332 DISORDERS 10-09-2013 ASTRID NAN OF SOFT TISSUE UNSPECIFIED 4739 UNSPECIFIED 09-20-2013 [facility] SINUSITIS CHAD 94638 EXTRINSIC 09-20-2013 INGE ASTHMA WITH CHAD STATUS ASTHMATICUS 04895 OBESITY, 09-07-2013 [facility] UNSPECIFIED [facility] 46184 CHRONIC 09-07-2013 JR TANIA CHOLECYSTIT EDW IS 5758 OTHER 09-07-2013 SIENNA ANT SPECIFIED DISORDER OF GALLBLADDER 5759 UNSPECIFIED 09-04-2013 [facility] DISORDER [facility] GALLBLADDER V7284 UNSPECIFIED 09-04-2013 [facility] VE EXAMINATION 37391 ABDOMINAL 08-08-2013 RUSSEL RHO PAIN RIGHT UPPER QUADRANT 11969 VOMITING 07-28-[address] [facility], ALONE [employer] MARKETING MANAGER [facility] HOS 486 PNEUMONIA, 06-20-2013 HAGENSCHNEI ORGANISM CARLOS LASHON UNSPECIFIED 4660 ACUTE 06-18-2013 PIERCE MARIANA BRONCHITIS 2150 OTH HANK 04-10-2013 ADLER TONYA NEOPLSM CNCTV&OTH SFT TISS HEAD FCE&NCK 71350 NEOPLASMS 04-10-2013 HOWARD JANA UNSPECIFIED NATURE OTH SPECIFIED SITES 79164 ESOPHAGEAL 04-10-2013 [facility] 7856 ENLARGEMENT 04-10-2013 [facility] NODES V7263 PRE-PROCEDU 04-02-[address] 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, WEIGHT GAIN [employer]COMMERCE MARKETING MANAGER [facility] HOS 7842 SWELLING 02-28-[address] [facility], MASS OR [facility] IN [facility] HEAD AND HOS NECK V770 SCREENING 02-28-[address] [facility], FOR THYROID [employer]ERCE MARKETING MANAGER DISORDER [facility] HOS V771 SCREENING 02-28-[address] [facility], FOR [employer]CE MARKETING MANAGER DIABETES [facility] MELLITUS HOS 6119 UNSPECIFIED 12-07-2012 MARYANN ALICIA BREAST DISORDER 6262 EXCESSIVE 12-07-2012 MARYANN ALICIA OR FREQUENT MENSTRUATIO N 40656 OTHER 12-07-2012 MARYANN ALICIA MALAISE AND FATIGUE 29157 HEAD 11-08-2012 PAL[facility] INJURY, AMBULETT & UNSPECIFIED AMBULANC 7291 UNSPECIFIED 11-01-2012 AHMED ADN MYALGIA AND MYOSITIS 59546 ABDOMINAL 11-01-2012 AHMED ADN PAIN OTHER SPECIFIED SITE 88786 EOSINOPHILI 09-19-2012 FLOMENHOFT C MANUEL ESOPHAGITIS 2883 EOSINOPHILI 08-28-2012 [facility] 5368 DYSPEPSIA&O 08-28-2012 [facility] DISORDERS FUNCTION STOMACH 5379 UNSPECIFIED 08-28-2012 [facility] OF STOMACH HOSPI AND DUODENUM 5699 UNSPECIFIED 08-28-2012 M[facility]TH OF [place] DISORDER [facility] INTESTINE 81649 NAUSEA 08-28-2012 [facility] 86507 ABDOMINAL 08-28-2012 [place] [facility], LEFT SERVICES LOWER QUADRANT 81169 ABDOMINAL 08-28-2012 [facility] ALICE, HOSPITAL GENERALIZED V643 PROCEDURE 08-27-2012 [facility], NOT CARRIED [employer]COMMERCE MARKETING MANAGER OUT FOR [facility] TELLO OTHER HOS REASONS 11822 SWELLING OF 08-25-[address] [facility], LIMB ECOMMERCE MARKETING MANAGER [facility]ATTIE TELLO HOS E8809 ACCIDENTAL 08-25-2012 CANISTE[facility] FALL ON OR RADIOLOGY FROM OTHER ASSOCIAT STAIRS OR STEPS E8889 UNSPECIFIED 08-25-2012 AHMED ADN FALL 4610 ACUTE 08-01-2012 [facility] MAXILLARY SINUSITIS 12325 OPEN WOUND 03-07-2012 [facility] TELLO LIP WITHOUT HOSPITAL MENTION COMPLICATIO N E8490 PLACE OF 03-07-2012 [facility] TELLO OCCURRENCE, HOSPITAL HOME E8888 OTHER FALL 03-07-2012 [facility] 6200 FOLLICULAR 12-27-2011 PER JR CYST OF [place] OVARY 3814 NONSUPPRATV 12-10-2011 JEFE DARRION OTITIS MEDIA NOT SPEC ACUT/CHRON V7231 ROUTINE 11-29-2011 PATHOLOGY & GYNECOLOGIC CYTOLOGY AL LAB EXAMINATION 4619 ACUTE 11-25-2011 MAYBERRY DARRION SINUSITIS, UNSPECIFIED 52616 URINARY 11-25-2011 MAYBERRY DARRION FREQUENCY 6260 ABSENCE OF 10-13-2011 [facility] [employer] 61814 PAIN IN 10-01-2011 [facility] JOINT, RADIOLOGY UPPER ARM ASSOCIAT 08159 CONTUSION 10-01-2011 [facility] OF [facility] 9593 INJURY 10-01-2011 [facility] OTHER&UNSPE RADIOLOGY CIFIED ASSOCIAT [facility]RI [address] 6252 MITTELSCHME 09-19-2011 [facility] OSI 20584 PAIN IN 06-16-2011 [facility] JOINT, HAND RADIOLOGY ASSOCIAT 7937 NONSPC ABN 06-16-2011 [facility] FINDNG RAD RADIOLOGY & OTH EXM ASSOCIAT MUSCULSKELT L SYS 21086 CLOS 06-16-2011 [facility] MID/PROXIMA L PHALANX/PHA LANG HAND 19431 SPRAIN AND 06-16-2011 [facility] STRAIN OF HOSPITAL UNSPECIFIED SITE OF HAND 98912 CONTUSION 06-16-2011 [facility] OF [facility] 9594 INJURY 06-16-2011 [facility] OTHER AND RADIOLOGY UNSPECIFIED ASSOCIAT HAND EXCEPT FINGER E9270 OVEREXERTIO 06-16-2011 [facility] N FROM HOSPITAL SUDDEN STRENUOUS MOVEMENT 6253 DYSMENORRHE 10-21-2010 SPIRE[facility] ANI A 4658 ACUTE URIS 10-13-2010 ROSAM[facility]IA [place] OF OTHER MULTIPLE SITES 4871 INFLUENZA 10-13-2010 [facility] WITH OTHER HOSPITAL RESPIRATORY MANIFESTATI ONS 14049 OTHER 10-13-2010 [facility] ASCITES RADIOLOGY ASSOCIAT E8496 PLACE OF 04-13-2010 [facility] PUBLIC BUILDING E9175 STRIKE 04-13-2010 [facility] K ACC OTH OBJ SPORTS W/FALL 2564 POLYCYSTIC 02-05-2010 [facility] 5950 ACUTE 02-03-2010 [facility] 6268 OTH D/O 12-10-2009 [facility] N&OTH ABN CLINIC BLEED FE GNT TRACT 78663 UNSPECIFIED 06-24-2009 [facility] BINOCULAR VISION VISION ANDLEARNING DISORDER 28869 NYSTAGMUS 06-24-2009 [facility] W/DEFIC VISION SMOOTH ANDLEARNING PURSUIT MOVEMENTS 9063 LATE EFFECT 05-26-2009 [facility] OF HOSPITAL CONTUSION 73768 CONTUSION 05-25-2009 [facility] OF [facility] E8499 UNSPECIFIED 05-25-[address] HOSPITAL OCCURRENCE E8859 FALL FROM 05-25-2009 [facility] OTHER HOSPITAL SLIPPING TRIPPING OR STUMBLING 14683 VISUAL 04-01-2009 [facility] 92693 MIGRAINE 04-17-2008 [facility] W/O [facility] W/O INTRACT W/O STAT MIGRNOSUS 63033 EFFUSION OF 03-30-2008 [facility] 7812 ABNORMALITY 03-30-2008 [facility] 845 SPRAINS AND 03-30-2008 [facility] TE[facility] STRAINS OF [facility]OSP[facility] ANKLE AND FOOT 9160 HIP THI 03-30-2008 [facility] ABRASION/FR ICION BURN W/O INF 9170 ABRASION/FR 03-30-2008 [facility] I[facility] FOOT&TOE W/O MENTION INF 71787 CONTUSION 03-30-2008 [facility] V642 SURG/OTH 03-30-2008 [facility] TELLO PROC NOT HOSPITAL CARRIED OUT BECAUSE PTS DECN 460 ACUTE 12-22-2007 [facility] [place] ITIS INTERNAL MED 4780 HYPERTROPHY 12-18-2007 INGE, OF NASAL CHAD B TURBINATES 9953 ALLERGY 12-08-2007 [facility] UNSPECIFIED [place] NOT INTERNAL ELSEWHERE MED CLASSIFIED 5184 UNSPECIFIED 02-22-2007 [facility] EDEMA OF PEDIA LUNG 5839 NEPHRITIS&N 02-22-2007 [facility] NOT AC/CHRN PEDIA W/UNS PATHAL LES Medications [...] 34 7- 1- 00 01 UC ve OR 59 20 20 04 [place] ED 31 [...] 06 07 30 30 00 KE Ac OR 37 -2 -2 .0 00 NT ti [...] 80 6- 8- 00 01 UC ve OR 01 20 20 03 [place] AM 00 [...] 80 2- 6- 00 01 UC ve OR 01 20 20 03 KY AM 00 17 17 07 5 85 CV HB S R PH 20 AR MA MG CY TA LL BL C, ET DB A CV S PH AR MA CY #3 01 6 OR 00 05 06 60 30 00 KE [...] 80 0- 8- 00 01 UC ve OR 01 20 20 01 KY AM 00 [...] 03 04 28 14 00 KE Ac OR 16 -1 -0 .0 00 NT ti [...] 01 KY ZA 11 17 17 27 OR 0 45 CV IN S E PH 10 AR MA MG CY TA LL BL C, ET DB A CV S PH AR MA CY #3 01 6 OS 47 02 03 10 5 00 KE Ac EL 78 -2 -2 .0 00 NT ti TA 10 7- 4- 00 01 UC ve WY 47 20 20 00 KY 01 17 [...] PH AR MA CY #3 01 6 OR 00 02 03 10 5 00 KE [...] 1% 46 11 11 FA TH 0 WY AN SH LY L AM PO DR O UG MA 51 04 04 0 59 1 SO 37 WH Ac LA 67 -1 -1 .0 PE 09 EE ti TH 25 3- 3- 00 RS 00 LE ve IO 27 20 20 R N 70 11 11 FA KR 0. 4 WY IS 5% LY TI E LO DR [...] 0 30 15 WA 70 WH Ac OR 74 -1 -1 .0 L- 55 EE [...] JR IN 26 10 10 FA 7 WY CH 1% LY ES TE LO DR R TI UG R ON PE 00 11 11 1 59 2 SO 35 YO Ac RM 47 -0 -0 .0 PE 68 UN ti ET 25 8- 8- 00 RS 56 G ve HR 24 20 20 JR IN 26 10 10 FA 7 WY CH 1% LY ES TE LO DR [...] 00 7. 7 SO 30 JU Ac OR 06 -3 -0 50 PE 97 DY ti OD 58 0- 9- 0 RS 96 ve EX 53 20 20 NA 30 09 09 FA TA OT 2 WY LI IC LY E E MARIE DR DE LA GARZA UG EN SI ON 59 03 04 00 20 10 SO 30 JU Ac 76 -3 -0 .0 PE 97 DY ti 22 0- 9- 00 RS 95 ve 18 20 20 NA 00 09 09 FA TA 1 WY LI LY E E DR KEN OR 60 03 03 00 12 5 SO 30 HU Ac OM 43 -1 -2 0. PE 86 NT ti ET 20 7- 6- 00 RS 30 ER ve NAILS 60 20 20 0 ZI 41 09 09 FA NA NE 6 WY NC -D LY Y M C SY DR TRAN UG P TA 00 03 03 00 10 5 SO 30 HU Ac WY 00 -1 -2 .0 PE 86 NT ti FL 40 7- 6- 00 RS 44 ER ve U 80 20 20 75 08 09 09 FA NA 5 WY NC MG LY Y C CA DR PS UG UL E AB 59 01 00 45 30 SO 30 HU Ac IL 14 -1 -3 .0 PE 32 NT ti IF 80 3- 0- 00 RS 87 ER ve Y 00 20 20 5 71 09 09 FA NA MG 3 WY NC LY Y TA C BL DR ET UG OR 50 01 01 00 60 30 SO 30 HU Ac OP 11 -1 -3 .0 PE 32 NT ti RA 10 3- 0- 00 RS 85 ER ve NO 46 20 20 LO 70 09 09 FA NA L 1 WY NC 10 LY Y C MG [address] UG TA BL ET 60 01 01 00 12 3 SO 30 HU Ac 25 -1 -3 0. PE 32 NT ti 80 3- 0- 00 RS 84 ER ve 23 20 20 0 91 09 09 FA NA 6 WY NC LY Y C DR UG AB 59 06 06 00 15 30 SO 28 No Ac IL 14 -0 -1 .0 PE 58 t ti IF 80 5- 2- 00 RS 88 Av ve Y 00 20 20 ai 5 71 08 08 FA la MG 3 WY bl LY e TA BL ET UG 17 06 06 00 15 15 SO 28 No Ac 31 -0 -1 .0 PE 58 t ti 45 5- 2- 00 RS 89 Av ve 85 20 20 ai 10 08 08 FA la 2 [place] bl LY e DR UG NA 00 03 00 17 30 SO 27 No Ac SO 08 -2 -2 .0 PE 41 t ti NE 51 8- 6- 00 RS 12 Av ve X 28 20 20 ai 50 80 08 08 FA la 1 WY bl MC LY e G NA DR SA UG L SP RA Y 00 03 00 30 30 SO 27 No Ac 09 -2 -2 .0 PE 41 t ti 51 8- 6- 00 RS 15 Av ve 29 20 20 ai 00 08 08 FA la 6 W[place] bl LY e DR UG 63 01 03 00 20 10 SO 27 No Ac 30 -2 -2 .0 PE 41 t ti 40 8- 6- 00 RS 14 Av ve 75 20 20 ai 12 08 08 FA la 0 WY bl LY e UG 17 03 00 30 30 SO 27 No Ac 31 -2 -2 .0 PE 34 t ti 45 1- 5- 00 RS 51 Av ve 85 20 20 ai 10 08 08 FA la 2 WY bl LY e UG AB 59 11 23 00 45 30 SO 27 No Ac IL 14 -2 -2 .0 PE 34 t ti IF 80 1- 5- 00 RS 53 Av ve Y 00 20 20 ai 5 71 08 08 FA la MG 3 WY bl LY e TA BL DR ET UG OR 50 01 03 00 60 30 SO 27 No Ac OP 11 -1 -2 .0 PE 33 t ti RA 10 8- 5- 00 RS 47 Av ve NO 46 20 20 ai LO 70 08 08 FA la L 1 WY bl [address] UG TA BL ET Immunization Name Date Rout CVX Reac Dose Comm Prov Is Faci e tion ent ider Refu lity Give sed n IIV3 01- 141 HAMI No HAMI 6-20 [place] VACC 14 [place] INE SPLI T VIRU [place] S 0.5 ML DOSA GE IM USE Procedures Procedure DOS Code Location Performer Comment IAADIADOO 89698 VELIA BARNETT 7 [place] [address] [address] REAL [facility] TIME W/IMAGE DOCUMENTA TION INJECTION J1050 [facility] MEDROXYPR [facility] DEPT [facility] DEPT OGESTERON KIERA KIERA E ACETATE 1 MG IADNA 97097 [facility] CHLAMYDIA 7 [facility] DEPT [facility] DEPT TRACHOMAT KIERA KIERA IS AMPLIFIED PROBE TQ URINE 92553 [facility] TEST [facility] DEPT [facility] DEPT VISUAL KIERA KIERA COLOR CMPRSN METHS IADNA 88270 [facility] NEISSERIA 7 [facility] DEPT [facility] DEPT GONORRHOE KIERA KIERA AE AMPLIFIED PROBE TQ CYANOCOBA 96012 NONDENOMINATIONAL NONDENOMINATIONAL ALFREDO [address] [place] [address] VITAMIN [facility] B-12 GENERAL 23985 NONDENOMINATIONAL NONDENOMINATIONAL [place] [address] HEALTH HEALTH PANEL [facility] LIPID 06471 NONDENOMINATIONAL NONDENOMINATIONAL [address] HEMOGLOBI [address] NONDENOMINATIONAL NONDENOMINATIONAL [address] GLYCOSYLA [facility] DOROTHY A1C CULTURE 96766 [facility] BACTERIAL 7 ELIZABETH ELIZABETH HOLDINGS HOLDINGS QUANTTATI VE COLONY COUNT URINE RADEX 10850 [facility] [place] SCALF ABDOMEN 1 7 RADIOLOGY ANTEROPOS TERIOR VIEW INJECTION J1050 [facility] MED[facility] DEPT HLTH DEPT OGESTERON KIERA KIREA E ACETATE 1 MG GROUND A0425 [facility] MILEAGE 7 FAYETTE FAYETTE PER URBAN URBAN STATUTE COGOVT COGOVT MILE APPL 15302 NONA NONA MODALITY 7 1/> AREAS ULTRASOUN D EA 15 MIN AMB A0427 [facility] SERVICE 7 FAYETTE FAYETTE ALS [facility]AN EMERGENCY [place] [address] [facility] HEAD/BRAI 7 RADIOLOGY N W/O ASSOC CONTRAST MATERIAL CHIROPRAC 61102 NONA NONA TIC 7 MANIPULAT [place] SPINAL 1-2 REGIONS APPL 43717 NONA NONA MODALITY 7 1/> AREAS ELEC STIMJ UNATTENDE D INITIAL 95144 [facility] 7 HEALTH ON MEDICAL CARE/DAY GROUP 70 [facility] G0378 [facility] 7 HEALTH HEALTH ON [facility] SERVICE PER HOUR CHIROPRAC 27777 NONA NONA TIC 7 MANIPULAT [place] SPINAL 1-2 REGIONS APPL 68803 NONA NONA MODALITY 7 1/> AREAS ELEC STIMJ UNATTENDE D APPL 64831 NONA NONA MODALITY 7 1/> AREAS ULTRASOUN D EA 15 MIN APPL 33355 NONA NONA MODALITY 7 1/> AREAS ULTRASOUN D EA 15 MIN CHIROPRAC 36702 NONA NONA TIC 7 MANIPULAT [place] SPINAL 1-2 REGIONS APPL 65573 NONA NONA MODALITY 7 1/> AREAS ELEC STIMJ UNATTENDE D IAADIADOO 04020 VELIA BARNETT 7 [place] [address] MIMI LE STREPTOCO 7 [facility] CCUS INC INC GROUP A IAADI 19110 MIMI LE INFLUENZA 7 [facility] B VIRUS INC INC IAADI 02137 MIMI LE INFFLUENZ 7 [facility] A A VIRUS INC INC CUL BACT 19611 MIMI LE XCPT 7 [facility] URINE INC INC BLOOD/STO OL AEROBIC ISOL RADIOLOGI 01033 MIMI LE C EXAM 7 [facility] CHEST 2 INC INC VIEWS FRONTAL&L ATERAL ANTIBODY 23908 [facility] TREPONEMA 7 [facility] DEPT KIERA KIERA IADNA 79397 [facility] NEISSERIA 7 [facility] DEPT GONORRHOE KIERA KIERA AE AMPLIFIED PROBE TQ INJECTION J1050 [facility] MEDROXYPR [facility] DEPT OGESTERON KIERA KIERA E ACETATE 1 MG IADNA 50290 [facility] CHLAMYDIA 7 [facility] DEPT TRACHOMAT KIERA KIERA IS AMPLIFIED PROBE TQ IAADIADOO 03944 VELIA LEZAMA 7 CLINIC STREPTOCO CCUS GROUP A RADEX 90132 [facility]BS 6 DARRIN PAT UNILATERA EMERGENCY L 2 VIEWS PHYS RADEX 11338 [facility] [place] RADHA ELBOW 6 RADIOLOGY COMPLETE MINIMUM 3 VIEWS RADIOLOGI 87264 [facility] [place] [facility] C 6 RADIOLOGY RADIOLOGY EXAMINATI ON KNEE 3 VIEWS INJECTION J1050 [facility] 6 [facility] MEDROXYPR [facility] DEPT OGESTERON KIERA KIERA E ACETATE 1 MG INJECTION J1050 [facility] 6 [facility] MED[facility]XYPR [facility] DEPT OGESTERON KIERA KIERA E ACETATE 1 MG CONTRACEP A4267 [facility] TIVE 6 [facility] SUPPLY [facility] DEPT CONDOM KIERA KIERA MALE EACH INJECTION J1100 VELIA BARNETT 6 [facility] DEXAMETHO SONE SODIUM PHOSPHATE 1 MG THERAPEUT 57715 VELIA BARNETT IC 6 [facility] PROPHYLAC TIC/DX INJECTION SUBQ/IM THER 42816 KASI VILLASEÑOR PROPH/DX 6 [facility] PUSH SINGLE/1S T SBST/DRUG THERAPEUT 31716 KASI VILLASEÑOR IC [address] [place] [address] INJECTION [facility] IV PUSH EACH NEW DRUG INJ J2930 KASI VILLASEÑOR METHYLPRD [address] [place] [address] SODIUM SUCCNAT TO 125 MG CONTRACEP A4267 [facility] TIVE 6 [facility] SUPPLY [facility] DEPT [facility] DEPT CONDOM KIERA KIERA MALE EACH IADNA 63587 [facility] NEISSERIA [address] [place] [address] DEPT [facility] DEPT GONORRHOE KIERA KIERA AE AMPLIFIED PROBE TQ IADNA 49832 VANNESSACO [facility] CHLAMYDIA [address] [place] [address] DEPT [facility] DEPT TRACHOMAT KIERA KIERA IS AMPLIFIED PROBE TQ INJECTION J1885 DANVERS MARIANNECOX MONETTEVGENY [address] [place] [address] KETOROLAC [facility] TROMETHAM INE PER 15 MG THERAPEUT 72387 KASI VILLASEÑOR IC [address] [place] [address] PROPHYLAC [facility] TIC/DX INJECTION SUBQ/IM RADEX 41699 [facility] [place] SCALF FERMÍN NASAL 6 RADIOLOGY BONES COMPLETE MINIMUM 3 VIEWS BLOOD 07397 KASI VILLASEÑOR COUNT [address] [place] [address] AUTO&AUTO DIFRNTL WBC COLLECTIO 66192 KASI VILLASEÑOR N VENOUS [address] [place] [address] VENIPUNCT URE COMPREHEN 30811 KASI VILLASEÑOR SIVE [address] [place] [address] HOSPITAL PANEL CYANOCOBA 47742 [facility] ALFREDO 6 ELIZABETH ELIZABETH VITAMIN HOLDINGS [place] B-[address] [place] [address] LAB F[facility] FOLIC 6 ELIZABETH ELIZABETH ACID HOLDINGS HOLDINGS SERUM IAADIADOO 62491 VELIA GUNN [address] [place] [address] STREPTOCO CCUS GROUP A BASIC 54364 [facility] METABOLIC 6 ELIZABETH ELIZABETH PANEL [facility]INGS HOLDINGS CALCIUM TOTAL ANES 91618 MATILDE JEAN UPPER GI 6 ANESTHESI ENDOSCOPY A GROUP PROXIMAL PS TO DUODENUM INJECTION J1050 [facility] [address] [place] [address] MEDROXYPR HLTH DEPT HLTH DEPT OGESTERON KIERA KIERA E ACETATE 1 MG URINE 30372 VELIA VELIA 6 CLINIC CLINIC TEST VISUAL COLOR CMPRSN METHS GENERAL 00085 [facility] HEALTH 6 ELIZABETH ELIZABETH PANEL HOLDINGS HOLDINGS HPYLORI 22717 [facility] BREATH 6 ELIZABETH ELIZABETH ANAL HOLDINGS HOLDINGS UREASE ACT NON-RADAC T ISTOPE CYANOCOBA 14419 [facility] ALFREDO 6 ELIZABETH ELIZABETH VITAMIN HOLD[facility] [place] B-[address] [place] [address] [facility] LIPASE 6 ELIZABETH [place] [address] [facility] FREE 6 ELIZABETH ELIZABETH [place] [address] LAB FANT[facility] FOLIC 6 ELIZABETH ELIZABETH [place] [address] LAB FANTA [facility] AMYLASE 6 ELIZABETH ELIZABETH [facility]INGS HOLDINGS IAADIADOO 68892 HATTIE RESENDIZ 5 [facility] STREPTOCO URGENT CCUS TREAT GROUP A CONTRACEP A4267 [facility] TIVE 5 [facility] SUPPLY [facility] DEPT [facility] DEPT CONDOM KIERA KIERA MALE EACH INJECTION J1050 [facility] [address] [place] [address] MEDROXR [facility] DEPT [facility] DEPT OGESTERON KIERA KIERA E ACETATE 1 MG LARYNGOSC 46277 EAR, NOSE SHASHY OPY 5 AND MIRANDA FLEXIBLE THROAT DIAGNOSTI SPECIAL C IAADIADOO 43967 HATTIE RESENDIZ [address] [place] [address] [place] [address] [facility] [place] CORBIN JAM ABDOMEN & 5 RADIOLOGY PELVIS W/O CONTRAST MATERIAL CONTRACEP A4267 [facility] TIVE 5 [facility] SUPPLY [facility] DEPT [facility] DEPT CONDOM KIERA KIERA MALE EACH URINE 23211 [facility] 5 [facility] TEST TH DEPT [facility] DEPT VISUAL KIERA KIERA COLOR CMPRSN METHS IADNA 77300 [facility] CHLAMYDIA 5 [facility] DEPT [facility] DEPT TRACHOMAT KIERA KIERA IS AMPLIFIED PROBE TQ INJECTION J1050 [facility] 5 [facility] MEDROXYPR TH DEPT HLTH DEPT OGESTERON KIERA KIERA E ACETATE 1 MG IADNA 58446 [facility]PT GONORRHOE KIERA KIERA AE AMPLIFIED PROBE TQ RADEX 58040 MIMI LE ANKLE 5 [facility] COMPLETE INC INC MINIMUM 3 VIEWS CRTCHS E0114 [facility] ADVANCED UNDARM 5 TECHNOLOG TECHNOLOG OTH THAN IES INC IES INC WOOD PAIR PAD TIP&HNDGR IP BLOOD 13761 K[facility]I [place] COUNT [address] [place] [address] AUTO&AUTO DIFRNTL WBC URNLS DIP 69117 [facility] [place] [address] [place] [address] [facility] HOSPITAL LET REAGENT AUTO MICROSCOP Y THERAPEUT 95207 MARIANNECOX MONETTEVGENY VILLASEÑOR IC [address] [place] [address] INJECTION [facility] [place] [address] [facility] ABDOMEN & [address] [place] [address] PELVIS [facility] W/O CONTRAST MATERIAL THER 32752 MARIANNECOX MONETTEVGENY VILLASEÑOR PROPH/DX [address] [place] [address] HOSPITAL HOSPITAL PUSH SINGLE/1S T SBST/DRUG CULTURE 58274 [facility] BACTERIAL [address] [place] [address] QUANTTATI VE COLONY COUNT URINE URINE 02054 KASI VILLASEÑOR [address] [place] [address] VISUAL COLOR CMPRSN METHS INJECTION J1885 [facility] [address] [facility] TROMETHAM INE PER 15 MG COLLECTIO 88875 MARIANNECOX MONETTEVGENY VILLASEÑOR N VENOUS [address] [place] [address] BLOOD [facility] VENIPUNCT URE COMPREHEN 38746 MARIANNECOX MONETTEVGENY VILLASEÑOR SIVE [address] [place] [address] METABOLIC [facility] [place] [address] MARIANNECOX MONETTEVGENY LOPESCOX MONETTEVGENY AMYLASE [address] [place] [address] INJECTION J2405 MARIANNECOX MONETTEVGENY [place] [address] [place] [address] [address] HCL [address] [place] [address] [facility] [place] HAHEENABRAHI ANGIOGRAP 5 RADIOLOGY M DHAVAL HY CHEST W/CONTRAS [place] [address] [facility] [place] CORBIN JAM CERVICAL 5 RADIOLOGY SPINE W/O CONTRAST MATERIAL CT ANGIO 27731 [facility] [place] ROJAS ABD&PLVIS 5 RADIOLOGY JOSE CNTRST MTRL W/WO CNTRST IMG RADIOLOGI 57449 [facility] [place] ROJAS C 5 RADIOLOGY JOSE EXAMINATI ON PELVIS 1/[address] LUMBAR 85482 [facility] [place] CORBIN JAM SPINE 5 RADIOLOGY W/O CONTRAST MATERIAL GROUND A0425 HATTIE KUHN MILEAGE [address] [place] [address] PER AMBULANCE AMBULANCE STATUTE SE SE MILE RADIOLOGI 04463 [facility] [place] ROJAS C 5 RADIOLOGY JOSE EXAMINATI ON CHEST SINGLE VIEW FRONTAL AMB A0427 HATTIE KUHN SERVICE [address] [place] [address] ALS AMBULANCE AMBULANCE EMERGENCY SE [place] [address] [place] [facility] HEAD/BRAI 5 MEDICAL NANI N W/[place] [address] [facility] CERVICAL 5 MEDICAL NANI SPINE W/[place] [address] [facility] [place] RUSSEL TRANSVAGI 5 RADIOLOGY RHO NAL COLLECTIO 98455 [place] N VENOUS [address] [place] [address] VENIPUNCT URE COMPREHEN 99446 [place] SIVE [address] [place] [address] [place] [address] [place] AMYLASE [address] [place] [address] BLOOD 89250 [place] COUNT [address] [place] [address] AUTO&AUTO DIFRNTL WBC URINE 24164 [place] [address] [place] [address] VISUAL COLOR CMPRSN METHS URNLS DIP 81361 [place] [address] [place] [address] [facility] HOSPITAL [place] [address] [place] LIPASE [address] [place] [address] [place] [address] [place] ABDOMEN & 5 [facility] PELVIS [facility] W/O CONTRAST MATERIAL NITRIC 66296 INGE INGE OXIDE 5 CHAD CHAD GAS DETERMINA TION BRNCDILAT 31057 INGE INGE RSPSE 5 CHAD [place] SPMTRY PRE&POST- BRNCDILAT ADMN PRESSURIZ 23125 INGE INGE ED/NONPRE 5 CHAD [place] SSURIZED INHALATIO N TREATMENT PREPJ& 33406 INGE INGE ALLERGEN 4 CHAD [place] IMMUNOTHE RAPY 1/NANOELECTRONICS ENGINEER ANTIGEN INITIAL 52881 RACHEL RAMOS OBSERVATI 4 SOY SOY ON CARE/DAY 50 MINUTES RADIOLOGI 00366 MIMI LE C EXAM 4 [facility] CHEST 2 INC INC VIEWS FRONTAL&L ATERAL PROTEIN 97176 [facility] XCPT 4 ELIZABETH ELIZABETH REFRACTOM HOLDINGS HOLDINGS ETRY SERUM PLASMA/WH L BLD SODIUM 27775 [facility] SERUM 4 ELIZABETH ELIZABETH PLASMA OR HOLDINGS HOLDINGS WHOLE BLOOD BILIRUBIN 74153 [facility] TOTAL 4 ELIZABETH ELIZABETH HOLDINGS HOLDINGS CALCIUM 34784 [facility] TOTAL 4 ELIZABETH ELIZABETH HOLDINGS HOLDINGS TRANSFERA 87316 LAB F[facility] SE 4 ELIZABETH ELIZABETH ASPARTATE [place] [address] LAB F[facility] UREA 4 [facility] HOLD[facility] HOLDINGS QUANTITAT MORENITA COLLECTIO 07283 VELIA LEZAMA LASHON N VENOUS 4 CLINIC BLOOD VENIPUNCT URE BLOOD 29091 [facility] COUNT 4 ELIZABETH ELIZABETH COMPLETE HOLDINGS HOLDINGS AUTO&AUTO DIFRNTL WBC ALBUMIN 28296 [facility] SERUM 4 ELIZABETH ELIZABETH PLASMA/WH HOLDINGS HOLDINGS OLE BLOOD GLUCOSE 43086 [facility] QUANTITAT 4 ELIZABETH ELIZABETH MORENITA BLOOD HOLDINGS HOLDINGS XCPT REAGENT STRIP CHLORIDE 08671 [facility] BLD 4 ELIZABETH ELIZABETH HOLDINGS HOLDINGS CREATININ 67285 [facility] E BLOOD 4 ELIZABETH [place] [address] LAB FANT[facility] LAB [facility] PHOSPHATA 4 ELIZABETH ELIZABETH SE HOLDINGS HOLDINGS ALKALINE POTASSIUM 01495 [facility] SERUM 4 ELIZABETH ELIZABETH PLASMA/WH HOLDINGS HOLDINGS OLE BLOOD IAADIADOO 96866 MEANS BUTROS 4 ADULT MARISEL STREPTOCO PRIMARY CCUS CARE CLI GROUP A INJECTION J1040 INTEGRITY RICHARDS, 4 JR. JAM METHYLPRE ORTHOPAED DNISOLONE ICS SPORT ACETATE 80 MG ARTHROCEN 84660 INTEGRITY RICHARDS, TESIS 4 JR. JAM ASPIR&/IN ORTHOPAED J MAJOR ICS SPORT JT/BURSA W/[place] ANY [address]115 [facility] [place] ROJAS JT LOWER 4 RADIOLOGY JOSE EXTREM W/O CONTRAST MATRL RADEX 95024 [facility] SHOULDER 4 MEDICAL NANI COMPLETE IMAGING MINIMUM 2 ASS VIEWS SLINGS A4565 [facility]REG INC. BREG INC. 4 THERAPEUT 87598 VELIA SCHMITZ- IC 4 [facility] PROPHYLAC TIC/DX INJECTION SUBQ/IM DEMO&/KERWIN 17669 VELIA SCHMITZ- L OF PT 4 [facility] UTILIZ AERSL GEN/NEB/I NHLR/IP INJECTION J0696 VELIA SCHMITZ- 4 [facility] CEFTRIAXO NE SODIUM PER 250 MG IPRATROPI J7644 VELIA SCHMITZ- UM 4 [facility] BROMIDE INHAL NON-CP U DOSE PER MG ALBUTEROL J7609 VELIA SCHMITZ- INHAL CP 4 [facility] PROD THRU DME UNIT DOSE 1 MG PRESSURIZ 96352 VELIA SCHMITZ- ED/NONPRE 4 [facility] SSURIZED INHALATIO N TREATMENT INJECTION J1030 VELIA SCHMITZ- 4 [facility] METHYLPRE DNISOLONE ACETATE 40 MG MANUAL 24099 SCHULTE CHR SCHULTE CHR THERAPY 4 TQS 1/> REGIONS EACH 15 MINUTES THERAPEUT 68941 SCHULTE CHR SCHULET CHR IC PX 1/> 4 AREAS EACH 15 MIN EXERCISES THERAPEUT 51035 SCHULTE CHR SCHULTE CHR IC PX 1/> 4 AREAS EACH 15 MIN EXERCISES MANUAL 17929 SCHULTE CHR SCHULTE CHR THERAPY 4 TQS 1/> REGIONS EACH 15 MINUTES MANUAL 28888 SCHULTE CHR SCHULTE CHR THERAPY 4 TQS 1/> REGIONS EACH 15 MINUTES THERAPEUT 62817 SCHULTE CHR SCHULTE CHR IC PX 1/> 4 AREAS EACH 15 MIN EXERCISES THERAPEUT 77571 SCHULTE CHR SCHULTE CHR IC PX 1/> 4 AREAS EACH 15 MIN EXERCISES MANUAL 90601 SCHULTE CHR SCHULTE CHR THERAPY 4 TQS 1/> REGIONS EACH 15 MINUTES MANUAL 29357 SCHULTE CHR SCHULTE CHR THERAPY 4 TQS 1/> REGIONS EACH 15 MINUTES THERAPEUT 33381 SCHULTE CHR SCHULTE CHR IC PX 1/> 4 AREAS EACH 15 MIN EXERCISES THERAPEUT 87845 SCHULTE CHR SCHULTE CHR IC PX 1/> 4 AREAS EACH 15 MIN EXERCISES MANUAL 33813 SCHULTE CHR SCHULTE CHR THERAPY 4 TQS 1/> REGIONS EACH 15 MINUTES PHYSICAL 90150 SCHULTE CHR SCHULTE CHR THERAPY 4 EVALUATIO N RADEX 19381 CHATTHA CHATTHA ANKLE 4 SHANNON SHANNON COMPLETE MINIMUM 3 VIEWS ANKLE L1902 [employer] ORTH 4 [employer]. GAUNT/SIM PREFAB OFF-THE-S HELF RADIOLOGI 76762 CHATTHA KALTHA C 4 SHANNON SHANNON EXAMINATI ON KNEE 1/2 VIEWS COMPRE 08697 [facility] [facility] SET AUDIOMETR 4 PHYSICIAN Y PRACTICE THRESHOLD L EVAL SP RECOGNIJ TYMPANOME 35386 [place] [facility] SET TRY 4 PHYSICIAN PRACTICE L CUL BACT 48285 [employer], [employer], XCPT 4 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 MARKETING MANAGER URINE HATTIE KUHN BLOOD/STO [place] [address] [employer], [employer], SHIGA-LIK 4 [employer] 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 MARKETING MANAGER E TOXIN AHTTIE HATTIE CO HOS CO HOS OVA&MARVA [address] [facility], [employer], ITES 4 [employer] 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 MARKETING MANAGER DIRECT HATTIE KUHN SMEARS CO HOS CO HOS CONCENTRA TION & ID BLOOD 77124 [facility], [facility], COUNT 4 [employer] 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 MARKETING MANAGER COMPLETE HATTIE HATTIE AUTO&AUTO CO HOS CO HOS DIFRNTL WBC LEUKOCYTE 47899 [facility], [facility], ASSMT 4 [employer] 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 MARKETING MANAGER FECAL HATTIE HATTIE QUAL/SEMI CO HOS CO HOS QUANTITAT MORENITA BLOOD 06206 [facility], [facility] INC, OCCULT 4 [employer] 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 MARKETING MANAGER PEROXIDAS HATTIE HATTIE E ACTV CO HOS CO HOS QUAL FECES 1 DETER COMPREHEN 26933 [facility], [facility], SIVE 4 [employer] 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 MARKETING MANAGER METABOLIC HATTIE HATTIE PANEL CO HOS CO HOS SMR PRIM 85714 [facility], [facility], SRC CPLX 4 [employer] 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 MARKETING MANAGER SPEC HATTIE HATTIE STAIN CO HOS CO HOS OVA&MARVA ITS CUL BACT 32098 [facility], [facility], STOOL 4 [employer] 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 MARKETING MANAGER AEROBIC HATTIE HATTIE ADDL CO HOS CO HOS PATHOGENS &ID EA CUL BACT 68233 [facility], [facility], STOOL 4 [employer] 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 MARKETING MANAGER AEROBIC HATTIE HATTIE ISOL CO HOS CO HOS SALMONELL A&SHIGELL IAADIADOO 78398 [facility] 4 [place] [employer] A SPMTRY 15735 INGE INGE W/VC 4 CHAD CHAD EXPIRATOR Y RADHA W/WO MXML VOL VNTJ IAADIADOO 73987 ASTRID RESENDIZ 4 NAN NAN [employer] A PREPJ& 98861 INGE INGE ALLERGEN 4 CHAD CHAD IMMUNOTHE RAPY 1/NANOELECTRONICS ENGINEER ANTIGEN BASIC [address] [facility], [facility], METABOLIC 4 [employer] 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 MARKETING MANAGER PANEL HATTIE HATTIE [place] [address] [facility] [employer], [facility], INFUSION 4 [employer]COMMERCE 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 MARKETING MANAGER THERAPY/P HATTIE HATTIE ROPHYLAXI CO HOS CO HOS S /DX 1ST TO 1 HR BLOOD 52614 [facility], COUNT 4 [employer] 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 MARKETING MANAGER COMPLETE HATTIE HATTIE AUTO&AUTO CO HOS CO HOS DIFRNTL WBC RADIOLOGI 63930 [facility], [facility], C EXAM 4 [employer]COMMERCE 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 MARKETING MANAGER CHEST 2 HATTIE HATTIE VIEWS CO HOS CO HOS FRONTAL&L ATERAL PRESSURIZ 62969 [employer], [employer], ED/NONPRE 4 [employer]COMMERCE 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 MARKETING MANAGER SSURIZED HATTIE KUHN INHALATIO CO HOS CO HOS N TREATMENT THER 24448 [employer], [employer], PROPH/DX 4 [employer]COMMERCE 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 MARKETING MANAGER NJX IV HATTIE KUHN PUSH CO HOS CO HOS SINGLE/1S T SBST/DRUG IIV3 95634 [facility] VACCINE 4 [place] SPLIT VIRUS 0.5 ML DOSAGE IM USE PROF SVCS 31600 INGE INGE ALLG 4 CHAD CHAD IMMNTX X W/PRV ALLGIC XTRCS NJXS PREPJ& 77283 INGE INGE ALLERGEN 4 CHAD CHAD IMMUNOTHE RAPY 1/NANOELECTRONICS ENGINEER ANTIGEN PERCUTANE 44911 INGE INGE OUS TESTS 3 CHAD CHAD W/ALLERGE KIERA EXTRACTS INTRACUTA 97494 INGE INGE NEOUS 3 CHAD CHAD TESTS W/ALLERGE KIERA EXTRACTS SPMTRY 66497 INGE INGE W/VC 3 CHAD CHAD EXPIRATOR Y RADHA W/WO MXML VOL VNTJ URNLS DIP 77802 [facility] 3 [place] STICK/TAB LET RGNT AUTO W/O MICROSCOP Y RADEX 04371 NELLIE BALLARD FOOT 3 EIDER LASHON EIDER LASHON COMPLETE MINIMUM 3 VIEWS RADEX 19637 NELLIE BALLARD ANKLE 3 EIDER LASHON E[facility] COMPLETE MINIMUM 3 VIEWS OPHTH 22244 [facility] MEDICAL 3 GRE GRE XM&EVAL COMPRE NEW PT 1/> VST SPMTRY 48217 INGE INGE W/VC 3 CHAD CHAD EXPIRATOR Y RADHA W/WO MXML VOL VNTJ DETERMINA 44195 [facility] TION 3 GRE GRE REFRACTIV E STATE RADEX 66212 [employer], [employer], FOOT 3 ECOMMERCE 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 MARKETING MANAGER COMPLETE HATTIE KUHN MINIMUM 3 CO HOS CO HOS VIEWS BRNCDILAT 21369 INGE INGE RSPSE 3 CHAD BONILLA SPMTRY PRE&POST- BRNCDILAT ADMN SPACR A4627 MT MED MT MED BAG/RESRV 3 EQUIPMENT EQUIPMENT OR W/WO INC INC MASK W/METRD DOSE INHAL LEVEL III 60418 TANIA MARIN, SURG 3 JR EDW JR EDW PATHOLOGY GROSS&JANA ROSCOPIC EXAM LAPAROSCO 40058 MAKAYLA JR MAKAYLA JR PY SURG 3 KASSANDRA KASSANDRA CHOLECYST ECTOMY PRESSURIZ 96905 [facility] ED/NONPRE 3 [facility] INHALATIO N TREATMENT ANES 76564 SIENNA ANT SIENNA ANT INTRAPERI 3 TONEAL UPPER ABDOMEN W/LAPS NOS URINE 50615 [facility] 3 [facility] VISUAL COLOR CMPRSN METHS COLLECTIO 93867 [facility] N VENOUS 3 [facility] VENIPUNCT URE COMPREHEN 15987 [facility] PANEL BLOOD 48340 [facility] COUNT 3 [facility] AUTO&AUTO DIFRNTL WBC HEPATOBIL 94932 RUSSEL RUSSEL SYST 3 RHO RHO IMAG INC GB W/[place] [address] [employer], [employer], AMYLASE 3 ECOMMERCE 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 MARKETING MANAGER HATTIE HATTIE CO HOS CO HOS COMPREHEN 41369 [employer], [employer], SIVE 3 ECOMMERCE 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 MARKETING 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 METABOLIC HATTIE HATTIE PANEL CO HOS CO HOS BLOOD 02275 [employer], [employer], COUNT 3 ECOMMERCE 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 MARKETING MANAGER COMPLETE HATTIE HATTIE AUTO&[place] [address] CHAWLA CHAWLA ABDOMINAL 3 FERMÍN FERMÍN REAL TIME W/IMAGE LIMITED NEBULIZER E0570 DANGELO PIERSON WITH 3 HOME HOME COMPRESSO MEDICAL MEDICAL R EQUIPME EQUIPME ADMN SET A7003 YOUR YOUR SM VOL 3 PHARMACY PHARMACY NONFILTR [facility] PNEUMAT NEBULIZR DISPBL RADIOLOGI 41563 NELLIE BALLARD C EXAM 3 JET OATES CHEST 2 VIEWS FRONTAL&L ATERAL RADIOLOGI 54029 NELLIE BALLARD C EXAM 3 JET OATES CHEST 2 VIEWS FRONTAL&L ATERAL INJECTION J2250 [facility] 3 Y Y MIDAZOLAM [facility] HCL PER 1 MG EXC TUMOR 62258 ADLER ADLER SOFT 3 TONYA TONYA TISS NECK/THOR AX SUBFASCIA L <5CM ANES 75281 HOWARD JANA HOWARD JANA INTEG 3 MUSC & NRV HEAD NECK&POST ERIOR TRUNK BX/EXC 53145 [facility] LYMPH 3 Y Y NODE OPEN [facility] DEEP CERVICAL NODE INJECTION J1100 [facility] 3 Y Y DEXAMETHO [facility] SONE SODIUM PHOSPHATE 1 MG RINGERS J7120 [facility] LACTATE 3 Y Y INFUSION [facility] UP TO 1000 [place] [address] [facility] SURG 3 Y Y PATHOLOGY [facility] GROSS&JANA ROSCOPIC EXAM INJECTION J2405 [facility] 3 Y Y [facility] [place] HCL PER 1 MG URINE 30430 [facility] 3 Y Y TEST [facility] VISUAL COLOR CMPRSN METHS INJECTION J3010 [facility] FENTANYL 3 Y Y CITRATE [facility] 0.1 MG INFUSION J7030 [facility] NORMAL 3 Y Y SALINE [facility] SOLUTION 1000 CC GONADOTRO [address] 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 MARKETING MANAGER NON-VASC HATTIE HATTIE CO HOS CO HOS REAL-TIME IMG COMPL US SOFT 88267 [facility] HAGENSCHN TISSUE 3 EIDER LASHON EIDER LASHON HEAD & [place] [address] [employer], THYROXINE 3 ECOMMERCE 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 MARKETING MANAGER TOTAL HATTIE HATTIE CO HOS CO HOS COMPREHEN 43778 [employer], [employer], SIVE 3 ECOMMERCE 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 MARKETING MANAGER METABOLIC HATTIE HATT[place] [address] [employer], FREE 3 ECOMMERCE 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 MARKETING MANAGER THYROXINE HATT[place] [address] [employer], INSULIN 3 ECOMMERCE 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 MARKETING MANAGER TOTAL [place]ATT[place] [address] [employer], [employer], THYROID 3 ECOMMERCE 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 MARKETING MANAGER STIMULATI HATTIE HATTIE [place] [address] [facility] CERVICAL 2 ANIBAL SPINE W/O RADIOLOGY CONTRAST ASSOCIAT MATERIAL AMBULANCE A0429 [facility] SERVICE 2 AM[facility]LETT AM[facility] BLS & & EMERGENCY AMBULANC AMBULANC TRANSPORT GROUND A0425 [facility] MILEAGE 2 [facility] PER & & STATUTE AMBULANC AMBULANC MILE COLONOSCO 02954 [facility] PY 2 Y Y W/BIOPSY [facility] SINGLE/MU LTIPLE RINGERS J7120 [facility] LACTATE 2 Y Y INFUSION [facility] UP TO 1000 CC ANES 59856 [place] [facility] MEDICAL ALB INTESTINE SERVICES ENDOSCOPY DISTAL DUODENUM EGD 05878 [facility] TRANSORAL 2 Y Y BIOPSY [facility] SINGLE/MU LTIPLE INJECTION J2250 [facility] 2 Y Y MIDAZOLAM [facility] HCL PER 1 MG CUL BACT 85147 [facility] PIPPA 2 Y Y ANAERC [facility] ISOL XCPT UR BLOOD/[place] [address] [facility] SURG 2 Y Y PATHOLOGY [facility] GROSS&JANA ROSCOPIC EXAM INJECTION J3010 [facility] FENT[facility] 2 Y Y CITRATE [facility] 0.1 [place] [address] [facility], 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, [facility], S FECES 2 ECOMMERCE 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 MARKETING MANAGER QUALITATI HATTIE [place] [address] [facility], [facility], MULT STEP 2 ECOMMERCE 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 MARKETING MANAGER METHOD HATTIE KUHN NOS EACH CO HOS CO HOS ORGANISM RADEX [address] [facility], [facility], FOOT 2 ECOMMERCE 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 MARKETING MANAGER COMPLETE HATTIE KUHN MINIMUM 3 CO HOS CO HOS VIEWS COMPREHEN 68037 [facility] SIVE 2 Y Y [facility] [place] [address] [facility] THYROID 2 Y Y STIMULGOOD [facility] NG HORMONE TSH C-REACTIV 23940 [facility] E PROTEIN 2 Y Y [facility] BLOOD 35579 [facility] COUNT 2 Y [facility] [place] [address] [facility] GAMMAGLOB 2 Y Y [facility] IGD IGG IGM EACH IMMUNOASS 66781 [facility] AY 2 Y Y ANALYTE [facility] QUAL/SEMI QUAL MULTIPLE STEP SIMPLE 67222 HATTIE BROOKS REPAIR 2 CO DIOGENES F/E/E/N/L HOSPITAL /M 2.5CM/< RADEX 41415 [facility] SPINE [address] [facility] THORACIC RADIOLOGY 2 VIEWS ASSOCIAT THERAPEUT [address] [facility] [employer], [facility], IC 2 ECOMMERCE 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 MARKETING MANAGER PROPHYLAC HATTIE HATTIE TIC/DX CO HOS CO HOS INJECTION SUBQ/IM INJECTION J[address] [facility], [facility], 2 ECOMMERCE 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 MARKETING MANAGER LIDOCAINE HATTIE HATTIE HCL CO HOS CO HOS INTRAVENO US INFUS 10 MG GONADOTRO [address] [facility], [facility], PIN 2 ECOMMERCE 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 MARKETING MANAGER CHORIONIC HATTIE HATTIE CO HOS CO HOS QUALITATI VE SIMPLE 85910 [employer], [employer], REPAIR 2 ECOMMERCE 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 MARKETING MANAGER F/E/E/N/L HATTIE KUHN /M CO HOS CO HOS 2.5CM/< RADEX 04841 [facility] SPINE 2 EIDER LASHON LUMBOSACR RADIOLOGY AL 2/[place] [address] CANISTEO CARRENO CERVICAL 2 ANIBAL SPINE W/O RADIOLOGY CONTRAST ASSOCIAT MATERIAL INJECTION J1885 [employer], [employer], 2 ECOMMERCE 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 MARKETING MANAGER KETOROLAC HATTIE KUHN CO HOS CO HOS TROMETHAM INE [place] 15 [place] [address] MD DIEGO CORTEZ MD TRANSVAGI 2 STEPHEN STEPHEN NAL HEPATOBIL 82027 [facility] [place] [facility] SYST 2 RADIOLOGY IMAG INC GB W/PHARMA INTERVENJ BASIC 47847 [facility] METABOLIC 2 [facility] CALCIUM TOTAL URINE 86117 [facility] 2 [facility] VISUAL COLOR CMPRSN METHS COLLECTIO 58714 KASI DANVERS N VENOUS 2 [facility] VENIPUNCT URE THER 63228 [facility] PROPH/DX 2 [facility] PUSH SINGLE/1S T SBST/[place] [address] [facility] RADHA MAT ABDOMEN & 2 RADIOLOGY PELVIS W/O CONTRAST MATERIAL BLOOD 36918 [facility] 2 [facility] AUTO&AUTO DIFRNTL WBC URNLS DIP 89645 [facility] [address] [facility] STICK/TAB [facility] LET REAGENT AUTO MICROSCOP Y URINLS 94071 JEFE MAYBERRY DARRION DIP 2 STICK/TAB LET REAGNT NON-AUTO MICRSCPY CYTP C/V 95347 PATHOLOGY PICKLESIM AUTO THIN 2 & ER JR RADAMES LYR CYTOLOGY PREPJ SCR LAB MNL RESCR PHYS URINLS 84774 JEFE [facility] DARRION DIP 2 STICK/TAB LET REAGNT NON-AUTO MICRSCPY IAADIADOO 79603 JEFE [facility] DARRION 1 STREPTOCO CCUS GROUP A COLLECTIO 86287 JEFE [facility] DARRION N VENOUS 1 BLOOD VENIPUNCT URE GENERAL 62901 [facility] 1 AMERIC [place] [address] [facility] THYROXINE 1 AMERIC AMERIC TOTAL HOLDINGS HOLDING THYROID 89150 [facility] HORM 1 AMERIC AMERIC UPTK/THYR HOLDINGS HOLDING OID HORMONE BINDING RATIO RADEX 86778 [facility] ELBOW 1 FERMÍN COMPLETE RADIOLOGY MINIMUM 3 [place] [address] MD DIEGO CORTEZ MD TRANSVAGI 1 [place] [address] [facility] LIPASE 1 Y Y [facility] THER 26044 [facility] PROPH/DX 1 Y Y NJX IV [facility] PUSH SINGLE/1S T SBST/DRUG RINGERS J7120 [facility] LACTATE 1 Y Y INFUSION [facility] UP TO 1000 CC BLOOD 42241 [facility] COUNT 1 Y Y COMPLETE [facility] AUTO&AUTO DIFRNTL WBC THERAPEUT 19455 [facility] IC 1 Y Y INJECTION [facility] IV PUSH EACH NEW DRUG INJECTION J2270 [facility] MORPHINE 1 Y Y SULFATE [facility] UP [place] 10 [place] [address] [facility] INFUSION 1 Y Y HYDRATION [facility] EACH ADDITIONA L HOUR COMPREHEN 08629 [facility] SIVE 1 Y Y METABOLIC [facility] PANEL URNLS DIP 46019 [facility] 1 Y Y STICK/TAB [facility] LET RGNT AUTO W/O MICROSCOP Y INJECTION J2405 [facility] 1 Y Y ONDANSETR [facility] ON HCL PER 1 MG US PELVIC 95089 [place] ANNE 1 MEDICAL [place] NONOBSTET SERV FERMÍN FOUNDATIO REAL-TIME IMAGE COMPLETE [facility] 94158 [facility] V[facility] DISCHARGE 1 OSI OSI DAY MANAGEMEN T > 30 MIN INFUSION J7030 [facility] NORMAL 1 Y Y SALINE [facility] SOLUTION 1000 CC DUP-SCAN 23822 [facility] ARTL RADHA 1 Y Y ABDL/PEL/ HOSPITAL HOSPITAL SCROT&/RP R ORGN COM URINE 40950 HATTIE KUHN 1 CO CO TEST [facility] VISUAL COLOR CMPRSN METHS SBSQ 75086 [facility] 1 DREAD DREAD CARE/DAY [address] [facility] 1 OSI OSI CARE/DAY 70 MINUTES INJECTION J2550 HATTIE KUHN 1 CO CO AULTMAN [facility] INE HCL UP [place] 50 [place] [address] HATTIE KUHN INFUSION 1 CO CO THERAPY/P [facility] ROPHYLAXI S /DX 1ST TO 1 HR BLOOD 65937 HATTIE KUHN COUNT 1 CO CO COMPLETE [facility] AUTO&AUTO DIFRNTL WBC URNLS DIP 16627 HATTIE KUHN 1 CO CO STICK/TAB HOSPITAL HOSPITAL LET REAGENT AUTO MICROSCOP Y BASIC 53484 HATTIE KUHN METABOLIC 1 CO CO PANEL [facility] G0378 HATTIE KUHN OBSERVATI 1 CO CO ON HOSPITAL HOSPITAL SERVICE PER HOUR URINE 80461 [facility] 1 [facility] VISUAL COLOR CMPRSN METHS BLOOD 72236 [facility] COUNT 1 [facility] AUTO&AUTO DIFRNTL WBC URNLS DIP [address] [facility] [address] [facility] STICK/TAB HOSPITAL HOSP[place] [address] [facility] HIEN HOFFMAN ABDOMEN & 1 RADIOLOGY ANIBAL PELVIS W/CONTRAS T MATERIAL COLLECTIO 95568 [facility] N VENOUS 1 [facility] VENIPUNCT URE COMPREHEN 83533 [facility] SIVE 1 [facility] PANEL THER 49413 [facility] PROPH/DX 1 [facility] NJX IV [facility] PUSH SINGLE/1S T SBST/DRUG RADEX 53707 HATTIE KUHN HAND 1 CO CO MINIMUM 3 HOSPITAL HOSPITAL VIEWS APPLICATI 43317 HATTIE KUHN ON FINGER 1 CO CO SPLINT [facility] STATIC IAADIADOO 69685 [facility] MEDICAL STREPTOCO CLINIC CCUS GROUP A PRESSURIZ 26065 HATTIE KUHN ED/NONPRE 0 CO CO SSURIZED [facility] INHALATIO N TREATMENT HOSPITAL 57624 [facility] DISCHARGE 0 DREAD DREAD DAY MANAGEMEN T 30 MIN/< SMR PRIM 42253 HATTIE KUHN SRC 0 CO CO GRAM/GIEM [facility] SA STAIN BCT FUNGI/DARELL L CUL BACT 89798 HATTIE KUHN XCPT 0 CO CO URINE [facility] BLOOD/STO OL AEROBIC ISOL BLOOD 10437 HATTIE KUHN COUNT 0 CO CO SMEAR [facility] MCRSCP W/MNL DIFRNTL WBC COUNT URNLS DIP 51049 HATTIE KUHN 0 CO CO STICK/TAB [facility] LET REAGENT AUTO MICROSCOP Y ELECTROLY 29706 HATTIE KUHN TE PANEL 0 CO CO [facility] US PELVIC 06900 HATTIE KUHN 0 CO CO NONOBSTET [facility] FERMÍN REAL-TIME IMAGE COMPLETE PRESSURIZ 36658 HATTIE KUHN ED/NONPRE 0 CO CO SSURIZED [facility] INHALATIO N TREATMENT INITIAL 42208 [facility] 0 DREAD DREAD CARE/DAY 50 MINUTES COLLECTIO 32296 HATTIE Jiménez VENOUS 0 CO CO BLOOD [facility] G0378 HATTIE KUHN OBSERVATI 0 CO CO ON HOSPITAL HOSPITAL SERVICE PER HOUR ANTIBODY 41264 HATTIE KUHN INFLUENZA 0 CO CO VIRUS [facility] BASIC 76947 HATTIE KUHN METABOLIC 0 CO CO PANEL [facility] CALCIUM TOTAL CUL BACT 88038 HATTIE KUHN XCPT 0 CO CO URINE [facility] BLOOD/STO OL AEROBIC ISOL PRESSURIZ 71092 HATTIE KUHN ED/NONPRE 0 CO CO SSURIZED HOSPITAL H[place] [address] HATTIE KUHN STREPTOCO 0 CO CO CCUS [facility] GROUP A COLLECTIO 56345 HATTIE KUHN N VENOUS 0 CO CO BLOOD [facility] VENIPUNCT URE URNLS DIP 68915 HATTIE KUHN 0 CO CO STICK/TAB [facility] [place] [address] HATTIE KUHN INFUSION 0 CO CO THERAPY/P [facility] ROPHYLAXI S /DX 1ST TO 1 HR GONADOTRO 59281 HATTIE KUHN PIN 0 CO CO CHORIONIC [facility] QUALITATI VE RADIOLOGI 24013 HATTIE KUHN C EXAM 0 CO CO CHEST 2 [facility] VIEWS FRONTAL&L ATERAL BLOOD 29091 HATTIE KUHN COUNT 0 CO CO SMEAR [facility] MCRSCP W/MNL DIFRNTL WBC COUNT RADEX 53651 HATTIE KUHN HAND 0 CO CO MINIMUM 3 [facility] VIEWS URINLS 15426 [facility], DIP 0 MEDICAL DINAH R STICK/TAB CLINIC LET REAGNT NON-AUTO MICRSCPY BASIC 79238 [facility] METABOLIC 0 [facility] CALCIUM TOTAL BLOOD 11184 [facility] COUNT 0 [facility] AUTO&[place] [address] [facility] ABDOMEN 0 [facility] T [place] [address] PELVIS 04133 [facility] 0 [facility] T MATERIAL COLLECTIO 84535 [facility] N VENOUS 0 [facility] [place] [address] [facility] THYROID 0 [facility] [place] [address] [facility] INSULIN 0 [facility] TOTAL DEHYDROEP 67265 [facility] IANDROSTE 0 [facility] JEWEL-SULF [place] 03-18-201 59517 [facility] PROLACTIN 0 [facility] GLUCOSE 66762 [facility] QUANTITAT 0 [facility] MORENITA BLOOD XCPT REAGENT STRIP URINLS 03556 REJI ALBARADO, DIP 0 MEDICAL DINAH R STICK/TAB CLINIC LET REAGNT NON-AUTO MICRSCPY CULTURE 58504 [facility] BACTERIAL 0 AMERIC AMERIC HOLDING HOLDING QUANTTATI VE COLONY COUNT URINE URINLS 56439 REJI YOUNG, DIP 0 MEDICAL DINAH R STICK/TAB CLINIC LET REAGNT NON-AUTO MICRSCPY URINE 09841 REJI ALBARADO, 0 MEDICAL DINAH R TEST CLINIC VISUAL COLOR CMPRSN METHS THERAPEUT 91593 [facility], IC PX 1/> 9 VISION ZEINAB S AREAS ANDLEARNI EACH 15 NG MIN EXERCISES ORTHOPTIC 91811 [facility], 9 VISION ZEINAB S &/PLEOPTI ANDLEARNI C NG TRAINING W/[place] [address] [facility], 1/> AREAS 9 VISION ZEINAB S EACH 15 ANDLEARNI MIN NG NEUROMUSC REEDUCA ORTHOPTIC 66665 [facility], 9 VISION ZEINAB S &/PLEOPTI ANDLEARNI C NG TRAINING W/[place] [address] [facility], 1/> AREAS 9 VISION ZEINAB S EACH 15 ANDLEARNI MIN NG NEUROMUSC REEDUCA THERAPEUT 26846 [facility], IC PX 1/> 9 VISION ZEINAB S AREAS ANDLEARNI EACH 15 NG MIN EXERCISES THERAPEUT 29559 [facility], IC PX 1/> 9 VISION ZEINAB S AREAS ANDLEARNI EACH 15 [place] [address] [facility], 1/> AREAS 9 VISION ZEINAB S EACH 15 ANDLEARNI MIN NG NEUROMUSC REEDUCA ORTHOPTIC 35586 [facility], 9 VISION ZEINAB S &/PLEOPTI ANDLEARNI C NG TRAINING W/[place] [address] VJ CAINMAN, ABDOMINAL 9 ZEINAB S REAL RADIOLOGY TIME W/IMAGE ASSOCIATE DOCUMENTA S PSC TION RADEX 88124 [facility], SHOULDER 9 ZEINAB S COMPLETE RADIOLOGY MINIMUM 2 VIEWS ASSOCIATE S PSC RADEX 15168 CANISTEO DENTON, ELBOW 9 ZEINAB S COMPLETE RADIOLOGY MINIMUM 3 VIEWS ASSOCIATE S PSC RADEX HIP 99265 HATTIE KUHN 9 CO CO [facility] L COMPLETE MINIMUM 2 VIEWS URNLS DIP 03786 HATTIE KUHN 9 CO CO STICK/TAB [facility] LET REAGENT AUTO MICROSCOP Y RADIOLOGI 80802 CANISTEO CHAWLA, C 9 ZEINAB S EXAMINATI RADIOLOGY ON PELVIS 1/2 ASSOCIATE VIEWS S PSC CULTURE 62903 HATTIE KUHN BACTERIAL 9 [facility] QUANTTATI VE COLONY COUNT URINE THERAPEUT 55129 CHILDRENS [place]RAEBE, IC PX 1/> 9 VISION ZEINAB S AREAS ANDLEARNI EACH 15 [place] [address] CHILDRENS GRAEBE, 1/> AREAS 9 VISION ZEINAB S EACH 15 ANDLEARNI MIN NG NEUROMUSC REEDUCA ORTHOPTIC 32655 CHILDRENS GRAEBE, 9 VISION ZIENAB S &/PLEOPTI ANDLEARNI C NG TRAINING W/MEDICAL DIRECTJ ORTHOPTIC 40251 CHILDRENS GRAEBE, 9 VISION ZEINAB S &/PLEOPTI ANDLEARNI C NG TRAINING W/MEDICAL DIRECTJ THERAPEUT 76120 SAMMIES SYLVIEEBE, IC PX 1/> 9 VISION ZEINAB S AREAS ANDLEARNI EACH 15 [place] [address] CHILDRENS GRAEBE, 1/> AREAS 9 VISION ZEINAB S EACH 15 ANDLEARNI [place] [address] CHILDRENS GRAEBE, 1/> AREAS 9 VISION ZEINAB S EACH 15 ANDLEARNI MIN NG NEUROMUSC REEDUCA THERAPEUT 98630 CHILDRENS GRAEBE, IC PX 1/> 9 VISION ZEINAB S AREAS ANDLEARNI EACH 15 NG MIN EXERCISES ORTHOPTIC 58927 CHILDRENS GRAEBE, 9 VISION ZEINAB S &/PLEOPTI ANDLEARNI C NG TRAINING W/MEDICAL DIRECTJ SENSORMOT 21876 CHILDRENS [place]RA[place], [place] XM 9 VISION ZEINAB S W/NANOELECTRONICS ENGINEER ANDLEARNI HILDA NG OCULAR DEVIJ W/I&R SPX FITTING 68484 FAMILY FALCON SPECTACLE 9 [facility] ZEINAB [place] S XCPT ASSOCIATE APHAKIA S MONOFOCAL 1 VISN V2103 FAMILY FALCON PLANO 9 [facility] ZEINAB S TO+/-4.00 ASSOCIATE D SPHER S 0.12-2.00 D CYL EA FRAMES V2020 [facility]ILY [facility], PURCHASES 9 [facility]ARE ZEINAB S ASSOCIATE S DETERMINA 42343 FAMILY FALCON TION 9 [facility]ARE ZEINAB S REFRACTIV ASSOCIATE E STATE S OPHTH 32440 FAMILY FALCON MEDICAL 9 [facility] ZEINAB S XM&EVAL ASSOCIATE COMPRE S NEW PT 1/> [place] [address] HATTIE KUHN STREPTOCO 9 [facility] A CUL BACT 85870 HATTIE KUHN XCPT 9 [facility] URINE [facility] BLOOD/STO OL AEROBIC ISOL ANTIBODY 79327 HATTIE KUHN INFLUENZA 9 [facility] CUL BACT 53896 HATTIE KUHN XCPT 9 [facility][1] BLOOD/[place] [address] HATTIE KUHN STREPTOCO 9 [facility] [place] [address] HATTIE KUHN STREPTOCO 9 [facility] A CUL BACT 24174 HATTIE KUHN XCPT 9 [facility] URINE [facility] BLOOD/STO OL AEROBIC ISOL THER 11898 HATTIE KUHN PROPH/DX 8 [facility] SUBQ/IM RADIOLOGI 51464 Alex GUTHRIE S EXAMINATI RADIOLOGY ON ANKLE 2 VIEWS ASSOCIATE S PSC RADIOLOGI 39306 Alex GUTHRIE S EXAMINATI RADIOLOGY ON FOOT 2 VIEWS ASSOCIATE S PSC RADEX 19699 HATTIE KUHN ANKLE 8 [facility] MINIMUM 3 VIEWS RADEX 85882 HATTIE KUHN FOOT 8 CO [facility] MINIMUM 3 VIEWS RADIOLOGI 94053 HATTIE KUHN C 8 CO [facility] ON KNEE 3 VIEWS RADIOLOGI 30501 Alex GUTHRIE 8 [facility]/2 VIEWS ASSOCIATE S PSC DEMO&/KERWIN 22589 INGE ALCAZAR, L OF PT 8 CHAD B CHAD B UTILIZ AERSL GEN/NEB/I NHLR/IP PERCUTANE 53603 INGEINGE, OUS TESTS 8 CHDA B CHAD B W/ALLERGE KIERA EXTRACTS INTRACUTA 04593 INGE, INGE, NEOUS 8 CHAD B CHAD B TESTS W/ALLERGE KIERA EXTRACTS BRNCDILAT 37173 INGE ALCAZAR, RSPSE 8 CHAD B CHAD B SPMTRY PRE&POST- BRNCDILAT [facility] 30560 [facility] [place] DISCHAR[facility] 7 Y OF [facility] DAY [place] MANA[place] PEDIA T 30 MIN/< SBSQ 47331 [facility] 7 Y OF [facility] CARE/DAY [place] 25 PEDIA MINUTES SBSQ 89465 [facility] 7 Y OF [facility] CARE/DAY [place] 25 PEDIA MINUTES INITIAL 87381 [facility] 7 Y OF CARE/DAY [place] 70 PEDIA MINUTES ECG 72480 [facility] ROUTINE 7 Y OF ECG [place] W/LEAST PEDIA 12 LDS W/I&R Encounters Encounter Start End Date Code Location Performer Type Date OFFICE 11666 [facility] 7 7 ASTHMA III T NEW 45 ASSOC OF MINUTES TH OFFICE 82954 VELIA SCHMITZ-SHANON OUTPATIEN 7 7 CLINIC SE T VISIT 15 MINUTES HOSPITAL [facility] - 7 7 HEALTH OUTPATIEN CORYDON T PERIODIC 89905 [facility] 7 [facility] E MED EST TH DEPT HLTH DEPT PATIENT KIERA KIERA 18-39 YRS [facility] - [facility] [place] [facility] T OFF[facility] 51624 [facility] 7 7 [facility] T VISIT [facility] DEPT [facility] DEPT 10 KIERA KIERA MINUTES OFFICE 75599 NONDENOMINATIONAL [facility] 7 7 HEALTH T NEW 60 MEDICAL MINUTES [facility] NONDENOMINATIONAL [facility] 7 7 [facility] 77685 [facility] 7 7 EMERGENCY VISIT PHYS PSC HIGH SEVERITY& THREAT FUNCJ OFFICE 23592 NONA NONA [facility] 7 7 T NEW 20 MINUTES OFFICE 17996 KASI VILLAGOMEZ [facility] 7 7 PHYSICIAN T VISIT PRACTICE 15 L MINUTES OFFICE 00469 VELIA BARNETT [facility] 7 7 CLINIC SE T VISIT 15 MINUTES EMERGENCY 77302 CLEMENT MUNIZ 7 7 PHYSICIAN DEPARTMEN S, [facility] T VISIT HIGH/URGE NT SEVERITY HOSPITAL [facility] - 7 7 [facility] INC T EMERGENCY 79769 [facility] 7 7 [facility]PART[facility] INC T VISIT LOW/MODER SEVERITY OFFICE 21189 [facility] 7 7 [facility] T VISIT [facility] DEPT [facility] DEPT 10 KIERA KIERA MINUTES OFFICE 98198 VELIA LEZAMA [facility] 7 7 CLINIC T VISIT 15 MINUTES [facility] [place] - 6 6 [facility] T EMERGENCY 24968 [facility] 6 6 [facility] T VISIT MODERATE SEVERITY EMERGENCY 53309 [facility] 6 6 DARRIN PAT DEPARTMEN EMERGENCY T VISIT PHYS HIGH/URGE NT SEVERITY OFFICE 38415 [facility] 6 6 [facility] T VISIT 5 HLTH DEPT HLTH DEPT MINUTES KIERA KIERA OFFICE 48077 [facility] 6 6 [facility] T VISIT HLTH DEPT HLTH DEPT 10 KIERA KIERA MINUTES OFFICE 97202 VELIA SCHMITZ[facility]SHANON OUTPATIEN 6 6 [facility] 15 [facility]ES [facility] [place] [facility] 6 6 [facility] T EMERGENCY 04059 [place] 6 6 [facility] T VISIT LOW/MODER SEVERITY EMERGENCY 44929 [facility] 6 6 DARRIN DEPARTMEN EMERGENCY T VISIT PHYS MODERATE SEVERITY EMERGENCY 89414 [facility] 6 6 DARRIN NANI DEPARTMEN EMERGENCY T VISIT PHYS HIGH/URGE NT SEVERITY EMERGENCY 04322 [place] 6 6 [facility] T VISIT MODERATE SEVERITY [facility] [place] - 6 6 [facility] T PERIODIC 37777 [facility] 6 6 [facility] E MED EST HLTH DEPT HLTH DEPT PATIENT KIERA KIERA 18-39 YRS [facility] [place] - 6 6 [facility] T EMERGENCY 65501 [place] 6 6 [facility] T VISIT MODERATE SEVERITY EMERGENCY 69500 [facility] DE[facility] EMERGENC[facility] T VISIT PHYS HIGH/URGE NT SEVERITY OFFICE 22994 BLACK DELCID [facility] 6 6 DIGESTIVE CEC T VISIT CARE 25 CENTER MINUTES HOSPITAL [place] - 6 6 [facility] T OFFICE 72918 VELIA SCHMITZ- OUTPATIEN 6 6 CLINIC SE SARAH T VISIT 25 MINUTES OFFICE 26385 [facility] 6 6 [facility] T VISIT HLTH DEPT [facility] DEPT 10 KIERA KIERA MINUTES OFFICE 91198 VELIA OATES OUTPATIEN 6 6 CLINIC T VISIT 15 MINUTES OFFICE 44309 BLACK DELCID OUTPATIEN 6 6 DIGESTIVE CEC T NEW 45 CARE MINUTES CENTER OFFICE 10893 VELIA BARNETT OUTPATIEN 6 6 CLINIC SE [facility] T VISIT 15 MINUTES OFFICE 93618 HATTIE RESENDIZ OUTPATIEN 6 6 [facility] T VISIT URGENT 25 TREAT MINUTES OFFICE 52967 [facility] 6 [facility] T VISIT HLTH DEPT [facility] DEPT 10 KIERA KIERA MINUTES OFFICE 17845 HATTIE RESENDIZ OUTPATIEN 6 6 [facility] T VISIT URGENT 25 TREAT MINUTES EMERGENCY 54202 VORCASEYOR VORCASEYOR [address] [facility] DEPARTMEN T VISIT HIGH/URGE NT SEVERITY OFFICE 31694 HATTIE RESENDIZ OUTPATIEN 5 5 [facility] T VISIT URGENT 25 TREAT MINUTES OFFICE 60692 [facility] 5 5 [facility] T VISIT HLTH DEPT [facility] DEPT 10 KIERA KIERA MINUTES OFFICE 26146 EAR, NOSE SHASHY CONSULTAT 5 5 AND MIRANDA ION THROAT NEW/ESTAB SPECIAL PATIENT 60 MIN OFFICE 54341 HATTIE RESENDIZ OUTPATIEN 5 5 [facility] T VISIT URGENT 25 TREAT MINUTES EMERGENCY 10576 VORKPOR VORKPOR [address] [facility] DEPARTMEN T VISIT HIGH/URGE NT SEVERITY INITIAL 32076 [facility] 5 [facility] E HLTH DEPT [facility] DEPT MEDICINE KIERA KIERA NEW PT AGE 18-39YRS [facility] MIMI - 5 5 [facility] OUTPATIEN [facility] T EMERGENCY 94997 MIMI 5 [address] [facility] T VISIT LOW/MODER SEVERITY EMERGENCY 30028 CLEMENT HERNADEZ 5 5 PHYSICIAN [facility] T VISIT MODERATE SEVERITY [facility] [place] - 5 5 [facility] T EMERGENCY 66020 [facility] 5 5 [facility] T VISIT HIGH/URGE NT SEVERITY EMERGENCY 09845 [facility] DEPT 5 5 EDW EDW VISIT HIGH SEVERITY& THREAT [facility] [place] - 5 5 [facility] T OFFICE 66733 VELIA SCHMITZ-SHANON OUTPATIEN 5 5 CLINIC [facility] T VISIT 15 MINUTES [facility] [place] - 5 5 [facility] T EMERGENCY 78385 [facility] 5 5 [facility] T VISIT HIGH/URGE NT SEVERITY OFFICE 39515 VELIA SCHMITZ-SHANON OUTPATIEN 5 5 CLINIC [facility] T VISIT 15 MINUTES OFFICE 71385 INGE INGE [facility] 5 5 CHAD CHAD T VISIT 25 MINUTES OFFICE 55041 VELIA OATES OUTPATIEN 4 4 CLINIC T VISIT 15 MINUTES EMERGENCY 77164 SESAR HERNADEZ DEPT 4 4 VISIT HIGH SEVERITY& [facility]AT [facility] OFFICE 40406 MEANS BUTROS OUTPATIEN 4 4 ADULT MARISEL T VISIT PRIMARY 15 CARE CLI MINUTES HOSPITAL MIMI - 4 4 [facility] INC T OFFICE 70883 VELIA OATES OUTPATIEN 4 4 CLINIC T VISIT 15 MINUTES OFFICE 39208 MEANS BUTROS OUTPATIEN 4 4 ADULT MARISEL T VISIT PRIMARY 15 CARE CLI MINUTES OFFICE 12662 VELIA OATES OUTPATIEN 4 4 CLINIC T VISIT 15 MINUTES OFFICE 91619 MEANS BUTROS OUTPATIEN 4 4 ADULT MARISEL T VISIT PRIMARY 15 CARE CLI MINUTES EMERGENCY 12583 MIMI 4 4 [facility] DEPARTMEN INC T VISIT LOW/MODER SEVERITY HOSPITAL MIMI - 4 4 [facility] OUTPATIEN INC T EMERGENCY 63224 DEANGELO MUNIZ 4 4 [facility] T VISIT MODERATE SEVERITY OFFICE 80569 VELIA SCHMITZ- OUTPATIEN 4 4 CLINIC [facility] T VISIT 15 MINUTES OFFICE 63203 VELIA SCHMITZ-SHANON OUTPATIEN 4 4 CLINIC [facility] T VISIT 15 MINUTES OFFICE 58698 MEANS BUTROS OUTPATIEN 4 4 ADULT MARISEL T VISIT PRIMARY 15 CARE CLI MINUTES OFFICE 30898 INTEGRITY RICHARDS, OUTPATIEN 4 4 JR. JAM T VISIT ORTHOPAED 15 ICS SPORT MINUTES [facility] 4 [facility] T EMERGENCY 41172 FLAVIO MUNIZ 4 4 JANA JANA DEPARTMEN T VISIT MODERATE SEVERITY OFFICE 65083 [facility] CHATTHA OUTPATIEN 4 4 SHANNON T VISIT ORTHOPAED 15 ICS SPORT MINUTES OFFICE 23207 VELIA SCHMITZ- OUTPATIEN 4 4 CLINIC [facility] T VISIT 15 MINUTES OFFICE 97236 CHATFREDIA MOOKIE OUTPATIEN 4 4 SHANNON SHANNON T NEW 30 MINUTES OFFICE 31328 LUIS FERNANDO LUIS FERNANDO CONSULTAT 4 4 LES LES ION NEW/ESTAB PATIENT 40 MIN OFFICE 15205 VELIA RICHARDSON OUTPATIEN 4 4 CLINIC SERA T VISIT 25 MINUTES OFFICE 94632 VELIASHERRELL SCHMITZ- OUTPATIEN 4 4 CLINIC SE SMITH T VISIT 15 MINUTES OFFICE 50732 [facility] 4 4 [facility] T VIS[facility] [address] [facility], - 4 4 [employer] OUTPATIEN HATTIE T CO HOS OFFICE 28019 [facility] 4 4 [facility] T VISIT [facility] [facility] INC, - 4 4 [employer] OUTPATIEN HATTEI T CO HOS OFFICE 82696 [facility] OUTPATI[facility] 4 4 [facility] T VISIT 10 MINUTES OFFICE 44912 INGE ALCAZAR OUTPATIEN 4 4 CHDA CHAD T VISIT 25 MINUTES OFFICE 86563 [facility] OUT[facility] 4 4 [place] T VISIT 15 MINUTES OFFICE 70345 ASTRID ASTRID OUTPATIEN 4 4 KAREN JONES T VISIT 15 MINUTES PERIODIC 26467 [facility] PREVENTIV 4 4 [place] E MED EST PATIENT - [facility], - 4 4 [employer] MANA[employer] OUTPATIEN HATTIE T [facility] HOS EMERGENCY [address] [facility] INC, 4 4 [employer] DEPARTMEN HATTIE T VISIT CO HOS HIGH/URGE NT SEVERITY OFFICE 65253 [facility] OUTPATI[facility] 4 4 [place] T VISIT 10 MINUTES OFFICE 96558 [facility] OUTPATIEN 3 3 [place] T VISIT 15 MINUTES OFFICE 10163 INGE ALCAZAR OUTPATIEN 3 3 CHAD BONILLA T VISIT [address] [facility] INC, - 3 3 [employer] OUTPATIEN HATTIE T CO HOS OFFICE 74110 [facility] OUTPATI[facility] 3 3 [place] T VISIT 15 MINUTES OFFICE 16534 INGE INGE OUTPATIEN 3 3 CHAD BONILLA T VISIT [address] [facility] INC, - 3 3 [employer] OUTPATI HATTIE [facility] OFFICE 94714 ASTRID RESENDIZ [facility] 3 3 KAREN JONES T VISIT 15 MINUTES OFFICE 07404 INGE INGE CONSULTAT 3 3 CHAD BONILLA ION NEW/ESTAB PATIENT 80 MIN [facility] [place] - 3 3 [facility] T OFFICE 61481 [facility] 3 3 [place] T VISIT 15 MINUTES HOSPITAL DANVERS - 3 3 [facility] T OFFICE 49969 ALLRAN JR ALLRAN JR CONSULTAT 3 3 KASSANDRA HUGO NEW/ESTAB PATIENT 40 MIN OFFICE 75107 [facility] 3 3 [place] T VIS[facility] [address] [facility], - 3 3 [employer] [facility] HATTIE T CO HOS OFFICE 05398 ASTRID [facility] 3 3 KAREN JONES T VISIT 15 MINUTES EMERGENCY 76538 KARI PIERCE 3 3 MARIANA MARIANA [facility] T VISIT HIGH/URGE NT SEVERITY HOSPITAL [facility], - 3 3 [employer] INPATIENT [facility] [address] 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 OUTPATIEN 3 3 TONYA TONYA T NEW 30 MINUTES OFFICE 38374 VELIA BARNETT OUTPATIEN 3 3 [facility] T VISIT 15 MINUTES HOSPITAL [facility], - 3 3 [employer] OUTPATIEN HATTIE T CO HOS OFFICE 24201 VELIA SCHMITZ- OUTPATIEN 3 3 CLINIC [facility] T NEW 30 MINUTES OFFICE 04535 MARYANN MARYANN OUTPATIEN 3 3 ALICIAAlfreda VARGAS T VISIT 40 MINUTES OFFICE 78973 AHMED ADN AHMED ADN OUTPATIEN 2 2 T VISIT 15 MINUTES OFFICE 33604 [facility] FL[facility]OF OUTPATIEN 2 2 T MANUEL T MANUEL T VISIT 25 MINUTES HOSPITAL [facility] - 2 2 Y [facility], - 2 2 [employer] OUTPATIEN HATTIE T CO HOS EMERGENCY 09743 [facility], 2 2 [employer] DEPARTMEN HATTIE T VISIT CO HOS LOW/MODER SEVERITY HOSPITAL [facility], - 2 2 [employer] OUTPATIEN HATTIE T CO HOS OFFICE 20998 AHMED ADN AHMED ADN OUTPATIEN 2 2 T VISIT 15 MINUTES OFFICE 00991 [facility], OUTPATIEN 2 2 [employer] T VISIT 5 HATTIE MINUTES CO HOS OFFICE 45737 AHMED ADN AHMED ADN OUTPATIEN 2 2 T NEW 60 MINUTES OFFICE 34968 [facility] FLOM[facility]OF CONSULTAT 2 2 T MANUEL T MANUEL ION NEW/ESTAB PATIENT 40 MIN HOSPITAL [facility] - [address] [facility] INC, - 2 2 [employer] OUTPATIEN HATTIE T CO HOS EMERGENCY 16749 [facility], 2 2 [employer] DEPARTMEN HATTIE T VISIT CO HOS LIMITED/M INOR PROB EMERGENCY 41196 HATTIE BROOKS 2 2 CO [facility] T VISIT MODERATE SEVERITY OFFICE 88176 MD DIEGO CORTEZ MD OUTPATIEN 2 2 STEPHEN STEPHEN T VISIT 15 MINUTES OFFICE 79256 SARY OKEEFE CONSULTAT 2 2 JOSE JOSE ION NEW/ESTAB PATIENT 60 MIN [facility]OSPITAL [facility] 2 2 [facility] T OFFICE 53557 PER ALBARADO JR OUTPATIEN 2 2 VIRGINIE VIRGINIE T VISIT 15 MINUTES EMERGENCY 13789 DANVERS 2 2 [facility] T VISIT HIGH/URGE NT SEVERITY HOSPITAL [place] [address] 2 [facility] T EMERGENCY 42385 SESAR HERNADEZ DEPT 2 2 VISIT HIGH SEVERITY& THREAT FUNCJ OFFICE 70311 PER ALBARADO JR OUTPATIEN 2 2 VIRGINIE VIRGINIE T VISIT 15 MINUTES OFFICE 68434 MD DIEGO CORTEZ MD OUTPATIEN 2 2 STEPHEN STEPHEN T VISIT 15 MINUTES OFFICE 42406 JEFE MAYBERRY DARRION OUTPATIEN 2 2 T VISIT 15 MINUTES OFFICE 74952 JEFE MAYBERRY DARRION OUTPATIEN 2 2 T VISIT 25 MINUTES OFFICE 67036 JEFE MAYBERRY DARRION OUTPATIEN 2 2 T VISIT 15 MINUTES OFFICE 66072 JEFE MAYBERRY DARRION OUTPATIEN 1 1 T VISIT 15 MINUTES OFFICE 96261 JEFE MAYBERRY DARRION OUTPATIEN 1 1 T VISIT 15 MINUTES EMERGENCY 61779 HATTIE 1 1 [facility] T VISIT LOW/MODER SEVERITY EMERGENCY 45194 HATTIE 1 1 [facility] T VISIT LIMITED/M INOR PROB HOSPITAL HATTIE - 1 1 [facility] T OFFICE 47408 MD DIEGO CORTEZ MD OUTPATIEN 1 1 STEPHEN STEPHEN T NEW 30 MINUTES HOSPITAL [facility] - 1 1 Y [facility] HOSPITAL T EMERGENCY 58375 HIEN EVI 1 1 MEDICAL MAR [facility] T VISIT FOUNDATIO HIGH/URGE NT SEVERITY EMERGENCY 75324 UNIVERSIT DEPT 1 1 Y VISIT HOSPITAL HIGH SEVERITY& THREAT FUNCJ EMERGENCY 80732 HATTIE 1 1 CO [facility] T VISIT HIGH/URGE NT SEVERITY HOSPITAL HATTIE - 1 1 [facility] T EMERGENCY 78538 DREW BARRIENTOS 1 1 EMERGENCY [facility] T VISIT HIGH/URGE NT SEVERITY [facility] [place] - 1 1 [facility] T OFFICE 40863 REJI MAYBERRY DARRION OUTPATIEN 1 1 MEDICAL T VISIT CLINIC 25 MINUTES EMERGENCY 32597 HATTIE 1 1 CO [facility] T VISIT LOW/MODER SEVERITY HOSPITAL HATTIE - 1 1 [facility] T OFFICE 11494 REJI MAYBERRY DARRION [facility] 1 1 MEDICAL T VISIT CLINIC 25 MINUTES OFFICE 39151 SPIREK SPIREK OUTPATIEN 0 0 ANI ANI T VISIT 15 MINUTES HOSPITAL [facility] - 0 0 [facility] T EMERGENCY 11994 HATTIE DEPT 0 0 CO VISIT HOSPITAL HIGH SEVERITY& THREAT FUNCJ OFFICE 99571 REJI ALBARADO [facility] OUT[facility] 0 0 MEDICAL T VISIT CLINIC 15 MINUTES HOSPITAL HATTIE - 0 0 [facility] T EMERGENCY 21638 HATTIE BLANK, 0 0 CO [facility] T VISIT MODERATE SEVERITY [facility] [place] - 0 0 [facility] T OFFICE 48624 REJI ALBARADO OUTPATIEN 0 0 MEDICAL DINAH R T VISIT CLINIC 25 MINUTES OFFICE 82373 SPIREK, MIRYAM OUTPATIEN 0 0 MONROE J MONROE J T NEW 30 MINUTES OFFICE 83807 REJI ALBARADO OUTPATIEN 0 0 MEDICAL DINAH R T VISIT CLINIC 25 MINUTES PERIODIC 28881 REJI ALBARADO PREVENTIV 0 0 MEDICAL DINAH R E MED EST CLINIC PATIENT 12-17YRS HOSPITAL HATTIE - 9 9 [facility] T OFFICE 08532 [place] KRYS SÁNCHEZ 9 9 RICKEY Da Silva T VISIT INTERNAL 15 MED MINUTES HOSPITAL HATTIE Gong 9 9 [facility] T EMERGENCY 81241 HATTIE JAIN 9 9 [facility] MODERATE SEVERITY EMERGENCY 11902 HATTIE 9 9 CO [facility] T VISIT LOW/MODER SEVERITY OFFICE 32191 [place] KRYS SÁNCHEZ 9 9 [place] MANE Da Silva T VISIT INTERNAL 15 MED MINUTES OFFICE 13348 [place] [facility] RICEKY RODRIGUEZ T VISIT INTERNAL MOODY F 15 MED MINUTES HOSPITAL HATTIE - [address] [facility] HATTIE - 9 9 [facility] T OFFICE 34995 [place] KRYS WREN 9 9 RICKEY COLE T VISIT INTERNAL 10 MED MINUTES HOSPITAL HATTIE - 9 9 [facility] HOSPITAL HATTIE - 8 8 [facility] T EMERGENCY 48949 HATTIE BLANK 8 8 CO [facility] T VISIT LIMITED/M INOR PROB HOSPITAL HATTIE - 8 8 [facility] T EMERGENCY 31245 HATTIE BLANK, 8 8 [facility] T VISIT LOW/MODER SEVERITY EMERGENCY 25667 HATTIE 8 8 CO [facility] T VISIT LIMITED/M INOR PROB OFFICE 97106 KRYS UMAÑA 8 8 [facility] VISIT INTERNAL 10 MED MINUTES OFFICE 32356 INGE ALCAZAR, CONSULTAT 8 8 CHAD B CHAD B ION NEW/ESTAB PATIENT 40 MIN OFFICE 76007 KRYS UMAÑA 8 8 [place] DOUGLAS VISIT INTERNAL 15 MED MINUTES
--- OUTSIDE RECORDS SUMMARY | 2017-09-02 19:07 | External Medical Summary Rpt | CCD ---
Author Author , SJ Hunter SJ Address Unknown Phone [email or web address] Care Team Providers Care Academic Records Specialist Name Role Phone [employer] Unavailable Unavailable INC, [employer] AHMED ADN, AHMED ADN Unavailable Unavailable AHMED ADN, AHMED ADN Unavailable Unavailable [facility] Unavailable [facility]available [facility] ALLRAN JR KASSANDRA, ALLRAN Unavailable Unavailable JR KASSANDRA [facility] LEONEAN AMBULETT & Unavailable Unavailable AMBULANC, [facility] LEONEAN AMBULETT & AMBULANC [facility] LEONEAN AMBULETT & Unavailable Unavailable AMBULANC, [facility] LE[facility] AMBULETT & AMBULANC LUIS FERNANDO LES, LUIS FERNANDO Unavailable Unavailable LES LUIS FERNANDO LES, LUIS FERNANDO Unavailable Unavailable LES [facility] Unavailable Unavailable [facility], [facility] Unavailable Unavailable MEDICAL GROUP, [facility] BEINEKE NANI, BEINEKE Unavailable Unavailable NANI CURRAN AURORA, CURRAN Unavailable Unavailable AURORA BESSON, MANE A, Unavailable Unavailable BESSON, MANE A [employer] Unavailable Unavailable INC., [employer] LEZAMA, LEZAMA Unavailable Unavailable LEZAMA LASHON, LEZAMA LASHON Unavailable Unavailable [facility] Unavailable Unavailable HOSPITAL, [facility] PHYSICIAN Unavailable Unavailable PRACTICE L, [facility] [employer] [employer] Unavailable Unavailable CORBIN JAM, CORBIN JAM Unavailable Unavailable [facility], Unavailable Unavailable [facility] SARAH, Unavailable Unavailable [facility] SARAH BUTROS MARISEL, BUTROS Unavailable Unavailable MARISEL [facility], Unavailable Unavailable [facility] PIERCE MARIANA, PIERCE Unavailable Unavailable MARIANA PIERCE MARIANA, PIERCE Unavailable Unavailable MARIANA [facility] Unavailable Unavailable [facility], [facility] Unavailable Unavailable [facility]OC, [facility] ANNE ALDEN, ANNE Unavailable Unavailable ALDEN CHATTHA SHANNON, CHATTHA Unavailable Unavailable SHANNON [facility] Unavailable Unavailable [facility] WAI ANIBAL, CARRENO [...] Unavailable IM[facility], [facility], Unavailable Unavailable [facility] Unavailable Unavailable HOLD[facility], [facility] Unavailable Unavailable [facility], [facility] Unavailable Unavailable [facility] Unavailable Unavailable [facility]INGS, [facility], Unavailable Unavailable [facility] ADLER TONYA, ADLER Unavailable Unavailable TONYA [...] B MAUL PRANAV, MAUL PRANAV Unavailable Unavailable [facility] Unavailable Unavailable ASSOCIAT, [facility] MOODY LOPEZ JR Unavailable Unavailable F, JOHN RODRIGUEZ, MOODY F [facility] Unavailable Unavailable [facility], [facility] Unavailable Unavailable [facility], [facility] MAYBERRY DARRION, MAYBERRY DARRION Unavailable Unavailable MAYBERRY DARRION, MAYBERRY DARRION Unavailable Unavailable [facility], Unavailable Unavailable [facility] HERBERTH EDW, HERBERTH Unavailable Unavailable EDW [facility]BERTH EDW, HERBERTH Unavailable Unavailable EDW MD STEPHEN CORTEZ, DIEGO, Unavailable Unavailable MD [facility], Unavailable Unavailable [facility] Unavailable Unavailable AMBULANCE SE, [facility] Unavailable Unavailable [facility]ULANCE [facility], [facility] Unavailable Unavailable URGENT TREAT, [facility], Unavailable Unavailable [...] Unavailable Unavailable EQUIPME, [facility] Unavailable Unavailable EMERGENCY PHYS, [facility] SPIREK ANI, SPIREK Unavailable Unavailable ANI SPIREK ANI, SPIREK Unavailable Unavailable ANI SPIREK, MONROE J, Unavailable Unavailable SPIREK, MONROE J [facility] Unavailable Unavailable [facility], [facility] EVI MAR, EVI Unavailable Unavailable [facility] Unavailable Unavailable [facility] [place] [place] [facility] HOFFMAN ANIBAL, Unavailable Unavailable [facility] AN[facility]AL BROOKS DIOGENES, BROOKS Unavailable Unavailable DIOGENES SWINEY PAT, SWINEY Unavailable Unavailable PAT SWINEY PAT, SWINEY Unavailable Unavailable PAT TANOUS, JR EDW, Unavailable Unavailable TANOUS, JR EDW TANOUS, JR EDW, Unavailable Unavailable TANOUS, JR EDW ELADIO, ELADIO Unavailable Unavailable [facility] Un[facility] Unavailable LLC, [facility] MARYANN ALICIA, MARYANN Unavailable Unavailable ALICIA MARYANN ALICIA, MARYANN Unavailable Unavailable [facility], Unavailable Unavailable [facility] Unavailable [facility] VILLAFLOR OSI, Unavailable Unavailable [facility]ILL[facility] OSI VILLAFLOR OSI, Unavailable Unavailable VILL[facility]FLOR OSI VORKPOR EMIGDIO, VORKPOR Unavailable Unavailable EMIGDIO VORKPOR EMIGDIO, VORKPOR Unavailable Unavailable EMIGDIO [facility] Unavailable Unavailable #493, [id number] # [facility]available Unavailable [id number], [facility] # [id number] [facility] Unavailable [facility]available DEPT KIERA, [facility] DE[facility] KIER[facility] Unavailable Unavailable DEPT KIERA, [facility] YONGBANG ALB, Unavailable Unavailable YONGBANG [...] OTHER ASTHMA NONSPECIFIC ASSOC OF SKIN ERUPTION [id number] ADVERS EFF 08-01-2017 [facility] MED[facility] ASTHMA BIO ASSOC OF SUBSTANCES INIT ENC [id number] ANAPHYLACTI 08-01-2017 [facility] C SHOCK ASTHMA UNSPECIFIED ASSOC OF TH INITIAL ENCOUNTER J029 ACUTE 06-27-2017 [facility] PHARYNGITIS [facility]INIC UNSPECIFIED J4521 MILD 06-27-2017 [facility] INTERMITTEN CLINIC T ASTHMA WITH ACUTE EXACERBATIO N R198 OTH SPEC SX 06-13-2017 [facility] INVLV THE SHUNK DIGESTV SYS & ABD [id number] ENCOUNTER 06-07-2017 [facility] FOOD EXPEDITOR EXAM DISTRICT GENERAL RTN HLTH DEPT W/O [...] TEST RESULT KIERA NEGATIVE R5383 OTHER 06-06-2017 [facility] FATIGUE HEALTH SHUNK Z0000 ENCOUNTER 06-06-2017 [facility] GEN ADULT HEALTH MED EXAM SHUNK W/O ABNORMAL FIND K5900 CONSTIPATIO 05-16-2017 [facility] [place] RADIOLOGY UNSPECIFIED R109 UNSPECIFIED 05-16-2017 [facility] R197 DIARRHEA 05-16-2017 [facility] [place] UNSPECIFIED RADIOLOGY R8290 UNSPECIFIED 05-16-2017 [facility] ABNORMAL ELIZABETH FINDINGS IN HOLDINGS URINE [id number] TOX EFF 02-08-2017 [facility] ACC INITIAL ENC U46863 MIGRAINE 02-07-2017 [facility] UNS NOT EMERGENCY INTRACT W/O PHYS PSC STATUS MIGRAINOSUS J10685 UNSPECIFIED 02-07-2017 [facility] ASTHMA HEALTH UNCOMPLICAT SHUNK ED 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 M4606 SPINAL 02-07-2017 NONA ENTHESOPATH Y LUMBAR REGION M545 LOW BACK 02-07-2017 NONA PAIN U10521 MUSCLE 02-07-2017 NONA SPASM OF BACK M9903 SEGMENTAL & 02-07-2017 NONA SOMATIC DYSFUNCTION OF LUMBAR REGION M9904 SEGMENTAL & 02-07-2017 NONA SOMATIC DYSFUNCTION OF SACRAL REGION R1110 VOMITING 02-07-2017 [facility] [place] UNSPECIFIED URBAN COGOVT R410 DISORIENTAT 02-07-2017 [facility] [place] ION URBAN UNSPECIFIED COGOVT R4182 ALTERED 02-07-2017 [facility] STATUS ASSOC UNSPECIFIED R51 HEADACHE 02-07-2017 [facility] [place] URBAN COGOVT R569 UNSPECIFIED 02-07-2017 [facility] HEALTH CONVULSIONS SHUNK [id number] STRAIN 02-07-2017 NONA MUSCLE FASCIA & TENDON LOW BACK INITIAL Z833 FAMILY 02-07-2017 [facility] HISTORY OF HEALTH DIABETES SHUNK MELLITUS Z880 ALLERGY 02-07-2017 [facility] STATUS TO HEALTH PENICILLIN SHUNK Z888 ALLERGY 02-07-2017 [facility] STATUS OT HEALTH RX MEDS & SHUNK BIOLOG SUBSTANC STS J101 FLU D/T OTH 01-17-2017 [facility] ID FLU CLINIC VIRUS OTH RESP MANIFESTATI ONS R05 COUGH 01-17-2017 [facility] J209 ACUTE 12-24-2016 [facility] BRONCHITIS [facility] UNSPECIFIED INC J40 BRONCHITIS 12-24-2016 [facility] NOT PHYSICIANS, SPECIFIED PLLC ACUTE OR CHRONIC Z7689 PERSONS 12-15-2016 [facility] ENCOUNTER [facility] OTH KIERA CIRCUMSTANC ES J020 STREPTOCOCC 12-10-2016 [facility] AL [facility]INIC PHARYNGITIS Q54134 PAIN IN 10-23-2016 [facility] RIGHT N EMERGENCY SHOULDER PHYS Q34203 PAIN IN 10-23-2016 [facility] [place] RIGHT ELBOW RADIOLOGY M78574 PAIN IN 10-23-2016 [facility] [place] RIGHT KNEE RADIOLOGY R0781 PLEURODYNIA 10-23-2016 [facility] PHYS R0789 OTHER CHEST 10-23-2016 [facility] [place] PAIN RADIOLOGY S93354S ABRASION [facility] 10-23-2016 [facility] ELBOW PHYS INITIAL ENCOUNTER [id number] ABRASION 10-23-2016 [facility] RIGHT KNEE N EMERGENCY INITIAL PHYS ENCOUNTER E32348 OTHER LONG 10-23-2016 [place] TERM COMMUNITY CURRENT [...] AGE R040 EPISTAXIS 06-07-2016 [facility] [place] RADIOLOGY [id number] CONTUSION 06-07-2016 [facility] OF NOSE N EMERGENCY [...] [facility] HOLDINGS K219 GASTRO-ESOP 04-28-2016 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 KIERA J028 ACUTE 11-24-2015 [facility] PHARYNGITIS [facility] DUE TO URGENT OTHER SPEC TREAT ORGANISMS J4522 MILD 11-24-2015 [facility] T ASTHMA URGENT WITH STATUS TREAT ASTHMATICUS R062 WHEEZING 11-24-2015 [facility] URGENT TREAT R102 PELVIC AND 10-17-2015 VORKPOR EMIGDIO PERINEAL PAIN D529 FOLATE 09-10-2015 [facility] DEFICI[facility]Y [facility] ANEMIA HLTH DEPT UNSPECIFIED KIERA Z23 ENCOUNTER 09-10-2015 [facility] FOR DISTRICT IMMUNIZATIO HLTH DEPT N KIERA R1310 DYSPHAGIA 09-05-2015 EAR, NOSE UNSPECIFIED AND THROAT SPECIAL R1313 DYSPHAGIA 09-01-2015 [facility] PHARYNGEAL [facility] PHASE URGENT TREAT 5589 OTH&UNSPEC 06-14-2015 RANI BEAL NONINFECTIO US GASTROENTER ITIS&COLITI S 23906 NAUSEA WITH 06-14-2015 [facility] [place] VOMITING RADIOLOGY 56854 ABDOMINAL 06-14-2015 RANI BEAL PAIN RIGHT LOWER QUADRANT V2549 SURVEILLANC 06-10-2015 [facility] E OTH PREV DISTRICT PRSC [facility] DEPT CONTRACEPT KIERA METHOD V2689 OTHER 06-10-2015 [facility] SPECIFIED DISTRICT PROCREATIVE [facility] DEPT MANAGEMENT KIERA 09698 ASTHMA, 05-08-2015 [facility] UNSPECIFIED [facility] , INC UNSPECIFIED STATUS 66143 UNSPECIFIED 05-08-2015 [facility] SITE OF PHYSICIANS, ANKLE PLLC SPRAIN AND STRAIN 2299 BENIGN 05-06-2015 [place] NEOPLASM OF [facility] HOSPITAL UNSPECIFIED SITE 5990 URINARY 05-06-2015 SWINE[facility] PAT TRACT INFECTION SITE NOT SPECIFIED 6202 OTHER AND 05-06-2015 [facility] PAT UNSPECIFIED OVARIAN CYST 56235 ABDOMINAL 05-06-2015 [place] PAIN, [facility] UNSPECIFIED HOSPITAL SITE 7919 OTHER 05-06-2015 [place] NONSPECIFIC COMMUNITY FINDING HOSPITAL EXAMINATION OF URINE V140 PERSONAL 05-06-2015 [place] HISTORY OF COMMUNITY ALLERGY TO HOSPITAL PENICILLIN V1582 PERS HX 05-06-2015 [place] TOBACCO USE COMMUNITY PRESENTING HOSPITAL HAZARDS HEALTH 93561 PAIN IN 02-22-2015 [facility] [place] JOINT RADIOLOGY PELVIC REGION AND THIGH 79917 CHEST PAIN 02-22-2015 [facility] UNSPECIFIED [facility] AMBULANCE SE 8470 NECK SPRAIN 02-22-2015 [facility] EDW AND STRAIN 8472 LUMBAR 02-22-2015 [facility] EDW SPRAIN AND STRAIN 9221 CONTUSION 02-22-2015 [facility] EDW OF CHEST WALL 9222 CONTUSION 02-22-2015 [facility] EDW OF ABDOMINAL WALL 36894 INJURY OF 02-22-2015 [facility] [place] FACE AND RADIOLOGY NECK OTHER AND UNSPECIFIED 91045 OTHER 02-22-2015 [facility] [place] INJURY OF RADIOLOGY OTHER SITES OF TRUNK 3688 OTHER 02-03-2015 [place] SPECIFIED MEDICAL VISUAL IMAGING ASS DISTURBANCE S 7231 CERVICALGIA 02-03-2015 [facility] 6259 UNSPEC 12-19-2014 [facility] [place] SYMPTOM RADIOLOGY ASSOC W/FEMALE GENITAL ORGANS 71321 ABDOMINAL 12-19-2014 [place] TENDERNESS [facility] RIGHT LOWER HOSPITAL QUADRANT V1329 PERSONAL HX 12-19-2014 [facility]&OBST ETRIC D/O 7804 DIZZINESS 12-11-2014 [facility] AND CLINIC GIDDINESS 18760 ACUTE 12-03-2014 IN[facility] SEROUS CHAD OTITIS MEDIA 4770 ALLERGIC 12-03-2014 INGE RHINITIS CHAD DUE TO POLLEN 4778 ALLERGIC 12-03-2014 INGE RHINITIS CHAD DUE TO OTHER ALLERGEN 66203 EXTRINSIC 12-03-2014 INGE ASTHMA, CHAD WITH EXACERBATIO N 0088 INTESTINAL 11-01-2014 HOUSVINH SOY INFECTION DUE TO OTHER ORGANISM NEC 80501 DIARRHEA 11-01-2014 RACHEL SOY 5362 PERSISTENT 10-31-2014 KABA SATYA VOMITING 03624 SHORTNESS 10-27-2014 [facility] 23926 ASTHMA 10-24-2014 [facility] UNSPECIFIED CLINIC WITH EXACERBATIO N 94946 UNSPECIFIED 10-23-2014 [facility]ULT SLEEP PRIMARY DISTURBANCE CARE CLI 64927 INSOMNIA 10-23-2014 [facility] ADULT UNSPECIFIED PRIMARY CARE CLI 3829 UNSPECIFIED 10-15-2014 [facility] OTITIS [facility] MEDIA HOLDINGS 462 ACUTE 10-15-2014 [facility] PHARYNGITIS [facility] HOLDINGS 65748 GENERALIZED 10-15-2014 [facility] PAIN [facility]IZ[facility] HOLDINGS 0549 HERPES 10-10-2014 [facility] WITHOUT [facility] MENTION OF COMPLICATIO N 0340 STREPTOCOCC 10-09-2014 [facility] AL SORE CLINIC THROAT 90352 UNSPECIFIED 09-30-2014 [facility] INFECTIVE CLINIC OTITIS EXTERNA 7862 COUGH 09-30-2014 [facility] 4779 ALLERGIC 08-22-2014 [facility] ADULT RHINITIS PRIMARY CAUSE CARE CLI UNSPECIFIED 7245 UNSPECIFIED 08-22-2014 [facility] ADULT BACKACHE PRIMARY CARE CLI 7177 CHONDROMALA 08-14-2014 [facility] S SPORT 44403 PAIN IN 08-10-2014 [facility] JOINT, [place]G AUSTEN 32293 PAIN IN 07-30-2014 [place] JOINT, MEDICAL SHOULDER IMAGING ASS REGION 8409 SPRAIN&STRA 07-30-2014 FLAVIO JANA IN UNSPEC SITE SHOULDER&UP PER ARM E9288 OTHER 07-30-2014 FLAVIO JANA ACCIDENT 44326 SPRAIN AND 07-12-2014 SCHUL[facility] CHR STRAIN OF DELTOID OF ANKLE 16349 UNSPECIFIED 06-11-2014 LUIS FERNANDO LES TINNITUS 02744 SUBJECTIVE 06-11-2014 [facility] TINNITUS PHYSICIAN PRACTICE L 3899 UNSPECIFIED 06-11-2014 [facility] HEARING PHYSICIAN LOSS PRACTICE L 56250 UNSPECIFIED 06-06-2014 [place] VAGINITIS CLINIC AND VULVOVAGINI TIS 7821 RASH AND 06-06-2014 [place] OTHER CLINIC NONSPECIFIC SKIN ERUPTION 57466 UNSPECIFIED 05-31-2014 [place] OTALGIA CLINIC 61211 PAIN IN 05-31-2014 [place] JOINT, CLINIC ANKLE AND FOOT 78947 OTHER 02-25-2014 INGE CHRONIC CHAD ALLERGIC CONJUNCTIVI TIS 67880 EXTRINSIC 02-25-2014 INGE ASTHMA, CHAD UNSPECIFIED 7840 HEADACHE 02-13-2014 [facility] [place] 4659 ACUTE URIS 02-01-2014 ASTRID JONES OF UNSPECIFIED SITE V202 ROUTINE 01-14-2014 [facility] OR [place] CHILD HEALTH CHECK 14082 WHEEZING 12-20-2013 CARR[place] ANIBAL V0481 NEED 12-06-2013 [facility] PROPHYLACTI [place] C VACCINATION &INOCULATIO N FLU 98425 UNSPECIFIED 11-08-2013 [facility] ACUTE [place] NONSUPPURAT MORENITA OTITIS MEDIA 4772 ALLERGIC 11-05-2013 INGE RHINITIS CHAD DUE TO ANIMAL HAIR AND DANDER V727 DIAGNOSTIC 11-05-2013 INGE SKIN AND CHAD SENSITIZATI ON TESTS 7295 PAIN IN 10-30-2013 [facility], SOFT CHOCOLATE MAKER TISSUES OF PSYCHIATRIC LIMB HOS 7823 EDEMA 10-30-2013 [facility], CHOCOLATE MAKER PSYCHIATRIC HOS 7881 DYSURIA 10-30-2013 [facility] [place] 9599 INJURY 10-30-2013 HAGENSCHNEI OTHER AND CARLOS LASHON UNSPECIFIED UNSPECIFIED SITE 36706 ACUT 10-11-2013 INGE SUPPRATV CHAD OTITIS MEDIA W/O SPONT RUP EARDRUM V720 EXAMINATION 10-11-2013 DREW OF EYES GRE AND VISION 68153 DISORDERS 10-09-2013 ASTRID NAN OF SOFT TISSUE UNSPECIFIED 4739 UNSPECIFIED 09-20-2013 IN[facility] SINUSITIS CHAD 92199 EXTRINSIC 09-20-2013 INGE ASTHMA WITH CHAD STATUS ASTHMATICUS 97355 OBESITY, 09-07-2013 ANTHONY UNSPECIFIED [facility] 78474 CHRONIC 09-07-2013 JR TANIA CHOLECYSTIT EDW IS 5758 OTHER 09-07-2013 SIENNA ANT SPECIFIED DISORDER OF GALLBLADDER 5759 UNSPECIFIED 09-04-2013 [facility] GALLBLADDER V7284 UNSPECIFIED 09-04-2013 [facility] PRE-OPERATI HOSPITAL VE EXAMINATION 23285 ABDOMINAL 08-08-2013 RUSSEL RHO PAIN RIGHT UPPER QUADRANT 11181 VOMITING 07-28-2013 [facility], ALONE CHOCOLATE MAKER PSYCHIATRIC HOS 486 PNEUMONIA, 06-20-2013 HAGENSCHNEI ORGANISM CARLOS LASHON UNSPECIFIED 4660 ACUTE 06-18-2013 PIERCE MARIANA BRONCHITIS 2150 OTH HANK 04-10-2013 ADLER TONYA NEOPLSM CNCTV&OTH SFT TISS HEAD FCE&NCK 53695 NEOPLASMS 04-10-2013 HOWARD JANA UNSPECIFIED NATURE OTH SPECIFIED SITES 64388 ESOPHAGEAL 04-10-2013 [facility] 7856 ENLARGEMENT 04-10-2013 [facility] NODES V7263 PRE-PROCEDU 04-02-2013 [facility], RAL CHOCOLATE MAKER LABORATORY PSYCHIATRIC EXAMINATION HOS 2893 LYMPHADENIT 03-26-2013 VITOR TONYA IS UNSPECIFIED EXCEPT MESENTERIC 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 7822 LOCALIZED 03-13-2013 [place] SUPERF[facility]IAL [facility]INIC SWELLING MASS OR LUMP 7831 ABNORMAL 02-28-2013 [facility], WEIGHT GAIN CHOCOLATE MAKER PSYCHIATRIC HOS 7842 SWELLING 02-28-2013 [facility], MASS OR [facility] LUMP IN PSYCHIATRIC HEAD AND HOS NECK V770 SCREENING 02-28-2013 [facility], FOR THYROID CHOCOLATE MAKER DISORDER PSYCHIATRIC HOS V771 SCREENING 02-28-2013 [facility], FOR CHOCOLATE MAKER DIABETES PSYCHIATRIC MELLITUS HOS 6119 UNSPECIFIED 12-07-2012 MARYANN ALICIA BREAST DISORDER 6262 EXCESSIVE 12-07-2012 MARYANN ALICIA OR FREQUENT MENSTRUATIO N 18551 OTHER 12-07-2012 MARYANN ALICIA MALAISE AND FATIGUE 78482 HEAD 11-08-2012 [facility] LEONEAN INJURY, AMBULETT & UNSPECIFIED AMBULANC 7291 UNSPECIFIED 11-01-2012 AHMED ADN MYALGIA AND MYOSITIS 42885 ABDOMINAL 11-01-2012 AHMED ADN PAIN OTHER SPECIFIED SITE 03813 EOSINOPHILI 09-19-2012 [facility]OMEN[facility] C MANUEL ESOPHAGITIS 2883 EOSINOPHILI 08-28-2012 [facility] HOSPI 5368 DYSPEPSIA&O 08-28-2012 [facility] DISORDERS FUNCTION STOMACH 5379 UNSPECIFIED 08-28-2012 [facility] OF STOMACH HOSPI AND DUODENUM 5699 UNSPECIFIED 08-28-2012 [place] DISORDER [facility] OF HOSPI INTESTINE 18847 NAUSEA 08-28-2012 [facility] 05440 ABDOMINAL 08-28-2012 [place] [facility], LEFT SERVICES LOWER QUADRANT 16828 ABDOMINAL 08-28-2012 [facility], HOSPITAL GENERALIZED V643 PROCEDURE 08-27-2012 [facility], NOT CARRIED CHOCOLATE MAKER OUT FOR HATTIE TELLO OTHER HOS REASONS 12336 SWELLING OF 08-25-2012 [facility], LIMB CHOCOLATE MAKER [facility] TELLO HOS E8809 ACCIDENTAL 08-25-2012 [place] [facility] ON OR RADIOLOGY FROM OTHER ASSOCIAT STAIRS OR STEPS E8889 UNSPECIFIED 08-25-2012 AHMED ADN FALL 4610 ACUTE 08-01-2012 [facility] MAXILLARY SINUSITIS 13912 OPEN WOUND 03-07-2012 [facility] TELL[facility] LIP WITHOUT HOSPITAL MENTION COMPLICATIO N E8490 PLACE OF 03-07-2012 [facility] TE[facility] OCCURRENCE, HOSPITAL HOME E8888 OTHER FALL 03-07-2012 [facility] 6200 FOLLICULAR 12-27-2011 PER JR CYST OF [place] OVARY 3814 NONSUPPRATV 12-10-2011 JEFE DARRION OTITIS MEDIA NOT SPEC ACUT/CHRON V7231 ROUTINE 11-29-2011 PATHOLOGY & GYNECOLOGIC CYTOLOGY AL LAB EXAMINATION 4619 ACUTE 11-25-2011 MAYBERRY DARRION SINUSITIS, UNSPECIFIED 77978 URINARY 11-25-2011 MAYBERRY DARRION FREQUENCY 6260 ABSENCE OF 10-13-2011 [facility] MENSTRUATIO AMERIC N HOLDINGS 27393 PAIN IN 10-01-2011 [place] JOINT, RADIOLOGY UPPER ARM ASSOCIAT 59191 CONTUSION 10-01-2011 [facility] TELLO OF [facility] 9593 INJURY 10-01-2011 [place] OTHER&UNSPE RADIOLOGY CIFIED ASSOCIAT [facility] [employer]&WRI ST 6252 MITTELSCHME 09-19-2011 VILLA[facility]OR RZ OSI 76678 PAIN IN 06-16-2011 [place] JOINT, HAND RADIOLOGY ASSOCIAT 7937 NONSPC ABN 06-16-2011 [place] FINDNG RAD RADIOLOGY & OTH EXM ASSOCIAT MUSCULSKELT L SYS 64064 CLOS 06-16-2011 [facility] FRACTURE HOSPITAL MID/PROXIMA L PHALANX/PHA LANG HAND 49454 SPRAIN AND 06-16-2011 [facility] STRAIN OF HOSPITAL UNSPECIFIED SITE OF HAND 87948 CONTUSION 06-16-2011 [facility] OF HAND HOSPITAL 9594 INJURY 06-16-2011 [place] OTHER AND RADIOLOGY UNSPECIFIED ASSOCIAT HAND EXCEPT FINGER E9270 OVEREXERTIO 06-16-2011 [facility] N FROM HOSPITAL SUDDEN STRENUOUS MOVEMENT 6253 DYSMENORRHE 10-21-2010 SPIREK ANI A 4658 ACUTE URIS 10-13-2010 ROSAMARIA CA[place] OF OTHER MULTIPLE SITES 4871 INFLUENZA 10-13-2010 [facility] WITH OTHER HOSPITAL RESPIRATORY MANIFESTATI ONS 24102 OTHER 10-13-2010 [place] ASCIT[facility] E8496 PLACE OF 04-13-2010 [facility] PUBLIC BUILDING E9175 STRIKE 04-13-2010 [facility] K ACC OTH OBJ SPORTS W/FALL 2564 POLYCYSTIC 02-05-2010 [facility] GUPTA 5950 ACUTE 02-03-2010 [facility] 6268 OTH D/O 12-10-2009 [facility] MENSTRUATIO MEDICAL N&OTH ABN CLINIC BLEED FE GNT TRACT 50217 UNSPECIFIED 06-24-2009 [facility] BINOCULAR VISION VISION ANDLEARNING DISORDER 74263 NYSTAGMUS 06-24-2009 [facility] W/DEFIC VISION SMOOTH ANDLEARNING PURSUIT MOVEMENTS 9063 LATE EFFECT 05-26-2009 [facility] OF [facility] CONTUSION 39442 CONTUSION 05-25-2009 [facility] OF [facility] E8499 UNSPECIFIED 05-25-[address] [facility] OCCURRENCE E8859 FALL FROM 05-25-2009 [facility] OTHER HOSPITAL SLIPPING TRIPPING OR STUMBLING 99056 VISUAL 04-01-2009 [facility] 51204 MIGRAINE 04-17-2008 [facility] W/[facility] W/O INTRACT W/O STAT MIGRNOSUS 13633 EFFUSION OF 03-30-2008 [facility] PSC 7812 ABNORMALITY 03-30-2008 [facility] 845 SPRAINS AND 03-30-2008 [facility] STRAINS OF HOSPITAL ANKLE AND FOOT 9160 HIP THI 03-30-2008 [facility] ABRASION/FR ICION BURN W/O INF 9170 ABRASION/FR 03-30-2008 [facility] ICTION [facility]PITAL FOOT&TOE W/O MENTION INF 69597 CONTUSION 03-30-2008 [facility] V642 SURG/OTH 03-30-2008 [facility] PROC NOT HOSPITAL CARRIED OUT BECAUSE PTS DECN 460 ACUTE 12-22-2007 [facility] INTERNAL MED 4780 HYPERTROPHY 12-18-2007 [facility], OF NASAL CHAD B TURBINATES 9953 ALLERGY 12-08-2007 [facility] UNSPECIFIED [facility] NOT INTERNAL ELSEWHERE MED CLASSIFIED 5184 UNSPECIFIED 02-22-2007 [facility] EDEMA OF PEDIA LUNG 5839 NEPHRITIS&N 02-22-2007 [facility] NOT AC/CHRN PEDIA W/UNS PATHAL LES [...] 34 7- 1- 00 01 UC ve [place] 59 20 20 04 [place] ED 31 [...] 06 07 30 30 00 KE Ac WI 37 -2 -2 .0 00 NT ti [...] 80 6- 8- 00 01 UC ve [place] 01 20 20 03 [place] AM 00 [...] 80 2- 6- 00 01 UC ve [place] 01 20 20 03 [place] AM 00 17 17 07 5 85 CV HB S R PH 20 AR MA MG CY TA LL BL C, ET DB A CV S PH AR MA CY #3 01 6 WI 00 05 06 60 30 00 KE [...] 80 0- 8- 00 01 UC ve WI 01 20 20 01 [place] AM 00 [...] 03 04 28 14 00 KE Ac WI 16 -1 -0 .0 00 NT ti [...] 01 KY ZA 11 17 17 27 WI 0 45 CV IN S E PH 10 AR MA MG CY TA LL BL C, ET DB A CV S PH AR MA CY #3 01 6 OS 47 02 03 10 5 00 KE Ac EL 78 -2 -2 .0 00 NT ti TA 10 7- 4- 00 01 UC ve OK 47 20 20 00 [place] 01 17 [...] PH AR MA CY #3 01 6 WI 00 02 03 10 5 00 KE [...] 1% 46 11 11 FA TH 0 OK AN SH LY L AM PO DR O UG MA 51 04 04 0 59 1 SO 37 WH Ac LA 67 -1 -1 .0 PE 09 EE ti TH 25 3- 3- 00 RS 00 LE ve IO 27 20 20 R N 70 11 11 FA KR 0. 4 OK IS 5% LY TI E LO DR [...] 0 30 15 [place] 71 WH Ac WI 74 -1 -1 .0 L- 55 EE [...] JR IN 26 10 10 FA 7 OK CH 1% LY ES TE LO DR R TI UG R ON PE 00 11 11 1 59 2 SO 35 YO Ac RM 47 -0 -0 .0 PE 68 UN ti ET 25 8- 8- 00 RS 56 G ve HR 24 20 20 JR IN 26 10 10 FA 7 OK CH 1% LY ES TE LO DR [...] 00 7. 7 SO 30 JU Ac WI 06 -3 -0 50 PE 97 DY ti OD 58 0- 9- 0 RS 96 ve EX 53 20 20 NA 30 09 09 FA TA OT 2 OK LI IC LY E E MARIE DR DE LA GARZA UG EN SI ON 59 03 04 00 20 10 SO 30 JU Ac 76 -3 -0 .0 PE 97 DY ti 22 0- 9- 00 RS 95 ve 18 20 20 NA 00 09 09 FA TA 1 OK LI LY E E DR KEN WI 60 03 03 00 12 5 SO 30 HU Ac OM 43 -1 -2 0. PE 86 NT ti ET 20 7- 6- 00 RS 30 ER ve NAILS 60 20 20 0 ZI 41 09 09 FA NA NE 6 OK NC -D LY Y M C SY DR TRAN UG P TA 00 03 03 00 10 5 SO 30 HU Ac OK 00 -1 -2 .0 PE 86 NT ti FL 40 7- 6- 00 RS 44 ER ve U 80 20 20 75 08 09 09 FA NA 5 OK NC MG LY Y C CA DR PS UG UL E AB 59 01 00 45 30 SO 30 HU Ac IL 14 -1 -3 .0 PE 32 NT ti IF 80 3- 0- 00 RS 87 ER ve Y 00 20 20 5 71 09 09 FA NA MG 3 OK NC LY Y TA C BL DR ET UG WI 50 01 01 00 60 30 SO 30 HU Ac OP 11 -1 -3 .0 PE 32 NT ti RA 10 3- 0- 00 RS 85 ER ve NO 46 20 20 LO 70 09 09 FA NA L 1 OK NC 10 LY Y C MG DR UG TA BL ET 60 01 01 00 12 3 SO 30 HU Ac 25 -1 -3 0. PE 32 NT ti 80 3- 0- 00 RS 84 ER ve 23 20 20 0 91 09 09 FA NA 6 OK NC LY Y C DR UG AB 59 06 06 00 15 30 SO 28 No Ac IL 14 -0 -1 .0 PE 58 t ti IF 80 5- 2- 00 RS 88 Av ve Y 00 20 20 ai 5 71 08 08 FA la MG 3 OK bl LY e TA BL ET UG 17 06 06 00 15 15 SO 28 No Ac 31 -0 -1 .0 PE 58 t ti 45 5- 2- 00 RS 89 Av ve 85 20 20 ai 10 08 08 FA la 2 OK bl LY e DR UG NA 00 03 00 17 30 SO 27 No Ac SO 08 -2 -2 .0 PE 41 t ti NE 51 8- 6- 00 RS 12 Av ve X 28 20 20 ai 50 80 08 08 FA la 1 OK bl MC LY e G NA DR SA UG L SP RA Y 00 03 00 30 30 SO 27 No Ac 09 -2 -2 .0 PE 41 t ti 51 8- 6- 00 RS 15 Av ve 29 20 20 ai 00 08 08 FA la 6 OK bl LY e DR UG 63 01 03 00 20 10 SO 27 No Ac 30 -2 -2 .0 PE 41 t ti 40 8- 6- 00 RS 14 Av ve 75 20 20 ai 12 08 08 FA la 0 OK bl LY e UG 17 03 00 30 30 SO 27 No Ac 31 -2 -2 .0 PE 34 t ti 45 1- 5- 00 RS 51 Av ve 85 20 20 ai 10 08 08 FA la 2 OK bl LY e UG AB 59 11 23 00 45 30 SO 27 No Ac IL 14 -2 -2 .0 PE 34 t ti IF 80 1- 5- 00 RS 53 Av ve Y 00 20 20 ai 5 71 08 08 FA la MG 3 OK bl LY e TA BL DR ET UG WI 50 01 03 00 60 30 SO 27 No Ac OP 11 -1 -2 .0 PE 33 t ti RA 10 8- 5- 00 RS 47 Av ve NO 46 20 20 ai LO 70 08 08 FA la L 1 OK bl [address] UG TA BL ET Immunization Name Date Rout CVX Reac Dose Comm Prov Is Faci e tion ent ider Refu lity Give sed n IIV3 01- 141 HAMI No HAMI 6-20 [place] VACC 14 [place] INE SPLI T VIRU [place] S 0.5 ML DOSA GE IM USE Procedures Procedure DOS Code Location Performer Comment IAADIADOO 90022 VELIA BARNETT 7 [place] [address] [address] REAL [facility] TIME W/IMAGE DOCUMENTA TION INJECTION J1050 [facility] MEDROXYPR [facility] DEPT [facility] DEPT [place]GE[place] KIERA KIERA E ACETATE 1 MG IADNA 44211 [facility] CHLAMYDIA 7 [facility] DEPT [facility] DEPT TRACHOMAT KIERA KIERA IS AMPLIFIED PROBE TQ URINE 84151 [facility] TEST [facility] DEPT [facility] DEPT VISUAL KIERA KIERA COLOR CMPRSN METHS IADNA 88951 [facility] NEISSERIA 7 [facility] DEPT [facility] DEPT GONORRHOE KIERA KIERA AE AMPLIFIED PROBE TQ CYANOCOBA 12562 YAZIDI YAZIDI ALFREDO [address] [place] [address] VITAMIN [facility] B-12 GENERAL 30909 YAZIDI YAZIDI [place] [address] HEALTH HEALTH PANEL [facility] LIPID 88132 YAZIDI [address]IDI [address] HEMOGLOBI [address] YAZIDI YAZIDI [address] GLYCOSYLA [facility] DOROTHY A1C CULTURE 29847 LAB [facility] LAB FANAT BACTERIAL 7 ELIZABETH ELIZABETH HOLDINGS HOLDINGS QUANTTATI VE COLONY COUNT URINE RADEX 18319 [facility] [place] SCALF ABDOMEN 1 7 RADIOLOGY ANTEROPOS TERIOR VIEW INJECTION J1050 [facility] MED[facility]PR HLTH DEPT HLTH DEPT OGESTERON KIERA KIERA E ACETATE 1 MG GROUND A0425 [facility] MILEAGE 7 FAY[place] FAYETTE PER [facility]AN STATUTE COGOVT COGOVT MILE APPL 64830 NONA NONA MODALITY 7 1/> AREAS ULTRASOUN D EA 15 MIN AMB A0427 [facility] SERVICE 7 FAYETTE FAYET[place] ALS [facility] EMERGENCY [place] [address] [facility] HEAD/BRAI 7 RADIOLOGY N W/O ASSOC CONTRAST MATERIAL CHIROPRAC 99415 NONA ONNA TIC 7 MANIPULAT [place] SPINAL 1-2 REGIONS APPL 77133 NONA NONA MODALITY 7 1/> AREAS ELEC STIMJ UNATTENDE D INITIAL 82421 [facility] 7 HEALTH ON MEDICAL CARE/DAY GROUP 70 [facility] G0378 [facility] 7 HEALTH HEALTH ON [facility] SERVICE PER HOUR CHIROPRAC 05882 NONA NONA TIC 7 MANIPULAT [place] SPINAL 1-2 REGIONS APPL 03278 NONA NONA MODALITY 7 1/> AREAS ELEC STIMJ UNATTENDE D APPL 89582 NONA NONA MODALITY 7 1/> AREAS ULTRASOUN D EA 15 MIN APPL 21132 NONA NONA MODALITY 7 1/> AREAS ULTRASOUN D EA 15 MIN CHIROPRAC 13519 NONA NONA TIC 7 MANIPULAT [place] SPINAL 1-2 REGIONS APPL 28403 NONA NONA MODALITY 7 1/> AREAS ELEC STIMJ UNATTENDE D IAADIADOO 78713 VELIA BARNETT [address] [place] [address] MIMI LE STREPTOCO 7 [facility] CCUS INC INC GROUP A IAADI 62577 MIMI LE INFLUENZA 7 [facility] B VIRUS INC INC IAADI 88665 MIMI LE INFFLUENZ 7 [facility] A A VIRUS INC INC CUL BACT 80259 MIMI LE XCPT 7 [facility] URINE INC INC BLOOD/STO OL AEROBIC ISOL RADIOLOGI 20490 MIMI LE C EXAM 7 [facility] CHEST 2 INC INC VIEWS FRONTAL&L ATERAL ANTIBODY 11563 [facility] TREPONEMA 7 [facility] DEPT KIERA KIERA IADNA 17214 [facility] NEISSERIA [address] [facility] DEPT GONORRHOE KIERA KIERA AE AMPLIFIED PROBE TQ INJECTION J1050 [facility] MED[facility]XYPR [facility] DEPT OGESTERON KIERA KIERA E ACETATE 1 MG IADNA 24742 [facility] CHLAMYDIA [address] [facility] DEPT TRACHOMAT KIERA KIERA IS AMPLIFIED PROBE TQ IAADIADOO 83388 VELIA LEZAMA 7 CLINIC STREPTOCO CCUS GROUP A RADEX 77672 [facility] RIBS 6 DARRIN PAT UNILATERA EMERGENCY L 2 VIEWS PHYS RADEX 09858 [facility] [place] RADHA ELBOW 6 RADIOLOGY COMPLETE MINIMUM 3 VIEWS RADIOLOGI 03008 [facility] [place] C 6 RADIOLOGY RADIOLOGY EXAMINATI ON KNEE 3 VIEWS INJECTION J1050 [facility] 6 [facility] MEDROXYPR [facility] DEPT OGESTERON KIERA KIERA E ACETATE 1 MG INJECTION J1050 [facility] 6 [facility] MEDROXYPR [facility] DEPT OGESTERON KIERA KIERA E ACETATE 1 MG CONTRACEP A4267 [facility] TIVE 6 [facility] SU[facility]PLY [facility] DEPT CONDOM KIERA KIERA MALE EACH INJECTION J1100 VELIA BARNETT 6 [facility] DEXAMETHO SONE SODIUM PHOSPHATE 1 MG THERAPEUT 46807 VELIA BARNETT IC 6 [facility] PROPHYLAC TIC/DX INJECTION SUBQ/IM THER 08864 KASI VILLASEÑOR PROPH/DX 6 [facility] PUSH SINGLE/1S T SBST/DRUG THERAPEUT 86208 KASI VILLASEÑOR IC [address] [place] [address] INJECTION [facility] IV PUSH EACH NEW DRUG INJ J2930 KASI VILLASEÑOR METHYLPRD [address] [place] [address] SODIUM SUCCNAT TO 125 MG CONTRACEP A4267 [facility] TIVE 6 [facility] SUPPLY [facility] DEPT [facility] DEPT CONDOM KIERA KIERA MALE EACH IADNA 67926 [facility] NEISSERIA [address] [place] [address] DEPT [facility] DEPT GONORRHOE KIERA KIERA AE AMPLIFIED PROBE TQ IADNA 16913 VANNESSACO [facility] CHLAMYDIA [address] [place] [address] DEPT [facility] DEPT TRACHOMAT KIERA KIERA IS AMPLIFIED PROBE TQ INJECTION J1885 [facility] [address] [place] [address] KETOROLAC [facility] TROMETHAM INE PER 15 MG THERAPEUT 23408 KASI VILLASEÑOR IC [address] [place] [address] PROPHYLAC [facility] TIC/DX INJECTION SUBQ/IM RADEX 09349 [facility] [place] SCALF FERMÍN NASAL 6 RADIOLOGY BONES COMPLETE MINIMUM 3 VIEWS BLOOD 23409 KASI VILLASEÑOR COUNT [address] [place] [address] AUTO&AUTO DIFRNTL WBC COLLECTIO 68922 KASI VILALSEÑOR N VENOUS [address] [place] [address] VENIPUNCT URE COMPREHEN 92962 KASI VILLASEÑOR SIVE [address] [place] [address] HOSPITAL PANEL CYANOCOBA 30083 LAB [facility]ANT[facility] ALFREDO 6 ELIZABETH ELIZABETH VITAMIN HOLDINGS [place] B-[address] [place] [address] LAB FANTA [facility] FOLIC 6 ELIZABETH ELIZABETH ACID HOLDINGS HOLDINGS SERUM IAADIADOO 43356 VELIA GUNN [address] [place] [address] STREPTOCO CCUS GROUP A BASIC 44334 LAB [facility] METABOLIC 6 ELIZABETH ELIZABETH PANEL HOLDINGS HOLDINGS CALCIUM TOTAL ANES 75956 MATILDE JEAN UPPER GI 6 ANESTHESI ENDOSCOPY A GROUP PROXIMAL PS TO DUODENUM INJECTION J1050 [facility] [address] [place] [address] MEDROXYPR HLTH DEPT HLTH DEPT OGESTERON KIERA KIERA E ACETATE 1 MG URINE 34351 VELIA VELIA 6 CLINIC CLINIC TEST VISUAL COLOR CMPRSN METHS GENERAL 77600 LAB [facility] HEALTH 6 ELIZABETH ELIZABETH PANEL HOLDINGS HOLDINGS HPYLORI 20171 [facility] BREATH 6 ELIZABETH ELIZABETH ANAL HOLDINGS HOLDINGS UREASE ACT NON-RADAC T ISTOPE CYANOCOBA 26000 LAB [facility] FANT[facility] ALFREDO 6 ELIZABETH ELIZABETH VITAMIN HOLDINGS [place] B-[address] [place] [address] LAB [facility]ANT[facility] LIPASE 6 ELIZABETH [place] [address] LAB FANTA LAB FANT[facility] FREE 6 ELIZABETH EILZABETH [place]RO[place] [address] LAB FANTA LAB FANTA FOLIC 6 ELIZABETH ELIZABETH [place] [address] LAB FANTA LAB FANTA AMYLASE 6 ELIZABETH ELIZABETH HOLDINGS HOLDINGS IAADIADOO 09271 HATTIE RESENDIZ 5 [facility] STREPTOCO URGENT CCUS TREAT GROUP A CONTRACEP A4267 [facility] TIVE 5 [facility] SUPPLY [facility] DEPT [facility] DEPT CONDOM KIERA KIERA MALE EACH INJECTION J1050 [facility] [address] [place] [address] MEDROXR [facility] DEPT [facility] DEPT OGESTERON KIERA KIERA E ACETATE 1 MG LARYNGOSC 67666 EAR, NOSE SHASHY OPY 5 AND MIRANDA FLEXIBLE THROAT DIAGNOSTI SPECIAL C IAADIADOO 82317 HATTIE RESENDIZ [address] [place] [address] [place] [address] [facility] [place] CORBIN JAM ABDOMEN & 5 RADIOLOGY PELVIS W/O CONTRAST MATERIAL CONTRACEP A4267 [facility] TIVE 5 [facility] SUPPLY [facility] DEPT [facility] DEPT CONDOM KIERA KIERA MALE EACH URINE 63747 [facility] TEST TH DEPT [facility] DEPT VISUAL KIERA KIERA COLOR CMPRSN METHS IADNA 14394 [facility] CHLAMYDIA 5 [facility] DEPT [facility] DEPT TRACHOMAT KIERA KIERA IS AMPLIFIED PROBE TQ INJECTION J1050 [facility] 5 [facility] MEDROXYPR TH DEPT HLTH DEPT OGESTERON KIERA KIERA E ACETATE 1 MG IADNA 44110 [facility] GONORRHOE KIERA KIERA AE AMPLIFIED PROBE TQ RADEX 11359 MIMI LE ANKLE 5 [facility] COMPLETE INC INC MINIMUM 3 VIEWS CRTCHS E0114 [facility]VANCED ADVANCED UNDARM 5 TECHNOLOG TECHNOLOG OTH THAN IES INC IES INC WOOD PAIR PAD TIP&HNDGR IP BLOOD 26207 KASI [place] COUNT [address] [place] [address] AUTO&AUTO DIFRNTL WBC URNLS DIP 81569 [facility] [place] [address] [place] [address] [facility] HOSPITAL LET REAGENT AUTO MICROSCOP Y THERAPEUT 62228 [facility] VILLASEÑOR IC [address] [place] [address] INJECTION [facility] [place] [address] [facility] ABDOMEN & [address] [place] [address] PELVIS [facility] W/O CONTRAST MATERIAL THER 86008 [facility] VILLASEÑOR PROPH/DX [address] [place] [address] HOSPITAL HOSPITAL PUSH SINGLE/1S T SBST/DRUG CULTURE 73907 [facility] BACTERIAL [address] [place] [address] QUANTTATI VE COLONY COUNT URINE URINE 80657 KASI VILLASEÑOR [address] [place] [address] VISUAL COLOR CMPRSN METHS INJECTION J1885 [facility] [address] [facility] TROMETHAM INE PER 15 MG COLLECTIO 65495 [facility] VILLASEÑOR N VENOUS [address] [place] [address] BLOOD [facility] VENIPUNCT URE COMPREHEN 48524 [facility] VILLASEÑOR SIVE [address] [place] [address] METABOLIC [facility] [address] [facility] AMYLASE [address] [place] [address] INJECTION J2405 [facility] [place] [address] [place] [address] ON HCL [address] [place] [address] [facility] [place] HAHEENABRAHI ANGIOGRAP 5 RADIOLOGY M DHAVAL HY CHEST W/CONTRAS T/[place] [address] [facility] [place] CORBIN JAM CERVICAL 5 RADIOLOGY SPINE W/O CONTRAST MATERIAL CT ANGIO 08150 [facility] [place] ROJAS ABD&PLVIS 5 RADIOLOGY JOSE CNTRST MTRL W/WO CNTRST IMG RADIOLOGI 17992 [facility] [place] ROJAS C 5 RADIOLOGY JOSE EXAMINATI ON PELVIS 1/[address] LUMBAR 17385 [facility] [place] CORBIN JAM SPINE 5 RADIOLOGY W/O CONTRAST MATERIAL GROUND A0425 HATTIE KUHN MILEAGE [address] [place] [address] PER AMBULANCE AMBULANCE STATUTE SE SE MILE RADIOLOGI 89765 [facility] [place] ROJAS C 5 RADIOLOGY JOSE EXAMINATI ON CHEST SINGLE VIEW FRONTAL AMB A0427 HATTIE KUHN SERVICE [address] [place] [address] ALS AMBULANCE AMBULANCE EMERGENCY SE [place] [address] [place] [facility] HEAD/BRAI 5 MEDICAL NANI N W/[place] [address] [place] [facility] CERVICAL 5 MEDICAL NANI SPINE W/[place] [address] [facility] [place] RUSSEL TRANSVAGI 5 RADIOLOGY RHO NAL COLLECTIO 51276 [place] N VENOUS [address] [place] [address] VENIPUNCT URE COMPREHEN 94847 [place] SIVE [address] [place] [address] [place] [address] [place] AMYLASE [address] [place] [address] BLOOD 18686 [place] COUNT [address] [place] [address] AUTO&AUTO DIFRNTL WBC URINE 56111 [place] [address] [place] [address] VISUAL COLOR CMPRSN METHS URNLS DIP 79708 [place] [address] [place] [address] [facility] HOSPITAL LET [place] [address] [place] LIPASE [address] [place] [address] [place] [address] [place] ABDOMEN & 5 [facility] PELVIS [facility] W/O CONTRAST MATERIAL NITRIC 91647 INGE INGE OXIDE 5 CHAD CHAD GAS DETERMINA TION BRNCDILAT 58993 INGE INGE RSPSE 5 CHAD BONILLA SPMTRY PRE&POST- BRNCDILAT ADMN PRESSURIZ 50292 INGE INGE ED/NONPRE 5 CHAD BON[place]A SSURIZED INHALATIO N TREATMENT PREPJ& 99151 INGE INGE ALLERGEN 4 CHAD B[place] IMMUNOTHE RAPY 1/STEM SIZER ANTIGEN INITIAL 87024 RACHEL RAMOS OBSERVATI 4 SOY SOY ON CARE/DAY 50 MINUTES RADIOLOGI 15745 MIMI LE C EXAM 4 [facility] CHEST 2 INC INC VIEWS FRONTAL&L ATERAL PROTEIN 20445 LAB [facility]ANT[facility] LAB [facility]ANT[facility] XCPT 4 ELIZABETH ELIZABETH REFRACTOM HOLDINGS HOLDINGS ETRY SERUM PLASMA/WH L BLD SODIUM 05138 LAB FANAT LAB FANTA SERUM 4 ELIZABETH ELIZABETH PLASMA OR HOLDINGS HOLDINGS WHOLE BLOOD BILIRUBIN 32860 LAB [facility] LAB [facility]ANT[facility] TOTAL 4 ELIZABETH ELIZABETH HOLDINGS HOLDINGS CALCIUM 28321 LAB [facility] TOTAL 4 ELIZABETH ELIZABETH HOLDINGS HOLDINGS TRANSFERA 39884 LAB F[facility] LAB [facility]ANT[facility] SE 4 ELIZABETH ELIZABETH ASPARTATE HOLD[place] [address] LAB FANTA LAB [facility]ANT[facility] UREA 4 [facility] NITROGEN HOLDINGS HOLDINGS QUANTITAT MORENITA COLLECTIO 35796 VELIA LEZAMA LASHON N VENOUS 4 CLINIC BLOOD VENIPUNCT URE BLOOD 77032 LAB [facility]ANT[facility] LAB FANTA COUNT 4 ELIZABETH ELIZABETH COMPLETE HOLDINGS HOLDINGS AUTO&AUTO DIFRNTL WBC ALBUMIN 18764 LAB [facility] LAB FANT[facility] SERUM 4 ELIZABETH ELIZABETH PLASMA/WH HOLDINGS HOLDINGS OLE BLOOD GLUCOSE 26483 LAB [facility]ANT[facility] LAB FANTA QUANTITAT 4 ELIZABETH ELIZABETH MORENITA BLOOD HOLDINGS HOLDINGS XCPT REAGENT STRIP CHLORIDE 82293 LAB [facility]ANT[facility] BLD 4 ELIZABETH ELIZABETH HOLDINGS HOLDINGS CREATININ 58571 LAB [facility]ANT[facility] E BLOOD 4 ELIZABETH [place] [address] LAB FANTA LAB FANTA PHOSPHATA 4 ELIZABETH ELIZABETH SE HOLDINGS HOLDINGS ALKALINE POTASSIUM 58620 LAB [facility]ANT[facility] LAB FANT[facility] SERUM 4 ELIZABETH ELIZABETH PLASMA/WH HOLDINGS HOLDINGS OLE BLOOD IAADIADOO 42135 MEANS BUTROS 4 ADULT MARISEL STREPTOCO PRIMARY CCUS CARE CLI GROUP A INJECTION J1040 INTEGRITY RICHARDS, 4 JR. JAM METHYLPRE ORTHOPAED DNISOLONE ICS SPORT ACETATE 80 MG ARTHROCEN 11063 INTEGRITY RICHARDS, TESIS 4 JR. JAM ASPIR&/IN ORTHOPAED J MAJOR ICS SPORT JT/BURSA W/[place] ANY [address] [facility] [place] ROJAS JT LOWER 4 RADIOLOGY JOSE EXTREM W/O CONTRAST MATRL RADEX 05055 [facility] [place] SHOULDER 4 MEDICAL NANI COMPLETE IMAGING MINIMUM 2 ASS VIEWS SLINGS A4565 [employer]. 4 THERAPEUT 11488 VELIA SCHMITZ- IC 4 [facility] PROPHYLAC TIC/DX INJECTION SUBQ/IM DEMO&/KERWIN 73301 VELIA SCHMITZ- L OF PT 4 [facility] UTILIZ AERSL GEN/NEB/I NHLR/IP INJECTION J0696 VELIA SCHMITZ- 4 [facility] CEFTRIAXO NE SODIUM PER 250 MG IPRATROPI J7644 VELIA SCHMITZ- UM 4 [facility] BROMIDE INHAL NON-CP U DOSE PER MG ALBUTEROL J7609 VELIA SCHMITZ- INHAL CP 4 [facility] PROD THRU DME UNIT DOSE 1 MG PRESSURIZ 76133 VELIA SCHMITZ- ED/NONPRE 4 [facility] SSURIZED INHALATIO N TREATMENT INJECTION J1030 VELIA SCHMITZ- 4 [facility] METHYLPRE DNISOLONE ACETATE 40 MG MANUAL 54811 SCHULTE CHR SCHULTE CHR THERAPY 4 TQS 1/> REGIONS EACH 15 MINUTES THERAPEUT 52863 SCHULTE CHR SCHULTE CHR IC PX 1/> 4 AREAS EACH 15 MIN EXERCISES THERAPEUT 67514 SCHULTE CHR SCHULTE CHR IC PX 1/> 4 AREAS EACH 15 MIN EXERCISES MANUAL 56823 SCHULTE CHR SCHULTE CHR THERAPY 4 TQS 1/> REGIONS EACH 15 MINUTES MANUAL 63555 SCHULTE CHR SCHULTE CHR THERAPY 4 TQS 1/> REGIONS EACH 15 MINUTES THERAPEUT 66608 SCHULTE CHR SCHULTE CHR IC PX 1/> 4 AREAS EACH 15 MIN EXERCISES THERAPEUT 44002 SCHULTE CHR SCHULTE CHR IC PX 1/> 4 AREAS EACH 15 MIN EXERCISES MANUAL 11018 SHCULTE CHR SCHULTE CHR THERAPY 4 TQS 1/> REGIONS EACH 15 MINUTES MANUAL 08131 SCHULTE CHR SCHULTE CHR THERAPY 4 TQS 1/> REGIONS EACH 15 MINUTES THERAPEUT 94096 SCHULTE CHR SCHULTE CHR IC PX 1/> 4 AREAS EACH 15 MIN EXERCISES THERAPEUT 18929 SCHULTE CHR SCHULTE CHR IC PX 1/> 4 AREAS EACH 15 MIN EXERCISES MANUAL 96305 SCHULTE CHR SCHULTE CHR THERAPY 4 TQS 1/> REGIONS EACH 15 MINUTES PHYSICAL 59220 SCHULTE CHR SCHULTE CHR THERAPY 4 EVALUATIO N RADEX 50231 CHATTHA CHATTHA ANKLE 4 SHANNON SHANNON COMPLETE MINIMUM 3 VIEWS ANKLE L1902 [employer] ORTH 4 BRACING BRACING ANK[employer] INC. INC. GAUNT/SIM PREFAB OFF-THE-S HELF RADIOLOGI 93459 CHATTHA KALTHA C 4 SHANNON SHANNON EXAMINATI ON KNEE 1/2 VIEWS COMPRE 49412 [place] [facility] SET AUDIOMETR 4 PHYSICIAN Y PRACTICE THRESHOLD L EVAL SP RECOGNIJ TYMPANOME 78825 [place] [facility] SET TRY 4 PHYSICIAN PRACTICE L CUL BACT 51446 [employer], XCPT 4 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 URINE HATTIE KUHN BLOOD/STO [place] [address] [employer], SHIGA-LIK 4 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 E TOXIN HATTIE HATTIE CO HOS CO HOS OVA&MARVA 62213 [facility], [employer], ITES 4 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 DIRECT HATTIE KUHN SMEARS CO HOS CO HOS CONCENTRA TION & ID BLOOD [address] [facility], COUNT 4 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 COMPLETE HATTIE HATTIE AUTO&AUTO CO HOS CO HOS DIFRNTL WBC LEUKOCYTE [address] [facility], ASSMT 4 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 FECAL HATTIE HATTIE QUAL/SEMI CO HOS CO HOS QUANTITAT MORENITA BLOOD [address] [facility], OCCULT 4 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 PEROXIDAS HATTIE HATTIE E ACTV CO HOS CO HOS QUAL FECES 1 DETER COMPREHEN [address] [facility], SIVE 4 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 METABOLIC HATTIE HATTIE PANEL CO HOS CO HOS SMR PRIM [address] [facility], SRC CPLX 4 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 SPEC HATTIE HATTIE STAIN CO HOS CO HOS OVA&MARVA ITS CUL BACT [address] [facility], STOOL 4 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 AEROBIC HATTIE HATTIE ADDL CO HOS CO HOS PATHOGENS &ID EA CUL BACT [address] [facility], [facility], STOOL 4 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 AEROBIC HATTIE HATTIE ISOL CO HOS CO HOS SALMONELL A&SHIGELL IAADIADOO 06899 [facility] 4 [place] STREPTOCO CCUS GROUP A SPMTRY 84301 INGE INGE W/VC 4 CHAD CHAD EXPIRATOR Y RADHA W/WO MXML VOL VNTJ IAADIADOO 04994 [facility] RESENDIZ 4 NAN NAN [facility] CCUS GROUP A PREPJ& 63618 INGE INGE ALLERGEN 4 CHAD CHAD IMMUNOTHE RAPY 1/STEM SIZER ANTIGEN BASIC 45273 [facility], [facility], METABOLIC 4 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 PANEL HATTIE HATT[place] [address] [facility] [employer]le, [facility], INFUSION 4 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 THERAPY/P HATTIE HATTIE ROPHYLAXI CO HOS CO HOS S /DX 1ST TO 1 HR BLOOD [address] [facility], [facility], COUNT 4 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 COMPLETE HATTIE HATTIE AUTO&AUTO CO HOS CO HOS DIFRNTL WBC RADIOLOGI [address] [facility], [facility], C EXAM 4 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 CHEST 2 HATTIE HATTIE VIEWS CO HOS CO HOS FRONTAL&L ATERAL PRESSURIZ 60742 [employer], ED/NONPRE 4 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 SSURIZED HATTIE KUHN INHALATIO CO HOS CO HOS N TREATMENT THER 28949 [employer], PROPH/DX 4 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 NJX IV HATTIE KUHN PUSH CO HOS CO HOS SINGLE/1S T SBST/DRUG IIV3 48106 [facility] VACCINE 4 [place] SPLIT VIRUS 0.5 ML DOSAGE IM USE PROF SVCS 35477 INGE INGE ALLG 4 CHAD CHAD IMMNTX X W/PRV ALLGIC XTRCS NJXS PREPJ& 04554 INGE INGE ALLERGEN 4 CHAD CHAD IMMUNOTHE RAPY 1/STEM SIZER ANTIGEN PERCUTANE 43751 INGE INGE OUS TESTS 3 CHAD CHAD W/ALLERGE KIERA EXTRACTS INTRACUTA 07719 INGE INGE NEOUS 3 CHAD CHAD TESTS W/ALLERGE KIERA EXTRACTS SPMTRY 49441 INGE INGE W/VC 3 CHAD CHAD EXPIRATOR Y RADHA W/WO MXML VOL VNTJ URNLS DIP 13196 [facility] 3 [place] STICK/TAB LET RGNT AUTO W/O MICROSCOP Y RADEX 15521 NELLIE BALLARD FOOT 3 EIDER LASHON [facility]ER [place] COMPLETE MINIMUM 3 VIEWS RADEX 91969 NELL[facility] BALLARD ANKLE 3 EIDER LASH[place] E[place]ER [place] COMPLETE MINIMUM 3 VIEWS OPHTH 84744 [facility] MEDICAL 3 GRE GRE XM&EVAL COMPRE NEW PT 1/> VST SPMTRY 66303 INGE INGE W/VC 3 CHAD CHAD EXPIRATOR Y RADHA W/WO MXML VOL VNTJ DETERMINA 93161 [facility] TION 3 GRE GRE REFRACTIV E STATE RADEX 45469 [employer], FOOT 3 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 COMPLETE HATTIE KUHN MINIMUM 3 CO HOS CO HOS VIEWS BRNCDILAT 85989 INGE INGE RSPSE 3 CHAD BONILLA SPMTRY PRE&POST- BRNCDILAT ADMN SPACR A4627 MT MED MT MED BAG/RESRV 3 EQUIPMENT EQUIPMENT OR W/WO INC INC MASK W/METRD DOSE INHAL LEVEL III 86547 TANIA MARIN, SURG 3 JR EDW JR EDW PATHOLOGY GROSS&JANA ROSCOPIC EXAM LAPAROSCO 62081 MAKAYLA JR MAKAYLA JR PY SURG 3 KASSANDRA KASSANDRA CHOLECYST ECTOMY PRESSURIZ 34625 [facility]PRE 3 [facility] INHALATIO N TREATMENT ANES 55445 SIENNA ANT SIENNA ANT INTRAPERI 3 TONEAL UPPER ABDOMEN W/LAPS NOS URINE 63669 [facility] 3 [facility] VISUAL COLOR CMPRSN METHS COLLECTIO 28732 [facility] N VENOUS 3 [facility] VENIPUNCT URE COMPREHEN 65382 [facility] 3 [facility] PANEL BLOOD 67196 [facility] COUNT 3 [facility] AUTO&AUTO DIFRNTL WBC HEPATOBIL 14375 RUSSEL RUSSEL SYST 3 RHO RHO IMAG INC GB W/[place] [address] [employer], AMYLASE 3 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 [facility]ATTIE [facility]OS COMPREHEN 06288 [employer], SIVE 3 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 METABOLIC HATTIE HATTIE PANEL CO HOS CO HOS BLOOD 12354 [employer], COUNT 3 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 COMPLETE HATTIE HATTIE AUTO&AUT[place] [address] CHAWLA CHAWLA ABDOMINAL 3 FERMÍN FERMÍN REAL TIME W/IMAGE LIMITED NEBULIZER [id number] DANGELO PIERSON WITH 3 HOME HOME COMPRESSO MEDICAL MEDICAL R EQUIPME EQUIPME ADMN SET A7003 YOUR YOUR SM VOL 3 PHARMACY PHARMACY NONFILTR [facility] PNEUMAT NEBULIZR DISPBL RADIOLOGI 90021 NELLIE BALLARD C EXAM 3 JET OATES CHEST 2 VIEWS FRONTAL&L ATERAL RADIOLOGI 87448 NELLIE BALLARD C EXAM 3 JET OATES CHEST 2 VIEWS FRONTAL&L ATERAL INJECTION J2250 [facility] 3 Y Y MIDAZOLAM [facility] HCL PER 1 MG EXC TUMOR 18031 ADLER ADLER SOFT 3 TONYA TONYA TISS NECK/THOR AX SUBFASCIA L <5CM ANES 79823 HOWARD JANA HOWARD JANA INTEG 3 MUSC & NRV HEAD NECK&POST ERIOR TRUNK BX/EXC 47840 [facility] LYMPH 3 Y Y NODE OPEN [facility] DEEP CERVICAL NODE INJECTION J1100 [facility] 3 Y Y DEXAMETHO [facility] SONE SODIUM PHOSPHATE 1 MG RINGERS J7120 [facility] LACTATE 3 Y Y INFUSION [facility] UP TO [address] [place] [address] [facility] SURG 3 Y Y PATHOLOGY [facility] GROSS&JANA ROSCOPIC EXAM INJECTION J2405 [facility] 3 Y Y [facility] ON HCL PER 1 MG URINE 05495 [facility] 3 Y Y TEST [facility] VISUAL COLOR CMPRSN METHS INJECTION J3010 [facility] FENTANYL 3 Y Y CITRATE [facility] 0.1 MG INFUSION J7030 [facility] NORMAL 3 Y Y SALINE [facility] SOLUTION 1000 CC GONADOTRO 79247 [facility] [employer], [employer], PIN 3 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 CHORIONIC HATTIE KUHN CO HOS CO HOS QUALITATI VE BLOOD 79627 [employer], COUNT 3 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 COMPLETE HATITE KUHN AUTO&AUTO CO HOS CO HOS DIFRNTL WBC HEMOGLOBI 18982 [employer], [facility] INC, N 3 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 GLYCOSYLA HATTIE KUHN DOROTHY A1C CO HOS CO HOS THYROID 04490 [employer], HORM 3 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 UPTK/THYR HATTIE KUHN OID CO HOS CO HOS HORMONE BINDING RATIO BLOOD 68619 [employer], [employer], COUNT 3 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 COMPLETE HATTIE HATTIE AUTO&[place] [address] [employer], [employer], EXTREMITY 3 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 NON-VASC HATTIE HATTIE CO HOS CO HOS REAL-TIME IMG COMPL US SOFT 38427 HAGENSCHN HAGENSCHN TISSUE 3 EIDER LASHON EIDER LASHON HEAD & [place] [address] [employer], THYROXINE 3 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 TOTAL HATTIE HATTIE CO HOS CO HOS COMPREHEN 27954 [employer], [employer], SIVE 3 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 METABOLIC HATTIE HATT[place] [address] [employer], FREE 3 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 THYROXINE [place] [address] [employer], INSULIN 3 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 TOTAL [place] [address] [employer], [employer], THYROID 3 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 STIMULATI HATTIE HATTIE [place] [address] [facility] CERVICAL 2 ANIBAL SPINE W/O RADIOLOGY CONTRAST ASSOCIAT MATERIAL AMBULANCE A0429 [facility] SERVICE 2 AMBULETT AMBULETT BLS & & EMERGENCY AMBULANC AMBULANC TRANSPORT GROUND A0425 [facility] MILEAGE 2 AMBULETT AMBULETT PER & & STATUTE AMBULANC AMBULANC MILE COLONOSCO 68404 [facility] PY 2 Y Y W/BIOPSY [facility] SINGLE/MU LTIPLE RINGERS J7120 [facility] LACTATE 2 Y Y INFUSION [facility] UP TO 1000 CC ANES 22249 [place] [facility] 2 MEDICAL ALB INTESTINE SERVICES ENDOSCOPY DISTAL DUODENUM EGD 53454 [facility] TRANSORAL 2 Y Y BIOPSY [facility] SINGLE/MU LTIPLE INJECTION J2250 [facility] 2 Y Y MIDAZOLAM [facility] HCL PER 1 MG CUL BACT 75093 [facility] PIPPA 2 Y Y ANAERC [facility] ISOL XCPT UR BLOOD/[place] [address] [facility] SURG 2 Y Y PATHOLOGY [facility] GROSS&JANA ROSCOPIC EXAM INJECTION J3010 [facility] FENTANYL 2 Y Y CITRATE [facility] 0.1 [place] [address] [facility] INC, [facility] INC, CLOSTRIDI 2 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 UM HATTIE REILLYS DIFFICILE CO HOS CO HOS TOXIN FAT/LIPID 72936 [facility] INC, [facility] INC, S FECES 2 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 QUALITATI HATTIE [place] [address] [facility] INC, [facility] INC, MULT STEP 2 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 METHOD HATTIE KUHN NOS EACH CO HOS CO HOS ORGANISM RADEX 58748 [facility] INC, [facility] INC, FOOT 2 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 COMPLETE HATTIE KUHN MINIMUM 3 CO HOS CO HOS VIEWS COMPREHEN 35635 [facility] SIVE 2 Y Y [facility] [place] [address] [facility] THYROID 2 [facility] T[facility] C-REACTIV 24397 [facility] E PROTEIN 2 Y Y [facility] BLOOD 39300 [facility] COUNT 2 Y Y [facility] [place] [address] [facility] GAMMAGLOB 2 Y Y [facility] IGD IGG IGM EACH IMMUNOASS 46593 [facility] AY 2 Y Y ANALYTE [facility] QUAL/SEMI QUAL MULTIPLE STEP SIMPLE 95340 HATTIE BROOKS REPAIR 2 CO DIOGENES F/E/E/N/L HOSPITAL /M 2.5CM/< RADEX 20615 [facility] SPINE 2 [facility] THORACIC RADIOLOGY 2 VIEWS ASSOCIAT THERAPEUT 01121 [facility] [employer], [facility] INC, IC 2 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 PROPHYLAC HATTIE HATTIE TIC/DX CO HOS CO HOS INJECTION SUBQ/IM INJECTION J2001 [facility] INC, [facility] INC, 2 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 LIDOCAINE HATTIE HATTIE HCL CO HOS CO HOS INTRAVENO US INFUS 10 MG GONADOTRO 45981 [facility] INC, [facility] INC, PIN 2 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 CHORIONIC HATTIE HATTIE CO HOS CO HOS QUALITATI VE SIMPLE 46628 [employer], REPAIR 2 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 F/E/E/N/L HATTIE KUHN /M CO HOS CO HOS 2.5CM/< RADEX 65952 [place] [facility] SPINE 2 EIDER LASHON LUMBOSACR RADIOLOGY AL 2/[place] [address] [place] CERVICAL 2 ANIBAL SPINE W/O RADIOLOGY CONTRAST ASSOCIAT MATERIAL INJECTION J1885 [employer], 2 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 KETOROLAC HATTIE KUHN CO HOS CO HOS TROMETHAM INE [place] 15 [place] [address] MD DIEGO CORTEZ MD TRANSVAGI 2 STEPHEN STEPHEN NAL HEPATOBIL 71162 [facility] [place] [facility] SYST 2 RADIOLOGY IMAG INC GB W/PHARMA INTERVENJ BASIC 18107 [facility] METABOLIC 2 [facility] CALCIUM TOTAL URINE 18977 [place] [facility] 2 [facility] VISUAL COLOR CMPRSN METHS COLLECTIO 45752 KASI ANTHONY N VENOUS 2 [facility] VENIPUNCT URE THER 90482 [facility] PROPH/DX 2 [facility] SINGLE/1S T SBST/[place] [address] [facility] [place] RADHA MAT ABDOMEN & 2 RADIOLOGY PELVIS W/O CONTRAST MATERIAL BLOOD 09006 [facility] 2 [facility] AUTO&AUTO DIFRNTL WBC URNLS DIP 61949 [facility] 2 [facility] STICK/TAB [facility] HOSPITAL LET REAGENT AUTO MICROSCOP Y URINLS 06120 JEFE MAYBERRY DARRION DIP 2 STICK/TAB LET REAGNT NON-AUTO MICRSCPY CYTP C/V 51305 PATHOLOGY PICKLESIM AUTO THIN 2 & ER JR RADAMES LYR CYTOLOGY PREPJ SCR LAB MNL RESCR PHYS URINLS 83056 JEFE MAYBERRY DARRION DIP 2 STICK/TAB LET REAGNT NON-AUTO MICRSCPY IAADIADOO 02417 JEFE MAYBERRY DARRION 1 STREPTOCO CCUS GROUP A COLLECTIO 19235 JEFE MAYBERRY DARRION N VENOUS 1 BLOOD VENIPUNCT URE GENERAL 51690 [facility] 1 AMERIC [place] [address] [facility] THYROXINE 1 AMERIC AMERIC TOTAL HOLDINGS HOLDING THYROID 47892 [facility] HORM 1 AMERIC AMERIC UPTK/THYR HOLDINGS HOLDING OID HORMONE BINDING RATIO RADEX 19948 [facility] ELBOW 1 FERMÍN COMPLETE RADIOLOGY MINIMUM 3 [place] [address] MD DIEGO CORTEZ MD TRANSVAGI 1 [place] [address] [facility] LIPASE 1 Y Y [facility] THER 00038 [facility] PROPH/DX 1 Y Y NJX IV [facility] PUSH SINGLE/1S T SBST/DRUG RINGERS J7120 [facility] LACTATE 1 Y Y INFUSION [facility] UP TO 1000 CC BLOOD 63761 [facility] COUNT 1 Y Y COMPLETE [facility] AUTO&AUTO DIFRNTL WBC THERAPEUT 47740 [facility] IC 1 Y Y INJECTION [facility] IV PUSH EACH NEW DRUG INJECTION J2270 [facility] MORPHINE 1 Y Y SULFATE [facility] [place] 10 [place] [address] [facility] INFUSION 1 Y Y HYDRATION [facility] EACH ADDITIONA L HOUR COMPREHEN 43029 [facility] SIVE 1 Y Y METABOLIC [facility] PANEL URNLS DIP 48358 [facility] 1 Y Y STICK/TAB [facility] LET RGNT AUTO W/O MICROSCOP Y INJECTION J2405 [facility] 1 Y Y ONDANSETR [facility] ON HCL PER 1 MG US PELVIC 58323 [place] ANNE 1 MEDICAL [place] NONOBSTET SERV FERMÍN FOUNDATIO REAL-TIME IMAGE COMPLETE [facility] 64019 [facility] V[facility] DISCHARGE 1 OSI OSI DAY MANAGEMEN T > 30 MIN INFUSION J7030 [facility] NORMAL 1 Y Y SALINE [facility] SOLUTION 1000 CC DUP-SCAN 51775 [facility] ARTL RADHA 1 Y Y ABDL/PEL/ HOSPITAL HOSPITAL SCROT&/RP R ORGN COM URINE 15799 HATTIE KUHN 1 CO CO TEST [facility] HOSPITAL VISUAL COLOR CMPRSN METHS SBSQ 46354 [facility] 1 DREAD DREAD CARE/DAY 25 MINUTES INITIAL 05714 [facility] 1 OSI OSI CARE/DAY 70 MINUTES INJECTION J2550 HATTIE KUHN 1 CO CO [facility] INE HCL [place] 50 [place] [address] HATTIE KHUN INFUSION 1 CO CO THERAPY/P [facility] ROPHYLAXI S /DX 1ST TO 1 HR BLOOD 55300 HATTIE KUHN COUNT 1 CO CO COMPLETE [facility] AUTO&AUTO DIFRNTL WBC URNLS DIP 92994 HATTIE KUHN 1 CO CO STICK/TAB HOSPITAL HOSPITAL LET REAGENT AUTO MICROSCOP Y BASIC 52714 HATTIE KUHN METABOLIC 1 CO CO PANEL [facility] G0378 HATTIE KUHN OBSERVATI 1 CO CO ON HOSPITAL HOSPITAL SERVICE PER HOUR URINE 60438 [place] 1 [facility] VISUAL COLOR CMPRSN METHS BLOOD 86144 [place] COUNT 1 [facility] AUTO&AUTO DIFRNTL WBC URNLS DIP 27517 [place] 1 [facility] STICK/TAB HOSPITAL HOSPITAL [place] [address] [facility] ABDOMEN & 1 RADIOLOGY ANIBAL PELVIS W/CONTRAS T MATERIAL COLLECTIO 26295 [place] N VENOUS 1 [facility] VENIPUNCT URE COMPREHEN 82154 [place] SIVE 1 [facility] PANEL THER 28779 [place] PROPH/DX 1 [facility] NJX IV [facility]OSPITAL PUSH SINGLE/1S T SBST/DRUG RADEX 63459 HATTIE KUHN HAND 1 CO CO MINIMUM 3 HOSPITAL HOSPITAL VIEWS APPLICATI 03573 HATTIE KUHN ON FINGER 1 CO CO SPLINT [facility] STATIC IAADIADOO 97649 [facility] 1 MEDICAL STREPTOCO CLINIC CCUS GROUP A PRESSURIZ 65942 HATTIE KUHN ED/NONPRE 0 CO CO SSURIZED [facility] INHALATIO N TREATMENT HOSPITAL 63811 [facility] DISCHARGE 0 DREAD DREAD DAY MANAGEMEN T 30 MIN/< SMR PRIM 97722 HATTIE KUHN SRC 0 CO CO GRAM/GIEM [facility] SA STAIN BCT FUNGI/DARELL L CUL BACT 19592 HATTIE KUHN XCPT 0 CO CO URINE [facility] BLOOD/STO OL AEROBIC ISOL BLOOD 21539 HATTIE KUHN COUNT 0 CO CO SMEAR [facility] MCRSCP W/MNL DIFRNTL WBC COUNT URNLS DIP 97941 HATTIE KUHN 0 CO CO STICK/TAB [facility] LET REAGENT AUTO MICROSCOP Y ELECTROLY 91678 HATTIE KUHN TE PANEL 0 CO CO [facility] US PELVIC 91231 HATTIE KUHN 0 CO CO NONOBSTET [facility] FERMÍN REAL-TIME IMAGE COMPLETE PRESSURIZ 16641 HATTIE KUHN ED/NONPRE 0 CO CO SSURIZED [facility] INHALATIO N TREATMENT INITIAL 77978 [facility] 0 DREAD DREAD CARE/DAY 50 MINUTES COLLECTIO 14241 HATTIE Jiménez VENOUS 0 CO CO BLOOD [facility]8 HATTIE KUHN OBSERVATI 0 CO CO ON HOSPITAL HOSPITAL SERVICE PER HOUR ANTIBODY 67917 HATTIE KUHN INFLUENZA 0 CO CO VIRUS [facility] BASIC 11257 HATTIE KUHN METABOLIC 0 CO CO PANEL [facility] CALCIUM TOTAL CUL BACT 29284 HATTIE KUHN XCPT 0 CO CO URINE [facility] BLOOD/STO OL AEROBIC ISOL PRESSURIZ 43515 HATTIE KUHN ED/NONPRE 0 CO CO SSURIZED HOSPITAL H[place] [address] HATTIE KUHN STREPTOCO 0 CO CO CCUS [facility] GROUP A COLLECTIO 53837 HATTIE KUHN N VENOUS 0 CO CO BLOOD [facility] VENIPUNCT URE URNLS DIP 65303 HATTIE KUHN 0 CO CO STICK/TAB [facility] HOSP[facility] [place] [address] HATTIE KUHN INFUSION 0 CO CO THERAPY/P [facility] ROPHYLAXI S /DX 1ST TO 1 HR GONADOTRO 91355 HATTIE KUHN PIN 0 CO CO CHORIONIC [facility] QUALITATI VE RADIOLOGI 09259 HATTIE KUHN C EXAM 0 CO CO CHEST 2 [facility] VIEWS FRONTAL&L ATERAL BLOOD 79332 HATTIE KUHN COUNT 0 CO CO SMEAR [facility] MCRSCP W/MNL DIFRNTL WBC COUNT RADEX 11980 HATTIE KUHN HAND 0 CO CO MINIMUM 3 [facility] HOSPITAL VIEWS URINLS 40042 [facility] YOUNG, DIP 0 MEDICAL DINAH R STICK/TAB CLINIC LET REAGNT NON-AUTO MICRSCPY BASIC 82592 [facility] [place] [facility]IC 0 [facility] CALCIUM TOTAL BLOOD 08750 [facility] [place] COUNT 0 [facility] AUTO&[place] [address] [place] ABDOMEN 0 [facility] T MATERIAL CT PELVIS 51766 [place] 0 [facility] T MATERIAL COLLECTIO 35184 [place] N VENOUS 0 [facility] [place] [address] [facility] THYROID 0 [facility] [place] [address] [facility] INSULIN 0 [facility] TOTAL DEHYDROEP 82718 [facility] IANDROSTE 0 [facility] JEWEL-SULF [place]E [place] 03-18-201 61048 [facility] PROLACTIN 0 [facility] GLUCOSE 47854 [facility] QUANTITAT 0 [facility] MORENITA BLOOD XCPT REAGENT STRIP URINLS 38950 REJI ALBARADO, DIP 0 MEDICAL DINAH R STICK/TAB CLINIC LET REAGNT NON-AUTO MICRSCPY CULTURE 87972 [facility] BACTERIAL 0 AMERIC AMERIC HOLDING HOLDING QUANTTATI VE COLONY COUNT URINE URINLS 30890 REJI YOUNG, DIP 0 MEDICAL DINAH R STICK/TAB CLINIC LET REAGNT NON-AUTO MICRSCPY URINE 89389 REJI ALBARADO, 0 MEDICAL DINAH R TEST CLINIC VISUAL COLOR CMPRSN METHS THERAPEUT 28563 [facility], IC PX 1/> 9 VISION ZEINAB S AREAS ANDLEARNI EACH 15 NG MIN EXERCISES ORTHOPTIC 11887 [facility], 9 VISION ZEINAB S &/PLEOPTI ANDLEARNI C NG TRAINING W/[place] [address] [facility], 1/> AREAS 9 VISION ZEINAB S EACH 15 ANDLEARNI MIN NG NEUROMUSC REEDUCA ORTHOPTIC 91500 [facility], 9 VISION ZEINAB S &/PLEOPTI ANDLEARNI C NG TRAINING W/[place] [address] [facility], 1/> AREAS 9 VISION ZEINAB S EACH 15 ANDLEARNI MIN NG NEUROMUSC REEDUCA THERAPEUT 39654 [facility] [place], IC PX 1/> 9 VISION ZEINAB S AREAS ANDLEARNI EACH 15 NG MIN EXERCISES THERAPEUT 74906 [facility], IC PX 1/> 9 VISION ZEINAB S AREAS ANDLEARNI EACH 15 [place] [address] [facility], 1/> AREAS 9 VISION ZEINAB S EACH 15 ANDLEARNI MIN NG NEUROMUSC REEDUCA ORTHOPTIC 69958 [facility], 9 VISION ZEINAB S &/PLEOPTI ANDLEARNI C NG TRAINING W/[place] [address] VJ CAINMAN, ABDOMINAL 9 ZEINAB S REAL RADIOLOGY TIME W/IMAGE ASSOCIATE DOCUMENTA S PSC TION RADEX 58033 [facility], SHOULDER 9 ZEINAB S COMPLETE RADIOLOGY MINIMUM 2 VIEWS ASSOCIATE S PSC RADEX 52035 [place], ELBOW 9 ZEINAB S COMPLETE RADIOLOGY MINIMUM 3 VIEWS ASSOCIATE S PSC RADEX HIP 03725 HATTIE KUHN 9 CO CO [facility] COMPLETE MINIMUM 2 VIEWS URNLS DIP 43900 HATTIE KUHN 9 CO CO STICK/TAB [facility] HOSPITAL LET REAGENT AUTO MICROSCOP Y RADIOLOGI 23572 [place], C 9 ZEINAB S EXAMINATI RADIOLOGY ON PELVIS 1/2 ASSOCIATE VIEWS S PSC CULTURE 44310 HATTIE KUHN BACTERIAL 9 [facility] QUANTTATI VE COLONY COUNT URINE THERAPEUT 61512 [facility] [place], IC PX 1/> 9 VISION ZEINAB S AREAS ANDLEARNI EACH 15 [place] [address] [facility], 1/> AREAS 9 VISION ZEINAB S EACH 15 ANDLEARNI MIN NG NEUROMUSC REEDUCA ORTHOPTIC 29612 [facility], 9 VISION ZEINAB S &/PLEOPTI ANDLEARNI C NG TRAINING W/MEDICAL DIRECTJ ORTHOPTIC 44884 [facility], 9 VISION ZEINAB S &/PLEOPTI ANDLEARNI C NG TRAINING W/MEDICAL DIRECTJ THERAPEUT 62471 [place], IC PX 1/> 9 VISION ZEINAB S AREAS ANDLEARNI EACH 15 [place] [address] [facility], 1/> AREAS 9 VISION ZEINAB S EACH 15 ANDLEARNI [place] [address] [facility], 1/> AREAS 9 VISION ZEINAB S EACH 15 ANDLEARNI MIN NG NEUROMUSC REEDUCA THERAPEUT 11095 [facility], IC PX 1/> 9 VISION ZEINAB S AREAS ANDLEARNI EACH 15 NG MIN EXERCISES ORTHOPTIC 50756 [facility], 9 VISION ZEINAB S &/PLEOPTI ANDLEARNI C NG TRAINING W/MEDICAL DIRECTJ SENSORMOT 48682 [facility], [place] XM 9 VISION ZEINAB S W/STEM SIZER ANDLEARNI HILDA NG OCULAR DEVIJ W/I&R SPX FITTING 76951 [facility] SPECTACLE 9 [employer] ZEINAB [place] S XCPT ASSOCIATE APHAKIA S MONOFOCAL 1 VISN V2103 [facility] PLANO 9 [employer] ZEINAB S TO+/-4.00 ASSOCIATE D SPHER S 0.12-2.00 D CYL EA FRAMES V2020 FAMILY FALCON, PURCHASES 9 EYECARE ZEINAB S ASSOCIATE S DETERMINA 33931 FAMILY FALCON TION 9 EYECARE ZEINAB S REFRACTIV ASSOCIATE E STATE S OPHTH 97394 FAMILY FALCON MEDICAL 9 EYECARE ZEINAB S XM&EVAL ASSOCIATE COMPRE S NEW PT 1/> [place] [address] HATTIE KUHN STREPTOCO 9 [facility] A CUL BACT 71930 HATTIE KUHN XCPT 9 [facility] URINE [facility] BLOOD/STO OL AEROBIC ISOL ANTIBODY 65575 HATTIE KUHN INFLUENZA 9 [facility] CUL BACT [address]N XCPT [address] [facility] BLOOD/[place] [address] [address]N STRE[address]O [address] [facility] [place] [address] HATTIE KUHN STREPTOCO [address] [facility] CUL BACT 04529 HATTIE KHUN XCPT 9 [facility] URINE [facility] BLOOD/STO OL AEROBIC ISOL THER 76223 HATTIE KUHN PROPH/DX 8 [facility] SUBQ/IM RADIOLOGI 72576 Alex GUTHRIE S EXAMINATI RADIOLOGY ON ANKLE 2 VIEWS ASSOCIATE S PSC RADIOLOGI 65924 Alex GUTHRIE S EXAMINATI RADIOLOGY ON FOOT 2 VIEWS ASSOCIATE S PSC RADEX 77917 HATTIE KUHN ANKLE 8 [facility] MINIMUM 3 VIEWS RADEX 97531 HATTIE KUHN FOOT 8 [facility] MINIMUM 3 VIEWS RADIOLOGI 28477 HATTIE KUHN C 8 [facility] ON KNEE 3 VIEWS RADIOLOGI 12674 Alex GUTHRIE 8 [facility] KNEE 1/2 VIEWS ASSOCIATE S PSC DEMO&/KERWIN 68641 INGE ALCAZAR, L OF PT 8 CHAD B CHAD B UTILIZ AERSL GEN/NEB/I NHLR/IP PERCUTANE 14768 INGEINGE, OUS TESTS 8 CHAD B CHAD B W/ALLERGE KIERA EXTRACTS INTRACUTA 92561 INGE, INGE, NEOUS 8 CHAD B CHAD B TESTS W/ALLERGE KIERA EXTRACTS BRNCDILAT 30655 INGE ALCAZAR, RSPSE 8 CHAD B CHAD B SPMTRY PRE&POST- BRNCDILAT [facility] 41680 [facility] DISCHARGE 7 Y OF [facility] DAY [place] MANAGEMEN PEDIA T 30 MIN/< SBSQ 22739 [facility] 7 Y OF [facility] CARE/DAY [place] 25 PEDIA MINUTES SBSQ 99797 [facility] 7 Y OF [facility] CARE/DAY [place] 25 PEDIA MINUTES INITIAL 12038 [facility] 7 Y OF CARE/DAY [place] 70 PEDIA MINUTES ECG 72988 [facility] ROUTINE 7 Y OF ECG [place] W/LEAST PEDIA 12 LDS W/I&R Encounters Encounter Start End Date Code Location Performer Type Date OFFICE 56106 [facility] 7 7 ASTHMA III T NEW 45 ASSOC OF MINUTES TH OFFICE 32373 [facility] OUT[facility] 7 7 CLINIC SE T VISIT 15 MINUTES [facility] - 7 7 HEALTH OUTPATIEN [facility] T PERIODIC 18503 [facility] E MED EST TH DEPT HLTH DEPT PATIENT KIERA KIERA 18-39 [facility] 7 [facility] 7 7 [facility] T OFFICE 73554 [facility] 7 7 [facility] T VISIT [facility] DEPT [facility] DEPT 10 KIERA KIERA MINUTES OFFICE 68935 [facility] 7 HEALTH T NEW 60 MEDICAL MINUTES [facility] YAZIDI - 7 7 [facility] 72141 [facility] 7 7 EMERGENCY VISIT PHYS PSC HIGH SEVERITY& THREAT FUNCJ OFFICE 11476 [facility] 7 7 T NEW 20 MINUTES OFFICE 79544 [facility]ASI [facility]Z [facility] 7 7 PHYSICIAN T VISIT PRACTICE 15 L MINUTES OFFICE 28135 [facility]ELIA [facility] 7 7 CLINIC SE T VISIT 15 MINUTES EMERGENCY 62214 CLEMENT MUNIZ 7 7 PHYSICIAN DEPARTMEN S, [facility] T VISIT HIGH/URGE NT SEVERITY [facility]OSPITAL [facility] - 7 7 [facility] T EMERGENCY 25759 [facility] 7 7 [facility] DEPART[facility] T VISIT LOW/MODER SEVERITY OFFICE 29027 [facility] 7 7 [facility] T VISIT [facility] DEPT [facility] DEPT 10 KIERA KIERA MINUTES OFFICE 83152 [facility] 7 7 CLINIC T VISIT 15 [facility] T EMERGENCY 40237 [facility] 6 6 [facility] VISIT MODERATE SEVERITY EMERGENCY 21003 [facility] 6 6 DARRIN PAT DEPARTMEN EMERGENCY T VISIT PHYS HIGH/URGE NT SEVERITY OFFICE 85705 [facility] 5 HLTH DEPT HLTH DEPT MINUTES KIERA KIERA OFFICE 80545 [facility] DEPT [facility]TH DEPT 10 KIERA KIERA MINUTES OFFICE 17356 VELIA SCHMITZ-SHANON OUTPATIEN 6 6 [facility] T VISIT 15 MINUTES [facility] [place] [facility] 6 6 [facility] T EMERGENCY 01837 [place] 6 6 [facility] T VISIT LOW/MODER SEVERITY EMERGENCY 87723 [facility] 6 6 DARRIN DEPARTMEN EMERGENCY T VISIT PHYS MODERATE SEVERITY EMERGENCY 90481 [facility] 6 6 DARRIN NANI DEPARTMEN EMERGENCY T VISIT PHYS HIGH/URGE NT SEVERITY EMERGENCY 32428 [place] 6 6 [facility] T VISIT MODERATE SEVERITY [facility] [place] - 6 6 [facility] T PERIODIC 99323 [facility]TH DEPT HLTH DEPT PATIENT KIERA KIERA 18-39 YRS [facility] [place] - 6 6 [facility] T EMERGENCY 79797 [place] 6 6 [facility] T VISIT MODERATE SEVERITY EMERGENCY 18684 [facility] DEPARTMEN EMERGENCY T VISIT PHYS HIGH/URGE NT SEVERITY OFFICE 13170 [facility] 6 6 [facility] T VISIT CARE 25 CENTER MINUTES [facility] [place] - 6 6 [facility] T OFFICE 17748 VELIA SCHMITZ- OUTPATIEN 6 6 [facility] T VISIT 25 MINUTES OFFICE 74319 [facility] T VISIT HLTH DEPT [facility] DEPT 10 KIERA KIERA MINUTES OFFICE 51135 [facility]IA [facility]ATES OUTPATIEN 6 6 CLINIC T VISIT 15 MINUTES OFFICE 30633 [facility] OUTPATI[facility] 6 6 [facility] T NEW 45 CARE MINUTES CENTER OFFICE 68171 VELIA BARNETT OUTPATIEN 6 6 [facility] T VISIT 15 MINUTES OFFICE 43815 HATTIE RESENDIZ OUTPATIEN 6 6 [facility] T VISIT URGENT 25 TREAT MINUTES OFFICE 48173 [facility]ISIT HLTH DEPT [facility] DEPT 10 KIERA KIERA MINUTES OFFICE 49703 HATTIE RESENDIZ OUTPATIEN 6 6 [facility] T VISIT URGENT 25 TREAT MINUTES EMERGENCY 03593 VORCASEYOR VORCASEYOR 5 5 [facility] DEPARTMEN T VISIT HIGH/URGE NT SEVERITY OFFICE 00207 HATTIE RESENDIZ OUTPATIEN 5 5 [facility] T VISIT URGENT 25 TREAT MINUTES OFFICE 12531 [facility] 5 [facility] T VISIT HLTH DEPT [facility] DEPT 10 KIERA KIERA MINUTES OFFICE 17833 EAR, NOSE SHASHY CONSULTAT 5 5 AND MIRANDA ION THROAT NEW/ESTAB SPECIAL PATIENT 60 MIN OFFICE 78127 HATTIE RESENDIZ OUTPATIEN 5 5 [facility] T VISIT URGENT 25 TREAT MINUTES EMERGENCY 31114 VORKPOR VORKPOR 5 5 [facility] DEPARTMEN T VISIT HIGH/URGE NT SEVERITY INITIAL 82005 [facility]TH DEPT [facility] DEPT MEDICINE KIERA KIERA NEW PT AGE 18-39YRS [facility] MIMI - 5 5 [facility] OUTPATIEN [facility] T EMERGENCY 74230 MIMI 5 5 [facility] T VISIT LOW/MODER SEVERITY EMERGENCY 86092 CLEMENT HERNADEZ 5 5 [facility] T VISIT MODERATE SEVERITY [facility] 5 [facility] T EMERGENCY 78444 [facility] 5 5 [facility] VISIT HIGH/URGE NT SEVERITY EMERGENCY 22965 [facility] DEPT 5 5 EDW EDW VISIT HIGH SEVERITY& THREAT [facility] 5 [facility] T OFFICE 50603 VELIA SCHMITZ-SHANON OUTPATIEN 5 5 [facility] T VISIT 15 MINUTES [facility] 5 [facility] T EMERGENCY 46069 [facility] 5 5 [facility] VISIT HIGH/URGE NT SEVERITY OFFICE 33089 VELIA SCHMITZ-SHANON OUTPATIEN 5 5 [facility] T VISIT 15 MINUTES OFFICE 81224 [facility] 5 CHAD CHAD T VISIT 25 MINUTES OFFICE 23681 [facility]IA OATES OUTPATIEN 4 4 CLINIC T VISIT 15 MINUTES EMERGENCY 58264 SESAR HERNADEZ DEPT 4 4 VISIT HIGH SEVERITY& THREAT [facility] OFFICE 55322 [facility] OUTPATIEN 4 4 ADULT MARISEL T VISIT PRIMARY 15 CARE CLI MINUTES HOSPITAL MIMI - 4 4 [facility] OUT[facility] T OFFICE 55844 VELIA OATES OUTPATIEN 4 4 CLINIC T VISIT 15 MINUTES OFFICE 86858 [facility]TR[facility] OUTPATIEN 4 4 ADULT MARISEL T VISIT PRIMARY 15 CARE CLI MINUTES OFFICE 93246 VELIA OATES OUTPATIEN 4 4 CLINIC T VISIT 15 MINUTES OFFICE 35237 [facility] OUTPATIEN 4 4 ADULT MARISEL T VISIT PRIMARY 15 CARE CLI MINUTES EMERGENCY 76300 MIMI 4 4 [facility] DEPARTMEN [facility] T VISIT LOW/MODER SEVERITY HOSPITAL M[facility] - 4 4 [facility] OUTPATIEN INC T EMERGENCY 22870 DEANGELO MUNIZ 4 4 [facility] T VISIT MODERATE SEVERITY OFFICE 11568 VELIA SCHMITZ- OUTPATIEN 4 4 [facility] T VISIT 15 MINUTES OFFICE 97572 VELIA SCHMITZ-SHANON OUTPATIEN 4 4 [facility] T VISIT 15 MINUTES OFFICE 42656 MEANS BUTROS OUTPATIEN 4 4 ADULT MARISEL T VISIT PRIMARY 15 CARE CLI MINUTES OFFICE 09080 [facility]GR[facility] RICHARDS, OUTPATIEN 4 4 JR. JAM T VISIT ORTHOPAED 15 ICS SPORT MINUTES [facility]OSPITAL [facility] - 4 4 [facility] OUTPATIEN [place] T EMERGENCY 17704 FLAVIO MUNIZ 4 4 JANA JANA DEPARTMEN T VISIT MODERATE SEVERITY OFFICE 59927 INTEGRITY CHATTHA OUTPATIEN 4 4 SHANNON T VISIT ORTHOPAED 15 ICS SPORT MINUTES OFFICE 73070 VELIA SCHMITZ- OUTPATIEN 4 4 [facility] T VISIT 15 MINUTES OFFICE 23290 CHATFREDIA MOOKIE OUTPATIEN 4 4 SHANNON SHANNON T NEW 30 MINUTES OFFICE 94597 LUIS FERNANDO LUIS FERNANDO CONSULTAT 4 4 LES LES ION NEW/ESTAB PATIENT 40 MIN OFFICE 69833 VELIA RICHARDSON OUTPATIEN 4 4 CLINIC SERA T VISIT 25 MINUTES OFFICE 92749 VELIASHERRELL SCHMITZ- OUTPATIEN 4 4 [facility]IC [facility] T VISIT 15 MINUTES OFFICE 94744 [facility] 4 4 [facility] V[facility] 15 [facility]ES [facility] - 4 4 [facility]OC[facility] OUTPATIEN [facility]ATTIE T CO HOS OFFICE 84803 [facility] 4 4 [place] T VISIT 15 MINUTES [facility] - 4 4 [facility] OUTPATIEN HATTIE T CO HOS OFFICE 69392 [facility] OUTPAT[facility] 4 4 [place] T VISIT 10 MINUTES OFFICE 47256 INGE ALCAZAR OUTPATIEN 4 4 CHAD CHAD T VISIT 25 MINUTES OFFICE 97979 [facility] 4 4 [place] T VISIT 15 MINUTES OFFICE 96325 ASTRID ASTRID OUTPATIEN 4 4 KAREN JONES T VISIT 15 MINUTES PERIODIC 59080 [facility] PREVENTIV 4 4 [place] E MED EST PATIENT - [facility] - 4 4 [facility] OUTPATIEN [facility]ATTIE T CO HOS EMERGENCY 57959 [facility] 4 4 [facility] DEPARTMEN HATTIE T VISIT CO HOS HIGH/URGE NT SEVERITY OFFICE 27766 [facility] OUTPAT[facility] 4 4 [place] T VISIT 10 MINUTES OFFICE 87649 [facility] OUTPAT[facility] 3 3 [place] T VISIT 15 MINUTES OFFICE 21524 INGE ALCAZAR OUTPATIEN 3 3 CHAD BONILLA T VISIT 25 MINUTES [facility] - 3 3 [facility] OUTPATIEN HATTIE T CO HOS OFFICE 64814 [facility] OUTPAT[facility] 3 3 [place] T VISIT 15 MINUTES OFFICE 63610 INGE INGE OUTPATIEN 3 3 CHAD BONILLA T VISIT 15 MINUTES [facility] - 3 3 [facility]OC[facility] OUTPATI [facility] CO HOS OFFICE 27012 [facility]STRID [facility]ENDIZ [facility] 3 3 KAREN JONES T VISIT 15 MINUTES OFFICE 92391 INGE INGE CONSULTAT 3 3 CHAD BONILLA ION NEW/ESTAB PATIENT 80 MIN [facility] T OFFICE 01459 [facility] 3 3 [place] T VISIT 15 MINUTES HOSPITAL ANTHONY - 3 3 [facility] T OFFICE 80273 ALLRAN JR ALLRAN JR CONSULTAT 3 3 KASSANDRA HUGO NEW/ESTAB PATIENT 40 MIN OFFICE 29598 [facility] 3 3 [place] T V[facility]IT 15 MINUTES [facility] - 3 3 [facility] HATT[facility] T CO HOS OFFICE 39139 ASTR[facility] 3 3 KAREN JONES T VISIT 15 MINUTES EMERGENCY 24183 KARI PIERCE 3 3 MARIANA MARIANA [facility] T VISIT HIGH/URGE NT SEVERITY HOSPITAL [facility], - 3 3 [facility] INPATIENT HATTIE NE HOS [facility]OSPITAL UN[facility] - 3 3 Y [facility] - 3 3 [facility] OUTPATIEN [facility] HOS OFFICE 15915 AHMED ADN AHMED ADN OUTPATIEN 3 3 T VISIT 15 MINUTES OFFICE 95690 VITOR ADLER OUTPATIEN 3 3 TONYA TONYA T NEW 30 MINUTES OFFICE 68550 VELIA BARNETT OUTPATIEN 3 3 [facility] T VISIT 15 MINUTES HOSPITAL [facility] - 3 3 [facility] OUTPATIEN HATTIE T CO HOS OFFICE 58832 VELIA SCHMITZ- OUTPATIEN 3 3 [facility] T NEW 30 MINUTES OFFICE 36246 MARYANN MARYANN OUTPATIEN 3 3 ALICIAAlfreda VARGAS T VISIT 40 MINUTES OFFICE 87329 AHMED ADN AHMED ADN OUTPATIEN 2 2 T VISIT 15 MINUTES OFFICE 75733 [facility] FLOM[facility]OF OUTPATIEN 2 2 T MANUEL T MANUEL T VISIT 25 MINUTES HOSPITAL UNIVERSIT [facility] 2 2 [facility] - 2 2 [facility] OUTPATIEN HATTIE T CO HOS EMERGENCY 27183 [facility], 2 2 [facility] DEPARTMEN HATTIE T VISIT CO HOS LOW/MODER SEVERITY HOSPITAL [facility] - 2 2 [facility] OUTPATIEN HATTIE T CO HOS OFFICE 36406 AHMED ADN AHMED ADN OUTPATIEN 2 2 T VISIT 15 MINUTES OFFICE 25523 [facility], OUTPATIEN 2 2 [facility] T VISIT 5 HATTIE MINUTES CO HOS OFFICE 47399 AHMED ADN AHMED ADN OUTPATIEN 2 2 T NEW 60 MINUTES OFFICE 35738 FL[facility]OF FLOMENHOF CONSULTAT 2 2 T MANUEL T MANUEL ION NEW/ESTAB PATIENT 40 MIN HOSPITAL UNIVERSIT - 2 2 Y [facility], - 2 2 [facility] OUTPATIEN HATTIE T CO HOS EMERGENCY 64478 [facility], 2 2 [facility] DEPARTMEN HATTIE T VISIT CO HOS LIMITED/M INOR PROB EMERGENCY 54631 HATTIE BROOKS 2 2 CO [facility] T VISIT MODERATE SEVERITY OFFICE 58966 MD DIEGO CORTEZ MD OUTPATIEN 2 2 STEPHEN STEPHEN T VISIT 15 MINUTES OFFICE 04498 SARY OKEEFE CONSULTAT 2 2 JOSE JOSE ION NEW/ESTAB PATIENT 60 MIN [facility] 2 2 [facility] T OFFICE 69856 PER ALBARADO JR OUTPATIEN 2 2 VIRGINIE VIRGINIE T VISIT 15 MINUTES EMERGENCY 74760 ANTHONY 2 2 [facility] HIGH/URGE NT SEVERITY [facility] [place] [address]1974 2 [facility] T EMERGENCY 43524 SESAR HERNADEZ DEPT 2 2 VISIT HIGH SEVERITY& THREAT FUNCJ OFFICE 26429 PER ALBARADO JR OUTPATIEN 2 2 VIRGINIE VIRGINIE T VISIT 15 MINUTES OFFICE 75639 MD DIEGO CORTEZ MD OUTPATIEN 2 2 STEPHEN STEPHEN T VISIT 15 MINUTES OFFICE 04260 JEFE MAYBERRY DARRION OUTPATIEN 2 2 T VISIT 15 MINUTES OFFICE 35097 JEFE MAYBERRY DARRION OUTPATIEN 2 2 T VISIT 25 MINUTES OFFICE 49225 JEFE MAYBERRY DARRION OUTPATIEN 2 2 T VISIT 15 MINUTES OFFICE 35452 JEFE MAYBERRY DARRION OUTPATIEN 1 1 T VISIT 15 MINUTES OFFICE 84695 JEFE MAYBERRY DARRION OUTPATIEN 1 1 T VISIT 15 MINUTES EMERGENCY 17998 HATTIE 1 1 [facility] T VISIT LOW/MODER SEVERITY EMERGENCY 98417 HATTIE 1 1 [facility] T VISIT LIMITED/M INOR PROB HOSPITAL HATTIE - 1 1 [facility] T OFFICE 70702 MD DIEGO CORTEZ MD OUTPATIEN 1 1 STEPHEN STEPHEN T NEW 30 MINUTES HOSPITAL [facility] - 1 1 [facility] 13650 HIEN EVI 1 1 MEDICAL MAR [facility] SERV T VISIT FOUNDATIO HIGH/URGE NT SEVERITY EMERGENCY 71459 UNIVERSIT DEPT 1 1 Y VISIT HOSPITAL HIGH SEVERITY& THREAT FUNCJ EMERGENCY 68270 HATTIE 1 1 CO [facility] T VISIT HIGH/URGE NT SEVERITY HOSPITAL HATTIE - 1 1 [facility] T EMERGENCY 81703 DREW BARRIENTOS 1 1 EMERGENCY PAT [facility] SERVICES T VISIT HIGH/URGE NT SEVERITY [facility] T OFFICE 96029 REJI MAYBERRY DARRION OUTPATIEN 1 1 MEDICAL T VISIT CLINIC 25 MINUTES EMERGENCY 78846 HATTIE 1 1 CO [facility] T VISIT LOW/MODER SEVERITY HOSPITAL HATTIE - 1 1 [facility] T OFFICE 07458 REJI MAYBERRY [facility] 1 1 MEDICAL T VISIT CLINIC 25 MINUTES OFFICE 56592 SPIREK SPIREK OUTPATIEN 0 0 ANI ANI T VISIT 15 MINUTES HOSPITAL HATTIE - 0 0 [facility] T EMERGENCY 15971 HATTIE DEPT 0 0 CO VISIT HOSPITAL HIGH SEVERITY& THREAT FUNCJ OFFICE 98923 REJI ALBARADO [facility] 0 0 MEDICAL T VISIT CLINIC 15 MINUTES HOSPITAL HATTIE - 0 0 [facility] T EMERGENCY 10577 HATTIE BLANK, 0 0 CO [facility] T VISIT MODERATE SEVERITY [facility] T OFFICE 66328 REJI ALBARADO OUTPATIEN 0 0 MEDICAL DINAH R T VISIT CLINIC 25 MINUTES OFFICE 84125 SPIREK, MIRYAM OUTPATIEN 0 0 MONROE J MONROE J T NEW 30 MINUTES OFFICE 69492 REJI ALBARADO OUTPATIEN 0 0 MEDICAL DINAH R T VISIT CLINIC 25 MINUTES PERIODIC 56109 REJI ALBARADO PREVENTIV 0 0 MEDICAL DINAH R E MED EST CLINIC PATIENT 12-17YRS HOSPITAL HATTIE - 9 9 [facility] T OFFICE 03253 [place] KRYS SÁNCHEZ 9 9 RICKEY Da Silva T VISIT INTERNAL 15 MED MINUTES HOSPITAL HATTIE Gong 9 9 [facility] T EMERGENCY 43163 HATTIE JAIN 9 9 CO , [facility] VISIT MODERATE SEVERITY EMERGENCY 43385 HATTIE 9 9 CO [facility] T VISIT LOW/MODER SEVERITY OFFICE 83580 [place] KRYS SÁNCHEZ 9 9 [place] Da Silva T VISIT INTERNAL 15 MED MINUTES OFFICE 86667 [facility] 9 RICKEY RODRIGUEZ T VISIT INTERNAL MOODY F 15 MED MINUTES HOSPITAL HATTIE - 9 9 CO [facility] HATTIE - 9 9 [facility] T OFFICE 37081 [place] KRYS WREN 9 9 RICKEY COLE T VISIT INTERNAL 10 MED MINUTES HOSPITAL HATTIE - 9 9 [facility] HOSPITAL HATTIE - 8 8 [facility] T EMERGENCY 52164 HATTIE BLANK 8 8 CO [facility] T VISIT LIMITED/M INOR PROB HOSPITAL HATTIE - 8 8 [facility] T EMERGENCY 38674 HATTIE BLANK, 8 8 [facility] T VISIT LOW/MODER SEVERITY EMERGENCY 18218 HATTIE 8 8 CO [facility] T VISIT LIMITED/M INOR PROB OFFICE 45712 KRYS UMAÑA 8 8 [facility] VISIT INTERNAL 10 MED MINUTES OFFICE 91870 INGE ALCAZAR, CONSULTAT 8 8 CHAD B CHAD B ION NEW/ESTAB PATIENT 40 MIN OFFICE 73941 RKYS UMAÑA 8 8 [place] VISIT INTERNAL 15 MED MINUTES
--- OUTSIDE RECORDS SUMMARY | 2017-09-02 19:09 | External Medical Summary Rpt | CCD ---
Author Author , SJ GUSTAFSON Address Unknown Phone [email or web address] Immunization Name Date Rout CVX Reac Dose Comm Prov Is Faci e tion ent ider Refu lity Give sed n Vari 03-1 21 0.50 Hist SWIT No H191 cell 5-20 mL oric ZER a 16 al TAMM Info Y rmat ion - Sour ce Unsp ecif ied Tdap 10-2 115 999 Hist NM No NM , 1-20 oric Adso 15 al rbed [...] ied Hep 08-1 Subc 8 999 Hist NM No NM B, 6-19 utan oric ped/ 96 eous al adol Info rmat ion - Sour ce Unsp ecif ied
--- OUTSIDE RECORDS SUMMARY | 2017-09-02 19:09 | External Medical Summary Rpt | CCD ---
Author Author , SJ GUSTAFSON Address Unknown Phone [email or web address] Immunization Name Date Rout CVX Reac Dose Comm Prov Is Faci e tion ent ider Refu lity Give sed n Vari 03-1 21 0.50 Hist SWIT No H191 cell 5-20 mL oric ZER a 16 al TAMM Info Y rmat ion - Sour ce Unsp ecif ied Tdap 10-2 115 999 Hist [place] No [place] , 1-20 oric Adso 15 al rbed [...] ied Hep 08-1 Subc 8 999 Hist [place] No [place] B, 6-19 utan oric ped/ 96 eous al adol Info rmat ion - Sour ce Unsp ecif ied
--- OUTSIDE RECORDS SUMMARY | 2017-09-02 19:10 | External Medical Summary Rpt ---
[...] source source data data data data CHART [id number] No No No No Jun 07 NUMBER [...] MAY HAVE ADVERSE PSYCHO- SOCIAL IMPACT, [facility] MMENDS RETESTI NG.\.br \This report contain s [...] source source data data data data CHART [id number] No No No No Jun 07 NUMBER [...] MAY HAVE ADVERSE PSYCHO- SOCIAL IMPACT, [facility] MMENDS RETESTI NG.\.br \This report contain s patient informa tion that must be protect ed in accorda nce with the Health Insuran ce Portabi lity and Account ability Act. CHLAMYDIA AND GONORRHEA TESTING Observa Value Referen Units Interpr Notes Date tion ce etation Range COLLECT S.JSOE No No No No Dec 16 OR [...] OR WEINER informa informa informa informa 2016 COLLECTION OFFICER tion in tion in tion in tion [...] MAY HAVE ADVERSE PSYCHO- SOCIAL IMPACT, [facility] MMENDS RETESTI NG.\.br \This report contain s patient informa tion that must be protect ed in accorda nce with the Health Insuran ce Portabi lity and Account ability Act. CHLAMYDIA AND GONORRHEA TESTING Observa Value Referen Units Interpr Notes Date tion ce etation Range COLLECT PT/J No No No No Jun 09 OR WEINER informa informa informa informa 2016 COLLECTION OFFICER tion in tion in tion in tion [...] OR MILLS informa informa informa informa 2015 COLLECTION OFFICER tion in tion in tion in tion [...] MAY HAVE ADVERSE PSYCHO- SOCIAL IMPACT, [facility] MMENDS RETESTI NG.\.br \This report contain s patient informa tion that must be protect ed in accorda nce with the Health Insuran ce Portabi lity and Account ability Act. CHLAMYDIA AND GONORRHEA TESTING Observa Value Referen Units Interpr Notes Date tion ce etation Range COLLECT PT/M. No No No No Jun 10 OR MILLS informa informa informa informa 2014 COLLECTION OFFICER tion in tion in tion in tion [...]
--- OUTSIDE RECORDS SUMMARY | 2017-09-02 19:10 | External Medical Summary Rpt ---
[...] source source data data data data CHART [id number] No No No No Jun 07 NUMBER [...] HAVE ADVERSE PSYCHO- SOCIAL IMPACT, [facility] MM[facility]DS RETESTI NG.\.br \This report contain s [...] source source data data data data CHART [id number] No No No No Jun 07 NUMBER [...] HAVE ADVERSE PSYCHO- SOCIAL IMPACT, [facility] MMENDS RETESTI NG.\.br \This report contain s [...] OR WEINER informa informa informa informa 2016 CERTIFIED ORTHOTIST/PEDORTHIST tion in tion in tion in tion [...] HAVE ADVERSE PSYCHO- SOCIAL IMPACT, [facility] MMENDS RETESTI NG.\.br \This report contain s patient informa tion that must be protect ed in accorda nce with the Health Insuran ce Portabi lity and Account ability Act. CHLAMYDIA AND GONORRHEA TESTING Observa Value Referen Units Interpr Notes Date tion ce etation Range COLLECT PT/J No No No No Jun 09 OR WEINER informa informa informa informa 2016 CERTIFIED ORTHOTIST/PEDORTHIST tion in tion in tion in tion [...] OR MILLS informa informa informa informa 2015 CERTIFIED ORTHOTIST/PEDORTHIST tion in tion in tion in tion [...] HAVE ADVERSE PSYCHO- SOCIAL IMPACT, [facility] MMENDS RETESTI NG.\.br \This report contain s patient informa tion that must be protect ed in accorda nce with the Health Insuran ce Portabi lity and Account ability Act. CHLAMYDIA AND GONORRHEA TESTING Observa Value Referen Units Interpr Notes Date tion ce etation Range COLLECT PT/M. No No No No Jun 10 OR MILLS informa informa informa informa 2014 CERTIFIED ORTHOTIST/PEDORTHIST tion in tion in tion in tion [...]
== END ==
LOC: ER 11:48 → SDC 12:53
PROVIDERS: Surgery
PROC: 0DC58ZZ Extirpation of Matter from Esophagus, Via Natural or Artificial Opening Endoscopic (ICD-10-PCS; principal; 2017-08-28 14:00)
DX: T18.128A Food in esophagus causing other injury, initial encounter (principal)